=== PATIENT | female | born 1985 | race Caucasian/White ===

== ENCOUNTER 2023-09-18 10:26 | Emergency (ER) | payer OTHER, SELFPAY ==
[2023-09-18 10:41] VITALS: BP 141/86; PULSE 84; RESP 18; TEMP 36.8; O2SAT 99; BMI 31.3
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
[2023-09-18 11:22] LABS: HCG Qualitative NEGATIVE (NEGATIVE)
--- NOTE | 2023-09-18 11:36 | ED_ITS ---
HPI - Female Genitourinary General Chief complaint: Urogenital-Female Stated complaint: Medical Devices Time Seen by Provider: 09/18/23 10:52 Source: patient Mode of arrival: Wheelchair Limitations: no limitations History of Present Illness HPI Narrative: Patient have history of being paraplegic is coming to the ER after she has been having left lower abdominal pain as well as back pain and vaginal bleeding since she had her Alfonso catheter changed she is chronically dependent on a Alfonso catheter since she is paraplegic The patient denies any other complaints she did had her menstruation earlier in August No other complaints of burning with urination or any other concerns Related Data Previous Rx's Medication Instructions Recorded dicyclomine 20 mg tablet 20 mg PO QID PRN abdominal pain 09/18/23 #10 tabs Allergies Allergy/AdvReac Type Severity Reaction Status Date / Time cefazolin Allergy Intermediate Verified 09/18/23 10:46 ciprofloxacin [From Cipro] Allergy Intermediate Verified 09/18/23 10:46 Review of Systems ROS Status of ROS 10 or more systems reviewed and unremarkable except as noted in history and below PFSH PFS Social History Smoking status: Current every day smoker Exam Narrative Exam Narrative: Nurses notes and vital signs reviewed and patient is not hypoxic. General: Well-appearing and in no apparent distress. Skin: Warm, dry, no pallor noted. No rash. Head: Normocephalic, atraumatic. Neck: Supple, non-tender. Eye: Pupils are equal, round and EOMI. No scleral icterus. Ears, Nose, Mouth, and Throat: TM are clear, no nasal mucosal hypertrophy. Or al mucosa is moist, no posterior oropharynx erythema, uvula is mid-line Cardiovascular: Regular Rate and Rhythm without murmur, gallop or rub. Respiratory: No accessory muscle use or respiratory distress. Lungs are clear to auscultation, no wheezing, rales or rhonchi Chest Wall: no tenderness Back: Back examination shows that the patient have midline scars from previous surgery Abdominal exam the patient also had abdominal examination showed that she have left lower quadrant abdominal pain as well as vaginal exam showed that she had vaginal bleeding The patient have bilateral lower extremity weakness due to her history of paraplegia Constitutional Vital Signs, click to edit/add: Last Vital Signs Temp 98.3 F 09/18/23 10:41 Pulse 56 L 09/18/23 15:50 Resp 18 09/18/23 10:41 BP 120/71 09/18/23 15:50 Pulse Ox 98 09/18/23 15:50 O2 Del Method Room Air 09/18/23 10:41 Course Vital Signs Vital signs: Vital Signs Temperature 98.3 F 09/18/23 10:41 Pulse Rate 84 09/18/23 10:41 Respiratory Rate 18 09/18/23 10:41 Blood Pressure 141/86 09/18/23 10:41 Pulse Oximetry 99 09/18/23 10:41 Oxygen Delivery Method Room Air 09/18/23 10:41 Temperature 98.3 F 09/18/23 10:41 Pulse Rate 56 L 09/18/23 15:50 Respiratory Rate 18 09/18/23 10:41 Blood Pressure 120/71 09/18/23 15:50 Pulse Oximetry 98 09/18/23 15:50 Oxygen Delivery Method Room Air 09/18/23 10:41 MDM - Female Genitourinary MDM Narrative Medical decision making narrative: The patient CBC and chemistry showed no acute significant pathology her CAT scan of the abdomen shows the above-mentioned result of possible lesion soft tissue at the lumbar level that could be secondary to infection, the patient was offered to be transferred for an MRI but she mentioned that she want to go to a tomorrow and she does want that today She also had a left lower quadrant pain and she did had ovarian cyst but after an ultrasound shows no acute pathology and no ovarian torsion Urinalysis showed no acute pathology The patient right now presenting with vaginal bleeding at this lesion by the spine is still need an MRI for clarification although the patient have no signs of infection but she does have the risk factor for it the patient will sign herself AMA because she does not want MRI to be done now but she will come back according to her after the to do the MRI During the week Lab Data Labs: Lab Results 09/18/23 09/18/23 Range/Units 11:00 12:55 WBC 4.0 (4.0-11.0) 10^3/uL RBC 4.69 (4.20-5.40) 10^6/uL Hgb 14.5 (12.0-16.0) g/dL Hct 44.0 (36.0-48.0) % MCV 93.8 (81.0-99.0) fL MCH 30.9 (26.7-34.0) pg MCHC 33.0 (29.9-35.2) g/dL RDW 13.9 (11.0-15.0) % Plt Count 206 (150-450) 10^3/uL MPV 11.4 (9.5-13.5) fL Neut % (Auto) 57.8 (43.0-75.0) % Lymph % (Auto) 24.1 (20.5-60.0) % Moody % (Auto) 12.4 H (1.7-12.0) % Eos % (Auto) 4.5 (0.9-7.0) % Baso % (Auto) 1.0 (0.2-2.0) % Neut # (Auto) 2.3 (1.4-6.5) 10^3/uL Lymph # (Auto) 1.0 L (1.2-3.8) 10^3/uL Moody # (Auto) 0.5 (0.3-0.8) 10^3/uL Eos # (Auto) 0.2 (0.0-0.7) 10^3/uL Baso # (Auto) 0.0 (0.0-0.1) 10^3/uL Abs Immat Gran (auto) 0.01 (0.00-0.03) 10^3/uL Imm/Tot Granulo (auto) 0.2 (0.0-0.5) % Sodium 143 (136-145) mmol/L Potassium 3.4 L (3.5-5.1) mmol/L Chloride 104 (98-107) mmol/L Carbon Dioxide 31.6 (21.0-32.0) mmol/L Anion Gap 10.8 BUN 12.0 (7.0-18.0) mg/dL Creatinine 0.52 L (0.55-1.02) mg/dL Est GFR ( Amer) >60 (>=60) Est GFR (Non-Af Amer) >60 (>=60) BUN/Creatinine Ratio 23.1 Glucose 84 (74-106) mg/dL Calcium 8.3 L (8.5-10.1) mg/dL Total Bilirubin 0.3 (0.2-1.0) mg/dL AST 13 L (15-37) U/L ALT 16 (14-59) U/L Alkaline Phosphatase 76 (46-116) U/L Total Protein 7.5 (6.4-8.2) g/dL Albumin 3.1 L (3.4-5.0) g/dL Globulin 4.4 g/dL Albumin/Globulin Ratio 0.7 Serum HCG, Qual Negative (NEGATIVE) Urine Color Lt. yellow (YELLOW) Urine Clarity Sl cloudy (CLEAR) Urine pH 6.0 (5.0-9.0) Ur Specific [place] 1.020 (1.005-1.025) Urine Protein Negative (NEG/TRACE) mg/dL Urine Glucose (UA) Negative (NEGATIVE) mg/dL Urine Ketones Negative (NEGATIVE) mg/dL Urine Occult Blood Large A (NEGATIVE) Urine Nitrite Negative (NEGATIVE) Urine Bilirubin Negative (NEGATIVE) Urine Urobilinogen 0.2 (0.2-1.0) EU/dL Ur Leukocyte Esterase Small A (NEGATIVE) Urine RBC 5-10 A (0-2) #/HPF Urine WBC 5-10 A (NONE SEEN) #/HPF Ur Squamous Epith Cells Few A (NONE/RARE) #/LPF Urine Crystals None seen (None Seen) #/HPF Urine Bacteria Small A (NONE SEEN) #/HPF Urine Casts None seen (NONE SEEN) #/LPF Urine Mucus Small A (NONE SEEN) Ur Culture Indicated? Yes Discharge Plan Discharge Chief Complaint: Urogenital-Female Clinical Impression: Abnormal vaginal bleeding, Abdominal pain Patient Disposition: Home, Self-Care Time of Disposition Decision: 16:03 Condition: Good Mode of Transportation: Private Vehicle Prescriptions / Home Meds: New dicyclomine 20 mg tablet 20 mg PO QID PRN (Reason: abdominal pain) Qty: 10 0RF Instructions: Abnormal (Dysfunctional) Uterine Bleeding (ED) Stand Alone Forms: Portal Instructions Referrals: SHALA CHAN [Primary Care Provider] - 1 week Ingris Peter MD [Physician] - 1 week
--- NOTE | 2023-09-18 11:37 | CT_ITS ---
The [address] [address] Patient Name: CHRISTINA PERALTA MRN: [id number] date: 1985 Sex: F Assigned Patient Location: ER Current Patient Location: ER Accession/Order Number: [id number] Exam Date: 09/18/2023 12:18 Report Date: 09/18/2023 13:29 At the request of: NIKOLAY HENSLEY Procedure: CT abdomen pelvis wo con CT ABDOMEN AND PELVIS WITHOUT CONTRAST HISTORY: Abdominal pain. Vaginal bleeding. COMPARISON: None. METHOD: Dose reduction techniques were achieved by using automated exposure control and/or adjustment of mA and/or kV according to patient size and/or use of iterative reconstruction technique. FINDINGS: There are no prior studies available for comparison which limits the evaluation. The lung bases are clear. The evaluation of solid organs is limited with no IV contrast. The evaluation for lymphadenopathy is very limited with no IV contrast. There is no intrahepatic biliary ductal dilatation. The spleen is normal in size. The adrenal glands are normal appearing. There are no renal stones or hydronephrosis. There is a left adnexal cystic mass measuring 4.8 x 4.9 cm. There is a Alfonso catheter in decompressed bladder. There are prominent right groin lymph nodes the largest measuring 1.8 cm. There is no bowel wall thickening or obstruction. There is no free fluid or free air. There is a retrocrural soft tissue density extending to the level of L3 within the lumbar spine associated with significant old fracture within the lumbar spine with severe anterolisthesis of L3 on L4. There is a partially calcified soft tissue density adjacent to the right ischium measuring 5.3 x 2.6 cm. There is an old left iliac bone fracture with hardware. There is fusion of the left SI joint. CT/CT abdomen pelvis wo con IMPRESSION: Large retrocrural soft tissue density extending to L3 associated with an old severe lumbar spine fracture and spondylolisthesis. This may be a chronic finding however acute infection cannot be entirely excluded. This also may be related to a prior surgery. Recommend correlation with prior imaging. If no prior imaging available and acute back pain and/or signs and symptoms of infection, recommend emergent MRI lumbar spine with and without contrast. Left adnexal cystic mass measuring 4.8 x 4.9 cm. Recommend ultrasound pelvis. Probable old hematoma or soft tissue injury adjacent to the right ischium. Electronically authenticated by: ALEXA ROBLES Date: 09/18/2023 13:29
[2023-09-18] MEDS: KETOROLAC TROMETHAMINE 30 MG/ML VIAL 15 MG IVP (11:49)
[2023-09-18] MEDS: FAMOTIDINE/PF 20 MG/2 ML VIAL IV (11:49)
[2023-09-18 11:50] LABS: Eosinophils Absolute Auto 0.2 10^3/uL (0.0-0.7); Eosinophils Percent Auto 4.5 % (0.9-7.0); Hemoglobin 14.5 g/dL (12.0-16.0); Immature Granulocytes Abs Auto 0.01 10^3/uL (0.00-0.03); Immature Granulocytes Pct Auto 0.2 % (0.0-0.5); Lymphocytes Percent Auto 24.1 % (20.5-60.0); Mean Corpuscular Hemoglobin 30.9 pg (26.7-34.0); Mean Corpuscular Volume 93.8 fL (81.0-99.0); Mean Platelet Volume 11.4 fL (9.5-13.5); Monocytes Absolute Auto 0.5 10^3/uL (0.3-0.8); Monocytes Percent Auto 12.4 % (1.7-12.0); Neutrophils Absolute Auto 2.3 10^3/uL (1.4-6.5); Neutrophils Percent Auto 57.8 % (43.0-75.0); Platelet Count 206 10^3/uL (150-450); Red Blood Count 4.69 10^6/uL (4.20-5.40); Red Cell Distribution Width 13.9 % (11.0-15.0)
[2023-09-18 11:59] LABS: Alanine Aminotransferase 16 U/L (14-59); Albumin Globulin Ratio 0.7; Albumin Level 3.1 g/dL (3.4-5.0); Alkaline Phosphatase 76 U/L (46-116); Anion Gap 10.8; Aspartate Amino Transferase 13 U/L (15-37); BUN Creatinine Ratio 23.1; Bilirubin Total 0.3 mg/dL (0.2-1.0); Calcium 8.3 mg/dL (8.5-10.1); Carbon Dioxide 31.6 mmol/L (21.0-32.0); Chloride 104 mmol/L (98-107); Estimated GFR (African America >60 (>=60); Estimated GFR (Non-African Ame >60 (>=60); Globulin 4.4 g/dL; Glucose 84 mg/dL (74-106); Potassium 3.4 mmol/L (3.5-5.1); Sodium 143 mmol/L (136-145); Total Protein 7.5 g/dL (6.4-8.2)
[2023-09-18] MEDS: MORPHINE SULFATE 2 MG/ML SYRINGE IV ×2 (13:04→15:56)
[2023-09-18 13:06] LABS: Bilirubin Urine NEGATIVE (NEGATIVE); Blood Urine LARGE (NEGATIVE); Clarity Urine SL CLOUDY (CLEAR); Color Urine LT. YELLOW (YELLOW); Glucose Urine UA NEGATIVE (NEGATIVE); Ketones Urine NEGATIVE (NEGATIVE); Leukocyte Esterase Urine SMALL (NEGATIVE); Nitrite Urine NEGATIVE (NEGATIVE); Protein Urine NEGATIVE (NEG/TRACE); Urobilinogen Urine 0.2 EU/dL (0.2-1.0)
[2023-09-18 13:07] LABS: Urine Microscopic Indicated YES
[2023-09-18 13:14] LABS: Bacteria Urine SMALL #/HPF (NONE SEEN); Cast Seen? NONE SEEN #/LPF (NONE SEEN); Crystals Seen? None Seen #/HPF (None Seen); Mucus Urine SMALL (NONE SEEN); Squamous Epithelial Cell Urine FEW #/LPF (NONE/RARE)
[2023-09-18 13:15] LABS: Urine Culture Indicated YES
--- NOTE | 2023-09-18 14:01 | US_ITS ---
[address] [address] Patient Name: CHRISTINA PERALTA MRN: [id number] date: 1985 Sex: F Assigned Patient Location: ER Current Patient Location: ER Accession/Order Number: [id number] Exam Date: 09/18/2023 14:45 Report Date: 09/18/2023 15:41 At the request of: NIKOLAY HENSLEY Procedure: US pelvis transvaginal EXAM: US pelvis transvaginal HISTORY: left lower quadrant and possible torsion COMPARISON: None. TECHNIQUE: Ultrasound examination of the pelvis with transvaginal technique. FINDINGS: Anteverted uterus. Endometrium measures 11 mm, within normal limits for age. Right ovary is not well seen. Left ovary measures 6.9 x 4.7 x 4.6 cm. Normal vascular flow the left ovary. Left ovarian cyst measuring 4.8 x 4.1 x 3.2 cm. There is adjacent complex cyst with internal septations measuring 3.6 x 3.5 x 2.2 cm. US/US pelvis transvaginal IMPRESSION: 1. No acute abnormality of the uterus. 2. Normal vascular flow of the left ovary. There are left ovarian cysts as measured above. One of the cysts is complex with internal septations. Follow-up ultrasound examination could be obtained in 2-6 months. 3. Right ovary not seen. Electronically authenticated by: JENNIE BARRERA Date: 09/18/2023 15:41
[2023-09-18 15:50] VITALS: BP 120/71; PULSE 56; O2SAT 98
[2023-09-18 16:38] VITALS: BP 121/70; PULSE 77; O2SAT 94
[2023-09-18 16:40] VITALS: O2SAT 97
== END 2023-09-18 16:46 | disposition home or self-care (01) ==
PROVIDERS: Emergency Provider Emergency Medicine; PCP Internal Medicine
DX: N93.9 Abnormal uterine and vaginal bleeding, unspecified (principal); R10.9 Unspecified abdominal pain; G82.20 Paraplegia, unspecified; F17.210 Nicotine dependence, cigarettes, uncomplicated; Z96.0 Presence of urogenital implants
CPT/HCPCS: 36415; 51702; 74176; 76830; 80053; 81001; 84703; 85025; 87086; 87150; 87186; 96374; 96375; 96376; 99285

== ENCOUNTER 2023-09-21 12:53 | Emergency (ER) | payer OTHER, SELFPAY ==
[2023-09-21 13:00] VITALS: BP 160/101; PULSE 99; RESP 20; TEMP 36.6; O2SAT 99; BMI 33.9
--- NOTE | 2023-09-21 13:34 | ED_ITS ---
HPI - General Adult General Chief complaint: Abdominal Pain Stated complaint: vaginal bleeding/uti Time Seen by Provider: 09/21/23 13:04 Source: family Mode of arrival: Wheelchair Limitations: physical limitation History of Present Illness HPI narrative: Patient is a 37-year-old female who presents to the emergency department for concern that she may need an MRI. Patient was seen in this emergency department 3 days ago for lower abdominal pain and vaginal bleeding that was noticed after the patient had a catheter change. She has a history of paraplegia. She had lab work and a CT scan 3 days ago that showed a cystic lesion on the left ovary, an ultrasound was also performed to rule out ovarian torsion. On the CT patient was noted to have a lesion on the lumbar spine that could not be ruled out as an infectious process. She was encouraged to have a further workup in the hospital with an MRI, she signed out AGAINST MEDICAL ADVICE. She returns to the ER today because she is under the impression she will have the MRI done today in the emergency department and she is also concerned that the lesion on the spine may be causing her abnormal vaginal bleeding for the last month. She has no new focal medical complaints today. Related Data Previous Rx's Medication Instructions Recorded dicyclomine 20 mg tablet 20 mg PO QID PRN abdominal pain 09/18/23 #10 tabs Allergies Allergy/AdvReac Type Severity Reaction Status Date / Time cefazolin Allergy Intermediate Verified 09/18/23 10:46 ciprofloxacin [From Cipro] Allergy Intermediate Verified 09/18/23 10:46 Review of Systems ROS Constitutional Denies: fever or chills Ears, nose, mouth, and throat Denies: throat pain Cardiovascular Denies: chest pain Respiratory Denies: shortness of breath Gastrointestinal Denies: nausea or vomiting Genitourinary Reports: vaginal bleeding Musculoskeletal Reports: back pain; Denies: neck pain Integumentary/Breast Denies: rash Neurological Denies: headache PFSH PFSH Social History Smoking status: Heavy tobacco smoker Exam Narrative Exam Narrative: Gen.: Awake, alert, in no distress Head: Normocephalic, atraumatic ENT: Moist mucous membranes Respiratory: No respiratory distress Back: No bony point tenderness Extremities: Paraplegia Psych: Normal mood and affect Neuro: No focal neuro deficit Skin: Warm, dry, intact Constitutional Vital Signs, click to edit/add: Last Vital Signs Temp 98 F 09/21/23 13:00 Pulse 99 H 09/21/23 13:00 Resp 20 09/21/23 13:00 BP 160/101 H 09/21/23 13:00 Pulse Ox 99 09/21/23 13:00 O2 Del Method Room Air 09/21/23 13:00 Course Vital Signs Vital signs: Vital Signs Temperature 98 F 09/21/23 13:00 Pulse Rate 99 H 09/21/23 13:00 Respiratory Rate 20 09/21/23 13:00 Blood Pressure 160/101 H 09/21/23 13:00 Pulse Oximetry 99 09/21/23 13:00 Oxygen Delivery Method Room Air 09/21/23 13:00 Temperature 98 F 09/21/23 13:00 Pulse Rate 99 H 09/21/23 13:00 Respiratory Rate 20 09/21/23 13:00 Blood Pressure 160/101 H 09/21/23 13:00 Pulse Oximetry 99 09/21/23 13:00 Oxygen Delivery Method Room Air 09/21/23 13:00 Medical Decision Making MDM Narrative Medical decision making narrative: I had an extensive conversation with the patient and her at bedside. I explained to the patient and her that MRIs are not done through the emergency department. I reviewed her previous records showing a questionable lesion on the lumbar spine. Patient was under the impression that the lumbar spine lesion was causing her abnormal vaginal bleeding. She has not attempted to follow-up with her ultrasonic welding machine operator, she states she did not know that was the neck step. I explained to her that her CT scan and ultrasound did not show any acute process causing the abnormal vaginal bleeding although there was noted to be a possible cystic area on the left ovary which may be accounting for her pain and bleeding. I explained that she should have further evaluation and treatment with an ELECTRONICS TECHNOLOGY INSTRUCTOR. Patient does not have any new focal medical complaints related to her lumbar spine or low back pain. She has a neurosurgeon at [facility] in [place] and sees Dr. Morse for primary care. I discussed with the patient and her that to further evaluate the lesion on the lumbar spine, we would start an IV, draw lab work to rule out any new development of bacterial infection and do a CT scan of her lumbar spine, likely with IV contrast to further evaluate the area. If an MRI continues to be indicated based on findings, patient could be admitted to this facility versus transfer to tertiary care facility with neurosurgery available. Patient states she would like to follow-up with her neurosurgeon at [facility] and does not think that she needs further workup on her lumbar spine at this time now that she knows it is not causing her vaginal bleeding. I did make her aware that she can see Dr. Morse for possible MRI of the lumbar spine in the meantime until she can see her neurosurgeon as he can order this from the office. She was made aware that if she develops fevers, vomiting, worsening of back pain, redness or swelling to her spine she should be seen immediately for reevaluation. I contacted Dr. Lambert's office, TORSTEN Melton who recommended that the patient call the office to be seen tomorrow. Patient is very grateful for care. She was tearful at time of discharge, I explained to her that she should return if symptoms change or worsen and she and her verbalized understanding. Medical Records Medical records reviewed: Yes I reviewed the patient's medical records Discharge Plan Discharge Chief Complaint: Abdominal Pain Clinical Impression: Abnormal vaginal bleeding Patient Disposition: Home, Self-Care Time of Disposition Decision: 13:31 Condition: Good Prescriptions / Home Meds: No Action dicyclomine 20 mg tablet 20 mg PO QID PRN (Reason: abdominal pain) Qty: 10 0RF Instructions: Abnormal (Dysfunctional) Uterine Bleeding (ED) Additional Instructions: Please call Dr. Lambert's office tomorrow for scheduling and when you call, please let the office know we spoke to Dana Stand Alone Forms: Portal Instructions Referrals: Pato Lambert DO [Physician] - 1 week SHALA MORSE [Primary Care Provider] - 1 week
== END 2023-09-21 13:37 | disposition home or self-care (01) ==
PROVIDERS: Emergency Provider Emergency Medicine; PCP Internal Medicine
DX: N93.9 Abnormal uterine and vaginal bleeding, unspecified (principal); G82.20 Paraplegia, unspecified; F17.210 Nicotine dependence, cigarettes, uncomplicated
CPT/HCPCS: 99281

== ENCOUNTER 2023-09-26 20:33 | Outpatient (REF) | payer OTHER, SELFPAY ==
[2023-09-29 21:07] LABS: Age Gdln ACOG Testing Note (.); HPV Aptima Negative (Negative); IGP, Aptima HPV, rfx 16/18,45 Note (.)
== END 2023-09-26 20:34 | disposition home or self-care (01) ==
LOC: LAB 20:33
PROVIDERS: PCP Internal Medicine; Visit Provider Physician Assistant
DX: Z01.419 Encounter for gynecological examination (general) (routine) without abnormal findings (principal)
CPT/HCPCS: 87624; G0145

== ENCOUNTER 2023-10-15 09:20 | Emergency (ER) | payer OTHER, SELFPAY ==
[2023-10-15 09:24] VITALS: BP 153/78; PULSE 100; RESP 16; TEMP 36.9; O2SAT 96; BMI 24.2
--- OUTSIDE RECORDS SUMMARY | 2023-10-15 09:25 | XMS_ITS | CCD ---
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 and nonvital tissues treating hypergranulation tissue presenting along said track. Following completion of the above, wound site was liberally irrigated, dressed with dry sterile dressing. The patient was then ushered to recovery area in stable condition. MD EUGENIA SARAVIA/MICAELA/[id number] E/S: Nayeli Hendricks MD 12/11/20 1317 Signature on File [facility] PATIENT NAME: CHRISTINA PERALTA [address] [place] [address] UNIT #: [id number] : 87 DOS: 12/01/20 WOUND CLINIC NOTE ATTENDING PHY: Nayeli Hendricks MD [facility] Evaluation + Plan note Future Appointments Appointment Date:05/18/2023 08:15:00 AM Scheduled Provider:Anatoly FAUSTIN, Rach Morse Location:[facility] Appointment Type:URO New Patient [facility] Hospital course Narrative No data available for this section [facility] Hospital Discharge instructions No data available for this section [facility] Progress note No data available for this section [facility] Summary Purpose Family History No Family History Records FoundNo Family History Records FoundNo Family History Records FoundNo Family History Records FoundNo Family History Records FoundNo Family History Records FoundNo Family History Records Found Advance Directives No Advanced Directives Records FoundLatest Code Status on File Code Status Date Activated Date Inactivated Comments Full Code 01/25/2021 3:05 AM 01/31/2021 7:44 AM Question Answer Comments Documentation of decision process for this code status: Discussed with patient or surrogate. This is the code status chosen by the patient/surrogate. Code Status History Code Status Date Activated Date Inactivated Comments Full Code 03/21/2020 1:21 PM 04/03/2020 6:35 PM Question Answer Comments Documentation of decision process for this code status: Discussed with patient or surrogate. This is the code status chosen by the patient/surrogate. Full Code 03/21/2020 1:24 AM 03/21/2020 1:21 PM Question Answer Comments Documentation of decision process for this code status: Discussed with patient or surrogate. This is the code status chosen by the patient/surrogate. Full Code 07/11/2015 4:19 PM 08/08/2015 2:39 PM Full Code 06/18/2015 10:49 PM 06/20/2015 8:53 PM Additional Source Comments INFORMATION SOURCE (unrecogn ized section and content) DATE CREATED AUTHOR 11/27/2021 [facility] DATE CREATED AUTHOR AUTHOR'S ORGANIZ ATION 11/29/2021 [facility] DATE CREATED AUTHOR AUTHOR'S ORGANIZ ATION 06/12/2022 [facility] DATE CREATED AUTHOR AUTHOR'S ORGANIZ ATION 09/06/2022 [facility] DATE CREATED AUTHOR AUTHOR'S ORGANIZ ATION 05/19/2023 [facility] DATE CREATED AUTHOR AUTHOR'S ORGANIZ ATION 09/28/2023 [facility] EPIC DATE CREATED AUTHOR AUTHOR'S ORGANIZ ATION 10/07/2023 [facility] Care Teams (unrecognized sec tion and content) Pressurization Mechanic Relationship Specialty Start Date End Date Dalton Saez MD [address] [place] [id number] Physician Orthopaedic Surgery 07/22/20 Nathalia Justice MD [address] [place] [address] Physician Infectious Diseases 07/22/20 Tracy Jacobsen ASSOCIATE PROFESSOR OF [employer] TECHNICIAN [address] [place] [id number] FACILITIES FLIGHT CHECK PILOT Infectious Diseases 03/20/21 Evelina Durham ASSOCIATE PROF[employer] TECHNICIAN [address] [place] [address] [place] [address] FACILITIES FLIGHT CHECK PILOT Infectious Diseases 05/22/21 FOR RECORDS PERTAINING TO PATIENTS WHO ARE OR HAVE BEEN ENROLLED IN A CHEMICAL DEPENDENCY/SUBSTANCEABUSE PROGRAM, SOME INFORMATION MAY BE OMITTED. This clinical summary was aggregated from multiple sources. Caution should be exercised in using it in the provision of clinical care. This summary normalizes information from multiple sources, and as a consequence, information in this document may materially change the coding, format and clinical context of patient data. In addition, data may be omitted in some cases. CLINICAL DECISIONS SHOULD BE BASED ON THE PRIMARY CLINICAL RECORDS. [facility] [employer] [facility]. provides no warranty or guarantee of the accuracy or completeness of information in this document.
--- NOTE | 2023-10-15 12:03 | ED_ITS ---
HPI - General Adult General Chief complaint: Recheck/Abnormal Lab/Rx Stated complaint: UROGENITAL-FEMALE Time Seen by Provider: 10/15/23 09:34 Source: patient and family Mode of arrival: Wheelchair Limitations: no limitations History of Present Illness HPI narrative: The patient have history of paraplegia and chronic Alfonso catheter who had her catheter pulled yesterday by mistake and she is coming for the catheter to be replaced She denies any other complaints Related Data Previous Rx's Medication Instructions Recorded dicyclomine 20 mg tablet 20 mg PO QID PRN abdominal pain 09/18/23 #10 tabs Allergies Allergy/AdvReac Type Severity Reaction Status Date / Time cefazolin Allergy Intermediate Verified 09/18/23 10:46 ciprofloxacin [From Cipro] Allergy Intermediate Verified 09/18/23 10:46 Review of Systems ROS Status of ROS 10 or more systems reviewed and unremark able except as noted in history and below PFSH PFS Social History Smoking status: Current every day smoker Exam Narrative Exam Narrative: Nurses notes and vital signs reviewed and patient is not hypoxic. General: Well-appearing and in no apparent distress. Skin: Warm, dry, no pallor noted. No rash. Head: Normocephalic, atraumatic. Neck: Supple, non-tender. Eye: Pupils are equal, round and EOMI. No scleral icterus. Ears, Nose, Mouth, and Throat: TM are clear, no nasal mucosal hypertrophy. Oral mucosa is moist, no posterior oropharynx erythema, uvula is mid-line Cardiovascular: Regular Rate and Rhythm without murmur, gallop or rub. Respiratory: No accessory muscle use or respiratory distress. Lungs are clear to auscultation, no wheezing, rales or rhonchi Chest Wall: no tenderness Constitutional Vital Signs, click to edit/add: Last Vital Signs Temp 98.4 F 10/15/23 09:24 Pulse 100 H 10/15/23 09:24 Resp 16 10/15/23 09:24 BP 153/78 H 10/15/23 09:24 Pulse Ox 96 10/15/23 09:24 O2 Del Method Room Air 10/15/23 09:24 Course Vital Signs Vital signs: Vital Signs Temperature 98.4 F 10/15/23 09:24 Pulse Rate 100 H 10/15/23 09:24 Respiratory Rate 16 10/15/23 09:24 Blood Pressure 153/78 H 10/15/23 09:24 Pulse Oximetry 96 10/15/23 09:24 Oxygen Delivery Method Room Air 10/15/23 09:24 Temperature 98.4 F 10/15/23 09:24 Pulse Rate 100 H 10/15/23 09:24 Respiratory Rate 16 10/15/23 09:24 Blood Pressure 153/78 H 10/15/23 09:24 Pulse Oximetry 96 10/15/23 09:24 Oxygen Delivery Method Room Air 10/15/23 09:24 Medical Decision Making MDM Narrative Medical decision making narrative: The patient presenting to us for Alfonso catheter replacement and she had her catheter replaced in the ER The patient is to follow up with primary care physician in next 2-3 days or to return to the emergency department should any of the signs or symptoms worsen or new symptoms develop. The patient agrees with the following Diagnosis and Treatment plan and the patient will be discharged home. Discharge Plan Discharge Chief Complaint: Recheck/Abnormal Lab/Rx Clinical Impression: Encounter for Alfonso catheter replacement Patient Disposition: Home, Self-Care Time of Disposition Decision: 10:17 Condition: Good Prescriptions / Home Meds: No Action dicyclomine 20 mg tablet 20 mg PO QID PRN (Reason: abdominal pain) Qty: 10 0RF Instructions: Alfonso Catheter Placement and Care (ED) Stand Alone Forms: Portal Instructions Referrals: SHALA CHAN [Primary Care Provider] - 1 week Discharge Date/Time: 10/15/23 10:22
== END 2023-10-15 10:22 | disposition home or self-care (01) ==
PROVIDERS: Emergency Provider Emergency Medicine; PCP Internal Medicine
DX: Z46.6 Encounter for fitting and adjustment of urinary device (principal); G82.20 Paraplegia, unspecified; F17.200 Nicotine dependence, unspecified, uncomplicated
CPT/HCPCS: 51702; 99283

== ENCOUNTER 2023-12-30 12:56 | Outpatient (OUT) | payer OTHER, SELFPAY ==
--- NOTE | 2023-12-30 13:03 | XR_ITS ---
[address] [address] Patient Name: CHRISTINA PERALTA MRN: [id number] date: 1985 Sex: F Assigned Patient Location: [facility] Current Patient Location: Accession/Order Number: [id number] Exam Date: 12/30/2023 13:05 Report Date: 01/01/2024 12:34 At the request of: MONIQUE MESA Procedure: XR lumbar spine 6V w bending EXAMINATION: XR lumbar spine 6V w bending HISTORY: Acute midline low back pain without sciatica M54.50 COMPARISON: CT abdomen pelvis 09/18/2023 FINDINGS: BONES: Marked posterior dislocation of the upper lumbar spine in relation to the lower lumbar spine with fracture fragments and exuberant heterotopic bone formation bridging the junction. Prior mechanical fusion of the left sacroiliac joint. Posterior mechanical fusion of the visible thoracic spine. DISC SPACES: No appreciable significant disc space narrowing. PARASPINOUS: Filter within the IVC. OTHER: Negative. XR/XR lumbar spine 6V w bending IMPRESSION: 1. Grossly stable significant posttraumatic changes of the lumbar spine with transection of the spine, remote fractured vertebral bodies, and significant posterior displacement of the upper lumbar spine in relation to the lower lumbar spine. 2. Stable surgical changes. 3. No appreciable acute findings to account for patient's symptoms. Electronically authenticated by: CHARMAINE LEON Date: 01/01/2024 12:34
--- OUTSIDE RECORDS SUMMARY | 2023-12-30 13:05 | XMS_ITS | CCD ---
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 dlEkcWihGImkKXhgK600 JEKfwLpjVyPsSQp4K5Oe Ixm3TFFpqVskYH7n pWGtZLnmEg5owOxdzPec BS9lWVDqkxwgc701ZuYu q0rqFBIarTWgZGguEHX0 G43qv2J1NVNxQKHi WOW3nBX4tV7xlHrauncs bGVmdDsgdmVydGljYWwt KAzqC369QQHsrXsaBlGz yDq3P5YrDdw7PRNq tDeoRB5zzAHaBAxsSx9u tBmauQpxND1yEMLxpjpm u552VnRqp0ycZMRynONh BMylOES8F01vb6A8 GBDkALIvXKP8gDO6tX3k bGlnbjogbGVmdDsgdmVy xOlkCHwcQOcnV333WTIo cDsnPlBhdGllbnQg NSnqTNz1M9KuPtgzwLG+ LR03TWBhSC13zFUycGPf e9xedBr5FkLxEVEhAOB5 uCgyARzfi5EhJVSl A13urHQye4O7EHLowRjc pSFlVdJhdTR3dJ7mKHnh zfjgr0kptyxsIncso6od wm05pP91L37mLLnc ZHRoPSIzMCUiIHZhbGln tg9lcH3qMp7+PGNvbCB3 oPP6sY9rLKZxQcZ0SXtk N067CoBduIXxPhvt w2agb4iooTz8RbA4CUKw whTqqQfjQQC5b1LbRd07 X60nYZwlXVQnCPUjLQXc KGZdhXhpvk8onJ6e Ii8+PMGjsSO0eLT8xA2x FlUkLmN5UQpjQ965FfVz xLGwAymaY59lT4JrmMG+ HTJxShs1KKEcoEks EH6swXOvLRpuAj5iVQF2 AcPaMtTuHLemC2DtPZYt mhtijkromYT5XYWbUDSt cZ26Dy1xhVtjYGWa dFMGtN5jnzmzh5hfonuc IqFfOTKpBWj9ZNs5YYEj aZclVaHoXBO4DdY1NBY1 xGDzwM4neWvgjubx rY0vJ6AnOTRxevngVe93 rA5hNwHqSpY0HRsnEvo+ UkFUTElGRiwgREFXTiBN QVJJRTwvdGQ+PHRk RUY3cCgmFYehLNSywT2y MSWlO8q4GqLiGuB8SLgx W2JuSSDzaygzBi89kZ3l AaNcNaL2SUwhI5Se zhO3MCRzxCFpIVskBLX5 L79hq8B7UWYpSPXnIJW5 wBV9rA0epSsvlvkvhIYh dDsgdmVydGljYWwt KIakT833ZZIqgUpeNmGn PfFfIfE5VEa1L0MwRjj8 VENslXmoXR1njZOlQWgv Rz6kcUfqmFevZG9v OXKxocjaPVZmlZ3zQOMb wRIyeAkqTK4lOBOkwhlz r300JoViXIS0OUBhmIRa G2DfaX2sMnRtAUGp EZVsS8QlgQJhSOshX928 AEheQvE6PHIadoKrF4Ps GXWmuHcyRmG6a6X6Yl5w NiBZZWFyczwvdGQ+ ASScBQE3zSudCZwtXXYe hC7qLWAnM5g9YzSxYmA8 OWioW9AoMWYhwgbzUs48 jJ6aUiUlQnD2KUae T0AyioQ1LVNuxKPvWJrc LEB0O04rp7E1QAKzFIRg WFN6fEH5wA5joAtyjztg bGVmdDsgdmVydGlj WZhbNLxpD931ZMIeaUho PkZFTUFMRTwvdGQ+PHRk WTV4kSlxKOfjTIThyR6j GEJoQ3v9KkKhDeS7 ROubC2IdWCWtcivgEm37 cL6xKfUfVaW3JKilK8No otR6REUlqFJvKYxeBEI9 X87yq8F9MUBlKHMp IIJ1uHQ5fB5xuIizknuj bGVmdDsgdmVydGljYWwt NAysO849STPxkNqlEtAx oVTExYScGEJ5UZ08 KX99E0IkTriztXSsiKM+ PHRhYmxlIHdpZHRoPScx LXYcPuMpkEojSZ7pAh3g ZGVyLWNvbGxhcHNl GgDzm4sqNSBjMTuaYV9v gXpiK3FotUL4YSRdx1e5 Ub39I53iH9PxmCM+PGNv xWK4qNZ2mT5iHvSa EcG6YIqxO588VlMaxGSa Esgic3rkn0gdxEl8VbQo POAiqqUojFevOFO3e6Bk Ix33G52hZFdqYPQi ZKDeJGAeDMBzeCecsr8d jE3fLc2+FTAkuVB4eWN9 sR6mYmNnFhV7BSuoW907 PyTahTViOiyrL32s A4PjoZZ+BZJoTys5GGBb iWxcHY1xeZQuFJnfFu0v TWK7TzBoSrUeACpxJ3Rv ZGRpbmctcmlnaHQ6 DJBhUSTclA57Pf1hdYkd Yr7jEZVaLSK1KMTrtRDt S5FqgJ1oRjWxGQDjLWDv I3KcySKrLOqwU589 FGozIrS9WRCrxlJkB0Ud BDPmzUhhRrV4l2L9Tp2L kNcrzWAiZN2eMmEyDWa1 M0JcQdd0TUOulZky XI6pzXGnZZleFn9xoTcw aTvuZB1iOYMjzvype419 RrHan4baFSOfsZOoDQaq HXW2Q95yr9W0ADHd JAEcTJT0vVL0bS7jjSbj bjogbGVmdDsgdmVydGlj HHbxLUahK081SWQasSzg RqRRVeb3M9SfXmg7 CZYvyEcbQO7eiWBsGMvi Ie0qqBaxfPvxPX6iNIAg iiglx461CnAhy3gmVKAj zIDpVAkyGVO8S91p u3E4YFGuTLXwGMQ7dEV2 vU6ozBzvvmrbhIEqiMtx xjSxoBdeBUmrTTpoG225 DMUhkYngRx5SAgv1 L7TlMns4NAMplYqbBM0a qJDmCXqsAz4jwXhrkGyo ID0bGRBjfnupw505LuRb o8idZDUvfKBoIPtz AQC9G06ie9V0NQOgOVFb HFG0xUY6yD5grQigpdje bGVmdDsgdmVydGljYWwt LItsH688ATEjdWbd PlBheWVyOjwvdGQ+PC90 ux84N0TjMafoXdb9NPSm AEA9eZD6cG3zWAFgVDio x7Z5cTN5J9UsbrRt ci1 (more content not included)... [facility] Provider [facility]erson 11-03-2023 Provider Orders [id number]# 1.00OTGTIFF [facility] Progress Note - Nurseon 10-17 Progress Note - Nurse Pt arrives to [facility] via w/c with sig other and transfer independently to be via slide board. Pt assisted into supine position and existing boateng catheter d/c'd per protocol without complication. New boateng catheter inserted per protocol without complication. Pt transferred self back into w/c via slide board and off [facility]W with sig. other. [Electronically Signed on: 11/02/2023 12:31 EST] Leora Malone RN L [Verified on: 11/02/2023 12:31 EST] Leora Malone RN L [facility] Coding Summaryon 10-06-2023 Coding Summary HTMLBase 64 LcmqnuaqHOp4mRc+PGhl YWQ+AV0ZWCXvF18guEIb yT3iM5SZEPoAUxunSNEY RPqOVaMczgPmFE8ayXAx ZXJu IC8+IW3hORTpVkqxmVAu s9H9lOL8N94lla7fHBud sNG8URVeMzJcftvli2um sSt5ZPlbYluuRiZe FJSwmG41URM1aM87Wy98 cGRomNEld7wtoSw8VsOl SFAbJKO1xMjoYSkxj4Fs JUTiW92suVDpi5I8 IGNvbGxhcHNlOyBlbXB0 wS8bJIxceipzn2vtjtms Zfw6by66rWQex9Y7mTN3 X4UplwF7YDKffYWn TqrwnIOPmZ5fsbivy6ed jpmnWkDfNFXyQBj5WGb1 HPIedBroFmErKA09DXR7 FMMmqpEcC2PjKPOy uElwCiI4k9I1La1TG5LU NtxcB8FSFJWYADdbiQO+ PJ58fp63B9FqDahvMks0 TJQbOBD6sTL7tG8o SFUrTJtex4U3vRU5J7Rk swIlwp5cl1zkMOAzQKco M07ffIJjd7A1RXYajZE9 FKZwlVzfFzGekB79 Oyc+GDOsyWmvv5LqVjrr x2suc7dauIi5EfmdFYXt glSmlYprOMY9j2HvKt3b SOWufOX5pPI4iU2o QaSzLyW9LVugO757UhBz nPUjShciQ87dS5AvbHH+ RMOsFid8IAKnwMsxSH2w J4GhSYEojqfjvCNd oKuoOU3tBFAelherJZOv xF3cDBQfN5m1OiEvVbG3 SHoaD5BsHLClnuhtAn70 xC7lWvUrPtG7CXza P4MfuqR9QIKbdCRcRWds QUV7E29bx5L1XTRbSWTj WRI9mRG6rL2tySbjkyij bGVmdDsgdmVydGlj MCntCCsrF017MBEakPtj PkNvZGluZyBEYXRlOiAg MTIvMjEvMjAyMzwvdGQ+ OVQeSCQ8sOilPROi gHUbLGweHx2ryZsyoRxm RQ7qVIMdhkvwCDFytR7y EAChnXSlyByfBM3mLTWm kvajv687TmRhRUY9 YKBhiHXlA8DusA9oDkBx ACUwULZuU1MpqTZpHRii Z310RNthVwT6UZKfwfPs V6KuZZIbzKprGaF2 p1R4Ci2Fc3XnugtwD0Cc lOLoCwYiRmqwBVw2E8Nf PjwvdHI+DU73DYZiLH09 TGu6EVQ2aJnxWZiu GAJgR4ZrqM5cHnVhTTJc ZGRkOyc+PHRhYmxlIHdp ZHRoPScxMDAlJyBzdHls YE4pGo2nXSGpHTKe cGheeIKpUhNkh3zdOFNu RNoxCD5qkRwgC7ZsqGM4 AHWku8h0Xc82Z54bG5Cm dXA+EQEbeMO5pZR1 oD2bMrJdVxP4JQmxE892 PeEzmFVbYvrdc6cbn0qa hNl6AmK5PNJaqsRgiTjs XHJ5a4GcJu52C34r IHdpZHRoPSIxNSUiIHZh pYofam2ovZ2gBc6+PGNv bQS4xDU9lC9cKuOkMjL4 TLztS318UkJkwCJa Mcoan5xni9wafWa2XnVu SKUzziStgTwiRIT2n0Lo Jj91Y8OyyUrbp3AlJzy4 xh03dYIqx4I2eKX4 M8ZbYHKjfssjqEVmxWqw EH1oPDKghqrtFOFweO4v SOXkV8t8UoVdDzQ8QGjq H9ImypE8WMMviSGb EQEslEGFtF8ksydsu5wc daknEgNyITYzJWa1JIm0 GEPvxLtvNbWhCRE0HpP4 FQB5iWMiyC7cqVvl sprbcI5qAjh+CHV6cKLs dECNHP8iPxbhjNP+PHRk WMK2tOocILyfUEHxtC7s UQNwT6f7SzYoYtZ3 BMqkC8UqwoG6UZZchNRp WIZfgTYBrT1bexwod1hw zydqPrGzRVTnQZl7TVd3 LWFsaWduOiBsZWZ0 JwS3CVL7aRQgcF8hjAws ynqhfY2dZlc+QmlydGgg OOM8WMx3J6JgHbb1GFNt aZimMP6xvBPeWYng Sr1evRltyEazVT4jMDMu stayk444LeFur0kwLCXf jTYpJKrkJMF2H74gk5G2 HRTlJVCxNIG5nTS0 fB3llDwlplqetKNdqEwu deHrwQufWSvxYUsrY609 NJNxxTqiHyZiDZq7Y6Ie Qaq0GJNceEeoVQ4b uUGjIEhjDb0rmUqmuJub CJ5pRJAkngegt092RwWm z2cdREMykEOzMGiqPIA8 M51pi4D8ZJEeGIWs TKS2bCZ3uQ7sqCxpsvrz bGVmdDsgdmVydGljYWwt OBxeA354UCEaqBddGuHr hIv5R8IcCnt0WVFt nOsgBG4cjIEsQSacDz1t nEvprBukWA1dUQGdyqnl r705OyWsy3pjSKHrlQZd ZUwjPON3M25nd3B0 RJJjKCMtZCM0pUI5sV0d bGlnbjogbGVmdDsgdmVy dEczMCkzPMpjL886USKq cDsnPlBhdGllbnQg TOdhEVq9X5EdAupsrET+ MY15VVGeHX97xMWnpBNk b7avvXb4DoDrJRAuXYN0 gLzjJIwvr3KoRCRg W86fbSVpa6Y5QMKxoYid qJZsMvSluLK6kF0aWZxq eittg3cnszgeSygrb5sf jy76zZ56X26cEQwk ZHRoPSIzMCUiIHZhbGln bu3weA1cIv7+PGNvbCB3 eSE8uN8xLAHnQsT2DFsa A634VeVrzSXyGqpb j7yyq6qkvLr1KgK9WIAq kwFyyXcqZXI0t3YcAw48 M77oVXtkWAXkLPUtBJIg BLGneRbuck9mvK7o Ii8+DTWpwAZ3zXU1oW6x GhVhAqT9EIzgJ902AkLk tJQwHrzkK85uP0QcdGN+ HXVqIdx3NCQvdFky SG5elTGqJQarUm3nWKV2 SfAbRaObJMncR3QzUSMw atrbclklaUW6OPRuSVHt gO20Ak7swHzqUZCt wODZnG9lfaceq1gijmch WwLhSGOfTCj1WHi3HWNb xJapGdHuIKX1UhZ6ACR8 yGYjlA4icOhnympi nD8xY4XxVASnfoodVn03 mV4tWrMyOwT2OYgwRct+ UkFUTElGRiwgREFXTiBN QVJJRTwvdGQ+PHRk SCI5xZymTAtrFHFwkJ8b TFTtC7o4HuNbUeB4QCar F1NoFXYjklqtLe40qO5u LzRoMaN9PYfdC1Hz avC8CMQtwQXrJGamALG9 S10gu6V2GMIrJHJuJCR6 cEW7qA2xkMgtswxxiIKw dDsgdmVydGljYWwt RNtzM723LZDyuHqcJuGb YpZyZoB9BEg8R9AtFop2 TKUegZmnOD1ytFZzZYzu Hb2wxNooyIkwNC9u YBNcvflvYVEarI7oUZOu xXDuqJaiOQ7gDUOsaklp c905YtNuWFT2DSVuwUOy L6WaeW5rQfIuMSIs EROrA0QuyYYuXGjkT640 TKreTdB7REAnhrQvP2Fi SMOpfIbuDdY2t1R4Mz6d NiBZZWFyczwvdGQ+ AOPhOYY1mVjqYEroPIHa rF5eINZbJ7c0KwLfZtX3 WXedR0QeHXLdocrtLv08 qN7nOlXyBiQ7GMsf T3RoraQ4CBCgbVFpFKte JMM7L81do6T1ZLKeNEAj NHQ7aVZ9hY1riWqgykln bGVmdDsgdmVydGlj YSqqFThbH955FXMwiUod PkZFTUFMRTwvdGQ+PHRk FEJ1eJwdBTlgBLKzkI4a QITrB1s8LwIlRwU8 IQxzU0HvAFGcezpyBr11 mQ4hRzEyKjV8TVstH5Dq nbP9SGFzaNFmOSbgMCX3 L44ym6C4FRYdOWMg UOQ2oNQ0sB7wfBqbspvc bGVmdDsgdmVydGljYWwt GLpbO363EZUtpHhlTpTj cPGTpRUmKPY6WI72 NI84F7RoYrvryQUahSS+ PHRhYmxlIHdpZHRoPScx NAEdAgUfeQrwWO1vWv3o ZGVyLWNvbGxhcHNl FyOgf3bjSKVjSLqzFX1k gLxwC2WryYL4AWSpj0l5 Ir46Q32sF1SqfJW+PGNv oOC5pEZ6pC7eGrIv TaT8YKfjF780MhKslPIg Muzkk7tyw4bskVw5IbFr JRRswxCapPkkUKZ8j3Cc Ry74N51yRWofMBQt YYLuAQAyHPOnvPkhil7y bL4zOx7+WCTeyDR0hNA6 rC2tVfZdWlY3RDadK883 UjOikFSmPzrrA75h L7AovFA+UXJnJrt2NONv lPrgFG5gaEUdHAynDy8t BEU6DvOsIhUbEWdoR0Ni ZGRpbmctcmlnaHQ6 TCQtAHVxoB21Ua4wkOxr Ng6oGEEpYQP1OMXokJRp P5FsaP2sKcRzOMNbMEKb M5JfqHDgGNcrW207 OOhtJrG4JDFqapFgY6Oa FVTomVsfEaM6p5T5Pg4K jHeheODyML4uAlUhFSl9 J7HqIpj5WQQaoDiv WG8ebAPbBKchUa5wvZmt nRdtFJ0mQDOlbuohs942 JsUqd2hoRNYdgGIvUPyb ZWL3E25zz3D9NRYr QSXgLWD5kLJ0kE4voUky bjogbGVmdDsgdmVydGlj BZazQZpkS915NHOqjSfl AlXRHsh8C2EtZye2 QRUgjDtpOU5soZIwEBug Wx6meXvzpDtcVZ6kEMBs ikcqq737WaLhz3lyOZAu xSGgEBciXUV9K40t x4X3JAOgIZWxYXC4eGA2 oZ0bfYxmjwbtiMFttTic skFigQgkWApxYTjrI636 XQJndFbfVu6VPtn6 H6WqNjn6OXFzlNltNH0z bUKpLMdtIv4paRtfwPji HS7jWQEviulpr817NrXx n8mvJLSczBDgTNno MAV1V72wg6D4AFBrXZVs FZO5yFG7aI4ezDzlclca bGVmdDsgdmVydGljYWwt FHjgR735JGGbsRtd PlBheWVyOjwvdGQ+PC90 pd09S6WnOudlYlh8AOIb HJL8zHJ6jC8sRXDzHKmh g1E7fKK9B1KyeuBy ci1 (more content not included)... [facility] Provider Orderson 10-06-2023 Provider Orders [id number] #1.00OTGTIFF [facility] Coding Summaryon 09-27-2023 Coding Summary HTMLBase 64 CicxzdbcYZn4lVf+PGhl YWQ+QR8QWTSgE76ayOZv jL7jX2WNKHdSAxliAAJB ROeXAmYddsWiMX6orPTw ZXJu IC8+QF0oXWGtFizdnFAl v2S2bCY6R05svz0mLJyd iUZ3RFRyMuTlozhxr8ax gHl5QXuxUgsmWzKh CRNylB84XOW0fU63Yj81 fQYenRGub7dokQr6JjRs LFEjFDG6yLeuJXtkh3Ly GEOpA51lcRPdq9W1 IGNvbGxhcHNlOyBlbXB0 tS7aURccpkktp5dcngpi Gjf5rl95oZVgn7J9bLY5 P8CcucA7CRHqzEHa TpbvuQIGcG9usehfm0gg qhjfFlMbCICuTXk3JTf0 HKLviDtyUsPeUK84ESS2 UFBcbqUjD2PdWUWw mViaNmD0f8E3Xh8KA8TD XvwqB9JNDEJCMUqflAJ+ WO49po43L3AqGycdRfi1 WURhVCU4iPC0bJ5p NEEhVQqtj0V9mPN3Q8Yt ylIaht1vg5gwYDBaIXtw X28omQLuw3D2SSLtyHR0 HLAvoLpnGtBsbZ90 Oyc+CYMsvRmtf4XxYspz i2xyf6erpQu0OmgqSAVn qrYqrLyxGOU6u7XiAi4r KIZxjXN1gMF9oX2j GpSaRrM3HYgxN174VfOs tWZnUyfzF26wC8NtbKS+ FMNdNyx5CDVrmUgwII6p P7WmQVInrwbdpXWh mXvfDV7kNEAsbayqXNDb dI9pKFXyR4j7KqPhQoX5 JTwcW5FwHJBxynplPs52 lW3xQtXbIwL5PXai P9PmqmR0YPJpjOLyJCof CUP9K68cj3L2NRAdIHXn EFP6cFL1zA8osYknjlir bGVmdDsgdmVydGlj DIgiTAzvI845KYMtyLba PkNvZGluZyBEYXRlOiAg MTIvMTIvMjAyMzwvdGQ+ DMLuHSK7zFapWGMm qVYbGDrbGq5zsFcelFra ZJ5pMJTdqhvsSPCquF5y KLXktJUklXanDV1aMLCk rpfxz621PwDuASS1 FSLznDEvP5GhpS3jKhQh MNUeXSOqK9HgjVSrEFpt K634QCabUkG4ZTGrzcNd D2TnAKLljHctMoA1 k6W1Ee7Ae6PuntohC7Eh cEJuSpKvGvpsUQh0J0Rn PjwvdHI+KL23UDEySM30 LKw4MMG8nQjuHDnt DCNlP4TgxG9lHoSbEQMs ZGRkOyc+PHRhYmxlIHdp ZHRoPScxMDAlJyBzdHls QA9cCs8pPJTdSVUr eArixKKeQaVdu7ihHJMp CDolJN1ffLxoY7DroEH8 GETvm9q9Vq47V81tS1Tj dXA+SYOemQQ5jDH6 bU3lIgJiInB9HUujB326 YgCttFZdHrmmm5gvm8ms kKd4FmN3NKFduoCclLsx VBY5u6GzOu34K55f IHdpZHRoPSIxNSUiIHZh jKhdis6rzL4kQz1+PGNv dMV3oUU9jN2jPfEuLbT2 JQeaP718UwPggPLu Emral7men8tsaTu3PyUr FFIlsqUfwFegNHZ2d7Ko Uy95F2DczBtrk8HmXmo9 cc35iXOtv9N9hWD6 H4HmMNPyzhpzbKHkxFgl HO9pJRNeubwqEWHjwS9n TDZoE5i5IkPoEsT4XYyl H8IjdpQ3WPDqkUVv SNFuuIENvU8eqvouy5dg pwtwIqXsPHYrZDo1BFl9 XEIjqXxoGtVqMMG4YuF3 XMN3xUWmrT6bgDzj stuoiH2tEdb+KTQ8tUMh fIWBZY7uPjkkuTH+PHRk MTA4oZxbRUiiBLPjtU2v QUHnM3r2RcGvXkV4 JNluX3AcpmK8SJMrsMXz KGJwtBYSuP8cqctsa5xm esohYzXrWOOkUId9EAg3 LWFsaWduOiBsZWZ0 RwE2SUA4mUBklA6saDqh nctqpZ3cVbn+QmlydGgg LAH5VWm7P7GxXws3TYVg vSrdNB3heHSlRZzc On2qeAhoxOkoRO9yTCXd gwudd007YtEng8ftOTXc iXVdTRtcTMB5V05sl9X2 XEVjCRUcJQK5zZG4 hN7jjFcfhuvxrSSklFkb lgSdvSvzDNxzSLyqM378 KNSaaTczGdPtRIc9Z8Sp Qnw5XWXwlDlbFN8a hDOyYSefCm1voIbbqZkp TN0jFFTqgqwwe936YuGe o8oaDCSzdFEfOEmrUYV7 L54km8P5BZSgUMNb PLE4rTH4oF9dyWfrrhhn bGVmdDsgdmVydGljYWwt ZFnmZ979UEHskOawKcDj hHm0L1UuUzj2LLPj jWuyUJ8kcSIoSZpjZd6v kKjzeOyqHP8qACRlvant n278MwJru9lxQCAzrMHb AMlaYHO2B99wq8O8 MUVdGRPmVSY3nLE1pQ3s bGlnbjogbGVmdDsgdmVy aCgoJHpoXPtyQ315EJWg cDsnPlBhdGllbnQg IPddVKn5A7UbClfheJC+ BK78CEJsZV12qYFidTLb z8msgWm4HgDbWPMdXRS8 aGqhRBmty4KdFCWe T71brRHiz1I8PWZnoVcd zDBlEzNjuXC7xH5kMQzn wmxhs0rkgsygPkbci2nz gq05eL95X56eXKlv ZHRoPSIzMCUiIHZhbGln iz1ayZ1jMg0+PGNvbCB3 eNE2tF4lLWZtTxF1VRmo B825ViEzgFVmOzro r4wop7vdaHs9CpI7XQOf qwElhXafVEP4j0EuWk42 N48vYKpsPPNiWZEpHLYs OCYpePezaa7mpY2c Ii8+AKZozBB8qOR7bG0g VkLiBcW4GXrzX095NaPb vNSfDhajC22uQ5MvfXR+ BDXuMjx7DPNujEpn OK1eeYJjKYbfOv1uJKG6 RoWtBxXlTKegA2JdNLVo hiwhxlgkaSB2YHQdWUMd pG70Dh1zfUliXTHn bAURdV7mgorpn0tujqzt WgTzWTOgOIm1PMp1CXUy hUziEkLlQCN7XqF7QCR4 mGOtxY7eiUilqsug lN5dP3CnYLHsnzcdRd58 uM4eFoIwEfB4CSmzAtb+ UkFUTElGRiwgREFXTiBN QVJJRTwvdGQ+PHRk MAF2fDjsNZihQRUveY7a TJBxM3z9JiCaBsI2FShh K2MmPCJeqokiRn64iO3v NgMwLxB9NUfqI1Hv quO4CCGbyOHpKAnyVHW5 X44oz5L9XUVqZADgEYB1 jEW2nA5kpVkcqbvlbHYq dDsgdmVydGljYWwt MRnfS931ZKQptBnkEdHv LhLwUpP6RWy6C8CuNri6 LXIcxTwjCN6kyHByFFui Ri4bgXtcaLzaDH0a VJJmrmyxPKTpcQ2fDTFe vJKjuAsqXS2qUNHjyrzg e226KzMkDNT6RBNfkPBl P7EenZ6sRcKcSMVs PIHxQ0IxhECrNKgpO261 CIbkCzU2YVBuonGcY0Sg UVXvlDsxEoD3d8A2Iv5f NiBZZWFyczwvdGQ+ WNDiQUG0dKsoSVdsJGZn sQ4yLOBgV4g1XkDeThH3 SQvsZ3IlYAWkzyvbEd72 kC2sObQdHyL1UGmg C2FlegL9LSFkrBThWVtz LZO9O75xv7X0NXKeFFTz ILJ6zUC0kT2pyPwwneqy bGVmdDsgdmVydGlj IVpvFAexU754HHBlrTbg PkZFTUFMRTwvdGQ+PHRk YHX8tTpxNMlpUYFhcY0q DWLeH3w8LvBmXeF7 PEypP2JwJWNqkjveXk39 lN5jGcPrPaN0DGtpQ5Wv gxK1TPXrnHSgRKqpQLM8 W00mp0W8XYItWVWw DDP1fRU2gW8fgYvuxgbd bGVmdDsgdmVydGljYWwt CUtlW429AIDmnZanLqNs vWCYsHPyAFF5TL15 UN64G1JkUtpgbRTwhBX+ PHRhYmxlIHdpZHRoPScx BIJqTfTyrCwwWQ0sSl8a ZGVyLWNvbGxhcHNl VlCzg9wqEQDjXQyiQQ4k mZuyM6KmgHE1WTVqm5g9 Dz46D25uX1MaoYD+PGNv eGN4aJW3jE4sHtWx JcY4JGneS476WjPygBRb Dnizg4bkt8dhbTa4OeEq HMNkzqLglYvuMFS4g4Vk Cl61G65vOYsgRSHj PNJeQFLuZYZlkFuwcu4b tG6rKo5+GECbpPH6bAJ8 iY1sLjOmCyW2MUtuW390 GgLdyGQrRhyzA24y T5BseLQ+LKEvKjd0JQTp wXzxVB8ydUPsBBagVh6l QPO9OxCmKwZaMDeoG0Vd ZGRpbmctcmlnaHQ6 BYJdVPSykR79Df6mcBpx Yd0pEILsBJQ8AVIzjKYp N7EhyC4yKmHmDCNaHCYc F1VljBXxEPphZ702 GMtpTbS7CNBmgoAdC2Qs VAFtoVxkSkN6b0E7Iv5K uHejuAKcRO1sBxKkFDv4 U3YbKuz4JGRgkMjf SF4jpKYiGPriIe9cuZbp xExzRE1aGPPszxibm853 XgLtk1ymKMOxjXIeRBgx MMT3G06az8J2WXGv BXSuNJK5mNX3zY6ekBqy bjogbGVmdDsgdmVydGlj YJfsTGkdX835APZelYyo OzIEPnh8V4ZnBjr9 LQOqkRevRX3cwXGaUPjj Lw9xrTejlCtxLD4qLYEx znsin155JyUww6fyHMKq cDOpSKiiKDK0L78z l4K3TEDuQTNaNWV7fRR0 oN6dyYrsiemavTZxoNie pjMyxJviULnuJUnqP230 MXWgzPnkGc3CHcq2 S6UdQhf8JCJyaGstNT2g bIXwNXtnXa1taDpwuEqc SE6mFZQequvmc613JtJg g6oxHLWihKUsGGgd TCG8A93io4J6FIJbSTPr QVW2bLU0aT1ltIunhndb bGVmdDsgdmVydGljYWwt PBdrY302DOIvlWlf PlBheWVyOjwvdGQ+PC90 rm84P7RdAkdpFaj0GUHv QCK0tTX2uN4rAGOpMAui s0X8rRK4J4RikvCj ci1 (more content not included)... [facility] Provider [place] 09-12-2023 Provider Orders [id number] #[id number] [facility] Provider [place] 09-09-2023 Provider Orders [id number]#1. 00OTGTIFF [facility] Progress Note - Nurseon 08-18 Progress Note - Nurse Patient arrived via W/C for scheduled monthly catheter change. Pt arrived with significant other. Boateng exchanged without difficulty. Pt assisted to cart. Pt brought own supplies except for urinary drainage bag. See IV for further noting. [Electronically Signed on: 09/07/2023 08:56 EST] Savita Oro RN [Verified on: 09/07/2023 08:56 EST] Savita Oro RN Normal [facility] CBC AUTO DIFFon 09-02-2022 BASO # 0.1 103/ul Normal 0.0-0.1 [facility] Comment on above: Performed By: #### C BC #### [facility] [address] [place] [address] Dr. Karina Montero Basophils/100 WBC (Bld) 0.9 % Normal 0.2-2.0 [facility] Comment on above: Performed By: #### C BC #### [facility] [address] [place] [address] Dr. Karina Montero EO # 0.4 103/ul Normal 0.0-0.7 [facility] Comment on above: Performed By: #### C BC #### [facility] [address] [place] [address] Dr. Karina Montero Eosinophils/100 WBC (Bld) 6.2 % Normal 0.9-7.0 [facility] Comment on above: Performed By: #### C BC #### [facility] [address] [place] [address] Dr. Karina Montero Erythrocyte distribution width (RBC) [Ratio] 14.1 % Normal 11.0-15.0 [facility] Comment on above: Performed By: #### C BC #### [facility] [address] [place] [address] Dr. Karina Montero Hematocrit (Bld) [Volume fraction] 45.7 % Normal 36.0-48.0 [facility] Comment on above: Performed By: #### C BC #### [facility] [address] [place] [address] Dr. Karina Montero Hemoglobin (Bld) [Mass/Vol] 14.9 g/dL Normal 12.0-16.0 [facility] Comment on above: Performed By: #### C BC #### [facility] [address] [place] [address] Dr. Karina Montero IG # 0.01 10e3/ul Normal 0.00-0.03 [facility] Comment on above: Performed By: #### C BC #### [facility] [address] [place] [address] Dr. Karina Montero IG % 0.2 % Normal 0.0-0.5 [facility] Comment on above: Performed By: #### C BC #### [facility] [address] [place] [address] Dr. Karina Montero LYMPH # 2.9 103/ul Normal 1.2-3.8 [facility] Comment on above: Performed By: #### C BC #### [facility] [address] [place] [address] Dr. Karina Montero Lymphocytes/100 WBC (Bld) 44.7 % Normal 20.5-60.0 [facility] Comment on above: Performed By: #### C BC #### [facility] [address] [place] [address] Dr. Karina Montero MANUAL DIFF REQ NO Normal [facility] Comment on above: Performed By: #### C BC #### [facility] [address] [place] [address] Dr. Karina Montero MCH (RBC) [Entitic mass] 29.8 pg Normal 26.7-34.0 [facility] Comment on above: Performed By: #### C BC #### [facility] [address] [place] [address] Dr. Karina Montero MCHC (RBC) [Mass/Vol] 32.6 g/dL Normal 29.9-35.2 [facility] Comment on above: Performed By: #### C BC #### [facility] [address] [place] [address] Dr. Karina Montero MCV (RBC) [Entitic vol] 91.4 fL Normal 81.0-99.0 [facility] Comment on above: Performed By: #### C BC #### [facility] [address] [address] [address] Karina Montero MONO # 0.7 103/ul Normal 0.3-0.8 [facility] Comment on above: Performed By: #### C BC #### [facility] [address] [address] [address] Karina Montero Monocytes/100 WBC (Bld) 10.1 % Normal 1.7-12.0 [facility] Comment on above: Performed By: #### C BC #### [facility] [address] [place] [address] Dr. Karina Montero NEUT # 2.4 103/ul Normal 1.4-6.5 [facility] Comment on above: Performed By: #### C BC #### [facility] [address] [place] [address] Dr. Karina Montero Neutrophils/100 WBC (Bld) 37.9 % Critically low 43.0-75.0 [facility] Comment on above: Performed By: #### C BC #### [facility] [address] [place] [address] Dr. Kairna Montero Platelet mean volume (Bld) [Entitic vol] 10.7 fL Normal 9.5-13.5 [facility] Comment on above: Performed By: #### C BC #### [facility] [address] [place] [address] Dr. Karina Montero PLT 222 103/ul Normal 150-450 [facility] Comment on above: Performed By: #### C BC #### [facility] [address] [place] [address] Dr. Karina Montero RBC 5.00 106/ul Normal 4.20-5.40 [facility] Comment on above: Performed By: #### C BC #### [facility] [address] [place] [address] Dr. Karina Montero WBC 6.4 103/ul Normal 4.0-11.0 [facility] Comment on above: Performed By: #### C BC #### [facility] [address] [address] [address] Karina Montero LIPID PROFILEon 09-02-2022 CHOL-HDL RATIO NORM SEE BELOW Normal [facility] Comment on above: Result Comment: 3.3 - 4.4 LOW RISK 4.4 - 7.1 AVERAGE RISK 7.1 - 11.0 MODERATE RISK >11.0 HIGH RISK Performed By: #### T SH, LIPID, CMP #### [facility] [address] [address] [address] Karina Montero Cholesterol [Mass/Vol] 217 mg/dL Critically high <=200 [facility] Comment on above: Performed By: #### T SH, LIPID, CMP #### [facility] [address] [address] [address] Karina Montero Cholesterol in HDL [Mass/Vol] 45 mg/dL Normal 40-60 [facility] Comment on above: Performed By: #### T SH, LIPID, CMP #### [facility] [address] [address] [address] Karina Montero Cholesterol in LDL [Mass/Vol] 153.4 mg/dL Normal [facility] Comment on above: Performed By: #### T SH, LIPID, CMP #### [facility] [address] [address] [address] Karina Montero Cholesterol.total/C holesterol in HDL [Mass ratio] 4.8 {ratio} Normal [facility] Comment on above: Performed By: #### T SH, LIPID, CMP #### [facility] [address] [address] [address] Karina Montero HDL NORMAL > or = 60 mg/dl - LOW CARDIOVASCULAR RISK <40 mg/dl - HIGH CARDIOVASCULAR RISK Normal [facility] Comment on above: Performed By: #### T SH, LIPID, CMP #### [facility] [address] [address] [address] Karina Montero LDL CALC NORMAL SEE BELOW Normal [facility] Comment on above: Result Comment: <100 mg/dl OPTIMAL 100 - 129 mg/dl NEAR OR ABOVE OPTIMAL 130 - 159 mg/dl BORDERLINE HIGH 160 - 189 mg/dl HIGH >190 mg/dl VERY HIGH Performed By: #### T SH, LIPID, CMP #### [facility] [address] [address] [address] Karina Montero Triglyceride [Mass/Vol] 93 mg/dL Normal <=150 [facility] Comment on above: Performed By: #### T SH, LIPID, CMP #### [facility] [address] [address] [address] Karina Montero VLDL CALC 18.6 mg/dL Normal [facility] Comment on above: Performed By: #### T SH, LIPID, CMP #### [facility] [address] [address] [address] Karina Montero PROF 14(COMP METB)on 022 Albumin [Mass/Vol] 3.2 g/dL Critically low 3.4-5.0 [facility] Comment on above: Performed By: #### T EMILY, LIPID, CMP #### [facility] [address] [place] [address] Dr. Karina Montero Albumin/Globulin [Mass ratio] 0.8 {ratio} Normal [facility] Comment on above: Performed By: #### T EMILY, LIPID, CMP #### [facility] [address] [place] [address] Dr. Karina Montero ALP [Catalytic activity/Vol] 83 U/L Normal 46-116 [facility] Comment on above: Performed By: #### T EMILY, LIPID, CMP #### [facility] [address] [place] [address] Dr. Karina Montero ALT [Catalytic activity/Vol] 8 U/L Critically low 14-59 [facility] Comment on above: Performed By: #### T SH, LIPID, CMP #### [facility] [address] [place] [address] Dr. Karina Montero Anion gap [Moles/Vol] 5.2 mmol/L Normal [facility] Comment on above: Performed By: #### T SH, LIPID, CMP #### [facility] [address] [place] [address] Dr. Karina Montero AST [Catalytic activity/Vol] 10 U/L Critically low 15-37 [facility] Comment on above: Performed By: #### T SH, LIPID, CMP #### [facility] [address] [place] [address] Dr. Karina Montero Bilirubin [Mass/Vol] 0.3 mg/dL Normal 0.2-1.0 [facility] Comment on above: Performed By: #### T SH, LIPID, CMP #### [facility] [address] [place] [address] Dr. Karina Montero Calcium [Mass/Vol] 8.7 mg/dL Normal 8.5-10.1 [facility] Comment on above: Performed By: #### T SH, LIPID, CMP #### [facility] [address] [place] [address] Dr. Karina Montero Chloride [Moles/Vol] 103 mmol/L Normal 98-107 [facility] Comment on above: Performed By: #### T SH, LIPID, CMP #### [facility] [address] [place] [address] Dr. Karina Montero CO2 [Moles/Vol] 31.6 mmol/L Normal 21.0-32.0 [facility] Comment on above: Performed By: #### T SH, LIPID, CMP #### [facility] [address] [place] [address] Dr. Karina Montero Creatinine [Mass/Vol] 0.41 mg/dL Critically low 0.55-1.02 [facility] Comment on above: Performed By: #### T SH, LIPID, CMP #### [facility] [address] [place] [address] Dr. Karina Montero EGFR-AF SWISS >60 Normal >=60 [facility] Comment on above: Performed By: #### T SH, LIPID, CMP #### [facility] [address] [place] [address] Dr. Karina Montero EGFR-NON AF SWISS >60 Normal >=60 [facility] Comment on above: Performed By: #### T SH, LIPID, CMP #### [facility] [address] [place] [address] Dr. Karina Montero Globulin (S) [Mass/Vol] 4.0 g/dL Normal [facility] Comment on above: Performed By: #### T EMILY, LIPID, CMP #### [facility] [address] [place] [address] Dr. Karina Montero Glucose [Mass/Vol] 86 mg/dL Normal 74-106 [facility] Comment on above: Performed By: #### T EMILY LIPID, CMP #### [facility] [address] [place] [address] Dr. Karina Montero Potassium [Moles/Vol] 3.8 mmol/L Normal 3.5-5.1 [facility] Comment on above: Performed By: #### T EMILY LIPID, CMP #### [facility] [address] [place] [address] Dr. Karina Montero Protein [Mass/Vol] 7.2 g/dL Normal 6.4-8.2 [facility] Comment on above: Performed By: #### T EMILY LIPID, CMP #### [facility] [address] [place] [address] Dr. Karina Montero Sodium [Moles/Vol] 136 mmol/L Normal 136-145 [facility] Comment on above: Performed By: #### T EMILY LIPID, CMP #### [facility] [address] [place] [address] Dr. Karina Montero Urea nitrogen [Mass/Vol] 11.0 mg/dL Normal 7.0-18.0 [facility] Comment on above: Performed By: #### T EMILY, LIPID, CMP #### [facility] [address] [place] [address] Dr. Karina Montero Urea nitrogen/Creatinine [Mass ratio] 26.8 mg/mg Normal [facility] Comment on above: Performed By: #### T EMILY, LIPID, CMP #### [facility] [address] [place] [address] Dr. Karina Montero TSHon 09-02-2022 TSH 1.071 uIU/mL Normal 0.358-3.740 [facility] Comment on above: Performed By: #### T EMILY, LIPID, CMP #### [facility] [address] [place] [address] Dr. Karina Montero VITAMIN D 25 OHon 09-02-2022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
== END 2023-12-30 12:57 | disposition home or self-care (01) ==
LOC: RAD 12:58
PROVIDERS: PCP Internal Medicine; Visit Provider Nurse Practitioner Family
DX: M54.50 Low back pain, unspecified (principal)
CPT/HCPCS: 72114

== ENCOUNTER 2024-05-04 09:41 | Emergency (ER) | payer OTHER, SELFPAY ==
[2024-05-04 09:48] VITALS: BP 126/84; PULSE 115; TEMP 36.8; O2SAT 98; BMI 19.4
--- OUTSIDE RECORDS SUMMARY | 2024-05-04 10:09 | XMS_ITS | CCD ---
Author Organization [facility] Care Team Providers Care Vocational Rehabilitation Supervisor Name Role Phone PROVIDER, UNKNOWN Attending Unavailable PROVIDER, UNKNOWN Admitting Unavailable PROVIDER, UNKNOWN Attending Unavailable KLAUDIA CAMPBELL Referring Unavailable PROVIDER, UNKNOWN Admitting Unavailable PROVIDER, UNKNOWN Admitting Unavailable PROVIDER, UNKNOWN Attending Unavailable PATIENT, SELF Referring Unavailable AL MASDAMIÁN, KLAUDIA Admitting Unavailable AL IMANI KLAUDIA Attending Unavailable AL IMANI, KLAUDIA Admitting Unavailable KLAUDIA CAMPBELL Attending Unavailable CINDA, DR YVETTE Sorenson Admitting Unavailable HEMMER, DR YVETTE Sorenson Attending Unavailable HEMKAUSHIK, DR YVETTE Sorenson Consulting Unavailable SHARIFA ADAMS Admitting Unavailable SHARIFA ADAMS Attending Unavailable SHARIFA ADAMS Consulting Unavailable Se FAUSTIN, Dalton Degroot Unavailable Vinh FAUSTIN, Nathalia Cano Unavailable [phone] [place]o DIESEL POWER MECHANIC-TIPPING MACHINE OPERATOR AUTOMATIC, Tracy Unavailable [phone] Herminio DIESEL POWER MECHANIC-TIPPING MACHINE OPERATOR AUTOMATIC, Evelina Unavailable [phone] SHARIFA ADAMS OBSTETRICIAN/GYNECOLOGIST-C Primary Care Physician Yun Hermosillo Unavailable Unavailable Maria De Jesus Denton I Unavailable Unavailable Sandeep LOPEZ Attending Unavailable Rach Ledbetter Attending Unavailable MENDOZA GIPSON Attending Unavailab SHARIFA Davison OBSTETRICIAN/GYNECOLOGIST-C Referring Unavailable Singh Morse MD Unavailable [phone] Singh Morse MD Primary Care Provider SHARIFA ADAMS Attending Unavailable SHARIFA ADAMS Attending Unavailable JEWELS SHARPE Attending Unavailable SHARIFA ADAMS Attending Unavailable SHARIFA ADAMS Attending Unavailable SINGH MORSE Primary Care Unavailable Sreekanth Dey Attending Unavailable Sreekanth Dey Admitting Unavailable Dey, Sreekanth J Admitting Unavailable Dey, Sreekanth Alberto Attending Unavailable SINGH MORSE Primary Care Unavailable Dey, Sreekanth J Attending Unavailable Dey, Sreekanth J Admitting Unavailable SINGH MORSE Primary Care Unavailable Dey, Sreekanth J Attending Unavailable Dey, Sreekanth J Admitting Unavailable SINGH MORSE Primary Care Unavailable Dey, Sreekanth J Attending Unavailable Dey, Sreekanth J Admitting Unavailable SINGH MORSE Primary Care Unavailable Dey, Sreekanth J Attending Unavailable SINGH MORSE Primary Care Unavailable Dey, Sreekanth J Admitting Unavailable SINGH MORSE Primary Care Unavailable Dey, Sreekanth J Admitting Unavailable Dey, Sreekanth J Attending Unavailable Dey, Sreekanth J Attending Unavailable Dey, Sreekanth J Admitting Unavailable SINGH MORSE Primary Care Unavailable SINGH MORSE Primary Care Unavailable Dey, Sreekanth J Admitting Unavailable Dey, Sreekanth J Attending Unavailable Allergies Allergy Classification Reported Allergen(s) Allergy Type Date of Onset Reaction(s) Facility (4 sources) ceFAZolin; Translations: [CEFAZOLIN] Drug Allergy 07-02-20 15 Itching, Rash [facility] Repository (5 sources) Ciprofloxacin; Translations: [CIPROFLOXACIN] Drug Allergy 07-11-20 15 Hallucinations , Eruption of skin (disorder), Unknown, Rash [facility] Repository (5 sources) Ondansetron; Translations: [ONDANSETRON] Drug Allergy 04-06-20 16 Headache, Other, Unknown [facility] Repository (2 sources) Ciprofloxacin; Translations: [Cipro] Drug Allergy 12-27-19 17 [facility] Repository (2 sources) Ondansetron; Translations: [Zofran] Drug Allergy 12-27-19 17 [facility] Repository (4 sources) Cephalexin; Translations: [cephalexin] Drug Allergy 09-26-20 23 Rash, Unknown [facility] (1 source) Sulfamethoxazole / Trimethoprim Drug Allergy 03-24-20 23 Diarrhea [facility] Medications Current Medications Medication Drug Class(es) Dates Sig (Normalized) Sig (Original) acetaminophen 325 mg oral tablet (1 source) Start: 01-29-2021 take 2 tablets by mouth every six hours as needed acetaminophen (TYLENOL) 325 mg tablet Take 2 Tablets by mouth every 6 hours as needed. 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 infection and 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 (1 source) Spinal epidural [...] Mood disorders (1 source) Mood disorders Onset: 08-03-2023 08-03-2023 Other connective tissue disease (1 source) Neuropathic [...] Value Interpretation Reference Range Facility Coding Summaryon 04-03-2024 Coding Summary HTMLBase 64 PhcmqnxoFKn4jEy+PGhl YWQ+OW5ZYUQfL95pnJTt iJ1wM8MWNFvPJlvtZBRF MOaCYlKqykRaBW7uqMXd ZXJu IC8+NA9xECNcVqpufUUb a7M2wLB5N36dyk7yVDbc fZR8KZVaLdCxvldzq5qs jXo5VTwmZjgcFmEg ONCcmM73VSK5gO84Ap79 oQYguULtp9xilYr6UvXm NXUfPHC2hYxpYByjs7Ir KBLpJ17szGZhn9L3 IGNvbGxhcHNlOyBlbXB0 hW0pSViibeysb0dkmfbc Kuw8vi93tCYtu7V1nQP5 Y4KhjcT8JUQokJIn AzlvmJKFvG1yyozex8of hpgqNdBhISTaXRw3QTq7 JELlcWypHjSqVD01TNV5 GRVpzmNrK4FuQVPo lDdsGuX2v5W8Gl8VL8BW HslpD7IFSHXAKNqrmRP+ BP91gr43R9MdTcbeIks6 AOHpMQW6ePY9lU4g AHFlVMfke5I7yUB9R8Me xgEaau1np0xdOAUtUKuu O34caHAbh1Y6ZJHgzJT5 MTYhyGoaOjDmjB59 Oyc+QWGinZsyn3RfWhjr y5uye5gvaLh1VnclPVBt qkAztVkdXKR0x3WxVm7u KHRwoTJ3nOT4nQ2n CuJtUgU1QQywK897ZhOf tWUfAisgC24iZ9DjtBY+ HEIqUow3LBXwnWseIX9g Y3MpCCPvustouEKv jBqvEI6fPXPinmasVOUu fX8fEGQhW1t3TdMpPbR8 CKolB1LfBXBovngzDg63 gN9wIrXyNbR0BVuj M2YjmuP0HILckDNvGJln ICL1U77lr5P1DOTzVIDz GVF8nKJ2jS0dvGjypkmk bGVmdDsgdmVydGlj EOunFSfcP992JOHykHlu PkNvZGluZyBEYXRlOiAg MDYvMTgvMjAyNDwvdGQ+ HQWyJJZ1dOemPEIf jZYyPRprCg4ubXuuvCio NJ3mUHQvvdaiTBApnX5a NBQfbVWbcCvtLH5tERSn caclc940MdVmLTR4 THIxiTUxX8OglJ5kCyUy VFYhNBNrU3KgeFWoNAbj A166VTazKsX5KPOudwQs X5LoCHPwtHsvEnI8 z8I4Gk5Xx9MmqsrqD2Qg bPAdXeIgFkkxNVt3X1Fp PjwvdHI+YF51MGSzAR71 ASk8AJT7yUriDMns FNBcD4PspX4xOdEhWXUq ZGRkOyc+PHRhYmxlIHdp ZHRoPScxMDAlJyBzdHls NN3kKm3mVKItXPTk mQxagTVtOmVcq8jeWGMf YQurGO4atRpaZ1SntGA0 JMAcf3n1Gd21I89rR8Up dXA+HTIxnQE1dOK7 zS5yArAwJcY1UOyoP037 OpYajJQuKjcfi6gph1yx cMn4EeU6HAXbazDmwWyh EQO2v1RcWz45Y42c IHdpZHRoPSIxNSUiIHZh vYpurp1ccH9sVh9+PGNv dFS5bDJ0jV3jYbNoHfM3 RWeaY774UwGmqMEm Gwzzl4kud5szfQo2VmZc PZTitcSvdKtyPUU4h8Es Be42H5YueKcry0CiJlt2 nq34wNMkw6W7wGO0 H9MkUGBoemnmcPKixOhn DN6xDFFhdhdnCLBsmI3s QFBhU0c6OjMtCmG2YZuq D5OqgfG4FFQupSPj NEOcqFQMcU3vuhxxa1vs ujtmXvKfOJEmESu0BIm1 ZPIhbEjoFrGgGVG5RvX6 PVK5xVPljA2scJly bamlsC5uCga+MNT2vNXx lLCAZD0cHcdyfOV+PHRk PXY0iYbcYOpdZCCogU0s FLIpT0j9ReAkAgQ8 DKqgC9YfgxJ4IBLoaGRz CTLqvCKToV0mneqxk3vw opkwAuAjRREoIHh0KDk8 LWFsaWduOiBsZWZ0 QtT7MMU8dCIzlJ3duPzm itzptC7cFiu+QmlydGgg JCG3JTm6X6TkXbl6DEEg jCxqDU0iaJHcHRau Rm3fwPnzmWttUC3mSAYa rbwqd132WrPfi4zlYUIb zOUkIPphGOH4G57ms8G6 JHBiCPEjXRJ1yVM7 jX3afZdowfzubPQbeLuf dyJlqYtrHDasVDwfJ994 USOonRhwJvIeXFl9Z2Ko Rnr7TFLcoEluTA7z vWPtNBvlNe3eoOxbxJoe ED5aACTgpunxn447SjLy g6lgKHPmsSYmHUdyWHL0 V02nf5Q1EYQjKRZz BUT9jGR9zJ0jrPwxddno bGVmdDsgdmVydGljYWwt DZvjS340TDNimShhHxSz gCf0J0GkMor8BNYf nMjtXM5pvCRuBVxhPe0k oLxpjGnbRY2cAJJsscqh u455OwRbi4doQMTsfAWo JWahUAY4I18bb9I4 FZCnUQWpEWI1oPO0lK2b bGlnbjogbGVmdDsgdmVy tFpbWNdcSEomB787ERWc cDsnPlBhdGllbnQg WQnoYMr3E1RjIxtkvJJ+ KS66KBXfRE75wCTrvUId q0cesXz5XmIeCGLdJOS2 xLrmYOdrf5SdQZLo A37jbJFms8F9ULXquJov qSWgQzYhaSW4oK7rQZnw aolgn8nratezDickm3bq vt29aH43S58lPAon ZHRoPSIzMCUiIHZhbGln id0isA0cJr5+PGNvbCB3 gMM4eC1uQGYnLiY8TArf B866VzWmxIAfFxlt i9nvi8tzeYm4SwE0YSUd lzYmtNszFLY8b4CwEq14 R25gJPxrVIBpZCJbZBNf SAKgrCqqbz7ulQ7l Ii8+WGXvpGC4qPC5pW7r RsWaMkP4OJerF286NxTs bISbWgmqG29fK7CflXF+ OWPvBil4FPFjuYxy RS6aiGKsNIwePc5iLXK7 GlPvOjTjCQukI9MhELEf kcaefherdKL9KJQtJPCl wA67Nj9pwYjpVWGj nJORvB8kbhlma9nzogar UmZlJGJqBDd4OQr8EVDr sGwqKjJpPZB7WiG0GSZ9 zWTiwT1fiKzjkaon pK4nA9DxNWYlctxuZf02 rO1xOqTaGyL3SMohDmo+ UkFUTElGRiwgREFXTiBN QVJJRTwvdGQ+PHRk ERC1gBitLHlrWWBowB9a CBFjG6p9PjAmAkF7VIdx D6PaLLKckmulSs50lA5b KdZkHnH5SWmkY8Up hjQ5YUFucMUhVSgpWXH9 G33xb1D7FEXlOCStIME1 yMF2sF2ttYfmglkapKPx dDsgdmVydGljYWwt HZpkZ552BEThlKjmBxNh VvSnApO5LKi2O9KtEtl5 EQReiCpnZH3neWHwYSki Pg8kiOuvvUhwGA0u NTZqonqwUIKitU7cJFIo uGYjbMikVE6iVSZlfmdk a760TvUhMUQ0PKQzpCGc B2GhdV8lYkAuZSAa SDGmO8NngJFmLUofN346 JBolFbU9WZVszbVnJ4Cp LVPgbKagNpG6k0Z0Lb7h NyBZZWFyczwvdGQ+ VLIdGBW7sLgxKHdvVJTu cT7cHXDxF7g2ElCuPzV9 ZFjmX8RcMKHdbwfvZa20 bX9nLoToLeP3XSfx L6ItcmI9IMKwsVDpNLvw DTG3X13sq9Z9NCCvAIZy MKJ7tGI6zB4ygGrlwewj bGVmdDsgdmVydGlj XUgoKNxsZ006KQWhxLrc PkZFTUFMRTwvdGQ+PHRk NGH1hZqeFXezQQUhxT5w WXMzP8s2LkEtLlZ4 HYclZ7SnHHZmiadcUw95 aT3cAaPzCrG6IRqmI5Pa wiY4MXZzkCJsIDxpILY3 L23wu1U4QVEpLKNo CRU1bTN5pM5ueSwfumdo bGVmdDsgdmVydGljYWwt ZZeuZ874BUJbeAezVhKs yKTWqGAvRLE5GJ66 GY14I4MpXimxqSQaeHV+ PHRhYmxlIHdpZHRoPScx FMNiWvGnxIklZU3tCr4y ZGVyLWNvbGxhcHNl MoEhz8iwVJViOKctVJ5s oBtqX0YayJW7WDZhl3u0 Eo98Z91lQ1EavYX+PGNv xUJ5wHW6xX1wLzRl UnF6YCpxQ600ShXkwARv Jxyjs7mea3aorSo2QiHj BFKurhWpqMsqWDN2y2Qf Aa74D17oSOmlNUOb EASnCUDmSKZvtKeama5f wT0kLd5+IYFacGQ4lAL2 lD7cAwEjBeQ4BDtxE584 NlPxrYVwBjnxY01m K0PvhHH+UBXnEkr2HIQl hMohVZ3kvIZuZLyiTq0a IMQ9UfXvOjMqFLstX3Sj ZGRpbmctcmlnaHQ6 LDUsSODnvM85Hy4meGye Qr9aVXTuNIW6KUKrjYCu W2GawD9jIdKdSQRzTRYp F3ZzjIXsLCfiZ407 KFjfNjF3IUBnxkXeN5Pk URKpiCmiFkX0f9Y9Fx0O sVkncJLvLX9rHaYoHAn2 X5CrFix3RLGrmEwa CO7daUAuBIncIt3kvRxt qGedKU7mSORmapzxy095 PwKjg5jeKYSmrRYyDEvx JWN1R83av9W0TXVw YNVlKJE2wZF9uH5xsPqd bjogbGVmdDsgdmVydGlj XSosXZzqP951TOWjzEil QeVODzk1T8NnTej2 IPNchLsfUE2fdCVhZAqv Yw3cyKfkwDgzAA4vLHBz zkcko352WaQzb8chNHNw nWFiYJjaFLG0H33f a0M5CIXwMSFpJIZ1lFT2 qZ3kjGllvqmjiFXovDbq gjBtaPlvMBffEGwtX148 OJYdcOhgEi4GMkk0 D9OkVgt4GPXlqGnhPI0p kMBcFSfhZl6itJmrhRep SP8aXKOzfiwrr989SsJh j7akJBXbqUMuEVat ECO7J40ck3C3NHAgPEMa NAM5mWP2wB1vyAffmvpc bGVmdDsgdmVydGljYWwt LUufI235UQWioAtb PlBheWVyOjwvdGQ+PC90 mg81U6GqUfiwRyw1EZFx HHK1gDS7mE3bOSKrMWjy w6A1zCV9L1CsvoJg ci1 (more content not included)... [facility] Provider Orderson 04-02-2024 Provider Orders [id number]# [id number] [facility] Progress Note - Nurseon - Progress Note - Nurse 13:30 Patient arrives to have boateng catheter changed out. Patient is independent on using her slider to get on and off the bed. Her s/o was with her and states he is in the process of learning how to do a cath exchange at home. I used all of the patients supplies except for a 2000 cc bag that she requested. Sterile technique was used and an immediate urine was visualized in the bag. 30cc of sterile water was used to inflate the balloon. Patient tolerated the procedure well. Dressed her self and moved herself back into the wheelchair by way of a slider board. [Electronically Signed on: 03/29/2024 13:53 EDT] Freda Henriquez RN [Verified on: 03/29/2024 13:53 EDT] Freda Henriquez RN [facility] Progress Note - Nurseon Progress Note - Nurse Patient did not show up for boateng catheter exchange. Registration was unable to get a hold of patient. Left message with Olena. [Electronically Signed on: 03/23/2024 15:51 EDT] Sophy Araiza RN [Verified on: 03/23/2024 15:51 EDT] Sophy Araiza [facility] Coding Summaryon 02-28-2024 Coding Summary HTMLBase 64 KbxtmyenSMa2lMr+PGhl YWQ+BE7HMJYtN21cpSPn oL2yQ6WEWSbLLpvbZRHS IUeHMpGdcwTaUK9ybSPi ZXJu IC8+BL5lYQRfUepsvBKi i6N5aIL3U50fnq6hCWyg qPV8DDBePsRiignbr1vf xJa0RArgLarjPzOy JMJcdP80WHF2pX60Wx50 fQMpdIZsw4kbbVv2QjWu BLRxHNI8mUurVLtou2Jy VECmB51rpGWeu0Z3 IGNvbGxhcHNlOyBlbXB0 jS1zSDaasuvha5bcmygt Fkl8cy62zYDvx9K5wSO4 F2BzvnU3TCQpoGYn NzkojIJWkJ8sqfalb5hu hgvoHlFaQOAbFOz4PVu5 KKQclQerFiZgGL00PTW4 VUJblpUrL6QnGQHt gLvsLdU3b0W1Hx8SL8LK SlnaC6CCIOYFMKgbcYN+ IS24kh02K0YiWybqSou1 RXSpEBU5gXO3sN2p QUVaJQfjy8W1rYF8X6Ki peFela2ah4cuOHZfAOzq C28bhVSwl8D1OSOldCX8 DKRwsGbfEzExhI72 Oyc+MAFhiHsxp5BfMdav k6xhr2qoiUh1VkzgEZSb ynCunKzyDMD6t7MxWr4y WLBtqES1jQT4mG4d XsZaWvK0QEwaR458IoGi uAVgTsdjW98pR1UqyYC+ KFOlGha5XZRmmUvzVC1t Z7PnWYHiyivnbHHh gMwzHU0oWBImmwzgGUNg wD4fIGGfG0c3BtMjGnY3 NLhsU6OnMOTflgwfYp52 eR2eFyLnHgG6GQeh O7EhsrT4GSPhiEBvAHuz ITB3R76gs4Q2NXRiTCLc PKQ3gUY3mC2vlMreeuvy bGVmdDsgdmVydGlj LRlpAOlmX953SVDsqBuw PkNvZGluZyBEYXRlOiAg MDUvMTQvMjAyNDwvdGQ+ LSCiDWO2qVupPXDs iXNhDLtnWr3trLaerPre EL5bKPVcdbqaGYYcuT2k TQSneNVivChjXB4vEOOb bgizs079BmKvNQU0 ENCcjAGgQ9LvoN3rDvWy RVOuHITeW3QkvPOpMXez Q849NJmzTzS6YBQpytKz M1AbEHOzjNphYpG6 f9A5Bj0Cy1NyvchjD8Nq oNNuOtSeOfclNYf6J9Rh PjwvdHI+RY89JTIkJS28 FCq8HXQ7hRmgOLri XQCuA2NlaU4lCyPsEDHe ZGRkOyc+PHRhYmxlIHdp ZHRoPScxMDAlJyBzdHls UU7uSf6vAMFiQHBz yQjziCCuJwNlx1awDYPg ZLwiXV7lpFheI9RvdJU9 ACFuv1f9Xx29L45eM1Fl dXA+OAWwqYK5aWB0 dD2xIfApGhI3TKfqC204 CmZjfVGmNedba7bzv9he zCo7ZcO9RMYccfKsoUnc OEP8i0MjZj16N37m IHdpZHRoPSIxNSUiIHZh iXudjk8alW4eMl2+PGNv xZX5aDK1bU0kBeOdKmP9 QIngZ968FsSziRLf Joxzf0sde4lugYw3YeQg JYOcdyNwkLywTZH9e7Qc Wg69M4ZrzNjmz5GzImr1 ew54qBMnb8Z6mVN4 K4GgNHYdtldciDZixDne ZW8xBMBwueqhAXNsvB7l GBYhO2h2NbBeOqE9ENfz J9AwguN9RJKvfSJh DKXmlRAHpY2oxvwrg4mt panjWiYnVKZaHZe0CCn2 QJGyjAbzIvFtGIK2AdB8 JAJ0nKHrkC3tlRry xdrolD6aZhb+TZD2bVOa kQTKKA2lNhylqOW+PHRk NZR1rBwsCKctGUNmaQ2d CDIvC8o6GnCfDtE0 EUsgV2MuikQ2XTIgqRWm ULCsjFGYrE6trgyuz4bp gtesTjIfFBCuGJh3LTb5 LWFsaWduOiBsZWZ0 QjJ6YZO1zACiuS3eqNuv gklanJ9yYss+QmlydGgg NAJ8LIb9W0ZjTou1UPEn lUrpSR2mdZFeZUzv Qy5gqEpcxZgiXG5jKRCq psnyy027OiBrc4veSEBx eORsNFxfPHV3J00js3W2 AUUrNJXjPSL0zYN4 cJ7ffOozkjgzlLQhrXbf nzXgcLgkVHbxJVjrO724 ZFFncJekZsBnMXl3O8On Xmu8PJOuvTklNW6p vQOmDMdnRx9qxThgbTpj JT7lWXWorpphg344ZkGt p8cdTOUsuGQiOWbbSEL4 L31xj3C6KWEvBGAl TCX4pBB1wE6mcOskvyes bGVmdDsgdmVydGljYWwt GBeyP939VPImpIylXcKk xMc9S3XfHjr3FBRm hXlnFU9gtLVfZSxhQr0t zTquoLfvJW2lKPIpgyhi f357CgJlo0wlFEEgbBTs JYvbFIH8Q04pw5W0 FBGyVDYwBRW7qIY8xE3s bGlnbjogbGVmdDsgdmVy lChbBJijKAfgY266NOGc cDsnPlBhdGllbnQg WXqqENb9U2IoVhejdXV+ NI08DKXuOJ21qHVdrBKw t0xciLd1HgQeOVXdVUZ4 dTqaUIcps7WaFKCk R04npARdf8Q3LSLufPkt pFAlVoBaxDE1mI2qIMim dbiby2thkbrgZearp1xt tl05oD87E80sBGmv ZHRoPSIzMCUiIHZhbGln hs9ilW6aNf8+PGNvbCB3 hXT4sQ5lZFZzCaZ4ZWjl R373SvAguZZmAdkj j8ihv3uctNu3HwF8ZYTa rzWalXkjRIL2f6FtXc14 F51qJMjvLBSaOUPbWFTt OCAuaKroag1cnT5j Ii8+CQChdLS7cFF5jB6e KaFgKwC1NKgtU905AsOi rGAaZjpfF22aK6PrnCH+ VODwMbv2TKPtlXov RP5jwKLjJGrhBw3dZUO3 WuMjYaLeGRpvP3UpHKWm epspumowtTA0KLVrHNKs vP47St2roOmzSKRr uCGLgF8rnwjlt8jdlegf FeEeADOpTOr7LNw0CLSz lErfLmXsJUM6KyJ6TFA1 lNXrjP8arFjhrhen cM6dO8PmXAJkpempYo10 iF9pAkCnJoN8ZIlyHbm+ UkFUTElGRiwgREFXTiBN QVJJRTwvdGQ+PHRk BOU5hBuxOJtjRAFatQ5h NVQkG5c4OxMfCjX0FGgh O3EkOLJhjyerUo78qW6s XcFeLzQ0DNuaA8Ep geD6HBUnjRZwOYqzYHO8 I75px4V3OMGcQSGmIRB3 mQX0uM6klHrlzmefrLMr dDsgdmVydGljYWwt BXiwZ836GTDjbNacLdBx MrXdIkL6HLs4X1NbPwr4 QJRlxJctGI9dkCGtIKyy Zk8yvDjudXrvKJ4q IEPcotqkUXGbuZ5wVUQo lXIvbUaiBJ3iWTEicezf j847QvQqEPG4ZTKzzKSw N9IbaF1vDmIvSYZk XSAlH2PjvQVwGYsuU971 SLixTtT2KBGuuxFjI3Xh HSMqkRuvSvC7q8Z6Wu9w NyBZZWFyczwvdGQ+ LMZeDZC4jIfzSNvkFNOm pX9pEZQzD4r4RePtOkB4 WAglW8MhQQNdognwJf71 uJ5aNwWyRvS4NMag Q9WcrlV7GYXzgDNkICwu AZP7K64ew3Q0PSKtIUEv MCP2aJU9rV4xtJkiwdne bGVmdDsgdmVydGlj SBvuIDcrP927SJSpoMek PkZFTUFMRTwvdGQ+PHRk XAC1mUhtRMvfWQUeoA3d BAChC7u1LvNcTfU2 UPzbZ3SsGVDrppmqOm46 sQ4aPcKlGnG4DCfkO5Iz fzG3UCWtaIAjKUqjJCU7 B73ry7L1SQUfRFKe KBL6bWD0jO9zuMuogefs bGVmdDsgdmVydGljYWwt GYenT528XVBgyEfcBaNd qSJScSHmETV7ZY93 EE97G2CvTeizaBVblOE+ PHRhYmxlIHdpZHRoPScx DIOiJcLuqJibRP6xOo8e ZGVyLWNvbGxhcHNl EeWea4djAUVmHFgdTZ2x xNgjG3CocMS3VEDpn1e0 Uf21Y43pI6TyvWO+PGNv aDB5dSE6fN0pBcSc FwJ2JJqjE853ItCztEIy Vrauu2obi1uawLh9UzCg NKPzfmBlwMrhULM9u6Fq Zg70Y17hNWnyNYOz YCGlOLJlNONedAwgsl1a cU1nFf0+YEMstJS0vRH9 sH5yKxRsXdO1EJosU122 TqSjtZGkExdzN82y P1XnnOW+YODmSug3OHTi hCvcGI4qjLCiMLjxWv1d EEN4RlQuIiFrJCmlJ8Ft ZGRpbmctcmlnaHQ6 SHEnWVMzkV93Jp1mmNkq Uy0gWCWhOTI2WNWrbXHf D9BmnT9bNbVdGEOrVHBt K9DolLAiDRulM354 AEbeWmB4GSOcxrOdJ0Hr OQNexOwrMdL2m2M2Tf3S rHzsmHEuLN0oAuPgPVl4 E4XoBzq3VNGipCod IH5gnXWvPYzmHl1bkVcq cUibJY9dVNFpmmlkp116 HpWjy0haXCGavLYdTYyi YPR7V51lj8S8VLRh LIJnVRR3mHV8bQ9whBni bjogbGVmdDsgdmVydGlj GAnkJEqzG303VMLclTjc DcMGUez2J5TlIrr4 VCWjgZmdQC9gpHZnZWmw Fc0jqTodqRzdXO7bWLBk fohki457LaDwj1vpJYJp nJMnCInjQAI6U06l b9J1XSIjZSJmZAH6uQB5 rQ6ryZzcgqqodYFiqNll seBvwMycMOnqHSzzZ390 HHSxxQavYb8ONmm0 D0QbQcs4HONwaWsqOA3x jACdICeeCz0gjVhqiDje ST2cOFEtevacf851SgSq r6cpUEKqxRKmCQzi TWU8M10vr3T9VAMnBKSw AWG1kIC1hM8ukRsoavnv bGVmdDsgdmVydGljYWwt SAxwS375VSUgvBoj PlBheWVyOjwvdGQ+PC90 wl80G7UjImfbDrf0VXPe WTD3bMU5cE5uEIHqUXdw l3D8pMF1W2WgtbRa ci1 (more content not included)... [facility] Provider Orderson 02-23-2024 Provider Orders [id number]# 1.00OTGTIFF [facility] MAGR Preoperative Recordon 0 02-22-2024 MAGR Preoperative Record MAGR Pre-Op Record Summary Primary Physician: Sreekanth Dey MD Finalized Date/Time: 02/22/24 12:20:00 Pt. Name: TYESHA PERALTA/Sex: 1985 FEMALE Med Rec #: [id number] Physician: Sreekanth Dey MD Financial #: [id number] Pt. Type: D Room/Bed: / Admit/Disch: 02/22/24 10:59:48 - Institution: Pre-Op Case Times MAGR Pre-Care Text: Patient will be optimally prepared for surgery. Patient is free from s/s of injury. Provide information to patient/family related to plan of care. Verify patient allergies. Confirm identity and verify consent before the operative or invasive procedure. Entry 1 Patient Arrival Time 02/22/24 11:05:00 Preop Departure 02/22/24 11:35:00 Last Modified By: Savita Oro RN 02/22/24 12:19:35 Post-Care Text: Patient is prepared mentally and physically and is ready for surgery. The patient remains free from s/s of injury. Patient/family express understanding of plan of care and participate in decisions affecting his or her perioperrative plan of care. Allergies documented appropriately. Patient identifiers and consent correct. General Comments: [facility] see [facility] for further noting Finalized By: Savita Oro RN Document Signatures Signed By: Savita Oro RN 02/22/24 12:20 [facility] Progress Note - Nurseon 05-0 Progress Note - Nurse Pt arrived for scheduld monthly boateng change- see Interactive View for further noting. [Electronically Signed on: 02/22/2024 14:16 EDT] Savita Oro RN [Verified on: 02/22/2024 14:16 EDT] Savita Oro RN [facility] Provider [facility] 01-31-2024 Provider Orders [id number]# 1.00OTGTIFF [facility] Coding Summaryon 01-30-2024 Coding Summary HTMLBase 64 UanazjlrGTc9hVc+PGhl YWQ+TC6BJZNyR28lbFCh fJ2vS6HYZJmRKjatIQCU EJoAXyOwaqUtWN6xdKYu ZXJu IC8+EB5zKHNtHbotgTEb b6R7vRF8L80gzx2aYJbm pNX7VBQoWpQudgbgl0qr nAw1HOoaYveaUySa FJBlnT74CKH4xS17Cb33 eNOhyXYkm4mxhJl5TwSq ZXGwEIN7nEodOZmfi3Vt NCPhL51tgJUyv1R8 IGNvbGxhcHNlOyBlbXB0 tN8rWBtkmwjln7xfqijd Ffl2cn89yXFsu0L0xHC6 W3VkusL8PEUjuLAg ZmkkuWLWkJ4qbbwbm4ll lkobKmWvMSWkDOm1NHv5 PCLegFniXgJaEC44EKC3 AHLjdqIbD9ViPVHb mJxkBaE3v2K2Eh8ZH4UU JlbkR9DDNKDZSYbifBD+ XK59ud30S0QzEtyzEau0 HZFpESS5uNS6lQ2n RBQaDWeix6B2iUJ1I7Yb tgOhfc0pk5mzFNJgQRii E86jbLEwv1Z8CAAauYN2 PUBsxZksKeGioB47 Oyc+YEImwOcii2RcBcuy f6lxt1bpyMx2WvokDODd eiVgwMajGBC2u0DsJw6m UKZrzEI7eJR9cI1p YlUkPiW1EGedA157CqCq dVOeEwefV85sJ8QjtMS+ WUSoCxj0QWVqaNerPK9y D8UlPQDynfpsuTTo aZpaNV7wUAWtepjiGSVt jO7aAMTsJ2w4WlBnCaC3 AQoxP3ReCAUgcmniIv92 rD7eUxBnVxW5BUsb T6KozcQ2QGWljDGyLYgc MKE9D68lt4S5AFMfXROk XKF2oMY0gI8mxSxnhjcs bGVmdDsgdmVydGlj GHvbWDtjD530OPTxxJyz PkNvZGluZyBEYXRlOiAg MDQvMTUvMjAyNDwvdGQ+ LRHxQVU7sZyrROAw jEEaXIjuOl5qqJqhcTom BG1fIGRkwgvjFVFcfO3z ONFzsKLskPbnWI0tQQZo zyyta961VoIdIQU9 GYJncZQiQ0TqmV3tHeMn LDFdPHFmN6QamAInKHbw X151NTzhFiQ1DDJsiqMx N3EuINQphRksDhA9 i3H1Dz8Au2XaphlqO8Hn dWLqLkOoBkduSWa9E7Ju PjwvdHI+TT61AWIoOB47 CGp7LUM6rYfrESfq NTJmC4BdeW5tWiShLASj ZGRkOyc+PHRhYmxlIHdp ZHRoPScxMDAlJyBzdHls KY9oXa7cVIEtWIHg bKntzNWrMnNcf8hbPIWs NVkxNF1yiEmoR3AhbNA2 BMKqc5o0If53E67zP5Uw dXA+SZZytGQ3bHY2 zA5zPsVkElL4DFmhS453 RrBsaUYwFccqa0fnf2jh tQn0PbQ7XYNckhTbdJmc TIA5x4PsBs64G60m IHdpZHRoPSIxNSUiIHZh kUawte3xkG7cHo6+PGNv fFN1iZB0fT1tWkQfIoS6 NWjcB354JqCmaWFz Dlodc7yrk5vhaVn5VmLz ZZKyfwTruFfuTIA4v8Zv Tb99B5HueDzmk5OmFlf8 rq26yFMwd7J4kXX7 R1BrLUKhxdremBDxlEel RO4kLRYjdkreVKKdmL3l DRQrB5x0PaHeZrO2TFzb B3TldqX2KPZvoWKd FDDpyXKWhA8caoyoz8xf yrprPuJkWTKkLMt6DJy0 QCFnpQolKwTuCRF5PpI2 QPZ4fBRzjE9fwEwm taamgL5tFli+KLC0aHMi uKJGWL9vQgnruPP+PHRk YSI7eRumCSuiAFJegZ4f SWHsD5n3YtYlIhF7 SBpdV7BhvqH8WTYhxKPn JDXgxEGOpT9ncynfv7nz datbZsUzEPNeDEt9JVi4 LWFsaWduOiBsZWZ0 HuC5UII0cWWraH2wlXaw pvctiW1sOka+QmlydGgg JAH8UZs5W4DpAqz4HKZg oAaeVR4hgRLqMZfs Qt3exNbcbUhoWU7mGXCr hdfql742YkWiy5ofYSOd qZCnXZqcJSH5H89hy5X4 QKYdCSMdVKD5pSJ3 sS5mlHjwbkjctVTxyOjz peEzzLszWJcpUWagB348 FEUhoHhwReHoEAs2G5Co Umu7IAJswUsrXS9r eXLlDHkoGq9vjAulrGdm WF6uZZVovmrkg337GdJg d4rfZEDpwWVuMYlzTZP8 J50pk8N9OCSkQZYk DYS9iZA3qS1fvLsmmcfb bGVmdDsgdmVydGljYWwt HTynN730HSCroDmuCiOd mTu9N3IwOnv1XAJk tVxxUG5edFTuBPlaDl0d hDnzhPcsGP1oDEMjllej u757EyVta4ycYOPqgOSf URhuCFY7B66yq6Q4 JNGmLKMnZIZ8jAS8fM6t bGlnbjogbGVmdDsgdmVy jNkoTZnxENneW786GVZf cDsnPlBhdGllbnQg PBbtXHj6I2WxHimhwET+ LP05NYGwZM23nGLayTKq v8jcnTg4DdBzHIUwSRC5 sWwcFNtoi0WfZMDe M17qiSOag5N1YJXquWtl vIGbWuAbuMS9iG7pVSnt gthyi3bqpqqbSvhxu2to yc57dF31Q28mQIsu ZHRoPSIzMCUiIHZhbGln kz5cpX3fBj2+PGNvbCB3 lCR4rI4zNTUcIaV2IPvc K671BqGntCLkUdha d5ker8vtxQr7LiP7YYKv jgNrxMtoIZC1o3RlKm06 W75jDIqrFLXsIVKyKWBx QZEvnFxniv9iaL9g Ii8+PTXowCR3mRD9nN4w JwXpBdE3BZorK640OsBq zJOzCinmT42lV2QdwLH+ PUIeYsq2XLHjaLjd JV4inOVrDLxuLp6mQXV7 JuRmUhDhLHlpI3YuVLPs bftmjuoriJB9PTAbILZp aQ87Cx0lwKajFBTy jMYKrM3xvlmlr9dkxuxx JpWoDKEzURw8HMt9UCLt tDsvNpFtYDX6IiG9DZS1 nHNpxV3nxHbkntqr uA8kK4WwVQMlsushYq44 pP3lFqOyUbL3URdpCsm+ UkFUTElGRiwgREFXTiBN QVJJRTwvdGQ+PHRk QKM4sJafRFvzCBKazE9a HSGbL4p0HqHgMyE4BGhr P4HuFJMkbhiyTg11lC3z ZbErEtG9XTrdF0Ba dbT6WJMxqHLuMOcpGWU0 G04kj1S9LWOgGZVnGWQ0 xEC4zV9osVxgtepkoZVz dDsgdmVydGljYWwt QCoaF988INUpoDneVvVu TfNdDhD6NJr6W0OkBpc4 BPMlgZmbYF1spYInWUwv Rz5isUhivIriUA0k WOZixwdaJQSphH5iIZTe zGLysXloPR5dNIJhnndk i133NoFjHLQ2DMNthIDg N4MbdC3cKjRsKOPa IEMoH8MnxORrSCgaI623 LVwzVbD6SCAyypXdH1Zx QSIvaVafWhI0w7C3Of8z NyBZZWFyczwvdGQ+ JOAiWJQ9tOalCHuyXYPc mN7sFIYjM2e6ZkJyZlB2 RShwS9EvGZPpzxgvTl49 wC1yAfUnJsD2TSjz U2IphoR2FGMhnYQgXXnc OVU1P82lj9P6MLEoMEAr OZP8uGL4zL5laOiyiwmi bGVmdDsgdmVydGlj LNjqWPvoL358PDYypKvi PkZFTUFMRTwvdGQ+PHRk FRP1jAufUKttCMZclI9c RQXwV8p5VhMsAcW6 YGuxP6HuYCDjztenYm31 jJ2rErHeAeD3XLnhQ3Ff vqQ4XZPpzAUgSKfrJKR9 Q22hx2K4NIGsOZEa RBD6tCL2oU4obJyfczvb bGVmdDsgdmVydGljYWwt KQavF770GMDppPfjBaKq xJCUbYKlMTU6DK35 VI34K7QqEhaohQEzlJG+ PHRhYmxlIHdpZHRoPScx QNVtPwRccImoKM6iEo9c ZGVyLWNvbGxhcHNl EiSvm0ppPNUzXWdtMU3n bVovM6FjnRB1XYMjp6y9 Hs73G80vL1WgpOR+PGNv gDL8bOQ3bQ6zBpAw FlP1UMxnZ456PdVcxNYh Hiwav6yfw1nlbJu6JxDi OAIudmQqqZtbTJY7x8Pp Cq22N79cITjvXRLy OPQkSCYjPCLegNlekq7q fS3tRd3+EHXdrQM8yCH3 tG3cHkIbOjI7OHaeZ461 PuFizMPsYxgrB61n K6GxlGY+LEEvSwd8NZOh oLhoLA4laOKrCEnvNp2x MHZ1VsJfXaCfIRdjZ6Yb ZGRpbmctcmlnaHQ6 LQPoRCDnmU35Np2urAgl Cq5aZKMcGSH3YGRsxFCa H8MgeA8hShJhZGNqXOJy E1PcrFFjTHfrJ504 QJshTvF3PKVwnxYqC2Fh SWYlqTwpSnV5h3B6Va0O fIoptDVjHT3cQbSjYXz1 N0PqHqb5HSZmvXui XF3unNJjNIraRv5xjPvw mTnvJQ9fPRAkxcvcn941 LkAik5zvHPMuwLCmRTvc LRH6N28rh6M4TROj SEZdFQZ8pHD1zC4ipQon bjogbGVmdDsgdmVydGlj RCksVBukT379LZTtqXzn ZwPUIve5M2IxOsa2 EXMzsElnAF9ffNOgLZmk Er3feMsufPsdIP1yJIOb jimcs120BeGqs7oiGLPx nLRbJDljQSW1F72b o6G5GNIeLOAjVHU0kPN3 jA7wkRchoeznbIFvsWzq txKvxJvqAEwaRQnvK296 KCVviUbsXj8LPun3 B0PbQfp8BLDjwZkyQV7v bQDeYSuvUa2tjTjvcXhs XY2qJPGtdttjj301LfTo y5whWNJkiAAaRKys HSR5S53lh5Q5YCGzUKGs NLW6yJK1xS3xvIzmwdoz bGVmdDsgdmVydGljYWwt VAsuS665VLYmvUtr PlBheWVyOjwvdGQ+PC90 rd63Y0OzZlciUsi9JLDi DSV8vTF6xE6dOYMuNXyc r1P2uGI5Y0HvrvZn ci1 (more content not included)... [facility] Progress Note - Nurseon - Progress Note - Nurse Patient to PSW via wheelchair accompanied by significant other. Patient denies any concerns with current Boateng catheter. Current Boateng catheter removed and new catheter inserted per protocol without complications and balloon inflated with 30ml sterile water. Patient from wheelchair to bed and back with slide board per self and significant other. Patient denies any further needs and leaves floor via wheelchair in care of significant other. Next appt scheduled for 02/21 [Electronically Signed on: 01/25/2024 11:53 EDT] Sophy Araiza RN [Verified on: 01/25/2024 11:53 EDT] Jose G Sophy [facility] Coding Summaryon 01-02-2024 Coding Summary HTMLBase 64 SlhvftkkMEe8uPi+PGhl YWQ+AM9RJUUoD17bmEFy xX1hN1TWUUfAIdchDXBX LKzGWsCqfgEyCH4glFYh ZXJu IC8+MJ7gHXMoCkuxlZNz l6D3rDP6Z74oog3bFKbm sLA5PWPrIrSjoaiyt3um uMh2ROnqZyliDkPl VBPdjM91GGS6hL21Ai16 vUAqaNBfu9vqtWl7KwFg VJWyCCZ4mVtuDLgwz3Ya MFOcP63uyFIic9Q2 IGNvbGxhcHNlOyBlbXB0 mA4eLEtwhpbyw3psaepv Dww8xx34hPRnh1Z9kPJ7 K6IqyiL3CERxoXLg FbkueOMFwV6kjvbjr9fe sikgTtAkWLRtRCn2CHj7 OFLfqWzvGjNkYU96VCF1 BWAomuWdP6JtSGRy mNzwReH8c1Z6Yg0SX3HH PwizL8KSUJZACKmhtWZ+ SV12jy62I0DeDwbiNcs2 LLQnOUA9gPV5qU7c WIReUDiya3O4hLI2V6Bt hqYvao1xq8jkFGYwDGfh Y67iaXZxw8W7ODCksZM6 XVVuzAvxBuRspJ28 Oyc+COTotJkit7RwXvhf b0jpy2ivqXi9PeosUCYq chXvkAgpLXC1m5HpHt4f PZApiQS6fZA3vH8d FiZoGlK8FFxxK795ZcWi uRMqGpyiF69pO1TwjBA+ IACfPkb1ONLcfJlvFN6q L6YnAFRrnllgdJNy dFdkIA9kOIUxtrkxELSg xE3aVQWvD8y9IpJqMjD8 PTnbN7CiMSZqyzzrFg87 yA4oSxVxEyG6FXrv S5YhvhD9GTJtkSRcXBfx SOM5L38zv0T9JLHyPZTh FLO8hFD3hL2ttOfldhtc bGVmdDsgdmVydGlj LGtpLMwcU820MGNhpTdk PkNvZGluZyBEYXRlOiAg MDMvMTgvMjAyNDwvdGQ+ RELwGEU1aThwTHNi lHTaWHeqPu1iuTzhnLrv HJ3iSMNsdyqrMDOiaD0q HKGypOVvyLcrJA6rCLRw aiowu804WeCaPPP1 UJSgzYZgG2CjtI1xCmZz BXIqEBQaT1KvaEGiZIne A529SGejLgF0XNPpfmAd Q9LcNEHquTroHzG0 w4F5Iw7Su3NofvyhM4Ak tLWzWlUoXequBOa0I5Wc PjwvdHI+AO67JNUjAG81 IZf0STS1wQqmHIfp HBRyC2GtvK9gQeNfEIFk ZGRkOyc+PHRhYmxlIHdp ZHRoPScxMDAlJyBzdHls VC0qHm6oSCEcGEYs nHnrmUGyEmUeg5ouHVXj GYlwDS4zdPqaO7VxvCT4 ZPDid9q0Py09G69qW6Dj dXA+NBPhaXQ7zNK1 nS3tGbSgCfV5QOgnF051 YnMupHWpGntju2yiy9ep eVv9ZvK3PQMpakYysQfc SWI4c3NaBy41Q67r IHdpZHRoPSIxNSUiIHZh nNpwxc6fdI3dHr5+PGNv rQP7eBC4rZ1eBsEnGbH7 OBgqX268AgYywGYo Oostb0zjf1uzkEj5HmSk WHYpldEtjXklWOQ8k2Kj Bb53X1ApsTyey3IvHfu2 zj52uTFpp5S0vZP2 R8BwSVThphtaaZSzvOes NP0vNEKimakfFEBckA5m QRRtK4g3JnKpVsB8UQej V7MhefG4NFSdaNGl SKPwdYCFnZ3fvmeyo9wj jgvcCiBjKWQoJYx4SAn1 OXAcyMoyFpXmQST2FqP7 EZE9pGJrqR3zqPvi tcsvvN1bHrr+NOB5gRZr kALNKH9jPudjlZT+PHRk NGC4xScoZInzUPIevP0s LFQnD5v0OaLcNiN2 THucN0WjxuV2UAFklSPq DQBgtAAXwN5trvxzb2qx gdglOwEtVHUtVYs5TKv1 LWFsaWduOiBsZWZ0 VgB5REC2wHGdwZ4qdIqb nwhjgK3pBgk+QmlydGgg MUJ1JQb7S1GwNzk4YCMz pCarNR0esHZbVCag Pg6ccGvipRdjRN9hXOWx zfshc760ZzJyd2vcJRLt oMJcEUnmTPT9Y08qq7W8 NJVjPFHfLPT1tJU8 tQ7reDertywqtOSdvYph fcDvmCqyOYsbWNpdA354 YQUogDfaOoFeBHo8X0Ua Lrp7JAPsaJbjKF1w zEBsLItmGx8gtKxkwXnq BI8pRDKnrhjxq469MdDd l9hlBBMffKRoQIueVCM2 G09js3V9ZZMlPNKb SOY5rZV0cR0ugCmfnhiz bGVmdDsgdmVydGljYWwt IFopY323KMAdzVjjQmZa wEe6W3EdMfm0INWv xUogFM5hrUQjRRltJt5k eDwmrCetEB3tJJYzoyqv o570ReZcw7atKCPcyWDs FNgxIFK9C51ym1O7 KLPoWVKiAXD3uGL4pS2m bGlnbjogbGVmdDsgdmVy aDroDOruXLpqP972WINp cDsnPlBhdGllbnQg JDohJLp7G8EhXrahaCO+ HX09MMIkEQ42rRWmjLEd f8kqcUz6IdGsSAKmHRG6 hDnfJYchp6XjQXRn U41yqARwu6X1JROlcUub kRGiMsNwkAD7iA9sSZcl ngwud5oluoycKgqmo3tj or37mG80W55oGSkx ZHRoPSIzMCUiIHZhbGln tq3lvI0lOh8+PGNvbCB3 zDC5oY0oKFHdNjT5KMyv J824DnZywUHpDtcy e4rgf6dusIi2OlJ4TWQp ngVhuWriPFL5x6OjUh82 I96bZQcaXSUfAJYlCJUq TJBatDeudy3hvI6j Ii8+WZHjmDE7tQV5sZ2y XlMgLeF4CFhnP421TiPq vLGkBmayI46gP3TwkAW+ TUPkUeq4GIOmtAuv WV5xeAPxMXwbMa6jPBP1 XgCjSoPzSZndT1KlQVYs zemddecgbMY4JEViWPWa oX22Xh7luThgHHEy iEQBvV5moohdt3kvsoaz GcHvWULdLVu8EVw5RMVy qVbgFiUcVFF2SjC0XDW2 oVHezJ4xfMiykely nQ3dC6LtBRZjfejwEb99 wI0dQdVzYaA5HNvaYgg+ UkFUTElGRiwgREFXTiBN QVJJRTwvdGQ+PHRk EHA9yKbmUZewHVQvjA9g VQXtB1p1SiRnGrL2UFbj Z0CjBCRqyorkAk67iZ6d KeBlCoJ1DQykU9Th ppK8OOByuSNiSTzrBAS4 N55yu3K6WFTxHRRsYQE8 sUL6uH9pzPfiqstjuWQc dDsgdmVydGljYWwt NVjwQ591MRDbyLxjRqNr EiScAjB3UPh7D7QhGie7 GMQueRbfED0jvVJeVWag Bt8srTqkuWwkLE9l QXEpoxvbHKQgvB5oQHMe xPDraYeyQV0oXTBlilke i736SzKyBFP1ATCgmGRu P0ZlaX3pHuQdQTBn UNZjX8GuqZLrYWbvS215 BLliUvQ9XVUzunLhH9Wc XHLrvNynUzX4q0S3Jo9g NyBZZWFyczwvdGQ+ KYWvVQU8vCvhEYcyXHZc qI4wAWXnP9n1TqJvEgC8 LSatD3EkKMKwajxrOe80 lS0hPxZuGsX9DDcc D1YwmvM5MRPuzLDzSYtv MCQ5R88kh1O4PHMdEZSv KBE9fAM5uO7iwAxaqhjk bGVmdDsgdmVydGlj XIrbBPicF283PBVhrDhk PkZFTUFMRTwvdGQ+PHRk WSY4fYtlFMhvDYNgdQ9n LQVhZ0f5WnCpBkA6 ZCulC7JoGYJkwmrjKz34 yU5pDuAoBsV9HWjoA1Tm gaQ4LGYmmHKdBCzmLMS0 C55ij8D1AFPqEEYr VBT6tER6yC4xrMohosqg bGVmdDsgdmVydGljYWwt ZUpjA241KOCmbCexZbVe fFASdXDiSCF4PN18 MY30T2ZhVhjwjNNrqAI+ PHRhYmxlIHdpZHRoPScx XOOkRsLrlHnvAF7yBo7l ZGVyLWNvbGxhcHNl ZnRpn4wvBRSiZUdvYF5l oXsmB5XucQF0LNOkt7o0 Ey21B16wH0KsiIL+PGNv gRZ1jMU3cR4jOlUg WaD2QDceI389PbBliAQc Aupqn9ebp8emiDm6NiMk ZPZkofWtlIpjPNV6f9Li Am85K39lGAvjJHRb DILfORIrBRThzKrmza4f sN9nGr4+JXVyxVK3cBB1 fO6mVjExYcT0QStfF490 ZhVnaEUhJqtqQ61j O0RsvAV+KCRnQjd1BDOa xCtuZR2szGThNBvzDt7r WST3MdWaZcZaYUmrW3Zh ZGRpbmctcmlnaHQ6 FLEqWEXbuN68Ds9ihLke Ea0fYVPtPUN5EPFvuEJn N0LdsO2yCgYhYHDvXWGf K9QbtYCfTTcyS036 GRrcPbI3BMBmuvFsS3Rm MRLhsYlgNdX4c8Y9Bg2X yYdwdGOzYQ7vSkAuAQp9 O3SjUbg4YTRmnGor VY6ttWWjHSgmFh8tdRgg xRroPC0xKYDezzlcn291 BvYff8irUTHloYHqIKss WPA8M01zs5W6KSVp NSVxENP0mQK8iC1hkBkc bjogbGVmdDsgdmVydGlj BEvyBZawB472GRBdvTrd MxXLNfe5C6ZfThs3 QCYyzCmuPN7oeTBdYNgd Yx2frLwckOhmCY5wESMc gcptk496VhKoo2dpUMSf bPKkJYcfAZH8Z39a c2X4LIQsVLIdBOG6pQM0 gX3dsZhunjlwvILdjHhm nsHarPktGNofRCexS511 ALYwsHzcYq0OHjs1 J6FtPot2WLQmnEtmXK8r rHFiOAggYz9ikNxnlWfs NO5lJEOpwizfb126DhXz z8blNOYldVJlHWsk DMG2U39au6B0JBMpHYDi QKC6xRG4gN4okDdkwcbv bGVmdDsgdmVydGljYWwt SBrrZ541ZKJojFld PlBheWVyOjwvdGQ+PC90 jt54B6MxHpruKni7EBQs MWI6oHO0zI2qLKUnDHlh i2V7dRI9T0DcvjDp ci1 (more content not included)... [facility] Coding Summary HTMLBase 64 IqewxzrdFIe5bGt+PGhl YWQ+JR4KKUIdI06wdCFf eF0jT0SPVFwGFfehXTPO EVgUTpCtynOnLJ3wiHDs ZXJu IC8+GT4gODOgEnwarDWu q4Y7hLN3G29ntx2sAHba pSX5JRLzJzXdnfung7zf dRc5FBnmSkutCkYe UMTxyR00NCV4kI99Nl48 nKOquGYyz0mqqTo9MzYh SMWxUNC0vUcfMRcpt5Ld PQPzM65qnGYzy9L8 IGNvbGxhcHNlOyBlbXB0 qA2rBCwvingwo7catznx Yge5nr81sMAxi6K2sCV3 J5WconJ6HWGdzHIe XeclvVFSoI1pnoiee9kl jxviAwGjAKFsKKg8TOp7 VVVhsFwoYhGdPF50OWY0 VTQffbKgW6LkESZv cAjvCdW5i7F4An7YY1DG CozmA5VSJQDOSDxajQQ+ OR99gg40J8EuTfamZfu7 NXNxXHN0dCO9sD4x HSWePMikg8J8dOL6I9It mdBkai3ge7woEUOaRFhk L29axIBfh4S9JRZbkYT0 MRQrsSeiUgHijB18 Oyc+TWPfyPbde0WmWikk s6ynm1vyjNd0MdioNTRj gcHnnMcuQAO7z0PjFt0e YNNeaGM2zFR8yA8k CaQsHfI1OWnlN793BcEw pYMyLdbfH24cQ2HfmBH+ ALGeCuc2AYGnpObeGU3v Y4HjDTEhkvonuJVc sVsnPW0iAPOpdoyzMUNn bM7qEFYnP4m9QrWxGoH1 MKjiM4OuNEFothjgMq10 zU1vElAmNoK4LTrv J1MlunA7DCSerKEpTLbn MQS9Z56px3W4TPImVJBg TKB7gGS8xE2imWffafun bGVmdDsgdmVydGlj XEmbLXejF374IHNugKfk PkNvZGluZyBEYXRlOiAg MDMvMTgvMjAyNDwvdGQ+ PKIaRPG6aOsfDLEd fYHySYreYg5egMdtzGuz NO6ySUAefywuCJAfwY7x YQTwlPWojQhyVM0eIPGd gtezv263ZaUgFUB4 NPZolVCtJ8SelE8eDmMz UBGaILWoG1PquDXjYEss B452ZVvtNsU5LQPnooEp F1AlLEXaeSnwDwL8 b5W6Is0Zs4XddcurZ4Xz oSRdKmElJkweARb2H1Cv PjwvdHI+XS48TPMpBW26 OMx5TRZ8cPclCHvb PYMmW2KcpP8pIhEiBOZr ZGRkOyc+PHRhYmxlIHdp ZHRoPScxMDAlJyBzdHls NF6qPl2hFFZsDBUx lJcghRZyXlKiz0vvNXLr BRrcOQ4vmElvK1RtqRS2 EQOts6d9Az25L76nN8Wm dXA+BCZfnHJ9pRV8 hN3hIkQhErL5MQvbL955 KmUgaZXkXchov9qzx9zh cAi7FhL4YQFmxpHsjUlc RRI8t7PkHt58H81s IHdpZHRoPSIxNSUiIHZh fCtwnb9unC3mXm1+PGNv zZD2dHM8kW4jPaYaNkP8 FXitP893TyPldJEu Yrgcq8riw3uoiOc8RbZt BDIvnxCroFtgQQK5q2Ht Wy47K2EpgLbkf8UcTto4 pk03yQZbf6E2cVM3 R4JxEUZlxiahuJRboKfk FU3vPPXwlbpvPKRoyC8w RJNiI7n4PmHgGtU4YXub S3ArlvZ1IRMnvZRd HJQhmCHEgY5ihhcvq2fy gnwaYrDsTWJjPGz9OEu5 IBWftHdsFeLzNAA4WlG2 KEH7zEFnvB8gmRlb sbuvgF5xPzk+XDD8cBYk tHGVCB3rKwzqcWU+PHRk FEA6qUrpPHwbMEIxhJ6d NOUbT5n5JpAhDvZ3 UYjiV4CuveH5JSWciVKi ZJArhDBEwF6kdwzmb7ex adupOyVgSAVrMYp8VGs5 LWFsaWduOiBsZWZ0 DdK6GFP3yAGkoU0bcPle iszvpE2mGxr+QmlydGgg FDS3QBb2S9CwKea7OKJb iUjyNH8doKMdWCtv Kk7ddPunsJyaMY2bDBLu axfyo721HuGsl9cfNHGc xBNjILvwVFF4V10dk6M2 SZCnFDQfOXZ9pUU4 vP0ycUpgupfhiKRgxNvf lpZdnXhcGMsmAAzjQ596 OZRfxAtcCwQcYYg9R2Tm Fpb6WLStrPtnQZ0c wZYrKEjyPr1niCtpnSql JA1fGHAlyhoky211CrYs y3cmMHMaoNZeNVanBYV5 O53hp8C5ZTNoIAHl ARD0nOJ2bY0wtFsczbjx bGVmdDsgdmVydGljYWwt MObyB265EHGlrOepIxZy oKk3G1KnTfv2BAFb kDqzZQ0vbOBtMCgyRc4i zRgotUypCG1lNQBxvyke g200TqCvl4mrVQTzdKLo ZFzfMJP2H99br3C0 OKEeWHTgGLA5eJL6eO3j bGlnbjogbGVmdDsgdmVy bHyoSWwrRIjvD043AWJj cDsnPlBhdGllbnQg AYlsVRt5I4UzOmvjpPC+ LW18JIZxET75cJIjpUZv z6ohmAb7QeBiSTHbRLI4 iZqmLLoxa9QvPQJw Q01gkMLhl5O1YIWsdVzw bEZxUoOhiNI7bY9hKEip gicpp6eonelqBozbe7iq ek94gI03N79qPGqm ZHRoPSIzMCUiIHZhbGln xf9uiE6rCa0+PGNvbCB3 gZA2lA9fJNGpQzN2GDqs O280IvPulBNcNkid z8dca2zomFi7EzM3WLKp tbVrbUcfEPJ4w9KmKj03 E13uDPurNKHvIKHgITPv DUYuvIabba1ggH6n Ii8+HAJfxVH8aED7xZ2m LnZyBiG3LYajA088VvTw tGCvSyauD82aC8QiyUS+ RZSdCgu9IZVotWnk EV0auFCnJYqdMz3mQLM5 KtAbRrHbLTebI7CwKQEm cozksldqdTJ7TLOkLFAq jK98Ie2vqYfaCVCo uLFLqW1nrsomc4ruygoc HvFdETOqQEg9GQr5HFIl iFvrDhXqDJU4OtB8MFP7 qLYidK0quPdftbdc yK3wD7UgFWNhtaleIs91 zP2yJbKdYtT9BStaVhd+ UkFUTElGRiwgREFXTiBN QVJJRTwvdGQ+PHRk HYZ5fBlnMZgwJUCleG7r NRJzV3m2YgHwEkV7IRbq E1LwTUWzocwhSn92rA4b HdXaXtE7PSbgD9Qa bpH7OLKrzRAsROsaWQE9 S25vj1F4ZWMcWTYzGYL7 qJM5mO6ewUrqzirarHXk dDsgdmVydGljYWwt LBxzC916CFRtmEwvJaFc RyJaVjN7WAe9I7VpAnq5 GKJlcLwuWC0moUSeTIky Ne9jvYyyrRosYP0a VSKjzlehDQMpnO0pIAHo bMKivBhxMT6hQEInqeei u802DpQnKBW2VGOqeAPw S1LzgW9oLqYbDQQh IYEsB6AvtSBdPMnoQ652 WDjtNdI5QUQtodUkO0Dk DNVkoTtjVaN7e2O4Um5t NyBZZWFyczwvdGQ+ ZFSaDRH8dQxrDEdpNTVr xZ2bVJHxF0a7ZoQoCbZ7 NVicP1ZsMJLmcnqbOm18 zG1eRiQjKaL1FLqu U8XfyoP4WVMvaXGhRQfq DVR3B44xs1U6DHDjOKQw QXE7sLS0pL2pbSmqdyko bGVmdDsgdmVydGlj ABhsFCuoQ831FABzdNan PkZFTUFMRTwvdGQ+PHRk ILU4bSiyIHskRPIxkN2e RQUaL3t8MqLcJjO2 TAlpY8QfKACzettfEn98 iQ6yNrIaFrT8WIskK0Os hiD2JXQqbXCiIUxmPKJ8 X73hr9K5ATRuJYZq XYX0vOH5xK3arYvhvbzn bGVmdDsgdmVydGljYWwt DFiqX967VUIhyJcuSsWk bWGQiQCyEFG4IM08 WD45S5AsXolhpOEwrLG+ PHRhYmxlIHdpZHRoPScx JXTuXhEouBzuRC5fVh8g ZGVyLWNvbGxhcHNl RdKpy7dqRXZcTIjgLO1j kHjqJ7HbiLW3OTVxn6s0 Yn53S61zM2YbcOH+PGNv zVQ8wZB1nS6eEkEg BvW4GXqdK334ZgTkaKTq Tacqw8cyp0omhYc3OzKu YRFwrjUepKszNOP1d3Ck El06D46fRUwaRQAl GQVeFFTsXYObxUpupy7j xV4fGr2+LPVplJN2cMV3 iL3aMaEpVlZ1MKmqF868 LuYieJCtWtxiE74a L7QuuWD+SUGdPrh6SMVj eJncXH9ooPCrTSpjGo4b OSG4UmXaBtAkOKzyZ1Ya ZGRpbmctcmlnaHQ6 SPMpVOXilW83Rv8scYts Hx4eNXFhPFH7MNDkzJEu G9VnoH5jKcXaRQAtSBWd N8IubPMqSGntM175 SCnyZqZ4IMIfudUvI9Ch ZSGdjAdzOqB2f2C5Jh6E vOimtBRbXM9kNlAkRBt8 M9QiXtn7YVYhsUoa XQ0ysJIuAKuoSh8qhGft vQnmSO5hTPRbucgmn543 StNqx6qfMIMusLKlDVam NFD3A68xe8Y9AFAa EPJmHMN6oBL4pC0edTmo bjogbGVmdDsgdmVydGlj WBpnDFkzU499BIVqxEph YmNLEod0O1HxYko3 LWMotFncBY4bbCAwTVsr Md0hhOfarDnzYL7jYPFy wbcqg087SySzj0mmHTIw pNFyMIvdYXT9Y33o x4M8QQYhBNBqFYL6yVW2 hZ2xiPcyswjjkEMvbMui baDwsHnbXVulYHoiC948 PCVabOzmUw3BRxm8 R6JcXkr9NDXefRnnQY5h lCStIRrxEm7haOiccTnp BX1uNABpjcsyq430EhXq s8qxFJJhaPDsXYcq CBA9W19xg4D8ARFgJDLq BWP9sDT8eT8unYnmzxzc bGVmdDsgdmVydGljYWwt DFerK985TYUhaZsf PlBheWVyOjwvdGQ+PC90 ac65C1SqRtjxZbt9CBCu VJT1iEV5fU0rETOmYCkv x3G6zQI8Q1GpkzNn ci1 (more content not included)... [facility] Provider Orderson 12-29-2023 Provider Orders [id number] [facility] Progress Note - Nurseon 12-15 Progress Note - Nurse Pt arrives to [facility] accompanied by her boyfriend. Pt has had no problems with catheter since we last saw her. Pt tolerates cath exchange today well (see BRIT), and was discharged to home with boyfriend. [Electronically Signed on: 12/28/2023 11:37 EDT] eGorge Atwood RN [Verified on: 12/28/2023 11:37 EDT] George Atwood RN [facility] Coding Summaryon 12-01-2023 Coding Summary HTMLBase 64 WiynsemnHVe9eMk+PGhl YWQ+YY7IBQGmW37zmAVq uG0lY5QWSOcQWmjiTQLI TPyKCiEjvjBmIN5nwQRo ZXJu IC8+DM3eUOHxKfhhvCUx x2I3pLD3F92zcy6zREcy aGO2XHDpRsLjsnozp5yc yPc6BLaxSjvpQuXe ASUiwV22QHL9bF66Bb82 kARetQQzn7agjZm5JeQf VRQqUVH7mKwbOSfud7Qw VKAyP10svCNhn1D7 IGNvbGxhcHNlOyBlbXB0 aC4tWFtkhepqc0zkgmje Kfx3hs59gRAqd9X2cOV8 O2DphwX7JTEtaYSi QcgzbLUBlX2hfkzqu0al erdfJwGcDAOlROk4GHy1 WMYzzHpyBkEkYH74NVQ6 VCCwnzIaK5BkQHCo oSuoVfK9x8J1Px7QY8EP BsxqW4YJPMXBCQowrAL+ ZJ66lu69J0OeWplgPyc5 COQxVHQ4hFO1hR7o IUEjDMilb7M7nDC2Z8Sg flVoro6gh2atQEQhCBot Q69eqORcn5N4UCFllXA5 WXEyvUjhUrSslA69 Oyc+BMAeeUyxq1CmYvoc j5vgs9sokCy8EicmBDSe ivFuuKhaQGV6x1XaQf5y VLJguXQ1hSP7fE8v HbIzItW2JTmkT896VjJg mXJkBvnrD66mX0ItuUX+ ULEtRut3DTDnfZrbXC4f X7WrMQHcjxnrvASc cAdxWU8hIJZvcqveJRZy yE4vHUDyQ9j2SkAuWuQ3 MFbwO3RhELXgbmtfBp37 bC9aRnXaGuC1BRhs Z2VdafQ9MNYemIZmQQmb TXS0G31yd0W8QPLrFYLw JWM7zUN5pF0yoMjoimtu bGVmdDsgdmVydGlj AMktXIdiU163CNGfhUak PkNvZGluZyBEYXRlOiAg MDIvMTUvMjAyNDwvdGQ+ WQObMOG7zMrbEJQc jUWvPNkxWb4qzLmciSin VX0fEPZorzpwMRTouD5o DFRwpUDkwDvkEP0mUGMs ubvci851SjAjBPM3 MQXnoBLlN9FwkI9fZkFh PLHkCHMuR4FnmZJiUHxf A609ZEnkYtF8HIVjuqCt X6NiDHThoBiiApD2 r5W2Jz1Am8IoinkdS8Qp jLFgXePcVtzhXOh7C7Va PjwvdHI+LV32NLFsTO56 QMt0FDY4cDwfDCtt HWSpP6QusG5kImEpLGUh ZGRkOyc+PHRhYmxlIHdp ZHRoPScxMDAlJyBzdHls NY2jXv8dZLFgHZVn oYrqvPUtRjBox0mfIQMw DXoePU1yzMhnC7OtrSD5 TYMdp9t0Rt86F32sV5Lv dXA+ZKWjiWK6kQM4 eE5hWcZhZbK4ERbiF772 YbIkiMDxVliud4oil4bd cFa1ClO5BCJwhjXurBoq OGS8n3LzPx52H54z IHdpZHRoPSIxNSUiIHZh nRvdwd5ciR3mEl3+PGNv sMH8lBH3eJ2tZbXvBuU2 JQkjQ277XmVubPEe Usulq5iwj0ymgDm3JePm QNAffoIaqFtjHEA7b5Dj Vw54P6KfbMoqa4YtLqe7 yc98pYWmt4C5aHJ3 V6UpHLWvwefcdCUauDvh AQ2iLKHsdbecLYGehB7o TTVxH0r3EoOvEvD3QFtt D2CrwbG2ZQAlfNNh FRWdiTAOnV0hrpril0xr awqqPnLnQFQnDHr9VQk8 VARumWydCrNkVQO1HjZ4 UTJ1nBTzwC2huZzk ueoufP9yOpp+LWP4qXPe gQTTYZ8lDgeanRY+PHRk IYK6oUtzRQebCDEzdQ1a QJAxO0v3UtDnXfL5 UBvbF8VyazU6KMAroYBv XJWyiDRYwM2coerox9hp xhesOsSrLTWuAVw7HOm7 LWFsaWduOiBsZWZ0 NkM9UVP4wKAglY9hqVnt duweuD8yBqy+QmlydGgg BUZ0WBq8L9HuZof1YAUm fTdqFE2muHRzDQsf St9ksYlbsRxqXQ5kOJUd hitfv313XmEgg3ywGUEl mUIrFPohSSJ5I20sx9U2 JAOqRMTgBMH1lKR4 dL6bbRpourdplVJuyMyd ywVfgKzzKMhePTuuO389 KSQjqVhhNxZfSBh9T3Wv Adi6SBEjmZhvQR1z xWWeMLwtDp9skUtinMbo CU2qSEAhlytbg205NvJw l1qdXGRdlXAvALfhSWS0 W13rz8O2UCScEHNa ONC8nSV8lH1fyVzvqjej bGVmdDsgdmVydGljYWwt UEgxA218MZOhcEefGmXc dMx2T2ZdHif9BLEq nAsvCM3sbOVzQJqjVx3b xHccdWrkZY9fPETgzfld o565SqJpv2adFMFwqSZi WNkuBNX4N72wl2F3 HZHeVIYqKDA0mMB3hW9y bGlnbjogbGVmdDsgdmVy lUobGOmtDHjtE060LRMr cDsnPlBhdGllbnQg VWuvHNc7H5GuRxeqvFP+ JH29KRAhAC93jFGmjWLl c1xwvEb0XoPuWHAzDVG4 lMcvVFafl5LfCGTm I57xmBJmv5F5YZKuxDsf bDOfVzDpuPO6tI5aGOzr mxxbp0kpxeilQztte1ef lz03dD11X35mZMds ZHRoPSIzMCUiIHZhbGln ss0pbX2dVw8+PGNvbCB3 eSW5hR5yLNRgVfN1WYad I935EmFezTTeOars n8mie2wdnIy6TuD5VQHo oePlwAepWTS1g8QbOq85 M67xWFpxKIXiWLJcIMGh CSKlpVlmvw8jfX5x Ii8+HNGdcPO4dIT0oX8i UoCeOeD7IZcdU158IxTv vVBfOebvO60wD5WkcNS+ XOIsIon9AGIiyVts QM2hcLImBOtgHd7oNIC8 RgHnHnMjRUvtX5ThXXGt zidrynffgXZ5KAJqLUMq xZ41Ag1gbBpvCGSq lOCXqH6uvgyap7gzrxap AlBjUYFwAAd7IQa7FSEi sNvhWnElFTI0BiN8IFG2 lTLhdT4srAdcjqjc qV4dF0GxOFJezwxdWe95 rL7kHyYoYhE7RCvnCnn+ UkFUTElGRiwgREFXTiBN QVJJRTwvdGQ+PHRk CCN8gWshJNenZPZvqX2q YZZrD4s8TtWjTcB1VVxe B8RdXAXqcmoqXt70xP7h EbOgTsV9GRmhG6Xa ylK9OLGnpRApDPwsKCF6 M20rz2L1YMKfAKWaLKY4 gXQ5yY5mnQikbovnbEXa dDsgdmVydGljYWwt AGtvU689LTVgeGsgWiCv WaKbWpL6TEd7D9ErVnv6 LXVozWqbXK6sxFLpSRfp Ly4yxEnxlYepOJ2m YPTqklhyAZKkyZ1sOCDs vPSouDqkIF0jUURrbhtk k629AeHiCLZ6MXOceRGd Q5EojD9zQiZuWOAm PNCbF1PyzBLnRHgnL650 ASlqLjF4ELPsmxZxX8Vk POVksBfdLfP3v0P1Vc2p NiBZZWFyczwvdGQ+ BFUtHKU9nSygWBpxNKKt tV2wEUHhW1z1FwPnSdL0 OYhuL8SmAPCfptuzHh87 mU1kPvKgNyT8LZib J0YzamY0KLDfzYBwFRni DOR1M28wa8E6MHOhGJJm LIR6qLC0tN6ahFjiruod bGVmdDsgdmVydGlj INnoYFptN842WGYzpDhw PkZFTUFMRTwvdGQ+PHRk SMX1rKtmFUlxQWXjjG2l ZBNlU3o1WxTlDlC1 TOfhA4ByYOVsiyvaZi24 wT6xDpQdCnG4FWbjK4Xu vzW8ZXFmbRElXKeaKVO1 H90fs6E8LZOzCFWg HLM8dWM5iR0hcNtvdxzc bGVmdDsgdmVydGljYWwt VBgeV534CKXqvZwuNeLr zAVTzYKzYQL1NQ94 NX56U9LlZmvzfUUewJI+ PHRhYmxlIHdpZHRoPScx SEHxHnJunWzeNN5hJh3t ZGVyLWNvbGxhcHNl FdTqv0nxFDQyDLwjHI4c qZssD5VzxYC6PCVhj5l5 Vv64U02lK8MonYW+PGNv sYE3qYQ8mG1nRmHz XqM2GDgyN642RmGueNMz Jefvw6zdl2ivyEp3BfCn YYMykpXlsHdbVRT8o7Fy Dn80T78iITjpJURn SJDpLYOoURXprYsvat8n kL1iKy5+PEGqxOU9fDI8 fS8lCkCqFsI6HNqyX149 JvTwkVIoVdglD40n L9UdnWV+BOAoYih4LFVc eJtvAI5xhLJvCYytLm0r CSG5AwCqReXpANpxT7Pp ZGRpbmctcmlnaHQ6 DRQbFUOslB47Bd0eyRsj Pr5sGZVqEOT5ICRxaIHy U7QbeX5cUyCxGZMuVLWb Y0TnvZLjNYdsU322 TDaeFmP6FIGhybLmW9Ai MFEeyXldUzY3c2Z2Jp4F pAljiCXoOG5fFrFqLBo3 G1TaWbn3LAOjgSqv MS2xjICiUOdmCf9dcYcu xTwcCE2lXZDdshenm210 AeJfm2hgXPTfpHZiKHpi XPB3H24qg9P7XRMb TRNcLLS4dZV4lR3fiSgd bjogbGVmdDsgdmVydGlj RYigKEdjG446HLAxxZaf QeUPGed1P7VeSbs1 GHXqsDzzLB1dzQOpIVad Hs9hqZkxwQltMP8gQCZi vdnvh203OlJbz4rxBBGe nVKgIMspHJO5T46t c9N3MUQsGSZyZMM6sSZ0 gH8eyKxvphacpFOnjIci lrEwzNeyRPnoKAosU021 SVOysNqnRs0JYxo8 B5KwJrv3XHHfhDwgKX9y qNUbVZniNj0lrPvkkWun AO2wGJSzszbwh097PeBe g2bgTRKpmBDbTYet GAV0U44rd1X1SLImYPJu ZWE5lCM1eR9gsMlaktay bGVmdDsgdmVydGljYWwt DKlaL027VYGehJrz PlBheWVyOjwvdGQ+PC90 ik41T2ZaDggqZip2DVUs RIJ0bMX9tH4vCZWmNDbu i8O8jUJ7C7BsugBs ci1 (more content not included)... [facility] Provider Orderson 12-01-2023 Provider Orders [id number]# 1.00OTGTIFF [facility] Coding Summaryon 11-03-2023 Coding Summary HTMLBase 64 WtrzdezePMf7iNu+PGhl YWQ+CP7PSQOeY97oyNXb iS9eN8MAPJiRMkjwOAIE ZLbQCyUavgIvMO6rvBEw ZXJu IC8+XL4mWRLdYaukbDGo t4I4sPN2K17jdp5dSVxg dEC9RDDoVhVankwlk3ii iJw5FFrxLeeqSkFd UTFkjT27LPU9eX01Al04 oCAufJRvl9gmwTw7UjYp LOXxZRX2pNyrDKehn4Hn WVDcM07exLSpi5B1 IGNvbGxhcHNlOyBlbXB0 jP0kWHxroyffn7prlans Pyw9fs47cWVgm6F8aWW0 O6VojqW4WXCxxYWe OsnzqRAIhC6jlygwp4ly vgewWwOkSUTaWGu4HFa9 NTWeuUbyQtJsDY97KQR1 ZMGyxaSoU7XbMZBh oLqqIzL7g6V8Jm5YX9BA XqpiY4FUBFZXEQmctTI+ DH72oa28A8JtEpxoGjb5 NEHlOKU6uET5lS6b DBRfNEluk1M2vOF0A6Xw qeVabl3pd0llJDQpTAjm M86lnJPso1Z7VLKiiZT6 BJKqlMmmBnAqkT61 Oyc+KTZmcOygh5UiJjcg g0ghl5mjtNa7RjmfCWCt ecDndTrlNEC9c4CeFj4v NNYuwWA2dUG8pB0m GmSmZbN3FGfmI989NiOk jPEdQkzeB11fX8FtbJB+ OORkKfm2GNCadXwxIO0v D7FeFWTendblmUUe mZrlFY8pQGLyypmcDQYc kR1nDRAjR6c7TwUfPkF3 MWanU3GoPUVpzoqvNw32 dO2jYnXaFoO8IFma H9DwelK5RIHdxWMzUGcj TGV0V83md3R0RZUyPMDo NZC9uHF7iB4wkOxgcppk bGVmdDsgdmVydGlj IOkfADtlC845EVVijJgu PkNvZGluZyBEYXRlOiAg MDEvMTgvMjAyNDwvdGQ+ IHAuNJR1xOqiRBCq xWYrZXjmZi5pcRpbzMbr KR6jOQYazwokGUPkkB0c OTLffVElqVeaIW8zCFXe jbzfp477WhMnTMO0 RAPqaJRfB7PwhZ1fVjSh HCYrZSZpK2ByuHPqWUuj T501GTetAqC6UDXegjHy I4SoSEXxvHjfXgK7 z2X9Bq8Tn3PtqkfkW9Fv xTQcPzYoJapxJJi6K1Kk PjwvdHI+TY59LVWoHF70 HOh2LON2mHwoNYkp EBEjB2MqiW6nHtFlCJOp ZGRkOyc+PHRhYmxlIHdp ZHRoPScxMDAlJyBzdHls UB9bZl5qFOGaUYFw oZynmSJuViIrc3ujGIYa GLquDY9vrNehL7IigFQ4 ORMqf7o2Kw49F52zV1Ob dXA+LQDauMT4hVW4 xA7nCfCjBoN3HXnkK624 RgJiqGBnDtwic0uxc0pr rMk8PfA0BDRuqzTdiNao BVC7o7WpLy47B60y IHdpZHRoPSIxNSUiIHZh iZmepo1efZ0uGl2+PGNv nVU0kSN7sX8vGkNkNnB1 YJzqK749KfNuoMKm Cnmbd9lsh1utjSb2JtNc CVGfijBgyUccSIZ6h7Ij Yz61P3CyeRtxk6TeNeh2 mt81fCBci7E8uOJ2 G3VoRDOrbvemvFZftQqw BU7hDDGlnvehIKTlpQ2f VZXrX6w5EmFiKkN8RHtq D6EqcbG9RSRxuHAs VLCeqBUFwJ9donemk1eb ubyvMpNbTQHpNTe0VMv7 RODscQymMxYbJDS5QoP8 QHQ9iQWidY9izBwa cntddQ6qKbo+RXI8zDKg eDMIHO7oKttesMG+PHRk RDA1aCodFLybQVUhpJ6p OXJsG9v2TvHvNxL6 OKiiQ2KmpcY5PRTveMZu YBIouCDLmE3wwrlnl5oz zmukWzHeVCMyLWi1MEf3 LWFsaWduOiBsZWZ0 SzU7MQR3xQJoeF1twYmm mfnpyM5yIlr+QmlydGgg STH8WJo7U3AyYcy2POMb iDtySE9etVLbWDpl Ox7psKqekZkmVN8dNRIw dyusm342SoGgy6jjXMNo iAJvQApyYOG4A74vp1L6 WFAkAKDlSCV3qWF6 tK7meDbvsrimnZJvdKhg zwNvhYavKOtaPPgoA500 DIGatUovOnHlANk2T6Kj Mkv2SDHufSqyRJ0i lFYjEXopNp0ssOgrhAim EM9hZJEdnprma087UkQi u4baYPUvzJBjREdvKAG8 W04pl7P0DNMfQNYq ORF2nUO4iL9thPayzrre bGVmdDsgdmVydGljYWwt LBetH709HSXgyAcrSuWy yNb6A9JfFkk1IGMo vShgAA7upYTwWKpyWk8j dRcatIcvZY8fJHHofllg u142YmUtn1hrQAJcwIHt UWxdQAQ1F99yi4E0 GJTjSBVsMBW3bUV2cS7z bGlnbjogbGVmdDsgdmVy kNakFQacSEvgW822MOHl cDsnPlBhdGllbnQg BCwmBBq6R5DtFxbpbIK+ DM71SEDdHR86mWWklNNc u3bgrBq3NbQzDNSxOYK0 tRniLRtrj2WoNPPh V47znJQqs2U7RSZbdUsc wLUmVxKhgDF4bA8dSIvg bltfl0bgwspdGxwcz6qv um87mI94E62mTIjj ZHRoPSIzMCUiIHZhbGln uq8ulB5wAx2+PGNvbCB3 vRS9tX6hOALeUwQ3GBor X646HfSiaQUaNnpt m0fgb1hezTc5HfK0FTDz ivZvhVfqNJQ5o6YsWu99 C92tBLflJLMxDPLtZZIl TBCfpJrtkm4soG7l Ii8+MDIszLZ1iAS0pK3w AqRgRxN3SMmpD750RcSl eDZtDbjvL02pQ3EdeFU+ ULCoHgm8MADkkVze IK9okFZaSMbhCz5bLHX1 UnHyWoGcRJmaC2VbTEXe dkcivgkvmHK0EOZmCRLv yM51Di4ezGvoZRHj mSMHgJ9unufze7aekato CbFnJDNqDYn5GEu8RXYr xUubHzHwFTJ0NyE6VPV7 uCNpaK8zfRrbwjhp eI7vF3RsPEQsygdrEx88 mJ7uMuVmQaA6UCtxZtm+ UkFUTElGRiwgREFXTiBN QVJJRTwvdGQ+PHRk XHC4aMorAIenKLRxtT4j NGRuN3i8LbDhFqA8NBgj O5MgYTPwmywmDb15tO2t ClYjTuU8DQmeJ1Tc abS8OBPkxPFuQPsoBTX4 C95ym1S8AKTbCOIyGQH8 fRF3yK7apIwxcovafNVl dDsgdmVydGljYWwt QFdoR614IJSrsWjrVwSy BoEqTyY7VHr3H2OrDtd2 VFVdxPcdST7fiFOeOLyl Tn1prKqyxPwmQD4u PJPrulgsTPOvyY4yBMJp tWTsbMdyAM7jUWVhocdh h574UgIwBUO5OSMbuWWf C2AvoF2hXqMwBIPd SPWiH9UovLPeLJmfB150 CUtlMdI9MNHmzvYkI9Jh CMJufPenFsP8s1N6Wa2j NiBZZWFyczwvdGQ+ XREhKGF6kGawOQbyBSQl uU7mWKEmI0e0FmGrMdM4 DKnfS6AoPSCfsrezFy66 hW2cAdZcRhZ3KEbk E0HhflQ0GTAqsMKxVZtv HOK5J23rp1R8ZFSvHBTy TXJ0eJM2oF9utRtzomut bGVmdDsgdmVydGlj BCrxFKbnZ347RIWqlPqh PkZFTUFMRTwvdGQ+PHRk EMS6oJqpXRomIFDobF2w GBJkD7j4YfJmZrR7 VYawC6VxFTLjnwylPq21 iZ6uCnYeNfQ3ZCgeK0Nt swX5MYVxnJJrZKkfSEE1 E05dg1I1GUKrCQGx PGL6rMI8rK8feXiwhabp bGVmdDsgdmVydGljYWwt YPucU377UWUawZofEbNu kGJUhHFsLGK7QG01 YL22O1CoJcznhJShuIR+ PHRhYmxlIHdpZHRoPScx CCJqJyReeJeuDV6zRs9i ZGVyLWNvbGxhcHNl VhYvq9saYMVhXDqeTV0u vKckI1DwlUO5QQKix5e0 Xw15A97sL2FrjPX+PGNv kLJ0hNJ6aX9zJlKv JaM6XLvkT297TkQvsOMk Mkbzu6rxe1vzkCm9HdWg YJOqvzZvzDtxSKG0b7Ic Mn70W07nQGbkLYRv DMAaAQDaRUPruAckkg4v uF3oAf8+CCMazBP8bOB6 hO4jWdKoOuY3SPwlQ125 UxKycXGwMqgbF01o T7IsnYG+VAKdHab5VTBu sDewMV0mmUVlGYaoDc1n KUK1UaRcAgPuPZyuT3Ca ZGRpbmctcmlnaHQ6 SSUwFEGpkF61Bt5kiOeg On6fEAMvDDN3WKMlvDXu Z8FcqU9gWbQfRQYvELXe U3QroIWjFLllM745 EIafPaS1XISfqmMxN6Ca WZEmqLhgReX0w1V0Bu6G hFxkxOYpPO0xWsKoEGv7 S2DkXbm1LFOmuGug MU2wrKPoCBtdZs4tfVtb dReiNA0mWNGkydrpo818 AcKqu7mvHHMknMUdAYhc ZZL9N23vd7Z7MASs CGRrBNF6dDY6wO3jpNsk bjogbGVmdDsgdmVydGlj ZUorHUhgF067ZLAncUwj QoIGYdm4N3KkGjn2 CKLonIzsAZ8znVJbHZds Ah8leRjddXmuEK9vVOYf nivrw581JeSqk4ehJIQt cZQsQKcrYRB5W07b a0R8XJQmUCNzTEU9aYS5 kZ9bdUeabuhrxXJraGol khQnuObnZGyqOTzrW275 SKPdzWaaMu7EXkh5 C3ZmPdg2XLKqpPfyGI7p xDUjUDbiHs6urCicmKoc ID0cUUCrnkfzc900LhRz p0ydBZUepJEzTYjp OGP1D83yj6W2ECZtQGIi LOO6qBG8nL0nbLiqvidp bGVmdDsgdmVydGljYWwt CYmhS704JPPpbRfe PlBheWVyOjwvdGQ+PC90 pl42C1ZiOgbdFyt6LJCn GBW4zHZ8vJ7fRRBqCUma i2C3tVL7F4HsevGo ci1 (more content not included)... [facility] Provider Orderson 11-03-2023 Provider Orders [id number]# 1.00OTGTIFF [facility] Progress Note - Nurseon 10-17 Progress Note [...] on: 11/02/2023 12:31 EST] Leora Malone RN [Verified on: 11/02/2023 12:31 EST] Leora Malone RN [facility] Coding Summaryon 10-06-2023 Coding Summary HTMLBase 64 PbyupweiZLu8iUz+PGhl YWQ+GP7DECRmN35edZCi iP7vV0HBHYyJHmxzKOWS RWyWRoHrnkZbOP4bvICf ZXJu IC8+MA6wCDVzJrdceDBe h6C8jIY6N80vop0cZWfq jVD6EUWuKyUujhfdz8vj uPz7FCuuBhrdIfFu ARKcaV11WZD7zS63Hn11 vAZkxJPfz2sgaSf2BkQr QSOqINB5pHhmCXqev3Qe CEAqW88flHMro0A9 IGNvbGxhcHNlOyBlbXB0 tE7iFQosepnyd7ugvzes Sts1hm62xVXck7T0zJM2 T3VsaoC5UDOazTYb NrrkqGMNvT5pmpxwi5km ohvjBsFrRRAtIXf5EVn0 YQFsuLjjNrMmTO45FNW0 UNMjplWjG9EyJEEh kFviWdE0f6K5Xp5TF9KH YosyU2OVDXCMTZymiIM+ LV39ci11Y3QeEjosIgd8 GAGiLWY9qEY2vT5w EFTcULabe8X4eCV7O1Qe juNhel1gs1prIUCvSHes A02gnJNqu7O0CYAvlLL5 UQLcoInyRlTshN86 Oyc+SNXrlMkdx1IzKreb v7bnh5yrjRd6RjdyHEYf mvDooSndMQE3r6VmMu5l DSNyvMJ7vJD8pR3s AeVeCkH7CYxrA761UwHf xBCkJydhD23mB4ZtzGV+ VUFdAuu2CJQbzYdcPI2q Z4BrXLGzcbvwtDSv bTjwLH3fNGUulyjcEOJy qM9vMRNsY2b5QbMqFkV7 EQybM3LcZDVmnesyBc11 xF0kOmJjUjU2BYxo P7PzxiO7VPEcgREdYDdx LRA7E30zm5D6KLKdEIJc YHM7vGW4xF2nnSrbpfdc bGVmdDsgdmVydGlj TRifIUafM378XXUgiIyj PkNvZGluZyBEYXRlOiAg MTIvMjEvMjAyMzwvdGQ+ BLSnSGU8hUmsGYHg jFSwIJvaUr6czDnyoDpz RZ8cVUVmvefiMIEeaW5l NXPnvAVwdMsmVJ7xTRDc vwnki526HyLcNUG7 NDMxcKReS9SkjZ5nHwWe YZNuYFUjL0JyvFGoDVky H784TYzsAoB0OROyoxQo X4DhMUOvrJbmTuV4 p7A5Ro3To2QvznesE4Ut wJHmFfEbUpnyEDk1O2Ii PjwvdHI+EX92UGOpVS89 IJo8DRV5dNywPEea SQLeK7GzjW5nVkEjVYBc ZGRkOyc+PHRhYmxlIHdp ZHRoPScxMDAlJyBzdHls DU2tZk5lDJCmBZIb bJpmsNSnZvRta0szRRLo HOdcBQ9ymHorJ6QwaGB7 TAUff9k3Hu18H49uU8Ep dXA+CJHaoUD5uUA5 pC7nPpRgLqQ6RKsuT074 BpGwfXArTpwnw7xtn2rm hCk2FlN5JTMrbwLdhFeo AHJ0y1ToHg80Z33a IHdpZHRoPSIxNSUiIHZh rImult1hdC4oLv5+PGNv sUV2pYP1wH2uGmHtLeT0 JGcoT405NdHcgHXw Tdcwz3qii5wmsXj0WrYv CMIykvCymPbvGDP7e0Xu Km51X6AgaOubi5GmItd2 bt62sGTru6N8fBM5 L1FqTUAmqnvjiVUcdQap TF0dQDIfuivjUMMufA3k BDEwH0j6DwRhJsX8SDtv Z0CqhtM6RVKbqROg TCPvvOGNmW0uoaojp7zn adgxNsIiPVAnENy3VIa7 WNAbbWzvXrNvQVU5KxL4 GKQ9rOAdrM8ghLik pzrdsJ4qQlh+XPD3nBBq xTLMNO9cZrzoqDM+PHRk NYG4jJpzQGinYNLehN4h MROsX4r9MkLzMsI0 TJbpI4PvadA1BVKukRJp JGEciIVApK8zqemzf2ja gckiTtErASFgIPr0KPa4 LWFsaWduOiBsZWZ0 UdG5SFC9tHPrqZ5ojDfn facqbC3eAhl+QmlydGgg YFU1ITp7O3LoEnb4FOWc aTekED2yoTSxUAvq As5msAakvQxiQV4wELBf mcndh011QsQpu4vhPWQb oJBvDSzkDUY8K25to3Z1 FPZtLWXgECE0lAD1 lT1fkOborggpcSLpwHti rxYjfQcgSRksEOgsJ995 APMlgBaoCpQjZZu5K7Ih Skv7WEWokJcwTZ5h nSRhNJicMy3fzScweQmo FF6eMADkxdima971ZlSw m3zcVQAmcWJvVYzcOVF7 N20ez9I7LZUtHAHo BAW5sCW6vW4yyQuomcbz bGVmdDsgdmVydGljYWwt YHzsL887LGNlsLceLpOw gKv2G8YpZur9MILw aQgpNU8zgBNyGLqiVm2u qGaroRziUQ4nXDDinual g456FoHco4ntNNAfzYHj VIivPWH8L38wm8Q7 DQOfCHPgMMM7xDK4qN4g bGlnbjogbGVmdDsgdmVy cSaeMJxvSSikT932FRRa cDsnPlBhdGllbnQg FLtjMMr4J5PdHokxrJA+ WD13WYOwGQ79qVQsnEDa k0hrrPn2IzLuDDRjRZW0 uZewZDxut9ZiRFVr O84dxUYgp7D9KJGqaWhl bRSsXnTctOW1wY5bSAiq zldmz6cozwdiCrgrp2vl tb04tY58C98nXYra ZHRoPSIzMCUiIHZhbGln pq4wkW9qRg2+PGNvbCB3 aKL7jU8wFGMmYeJ7NMzc R695CbItfJOgPpgm x9mgp3egyEv9OjI1URRt dyZxfRajEXC8v7AnNo32 L22mXWubNRMzJRKcWRCr ZSHhwJbrgy5nxI7w Ii8+JGYzyWB4wPX7xY6l PpCtGoP9SRmxZ825KmPc mIJtZxswX26uQ8MuaJA+ OAIyXqt2GGDtgEhn SI9dyBQqKGmyWt6gRVR8 UxHtTfZmUYjpJ1IhDISe ikwrmcbdmDJ8XQWeFGPr vG96Ja8ooWnaGWPr hSPDbH0fcukfk7ndqwyo AkDoVXYjARg6RZz9ZXKp zPthQfApVVM1YyI9AIK4 eVXleS6euUwqavgi oJ6nR3VlJTBskaxjCw17 oH9pQfLkBiO5WDfnNef+ UkFUTElGRiwgREFXTiBN QVJJRTwvdGQ+PHRk JAO2pOcwRPnaGLOdtE6n RQBqQ1k6LiDvFwC9OTyp X1DwPPLajrpcHj49lR0t JbCjUvV2ZLjiE7Ou uvF2RXWzvQDjJNnuZTO9 F57na6U3RRRsRIFdWLD8 sYS7qR8dxTqcjvfkeNVb dDsgdmVydGljYWwt JWuzM025NTUicTlcIaVc PsTgBlY5NDh2T1LqYuw2 FDErdNlgBZ5yjKNpNThr Ro1vlIwotYflEH9x MPVuvmkgRZDupD1dMTYe nDLggGmdXG4xUSHavpnc j037BxJyQTH8XBFpePWm E1YwgJ8rGwWmLAXr CBBpV1XcqCOsOKqcE981 GBrrTsN6ZSQbyhLcA5Yl PBMazSygTfZ2h4G2Rg7n NiBZZWFyczwvdGQ+ ANRdSPJ3jOuzLXceMYMn jT4wUEGrF6p9JuJoZeS7 XCuiY8TdCTKaabkcIw91 bH3fDvZoXhX0NXie R2LzusA9WANabCQrMKqi XHX1E82yf8E6NGDaDXRz WNX4xCD5rH0slVtuhcqb bGVmdDsgdmVydGlj JNjgNSmdV572CEMfgOqh PkZFTUFMRTwvdGQ+PHRk BWF7aOhbPTzfLFFrdY4m WCQvF4p3TnPyMyX5 KUbjX8DbWIVoqmpeUi20 vS8aVrNoCpT3VRorD6Wq lsK2XFVlfCYbWKrwHML4 S78zc0K3YSRsBJVe IAP6iEZ5uB0bsWtxukly bGVmdDsgdmVydGljYWwt WXraO200MJZazZupVmHe jATTmAYtNEK7MC13 JN51X9CnZatbsGQykHO+ PHRhYmxlIHdpZHRoPScx PJKqWtYthGamUH7mWr0h ZGVyLWNvbGxhcHNl NmSee9cuIAAcKLyyAA4l jEufW1VyaRS4XJEeq3z6 Mu39N06iT3UdzJL+PGNv aTL2pPD7pO5iRlDf BpM8AXgkH673BsSwzOBi Olwpz5czf8rnzZu5GmEj RUTmcgHgnOdcCIM7s2Ql Dh99O40yXYgpRCSe WUNeITAfOWIgiQmkrg1p yK1yGb8+MHRwhIU3pXM7 dN9jRoXpYkX9TAmcR289 SoUicHEuRymdS56j V3GiwWN+IDAfDww3CCIx vOsnNZ5voGYvVAyqEu0v URT4LjSyAyRoWRsnP0Sq ZGRpbmctcmlnaHQ6 AQLsBYHzkX49Rd2ziLni Sh3aLIZkQLV8IULzpZEn D0SgnN6wRlLlOFCtSGMf N4MvuRQoDRgsB859 FUjpJeK8DATktxMaL9Sy TBLlmEdtBhG4f9P8Py3S kGcrlALtMQ8qFlXvAKu8 L5YrGfy4ORLngSea KT6eaOCdUSweAu2gdOzb dNlcFO9dSMYbcwpuj060 HiOfy4hjEZNvsXMpOOoz LHQ6S28bx3R7FOBx OQFgBXH8fKQ9dO4lcDym bjogbGVmdDsgdmVydGlj EHigNIrwN656DLAwkMey NxUCAkr2I8OePcv6 QIQijHacWX4pzJQmVYmm Lc2kcEcrwJvzWP5wEKRh gnmto418BkMbu9hwZOZu nTPxOSnjOZF3E86c l6C5CYLeXPPoCVH6wSK3 mN0hmLrklmbcyDZnaXzo etIscDxcUQguBNfgW621 ZEDcwAtuZm0JFfz1 Z4ImNkf9RWGquBpoJV2r pIBtJRgeIc4gfQyuqOjr YT2nNGVxqppvs517NfSs u7htXALgcSXgOXsh ONK9B11xm3F6IUAyAMBx EVP5rKY5jI4eqWdvqzdu bGVmdDsgdmVydGljYWwt QAunZ840BMSzxGfa PlBheWVyOjwvdGQ+PC90 os90H6HuJdahHvv8JWAt VGN2tBZ6oS2rQSVxHApv q1T2oKF2I6AibjXj ci1 (more content not included)... [facility] 10-06-2023 Provider Orders [id number] #1.00OTGTIFF [facility] Coding Summaryon 09-27-2023 Coding Summary HTMLBase 64 NdzkfwgaFYy3gGu+PGhl YWQ+AX6WFYUoQ85phGDy lR5bQ2OBVJqPFohlZJQN LEnILrIqnrIvPC4lwVUv ZXJu IC8+YS5pXIYpKkqutBFr h9K6yYI1N42pdd7oUVaj aCP8NJNpOkNphhphd4js dWu0GCfhSyfwKhDs UNJonE65SVV9yG52Yk91 sWFzlJUde4npfAp7NfLp TGQqNGC3jClqVCdin9Fa ZGUaZ07agFFpk1Q7 IGNvbGxhcHNlOyBlbXB0 kJ3oVFragunqg7ffyzfr Cwr9om28zHYtk0V4eND7 Z0OdnbB8QPDytREf TigseIRUnG8vyfjvl5xj dnuaRmVoDSNnZOx4PVw8 SNAojCxiUnSrJK78PIR3 FFGvxpDzR9CuWRXh tWglVdL0d7B3Pq4KQ5UR UwxpL8DGIOXIUQgmyOU+ TN11py96U5FzSgnxBma9 UVBsBMY5pZZ1dZ0m FDOmQSuym9X3eCS1Z4Cr maXbhs7xw2hbYWZkERxa A40ilOYay9Z7HUWskEH8 GGXsuOrmDxPtzG92 Oyc+NCYtaChbr1GdLufq z6wet6bljSa4XsnvTIOv ozCniEdjWCX2o8ObXw6f IBMvjJK8mJN2tJ4x LnZiDiR6PQhfK908ZgSv vDLyOrqoO36nR2DocYW+ GOHuXyg9EGUafQpsRW8k J6IrURYaoqqplCNm sBeeES0nLYCoqkfsOTQq wJ1xQQLpJ2i5WdBeYeB5 CIesG8KzIJKrorwwXx45 hF8pWeHiGqO2EYru I3JxfqW5MRLnvILmHQik CVS4O95bp3H6CMYqZGHy ZWC6cKC1dI3xqCypbagh bGVmdDsgdmVydGlj UMbvLHasD019HNEbeFnv PkNvZGluZyBEYXRlOiAg MTIvMTIvMjAyMzwvdGQ+ TBJqFYJ7lZmzNWTu tBRkOTioMq6ycUwluNmx IK2zSCDtxrfeCKHrmZ2v JKBwdNOnuFuqPM7mEJIn rnfpf303DeWlDHS7 WECnuOHaX3LktJ5pIwLo KSXvCQQbV5DvpZZfUFcn K575TGosFrV0NFCzmnRm W8KoDRHkvKjpIrB4 g6Q4Cj5Wi2YxfawbY9Ph kMBqPiIgJpqvCMb3T3Rb PjwvdHI+FY66HFNsDA02 KLg8WYL2iYmiSSac QXFbJ2WdzM8gJjEiOEDx ZGRkOyc+PHRhYmxlIHdp ZHRoPScxMDAlJyBzdHls AS9pZe3lPKYqBZGv dOpfrJBaCkPtc9kyLMCz KCgrPC1xtBepL5JnuDJ2 MCCli9y3Mz83D31lO8Wg dXA+FBVksMD6nEA8 eX8yOiZnTbA2ASrwX818 KdLixALbEixpu2fyv6ic gGs0FmB8KHAqeoMymHec UYP4a5VjIq94Y59i IHdpZHRoPSIxNSUiIHZh zYhglp7kuI4lAs0+PGNv mVF4jRW0rM1zWkByUmC7 LHesY948ZdXmvWMm Zvehb2asp4ywoOj3CiDc TOKgijVhaTdmUZX3e1Dp Di87F7QojXxfm4LyQwk4 up15rXWml9T6xNJ2 T6KyKNFxiehqgOGceYkp SR9xWWGxrofoRHQykC2o WQYlQ5z1VzQdQoF3JFuj O0BxrqD2LROxnMAb NLUjcGNYsA9qdqeko0lh anrvXeOkJPViJPj6PDs7 XZAecEeoCzQaXIF4IfV5 MXU8sPBjfA2rtBun aefjcA3bQja+PFY6xTVj nNXYVX7hKqvvhZU+PHRk UHB0yMzgNClpXPUxzJ5k JGEzX2h5FyFsClE9 VYtfT6RcguC7IXPfxTHz JPKvlSLDcY1djgnpd0vd ptdgFgMkKYDePHo5GXn8 LWFsaWduOiBsZWZ0 CdE8HBB3eCDbxQ2lmDil dzronZ1dIpg+QmlydGgg ELR1WEd3B2WwLuv9TEEe bXymKI6qzVKfCDze Qf2kpTqlrCzjVA4sGUFm didyn450YlWip2fbJVOc dFMvQRcdLZV1Y21sd0H6 DZVeASKdPUD6wIY3 eK5gkRzekkealFKzcYlz gpSghEspBKknQMsjI736 XOEgmUcmNkPhARc4O2Pg Uxf9ODFycStrII2o wVMbTMhcZt0cpMhtuBlc IY3xZUYtonjal868IzLm q4ohJNPiiOXzTKgwOIY7 T37ck5X6LZIwEGYx IUA7oNE5mN7usRokoubc bGVmdDsgdmVydGljYWwt GTleX854AFYuxQguVuDg rYk7K4NyZdk6MVGf vEwfLM1joMTbHSnxFc7a vEhnoSqmDT4aYFZtmenv m828DgQgt5cgLPPiyLCm AHuqZMI7B51bx9Q3 FMPyTARfXTD6bNI8jL1a bGlnbjogbGVmdDsgdmVy tSfbNQsqLEqfB432FKXu cDsnPlBhdGllbnQg ZEnzPGg7B9ZoVuukzPP+ DP63UKLbND21qYRlcQWu q3dkkJf0XqUfPGUxZTM1 sMdeLBlft5UsCFDc O94qxBWgx9N2KSFhvNrp jMKkNnWvwOP8kH1oVLmf axlny6kbotbdNnban0uw zi88oO84V42bCHrp ZHRoPSIzMCUiIHZhbGln mc4uxT4vQg4+PGNvbCB3 iRT4jN6pDOJkPlY4DFoi E718RuZuiDGcMqsq r6ngb2dqrGv9SfS9SIMi ieCplWcvZNQ3j1MtXt21 M33cBNhyFWZrSAQkOLKe SGCnrBconc3tiO2j Ii8+TZFwwXA9aQA9mW0b YnAsNpC7EAvvA317RfOx vLPvVzjcK90wR0HkkYU+ MALnSmc8WWSkcKpl YQ5ypDMpAMiyPr5fTNX3 ViMrBcWrCSgcC7KrNISg frqnodjbpBG8TPUlPWJn eA39Nl4nuNorVIBh qEEQfL3swdsqh2paosdj WcKfBFKrKBu8FAd2AEXy eRcyUwIxBQJ7XgH3VVL5 kFFvtM8bvPfogzsr wG9qN3PnCUUqrckfBp96 iH1eDcIcUiE3UZshRvd+ UkFUTElGRiwgREFXTiBN QVJJRTwvdGQ+PHRk YJD6xAbtPLsqUYPxyI0k TZVmN7w2DuGgGsA1XCzs V1ObXZBqosyfYi60gG7p WgPwOoX2YQyiH2Pe xaK0YALicYKkBTbmAFZ4 R19hh4O2LFKmVIZrJHU7 uRE9wJ9znMumrpwgpUFx dDsgdmVydGljYWwt IDooX848ZVCjsUwuPhTm GrOlLaQ8UIs4V8PdEfb1 CFUlzJgtOD9pmEFpGJhg Vo5toLdvxWwrSS5x BKGrnshpAKDpgL2yOXEc lKZdfHpoIG5iUYJyvhjd t577IjHuULQ6BPXjnPTn B2OkhB7sQeBgCLFt UQBtU4DitGUkOBwiK061 XPiwJtW0FMWclgUfC6Eo CQLjxRdlMsS4x4Q7Hp0s NiBZZWFyczwvdGQ+ YUSbELE3cNqkTPgwXYPj mF5oLONqV6i2ZrGrKvX2 AKxsK4BgSNYlngqbYu89 tW4rBbXeAcQ7EMpz U1McltC0ANNrgEVwFWjw FAS2B07pf4V6HZGjQURr WFW3fFG3lB5hcDvkcyno bGVmdDsgdmVydGlj MFdgDSgmB103GKZauWhl PkZFTUFMRTwvdGQ+PHRk KAZ9wAeaFWorIRJmlY9s QEFlI2b3CcDzYyN4 WTwwP7EoAFEfzksjNm12 iK9iXeQxMzN5AHdmD2Fu tyN1SAYajKEaKWqmPJG6 X89tb5T5BXTzAMKt NON9xRX7cI9znNbvvkdi bGVmdDsgdmVydGljYWwt YGprI313VCSirZztYvDh wUOEhQBjEAY9SV17 LI59E0AoVghjhLSgcWX+ PHRhYmxlIHdpZHRoPScx SOKlRvEcfYonAB5wUn8u ZGVyLWNvbGxhcHNl JlYde9olNKHcXRonYD8t sIhsM8YvuFN0ZYIgk1r5 Bi69X55xE5UdaIH+PGNv kAO4cTT9cV5mToSk YaT0VEogV775DaLbcBRx Wdlkw6cfv2vhyBc9LrCv OZSbqbDbxRnzQFG4k4Gk Ey87E78hAElqFPFn PFIiSAHyHTVkaFtkvn1k nI4wRn5+CIEhqFB7tMH1 cN1hVjHpSyS7LEdkN400 OkYpnCIpRkxwZ74s X1TdbNA+BCCoTld4MYOx hZxpMY5gyERrJGxjBt5l VGN9UnCnImXsZGziN2Jt ZGRpbmctcmlnaHQ6 JHEaOKTmtP23Yr7mcBbg Rc1iKOPwIUP7HWXtlVLh T4IctY1qCbWlRFKzWONs V0VzmKKaIQegX389 DMohZcV7JRItrwTsP4Ha MTQxpRudAdB0a2P7Vt0M hXtdnYHlCG3pAqRyHPt2 F5LhXfe5JCTynSxi ZT8dzDQhEVlcPt7wbVlp fWksCE2aJLOsvruvg614 MdEpg8niXFLiaGJmENlg AWT9A29xu6X4WTVz BZNnFKK1vUK0mS5jpTwv bjogbGVmdDsgdmVydGlj WRefEYueI727DTPzoVev IeIRHrq3A1NvZhz5 PYVjaJojUO6djKZcKQta Ei6diMydpCrrCE5jSXTg mrztl375TkZju9kzFPJn iPTbAYzoNAR8C90b z8B5WBMwQPCkILH4uIF9 rE5lrHokhidpoDPxyZey xkElxUwuPYgjGOdpB698 DHWrqIueWu4VJzm4 X6CuXlr5WOIglHgnAU9q fFJzPKnwAc3dsXifiAcl CA6cOVAwkoapl533YdMn j2wzQDYkhNFqHHkv ESV6U15ob7Y6DYSrKEYr YIC3hQX7dY7reFbkanmc bGVmdDsgdmVydGljYWwt HYszI920LNRjdOvn PlBheWVyOjwvdGQ+PC90 ta29R5IxGxhrAsj1ZSTa ITE0iYP6hD8kBXAmYYsp b7F4jND4B8PftpBs ci1 (more content not included)... [facility] 09-12-2023 Provider Orders [id number] [facility] Provider Orders [id number]#[facility]. [facility] - [facility] 08-18 Progress Note - Nurse Patient arrived via W/C for scheduled monthly catheter change. Pt arrived with significant other. Boateng exchanged without difficulty. Pt assisted to cart. Pt brought own supplies except for urinary drainage bag. See IV for further noting. [Electronically Signed on: 09/07/2023 08:56 EST] Savita Oro RN [Verified on: 09/07/2023 08:56 EST] Savita Oro RN Normal [facility] CBC AUTO DIFFon 09-02-2022 BASO # 0.1 103/ul Normal 0.0-0.1 [facility] Comment on above: Performed By: #### C BC #### [facility] [address] [place] [address] Dr. Karina Montero Basophils/100 WBC (Bld) 0.9 % Normal 0.2-2.0 [facility] Comment on above: Performed By: #### C BC #### [facility] [address] [place] [address] Dr. Karina Montero EO # 0.4 103/ul Normal 0.0-0.7 [facility] Comment on above: Performed By: #### C BC #### [facility] [address] [place] [address] Dr. Karina Montero Eosinophils/100 WBC (Bld) 6.2 % Normal 0.9-7.0 [facility] Comment on above: Performed By: #### C BC #### [facility] [address] [place] [address] Dr. Karina Montero Erythrocyte distribution width (RBC) [Ratio] 14.1 % Normal 11.0-15.0 [facility] Comment on above: Performed By: #### C BC #### [facility] [address] [place] [address] Dr. Karina Montero Hematocrit (Bld) [Volume fraction] 45.7 % Normal 36.0-48.0 [facility] Comment on above: Performed By: #### C BC #### [facility] [address] [place] [address] Dr. Karina Montero Hemoglobin (Bld) [Mass/Vol] 14.9 g/dL Normal 12.0-16.0 [facility] Comment on above: Performed By: #### C BC #### [facility] [address] [place] [address] Dr. Karina Montero IG # 0.01 10e3/ul Normal 0.00-0.03 [facility] Comment on above: Performed By: #### C BC #### [facility] [address] [place] [address] Dr. Karina Montero IG % 0.2 % Normal 0.0-0.5 [facility] Comment on above: Performed By: #### C BC #### [facility] [address] [place] [address] Dr. Karina Montero LYMPH # 2.9 103/ul Normal 1.2-3.8 [facility] Comment on above: Performed By: #### C BC #### [facility] [address] [place] [address] Dr. Karina Montero Lymphocytes/100 WBC (Bld) 44.7 % Normal 20.5-60.0 [facility] Comment on above: Performed By: #### C BC #### [facility] [address] [place] [address] Dr. Karina Montero MANUAL DIFF REQ NO Normal [facility] Comment on above: Performed By: #### C BC #### [facility] [address] [place] [address] Dr. Karina Montero MCH (RBC) [Entitic mass] 29.8 pg Normal 26.7-34.0 [facility] Comment on above: Performed By: #### C BC #### [facility] [address] [place] [address] Dr. Karina Montero MCHC (RBC) [Mass/Vol] 32.6 g/dL Normal 29.9-35.2 [facility] Comment on above: Performed By: #### C BC #### [facility] [address] [place] [address] Dr. Karina Montero MCV (RBC) [Entitic vol] 91.4 fL Normal 81.0-99.0 [facility] Comment on above: Performed By: #### C BC #### [facility] [address] [place] [address] Dr. Karina Montero MONO # 0.7 103/ul Normal 0.3-0.8 [facility] Comment on above: Performed By: #### C BC #### [facility] [address] [address] [address] Karina Montero Monocytes/100 WBC (Bld) 10.1 % Normal 1.7-12.0 [facility] Comment on above: Performed By: #### C BC #### [facility] [address] [address] [address] Karina Montero NEUT # 2.4 103/ul Normal 1.4-6.5 [facility] Comment on above: Performed By: #### C BC #### [facility] [address] [address] [address] Karina Montero Neutrophils/100 WBC (Bld) 37.9 % Critically low 43.0-75.0 [facility] Comment on above: Performed By: #### C BC #### [facility] [address] [address] [address] Karina Montero Platelet mean volume (Bld) [Entitic vol] 10.7 fL Normal 9.5-13.5 [facility] Comment on above: Performed By: #### C BC #### [facility] [address] [address] [address] Karina Montero PLT 222 103/ul Normal 150-450 [facility] Comment on above: Performed By: #### C BC #### [facility] [address] [address] [address] Karina Montero RBC 5.00 106/ul Normal 4.20-5.40 [facility] Comment on above: Performed By: #### C BC #### [facility] [address] [address] [address] Karina Montero WBC 6.4 103/ul Normal 4.0-11.0 [facility] Comment on above: Performed By: #### C BC #### [facility] [address] [address] [address] Karina Montero LIPID PROFILEon 09-02-2022 CHOL-HDL RATIO NORM SEE BELOW Normal [facility] Comment on above: Result Comment: 3.3 - 4.4 LOW RISK 4.4 - 7.1 AVERAGE RISK 7.1 - 11.0 MODERATE RISK >11.0 HIGH RISK Performed By: #### T SH, LIPID, CMP #### [facility] [address] [address] [address] Karina Montero Cholesterol [Mass/Vol] 217 mg/dL Critically high <=200 [facility] Comment on above: Performed By: #### T SH, LIPID, CMP #### [facility] [address] [address] [address] Karina Montero Cholesterol in HDL [Mass/Vol] 45 mg/dL Normal 40-60 [facility] Comment on above: Performed By: #### T EMILY, LIPID, CMP #### [facility] [address] [place] [address] Dr. Karina Montero Cholesterol in LDL [Mass/Vol] 153.4 mg/dL Normal [facility] Comment on above: Performed By: #### T EMILY, LIPID, CMP #### [facility] [address] [place] [address] Dr. Karina Montero Cholesterol.total/C holesterol in HDL [Mass ratio] 4.8 {ratio} Normal [facility] Comment on above: Performed By: #### T SH, LIPID, CMP #### [facility] [address] [place] [address] Dr. Karina Montero HDL NORMAL > or = 60 mg/dl - LOW CARDIOVASCULAR RISK <40 mg/dl - HIGH CARDIOVASCULAR RISK Normal [facility] Comment on above: Performed By: #### T SH, LIPID, CMP #### [facility] [address] [place] [address] Dr. Karina Montero LDL CALC NORMAL SEE BELOW Normal [facility] Comment on above: Result Comment: <100 mg/dl OPTIMAL 100 - 129 mg/dl NEAR OR ABOVE OPTIMAL 130 - 159 mg/dl BORDERLINE HIGH 160 - 189 mg/dl HIGH >190 mg/dl VERY HIGH Performed By: #### T SH, LIPID, CMP #### [facility] [address] [place] [address] Dr. Karina Montero Triglyceride [Mass/Vol] 93 mg/dL Normal <=150 [facility] Comment on above: Performed By: #### T SH, LIPID, CMP #### [facility] [address] [address] [address] Karina Montero VLDL CALC 18.6 mg/dL Normal [facility] Comment on above: Performed By: #### T SH, LIPID, CMP #### [facility] [address] [address] [address] Karina Montero PROF 14(COMP METB)on 022 Albumin [Mass/Vol] 3.2 g/dL Critically low 3.4-5.0 [facility] Comment on above: Performed By: #### T SH, LIPID, CMP #### [facility] [address] [place] [address] Dr. Karina Montero Albumin/Globulin [Mass ratio] 0.8 {ratio} Normal [facility] Comment on above: Performed By: #### T SH, LIPID, CMP #### [facility] [address] [place] [address] Dr. Karina Montero ALP [Catalytic activity/Vol] 83 U/L Normal 46-116 [facility] Comment on above: Performed By: #### T SH, LIPID, CMP #### [facility] [address] [place] [address] Dr. Karina Montero ALT [Catalytic activity/Vol] 8 U/L Critically low 14-59 [facility] Comment on above: Performed By: #### T SH, LIPID, CMP #### [facility] [address] [address] [address] Karina Montero Anion gap [Moles/Vol] 5.2 mmol/L Normal [facility] Comment on above: Performed By: #### T SH, LIPID, CMP #### [facility] [address] [place] [address] Dr. Karina Montero AST [Catalytic activity/Vol] 10 U/L Critically low 15-37 [facility] Comment on above: Performed By: #### T SH, LIPID, CMP #### [facility] [address] [place] [address] Dr. Karina Montero Bilirubin [Mass/Vol] 0.3 mg/dL Normal 0.2-1.0 [facility] Comment on above: Performed By: #### T SH, LIPID, CMP #### [facility] [address] [place] [address] Dr. Karina Montero Calcium [Mass/Vol] 8.7 mg/dL Normal 8.5-10.1 [facility] Comment on above: Performed By: #### T SH, LIPID, CMP #### [facility] [address] [address] [address] Karina Montero Chloride [Moles/Vol] 103 mmol/L Normal 98-107 [facility] Comment on above: Performed By: #### T SH, LIPID, CMP #### [facility] [address] [place] [address] Dr. Karina Montero CO2 [Moles/Vol] 31.6 mmol/L Normal 21.0-32.0 [facility] Comment on above: Performed By: #### T SH, LIPID, CMP #### [facility] [address] [place] [address] Dr. Karina Montero Creatinine [Mass/Vol] 0.41 mg/dL Critically low 0.55-1.02 [facility] Comment on above: Performed By: #### T EMILY, LIPID, CMP #### [facility] [address] [place] [address] Dr. Karina Montero EGFR-AF TAJIK >60 Normal >=60 [facility] Comment on above: Performed By: #### T SH, LIPID, CMP #### [facility] [address] [place] [address] Dr. Karina Montero EGFR-NON AF TAJIK >60 Normal >=60 [facility] Comment on above: Performed By: #### T SH, LIPID, CMP #### [facility] [address] [place] [address] Dr. Karina Montero Globulin (S) [Mass/Vol] 4.0 g/dL Normal [facility] Comment on above: Performed By: #### T SH, LIPID, CMP #### [facility] [address] [place] [address] Dr. Karina Montero Glucose [Mass/Vol] 86 mg/dL Normal 74-106 [facility] Comment on above: Performed By: #### T EMILY LIPID, CMP #### [facility] [address] [place] [address] Dr. Karina Montero Potassium [Moles/Vol] 3.8 mmol/L Normal 3.5-5.1 [facility] Comment on above: Performed By: #### T EMILY LIPID, CMP #### [facility] [address] [place] [address] Dr. Karina Montero Protein [Mass/Vol] 7.2 g/dL Normal 6.4-8.2 [facility] Comment on above: Performed By: #### T EMILY LIPID, CMP #### [facility] [address] [place] [address] Dr. Karina Montero Sodium [Moles/Vol] 136 mmol/L Normal 136-145 [facility] Comment on above: Performed By: #### T EMILY LIPID, CMP #### [facility] [address] [place] [address] Dr. Karina Montero Urea nitrogen [Mass/Vol] 11.0 mg/dL Normal 7.0-18.0 [facility] Comment on above: Performed By: #### T EMILY LIPID, CMP #### [facility] [address] [place] [address] Dr. Karina Montero Urea nitrogen/Creatinine [Mass ratio] 26.8 mg/mg Normal [facility] Comment on above: Performed By: #### T EMILY LIPID, CMP #### [facility] [address] [place] [address] Dr. Karina Montero TSHon 09-02-2022 TSH 1.071 uIU/mL Normal 0.358-3.740 [facility] Comment on above: Performed By: #### T EMILY LIPID, CMP #### [facility] [address] [place] [address] Dr. Karina Montero VITAMIN D 25 OHon 09-02-2022 VIT D 25-OH 28.4 ng/mL Normal [facility] Comment on above: Performed By: #### V ITAD #### [facility] [address] [place] [address] Dr. Karina Montero VIT D RANGES SEE BELOW Normal [facility] Comment on above: Result Comment: <20 ng/mL Vit D deficient 20 - <30 ng/mL Vit D insufficient 30 - 100 ng/mL Vit D sufficient >100 ng/mL Potential Toxicity Performed By: #### V ITAD #### [facility] [address] [place] [address] Dr. Karina Montero Telephone Encounteron 2021 [employer] Authentication Interface Message Text LM for her to call me for appt. Pt only considered New if 3 years have passed since last visit. Normal [facility] CULTURE URINEon 01-03-2022 CULTURE URINE Isolate [...] Trimethoprim/Sulfame thoxazole >=320 R F Normal [facility] Comment on above: Performed By: #### U RCX #### [facility] [address] [place] [address] Dr. Karina Montero UA (CLEAN/CATCH) [employer]CH[employer]IC APPRENTICE/MICRO I F IND.on 01-01-2022 Bilirubin Ql (U) Negative Normal NEGATIVE [facility] Comment on above: Performed By: #### U RENATO ADKINS #### [facility] [address] [place] [address] Dr. Karina Montero Clarity (U) CLEAR Normal CLEAR [facility] Comment on above: Performed By: #### U ACSCARLIN UMICRO #### [facility] [address] [place] [address] Dr. Karina Montero Color (U) LT. YELLOW Normal YELLOW [facility] Comment on above: Performed By: #### U ACSIND, UMICRO #### [facility] [address] [address] [address] Karina Montero Glucose Ql (U) Negative Normal NEGATIVE [facility] Comment on above: Performed By: #### U ACSIND, UMICRO #### [facility] [address] [address] [address] Karina Montero Hemoglobin Ql (U) TRACE-LYSED Abnormal NEGATIVE [facility] Comment on above: Performed By: #### U ACSIND, UMICRO #### [facility] [address] [address] [address] Karina Montero Ketones Ql (U) Negative Normal NEGATIVE [facility] Comment on above: Performed By: #### U ACSIND, UMICRO #### [facility] [address] [address] [address] Karina Montero LEUKOCYTES LARGE Abnormal NEGATIVE [facility] Comment on above: Performed By: #### U ACSIND, UMICRO #### [facility] [address] [address] [address] Karina Montero Nitrite Ql (U) Positive Abnormal NEGATIVE [facility] Comment on above: Performed By: #### U ACSIND, UMICRO #### [facility] [address] [address] [address] Karina Montero pH (U) 8.5 [pH] Normal 5-9 [facility] Comment on above: Performed By: #### U ACSIND, UMICRO #### [facility] [address] [address] [address] Karina Montero SPEC GRAVITY 1.015 Normal 1.005-<=1.[address] [facility] Comment on above: Performed By: #### U ACSIND, UMICRO #### [facility] [address] [address] [address] Karina Montero UA PROTEIN 100 mg/dl Abnormal NEGATIVE/ TRACE [facility] Comment on above: Performed By: #### U ACSIND, UMICRO #### [facility] [address] [place] [address] Dr. Karina Montero UR MICRO IND INDICATED Normal [facility] Comment on above: Performed By: #### U ACSCARLIN, UMICRO #### [facility] [address] [place] [address] Dr. Karina Montero Urobilinogen Qn (U) 1.0 {Peterson'U}/dL Normal 0.2 - 1. 0 [facility] Comment on above: Performed By: #### U ACSCARLIN, UMICRO #### [facility] [address] [place] [address] Dr. Karina Montero URINE MICROSCOPIC ONLYon BACTERIA LARGE Abnormal NONE SEEN [facility] Comment on above: Performed By: #### U ACSCARLIN, UMICRO #### [facility] [address] [place] [address] Dr. Karina Montero Bacteria identified Cx Nom (U) INDICATED Normal [facility] Comment on above: Performed By: #### U ACSCARLIN, UMICRO #### [facility] [address] [place] [address] Dr. Karina Montero CAST NONE SEEN Normal NONE SEEN [facility] Comment on above: Performed By: #### U ACSCARLIN, UMICRO #### [facility] [address] [place] [address] Dr. Karina Montero Crystals LM Nom (Urine sed) SEEN Abnormal NONE SEEN [facility] Comment on above: Performed By: #### U ACSCARLIN, UMICRO #### [facility] [address] [place] [address] Dr. Karina Montero Epithelial cells LM Ql (Urine sed) NONE SEEN Normal NONE SEEN /RARE [facility] Comment on above: Performed By: #### U ACSCARLIN, UMICRO #### [facility] [address] [place] [address] Dr. Karina Montero MUCOUS LARGE Abnormal NONE SEEN [facility] Comment on above: Performed By: #### U ACSCARLIN, UMICRO #### [facility] [address] [place] [address] Dr. Karina Montero RBC 5-10 Abnormal 0-2 [facility] Comment on above: Performed By: #### U ACSIND, UMICRO #### [facility] [address] [place], [place] [address] Dr. Karina Montero TRIPLE PHOS CRYSTALS MODERATE Normal [facility] Comment on above: Performed By: #### U ACSIND, UMICRO #### [facility] [address] [place], [place] [address] Dr. Karina Montero WBC 50-75 Abnormal NONE SEEN [facility] Comment on above: Performed By: #### U ACSIND, UMICRO #### [facility] [address] [place], [place] [address] Dr. Karina Montero Progress Noteson 12-28-2021 [employer]iconductor Wafers Tester Authentication Interface Message Text Ms Peralta's appointment was rescheduled to 12/28/21 -- However, [facility] received call late on Tuesday12/25/21 - that they were cancelling the surgery for Tuesday, as patient was discharged from facility, and will be home - unable to acquire transportation. - ----- Tuesday, December 28, 2021 at 8:07:43 AM ----- ----- Provider: Yisel Guevara Specialist -- Clinic: [place] ----- Normal [facility] PSE Call H AND Stephen [employer]ductor Wafers Tester Authentication Interface Message Text Patient was identified by name and date of by nursing staff at [facility]. Sophy Dong RN Preop and medication instructions given to staff. Pt is vaccinated x2 for covid and will not need covid testing prior to dental surgery . Normal [facility] Telephone Encounteron 2021 Semiconductor Wafers Tester Authentication Interface Message Text Pt does not need covid testing for surgery . Covid vaccine completed. 01/16/2021 and 03/03/2021 Normal [facility] Progress Noteson 11-03-2021 Semiconductor Wafers Tester Authentication Interface Message Text ----- Wednesday, November 03, 2021 at 10:51:21 AM ----- ----- Provider: Destiny Winn, -- Clinic: [place] ----- Due to the weather conditions the patient was unable to make the appointment at [place]. OR was cancelled. Normal [facility] Anesthesia Preprocedure Robbie zabala 10-31-2021 Semiconductor Wafers Tester Authentication Interface Message Text ASA: 3 PSE [...] abdominal abscess, and thus was sent to [facility] for [facility] evaluation. Patient presented with [...] EKG, imaging, and consults reviewed Normal [facility] Appt H AND Stephen [employer] Wafers Tester Authentication Interface Message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
[2024-05-04 12:43] VITALS: BP 126/88; PULSE 86; O2SAT 98
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
== END 2024-05-04 12:44 | disposition home or self-care (01) ==
PROVIDERS: Emergency Provider Emergency Medicine; PCP Internal Medicine
DX: Z46.6 Encounter for fitting and adjustment of urinary device (principal); F17.210 Nicotine dependence, cigarettes, uncomplicated
CPT/HCPCS: 99284

== ENCOUNTER 2024-07-04 15:28 | Outpatient (OUT) | payer OTHER, SELFPAY ==
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
--- OUTSIDE RECORDS SUMMARY | 2024-07-04 15:45 | XMS_ITS | CCD ---
Author Organization [facility] Care Team Providers Care Policyholder Information Clerk Name Role Phone PROVIDER, UNKNOWN Attending Unavailable [...] [place] Unavailable Vinh FAUSTIN, Nathalia Cano Unavailable Tirbaso SCREEN WRITER-FAMILY NURSE PRACTITIONER, Tracy Unavailable [phone] Herminio SCREEN WRITER-FAMILY NURSE PRACTITIONER, Evelian Unavailable [phone] SHARIFA ADAMS FINISHER OPERATOR-C Primary Care Physician Yun Hermosillo Unavailable Unavailable Maria De Jesus Denton I Unavailable Unavailable Sandeep LOPEZ Attending Unavailable Rach Ledbetter Attending Unavailable MENDOZA GIPSON Attending Unavailab SHARIFA Davison FINISHER OPERATOR-C Referring Unavailable Singh Morse MD Unavailable Singh Morse MD Primary Care Provider SHARIFA [...] Drug Allergy 07-02-20 15 Itching, Rash [facility] Repository (5 sources) Ciprofloxacin; Translations: [CIPROFLOXACIN] Drug Allergy 07-11-20 15 Hallucinations , Eruption of skin (disorder), Unknown, Rash [facility] Repository (5 sources) Ondansetron; Translations: [ONDANSETRON] Drug Allergy 04-06-20 16 Headache, Other, Unknown [facility] Repository (2 sources) Ciprofloxacin; Translations: [Cipro] Drug Allergy 12-27-19 17 [facility] Repository (2 sources) Ondansetron; Translations: [Zofran] Drug Allergy 12-27-19 17 [facility] Repository (4 sources) Cephalexin; Translations: [cephalexin] Drug Allergy 09-26-20 23 Rash, Unknown [facility] (1 source) Sulfamethoxazole / Trimethoprim Drug Allergy 03-24-20 23 Diarrhea [facility] Medications Current Medications Medication Drug Class(es) Dates Sig (Normalized) Sig (Original) acetaminophen 325 mg oral tablet (1 source) Start: 01-29-2021 take 2 tablets by mouth every six hours as needed acetaminophen (TYLENOL) 325 mg tablet Take 2 Tablets by mouth every 6 hours as needed. 30 Tablet 0 01/29/2021 Active [id number] 200 actuat albuterol 0.09 mg/actuat metered dose [...] nasal liquid Indications: Opioid Overdose Instill 1 [place] into one nostril (alternate sides) as needed [...] 04-27-2016 Chronic Other aftercare (4 sources) Other superintendent terminal (current) drug therapy; Translations: [OTH VIDEO PRODUCER CURRENT DRUG THERAPY] Onset: 2 Episodic Other COMPUTER FORENSICS ANALYST infection and 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 (1 source) Spinal epidural [...] Coding Summaryon 04-03-2024 Coding Summary HTMLBase 64 SynthocwNXm3eZz+PGhl YWQ+GJ0LLFAlX05hvUUi kM6zE0NHMOpWFxjsWVDZ KUbTEeJhqxVzMC0aaZYi ZXJu IC8+RB0qUKQqFrelpHAs i4D0fGT5R03tms2qGCbc mOR4NAJfZcXkzmmki3up lPs7HGimZlggBjAn VDQknQ94SQI2zB81Vc08 xLEeuLAuu3kzaAf7ItCc DJSvAYV7xGxjWVdgs4Ou RXVzE64kuNFir5A4 IGNvbGxhcHNlOyBlbXB0 lT5cROzcvseez8gzynvj Zih0fl55aFDmc2V7iCX2 Q4JczmB8XYZpuEEz PqiuzXQJkF3bvuita9gi uhbgOjFmPFZlDSn5MTu7 ASEdcKkzWvRpRE61WYE7 SMSahwPjR6VeTCLr yTzkWwW5a3U3Ro4WO6OZ MmdrD8ZDAMUVAFlwqMN+ WD44dd29L3XyGzkcXkt1 JUXqANT7aXR1mK2i ESCrHBekx7M1iPS3P1Wn tmAeou3gl8glUNZwXUkn F47cvWZkh4Y3AOPhdIT2 BIMjuBdyFyMgkO24 Oyc+JQGufJtjq8IdEzfx w6tmt2aecFr8FftvCXGm yuEepVifHDG0b5YqWg0m DHJvtEZ4aIK9tN2a JtOxGbD9MXdzS986SoMq pUXxEwcuQ22zX3DxjRY+ QWQzWdn9GDYtqYbfFA8f E0RuNGMmltyroHAi iPwsEU0iDPAmodsgYYNn eU2kZVWaF4p9TkJbAwP3 ATtsX4SmTJTbdhpvEv50 sI0cHbQlRxZ8ITkd V8GqihK2BJPmnOIfCHyk GUF8W77zw4F3FGZvZXKl KUY5fGG1hI3bdVaotkec bGVmdDsgdmVydGlj VVahQRtwP950NJJbpLnq PkNvZGluZyBEYXRlOiAg MDYvMTgvMjAyNDwvdGQ+ BIOfGNB7pNobXFXx oTNmOUapAj0dpTjkrLom NI1kWPHfcmubYBLzzD1r LPJtiWRcqDpmGO6zYHHs xfrei637XbErXFN9 XOXfhTKqG9LeiW9mDuNc TZZkHJBoK3BzcDEzLGcz K081EZyjVjN8YLJhgkOw O8FxPCQnoKwePfS6 p4W7Nj8Un1SykkyvE6Ep eKCoSqZkLameKQs9Z3Ix PjwvdHI+HO94JSMqXQ85 PFe5BDJ3wLrdKIfu XVDdY1MloM0kGkMdYTQf ZGRkOyc+PHRhYmxlIHdp ZHRoPScxMDAlJyBzdHls EL5hYq3kPMBhNMLp fJgpwNTzGwKwf3foMYXx CLpvSZ7hxRmbV4HleBJ6 CSMju6p8Em39U58cI5Kg dXA+GWAofRB7aYA1 pD1bBcYsHrJ0IEqnF096 JjMxaXNjLgltp5lli3nr eIl1UaA7LMKqqiQfmWke JPQ0u2WmXz70A09y IHdpZHRoPSIxNSUiIHZh gHubei0ezB8gOf7+PGNv hSM2jTY5jY6qBuTjTlE3 XRhgJ209WuAtlDQc Lnros4oeg3fndIy7QsWy FCSjteOmeKzgLQF0a1Vy Jv74I5SntUjfh6HtGdw1 ib33rTOro2U5pUW3 F8QbCHSarvuzrQMlpWfs HX7wVHDtplqxORYpqP5x BHQjK2d9YdEjAdF0BNbs T9SgojC0AHBgqNQp LADtgUDGtO1ketxmr1uh sphtGtQbOQLcQRc2FEl8 QDUluZvpCnNwIXJ2GsF9 LDJ8aGPgpC0wcNmm bbzyoZ2eCzw+WPS7dTKu lBRZKO0yQhhlaSV+PHRk YRY9oDerNZheTLEadN3y RHRgO8f8KaKuBfC4 DCvdX4PqcyU5HIDdhQSx ZDVliSVHjE1wamwyd5lv zjsnVgBsOVLzGVi3XUf1 LWFsaWduOiBsZWZ0 GsN7NTS5mTRbnL2wkQle zrjmsA2vMwq+QmlydGgg SCU8SLi0Q6AwBiq3JWYh gSikPD2ekLLsTSkj Zp5okYvjkEagAF9cEVZb eqeyp579RfKdo2nyHTSc kIVzKZfqFMK6C07ub8T0 AKWmUFSjGTZ3cCG1 mZ1uwQzxomuqpFPasXrh vvZxuNsjZQigQZpcZ635 YPAzlWczLdIrRJx6P1Ke Udq9JNGdzZvcUB4p sGNyMSnbCj2pfKdiyCos JE1jWMSotlcoi104RhNx d7nwGRJwmRQrJEluTMY3 N92yg5Q9JGJmZVMf QQF2hTI0zG4epDdxocen bGVmdDsgdmVydGljYWwt MYinO870CSFulBisZuGr lWb0N7UoQiw6LLSs mLxkZU6qbPWiFVmwFh6y hCxoqCehVX7nOSGbkqcy p084OfOmo7hrSZFagSBr MUwwHUY8J25xx9Y3 QAIzEBZvYMV3xOJ3pA4e bGlnbjogbGVmdDsgdmVy yZlyYHecEOtyG241DECn cDsnPlBhdGllbnQg GWoaVVm9P0IcIqgrxXF+ RZ53EMErBJ30gWGolSUn k5njjJi9BgNhRGXiLFV3 kIedTDclv3WuIVPa H30uyLIts5C0NMOlhZtp mXDtBxDsrCL0hK4aZPoy vqktx8tjxsqxBgkpi3ng sf99jJ05I98fSBgs ZHRoPSIzMCUiIHZhbGln go7rzD6vOd0+PGNvbCB3 oQD8xF5nJRUeJoY5HFcl M301HzWhxDRbSxoo j5wlz5aesTi9OlV7VFAj gaKvxPzqUPC6f9XbGg67 I89aXQoxWFJqHXPkMFKr UKCslNikft3ilH9o Ii8+CDIfqKU7mPC7bX1g ZuLaKtV8SZwqW414OzMo tYKrIjfaY40nQ5UcsDX+ WFRbTqy5YRTugFco GV8ozRTfVBoaGz6rJEI8 DyCqAkXeHWzdT9YeJLFs tyqowssdsYF4LTXzVFUn cC85Cz9jaBjlURJm nDVMrJ8pwgxbh3wtsqsq EuXhBFSuRXs8NZy4OZHk hMneNlBfEND6JuD9LLJ4 hEGkrG9fiGiwghxe hU5bA6YeQZGpbuheZf53 nH3sQjVgHlZ2TBomZne+ UkFUTElGRiwgREFXTiBN QVJJRTwvdGQ+PHRk IEL0jXdfUMdtGGKthP5u XUYrS5v1DgRqCmY6WQag I5JaQHNiroceDm08iR1g EjZeFhF0XMbzI3Bs crL8VRTaeIRoUUnkUHR7 P86rp9J6LJGzOEUyWUX6 zIK4hD9aiLhodqxojPWb dDsgdmVydGljYWwt DWbhW519THOdiUhtTmBd WtVuWrP6LJb9A9VgTkt0 RNZzuCjqVY8btOKyKZdi Pl3qmHoosOeeIP9l NIBnhryePFUyhH9eALTv kZUzrNiwQK9cKFSsnwqb a514UbTyMAE9ZVXmjSEm P6JgmW9cMbMrVJAh KUVtQ5MfwCNyAIsnC625 KGasTkE9NJKnymBrP5Fg YVRyqUkbNbJ1f3Z3Vc2x NyBZZWFyczwvdGQ+ VXLtJOJ2jNnaELhxPWHy oW7cQNQmL8s6UbLqBnH4 NFckG9JfRTXrcwklLm23 dI7hTgRiXoS3ZKua G2JayiO2GRZnrOJhWNuf WWX9H64fw3C0VBYbIQVa IOP6gDJ9gC9gpLccxawt bGVmdDsgdmVydGlj QRnoWQevF242UTNncCru PkZFTUFMRTwvdGQ+PHRk RZQ5jDreISbcBHDatJ5h ZHMtN9x4SvEfMnX7 HUkzY9QkLPExqxdlPq43 zF7uJpWyTwU6KGekV0Es ylM9OIAgoGFyMExmDHM3 D03ji9T0SOEhBMQy EBY7zSU4dK6xqXawdqmi bGVmdDsgdmVydGljYWwt MHbaU606EVCwlXsfKmKd oQQZmGPkNOH7BP07 LK72E2PfKcbnuHDckYG+ PHRhYmxlIHdpZHRoPScx TXJhWfEoqKroMA1kZk9i ZGVyLWNvbGxhcHNl LzAgd1xaCSYoKSbpBE1l mLusX7NkoJC5IKWzl1a2 Ab95R49oJ7TpoEZ+PGNv iQY1aEY2qT3pHxHn TfM3SIsuZ431KqKmtFJa Lrmwf8zsu9qqrIn4PjEe KHTixzYhaKdoHSQ6x1Uj Xy90T74tMXxcIOGf DPWlWBXwQLZdbBvecc8q wR4oUl4+RVEuvWE5hPM8 rF1uTbPfOrM0ZMolH421 UwBofENqJbhmX86o W1CgdWK+AFDhFrp1VOUb dYjwZS4dkAOoMFopLs8j HWI7AeCqMcIfIRnsC0Uv ZGRpbmctcmlnaHQ6 XSXtJTKgmW31Ec6rjUmi Ok7dBKElEER8TBFwdLRw A2JecI4xZvSuSTQlEYLo Y3FmlRKjMTloU460 HAubLoQ9BHDlfePcC2Bx PZSsiYhnVcP3d2F1Ln8E wGrziQUnGZ6fDvFoDKu2 S5RbVls8PFNbdYcc WS9afRNkQPmrBy7fnHor hIqxDK0lXNWrlzneb009 FeJqs6coKBKgbIGcRYbu ULB8N16uk0N1VHRj ZSApZAK1xJE3rP4aaUdh bjogbGVmdDsgdmVydGlj SYjjCLccH177QGRsaEpk WtTOFnh7M3WoHzu8 ORGczVruCV1onIAaVTnp Cw8haLktgCztNE9sEDGf mmris662AmZlj2rpXOYz qDFpUYduXBB3H19s i6S2RHNzXLHwZYS0kBV5 zW3akXnvypporXBarLmx pcQvkWriEAmjWYumN108 EYPjzWzbYr1DHci8 C1HlYkr6ZQCshHeoCZ8x dPAeLImeCf4oyEqjrKfu KS1oFUBqqmjov981GlYi h8nkYCSozOJpCYyq IGS2J74wu2K6SSGeHMUf EVG7vKB4oJ0iaHgzlojz bGVmdDsgdmVydGljYWwt NEdkI034FLRxmRle PlBheWVyOjwvdGQ+PC90 ox53V9ItKlqtShh0VVDe KIT0eFM1kD8yZRQzQRuv k4D1zDR2D7EwjvLm ci1 (more content not included)... [facility] Provider Orderson 04-02-2024 Provider Orders [id number]# [id number] [facility] Progress Note - Nurseon - Progress [...] on: 03/29/2024 13:53 EDT] Freda Henriquez RN [facility] Progress Note - Nurseon Progress Note - Nurse Patient did not show up for boateng catheter exchange. Registration was unable to get a hold of patient. Left message with Olena. [Electronically Signed on: 03/23/2024 15:51 EDT] Sophy Araiza RN [Verified on: 03/23/2024 15:51 EDT] Sophy Araiza [facility] Coding Summaryon 02-28-2024 Coding Summary HTMLBase 64 PbknhntmDYk4lUt+PGhl YWQ+KO1CADNeY24cxJIg mI3lV4ESEHsYNzwlQUUJ PXwZYvYsevGuFB5eoCTd ZXJu IC8+ZS7tFJNeObtspLBi r6U9hAH2I36txu9qGSsa qLW8VZZgArPvtcyaz0fg dBa6JJprHrlvLuLa BBVjjO82XJX5aJ80Ym52 eFDalYFbc9yhuEi0CsFq EGCwNRF0qQpuGGzyj8Az KOVvV90itMGqt2Y0 IGNvbGxhcHNlOyBlbXB0 zZ1vUStwinyqw8zjfluf Fzu8wx92yAJea1F7rZN7 Y2PxhvV0MYGhmZJm ZnbdsODUkM0kpxxrq2hh tyefXaQiGOClWCx0IOg1 OMSkjZtzXtIyFI24AIQ4 IBRxbtUbD6OiAXLa iWxgXzB4p0N0Sc8AT6NZ IywkI5CJMAYXJPpqqHK+ HS95vp42C3KjOgflMnc5 NAPxHWY8dOE7fP1i BYUfEMzcd0M6eCW3Q7Qi evBczc6hv2giXXOpDVhj S98cgVScl2Y9YCGbtZH5 DNSajZhoYbAhaO11 Oyc+UUOkbItpi7TlPblp b2orx3yhfYp0YxieJZKf gkHsbSawMPW0u9TcZq2t OAVvwRS3rWS4jQ2q CwYlWoE2CIhrU632AtRw gTWcWrhqT88uB9ZdbUY+ ORHeUpa8RPOsmXfyWZ9v I8OhWYSvciunvACe eDmeRP3nTAYnaimpIKGx pN6mCIFrH3v8FgYzOyN6 GPnfQ6QlWBCyzhllBn04 yI1wBjSbBdN8QCav D8YilvI0DAOffCCtUNbz IBP4P96uk4P7PMOfUTVp VFI9vHZ7eR6plEgsoand bGVmdDsgdmVydGlj KGwtFFgjF649PCPkmFvr PkNvZGluZyBEYXRlOiAg MDUvMTQvMjAyNDwvdGQ+ JJHqDYY9gEevZYGv cHXqCHcpNb3pwJhmiQza RG7yFSDenoxqFQCxsT1a FJNyrSQdaQzgWC5eFRDc iyfkf350HiFkRCT0 APBqtKRrL3ZffF0mQlWp AGBjVEKcO9WshSOiTFxh Y496GCslSvY8UURwpaVv M0GnICAcoDzyGhO7 q9N1Me1Rg3KchutdL3Ra kPXbQoNeZuehKTf8R8Px PjwvdHI+ZJ36EKUpND61 XQk8UOG0uPpxIVpn PCEfS5VpzP7mYuYjBEHn ZGRkOyc+PHRhYmxlIHdp ZHRoPScxMDAlJyBzdHls AT2uHc5oUQPiYIXs yUbcjTSsLkBuz5tqEYBl CKojJT6prVygV4YhiWG3 LELbv3i2Hn88T24dV9Bm dXA+FMFblBY3tVP2 vR9hWhKpXbN6HBalF596 KyYnjKCkPlgzn2jdj1gr wQi1EvF1EOJkpgJylIji IJJ6e1JoNy83Z78q IHdpZHRoPSIxNSUiIHZh vUutal4izK5iNh3+PGNv zGM5sQH5wW8iYvXbHlO7 ARvnE013SjVexAWo Hytfu3qhk8yzsJt3JrOa JUFllcOobOwuOTA6y3Li Qc62S5YnxLswl0KbThv2 fr80iRIsw8G5jEN3 G6RmXLMpzntplPPkrDeg PM6cACYnfpjtUACfvN9i TCBaV3m1OrLqGhD0ACif D8BifiO3TPMnfUGb LWGovJKLkL3cabhov8fu tyuaScXaWZCuFHw0BQr6 KGEcbKqzPsGqHIQ0AvG8 XFU7sTXhvY3yjLso bxfgpV2dIou+BLR2fZYh aETGIH1cYbhhxLQ+PHRk HIN5hOvoMShgWXYynH1v YNXtZ6j6NmMfSdK9 WXstB6PyuxP2OZNyzKIl UWLkmZKWcQ4dcghkj7xr arelHsOoNTQnOHe9VZw1 LWFsaWduOiBsZWZ0 MuP0KIO9xXWgpI3kdZmm unmhoX6eRqr+QmlydGgg ADK2NBu2Q4OjHha5GDYh tYmmLT7fqYYwBQen Zt9tpFnezYfhMZ1wXDUv hwkhy771LcSfy3vkUJRw pRQrTFviCGC7D01hj5G8 DNHiHRBeBLS3kQQ3 xZ3tdVnnhonvfOBqsKmh yqBokQauWTqyMVegU038 SHFveVbfNrWhCSd0X6Lk Wxk6XDCxlHmpCN1d tHBhGCmoVx3wvRkccKut MR2gTPZyoxkoo621RyRf q0udOXHxcDNbZKwbGOX9 M56uh4Y6DHKcLHVi MLO3kMP0hH2gdVjayobr bGVmdDsgdmVydGljYWwt QRxsN589XPSosBfwVzLw kLz9X3PzFqr7CYQk oQwiPW5exSRvKXqvAv1k cZrflWhmXJ9rCPAjoutm f094GmAke6xlUJUdxMPo CPykFKC8A17dh6Z1 FGRtGEMpNIT8qDI4fC1c bGlnbjogbGVmdDsgdmVy kSujYXwkZBwnX338HWPa cDsnPlBhdGllbnQg GHxzYZq9E4VvZmhxwBH+ DB59KCNaGQ29vATeoGFv c9yjrVb2QvXdFFRjVPJ0 kUsiYVnib8SgQWXv V68ygITph3I8OBEoaTtl uHTtRpJfcSL7qG6pSLng cthhr1lmttnjWepvo8fl mv75aJ65X62sNNvw ZHRoPSIzMCUiIHZhbGln wo9xiN4pSa6+PGNvbCB3 kQL3eT4nICWvGkA9XJaq L690HaGcbUZqJyuk u0ogr1ohfCh7KlZ7AIVo tsIojGklQWV9a6WiDv73 J07yUUezSGAyJHMmFPZe NDOlgTjhka2crT3g Ii8+WLWcnTO6nLI5nA8l PiSjUbC1CKugZ380MrKh oRFmXcpwK70kO9ZuhPU+ WILqFrg3ZZWjkWeo QN8dxKMhFOiyLj2hPYC1 XdKyLrLkWZjpV8VoIAOp gnqefrzfmGC2PAIbHEWc uN75Ez2xxAxkAPYw pDZIgD5olngjy6vrhoxi LfLbUINuNRz6GOy3ZPOl oVhzReCzLXP7ByU7WDC2 nKSmzL5tmQsbsxja eK5jF5EvTPDkvnndEs88 tV2dHvDlNpC8XLvcHem+ UkFUTElGRiwgREFXTiBN QVJJRTwvdGQ+PHRk BOH0jUulCFfvOAZqmL5q DCJxE6y2FdZcFqX9SSqo R4FlZJMiepatUl25mV3p EsEcPlW6JEnqK3Kp chM9ZWOvrIVgCPqmBEQ8 L45es0F6SVAnHGYgPOD3 vLV4oW2ioDidimacqHId dDsgdmVydGljYWwt ZHznL086LZLctAeaLfOo NkZePvT5OOg7R9SwEtv5 HRRfjKzqPM1boJIjHIcw Ei3lsGtkvGqmIY5n FBHyalrrOIDgtG2wDGLs fZBcgGtcQU3aUVZajxdk z433OkHqDPQ2DALnbEQw U5QyqL6dNmGiJZQx BUKbY1HguAQpBBgiM347 DHkiWwI9RQZstjSzN9Hx IMHmjVopWgR5f6K5Fu9w NyBZZWFyczwvdGQ+ QBCvHFD5eYiwLZseOHZn pR7mWCMyN7e5UtQhFaY3 OEtbS3ZwHZWdrrvsBg37 wD0gQtBbPyE4NVrs O5QbgbS6IEAoaUClJSsb GWP6X61sy3X1PSXeVCTz MLW7eHJ0tT0baLidzdmn bGVmdDsgdmVydGlj HMajYKsmT343QIYrsJcu PkZFTUFMRTwvdGQ+PHRk TIN6nUlyJJinJOKgmJ8g YFCbC7o4LyZlDiG2 DFxaW2OzUMYmyfemLm76 oZ8zPlZtGgU0PKgoD8Op mtU7GERqwVAmFCtzZBU8 Z55kq7S9NLOmYQLh DYB4hRV2mB8anMdgyxgr bGVmdDsgdmVydGljYWwt YPkgR299WKTgyWjxGoEr rJEKgGFhZZR3IU78 DG94J8ZjWqvuaKXquST+ PHRhYmxlIHdpZHRoPScx SPCyOoCveHxuMN5iRy5y ZGVyLWNvbGxhcHNl ZmPue8lwXCJeZKmoEW2i bMviV1SolRB5ZALkc0o4 Wr94N49vR2KpiJZ+PGNv nPF3yPU3yF2lLvVe OmH4OCiyT170FcPmfAOs Wlhil4gna1greWs7WzZs OSEqleRcsKwhQVT9n7Sm Av69A27pYAzeTSGs SZOwLSXcHABvqYllhp4i mS6uMg9+TFSpxQN0eSX0 jR2tRxLeGlB5KQrzY687 ImGaaFZbLkhyF22b S3CepCC+KZPrDie0WFFz xZovIM5pmRIzCSzqPd5r XHA5KqBfZrAfQVfiN6Kh ZGRpbmctcmlnaHQ6 APTnFSArqS80Qx6cxQls Og6vTLBoCXF2WUGtxXVz W1RulJ5aDuKiHULgTKPf W9RdyGUrWFqxM183 PPvsLiM9AOOxcrUgP9Vs SJIteTrjVlU3x4V2Td8T xTpwiSIlPR4cPzNsPWz3 W8MyMqq7GVWjtIgg KF4awZHvXNfuDm0lpUpv qVzjBJ2jCDQigumir370 XgXhj7ojLWCrnTSvFVkq LYA1L63hh5G3FIOk HRHiOTG3fGH0iJ0ssWti bjogbGVmdDsgdmVydGlj TYxoJMzrS384GQXupItt WcTVYvk6D8PnTjw3 HZQkhBiuVE4cbVObJZbv Am2tiQuinWclXB0xMRAp evzfy027MaYbt7twCNFq cYXbGEmpGFZ4J09c h9Z1HUKkPDDpRSW8rLX4 pL7xtEkxwefthEIjuBkq mwAvkBiwCKqkQRxdJ522 EUYijCfkDw1MSjj0 W3YfHbg5HNFppRyqHV8u xFHqHMonMy0nyHstyKrh MJ8xSBXtxdfjd423EeCt t0bcHSHklADlPVqi YMQ6G81gp2H4KEWoVHSf OJR7mOK3wO1riFidcxix bGVmdDsgdmVydGljYWwt TYjrI256LGCqwGwl PlBheWVyOjwvdGQ+PC90 rh17P7AuMuvbCcv4LLAu TZE3xBB0hO1iNXBqWFbr e2S3tAQ0G1PvolCs ci1 (more content not included)... [facility] Provider Orderson 02-23-2024 Provider Orders [id number]# [id number] [facility] MAGR Preoperative Recordon 0 02-22-2024 MAGR Preoperative Record MAGR Pre-Op Record Summary Primary Physician: Sreekanth Dey MD Finalized Date/Time: 02/22/24 12:20:00 Pt. Name: TYESHA PERALTA/Sex: 1985 FEMALE Med Rec #: [id number] Physician: Sreekanth Dey MD Financial #: [id number] Pt. Type: D Room/Bed: / Admit/Disch: 02/22/24 [...] correct. General Comments: [facility] for further noting Finalized By: Savita Oro RN Document Signatures Signed By: Savita Oro RN 02/22/24 12:20 [facility] Progress Note - Nurseon 05-0 Progress Note - Nurse Pt arrived for scheduld monthly boateng change- see Interactive View for further noting. [Electronically Signed on: 02/22/2024 14:16 EDT] Savita Oro RN [Verified on: 02/22/2024 14:16 EDT] Savita Oro RN [facility] Provider Orderson 01-31-2024 Provider Orders [id number]# 1.00OTGTIFF [facility] Coding Summaryon 01-30-2024 Coding Summary HTMLBase 64 XjfvsuxaZKu3xDp+PGhl YWQ+FC7ACWNtZ18urOGm dQ8eF9ULJShQSvuzGAJF TMkQWoUvxhNjOI3ixXOp ZXJu IC8+YT3zEBQwIoawxPDv t3C7wWK6L75vaf2qKWna tME8AEXoTvUbgkcrh2rs fAf4BMbvMvitVzNr ZYMyxF98OBF0xH95Xg11 pDUgcGMgd6ypkNj8JqVd GYVnOVV9bXoySRgtf8Vb MVFiQ16kfCZsc9P9 IGNvbGxhcHNlOyBlbXB0 aK6sNAqknjnej1iagxil Uoh4hy80pNRbr6D7aEQ2 T5LsyxH5WSWuvMSh DwflpQFKyK8lnhier7if kvjeXeReTRNsAOj8QJv6 FIGgcYveClAjLL89RPW4 ZDGqggReK4XmALUm kDfdHnX1b5L7Yj3DT8VE KblwO3POCBDCRQdbuEQ+ SJ63pe60S5ErKqxnXip2 FOEqGTJ0sVC5zG0o KPEuCOzcl7R1sAG6W3Uy tbIjnt3xw3fwVECxFYjr F06klXWaa8I1NCJfvHG4 GQIudXqyMmItjJ05 Oyc+BXFrtOasp4PcQpnw t0qja2ekjYk4AbowNONb ouOdkZuwYFS2z0RuEc9r REFdsPP3sUB1tP4v SjAzKgI0LRwcP153OpBk gUEuGdmhF70vG4HfkPA+ IRAaAap4HASlqQsaJA9r H6VxKBTfemgztOSs mMtrEX5eKIHtmjbjIHJr uD7nHYKkJ4w3CgRiJyA6 EDtyI9OvVNVhlecbVc24 hK5yDtHcUxB9AGno W9LdjzC6SWFmeYYuLPtf HWU1D40hj6Q7BTTrLEDp YSR4rZG5bF2jnVjepajw bGVmdDsgdmVydGlj VKcyDPnyI080TGLhiOhd PkNvZGluZyBEYXRlOiAg MDQvMTUvMjAyNDwvdGQ+ VIPqSQW6hFsmUKLt lSVuHXmpSv4vgGroqNye LY7jXHHxeezjBVGxyG5p UTJqoCBfhKaoWZ8lXPAy jcewv190VzNcSIB9 VEXecYZnD7EdwH4bObMw PCGhJMSlK8CclMYoJIiv G801BTzfRoO1RBIallQp E3WiKPNxdJxzMzU8 h2L6Ft4Gb7YzkfdnW7Hl iMNjCmBqIiipNKm9B9Pn PjwvdHI+JA07JMVaNW89 SPg1QVS5lFohIWjg QJYnX7JifB2iTrDnDDYa ZGRkOyc+PHRhYmxlIHdp ZHRoPScxMDAlJyBzdHls FN3qJi8mUVWoSXZi iHkbsPSpDdWyi5zrTYDq AIxmYN0kbVrdF4FrrTQ1 VCOyh4q6Nn77V06zW3Au dXA+GKKfdNN8zYE2 aX9qDgSqMjK6IJncE846 RqCfmAKaCzfar3ltt7fj dSh0JyI3FTCmidLwuZgy FUM6h2KqTc24S55l IHdpZHRoPSIxNSUiIHZh lYfwcx9avM7sKm6+PGNv cHX3dRW0qF6kQrGjKiT1 ZNzsS780EdVvvLXb Diors3kmz6ukfOk1LmUk WPWowvIxpTvvZRO4s3Cm Td95N2OvwCtmf0RzZty8 kw71gNTpn3U7tHS7 A1GtUPHnryrgvBRmxPgu GT1kBIGditysBDXfxQ9h UGQbW0i8QyQbGsN9JNrf O3XhbbP1SLPtsZDw DQKktRTSdD8tpxczl0il rcdwAsIvLXHvQPn6LEo8 EPDwmHjtXyYxGTG4GqS4 WBD1fCRyzK3xlGrc jipriQ3jZuh+OUE3vYCe sKZQLL6nOcybxMU+PHRk FMG9sIziWQyoFHWzkJ9f ZHFwO0t9MrZbVkV1 PDfwU1GqadB8SXGugIAq DKJzuPHNbQ2nvexxf5ht jjdhMvKnKZYzTNq6TBu5 LWFsaWduOiBsZWZ0 KzA2XHP2wRLwpH3zrJsc jsxbjI3cSuy+QmlydGgg QYG6HAd9N7XgTry1SLKl vXzlYN6clONfOJhd Bo8fzPnusZtqUS6bYWMs fwstq876HhSts1pmXRTg sUNsWByfKGI6A35fa6I2 HWZmTFWbMOE5bDI3 mK5ieHqviopnpRUgrEkc qmWpsXkqSCtxEHwbN064 BOIebNirAzOgPWl8K0Rj Ecp7HFKveCqhWL1a pNJeXVisYo2ckApceMfw JK7gRAKidgrui738WhJm l8bwRDCokZOjWLrzHXN0 D27lv1J9YOOcAOKz TEX4pRY7fL2mwWvhbpcr bGVmdDsgdmVydGljYWwt MUbzW021JIQzfOkxCzNl xMq9Y9TjDkw6VRAo dWdsVK9feLDrBQoiZw1u vUruuMllBZ3gZTRgjxkz o843BpTed8ttEVQjkWNm TEmqDJT8X90ql9R6 SQIdOPCwHON5xWB6mI2m bGlnbjogbGVmdDsgdmVy qGcdGQzmOJxoD410GUTk cDsnPlBhdGllbnQg KQmzMHo8E9IlTzlyjPE+ PK88YQChDY31rCHvwUAr s4nvaOi4RlCmCFGgEPD5 bRwrGRfla2IlMXSs D68ygEXtz1C9ZURwdPiv bPZmGvGprID9nN7bWHxi xbbpy9udkqazVbfws1ph cq18qK23I27hLSku ZHRoPSIzMCUiIHZhbGln xn3pgH1gAr2+PGNvbCB3 zSP1tJ6fLZBxJhW5RCvw Q248DfOgjWTeAeyf u3rkd7arvDg4RhC6ENLi acBahVlkELO5t8UaWx54 Q89iLEdnVHLiDFXiQYMe BEJgrXtpxm0lpR8g Ii8+LUTksYS8lTP3tN2a ZlJiKqA3BGavK496BwEs eVQeUuznQ63nT6TrfQR+ NRMoXtt1NCIvsBkr QL1ahUMuOTxePx3cNSD9 EfShSaEtVYeiM2DaELLr sdgajptrnHP2LEIoLGZp wT99Qy7ydZavLSFl wVADmO2subafp9eefvth WkShKNJlBQx7MJk3GXZi rXhpHwHvWTC7BrA3XQD8 bSHxdQ6ueEwbdbcb zK8gM3KfHGMatzsgQw89 tV7bWrGhSnH2AEqkBcu+ UkFUTElGRiwgREFXTiBN QVJJRTwvdGQ+PHRk TPN4bGamGLuvGSSrqK1a LSXbP9c7OyBzWeC8FVrf O5UkGXOtstqbHz95rM6m RvGnGoD0MEjwA5Kz pxK6GGUusNLiJKyhFJP3 C67wp4A8IJHlXAFpERQ8 tMB0cG8oxEligiscnMBd dDsgdmVydGljYWwt XFwjV099SXXroJhzNjAn IqXlBlF7DJd1Z4ZnPff2 EVZjrNyvKR3amFTkLPtr Oo9kjGbfdPbdQC1j QDWnwrlpXYVfgK3rEPSj jERpeZenFF3jGJDammmo r384NuJnQVI8HKXymQTr H7ItpD3sEpWcOYOt NYStS0QywIHoGDtlN926 TXqdVhX8YOEtahFdB8Jr MNKfhUnjLjH1q6J6Pe3b NyBZZWFyczwvdGQ+ MOAlWND5fUbuXFqoRMYy fV5eFRLxW5c7CdKuXbI8 FDpoE3IiMPTyizvqZv08 iM7hIpKmUlR4GLvo F3HwscB1SLBlnZAaDKwk RMM4H71dm9O3ULStRUZc JUI5lOF7bI3gjNgaqqrd bGVmdDsgdmVydGlj MRvvRAnrH012JUMzoEwh PkZFTUFMRTwvdGQ+PHRk LAH9yPbdDHhrDHJibW0r CCPoX5g5YoDkBgK3 CWmvQ0GhNBRrthxrKe46 bL1zTlHiVmK5YSvaQ4Mm gqB0OZQxrFYzJDjhBRV8 L08xn0E4TYOxTXXg TUK8sGE0vO7dvMjfmaqf bGVmdDsgdmVydGljYWwt TOxbO472KICnuYfyMnHq gLEEmWBtOTX0UJ87 RM04W8GoVnoxmCVeiSQ+ PHRhYmxlIHdpZHRoPScx VLElVqMrjXykHK6nIc0f ZGVyLWNvbGxhcHNl MmNbq7rpWVAkOQkxAK8f nSiqI2BfkRC7XGKya5i4 Ub58F97zW4DzcKZ+PGNv xFE4wFQ3fP9pKwBr FhP9JOdqP055UtDerEYz Hlxnj9nbq7xkbVx8ZbVf HXHzmkHclMojOAN1w5Po Si56Z13vMIerFQJi LMJsZDNpBEBpaTnkwc4w nJ2uXl4+OOXwsYR5cLI7 yK6bAaMcYuX3GLbdG782 FiPoxOMsQnsmH14r C7EfsAX+WVFwDxs4LHSe dSclTY5hoWHzAPkkVl6x XGH1ZhFwJoKrNSnrA7Gu ZGRpbmctcmlnaHQ6 YQNgQCLtwB10Ll6znQqb Ri2mTHVqNRS8MPTzoZBs O2YwlT4eGsOgXJSsHYFp Y8ZfsYGtONduH288 LVkbYlT0IZJdjyAoA7Dd RNYgaSlyDnI9p2G5Yn2T aXnbrVXyWP8uEwGqTLl5 G3ZhFnd5GSNxqZpy DS6fbJYqTTebMx6dkEzj aAysJB1cTXZzylcun482 TwFrr6kaTPSmsYBdCIgw TYW0K37cs2K3JSVt PQKlPKG3cQR9uE2bnKvs bjogbGVmdDsgdmVydGlj TJzaPBklQ719WEXbpKfa ZxDJIsy5Q0KcEya9 ZCCskStdVB6obIEmQPnj Yi7nbNlpiXpcQK3qBYRr osmmd330TmUvf7ehNBXb oCReKEukPRT5Z96b d7I2QSQjHTUnOJV3kYA9 wR8hiGintefozVQjaXqa lbHqhYucHKmrTRijS849 SWXeiMfxOk6BBgb7 J4FtYeg6IQCixYcbRS2o hFJrWReqAf6qpHrmtNwf AB3qEUUkwmfdd804GqKl i1gxVVFshMPxNIqa PYN3G25ni7Y5YPJzMKAh VMA4qBC0eE5vrHmrfqnk bGVmdDsgdmVydGljYWwt OYrvG738CWBxkCma PlBheWVyOjwvdGQ+PC90 tc39Q9YbZfiuObd3KFSj LMH5fTL9vF7aQSOvQWqi w5I3uKB4Q1KrlfQg ci1 (more content not included)... [facility] Progress Note - Nurseon - Progress [...] on: 01/25/2024 11:53 EDT] Jose G Sophy [facility] Coding Summaryon 01-02-2024 Coding Summary HTMLBase 64 FucimwcmVXw1jOm+PGhl YWQ+ET0SESAeV70hjTEu rY3aV7ICPJrMVcjbLFDN ZXkEXeGbhyYfVF1xpVMc ZXJu IC8+YJ5cXDHjHbfyzZXw h9Q1aQI6F74ldr3tSAps nOY2XERoHvIergoec2mq yKx2QJxyPtesAtJz POFjlY31PZL5zC06Hl09 cUUnjOHnx1eptDk0OyHr QWNeEAQ7qYefLSnwk8Rq FBFjI73qhIMwy6L4 IGNvbGxhcHNlOyBlbXB0 iG4zGNrchwexu8tcrmph Hqn1dl69uBSpq4Y0oUH7 R5HpgyH3FNFmfWNx CumwnLHUvG9lqeqla1vl skmuOqQqCRYoKPo5CXs6 SXGdkLsrGgPdBS87FPL7 TZEwdrTgI2DoWAMe cTwtJvM9n3J5Ok0BP0TH NubmA6KJFCLPMOymwPR+ KP20sp78D4JgWcenVan0 QULkUGL0aGR6gR2k SVPaFLtly9Y9bIJ4A7Ay ptTcfq9nc8tbXUIxNCmr Q03nbJKal0J9RERmlMI2 MHFxxKbuDkElcJ65 Oyc+ZZVfdLnfp0WzWehr t9ods5abdDb8PwfgKYLs gsQkyRmqZRC3f6ZgXf7o EQIqjNU8vSH2yV3o HsYeZyF2MJpfM327PwSf jJFxXiqaY30rE6TesVB+ EKYuZca3HAOsaVybOG0e W7PkYOMymxckmFYt vImrOT1cTRJasifoJJQt gB7kPPOsS2v6TxJjLvT0 LCjfM6UyATAdewvfCs80 xG3xFuIdQsZ1LQgf P0SlnyS1WBOfbUVeHBos IOJ3A98vu6E9OCVbCEXn LHU2fUZ8jX7gtWeomgeq bGVmdDsgdmVydGlj EFypWAwhO691KOSteKeh PkNvZGluZyBEYXRlOiAg MDMvMTgvMjAyNDwvdGQ+ FAXcBUG1sAbgISYy zEHnLEmhHh0shXxoqUdn XH3rBZOquockYZAzxF9p ZTQcaOGsnEnaSZ4pRTXi grszp869TlPxZIA7 TSPanADlM9IsvT9fVtHm CYHgMBJvJ3ZfqKJyWKei P821CBboJyR3DDIzmiKu J5FcXPTznJoqSeQ6 m7B9Xe7Wo6GudxftP1Ym wQGrMfDkKgeyLXu9U7Qi PjwvdHI+EJ11VORqAM82 ITw2ABU9sQutKBdb JKJbS8RekO4aXePvWSIi ZGRkOyc+PHRhYmxlIHdp ZHRoPScxMDAlJyBzdHls JL4lKh1pWMIvGISk vZkxcCXjNvWdc8yqEONn LFmsCU7bqOmfB4NdzVE9 EHSsz4h7Ui71C21fL4Ke dXA+OCSvsEV3xLU3 jW4bRlGtIhC1VSjeE491 PzRnbNKmDhvqz6pxe7ug eXq4HdK1TKJladLxsMoo DIA8r3NdCy64B70c IHdpZHRoPSIxNSUiIHZh xQpzsi5xdB6mGs4+PGNv qSM7qMS1eF8gFtKbMjL4 FRwuT335NmXzbZAc Cyikt2jom2nhqVt4KzSl FKCfskDawRvnYFM4l0Ny Iw52S1ZxsYnin9BbOfi3 of23fRPxs6G1yAM1 B7NsXGPiyqgprIKzaXai VQ8sXAQpqinfIIVpwL2f EWZiW4q8YrRlHpC4IHnk C6NedaT2IZZbgBMs SFSsjDJUqD1tqhdwi7uk qsidYoHeEVHdZYh2LEk6 SNSxgBgyOxXnVEX4MpI6 OVY9lHOhdO3leNhg kbdzwN5oTqi+DRF1mRBn sBMTLX8mIzsqwVC+PHRk QOV4bDmkVYagXKEvfK1h MCRqZ4l2TjEcVaO3 ZDtlY4TyzvV4KVNmeLTz IAGydKNJcY1wtkgzw2zi ztvfEiRzUEXwXXn0PZm4 LWFsaWduOiBsZWZ0 UeZ9TTB9fTTgsT5kpVgz evivrN6mNcv+QmlydGgg OWZ4TPv6W7ZeHor8RZVc uDfxDU0jiZVoWEkv Om7brRnrqKmmLX6kPYQb rjzpm858RuGtq6mhFKCa zRSzYNdlFRL3W62jb6M1 YELrSXCcBBB0pOK0 eN8imRmzxgmfyZVucJab dkVoyBvbWMuqJLyqW226 JMPmjGjkVnAsLXc8H4Il Acn7IFQvmVktZQ6i rNYdAXudPy7wmWdgmNlu RV3wTWQlnicvi500TeBc k0lnXPXtwOLwJVaaNPN6 R68ga4Q7QHZbHJVu TYA1yIK2rH6msLwvqmic bGVmdDsgdmVydGljYWwt YDqnU959PVJchLmgKeWk zRn8L6ZiXbk2AXMi bJnwOJ4wzIXyMYyiTb3d lFjshPbcJD8xBYUznwrk g784ZnXlb1zhQSCnjRBx HKnkXFK6U42no0E0 DWFpWFUkAFA9cDZ1mX1h bGlnbjogbGVmdDsgdmVy pOlwINcsMTyhH633ZZJw cDsnPlBhdGllbnQg JAloPJg7L5JiDswkyHH+ MF26TDJiXT04oHNpvPLp d1dgbNf1UvXyKYBdTKD7 hUunBEish6JjKKZq G66alRXum8J0EFVgiSqk vBWhKqLukBV7sR2yOGwl bfjga0rysvekZhkzo8lx tn69pG98H54hTNdi ZHRoPSIzMCUiIHZhbGln yk3frT2fSa3+PGNvbCB3 gJR5gI4xSRDcKeK8GYud S207MyUxnNJfTgmy z4wvv5aslYz7FmQ6ZGNg piBmwPfuFMP7f9FbJm01 D98gXAncMQCkDZScXBAb YLNfnTrpgy2bzL9d Ii8+NWDkhEQ8qHM9yY5g CwDqZeY8KNxjZ963HmYs aEDwStwiY74vE4SgxQR+ UUZmRzg8ISMnoNtq WD6zfDAuRXahFw8nEZP3 NpQoNdCfEQfpI0JkBROq wibwgftrfUC5NEQwQKNv xZ67Op3gfYskXCPg wHPEfD9kvhbqs0dfynsd YoNoXOYxBTh1HKs6KKOc cItpLrYsXNO9DvF5DQP1 mFUqcO2vzZenqfyh gK4qC1NrNFMhrimfLd87 nN4uIjHgFlJ7LRdhOfg+ UkFUTElGRiwgREFXTiBN QVJJRTwvdGQ+PHRk GOU6uFqnKSaaVGPleA0y BSCcT6i3UmHeUrK0BVby C9QiRERkdfbsJf74jG7f GhTpDxN1YGmxM4Lu ylU5ZFNegZWoUJpdROK3 U53bd8N7VENkFOImCSX4 vGU9yM7ztKyxfadrmFRq dDsgdmVydGljYWwt TOnsF881UGNrvRfgEqGz McHbDbW0NJf7S7UzQnu9 ELOyjCelJT0tvPCfMFdw Ku3hpJqyrFioEE5j ADFhirouLSOtuW2wCLEr tAOisUidOT8rHYMtlfqa s032TrZxMUM4HVIrcSIt K2WyyV8tKoHcICJj YUTvJ3HkfFWhZDizX969 FEkpTjM8LRViumHfL2Ez TGGfwBhqAtB6k5B0Rb0k NyBZZWFyczwvdGQ+ OIDmMQH0yGvqVTusZYPu nT6iIDFxG6q6QdDdRwP1 AGcuK6FkPBXzpnvbSg58 kB6oXnAcJvR3JRrq W3XaxwV8LOPqpCMcOZhx ZOJ9C41rn9P3BVKrVNRb XQA3vFO6zH5vtAktshel bGVmdDsgdmVydGlj QPgkBJsuZ659CMLjpTpf PkZFTUFMRTwvdGQ+PHRk YYO5hTriVJcpNHKkaI2j XSIxF7r9DfOtDtP9 CUsxH3QrAMFtipooYx82 fB2oQoSmFrW8RHopW3Nc wrQ0VPQsnELeZBcfFXB7 S14eb8S3JGZcAADt FAV3kLE9bT4kdWzqarkv bGVmdDsgdmVydGljYWwt BEsaK045TTIybWpxTbZo jLWQwIVpAKA5BG04 WO88N7MdGwuuvKTdoCV+ PHRhYmxlIHdpZHRoPScx ZTRwKqEenIufMB7ySn2e ZGVyLWNvbGxhcHNl DmLzm3icGDRaJLyjMU7o aAprK8MjwCG8TONvf9x5 Cq17K77fW8TgnNO+PGNv cIF6sRE7qU1sSiZt LkQ0FOzcO912LtJqgPUy Oagzd0jkm2kwjAe7PuZf SMMcqgOnlXwjGFW0l8Sf Xe56W87mSVgyHNFa JXTsCVQnEKCfrXpltu5f qV5wSf5+IPTiwVW8xHX2 tX8lIgYvIzC5FDeiE950 BlLvsSInWyyjP09d A4LwqUI+KNOjLbj4ETCm kWchKA5viEFlFRokZs4b CRN6JqNtCmFnJSxwR8Sn ZGRpbmctcmlnaHQ6 ZPCbBMLoiO70Kg4ltUgv Nb5vBLHbWLV4FWVvxIYm V8UcxM5tGsXhGHUlBODb V3ZqvYInPHzxE468 WJsmXyB3ZUJhwbLaD4Pt BTBdaMavThP3r5H7Dk4M bXpbtTMhZU2sWeWpNLx6 C2CsWlk1WLZvzIhh RC1hkKYyGNsmTc1emYqd fFmtUL3gTTSmrigtb547 XeAik4jxIKAkvBKyUElx WOF8B83mu6I4ZVWo WBUeZKE0lCJ7bM9twQan bjogbGVmdDsgdmVydGlj LSazDFlqI619IHJbwMec GaTJKsn9Q0FrDqs1 NZPnsTcnIG2nvFHpFRyf Gj6heMwpyRaeNS8uJZCt sonqa182CjZpo6deWYPx uKHsJUunVLJ8D35t p9G3MCPrPCFxOFI1rYF9 pK0seXidaumlvPWlxBbp olJiwJqfHVvkVNctL913 FTAqfEqzEj1NPlx4 M6MpJnt5EPKonOmqGA6m rHDcNNngMa9fnNxohIim KU1gWURvczgck705EmAa x3rjGVShkVVqFGam JFD4L90oi3B2JHGjEBWw DWJ0nSH4iX1feQmrvyfm bGVmdDsgdmVydGljYWwt IXnzU745PWLxoVnn PlBheWVyOjwvdGQ+PC90 uc82E5MqTkihArs7FZZz HDI5oUD4tI9dDNIpCZew k4A9tYG0V6BmlkFx ci1 (more content not included)... [facility] Coding Summary HTMLBase 64 EhllsjkwZIo9dVe+PGhl YWQ+XS1ANANuB99cbFOm dL2gP5CLFKwTGtlvHPKP DQqDKmPvxsZwPY8bfWTt ZXJu IC8+LC8mWXAzVawmxMEm j9W1cSK5V70leg1rCSjb rQD3AXJxKiPvplflx9ab iBe5RMwkChlfTcXu CBXriQ52TMA7eE05Am90 kMDzgPJwo8hinMb5SqAc XGNgRUQ1eEjyIKdix3Ya CKSoU36ncJMaz8V5 IGNvbGxhcHNlOyBlbXB0 iC1jENcpfbzua4mumwpv Jvu1zk65tTRim5I7wLN5 M8YnruL2WBTgaJLd ZbjtpWBUbE9utvcet9ot tnxfQwPbEODaGZb3XNw6 IISnoFldHwQmQD40VOB9 XORwywJuV0MqCRQn cHupJcE4m7K1Kx4WE4ZD LegwF0SAMBTZCZdwoWM+ FI72tg56T7BbIwwdAnb8 DJKcRAY1dTQ2qP6j IQMnXZzft1C9nLY0G2Fa oaXqnd2xi1fyHVSwXAvd F50ieORdp9H4CZRotQV7 KBPndCrqFaKvsN10 Oyc+CFRhtQhjs5VuEnsx v8iyj6nctTh9JinjGTFp jtVhfSqqPJN4g1SdPz7z TXKevXL6rPC1mL1c KmNuCnN4FFjjX208QjUh wZYmEjqtI54aK0VxrPW+ UQAvPsl0ZQMwkImjTX0e R0NqGADizinmxYTg aMxmQB6uNLUppjyoNYDj tS4fXYYbR6q3QkXcBeI8 ROttO4OzCBBpwvrrMi17 fE5kNoBfZlA7TLmx S5QlvpA2HRJfdKCmBIsn YXH5J73gw8V9YFMvZIMi MBI3cBC0kR6dkEnfudiq bGVmdDsgdmVydGlj FWxgXOlhQ919UJYijFlx PkNvZGluZyBEYXRlOiAg MDMvMTgvMjAyNDwvdGQ+ LBYzKNT4tDpmBCYr kGReRBlxXu6fjYoobYui GO6uFIFaentmFJPzlW5h XLTovSQwpDkyXS8eJDZh akiks800LsBhUDC1 AOWasMUwN7MwrA3dJvIt EKXdDCMsG5KwyYBjCGcp A998UEcrRxJ2FJDfyrQn W0FbZMKiqNznQuU6 z5S1Dq5Yk6HymcuwC4Er iRRcIrRiTshbYWg4O5Gn PjwvdHI+LW85ZRUlPN47 OVm2WNT4hDwhJAyg OOHoY8JllJ5eBiQtLGUy ZGRkOyc+PHRhYmxlIHdp ZHRoPScxMDAlJyBzdHls HX5mSb6xCJThBTHd dMltwWGqOdFil2zdCZQq QMvmIU7rhEloT0KefMI1 GMKbj9q3Xv67C62vN0Ob dXA+CYFppHM0yGS2 iG0wOoKqItO9TSugF366 FjWcnQNcBshyi1wzb8au sDh3LeB2IHCrfeAdjXqd AQE2d0DuCr68T54p IHdpZHRoPSIxNSUiIHZh iZrska1jbM2nIh0+PGNv uPY1cPZ1nG0vXpVuNsB3 FPbyW250XaBckIXt Dfflx0rhf2gmvHh7KwPl TVVawmEgoKagAQN0n7Ol Rr54S6KnsHpjq5DbCqf9 kl30lWKld0N2aTI5 Q9JwOKVqzrwukKMjsJiy LR4vGBUronohGHTvhQ4a WUKpI4z7MoDuQgO3ADxy Y1XbceI8UXTbdHZo SWSuzULFyZ2wczjlx5yz wmtgYsVcSXUbJVl4TUx3 IQUonPvbTlYlJGF7MrV1 HZG6sLXlzZ5ocIch wjrogC6jLdo+UBM5tBSb yUPPHA2mSdaltZO+PHRk HXY2rRodADclVPDulZ7t LLOuP2p4TwMlNzS0 AZadS8KlaxD2WOEqwZTf GZEaiALDtC7zcalzg1mn jotaPeVaDOSyURo9VQa2 LWFsaWduOiBsZWZ0 DcY3UYU3sHHzaW2rkZit pogmfD2rVjj+QmlydGgg ELP0SQr6J4NvJvq1EUEw dXkjUX9hhSZgDDqk It0pbWfmkVeuHH7aDLYu oajmp843FjKpv0ivVGZt hMQbKIaiPJB1P77sz2M9 AEElSIJdRTA0qLJ7 kH6wrYomgxtnvKFgiBnx gpGnpArrEYilIJnxV507 VDUixTpgOeIrVKz6B6Bn Ajr5XXGifTrfUD1i lWBtGDubMf7rxQffgWwc LP3sLYNikmflp392ErIg v9cuQQVpbLUoPYioTUF8 V77yx9U3FFYuJDPl TSY8gMZ8qI7aiGmnvmcb bGVmdDsgdmVydGljYWwt FEphO912YMAuhFsnBvJs yXo1J4FwMqg3BIEd aZjjIP7gpYChDMrdSn9u vVdmcSgoUG6mDRDzmvmt g438CzTpg5irERTfsYVf EFvpBOU0R39ig0N4 RRJzFEQtDLR7gTR0yF1x bGlnbjogbGVmdDsgdmVy iJfnKStiSJvlV388NNCs cDsnPlBhdGllbnQg EFngTTr0D6VqFxwzrMQ+ EI19FCEfPP65xMSenIQm r1cwiNy2OcXnDUOsCIO3 dImzMNdkp5SsFRGg L56tkCHoj5W8ILHcnXsx rDKaWzImsCC5bY3dAYcj cffki0osbojoOfivo9im ht47oS08C69vYJxa ZHRoPSIzMCUiIHZhbGln gi0trV2mGg8+PGNvbCB3 sVT3mH8oWLXcAlT7LGfg R874WnAvmUDiGnek f3bte4kbiYf8HtA7DTOb vnEykUlsGEG1n1UiLs69 X05rEKblVJNwQKRaLEXr JRCcoChkhe0jwB6t Ii8+APWmlMQ8zTB2iM6r DtVmGfX9FBnhC991DoGr bSCcNtuyZ67eK6XstIN+ GXDgNll4OUZtwObo RN6liQYyASnsSn9hFEQ9 FvXkGxFeIEvnT4OjDXBe cktswhsbmOK0BOWuHZFd iW83Fr1vwNjvGKNe mZLEfY6ljgtlu7qclngo ZaOiGPTgRXj6AWt4KZXf rSvgPtUcTLE5DuQ9CVH3 tIZbrP3jwOlmdkue lB8gA9PvLKLzmvmkWe70 cQ2uAzKsNhH1TAqaTdc+ UkFUTElGRiwgREFXTiBN QVJJRTwvdGQ+PHRk KRI8bYvsDJdoUBWnrR0o ZLQyO6e7JjIwFnC9NByk N6NcBAZuoqqyWp53lY8q VkEsEyD2WUocU7Fi qwV3AEXfhSJjJYouSSY4 O05mm3U7WVPzYOBqLBY3 oDX3gF9mkVwqyudikZRs dDsgdmVydGljYWwt EKarX835KPVtlLprBgJj OrHhHkH8GOm2P0LyMjv8 UAEztJmyNT7uuLFgJEwq Pv8cgHtqjHafZT8z QPDgmwmcVCNvhP2cXKYz aEKdyHlfHU6wEZMudirs x692KkBoQLN0TWVnnDDp U5XmeU3cBtNoQRCr EUUxJ2VsfMYrWDvoS061 UHtwHrD1OGPehmEzP0Te VLQrfRuoPzN1f8H2Li6x NyBZZWFyczwvdGQ+ BYZsDWB6oBodOTfeXZNv lD3oBAAnB8j1JiOmZgZ3 WUaqB3PdETTdhsmnFz59 xT3fPrXkKuF6INla A2KypmM8WEGhgRGwULtu RYD5X16ee4L8ARGdXFRf FJZ0lVI4gO8ewFtjtegr bGVmdDsgdmVydGlj GJsfJZxsX684LMXiqMjo PkZFTUFMRTwvdGQ+PHRk AYQ3zAqyVJdeOSZcrS7q RGGfX4f8UbZmQtP7 RLcqS9QaPMWygpsyZf86 dV1lOcTmTbN7HCumW5Fq crI3DAZpyQLkQZfkSNI4 V08yi6Q0GTXvIOMm MLO1qUR7yQ0ooNpumnrr bGVmdDsgdmVydGljYWwt MZtkW435TVIfqYnfMnYw nCMZkMKgAIT3BL42 OB83I9GnKvqjqXFzuAT+ PHRhYmxlIHdpZHRoPScx JGGpGmBwrCoxSN3lCu1h ZGVyLWNvbGxhcHNl WdMfg9ivWGOvUPhcOF0t nQfyJ0GrhDO7OBGhc2u9 Hb32M64bB9RqkCQ+PGNv yCP7wWZ8dZ4gWbEn JmG3COtxV622QhDxoGSj Wvhha0lrq7mhzBn0AqJk ORGghyAmjJeaFTE4v5Xn Ph63X60yWDduZUYh ATUrYMXfKAUvmSqovp3q eR4kSl1+WTYxhLA2gRM7 fR1fCnPhUbM2BMgoQ474 AmIneQSoNclkC00l R2ZspNX+HRHpSwm4HPQe eRcwHT5qqYOqCDhiYh3x WCC8HtDsGoXdWDimK9Se ZGRpbmctcmlnaHQ6 ODRtBTVxnJ10Fh5twTsx Dx7zPWArWZP5YKPbiXUc B3UwqY2eFcZsJYYnEDHg J3QddBLaPLebF707 XIatQxX4CHJdjjSfJ7Eb RGCcaHqnCpO3u5P7Fm6C iBbwfMZnHN2wMhWkPRf5 J0RfTkz2TJEttGql SC6fbVRgTHydMh9jnAen tErbDV8vIEWjpvoys757 BxCzh7feOCJecHQoNMbc MZT2N72qm2I0HPSc FWMnXPU4iMG2vG9gwVil bjogbGVmdDsgdmVydGlj MAxxDWfkL794DASduAtw XlOPTjd8X5KuKaq7 GZAopUsbZT9jfGHbNAdk Ok3xvJpstXlvJQ2rYKSm nrnqf055IvVyx3gxMUSa fRTiURnxZVZ2Q35l a2Z4UOGxDHMgBJO8rIN6 rK4dzOuxzseijWXnzLfx buZrtDdkGGsjGTddD566 NVHlsWouRv0BFwv9 F8YxMzq5ZUBlbOpeOK6v yTOkJTjkNq3gpKixvMql EU8xQDHzwixzb762PoRy p3kiUGXzdFJkHEkh FQY9D13lb4Z6CUXoWOGr ULB1bAE2aM3ggWzgbaxo bGVmdDsgdmVydGljYWwt XAdlQ230SGEuxTar PlBheWVyOjwvdGQ+PC90 xx13X3NsKnynAny7RACz CDI7lRE4vT3nVUTmVOwb j6P7kTZ3O7GidqSe ci1 (more content not included)... [facility] Provider [facility] 12-29-2023 Provider Orders [id number] [email or web address] [facility] Progress Note - Nurseon 12-15 Progress Note - [facility] boyfriend. Pt has had no problems with catheter since we last saw her. Pt tolerates cath exchange today well (see BRIT), and was discharged to home with boyfriend. [Electronically Signed on: 12/28/2023 11:37 EDT] George Atwood RN [Verified on: 12/28/2023 11:37 EDT] George Atwood RN [facility] Coding Summaryon 12-01-2023 Coding Summary HTMLBase 64 FhaerxegCWp8zNr+PGhl YWQ+UQ9DHWUyA75xmMTz lK7nG2URVZvQQgxnXDVB BAdLIsCpbiFeWY5vbLTv ZXJu IC8+RV5xAIJgQxfblUYb u8Y6oXC9B71ycm5zOMew vSS7NOBgVxYeixhab9wv gIz7OLzlNqbtOfZb SVGzvO77LKZ7iJ16Up96 bDJpyYSxf0alfGf6FoCo IMLfEKL3xPomADcua7Ts RSZwY72jkRHcg0P5 IGNvbGxhcHNlOyBlbXB0 nB3uAXzzyqmhx9jxrgaw Dkt3ak51tDXxj0X0bTI7 W1VeycO1UBUlnIZo IipriIQYhF0pmwwrp2yy wxwbAkBnLMGoSBm4VCn9 NEPrdKiuZyOnWU28XXM3 DEJobcVtI5SvDPRy tPmlYeV7y0A0Ed1LQ0VE QtqcL9STOWZUPXocaYD+ JF64qc75Y2TmJynyXop0 HOYnDXS7aWB8dX4d GKFwMNpmg5R3kWN7V3Fr rdUzmu5tz3pmJPXsDRek N00jfSJep4G0UDSsgAR6 IFHkfXjzMyVsuI01 Oyc+GGLwiZaok3XxRdch n3dtx2cegYw1ZyrmMKOg mxWqbEemMDK4t5LyJb1z WQZwfJL5xPG2tQ4f OwUtCrL9QBfgE402QmIv mBCzEnauL79zK2OvvAE+ PWRdCvv7EYZxdNwxRR8y W9KlBFPahmssfXMl mFqhAD8wYPHwklpkHQKk zF7iZNFoK5o6ZlQcTtM2 VUcqU4GiHKSwteamHy91 xP4lQzPsYkP8SQif O2ToadK0KUVtbGZfSNgq MYE3T70lh4C7FCMjCGJc BXH0xVT5aS8ugRogwibh bGVmdDsgdmVydGlj ZTwqHLabB329KGCuoJdq PkNvZGluZyBEYXRlOiAg MDIvMTUvMjAyNDwvdGQ+ QFUeDIS1mTgcSXEy cGVqKFwwKq1jfXlebRhm RU4aAUQrzzkhPOGtaY9n UWOxaPMrtDazUF9xJRNe sqaxa672BaHzVPQ1 PIOcdLStH3MptY4wSmTe SJKxNCJmR4BgtFPcABmu I984CJarWrR5MTMbcyTe P3IqTZEumJuoXwC5 f8H7Kg0Tg3NktogqN5Fz xKSiOwRqVcxrKFs8W1Qx PjwvdHI+QC18FDUoBZ78 VHl0MNN3hHkoSRmt ROVvK6LsvV0bNyKaOHFx ZGRkOyc+PHRhYmxlIHdp ZHRoPScxMDAlJyBzdHls YM4lId3zRCFhARUa bAhgcSYoLlLyu1dnGMCh SXalEZ1rrVaaB9LqdHF0 JIVnv2h2Sh82Q24lP1Hf dXA+QWDdaVN6xAM1 gO3fPjEjVsK4JXyeU119 CzNasMXsRgaks7pgp3tx jTo7MaD8NYXlczDeiRav DTY4p6LePl77T32c IHdpZHRoPSIxNSUiIHZh nHvohl2spW4oEo0+PGNv uCC7mIB8dS7zYvUdLtF3 PHuaA173ZgVlyTMd Hvtua0due7wzbTp7EiWm SMCwnhCafYqhPWM1q2Dv Af20A6AyzUtjo5BwOuu4 ke79wAVop5I7iTM7 D4TtZNOpltkryLQzzJdb HX2eLQFbikmoVZUybX0l KQNaA0z7SxBsMyY7VVtw E1FffsU3ZWNiyGYc DCUwhIXXtS3cprncz3ml wzkhEqGbKIJtDGn2RHi4 TRGplVwkVkOcNUL2UzJ5 WRE9tQXtqY6tyNxx gxlsiV6aAqo+ZLQ8hPRg cWHCVD4uYenclMU+PHRk LGH5uMmkRYxwRZHztR1c AXJrF6o1TbBfLyG4 ZEijQ1TquzD0XMJlzTIq CTWwvCZTsY6hikhur5eb wfdjLmWcRVAnMZl4YPf3 LWFsaWduOiBsZWZ0 NmN5PJE9nPZukO6quRqm tfbtvP0gIeh+QmlydGgg PNT6WNl6Z2LsQnn1STAr iLwtXL0jqMJfLCih Sk4cuTbhuBebRG9mCOGr mwlco341CzEsf1lyMSNb bAYoCGceSHI5U71ra3R0 HOHtYVSdCXC5lHA9 kX7mjPdsjsamzIUviOee ccDpaGilEXasTSvuZ764 JLTgnFbvXmXaNId8M2Vb Ema0IXDkcBdfXI2q vKKrLSfxSv3atOxhfIfd VY8uABYflolqs644VmOn c3hpSQYauSUbVLntXUI1 T36xf4C2GSPsHNMc LUC7yZO4yB7taIyqboab bGVmdDsgdmVydGljYWwt ETzwF607ZOAvxBjgZlQm pEs1Z6NzGeh8PEUr bTjjWZ7fuZYoPJhtZc2n yMaqnMvrNU7sQTLkmcpc r724OcVwr7bsBFTmhNQt VWfcZOS4F66re6W0 QOTdFJFsGSJ3fAX4wH1r bGlnbjogbGVmdDsgdmVy xCepSTbmWBbaA382EKDy cDsnPlBhdGllbnQg NQleALl6K7AbLjyeeFE+ EK21AGZdCD14mTVqoUDp q8jnmJd4ToZhFLXvJQO0 oXjtORuuu6KeLCDy H46qkMUlj8N0NMLspOus mHYeHhYuyLP0lE3hIWeh nychz8rpdoleTeyjs2en nz86hO38J22xMPrh ZHRoPSIzMCUiIHZhbGln vp8zpA1wMi3+PGNvbCB3 fQF2rU6sQEQnTlS6ZIog Z850DsPfwSEyJbts r0wvu0ozrLt0JsV0SYIv fcXscOuaHRF4r9MvAz22 S42wMXvoAIZtXYKzSTPx BJOwkUldcu4maK1n Ii8+JIFzzDS1sBJ9mK4o KiKbVnW2MRjkW146VfRu cEMuIlhfD83vK4JbcZL+ BYObCyf2MCWanMej JB2nhBGwUGdfMa7zJCW5 WpDzWtAaSKsgH6KfUZDe pfayspqjgIA8GMPfJVMv fI44Wm0uoPxyXFBp uGJUiG4brhgtn6vxjpsz SbLuIPSyQAf5TCj7LEAw jQqzLaIkYUM4PjY0IPQ2 mXAgtM7mePgjdcnl dH6mH2UrMCThxjepWf29 bQ3tCxVfCkN5QXvoNkh+ UkFUTElGRiwgREFXTiBN QVJJRTwvdGQ+PHRk GHW2wLbnSRfaLMWcyN5b GNPpN9v0ZgCgUrC7MExi B9TqXVOdryjeEi65rY4c IyAfNxW4TSraC5Ir bxV8NGXboGCxWEvlHRK1 K06nb4Y3DRVhZUIjENX4 gBE8pM4hcDdnqdimdJGu dDsgdmVydGljYWwt WVabW483JZTymXabZlDr PmSkVeT5SSf1F5NwKpm7 NWNhgIefBY2dhHGnIOxa Ye1atSiypAgrTC3e EHUadtgvRUUzcV1lNBKh bOLrvZklYO1jGDYekyhh z613JmDqNDZ1RJMqgPHx J1FtvD2dGsPlVVVg OWVyP6SurEWfORogO407 MZsgJlK9CMEokbLyL9Ti LPNjjErfUnV9u3K6Jv8o NiBZZWFyczwvdGQ+ WKEaMOO2rDfySCszAXUp hZ2zYXKfL8b9HtDsCpH4 QXgyP7YxLNUxkpqeFk98 uW4vAxYxThQ4NPfo G9FczpP3OKKyxBZwXFer OPJ2W19kr3J9AJVnWMGp HXN7mEI2tD5xiFmiuonq bGVmdDsgdmVydGlj POwtNPwmR042NKCcuIqe PkZFTUFMRTwvdGQ+PHRk PMU5kGocEOkiNWTvxD1p YOSzY9r0SvLdEgU0 KVjrI6OzQRNzlogzFc30 gB6wEyTvXjL8JIpwM5Bj rcJ4ZDJssXFrFQguQJR2 K87oc9X8DIFlDTTr QWN4uKV8xT7wwMgfpcia bGVmdDsgdmVydGljYWwt GQwpJ429NSRouPmmZxDn eJTQfCGrRJF6VL71 VK24R0MdQhckwUMzeOL+ PHRhYmxlIHdpZHRoPScx XMYhCjZcePpdRM8bWk8g ZGVyLWNvbGxhcHNl YtZge0kgDOAgNBwnQI5i fWnhK7YgtLB2JAIve8n4 Os33D84iU0CpgBW+PGNv vHY8bRY3cZ2yPdMo LwY9PTybK794JzTxbMKt Xzjtd8ftf5eppQn4MdYe CXFloxRtaVskDNS6l8Zp Jn28F08nXPsgURSc ECSuZSInZETwhVzyea5n hU8eLr8+XTIrsKH3hIU9 pY0qRqVgMtF6PVakC468 HqKzlIQbLuvoG78r T2GphKW+YGXiZeb6VAXd iNjsDB8orDSqKRicOc3d UNR3BrKlJpAbCDkkX7Zp ZGRpbmctcmlnaHQ6 XQUiNPPqaU90Ok7psDzg Ps3mMOVdNBA3QBLhxTCk R6CtxG9iVtQhEAYfWXHi Q4WmyIWkHUivL284 ZTziEaH4EHVgjdNhR1Xc FCOveUqmFdL4v6S9Nb9I zXzrnJElXY9wInQcJBs5 Y1LfJlo9JUBqlDhd RH9raOXqEYgoLd1egDke gVswDQ2qWFOxrhtbh013 VoWir6pbFURktXSqDSbp CHS1R68ud7A9NSPk GAQyNQW3bXT3lD1yoTfk bjogbGVmdDsgdmVydGlj YRctFVdhJ690AFTxpGdw LuPYYhy0C5GqPky7 LFQhcTriUV1wlVXbXMua Ii6tgAjvuDwuQF7nYKDu mkwmt851AyOvt8upYWFg yWWhKNaeCYR1N35t r2H2NZJrZAFfJRL3lMH1 yH2rdFfbyoluuUCulPbk buRxnPxuDOcpHZodT321 HPVzyAnkDu7GBaj6 P8KxBwn8AWRreVrkWU1n hNGpCKahUm0goEaluOxc CI4sQENzqhcol444CmHc z8maHSBhdFRhDYld AQC4X97ul8J3ICHrARRi JFY7oSW9nW0mzQxguocd bGVmdDsgdmVydGljYWwt TEjnX191TNNhoNuo PlBheWVyOjwvdGQ+PC90 kl05R5UhMunrKgm7FFLp EHF7bML5aK4oJIUmSEbq t2Q1pLT9U0RlfjDt ci1 (more content not included)... [facility] Provider [facility] 12-01-2023 Provider Orders [id number]# 1.00OTGTIFF [facility] Coding Summaryon 11-03-2023 Coding Summary HTMLBase 64 RvasdinwXWv2pQt+PGhl YWQ+NM1BLKSoZ09brGOu cV3nT0SEKGvKGfzpUFAB CHdXMiKsxiLmWO6lrVLp ZXJu IC8+YC9kKUEtVsqthNAg k7C9iIV6K67myb6mWNdj fNP3XFVjRpArwnetd5mw hDn7HNnvSojzEsWq QDCixR42RPT2aL60Rw85 bNMsnNPsb0pgfUq2UoCv WNMqRFT1aGivQJciq4Ch QWJuQ24viHCin8Y6 IGNvbGxhcHNlOyBlbXB0 oM6jZXclihedt1cfiyrg Muc9sj38cLHut7Q5lDG0 F2MfuzV7HBIroTBp AlkucEAMzN2vhpgvk3qy afetStFfXJHnSAt0MFy1 YYRsaSodTgIlCP63EPV5 YUBepnXtD3LnPJQy hKwrUvB0m3V9Dl4NS3JH HugrO7INFNDEIUticTG+ FE38yr95C3YoZvigTot6 JEFbMWL3fSS8mL1m MQGlVJsbw5Z9cES1J5So ulOzlu1us2inWMRnCIkp P91ttVAyq1H6LUSefJL1 CHGhwZmkLuEwmV51 Oyc+PLYavFinq1ZbAzuv t9svg8sttRl1HjknOKWc isEmyBjcXIE6s3QuDa0j VBJjvGG7yHK5cY1g VvBeAgZ4CKwyT330TeNo lRPpDjpdZ28uQ5XbaWE+ ZGKsRdc7OBMflDygCI1k I4GcREPpkqahfHFb bHqoWJ0wCNHasocbEORv qD9aJCDvR2o7UyWfKcG9 OIhqN9IvSGLteutwEm12 bR2lTcEcNnF9XYmw V2FwivP6WJSbnYZqSEcf XQN0J26ey5I8VNXaWMAp HQM7hYX3sC1qmDsewkms bGVmdDsgdmVydGlj QCbbSMhtY312ANCksAuf PkNvZGluZyBEYXRlOiAg MDEvMTgvMjAyNDwvdGQ+ BAKcFKA5zGweFHVt rIIcSDcwQe4feLbbiAui SV9hLBCsbecnFKOzsL7o TASpnMGqbSllNF8kCETw idamx015XlHiDXU6 VVZvbDVjR5EhxX9gVqMb XQBqDIMxO1BxgPVgAEgw V791RYpfHkB6PFRalmNh S9KaXDUheQemKpW9 r4D4Mi5Xs7PxzxavV5Lh tLCeSlYgPmnbRLw0Z5Mu PjwvdHI+ZD10GWBuJD16 BTl9MVB7fMcvNUyp GKPlO7HdmT5pGuLxKAFa ZGRkOyc+PHRhYmxlIHdp ZHRoPScxMDAlJyBzdHls ZY7oHq9nKMDxZZJa sIjnuWIzRuDjo3joOANb BJpjZX1jzRjyA9QmuIF9 NJMnz3i2Dw77Z97hI9Rn dXA+VOYdqSS7rFF0 qD4fVoWtWkC4XGugL574 VcXprWAvAtcfh1jfi2ym aDf7LeK2UNFqamXjhOrg BFP7w9RgVg06T84i IHdpZHRoPSIxNSUiIHZh dYskyo8fbS7cZc7+PGNv zAL2lXK3eC3sIxIzUfR4 EGxbC685OjQeeZOv Mttps7jqr2kitZk2AuRw PXCvmqQbfTcsMKB5v1Jt Ux12J4XmcQdeq1IkXfg8 av15zAJlz7O1tOF9 E3LsWMSszlfonCQrzOli GM4eVPJexpoyHCNhmB0m JUIzI8l9WyIkIzV7NPpm E9MoqtN0MJZnjIPx JFQbnKXXpA5hagwbb6zt xaolWjLqMXKpGLo3DXc0 DDBifDadZnXkCUU2ViK7 TXS6oJHtdC9liBbh lrhneZ1nKbv+SIS3dEIj nANTLE4lUmmyqTS+PHRk GSA9tElxYXmzBAArzF6h TYXrX5f4DtJhQuA1 ZJazY5RntxD8FAVykQZy QIUwmRSJrY0gtwxrg7tx yeohBsSjGBPyGGl5JTb7 LWFsaWduOiBsZWZ0 NjZ5RAG4vGMzkS6poLep tkbwmP9qSud+QmlydGgg YBA9SRy2C5LeOnt3JMJz iYqwDE6diVKeWKsf Dn3kkMjxcWdiDI7dDAQk qsplg149GyOze9weJIQh kCWyQQzgZYO5R51yr9J6 EMUtWYOtHXC8nKO0 jL3jwYkhfcheaGVddZgp fcLraDaeYShmOPkxS857 QSQwdIytFvGvIJd8F1Yj Aya1GCXnfXgaPK4m jNKgXCjiOy3suWyqmVoq EV3mALHfmokdr606YmOt p9dzBPBghQKbIBsiCKT5 I37tm3K3QBQnOTPf GCU6mPG6zN6tvBetmlck bGVmdDsgdmVydGljYWwt RIubH986GNRbdZmoLaNp kIq3B0MaZpb0PVZr iFfbMY3spGCdAYsxQj3z oHgtuZaoVZ7dAMAkidfm x728RmIla6toEQSivZQt GPeaUXV3M79lo7Y4 QWHkNJOoVNQ2hKP4xR4t bGlnbjogbGVmdDsgdmVy uLfsWXgiJQplQ568BMVh cDsnPlBhdGllbnQg PVoeBCs1W9FtGjbddBV+ LV36GGNhOQ81wWJeqSVf u9ukiDp3YmJjOCZkXEU3 nEhoCQzil4SyRROr D74yfCFsz8B3SPKfqBnr bENxCcHzpJE6eB8sWEsn hqhgi1bslyalMnjvc4uw jj79uP28T95iQYqz ZHRoPSIzMCUiIHZhbGln vt4enB8lSs9+PGNvbCB3 tRP8wV0lVJBdElN1HBkj T656MoToxIUdGkbl a4gjx7xlpDq3YdV8QDLl pjFlmNjbZMS0g5RbEj59 C65rBBjgVWXqKQGgMHTb FKBxwAstfh0vsL1j Ii8+GDKgbME3oGJ7xN0d AwBbUjY5XKwwP005ZmSn pZKrPenfL12rY3VrbNL+ ECYnIin2AFXlmUxx SF7vePQxOEbuAi7bXLR2 ViDrTnReMThyT8DlRVOw edolgoejeZW6USDxLOBo rP71Lt8vuQpqFKKj aZMZbZ2fmxiwg9gdixil YuKnYUIiYZb0FPb6SCRt tBuuJqGzJYE5TcT3TVG0 oJVisU8ylPnzpwze oK5eM2ZjVAKyyvfmWk38 gB3mMrMcYxI4YBtvMts+ UkFUTElGRiwgREFXTiBN QVJJRTwvdGQ+PHRk WRR4aLogSUuiPVYiaH2z TMKvQ1l9EsJjAxR6MEoo H8PcMYAfdeihCa77tU1k AuDpOnS1DKlfB1Gw njK6EBYlvJZsACxyISF2 N01jm7P3SVIpGPZeLRS0 tAO5aG4whAloenccyUSe dDsgdmVydGljYWwt FYwwW356VJKcdRhzRdEo IjVvWtW5LDh1Y6MwAbr7 ONNnhPlhQR7miDMdNUfa Bf0yeRjejOozKI6k CZCydlxlZGUftV9yIJNb gGFclPviZN8uGKQkqhrk k329ApSyVIR1ASEqsBVn M4RhfV0sLmLkDYJf OFGwJ3JjmUVhMMpdU890 NFpqRlF9BYGezcVhY8Uz PJBkzVqsBtQ8q2P7Se0k NiBZZWFyczwvdGQ+ FIFjYWN3yQiyBNsuPEYi pE4aPHKyA4n0GyRsHkW7 PTucF1IcSVJunwjmJx57 tK4sNbIlUsS4NKlp J1NoypI4PZDmgBEpIBkb KQR2F64zu0R0CESxWUTs EZN0yRC4cE7opPsmlftp bGVmdDsgdmVydGlj HOuqNKfpU145XZWpbVjc PkZFTUFMRTwvdGQ+PHRk ILI1hQczUImcVOQbwP9c HBAnI1f1PkEoHqP6 DOddF3CpDDDyfnfzKy85 aI7oYuUwPqD3ZWqbZ4Rf zqZ1UHQgvSGyXUnjLZU9 Q74wa9O8VZRwVMJr UJA8nSB7dC5dhSamniqd bGVmdDsgdmVydGljYWwt BAbzT633URBroNbfVqTm pRHAvYKqLIU7NA41 LV66P0YnSidcqASwtLB+ PHRhYmxlIHdpZHRoPScx IGFzEeCnxYdqWD1jTq5o ZGVyLWNvbGxhcHNl RgVle5ajOEXjENprLF0n hBmgV2MjgAC4RMZoz6w0 Xw05K42eU7RvnYC+PGNv kSV5zDR9lE5fNnBj GqM3EAnqJ820HnPiaWVg Gzyyt3gvc8tudPo9JqGn WNQrgiBmqFatKGE4u0Fa Tq36C82uDQtrGXSd EGMfMGLvDBOroPfnij5c dN2yBn6+TBMzaKR6lHI2 bQ3yHuXnRqT6QDckP680 AqRmuBYeGbgdF00t Z2KfoLQ+BNYwIsr7DLIm qOtpGE8xsPXaNSfuHj7q BRG5GtLlTcQqNDblP1Ob ZGRpbmctcmlnaHQ6 QMKsYPOyeE30Jr3vlNkv Qd3aCXBvZTI5EAPdrLCu J6KibA6tUsTnRGMyDQRz O4BpfRUeJFbtD209 URobTtR6PVUnhcEoK9Ze BQRjvJlcXuT1s8P3Lv6G rAxtmVPvDH4oBzGdAGk3 O8BzVvi3BDZtzFyy FD9njURpABtcYm1dtFbf jStsFX2xGUOyslawn468 HoWmb6xqERHxyYTxRYsh UFE7N25gt3T7NNWf NHFtJMF1pMY4oR7nbGnq bjogbGVmdDsgdmVydGlj ZNfaXAclG164TDRbfUiz RsKNDyy0B1NyBff5 QSRgpQdbTF9hbCGfIMev Ur5pwZdjzGcdAM8sURSp qrekd016PxSht6ztJWDf oREhFNaaYMD7D19v f6L9ZBGlSAEcUSC7qXN2 dT1odNlewckamVMknOmq ffAmyFbvUAboWPjeA514 ZEJvmSbsHi7EFuw6 M5KqBlz8RFGbpSfjNJ8e sRFeNHjqEq9nqYizpCpf HI5xZZPykdrhh359WdFh e5xcAXWnwJLjOQvo ZYV9J56gc3R2JACtFOAt HEH0wMN8sO9wgBbwkpaa bGVmdDsgdmVydGljYWwt IBwkJ173QZTygFuk PlBheWVyOjwvdGQ+PC90 hb79A8SvSmjaFrm4FSDg UED5kHJ1bN5xOPXmAEmb q2L6tEO3R6XoueVa ci1 (more content not included)... [facility] 11-03-2023 Provider Orders [id number]# 1.00OTGTIFF [facility] Progress Note - Nurseon 10-17 Progress [...] on: 11/02/2023 12:31 EST] Leora Malone RN [facility] Coding Summaryon 10-06-2023 Coding Summary HTMLBase 64 GtgsbruxUPu0zXq+PGhl YWQ+OL9WFYAoC91qzPKe zW7kW6QXTJtVJhpsFCIC MMzAThMcagIeCX9gcDAt ZXJu IC8+QB2gGZVfTrewjYNj b7F4yZA4J23gzo5gEWpl qCH8MDNdJrMlrbyxt1tq hBl7XAnpJnkkXuKq MCLdnS45BSR3nG17Kf85 rHFnmHOol1wvtDh9UhUv URGtXRQ7xYsxASahj9Cq GQWrP59kaHCuq6B1 IGNvbGxhcHNlOyBlbXB0 oY0hCOyjtcvsy3rlbzpy Gvi4qk44rARvu4R9cRW1 A0YpozA2PRZynDTu YzceyOQCtG0tvmcvd8zq pcnbOdTpYRAaQSw4XQg4 UHDbxOpqPuTfQZ15BTO3 JOEkpkWoP4PwIOPr wOfmCkQ8o9N1Xc8EM7FY RlucZ6TIRDUVSUcivGJ+ UH48ft38J2CzNicxAfj3 UIRdELE7uEV2mO3e NWLqUZifh9B3oVW9B0Uf poFsbh4bn2fiMJDmVUjb C99xvSVdi5X1UXTeiZF1 KKQuzHhbVwWwqX71 Oyc+HKBryQjwj3HbPgnr l1blr6wwtZc9QcvaTBVx zlHldQhpIGH8e6XpYv0i SFAcsFB0uJR7rT5s PwAeVdD7TCgjH467OtDh gTMeQjraL03oO3MwrLT+ NROuQiu8VSYblPdxOT9o E5XzGJIglrhibNUh pPgbFJ5rZSYsrvldQZHe hH6kBUQwT1y3KtSpMeS1 YNljN4KsJBIktdbpYz67 cC8zUxLxGyS9PYlh B2LmveT5IZIzpDEvMCsq SJT1X08dp5T1RZQbPPEy DBG1dDR6cC7ywMatohsz bGVmdDsgdmVydGlj DGkeGWoaF776NWFanGhs PkNvZGluZyBEYXRlOiAg MTIvMjEvMjAyMzwvdGQ+ QMWoWLO6nUkgPIEy bBAyRXclCt5jeZjnvSvp IH0hXEBscsesMOHkyL7v TVPddQWniHoyLN1oDCOu qejop758NmJnTHD8 WBUatJFiE0XocV9yZmTy CRLpFYPrU2AjxBMpFYea L800PDarYmL9HUFlqaFf C1AoGNDcbAapZgY0 r4L3Ji4Ol9EnksyrY0Mm rDHcHsNwAkbgIQv1K7Tz PjwvdHI+SZ34MQDjKR34 FBq1VSB4xPwkZXmt EEXfY9ScfN7aAyLdNSFv ZGRkOyc+PHRhYmxlIHdp ZHRoPScxMDAlJyBzdHls DT3uPs1uFEEcVVXb oMzudCDdPnWqg4bsBZKv PLsjQA4crWoiL4DdrYK2 BWNnj7t4Qf08F10qL2El dXA+QRAqcON4gQY6 dA3iXoUlMxB5GAtnK093 YcAwiOBrRrhsc9qhf0js vMc8ZgT8YTRfcfJnfKfj JSM6t9HbQg08D67b IHdpZHRoPSIxNSUiIHZh jWkbpk1wzR9pFd5+PGNv lJK0zKZ3rN4xFqLjNtK3 MRqcR762FkSqxTHi Luhid3qpy1zuyHa1SsIp OARkrsFwcMybBWJ3a3Jl Eg08V9QxgMnhp6HtCow4 ku36iCXqv9X8tUQ5 G3HuEOBaqtodjWXuaUmm HY5rFBRjkevxLRYmxA6r LNIfK4j9KvSiHfO0FCxq E3CtodG7GUBkhBCe AHLzfZLLeL5ltwdwa6nx xigyLnGbPVFwAZu1CVw0 HWShjTkxPhXnUSC8ZpB5 JXV6qPEnqW0ceMaj dicjrK9jQlw+RPW4yGVb qDOAGJ8dJnzcxOY+PHRk GQY7zJzxSEtzAZHpbU9k TOGoW4z8NcYkTmT4 ZKfsS8EcjkK6BIQvvDNu VQSydWCUhU5cdpgck9se rtmqXvRgZJIrYCl3VNo5 LWFsaWduOiBsZWZ0 DtC5AKC8pYNpdN5vlIwf smtkwO7fObo+QmlydGgg KOH6ZGc8L2OgGam2OJUu jLpvZS5kcIStQLga Uf3xdBdhyEcdMZ6sCBDo lmvef921MwRxu1ojXHFy aCLnWTxjHWF4E26rv2J5 FVVnUTQcRON8dYU2 zI4ejBslxfzcwJSeaVio pvDyrDwpLRikHEhuM913 KVArbIzdSdQmRLn6H7Hq Jgo0EBEfmPpuCP7z sNAnFJsiHw6pjLfbgOed HB7qVMCwxxdce601JbGp d2bdWEObaQIoDRzwNRX9 K88wc3I5IJChAXPp MOE0iDG9cZ5liGmfmvwl bGVmdDsgdmVydGljYWwt UKwwI113XSCqcVjjFlVs xTh2N9OzTyp3XVXg jMoqDQ2xgWDdLLlvRa8d vBglvKbnHH2jBCYqlmog c287JyGku0keEIZixXSc CKigJBE3H48hv4B8 WUCcNHFoXJM0mAV4dJ0n bGlnbjogbGVmdDsgdmVy wMgfONrwHZydH733CCUl cDsnPlBhdGllbnQg WHfeBSd9O3DbQmjceCY+ ZZ66FXEuGC49aUJhsXFx w3kdxEi0SmJvSKNkXPR9 vUhfQOzhg7HbEIHg Y71asMMzf1Z8CVVcoCws bHKpVzYigGQ3vD1uLMzx txhds5ygzmzyPvtvr9gg eq17aV60P05dWUmo ZHRoPSIzMCUiIHZhbGln ol3zfZ6wLz1+PGNvbCB3 lPJ9aA1mVWNeMeK1WIri E623DwKfwFKeEzbp e5euw7inrMj8TmR8ECDt huKttBlyYRY3s1MjOb99 D38pYLokURGrTGJkZXNu QOLheHfrlq5txQ6t Ii8+NHZgnXO0xVB5bV0b VlYhLsT3ALwbD359QzHn oXZnPqhsM37mP4XzrSZ+ WKPrHjh7LEEuaNgj CS4jeRSlHXdhRq1pNBU0 BlQlVcHhTOraP8PjWOQi gkgxsfvhpBR0XHPjHJAr tI14Mz9fyMvlEMGj oCCBnE0bfdhwi3lqsdbd DpKnUVGcEYd6IZx9SMDx wXofGpCfSUL8PiD6QNB3 pFEupD1vkDjcgrjp qW8lE5NbZRPbgpxyMo36 fK7fPsHpPiP6QIjwBed+ UkFUTElGRiwgREFXTiBN QVJJRTwvdGQ+PHRk AUL7bWljFPlrRPDxwK8z JVUhQ1o6EqSqUbF4VTny D5LzEFEgplghAg97sP0s HeXnJpC7UYrtC0Uf qpY1FDSkpTGbVYsuOMT1 N63at1L7QJCeMRVmXFO2 gMW2wT4qlSylgwswuWUo dDsgdmVydGljYWwt DZzmF424NLCqpEjoNgNa WwOxNrC5GGd3I3AiEnw5 CFDllMsfTV7fjNAhNBwf Dy8teHwarEvnVY9u LMHkhefaUOQkfG8mPTZs vVFqzMaiEB0eWQAnzbjt n730TgLmRIO2WCFkxJAf F2BrjF4mFrAgQTSl TBSkJ6KqtVBjUYrzV975 KIxaVaD9OBVtypQvN0Yt RTDbxPgvXsZ8f7X8Gl9h NiBZZWFyczwvdGQ+ ZKArWCB0oYrpLQlyRQPr gD6tYINvP8m8MhNdIvN9 OZjyC4YvBHRytipsEw09 jT3bAwDzPpP0LBqn B7KqxqZ9WHXfaXFeIHqn ZIK5Z32xd1I0LVAlXLAd GWO1bEI7jA5xoGywxikq bGVmdDsgdmVydGlj AQmuPSyaA126GIHpiFbw PkZFTUFMRTwvdGQ+PHRk GEC0eZkuEClhTQNhmA1w MSCuU7k5VxWoViY6 MZrsN4QqXGKqjdzhFo02 cW5yYcIsZtU2QQvmV3My xuB2KXDifSNwIVdjHLI7 N37gv5E8NUZgCBKl EMO1tSD0fX2fvTffqumv bGVmdDsgdmVydGljYWwt XRpjI603ZODahZzoYtMg lVBEzMVdKUK1WS41 TG86L1KxWssytVMhiJJ+ PHRhYmxlIHdpZHRoPScx TTJkXdOlzVpcHQ2tNv2f ZGVyLWNvbGxhcHNl NjUyd4nuOHCnUMpsQU7y uIqvC7DwpWY0BGJzv9b5 Gw32U05iX4LizIH+PGNv tNQ1iZF7aE3oIpRr WeA0UVqoX184DqCjoVIq Vuxer5ebn9kthDr7PhDn RQRyzzJhzZotLXP4e0Eq Sj13Y27xDEerIIHa JSYcEASlLUWdzXtqeo3f hN7cWg3+BKZxiDD7vFG5 oR5yHsRkEyL2PKfeS748 XlOsfSBuMqmaO70d T9CxsVU+TLXmQdg8UIBo mZofNG9kiINoCImnQy6o ETK9LaAfEfEdCYvnC9De ZGRpbmctcmlnaHQ6 WSFjMUDucK20Xz0ykXtv Lh9xKVOcVXT9TOToeWAa T4LkqY3tZrEuFKTcESYq B4SubKCfCGixM014 BXfsGsC5WUKfsiPzS7Th CCBguExjEjD2a0W9Yc4D xAhlqLGzYC6pXxJoPLy5 P6DaHyw3ZCFviXeg YX1xgMSqXFabKu0feHwb bKsjFA9vLWVybcfyi601 FgQgn4ewOXBadIVtJVvu DUQ8N77pj0O2SFLs GNDkDAO3tCT1yJ3uvCmb bjogbGVmdDsgdmVydGlj IDemQRadV764JKMepOpo LiWWPzo9A4NeGbv2 VJMssGtwPH8zdSYiHWnp At6nkZnnxAcpOC7aTDOl jaeie567MpEsd0laESGo iRAyAUoaNOH5L26q f6W1SIJcFAUtUOJ5lMW1 kE5deYmxaqsoyKMtfLdg ziDzgYbuLJkqPJmaT278 PSOpzTcbHk5GIie2 X8JfFul9ZWRzuOrqDC0n hTKoMTeeWj8phDsvqOdh LX3kDZFtrnqsc467LqWl t3xdVHMelQItBRiz MTW1T59yq4R6HELbYMHb NCR5sPO3kE7btCbrqxyd bGVmdDsgdmVydGljYWwt ALnpK928UGHegLcm PlBheWVyOjwvdGQ+PC90 zb53S2UkFpviDpi4CJAj YET8jNE0rG5wVZNeTJrh q8Y6wGA3Z8QknzIe ci1 (more content not included)... [facility] Provider [facility] 10-06-2023 Provider Orders [id number] #1.00OTGTIFF [facility] Coding Summaryon 09-27-2023 Coding Summary HTMLBase 64 HpqqkeyvDBk1dWn+PGhl YWQ+XD7MXSDtU46zuWWq bN3hQ5ELSQdKRiuoWMRG WMgKVvShrcDjBP7rqHCr ZXJu IC8+ZG7hNIFvOtgnmNNi h9Y3lBA9G82bjy4zFMwe pEU6DGVjPgZbzfqbd0ne xRy3MMyjOueoFmUv MSSxdO14HPQ9pY66Pc84 tWVkkLKxf7imhAf5ZsBy WTQsICP2oPfbXWjqc1Yj JNNdG19jzOHyt8U6 IGNvbGxhcHNlOyBlbXB0 qB7aDFeqayjbr6mefcvy Xsc9fj91uCZnu8F0xGV0 S9DhelY7UNXycOLl XdkgeLTPrM7aupykp6sz oqazFoXyZMWkBBg4YMw5 GZZfySubZrOgKF42UJX0 OLPrhnYbL5NjFWGj mRavYhE9l4A4Wx6CM1KE EnybF2FLHCHFHKvnwGK+ NR63fe59C8VeQsrvBpp8 PWPmTCA8qQN0bZ2r WQHeQQjdf0Q1uHA5X5Ez eiIxpb5iw8fsFENyBOdh N06kdWLqy9W0RRWugVH0 KPFbiLhuJoJxcY83 Oyc+MZMrzVdvb5UcAhde n7zjv1pieAq1YjyfIGIo zrYffMmeHLW6p1KzRw7o LZLizPN1yAA7aX1n HcDfCzL1DHloG828CgNo iAXjJauqK00uH0LvmDL+ FUAkQbe9YGZepYtxFO8r O7KzRLFiwwazzFVf tNtrEX6iWRMqmmdoCRNj iF0uXQKjW8u2VaYrSeP6 EOlcC1EbGLHnvovjJh02 fP0rMbVnAfA8UIdu N1DovcZ1OLYqmILaZPqj VHI7E72ob4K3AGTnLSDw URR2iSJ1oS0ueQqcjrrp bGVmdDsgdmVydGlj WIlsDRytA853XURmwNll PkNvZGluZyBEYXRlOiAg MTIvMTIvMjAyMzwvdGQ+ ZCPlMXR7eAmhQNZx fMApOAokFf3xoSdcjRsl ZE2jMULccgpaEAZozJ2x NENwkYIwrNliXL4rNCVr ujvfy025JhEvHPB0 HGAwqWOdO8VhsB6tYzMx DDUcOABbL2EvpFOqBDee V313VAgdRvL6FCJejcCj V1UeSQMrzOpwEtF2 q3L3Ux1Nh6ShxvauR1Ut eJGcZdKoUcpiZUk5U6Sb PjwvdHI+CG84CNKyHG71 KOk3ADE0jCztSXbb HAWyD9YzwR8jIxOpUCJk ZGRkOyc+PHRhYmxlIHdp ZHRoPScxMDAlJyBzdHls HS6eGa4vXEGrQNSu jLunyMPlCiGoh8jvEYJc HSldEJ1nuKghG2EtfSR9 DPWrg5e8Am82E92mX3Ui dXA+ITSljQV5yMV1 dZ8uEcIgPqM8QHmjW885 EiSquSInBckjo3ves6nh fLa8VbM6DBStkcJsyBra HFO4a8LxFy48L97t IHdpZHRoPSIxNSUiIHZh aQdeds3nbR4tKy6+PGNv lUK6kZW1fO2yLyGoPhC9 DCrtK739YpNnkGEx Hrpft8rqj7kcvTz9RuIm ZWBvbrBsaNrhBHF8q0Sa Ky73H2PzmJagm0AnSdc5 eh03jUQhf4U5xEF4 P3FkUMXifsplgNWkxTqo UE1iBECpjqskGRQrmP2b DFVnM6z1DdRqFzW9SZpt L9KumyS2MOXpvTLc OTBnnEQEzH1kqdtjo4fv sctdPhWbAQKsWIs1JUl6 VNPjhPwlExXwHMG6LkV7 WHF2xGAqlP8mfWcv dchlaV0fUcu+WXI1vYGg oVCCWH5eBdnjhTH+PHRk BLB4kSwrWJigVMFsrT8y TFOiL8q5MvObLwM7 JCauJ4FasxF2GPLtbMKu LBThkGVHkU9xcyzts6bd oqepRnDqRLBnZDy1JQm6 LWFsaWduOiBsZWZ0 FdP9SEO3xXEzsC2chGla lxkpiP9vBuv+QmlydGgg ADY7LVt7E2PpXma6OVPg fNkpJX4ibCQvOWcv Cz4xoZfrwPgyQI3mYHTm jgoll069UePda7teKKTu tLWxHDwkSFL0A10bb7M0 LMFnCFQxEVK4gQG1 cW7xkGafpopmlFRgbMix pkAxzMynLDqhEFerL991 MHEmrMfnXtYsMIw6B3Mk Uun2MEEmaCtfUQ6q zYPoVWtwLd6ahVyutHrd LN1xMBYdvjhlb477SePl p3rfQGBdeXMcYQggRTO6 M75ng1Q1PAIqELQr BIE5oJA1bM7hqCbhbmzp bGVmdDsgdmVydGljYWwt KVyeC027MXBmvOubRsAu iKq7Z4WjKqe2KBCv nBciXA4fqVUhBNlfRl6h gNhjzVrxOI0lRHSxfjxu g254ZzLmb8ydQPKclTVu UNvpJCF0C26jd9J9 FZNpUFSjZFR6nYS5qF8j bGlnbjogbGVmdDsgdmVy fXbuSMmcZIdrH809WMJq cDsnPlBhdGllbnQg WHanMHx1F0UeFwjxiPG+ HI00SYEcZI33vWBbzLTv x3hlmFx5VlFxHHExXFQ0 xGbqBSztr6NoWINq F11dwPCfs8G2QUGfyIcw cUMjFkEktID8pT8yLFao ozbod9tuvadnFnumy8rq bk37oX96X44pGNxw ZHRoPSIzMCUiIHZhbGln gv6jdZ7iTe4+PGNvbCB3 yCI8xC6wLRCmSmK5ESqz L507WgDjrMBpModg w5fcs6ukxCq7FoG0JZIu brVvfXtaISG1a9XoJf81 F60yFVweEHPyZTZvWSPx PMStpAuagd1rrB9k Ii8+YABvuPC6rSF8dU1q HsDgUvZ2DVenG969HeLi vSUvIiumW34cN7TatXN+ NCQjQxs6TEHqeUls DC7ggOAwSIsxNo7bBED6 LqCqNdGnTOcaG8KrDPCs mlbhljkmfFE8XFCyIEUj mC27Hw3slYlpBQTy uBGLzW1iaeasd1dhyfjw EmUnTFMuYZt8IAj6YMLj bTxbVcAbMZB3NqI8TGT1 bTMnpB6wtRdyfkss vH4fC8UwFAQyzbcqCe18 tC5sMnOaBvH7CWumPfr+ UkFUTElGRiwgREFXTiBN QVJJRTwvdGQ+PHRk BXS4zMbkQJqmOHXwpS0f PLJbL0a2DoDdQsV4LXfi Y8OqFLWqjccsVb66mR1k XbWhWkL2HHuyL7Zb meF9EAXwpIVvJCnsGXY4 K81ee1W9MDDpSLPgDFI5 zKR6qG4caPrkwqdmeEHi dDsgdmVydGljYWwt KNpdF471SMVqoZdwBoQf PpGwBbA9EJk7S0ScFkd6 FETdrFipTL6gyMErCYof Ei8daJcfaTmiQD9c LVCjcxouICQbhX2wCYGe oLVupGqfLB0hKROwzldi y600WcTuDBI0FEZrhIPj Z9CxxD6gTzQtLEAp KPCuW1LeyIXzWRudA948 VSyzNtB1HAIrnwMaP6Rp WWJdhZsjQfP2r4J3Zn9i NiBZZWFyczwvdGQ+ PSVsAYY5hIxeHHghVUIz sP3zXETcS6f3FcMmEiT4 NOocJ9OaVUZrqlnlLp80 yW1jLjNwNzO2GUzl V3XuymF8JXDskYRsJWqj DFJ8H12iy2H3INXqMFUy ONA7fKQ3gP0uyNgfjqiu bGVmdDsgdmVydGlj SFsaYGwpY527JKSnbWed PkZFTUFMRTwvdGQ+PHRk NWG3jKvyAVrrIGLckF2q KQGyD8d2PwFyEpJ5 FHgpS6TlJQWlgfbaPs85 xX5uNjEyKrT6UVjeG7To lqC4CVOxiATxYWeeXVJ2 H85di9V6FTNcTTLn QOX0mPH2xR7dhWvcmerj bGVmdDsgdmVydGljYWwt JRgeW413ZOZyuVtkUaEz fZRCnJFyEFQ5QR94 NX42L9EjHrvumSGudQC+ PHRhYmxlIHdpZHRoPScx XGOvOgAoxEuyAR0jWv8c ZGVyLWNvbGxhcHNl JnDlu4ahCYBhNPrwGV6s iNtqH7HrhCP4ELOpp2n5 Et21H95fM0FkxTA+PGNv mVR0pLW5cE6hCjFq IaN4GSblL012VnUsfICx Mnail3mwd0dnvIj4FsGh YANuvjUjzMpvZQN1k6Py Du29A82bHLigHHIu XBTwKJZlAUGwnIcetf8h uY2lCe2+RUYxcBQ1tZG8 zT8aMsMmVrJ0XEwfJ440 MpYvtALhVkglS47x L0LryYI+DNKvDqf1IGNf dSalHT9asXDfVQeiOp0p KXK1CwZdTjZpKQspS4Qr ZGRpbmctcmlnaHQ6 LEIvDCBqyW33Uh0irKdt Wf6nSYYuSAK7XLLklEBj F0OltR3fMlBuRPCfWUMj C0JlvYNdBCmrW502 BMcnFcH8EMXcflOrY7Qh ILDynRfdKbQ4w7M2Dh1P yTvweMHvDQ3iDrFyYMk4 M1AiUca5NOWwrRgf EK7obZEeJYojRa1qgIxn nHqlCR7yIWPdfbxtm323 RzEff9cnLSEbeIOeUAzt RHQ1K48xr1G5JKYt JYBhCOY7vYC2aR0siDsp bjogbGVmdDsgdmVydGlj ZUajBYurD655QHGqvUmv WbGJGyz2A7UjIzt3 MDMpnClfZC9qoOMaJHfd Zc3zqRagiYgpHU5oACLl ftvug608DeDvf5cdOMQe fWCuIGdnYZK6H53o g5Y8JGAmNUQgCPX3zPJ7 lI5ygXcwpakhsXIapAvv ssXwdBhcRFrsXFejF051 KVPbtTzgMe1MExh9 T3BfVjk4BJSjiPwxEF7n gCEpSVilHu6glEmtpGkv ZX0oKCEwayunx880VlHr u8ewURNwwKWnENpv BRE5V71nv8T0FXJnYUMy PYS2tYE8nZ4szBjaiolb bGVmdDsgdmVydGljYWwt PMvoH272UGDvpRxg PlBheWVyOjwvdGQ+PC90 vn97T1UmVkjvIql1XCQa BFN5aWY5pD5gDHKfHIfn x4P8xRR8X8SlowYh ci1 (more content not included)... [facility] Provider [place] 09-12-2023 Provider Orders [id number] [facility] Provider Orders [id number]#[facility]. [facility] - Nurseon 08-18 Progress [...] 09/07/2023 08:56 EST] Savita Oro RN Normal [facility] CBC AUTO DIFFon 09-02-2022 BASO # 0.1 103/ul Normal 0.0-0.[address] [facility] Comment on above: Performed By: #### C BC #### [facility] [address] [place] [address] Dr. Karina Montero Basophils/100 WBC (Bld) 0.9 % Normal 0.2-2.[address] [facility] Comment on above: Performed By: #### C BC #### [facility] [address] [place] [address] Dr. Karina Montero EO # 0.4 103/ul Normal 0.0-0.[address] [facility] Comment on above: Performed By: #### C BC #### [facility] [address] [place] [address] Dr. Karina Montero Eosinophils/100 WBC (Bld) 6.2 % Normal 0.9-7.[address] [facility] Comment on above: Performed By: #### C BC #### [facility] [address] [place] [address] Dr. Karina Montero Erythrocyte distribution width (RBC) [Ratio] 14.1 % Normal 11.0-15.[address] [facility] Comment on above: Performed By: #### C BC #### [facility] [address] [place] [address] Dr. Karina Montero Hematocrit (Bld) [Volume fraction] 45.7 % Normal 36.0-48.[address] [facility] Comment on above: Performed By: #### C BC #### [facility] [address] [place] [address] Dr. Karina Montero Hemoglobin (Bld) [Mass/Vol] 14.9 g/dL Normal 12.0-16.[address] [facility] Comment on above: Performed By: #### C BC #### [facility] [address] [place] [address] Dr. Karina Montero IG # 0.01 10e3/ul Normal 0.00-0.[address] [facility] Comment on above: Performed By: #### C BC #### [facility] [address] [place] [address] Dr. Karina Montero IG % 0.2 % Normal 0.0-0.[address] [facility] Comment on above: Performed By: #### C BC #### [facility] [address] [place] [address] Dr. Karina Montero LYMPH # 2.9 103/ul Normal 1.2-3.[address] [facility] Comment on above: Performed By: #### C BC #### [facility] [address] [place] [address] Dr. Karina Montero Lymphocytes/100 WBC (Bld) 44.7 % Normal 20.5-60.[address] [facility] Comment on above: Performed By: #### C BC #### [facility] [address] [place] [address] Dr. Karina Montero MANUAL DIFF REQ NO Normal [facility] Comment on above: Performed By: #### C BC #### [facility] [address] [place] [address] Dr. Karina Montero MCH (RBC) [Entitic mass] 29.8 pg Normal 26.7-34.[address] [facility] Comment on above: Performed By: #### C BC #### [facility] [address] [place] [address] Dr. Karina Montero MCHC (RBC) [Mass/Vol] 32.6 g/dL Normal 29.9-35.[address] [facility] Comment on above: Performed By: #### C BC #### [facility] [address] [place] [address] Dr. Karina Montero MCV (RBC) [Entitic vol] 91.4 fL Normal 81.0-99.[address] [facility] Comment on above: Performed By: #### C BC #### [facility] [address] [place] [address] Dr. Karina Montero MONO # 0.7 103/ul Normal 0.3-0.[address] [facility] Comment on above: Performed By: #### C BC #### [facility] [address] [address] [address] Karina Montero Monocytes/100 WBC (Bld) 10.1 % Normal 1.7-12.[address] [facility] Comment on above: Performed By: #### C BC #### [facility] [address] [address] [address] Karina Montero NEUT # 2.4 103/ul Normal 1.4-6.[address] [facility] Comment on above: Performed By: #### C BC #### [facility] [address] [address] [address] Karina Montero Neutrophils/100 WBC (Bld) 37.9 % Critically low 43.0-75.[address] [facility] Comment on above: Performed By: #### C BC #### [facility] [address] [address] [address] Karina Montero Platelet mean volume (Bld) [Entitic vol] 10.7 fL Normal 9.5-13.[address] [facility] Comment on above: Performed By: #### C BC #### [facility] [address] [address] [address] Karina Montero PLT 222 103/ul Normal 150-[address] [facility] Comment on above: Performed By: #### C BC #### [facility] [address] [address] [address] Karina Montero RBC 5.00 106/ul Normal 4.20-5.40 [facility] Comment on above: Performed By: #### C BC #### [facility] [address] [address] [address] Karina Montero WBC 6.4 103/ul Normal 4.0-11.[address] [facility] Comment on above: Performed By: #### C BC #### [facility] [address] [address] [address] Karina Montero LIPID PROFILEon 09-02-2022 CHOL-HDL RATIO NORM SEE BELOW Normal [facility] Comment on above: Result Comment: 3.3 - 4.4 LOW RISK 4.4 - 7.1 AVERAGE RISK 7.1 - 11.0 MODERATE RISK >11.0 HIGH RISK Performed By: #### T SH, LIPID, CMP #### [facility] [address] [address] [address] Karina Montero Cholesterol [Mass/Vol] 217 mg/dL Critically high <=[address] [facility] Comment on above: Performed By: #### T SH, LIPID, CMP #### [facility] [address] [address] [address] Karina Montero Cholesterol in HDL [Mass/Vol] 45 mg/dL Normal 40-[address] [facility] Comment on above: Performed By: #### T EMILY, LIPID, CMP #### [facility] [address] [place] [address] Dr. Karina Montero Cholesterol in LDL [Mass/Vol] 153.4 mg/dL Normal [facility] Comment on above: Performed By: #### T EMILY, LIPID, CMP #### [facility] [address] [place] [address] Dr. Karina Montero Cholesterol.total/C holesterol in HDL [Mass ratio] 4.8 {ratio} Normal [facility] Comment on above: Performed By: #### T SH, LIPID, CMP #### [facility] [address] [place] [address] Dr. Karina Montero HDL NORMAL > or = 60 mg/dl - LOW CARDIOVASCULAR RISK <40 mg/dl - HIGH CARDIOVASCULAR RISK Normal [facility] Comment on above: Performed By: #### T SH, LIPID, CMP #### [facility] [address] [place] [address] Dr. Karina Montero LDL CALC NORMAL SEE BELOW Normal [facility] Comment on above: Result Comment: <100 mg/dl OPTIMAL 100 - 129 mg/dl NEAR OR ABOVE OPTIMAL 130 - 159 mg/dl BORDERLINE HIGH 160 - 189 mg/dl HIGH >190 mg/dl VERY HIGH Performed By: #### T SH, LIPID, CMP #### [facility] [address] [place] [address] Dr. Karina Montero Triglyceride [Mass/Vol] 93 mg/dL Normal <=150 [facility] Comment on above: Performed By: #### T SH, LIPID, CMP #### [facility] [address] [address] [address] Karina Montero VLDL CALC 18.6 mg/dL Normal [facility] Comment on above: Performed By: #### T SH, LIPID, CMP #### [facility] [address] [address] [address] Karina Montero PROF 14(COMP METB)on 022 Albumin [Mass/Vol] 3.2 g/dL Critically low 3.4-5.0 [facility] Comment on above: Performed By: #### T SH, LIPID, CMP #### [facility] [address] [place] [address] Dr. Karina Montero Albumin/Globulin [Mass ratio] 0.8 {ratio} Normal [facility] Comment on above: Performed By: #### T SH, LIPID, CMP #### [facility] [address] [place] [address] Dr. Karina Montero ALP [Catalytic activity/Vol] 83 U/L Normal 46-[address] [facility] Comment on above: Performed By: #### T SH, LIPID, CMP #### [facility] [address] [place] [address] Dr. Karina Montero ALT [Catalytic activity/Vol] 8 U/L Critically low 14-[address] [facility] Comment on above: Performed By: #### T SH, LIPID, CMP #### [facility] [address] [address] [address] Karina Montero Anion gap [Moles/Vol] 5.2 mmol/L Normal [facility] Comment on above: Performed By: #### T SH, LIPID, CMP #### [facility] [address] [place] [address] Dr. Karina Montero AST [Catalytic activity/Vol] 10 U/L Critically low 15-[address] [facility] Comment on above: Performed By: #### T SH, LIPID, CMP #### [facility] [address] [place] [address] Dr. Karina Montero Bilirubin [Mass/Vol] 0.3 mg/dL Normal 0.2-1.[address] [facility] Comment on above: Performed By: #### T SH, LIPID, CMP #### [facility] [address] [place] [address] Dr. Karina Montero Calcium [Mass/Vol] 8.7 mg/dL Normal 8.5-10.1 [facility] Comment on above: Performed By: #### T SH, LIPID, CMP #### [facility] [address] [address] [address] Karina Montero Chloride [Moles/Vol] 103 mmol/L Normal 98-107 [facility] Comment on above: Performed By: #### T SH, LIPID, CMP #### [facility] [address] [place] [address] Dr. Karina Montero CO2 [Moles/Vol] 31.6 mmol/L Normal 21.0-32.0 [facility] Comment on above: Performed By: #### T SH, LIPID, CMP #### [facility] [address] [place] [address] Dr. Karina Montero Creatinine [Mass/Vol] 0.41 mg/dL Critically low 0.55-1.[address] [facility] Comment on above: Performed By: #### T EMILY, LIPID, CMP #### [facility] [address] [place] [address] Dr. Karina Montero EGFR-AF LIBYAN >60 Normal >=60 [facility] Comment on above: Performed By: #### T SH, LIPID, CMP #### [facility] [address] [place] [address] Dr. Karina Montero EGFR-NON AF LIBYAN >60 Normal >=[address] [facility] Comment on above: Performed By: #### T SH, LIPID, CMP #### [facility] [address] [place] [address] Dr. Karina Montero Globulin (S) [Mass/Vol] 4.0 g/dL Normal [facility] Comment on above: Performed By: #### T SH, LIPID, CMP #### [facility] [address] [place] [address] Dr. Karina Montero Glucose [Mass/Vol] 86 mg/dL Normal 74-106 [facility] Comment on above: Performed By: #### T EMILY LIPID, CMP #### [facility] [address] [place] [address] Dr. Karina Montero Potassium [Moles/Vol] 3.8 mmol/L Normal 3.5-5.[address] [facility] Comment on above: Performed By: #### T EMILY LIPID, CMP #### [facility] [address] [place] [address] Dr. Karina Montero Protein [Mass/Vol] 7.2 g/dL Normal 6.4-8.2 [facility] Comment on above: Performed By: #### T EMILY LIPID, CMP #### [facility] [address] [place] [address] Dr. Karina Montero Sodium [Moles/Vol] 136 mmol/L Normal 136-145 [facility] Comment on above: Performed By: #### T EMILY LIPID, CMP #### [facility] [address] [place] [address] Dr. Karina Montero Urea nitrogen [Mass/Vol] 11.0 mg/dL Normal 7.0-18.[address] [facility] Comment on above: Performed By: #### T EMILY LIPID, CMP #### [facility] [address] [place] [address] Dr. Karina Montero Urea nitrogen/Creatinine [Mass ratio] 26.8 mg/mg Normal [facility] Comment on above: Performed By: #### T EMILY LIPID, CMP #### [facility] [address] [place] [address] Dr. Karina Montero TSHon 09-02-2022 TSH 1.071 uIU/mL Normal 0.358-3.740 [facility] Comment on above: Performed By: #### T EMILY LIPID, CMP #### [facility] [address] [place] [address] Dr. Karina Montero VITAMIN D 25 [place]on 09-02-2022 VIT D 25-OH 28.4 ng/mL Normal [facility] Comment on above: Performed By: #### V ITAD #### [facility] [address] [place] [address] Dr. Karina Montero VIT D RANGES SEE BELOW Normal [facility] Comment on above: Result Comment: <20 ng/mL Vit D deficient 20 - <30 ng/mL Vit D insufficient 30 - 100 ng/mL Vit D sufficient >100 ng/mL Potential Toxicity Performed By: #### V ITAD #### [facility] [address] [place] [address] Dr. Karina Montero Telephone Encounteron 2021 Clinical Data Programmer Authentication Interface Message Text LM for her to call me for appt. Pt only considered New if 3 years have passed since last visit. Normal [facility] CULTURE URINEon 01-03-2022 CULTURE URINE Isolate [...] Trimethoprim/Sulfame thoxazole >=320 R F Normal [facility] Comment on above: Performed By: #### U RCX #### [facility] [address] [place] [address] Dr. Karina Montero UA (CLEAN/CATCH) COMPUTER FORENSICS ANALYST/MICRO I F IND.on 01-01-2022 Bilirubin Ql (U) Negative Normal NEGATIVE [facility] Comment on above: Performed By: #### U RENATO ADKINS #### [facility] [address] [place] [address] Dr. Karina Montero Clarity (U) CLEAR Normal CLEAR [facility] Comment on above: Performed By: #### U ACSCARLIN UMICRO #### [facility] [address] [place] [address] Dr. Karina Montero Color (U) LT. YELLOW Normal YELLOW [facility] Comment on above: Performed By: #### U ACSIND, UMICRO #### [facility] [address] [address] [address] Karina Montero Glucose Ql (U) Negative Normal NEGATIVE [facility] Comment on above: Performed By: #### U ACSIND, UMICRO #### [facility] [address] [address] [address] Karina Montero Hemoglobin Ql (U) TRACE-LYSED Abnormal NEGATIVE [facility] Comment on above: Performed By: #### U ACSIND, UMICRO #### [facility] [address] [address] [address] Karina Montero Ketones Ql (U) Negative Normal NEGATIVE [facility] Comment on above: Performed By: #### U ACSIND, UMICRO #### [facility] [address] [address] [address] Karina Montero LEUKOCYTES LARGE Abnormal NEGATIVE [facility] Comment on above: Performed By: #### U ACSIND, UMICRO #### [facility] [address] [address] [address] Karina Montero Nitrite Ql (U) Positive Abnormal NEGATIVE [facility] Comment on above: Performed By: #### U ACSIND, UMICRO #### [facility] [address] [address] [address] Karina Montero pH (U) 8.5 [pH] Normal 5-9 [facility] Comment on above: Performed By: #### U ACSIND, UMICRO #### [facility] [address] [address] [address] Karina Montero SPEC GRAVITY 1.015 Normal 1.005-<=1.[address] [facility] Comment on above: Performed By: #### U ACSIND, UMICRO #### [facility] [address] [address] [address] Karina Montero UA PROTEIN 100 mg/dl Abnormal NEGATIVE/ TRACE [facility] Comment on above: Performed By: #### U ACSIND, UMICRO #### [facility] [address] [place] [address] Dr. Karina Montero UR MICRO IND INDICATED Normal [facility] Comment on above: Performed By: #### U ACSCARLIN, UMICRO #### [facility] [address] [place] [address] Dr. Karina Montero Urobilinogen Qn (U) 1.0 {Peterson'U}/dL Normal 0.2 - 1. 0 [facility] Comment on above: Performed By: #### U ACSCARLIN, UMICRO #### [facility] [address] [place] [address] Dr. Karina Montero URINE MICROSCOPIC ONLYon BACTERIA LARGE Abnormal NONE SEEN [facility] Comment on above: Performed By: #### U ACSCARLIN, UMICRO #### [facility] [address] [place] [address] Dr. Karina Montero Bacteria identified Cx Nom (U) INDICATED Normal [facility] Comment on above: Performed By: #### U ACSCARLIN, UMICRO #### [facility] [address] [place] [address] Dr. Karina Montero CAST NONE SEEN Normal NONE SEEN [facility] Comment on above: Performed By: #### U ACSCARLIN, UMICRO #### [facility] [address] [place] [address] Dr. Karina Montero Crystals LM Nom (Urine sed) SEEN Abnormal NONE SEEN [facility] Comment on above: Performed By: #### U ACSCARLIN, UMICRO #### [facility] [address] [place] [address] Dr. Karina Montero Epithelial cells LM Ql (Urine sed) NONE SEEN Normal NONE SEEN /RARE [facility] Comment on above: Performed By: #### U ACSCARLIN, UMICRO #### [facility] [address] [place] [address] Dr. Karina Montero MUCOUS LARGE Abnormal NONE SEEN [facility] Comment on above: Performed By: #### U ACSCARLIN, UMICRO #### [facility] [address] [place] [address] Dr. Karina Montero RBC 5-10 Abnormal 0-2 [facility] Comment on above: Performed By: #### U ACSIND, UMICRO #### [facility] [address] [place], [place] [address] Dr. Karina Montero TRIPLE PHOS CRYSTALS MODERATE Normal [facility] Comment on above: Performed By: #### U ACSIND, UMICRO #### [facility] [address] [place], [place] [address] Dr. Karina Montero WBC 50-75 Abnormal NONE SEEN [facility] Comment on above: Performed By: #### U ACSIND, UMICRO #### [facility] [address] [place], [place] [address] Dr. Karina Montero Progress Noteson 12-28-2021 Clinical Data Programmer Authentication Interface Message Text Ms Peralta's appointment was rescheduled to 12/28/21 -- However, [facility] received call late on Tuesday12/25/21 - that they were cancelling the surgery for Tuesday, as patient was discharged from facility, and will be home - unable to acquire transportation. - ----- Tuesday, December 28, 2021 at 8:07:43 AM ----- ----- Provider: Yisel Guevara Specialist -- Clinic: [place] ----- Normal [facility] PSE Call H AND Stephen Clinical Data Programmer Authentication Interface Message Text Patient was identified by name and date of by nursing staff at [facility]. Sophy Dong RN Preop and medication instructions given to staff. Pt is vaccinated x2 for covid and will not need covid testing prior to dental surgery . Normal [facility] Telephone Encounteron 2021 Clinical Data Programmer Authentication Interface Message Text Pt does not need covid testing for surgery . Covid vaccine completed. 01/16/2021 and 03/03/2021 Normal [facility] Progress Noteson 11-03-2021 Clinical Data Programmer Authentication Interface Message Text ----- Wednesday, November 03, 2021 at 10:51:21 AM ----- ----- Provider: Destiny Winn, -- Clinic: [place] ----- Due to the weather conditions the patient was unable to make the appointment at [place]. OR was cancelled. Normal [facility] Anesthesia Preprocedure Robbie zabala 10-31-2021 Clinical Data Programmer Authentication Interface Message Text ASA: 3 PSE [...] abdominal abscess, and thus was sent to [facility] for further evaluation. Patient presented with [...] EKG, imaging, and consults reviewed Normal [facility] PSE Appt H AND Stephen Clinical Data Programmer Authentication Interface Message Text Patient was identified by name and date of . Nati Carroll Bill of rights provided to patient Normal [facility] Patient Instructionson 10-27 Clinical Data Programmer Authentication Interface Message Text MEDICATIONS: Follow your [...] procedure. Contact the Pre-Surgical Evaluation department at [phone] or your surgeon's office with any additional [...] surgery. Contact the Pre-Surgical Evaluation department at [phone] or your surgeon's office with any questions. Normal [facility] Progress Noteson 09-14-2021 Clinical Data Programmer Authentication Interface Message Text Spoke to Ms. [...] ----- Provider: Yisel Guevara Specialist -- Clinic: [place] ----- Normal [facility] Telephone Encounteron 2020 Clinical Data Programmer Authentication Interface Message Text Nathalia Justice MD ??? 12:08 PM Note Sukhjinder - can one of you please call [place] and discontinue Bactrim and Rifampin? She does not need labs for monitoring anymore either. [facility] contacted at [phone] Orders relayed to [place] BAILEY Patient has f/u with Tracy Jacobsen APRN on 09/15/21 Evelina Durham APRN-FAMILY NURSE PRACTITIONER Normal [facility] Clinical Data Programmer Authentication Interface Message Text Sukhjinder - can one of you please call [place] and discontinue Bactrim and Rifampin? She does not need labs for monitoring anymore either. Normal [facility] Telephone Encounteron 2020 Clinical Data Programmer Authentication Interface Message Text Forwarded to Dr Justice Normal [facility] Telephone Encounteron 2020 Clinical Data Programmer Authentication Interface Message Text Please advise Last seen by Tracy Jacobsen 04/28 Normal [facility] [email or web address] Clinical Data Programmer Authentication Interface Message Text From: Tyesha Peralta To: Nathalia Justice MD Sent: 08/19/2021 4:42 PM EDT Subject: Visit Follow-Up Question Is it required for you to see me in person every month? Or can we do over the phone visits? It's just been a hassle for this facility to find a ride for me to get up there to [place]. Just mainly curious if you had anything to discuss with me in an email form. Thanks for taking the time to read this. -Tyesha Peralta Normal [facility] Progress Note - WOUND CENTER on 01-05-2021 Progress Note - WOUND CENTER NAME: TEYSHA PERALTA MR#: [id number] DATE OF SERVICE: 01/05/2021 WOUND CARE PROGRESS [...] for followup is recommended. NAYELI HENDRICKS MD [facility]/[id number] E/S: Nayeli Hendricks MD 01/08/[address] [facility] PATIENT NAME: TYESHA PERALTA [address] [address] UNIT #: [id number] : 87 DOS: 01/05/21 WOUND CLINIC PROGRESS NOTE ATTENDING PHY: Nayeli Hendricks MD Normal [facility] CNOVon 12-22-2020 CNOV Office Visit (UROSMN) TYESHA PERALTA ([id number]) 1985 F Date Time Provider Department 12/22/20 [...] Patient ID with two(2)identifiers verified by: Cyndi Blankesnhip RN Pre-Procedure Antibiotics: None taken at home [...] Education Session: None Instruction Provided To: Patient Electronics Instructor Present: not applicable Discipline: Nursing Learning Topic: [...] Primary Vis (more content not included)... Normal [facility] Progress Note - WOUND CENTER on 12-15-2020 Progress Note - WOUND CENTER NAME: TYESHA PERALTA MR#: [id number] DATE OF SERVICE: 12/15/2020 WOUND CARE PROGRESS [...] debridement at this time. NAYELI HENDRICKS MD [facility]/[id number] E/S: Nayeli Hendricks MD 12/18/[address] [facility] PATIENT NAME: TYESHA PERALTA [address] [address] UNIT #: [id number] : 86 DOS: 12/15/20 WOUND CLINIC PROGRESS NOTE ATTENDING PHY: Nayeli Hendricks MD [facility] Encounters Encounter Date Encounter Type Care Provider Facility Start: 05-02-2024 ambulatory SINGH MORSE Facility:[facility] Start: 03-29-2024 End: 03-29-2024 ambulatory Sreekanth Dey Facility:[facility] Start: 03-22-2024 End: 03-22-2024 ambulatory SHARIFA ADAMS Not Available Start: 02-22-2024 End: 02-22-2024 ambulatory Sreekanth Dey Facility:[facility] Start: 02-09-2024 End: 02-09-2024 ambulatory SHARIFA ADAMS Not Available Start: 01-25-2024 End: 01-25-2024 ambulatory [facility] Facility:[facility] Start: 01-12-2024 End: 01-12-2024 ambulatory SHARIFA ADAMS Not Available Start: 12-28-2023 End: 12-28-2023 ambulatory [facility] Facility:[facility] Start: 11-30-2023 End: 11-30-2023 ambulatory [facility] Facility:[facility] Start: 11-24-2023 Chart abstracting Sharifa Sorenson Lucy miller NP Work Phone: [facility] Start: 11-24-2023 End: 11-24-2023 ambulatory SHARIFA ADAMS Not Available Start: 11-02-2023 End: 11-02-2023 ambulatory [facility] Facility:[facility] Start: 10-05-2023 End: 10-05-2023 ambulatory [facility] Facility:[facility] Start: 09-26-2023 End: 09-26-2023 ambulatory JEWELS SHARPE Not Available Start: 09-07-2023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
== END 2024-07-04 15:29 | disposition home or self-care (01) ==
LOC: RAD 15:30
PROVIDERS: PCP Internal Medicine; Visit Provider Nurse Practitioner Family
DX: K63.9 Disease of intestine, unspecified (principal); R10.84 Generalized abdominal pain
CPT/HCPCS: 74019

== ENCOUNTER 2024-07-04 15:54 | Emergency (ER) | payer OTHER, SELFPAY ==
[2024-07-04] VITALS (19 sets, daily range): BP systolic 107–126; BP diastolic 67–83; PULSE 107–134; TEMP 37.2; O2SAT 95–97
--- OUTSIDE RECORDS SUMMARY | 2024-07-04 16:01 | XMS_ITS | CCD ---
Author Organization [facility] Care Team Providers Care Project Buyer Name Role Phone PROVIDER, UNKNOWN Attending Unavailable [...] Unavailable Vinh FAUSTIN, Nathalia Cano Unavailable Tirbaso ROADABILITY MACHINE OPERATOR-PBX OPERATOR, Tracy Unavailable [phone] Herminio ROADABILITY MACHINE OPERATOR-PBX OPERATOR, Evelina Unavailable [phone] SHARIFA ADAMS NUCLEAR MEDICINE TECHNOLOGIST-C Primary Care Physician Yun Hermosillo Unavailable Unavailable Maria De Jesus Denton I Unavailable Unavailable Sandeep LOPEZ Attending Unavailable Rach Ledbetter Attending Unavailable MENDOZA GIPSON Attending Unavailab SHARIFA Davison NUCLEAR MEDICINE TECHNOLOGIST-C Referring Unavailable Singh Morse MD Unavailable [phone] Singh Morse MD Primary Care Provider [...] Drug Allergy 07-02-20 15 Itching, Rash [facility] Repository (5 sources) Ciprofloxacin; Translations: [CIPROFLOXACIN] Drug Allergy 07-11-20 15 Hallucinations , Eruption of skin (disorder), Unknown, Rash [facility] Rep[facility] (5 sources) Ondansetron; Translations: [ONDANSETRON] Drug Allergy 04-06-20 16 Headache, Other, Unknown [facility] Repository (2 sources) Ciprofloxacin; Translations: [Cipro] Drug Allergy 12-27-19 17 [facility] (2 sources) Ondansetron; Translations: [Zofran] Drug Allergy 12-27-19 17 [facility] (4 sources) Cephalexin; Translations: [cephalexin] Drug Allergy 09-26-20 23 Rash, Unknown [facility] (1 source) Sulfamethoxazole / Trimethoprim Drug Allergy 03-24-20 23 Diarrhea [facility] Medications Current Medications Medication Drug Class(es) Dates Sig (Normalized) Sig (Original) acetaminophen 325 mg oral tablet (1 source) Start: 01-29-2021 take 2 tablets by mouth every six hours as needed acetaminophen (TYLENOL) 325 mg tablet Take 2 Tablets by mouth every 6 hours as needed. 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) drug therapy; Translations: [OTH DOPE POURER CURRENT DRUG THERAPY] Onset: 2 Episodic Other CLASSIFICATION ANALYST infection and 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 (1 source) Spinal [...] Coding Summaryon 04-03-2024 Coding Summary HTMLBase 64 XdwxkggvMZe7wSx+PGhl YWQ+KB9EUCMpZ15gdZUd sZ8nU3DKNGrLBlstVSQF RKeAEqHjceGiCZ5aiYOm ZXJu IC8+AS7kAALlKjvnuMSv y9G1qNK7C07vdp9eZRjr uLC1UAUeAbGqcvzpv0jb rCr1JNinHuzxHaNc XGCjqM03OZS4wL29Lr84 pTJgbWDsf7ewyYz3LbCe MHQjHNA8bJkrJCrue8Ka NQXwR43rdVUsk6B2 IGNvbGxhcHNlOyBlbXB0 gW2iBHhvwaooy7micgxa Vkm7lp65cCKgt4S5dCR0 Z7UcakA6SSJuaPPw DyqvvLGHuD7wcfmjd2bx laenRxFnSZWrLGc1IRq3 WEVsqMdaPxYwPZ38BPA9 CYYwkyAsE2PvELNu xDlmLjU8k2V3Hy9ZA3NB XmjxP2FHHQVHCRqmjCI+ KC02eb38C0FiHzxpIip8 CYLjYEY9pJB3jT4t LHNiATvqk3H8xYQ2Z7Np msVczr4kg4noMOQqUKdc O96zjOErt7U1TPEkpEX7 GLOtxPrsMoPpnM87 Oyc+CDWztIawl9GhPejn h1wlg6ymgKm7CdmvQLCy bqYcrPlfFEL9u8XqYp3f GTOzaXK6bDX6tY2l MwIkRlH1HTdkY257WoAj lXWwMwtdL93fJ8JkqOX+ ERBbXfx9JCLneXyaVP3r K2ZbLMDddgmqdFZn uSegCS6nWDAgpnqgTOLo kJ6hWGIgU2t5KcCyMsB8 WUctH3CyNXJfsaneIr53 jK9kXfYnQsN0CTcg U9FkeeB9FUCqxTJmOUdu QIO2U07xy0Q5YXBmGZXa ZBL2xVO5mV2jmGlhsqgy bGVmdDsgdmVydGlj LQqdSSmzC116SYKnjVyc PkNvZGluZyBEYXRlOiAg MDYvMTgvMjAyNDwvdGQ+ DSTrBZM3wNwrLVUc xPFeNAgqOy0pxJpczTfu GT1dTKSggvhzFPUcyN8t AANxaEArkSrbGF2nGVFv abaqb046ReJoOTX7 SHCuwHZuA9YeoR0hKpVk YYYsDKQdS8StoAAxQIek H263SNlgNfD9LKMjebNs B6SvOFXdsOovQaV5 x4K8Wg8Bf2RghbjaQ9Af fINiVbPyJwbrJVm0T6Fv PjwvdHI+HQ19TZCxCZ77 ZQq3WFE3oVgfHMoq KCTmY8HxeF0qCsGmOCLc ZGRkOyc+PHRhYmxlIHdp ZHRoPScxMDAlJyBzdHls TK6fWi2cCMZfRUBz oItjsPBbHwGck7xoWWNd FUhjLA7dvJbmP2PkaEB4 IBTea4u6Hc30R11kD4Oy dXA+PCDkmHT8eWU9 bW9sJnKhDqN0VSzsJ521 NrTawWPlIxdsm5qnq2ct gTs9SdC9MEGxxwZpsXxp BAE0g5CoJq65X58f IHdpZHRoPSIxNSUiIHZh hWogak0waC4sNz9+PGNv pBS9ePZ5tB0oSmBeTwY8 LNhrQ410UuKzpJTh Ztelg4zjc6yfwBe2GzPr HWUtmdDiuGwbLSO7h1De Zf33K7IhsGfev6XgPju4 lv37fKCow5U3uJE1 C8NpITYlbueqvKLfmApp IL0lSDJgafquZDJunV3v LQYnH3h5CzIiOrT4RQaf D6MgznU9JJJupCGb BXRcsBIInK6bonnzr1vz lmldPiQvWGIvOVy0VSw9 DVQbwSgwHhIvYAD3VeW3 KVR1wPMhyE7ygVbh nbmdeD0eYid+RXB2mHGb hAJJEQ8mOcfhkLK+PHRk URP6gFpuRExaGLWtwV8w YSPdI8q9PsXwZhQ9 TIueQ2XbkyJ3YECtfISm INOvlJIFdA7hxtmpt4yf lsrqXhKfQCFfVHc1TEh8 LWFsaWduOiBsZWZ0 DjF5KTN1xPEirD6bmQom vbxuvN9uKmv+QmlydGgg XBK3TVx5W5VmQmk0HQIb iKgyRC8knUAjWFhs Lb2dfVflmErdSS6uZFCl vebje260BgFno0ceJTBp qWBrMJmcLEY7X28jc2P3 GZRcHTKmDAR1mON1 lO0gpBcjfqngpAFfdHsh rhFweFmfUFmbLLeaL120 KOKytHhpKgXuEFq4D0Tw Gtl0CNMtsRldPV3j sKJhZQuzUd8lhYnovUao ZV8hGFDpuyhsa930DtFh a5doCLJlaYBtZIcgTMI9 N73qs7B5MYIpSAKy FBJ5yAL4wI2pcMnyvwon bGVmdDsgdmVydGljYWwt NIpyR929RSPjiIzsIzRx eUv8D0HxFxv2CVGx mIhvXT0ztXSnVTzmLh7m eWhzoCbyJS2sAXKyclxq m558KwMwh0szNSAwqYGx YXoiGTJ1X71of3N2 SXZtCNJrJBN7lVP3vF6h bGlnbjogbGVmdDsgdmVy xOwuPEfzDLveS473PWLb cDsnPlBhdGllbnQg ZCqfRPi7M5VdQvbhxKC+ ZZ02GRBnUC50kQEbmHUs a0dcoYa0UaRgSBHlAKN9 iQlkCQarc8MlVASf Q77rbORpa1L8DEOhqNsw xZNySqQgdQC8qF7iJLzr fshng0jbmwlgSjawc5tv ei25uO00P64sWEal ZHRoPSIzMCUiIHZhbGln sv9jjO4sNf7+PGNvbCB3 dZK0bB1cEBUdObA3IEch G371MnTufFMhPtxb w5ldw9ozzYx9CkK4FSWv oaBcxFlwBEG5v7ZgUo56 K80bBRcbIZIwGOFwOTQl DWEztShrov6vrV6k Ii8+RQEkoYV7cRK3sM1l EbOrOlM8TXifY235QxRj mFAuPreiL40wQ6KchFL+ AQIcYrv7RDFmzVym VZ1evIKrLIylKg5mVNJ0 KoZsClLdPExtK6XxANUw wqbesdtkuXK4ZLWlKAJu rJ44Qx0jvPnpPQHu hFPCjX7mnjeqz8ygitsr DiOaKOWwBPk7LVr3SWJb uFwrFzMxICM9YvJ5BWH5 lGPogR4kwRaagmsg qB8yO4NxBSXyikqxQa51 qG8uHtLoEvN2YQrfFbs+ UkFUTElGRiwgREFXTiBN QVJJRTwvdGQ+PHRk UFF7vAktXHedFHUgpT9n FZZaV1z8FsHtLdK3BZqj Z3BlRHRunhpeKg34oY2d UgJzIiY2UGfwK9Ia edF2HDPgcWGaCVtrJOU4 H14vf9L5HCMqCTHjOAF9 zYW5uG4nkQygysipoYFt dDsgdmVydGljYWwt XJiaF618YCUbgWwtMpZl LnQhVjF8FIo4B6NnTbg4 MOLedWwyIU2abINtTDte Ha9wfQgckFbkQR1x XZHzwlnbEVZouS8yOZUg fLKcqBaaFE3qNANpttsw h540WxJpJRA3FSEddGIi Q8WwbX0qVqFfDWCf AMDkM6UjcFQcFJtuS273 LEdgXvC7TYNjdwGwP8Bu LDDnzAzdHbN6d6L6Gu8s NyBZZWFyczwvdGQ+ DGLsQGT5bQhhJXkkTEOp nV4yLWSiH5c6RvCfUhW5 HBfvZ7MtYOPruqtcCz44 jA3mXtArPkZ7VTms F2BukvE9QLWenYVyLCue PTD1F97lh1H1GSZqDWOs CFB0kLA2yK4mvIzjixia bGVmdDsgdmVydGlj XKtuEMkjO814UTApeWia PkZFTUFMRTwvdGQ+PHRk EOL1wHwaGMcpMIIgeW3s LJIeR9b1SiSlTlY4 IWgiD4VnPLTwkgsjYq23 fS3zHlPmAlT4MHfsB7Ng zlL7GVIjgDArIYzjVWJ5 F79qm8T8FWJnCKBp VNV5pLB6yH1wzNqysrvc bGVmdDsgdmVydGljYWwt PVxfJ026CFCrcTyjNsHp dQRNfDViKWD3BF98 QN03B7KbHhjiwISrrDW+ PHRhYmxlIHdpZHRoPScx CVToZfEacWmlWG4tQx1n ZGVyLWNvbGxhcHNl BzIgu9ejYECqXLlyTV3o qHfxR9IhrMM5EAWhq5j7 Yk18F26mY2LpgVI+PGNv fRU6mTG2mS8mZsDh FkU4RQjrD772DjUlbLHx Ddeye1tgj1kqrEb0OwNh GXZcdvCcfValWTQ1s9Ag Uc11H64tTTtcYDJt YCGeDVLeTITydBxgbr8k cH8oBx8+QTJhsRO9pAW8 aW7mDfNzJxL1UTlyG332 NsZxbHYaMkzcK99s E2JhnXE+OVKfVof1ELHv gIvgKE3dxDVbBNfiUd3r CBY7LhKkJaThMDyqR6Ys ZGRpbmctcmlnaHQ6 GCIqCZTddD91Hi1uzCvg Zk3zXUBmALA6OZRuzUDq T9GvoU8pSjUeBXYlAVRe R5ZgnVErOXdnO068 FPsuIkS9JOZypiWsE9Gw HUFktSydOwC8e3E6Fe2C zNljbSPtBU1lPvXnJLy7 W8WpCbd3HWXbfGnw DW1veTFxFCpfNv0jrAag rSjhCX8bVATqpytpn918 YtZxs9qmEDJpbSAgOVde SRW7B78be5C2OHTb ZNMpRJF1wZG5pP2gpRtq bjogbGVmdDsgdmVydGlj DWudQWeaA189OFAhqMqi EjTPZjr3G9NcXjm9 YFNrxEtjMV4xrHBaRYdl Vu2fqBlspJwrXH1mBJOk ddkvs744SyZuo9pnBRUz cNTxIYbePCB9H92z u5M2HRHcEFGsZDQ6nYC7 hE7vgHrvjxeskWTuxHmd shBrqAveWMztFRedA947 AAGpcAuqRq5TAnb9 B5PrJbb1YTKqqEtbKG1n wYUjXHouUc1cjJkvrLii TW8tPXEnztlbx964DhNu x8viYTYxxWDsDWwh THS7Z15sv3G8PCWzQLZz YNT7sNM1jB9pbHfcocba bGVmdDsgdmVydGljYWwt WQmxO732HFGseAui PlBheWVyOjwvdGQ+PC90 tb86K1EsQhsuFul6UJKe BEU0gKH6aX0iSQEdQMzw l1G3mLC6Q0JfwdHv ci1 (more content not included)... [facility] Provider Orderson 04-02-2024 Provider Orders [id number]# [id number] [facility] Progress Note - Nurseon - Progress Note [...] on: 03/29/2024 13:53 EDT] Freda Henriquez RN [facility] Progress Note - Nurseon Progress Note - Nurse Patient did not show up for boateng catheter exchange. Registration was unable to get a hold of patient. Left message with Olena. [Electronically Signed on: 03/23/2024 15:51 EDT] Sophy Araiza RN [Verified on: 03/23/2024 15:51 EDT] Sophy Araiza [facility] Coding Summaryon 02-28-2024 Coding Summary HTMLBase 64 RpucirgjRNo0uGl+PGhl YWQ+LM4QCBJtY29hgLDk lJ1kS9ZSIWoCJglqICQT BNjKAoAhnzXuAO5tsLSm ZXJu IC8+WP6cTNBsXiwtdBNi t3D1nDG3R71hsu5fFTjm xPA1SSHfUoYbkzptw4pa fOj2FMdaPdwcVjZb GRUgmG75UHN5vK46Wh33 bXLtwQDbx0eteZr8VcLz VGSqKAZ6tIwiJAnbx9Mj PXTmQ86smQDbs5N4 IGNvbGxhcHNlOyBlbXB0 jI3pGXuewvwme2ycjpgl Tpp2al56nWNbr0C8nYM0 F2BwvcQ6IXXymYLh OpsajZVYqX5srurqv1yx krrgFxLbETOaAMa8MNb4 JPYuaAhkZiXgLD90UFG8 JJUqrbEuZ9WbMYPa eOuaCxI9c1L7Es5RM8MQ ZidqB9BWZNPTRTqcmGB+ HY56ol55M5QdEqzaVgq8 PASqLRZ6yCR6bP9r GXVfOMiuz9Y1cFE7H9Ko vqRdid8sq1frWVPxDBkg Z83bxLGox9Q9QYXmnZI4 ZSXrrAooNaXbqJ04 Oyc+IACksLhte7NxHexu i4jnk2mzqCg7NvulNWTf utUxqXryMZK3z9OfIt4w EWQdvWV4jOL7aC0k LzMxWzS1UQouD435NfZi wXCgNwcxL05jC4ErrHO+ CPHzIqq2OHQccTxvRQ4h J0SgFONwxgfhrBFs rDhwOY7kGPLjxkocAEGa pD3gSWEkL4m0WkFoYuS6 SKbvS3ClNMOtymmaFx37 qJ3qNtBwYqO6RItp Z9SojeR3MAJaeDBeLKkf UTU5S79jb7S5TUXtTSRd PFY4pYD5zB2rcVgdupyq bGVmdDsgdmVydGlj IXppOTsuV414MJXlqYtv PkNvZGluZyBEYXRlOiAg MDUvMTQvMjAyNDwvdGQ+ MVWyJKG2qGqmAVWu bABqXWuxEk9ctAvwoOkw PH6gOQGkerawREDxjS4f EDKhbVQpaZtqCC6lBBEd yihwn216LzOxAVQ3 PELfzHKtN3UqeG2iPvBk BZNfFWRrX6IjfGYvJWbv I075NBieXpC7JJVcnpIq V0AzLYYxgBcpNnD7 j5G6Fg6Kt6WaopltI7Vt gGAdWmGwLmunTZt8W4Oi PjwvdHI+XI68CCEwSP88 YXa1ECC0aHiwDEbx YVVtX9MkbV9sYbVsWTEt ZGRkOyc+PHRhYmxlIHdp ZHRoPScxMDAlJyBzdHls AQ3nPs5eDXXqONYb dAyjlAUlFdDyc1ldKNHz SUshYV9jeBoeJ1BqdCV0 QQNxo1k3My45J53bJ5Ws dXA+XXWwwVN7xUC5 qU6jPyVzIdY0DRxaI249 YmWlvQIlPmuoh7akt0tn gFd8FnI3NXAtuvLdeRqr WRJ3p4KmIe46B36v IHdpZHRoPSIxNSUiIHZh vWpnay4thF5bGv7+PGNv rPJ6zQJ6yO0lEpRmDaG2 PRciN795ZiCfiCBf Fpkkq6hkd5pcmJh7JpXr UXPzptGgkXpmWIH8o5Dt Uv65G2JpaXpfx0ClPcf8 au22pIWof3V7sXR0 J3HsRUXstwwsjGKclIzh DX1mHAMlnzvhXHInjS5l UXAqB1t4ErDsIuL5VRan R2KzwtW3JTJizHNs THUpfSYLjG0udstzd8vd bcfjEwZvGWJfXOd6XGa8 ZSYrgHcjVrLwIQU7GlB4 KZK6zFMfkT7fkMjq zcwjaG9rRwa+ORQ1aQGf iTXWOX9lFfannWE+PHRk OSE9cMweUEpuQIJrcQ6d CGDuF9s8PtKtCvX5 EQwqI2PgbjZ0DVCykSMl EDHwcUMDgT0otdipo0ih yzjiTlXoQWHjAQz4ZUt2 LWFsaWduOiBsZWZ0 ZbQ2DMM0xYMblE9ghDuo hqxluB2xLqw+QmlydGgg JAL7PKu4E7NgFmg2BOXw hEbeJA1gkNRsPLrl Wu1efXnruRgzKB1nLWDi vgija281MsDka3daRVFm qZIpQZyhAXR2I42zm9J1 TKDqPAXfAVB4qDC4 eW3heEnsmjahoHSdlXqu xrThnOftXJnbJYbhT751 ROCrkUaiOsSoWCl3Z5Zg Ctq1NKYmtIvgBB9c tKLePLjxGx2goVtnjGov QG3iOXZjwnfvk937DgKw u5dgEGXkuFGdLLkjUDC1 Q38ko7U9XXRcQXAb PNV1iCA2bR9rqHmnhxfi bGVmdDsgdmVydGljYWwt HVjfB056FJMtuYszNkVh oBc3N4XcHjn9SADf yQnrFM1lmBRxMCccJy8q nPqfzKvyMA9mVINxeeft q999PaJcg8vqMFEbaBRp QVqcNFG1Z10ii8V7 ZJWnUJNeAGC0fYF4bL6d bGlnbjogbGVmdDsgdmVy fZtbIGkoBEcxM022MGMw cDsnPlBhdGllbnQg RRovXEr7T1EkXhrsxBN+ DT24GGSnWJ48cZHftLDo f1tycDd7KdYgGYScRQI1 jQiiCZwwl9WlWVTd N92mwBVhq1Z9ZWPvhAky qFAnImFowWC7xN1dRQvl qnyjc9ldcyvpGbacw4pl pg85dM07S86sNXsv ZHRoPSIzMCUiIHZhbGln lk7akO7bIh8+PGNvbCB3 uRC5pV4iOIIwYpO1RRcw B532UtWacOPmJinc h3syg5zbfSo7AcL9VGJk xpBgzOzkOMV8u9CkEi46 Y06pIZesFDLsTSZfOUHg VXMsdZlxzm8fpJ4u Ii8+QTRmgJI9kHK9gW2n SuZmAuF3VJvdY575KkMs sLYbNlreP65cQ8QduSL+ TIBeZgk7QDCdwHxn HO0iaICeGVvzVz2cOVQ3 AdKnDfUjTTazI2JaQRFf mlftaqnyyET0GVUrHZMy gT77My7ypMfjHNMi dJNIsF1pkgaof7awmqpd IcGaNJJsJEn8TSx0KWUo wHwlYhReIRH9FrF3POC9 pGMwtB4uqJnxibuo yN5yR5FnJACmikljJf97 lV1dWnQzPxU7UWrvMpa+ UkFUTElGRiwgREFXTiBN QVJJRTwvdGQ+PHRk LFB2oErvCEruNIXjmV2u YKHaD9c0UcKzFeZ6ZFze F7ZzFUJymlxcJx85uY9u CmCjGxN1SWfgG1Pe xiT8ZSGhcAGzWIruGDV4 P46oh4C9BQDcJKNzFPH1 nXD7uX6slZarxqrzbGCv dDsgdmVydGljYWwt TUbtS173SEIhgIpyKiJc VvSoUcM9TLk7W0OsDzl4 UEPxlDvhXM3iqUXvJZnx Br8xkJwjuIeqVO5q TRXzoudkIHBtbD9qFBFv eQJgqRcpFC9fVBVcitcp t455QgQrEDH4QVRfbWOx F5XbmK7iKrNiIIDz QYKfX4FagDWuNYtvJ735 JGiwLtE7TVRfttChG5Kc SVDlsYusMzQ7e4Y1Yd2d NyBZZWFyczwvdGQ+ HPXbERK2wUxrREhbUXCk fW7wICPyH7l4LtZpSvE5 IQxgQ2PpZHPaldhhBo77 uD3uDdIjEcF5ODpl V3UshzO9YHBgkAZtCGwb SKE1O71tc9L4AUPrPVCe QTM2kQI5vQ7stSyqluwd bGVmdDsgdmVydGlj GXjoUCvdJ458CWZixHnd PkZFTUFMRTwvdGQ+PHRk LLO9qTbeGCkhLHItcI0v ODJfH5w1QqJxExU4 GCemS4NoUDXzhgrjXz37 bG7qYhSwDuZ7GIckV3Lo beY1BXLxlSKgJYhbFPS9 I41bq2V5JTZmTHZa TRE8gBA5uV3jbAopocpf bGVmdDsgdmVydGljYWwt BWjgC690WOSsjPinOlWj rKAEcZIyPHU9XY35 HA31M1KgRuzmiJGdfMT+ PHRhYmxlIHdpZHRoPScx QTZzSvSnoYegMI6pLf1e ZGVyLWNvbGxhcHNl JrPoy5zpHOScVZvcOU4h rNrxB4LclSH4WBEyr5s7 Qh96K13bD0QpyTI+PGNv vJT4uKJ5yQ7uYwJr JhG2JSrvI543DbLkxYHl Dazoj5dfz8misTw9ZvYz MXGgeyLbyEgmIIY9i6Me Cm93O61fGRhvRWJo IVRdBDSqDLNdlElrcp3c tS3eIu0+KSYehCK7rFG5 sO0wCcJmQtA3MPfvJ791 EvEakJWxOidnS94c Q9KgnDV+AHHzFeu7CFMn aXxzHQ6zzVAdFOsrRm9v EUU5RgWaQxQvNSjcM0Dc ZGRpbmctcmlnaHQ6 FCYiQMCdqD92Lu0scDzb Hs6nREQtUCM2OMRepBSw G6GuuV9rSzJtNMBjQWDo Q6XtvIWnWLywK829 ADudAjR1VZEpdxJnB8Oz YGYboHjwGcI5t1L1Ep5P bCrjyYHpHQ1iZmKfIGc4 I9DdIfd9AUQegSpn VR8otVKzTLsiWh8dbZro hCtjPU2vFTJetkqur507 ZcRqn2ggAWYvrGSmGEbv COK2O99md8E7HRSe AXZvOEA2vRB5lG1bhEhz bjogbGVmdDsgdmVydGlj WEotUUmoJ324LCByzBeb UzVARcb9V4TzTtn8 BXTznQjaJS0maPWbTEcf Ji2erVgucHuzRK9dJMAm octyp896FxOah1luYCDa aSIwNFlzJIO3D11z s1G0KGCsDHDlHZB8hQI4 hN4pzBqxraofiNAvlIbu loIdaEgaHOvaDTxxX986 TJNzkXffBk5QIli0 H1UiTeb3CEHmxOhcHU4e qYGsENtyEx3mlKwhxEww VQ5bJNUungfft523SjQd o2adAOOkzEHyQWnj PZY8X84gv0W4BOXkGLJn IWX1yLY0vN8doRqrapnw bGVmdDsgdmVydGljYWwt REktV810JFXjbDuy PlBheWVyOjwvdGQ+PC90 jc27W6VwWlguTvl1SAQq WRU9hZZ6vW6jRIHbYJhs r4D4vEW1E2KbjvDe ci1 (more content not included)... [facility] Provider Orderson 02-23-2024 Provider Orders [id number]# 1.00OTGTIFF [facility] MAGR Preoperative Recordon 0 02-22-2024 MAGR Preoperative Record MAGR Pre-Op Record Summary Primary Physician: Sreekanth Dey MD Finalized Date/Time: 02/22/24 12:20:00 Pt. Name: TYESHA PERALTA/Sex: 1985 FEMALE Med Rec #: [id number] Physician: Sreekanth Dey MD Financial #: [id number] Pt. Type: D Room/Bed: / Admit/Disch: 02/22/24 [...] correct. General Comments[facility] IV for further noting Finalized By: Savita Oro RN Document Signatures Signed By: Savita Oro RN 02/22/24 12:20 [facility] Progress Note - Nurseon 05-0 Progress Note - Nurse Pt arrived for scheduld monthly boateng change- see Interactive View for further noting. [Electronically Signed on: 02/22/2024 14:16 EDT] Savita Oro RN [Verified on: 02/22/2024 14:16 EDT] Savita Oro RN [facility] Provider [place] 01-31-2024 Provider Orders [id number]# 1.00OTGTIFF [facility] Coding Summaryon 01-30-2024 Coding Summary HTMLBase 64 KrhvnosoSUw0hCr+PGhl YWQ+ZS5ENJMiI29jrOJl uL6uD9BLPPvNAjokUORI VKnXDyExlsBtKK4xgWPy ZXJu IC8+HW1xVTBnXrwzvJYs g7V1xTO1N98uyh3iVVns vRP9RXUmNlMvpkfnb9pq hLp5ASuwYrwxJcAf ZKVsvU51NEL6kA07Eb85 oHFqwCNbl7nixOy6SnPk HCZcAWW0fEukECtfa7Lj POMlA66dsIQsy4Q5 IGNvbGxhcHNlOyBlbXB0 hC1yAVxdontsw2ojwjxo Srs2mh69hDBkq8F5tUO1 Y5YmowG2JBDlgQTk XzfwwVSTwB2kceyuf1zu jmpuSkGsDPPjKHc7UUm5 VEJeiWjrPzRkHL74JNI0 VRZrlnQyZ8GuPJBb jSclDbF1z1H3Ra0FS3LS FowyF7OZGXIRBWgapPD+ WX41jj57H2TvRnzgZbv7 KLLzEKI4bFG7eO9q PIRsZDarc0C0pKO8X5Vm yjPulu4wg5lfPOLaIFet L84lzODcx0C4LZDihAV7 LTUtuSzcMkHpsN11 Oyc+KTTbnVvae1WgPjei e3zkk0jilQo4IytmQSZj rlUplAjoKZT5x4YlVs8j RCDqrQB8lUD4tJ0f PxIpWtZ7LAhjS235AfAo lBToUtguJ05rA1OplCV+ RKKbBtx7KIHthEtgVK8j P7PtSLAwwlwokMGp bZwiJR0aMCAxvyyhUXSd vC9uEOGkI1y3BjDaTqL6 TQhcL5XzVZMlaqteNa99 rV0jGfGfQeY5ZYgd R6LowuE3TVTdwNKeEOnl PAI0Y70gk1B2NQCtTHKw ABA0wIU2qK4cfYmgjztq bGVmdDsgdmVydGlj KGjrUFbfE409LBXqnZne PkNvZGluZyBEYXRlOiAg MDQvMTUvMjAyNDwvdGQ+ ZKIkAEE8cDcwGEJn pGCfXFtfTu1jkYbxeDix HT3rQYTptnqfNANdbI1s ZNDagDPvhXjcKG8bYTLl nuiwf479IvIzAZE0 DGRxuOPxL3LszQ1xCiMv FFBoADUcD8RnkCSsBSqi P488JEraOqN2DKVbapAh N9LpWVCpbRqsIiO8 t7Q8Sd1Cn0AwifgdM9Ie mEKiUeVdYhgrWYm2R1Lm PjwvdHI+YE95KLDfHE59 MFg8QNK4uTeeOUlv NPZuM5ZmlN3cVfLfXVUa ZGRkOyc+PHRhYmxlIHdp ZHRoPScxMDAlJyBzdHls DC0uWd4gNANiFZYy zVxupLAqItMpz5siWWRe QWfiFX2aaIomI3VztKU7 OOBkh8h1Zp40P83aT2Uy dXA+GQNlvWM9bYP8 hN5vIrXrOpP1QXhlN352 YtCofEOgOcxku4zie9fk vUu9AbP1TQJxauYlyRzi BTH2j5YgJv94F67k IHdpZHRoPSIxNSUiIHZh nSfpwi1dhL0xMt9+PGNv wXG9rUU9pU8fKtDkPuZ0 QCaaW823RfTpmSSb Pkrtu2llg8dtfNk9FcZz TYDpljFzzByzKNY0g1Rq Nj21D5HmpRgrr4AuNho0 wi40yWKvn6N6cBY0 W6BpDWVckhwpnOVixVvr HD6xEPQnpfzqYJCmuI1a KMDzO1y6LsXjRqI8HZhn L0XnnqJ3HDCrzTYi PIGtzRNNjW9zdbmeb2qn ocyvBoVzMLTyQLr3QBt0 RLWvtEpySaNbMGX4OqL9 CST0cHVvbQ4rgTmx kwzsuQ7bRmd+USW3kRUz sNZGQA2zMuiqdBP+PHRk MVF9aZepCTpcFDCgkM9u TCPhH4y3RgOfJfC0 MEfmA5OcuzS1NANclOGh BQUipEXDpV4ygopca0mj fgdzVlLmFDUlHBa8TGd2 LWFsaWduOiBsZWZ0 SzR0ECB4iMBmgM0geMcu vtsciW4dBho+QmlydGgg RFV3SLs5H3KjNpj2LQFr qBazBE3duINuDCye Ek7wiSvlbBlkUD8nGOEk rkhin027UeAqy4zwUIBh mHGnTYiePNQ0A41dm1P0 OXEfNFJiCKA8yZE3 gW1ofDvmmynliKWuzYow wdAfgWkhWHdzEDmfX791 HDGohOjhPiMmYMt3Y9Rn Bsn3LLSbsNxsUE7n xLHaOKmeYh3jzOipaKhn DR3aPLLkclhiw483OmUf o4onNGNyiGIwQIfeGFT7 I76tt7Y3HSBfICGb NIN8yMX3sY9ysIurrcwr bGVmdDsgdmVydGljYWwt VCmlP092RQWzcAmaFuHt bEc2F8ZyBsx5FKYj jMywAF1rvEQkGXqwLq8h vGytpGiuOB2rPXNmfqxq q378QcKjr9yoWHKchHYi JIvbZMH2R51ke8Y9 VCXlFGZqKBB6zZW2rG6e bGlnbjogbGVmdDsgdmVy lTfrTJgmBQoqU871YKDk cDsnPlBhdGllbnQg TFkpRQd9Q1FvDhxcnOM+ OV25PPWzQE39xMRpvQKv c1zimZt3HdOoZDEaZWI9 oJbsZCsyo8MlAHDa V20dxNZal5T4KYGtaNck qBHkDvAqbYC5rR6uHJjq rfalm2wmpohwJfash8kq og16bU68L15nYThs ZHRoPSIzMCUiIHZhbGln tk9fsQ6dQu1+PGNvbCB3 kVW0sU0kRLBuYuU5JIjx L092TsNefITlIhhb h8adt6czkLm0ItM6ZLZk hzSglOckQGM3z4PtTx55 E82wCRrcDZLmKNTrDDSs IHTgwYhvfh4zwU7x Ii8+ZXGvuSR5jLI3rJ1z JbLqGmM2KQcsZ564OqBe jHVbCghlP24oF4KuyHY+ OFYwFye5ACJrzPia LN0zwZUwBZvrIb4dGMU9 CqHeAnLmHVjnD7EwTMFn yapiiiykdTE9ANLrCNDy xQ81Zb4tyGpoRMTr mWHThF1muaqvq1kgprtn HrEyAVCvYTe8ARf5YMIo sAklUfDqQMG7FsL2BRD3 wEFggJ5ihRizshft uQ2dZ7FbHNXwreilTg45 mS6yHrAtZgO6HByiPvw+ UkFUTElGRiwgREFXTiBN QVJJRTwvdGQ+PHRk KLR7pOfsWBigOBDbjY3d YSHxO1l8LkBpYmD3KErz V4CvDNNlekmdAi55lM5c GnAxOpS8PZqzL7Ne oeZ1NUUscYMpANivRMW3 J98cj0H9XKVaYJIrWHZ8 yJH5sN8mmKvgdrdkmZEf dDsgdmVydGljYWwt TZpeD240LNYllXkqAfSk JeZjFhV5VPp7M6KvPdc0 BLIhvAtiCM5vsHQsASgf Ix4mkVvmcTfjWB1f OWMordmqEBSqkE4fAYUe aVArgIryTE8rSSUcskau h571KzHoFQY2EMNxkZMr Y2XpaD1tWnWsXKEg OOCjA8WpjPGhGXwqA782 HAamJrO9QXMhecUjZ3Iz LBDwoXaeWbQ6e7Z7Nc4j NyBZZWFyczwvdGQ+ EFSmNKE6yTckLCvlQANa gL8wYFGaM8l8LtPxBfM1 FBbrR8LfHKYpxuavTh56 jP2oSdXmHrK6YSqz L5QnrkA5GUDscBZnFQht MGT6H65ok8B3JHUjPSSe CGK9vVT7aB8fcAovjxky bGVmdDsgdmVydGlj YCafNYjkY565HPKqgTgm PkZFTUFMRTwvdGQ+PHRk UIY8bKgqBJgjOVQcxD0k MHSlA3i8IrRxUkL1 LYpbA9NfUSNfmxtrCs39 mL3jXsNoMrA2FRsmW9Nu azQ9SZUkvVUxAPjhRFN9 N88xp0S1CWBlMRLo UKS6yUG2tY6ozFnqrazo bGVmdDsgdmVydGljYWwt FZexM280FXHnqDncZnGk qUGNgDNdHRO7IT70 TS81C5TrRsvlwOWxbLZ+ PHRhYmxlIHdpZHRoPScx JZTkVhZviVxoJL7hHs3e ZGVyLWNvbGxhcHNl WxDnk4bxOSGjLBklZV2s xMfiE1QwoSO9TITzo1d5 Uv46E93oB1UygJK+PGNv kTO5vAR8yD6uEuQh CrK7TMpyV015PiAbgNXn Zkzzi0hui3ufoFm9GpYy TPBrrySooEjwKHY5g8La Ly67V36kWAgkIOJt GTSxYBVsADJqwRrlmb9m rZ7pPq7+AGTryRW6cDK7 aJ7cNmBgAzF5XJtoT106 CiUtkSFmUkmiP78b J4UwgVR+TYLnAxr8TLGz hJuoDR2jtTCkRGbmGu4f GED9LlVkQmKgICfiC1Xl ZGRpbmctcmlnaHQ6 ECOuEGFtfP60St4oqBlf Op4qNOGiMJN3MOIlnLRj E0GjhV0dPzRnTSVjLQRp S7TxoPKqKYzlC960 ZBfjPqQ7QSCnipObO9Os SAOohGmhNxD1b3H3Az7G aBkaoFPvHO1fYaIiWBp7 V5QrEuk1ZLWpnUep MU4kpEUvKHctYs4wxRpp lCnjZU2vJAEpctoep354 YnQqr8lfUHPisSBbSKpe EBK5C34xn1M3IYOk UQDgZBV7aHR3lY2maVcc bjogbGVmdDsgdmVydGlj BAgkDXqaR318BUJplGzh GbLNTpd8H8EiIho2 NBOnrOfcTO7nuZAqDIpb Pl1slXptcGdxQW0iKGMb bgtml561MySsi5toZIYs xQWfLYpdQVJ4O61v c4H1MFEvPYYjSMN2rQG2 bW1wlIbdlajhxCDzsWwn wbWsqLkpXNkdNIprJ264 NYQiiNrrQl9DRpo2 I3LfRku5WORjmUccTB4a tHLwZCiuSi6kcYbbvZsh GL2zEXZbzdphm320GiLj t1opYVIbhDQyODii TIH3D79wm9N6QWEkOMRn MYZ5sQU6iK8nyIhviutq bGVmdDsgdmVydGljYWwt ZUkyC652SAVyfDjd PlBheWVyOjwvdGQ+PC90 ow91Y5CrHpevHir2KSIg FGK5qRC9vV1cLDZcJAzm m2U5bXD2G6CgcvZj ci1 (more content not included)... [facility] Progress Note - Nurseon - Progress Note [...] on: 01/25/2024 11:53 EDT] Jose G Sophy [facility] Coding Summaryon 01-02-2024 Coding Summary HTMLBase 64 ShislbzvULz0jMu+PGhl YWQ+IB3JHPDsL78hbBHs oW2mL5WELFiVWdcoIJJQ QTrPYcMrksTzFP5ykNTq ZXJu IC8+IW4tMMRvCcvirMXy t5Q2vON2O90evz0hQYzb nAP6LIQwKtOonzgew7rn uQo2DXquKwimSrEy XBLtfH17QWH9zJ18Oa65 dXFkhEEzp7ooaEa3TvTz VXRhLDQ5mDfgXQfct6Xe XCFgJ27yxFMdc5O6 IGNvbGxhcHNlOyBlbXB0 xF8xCTyirtjav6dcdkmw Wgb6oo96uRJul5K5gFC7 A4TsjeH7AXWrkBIv YgccgCGMhE8sqxbmx5mm jfidKoUuQPCnNDl9FYq6 GKQdfJstKfAxJZ58BUM0 ATVciuQlU6WwDFKp rNmrEjV5g1W6Du7ZZ1HL ZbnfD7TGSOEONBmhnMB+ HY16no51R1DyEnwlAcc1 EWBpYUT6aIM8sX1r OAYaLMqrz9Q6zOG7O6Mz wqUndc9ao6daWAQhCNoy S42vuNQro8U6ZAZbkNA8 YDGcrSoeBpErhO94 Oyc+LRQqcZnco9CdOkqt r4blw4exeRe7JztoVQMw hoBjsXwyXQB4l6EiYw4u FALacBZ3rYD1aZ0u ChIgKuL3QWupI021UlKy kOIcBufcB12tQ3QrmCH+ IUOxAtv5JGQhxXacJM2r L8IrTLUgsdyjuILj rHrxXJ9uURMixwndWEAe iU5bJEMmX0g7FkXaNaX8 MTxsI2QlZIRrdgzgKz32 iQ2tPtGsJgS8ICle Q4YbflZ2CHVbqBTkJLfx TZK8B60bi8Q3GROfIXWz AID8qAY8wL3npWsxdnty bGVmdDsgdmVydGlj PCfqSUcqN641DMOldMdq PkNvZGluZyBEYXRlOiAg MDMvMTgvMjAyNDwvdGQ+ MGSiZDV4sRtpEHOz vKRpEZobRi8maRyrfOoc XH8rUNFmzhapAVLrdZ3h SVTgzECudMaqVV2nZNBk haymd854RfKkSYK5 TSWifDLkF4KuqU8pBiRo WTBcQMUeA3JfaBKrGRld J934JHkyRvU0IWLgpiFu T0PjXHKujLygIcU4 v8I6Oe8Ej2QsqgnbK9Sk tSSwKrAbGzqaPPr5E2Oh PjwvdHI+NS25WGJsPP12 OFa8AEB6kDsfACvd QGQcH4PdpP4nCmOxLPIi ZGRkOyc+PHRhYmxlIHdp ZHRoPScxMDAlJyBzdHls XJ7iRa6dLPRgQOYb vZhqmBSxQnWil2ihSTJo CKxrNL3ucInsM5NtcQG4 XYSfj1u0Do27M10wX6Tk dXA+DYYqkSD7bCN4 mO9rDuHxEiN6AXmeX643 RtAirXJrFcdzy2jzf7le mWi5QgC0NBSttzMhfZtk IUL9a6EfDy38Z63t IHdpZHRoPSIxNSUiIHZh yTemkr3xqP7iAs8+PGNv kIZ8zVV8hD0fHmWiYbP2 BKdaA633GgNowAYw Srmok1atp5wpjYg7FfPe WIYvgoEftRodTPT4i2Sv Vt21R2NziRvrq1VaDkf8 xe17gDGag6K5jRB7 N7OiRWRbcmawlXOjrUib TR3aRGOwtufdNGCmeZ6g XVUqU1g7KoAyKvJ5FOzg S7FyhoB1FILkkNXu ZQHxnRKKgH7yzvsox5mt lypvXuBbMYFyYEp8BMr5 IPTxcIuxXnZsUPS2PhT1 JGO9yVUynY1vyQco nocbfN0cYzt+URD2bAJc wWWUAM2uJpjaqMW+PHRk CXB8zQoeMNrrBLTqvG6j QTWuF0e3GaRfPgW1 LBipE3CjjfZ7USOxoXRa YGHhgOEMkH2patavv3wy klauYiLgNPGdHXp4PVk3 LWFsaWduOiBsZWZ0 EzY0QAA9lOQmsX1ifVdp uvskpZ5zEee+QmlydGgg WHD4CRl3T3GuRzh5AWGz xPqgKN9zuJUmJQwv Es1wvAsbuZasKU3vLVDm zatyi299NnDnm7vkWYNd zWYkGGxuJCR2R66hr1X4 MUEyKEYfTJY3vVB2 iB0cmMkaqaxckEHtiIkw cvMujRtgNGerXDmyV797 VKCdrGilYfFfUGn0O0Wg Juv9YZJqxVvfNE1k uOGnFFptPf5noRmulQou LR4fBOWbshlwk236NfEn p5dfUULzkOXpQKiwVGG4 H76eb8M7PJVwTROj FAV9dMQ0jM9heHepimgs bGVmdDsgdmVydGljYWwt FIpgA559TZEtpXkmXzIm tNo2S7QuLhd4LCKe vEraJV2rdBZdVKkdVj4t sWanwMvdWK2mVOJgdzsu w705CuFkq0skBGHmhHJe MMlaHJI9C69ib5P2 BVAcXYRhCOT9aUY5fX1p bGlnbjogbGVmdDsgdmVy tEmeLPwoRXtkL889AWGd cDsnPlBhdGllbnQg AEggPCa4W9DkNunewOF+ HX74IPFxWF59nLDsjPCr r6gfhIi0NeDwOFNhMBD7 lHmmKHzij3XkPKPe N91fxTQzt2S6WSUqxVdh aTIiNiHjdDN3oW7qDXuu zilzs3gaiopgAydmr2wi wf81fU08I66tZFpd ZHRoPSIzMCUiIHZhbGln xx1suG5fVj7+PGNvbCB3 sXZ9xX4oJCWdLmB9PWmb O809PuLxaQEaXlef t4kqa8alxSm0NhP9WQOg wmPtsWpoOJV5u5VrZh30 F40pBAxrDHHiCACmJWSa MSPncFesih4jdO6a Ii8+CXZujFW5gYU8xK1v PzRtUlO0UEnyX639XnXe fFFaRbpiP53qT4WzjDK+ GNPdDze1MQEqbSik OG4wdKUnKAmsVy8sZOI8 CgEyDhHkILmaT6IfVQRs mqalzmfkcIF3UPFgSOAn vS53Ni8xeKvjNTCs cFLBeY7vddtvg9qfqknq OfAwZOUaOWy1IUg6HFPd nPxpWsKqXAT0WmV2NBV4 oSIpkR2xrMxtrqnl aC9oZ6QmXNOxwjbeFp87 vT8yBjNjXtR7XTofPox+ UkFUTElGRiwgREFXTiBN QVJJRTwvdGQ+PHRk ECD6eSotINvuLAQboT4v ERPsE8c3ExIbNgR2JMua Y4EtLJRgkykiQm92cO5n BzAsNfY5ZKtzB5St zyJ3RLVctUItHJhfBML2 K26cv2H3TXVdPSAiBGH8 hRM1aH7wrQvrzijzxYJy dDsgdmVydGljYWwt WHdsH083MCKzsDzrSaBl CcJbOkJ8PUm5E9OyDkx4 ODAqcAeoZD6usASsDOva Zs0eoEjesIbeRC3w XKTaxvkmKEJiaH0cAPMq vIKgxUagUS5kBCOoehct x182RdBrXAD6JRBmmWSk I6DxrQ2xScSbLZFj DCIaH8IiiVYaGDmlA437 NUhiZkT3ERWltnSlW2Ic SSNudJlbBsS7l3Q1Nz4m NyBZZWFyczwvdGQ+ LPUpYSH9yWldUZbaOAMc uK8wODIhR5d2DyAgJaY7 XHfvU9FnAJLxztoyZz45 mC6iUxHeBzG7BGwz Q7XvrqH5IQQklQZsSDkf FBU9U55xx5H7MILnLONe AHJ9jJG5vO2ceLzezeko bGVmdDsgdmVydGlj VFsnIZjlZ201QXJgbBit PkZFTUFMRTwvdGQ+PHRk CTI3cDdeRWlsEBOtmF8h HJOaP3c0KpYzObV1 DMpkI2PvIJFqbpziEs69 rI7rClYwUqT5JNiuU7Sn zzU1TOBflMPvXBvyTQW5 A62ur8Q6PWOiIMVc RLT2sSF2kB3dkHgqohnq bGVmdDsgdmVydGljYWwt QUgvE953CQBpjUgtOuGm lYOKrTUgRTT8FN55 WQ94C5LxIgtqyTXixRH+ PHRhYmxlIHdpZHRoPScx ANNtVkOxmNuaAP5vYo9m ZGVyLWNvbGxhcHNl XfLkt8naSFAvSCzsFI0g bShlI5WtkYT4DMHvx3t0 Ra44F23wA4PenVM+PGNv kYZ2pAK1qH0gNoHu XzB1SXogB960RoTdiFPe Qkgjs4nnj3sqtYt7JaZr FPKcmyJhoYpsLKU7u9Xy Ct43V15rPDseKBQw XNKhNKFuWCMjoNlshz8o iT3vHo6+PCKbuWH5aPB3 xL3aUfGqHuO7NFkfH539 AuYdnQZmFyioS13w W1IpwRD+OZFcGzr5CBFl hGxlNU4xkARlGQnqLx6p ENO8CgZdYaEwFHviK5Ks ZGRpbmctcmlnaHQ6 PEFvTMOlkR59Bp9ddMhl Mb9mPJIhKJN3BGJzmGVx M8OztL4fZpOzAQJdQJDk E6KopYWrMUqiP776 GPbdWuW1PKIpvxEzE6Ru HCXsiWyqBmC1f0W1Nw0A dEbfhWAyFZ6hCdBhLBx4 Z3LlMei7QCGzdOwj UM2wdBAkKTwcAr2lcEyj kNfvUG1iWGTtquclm685 ZtDje2sfTRXmlLQmNOzc UII6H69tg3E4MKYk UJTfHWC7kUT1yJ4juPyk bjogbGVmdDsgdmVydGlj HAacQYgfX984BXYthZdb WyIENsv9C5XnDeu7 ENLzpQwfEC3inOVeURsu Vv6zcUkxgMenJE6uIQZi hbqga534LbIza2mcGJGu hUAsUBnoFYZ6L09n i3E7SDXxONEsQQY5wUJ2 cQ2fzRdtfssouHQxhJun pwXkvDyiZIjcOBroV726 VXHmaKarEa2STfp6 L6NdJvk2ZWPvyYaeCO2t dEGqNAbzPx2ciNjklJgb JW5wFNDkrscds361RvKl a1neTTKotQVlSCgb KBS4L81tb6O8GBFhCRAo NOF8iHB5vT1rtEvulhqd bGVmdDsgdmVydGljYWwt CKfjF211YCJosHki PlBheWVyOjwvdGQ+PC90 kf62P1DpCalnLyi1KMHk PBQ4sPC8eF5tRUBqNSzf z4E1iGT0Q4ZizbKk ci1 (more content not included)... [facility] Coding Summary HTMLBase 64 AxcbikvoZSb6hFg+PGhl YWQ+CK4SGMUlR17siKJb fM8aZ0IIZEzOQytqCKMZ SXkAXiVqufGxDW7epJEc ZXJu IC8+PF6bAZYmItgttKAe t4S7vPX4W04jbq4kPFhs bZA2IUFgQqBjdocnx1mn yMh2SQviHpunJoGt TJFwzJ10LZG1uA18Cs39 hGHblEKxk5rghRi9TqNs NLViPOI6vMjeUDfnu7Ve BOMcE49vyGZvp9M9 IGNvbGxhcHNlOyBlbXB0 xC8xLUuvmorpy6tpziwl Jxp9bx22lTTkx7P6bXL2 B4ZhrvY0AOIihSVi DpdrqFBZeX1fpcnpm0sx rzkwNfKnKLGoAPa6OGk4 UUEuoEouLlWiCZ48GJP0 FZLjmuBwN9EiVYZe vIiuLkR7g8E1Vd4DQ3PA KelnR9RKULWNMRakrHU+ HX98ca61K8BfErirQhy5 SQLeKLK7aHZ3jS7a KEJcPEllr2N4eLF6O1Jw ksFzuo8en9otONTpYZrk E60phJRkj3E6WUSswZY9 TQQznYetZsWvdN78 Oyc+AHMraQalx1WtRwwe e4fvw0zekGw2OgxiXPEs bwMehCcdSCA2f4CmTi5m VSCfnDB1bGZ3eO8a NfGtGlS3KDamS324UsSa dDQqKzxlO26yA3AxaIL+ ODSnCaj6JFOguCunKQ6n M2UnNBEonithtQCj hQkqSM8vNSJgznxcBYLs sC3gHWDlE3z2IkJkPjY3 LBhlR6RwKPIepbdhYc74 eM9zLpJmYyV0QTbr C5RrhoC1EZRcmOPvFTtq QUC4S22na2Q8LHHeNCHn DCV7hQQ1oD8xgTlcbjsi bGVmdDsgdmVydGlj ERfxBEjeI797LKLfmOlz PkNvZGluZyBEYXRlOiAg MDMvMTgvMjAyNDwvdGQ+ SCSfDJR6fColRVHi vRCuZNqoFc2pdXvnnVic NH0oNQTdzconAKOrjO6r LPTtlTFufXufRP9wSYHw dmddl727IbVpUWX4 WIXzcXLiL0UkeZ9tUaGv OFKwZRUxP4GhsMNfUUgr R351SBpsXaO9FOXhykTi G2IqFLGeiUzcXqF3 n4R3Zc2Lr6OynbqgB4An jMGkJfJsHffhXIl5O3Td PjwvdHI+JM24ZLGiFN52 FNc0GGY6uKshVNnr FBIxR7IfqG6fCtPdOBZz ZGRkOyc+PHRhYmxlIHdp ZHRoPScxMDAlJyBzdHls PU5zDj0uDAEzYEEe kUnleVAeLtKij7xvUJZt YVinSQ7btFqfE6YajXB0 XKUbo9q6Th45I77kO6Oh dXA+BJEllZV5zAB0 aE8yDqHlRwF5QJwaR357 YjYueMRkJwkpt3hoq1gc kTm9XpQ4NULquaWimSwh XOJ3e9LkFc33I79j IHdpZHRoPSIxNSUiIHZh xGtvkt3giU2nMh8+PGNv gPV9bPJ1nL3vJzQhEdJ5 RMaqY686SzUriVQe Arrzi8cpa9huyKj8ZaVc ROGnejRhbTnsNOQ0v6Hm Hr72Z0VpcKuip7EqVpd2 xz02bGLky0E3mEB3 W7ZiMCIovkiexCUvkAtq BK6uOVJyirqqZZSprP9s ZGJpV5z5OoYgDvQ9BSon R0YalpC4IHVpcIPh VZZbiJGDhP6izmfeo3jy kwfmYgBgWVOaKPy3HGi3 FQRxoFwaNuEdHCM5BgC1 VCR2vHTpyT4poCzk ixyjzI9jKlt+LIP6fHFu bONFVU8tJplsnTA+PHRk SXL2eOrsVXszMJKwdP9r GZUxG8b3GvBjVeX9 RQqkQ0KrxuC6OXHnjAWr KVBfsLNUlY5goruqp0hu gjkiXuZuLXEbIGn1IJn1 LWFsaWduOiBsZWZ0 NuH6OQI9dZDsqE3wiRwz nxlwkJ6nAqi+QmlydGgg MFQ3QSi7U7VlCqn4RBDa tJgqEG6dcLVmVJpc Lf8cfZgveAymJJ3tMSOn swnaj302JsIgy5zdHQVc qGAvJPueJQN9U88mb3N6 LARfSWEzASY9sTR4 oI9lkNugwhqenFBezJqm yqOzhSqhZLfjWGmwS519 SYXopFfoWhNvJBn7I0Tt Fyb0PCMljQasWS9i gONuWRpiRa6pbUmboKld AS8hGFHbdmqau580HtIn n6bhUNLypOErJBbgVFJ5 Z02ya3A5CQKcDTOw VZB0rRC5sX8daMvzkamt bGVmdDsgdmVydGljYWwt ZKvvS100HHDflChkAdVn wOc0U6YbTeg3MQDw qBvzAQ0blHZqZPbiGr9e aLbxsWqlXH1aJZIxdisy m141VoDkd1peEKZxeUGa RFsePLS3B68zs3J2 NWKiSXRgHNK3tJW4yW0g bGlnbjogbGVmdDsgdmVy pTljPWoeFQkqL499LLYx cDsnPlBhdGllbnQg HKclAHh9Y5JwMagjcQT+ SL15CXAsBF68vKPuyQHq v9praSx0CsAtXEEtERE0 oVkxNDohu5GrFKYq Y93qwURjb5N3SELfiMqm aREkCyMedKB7lT8aYNao qnadd7dtsmouNeatc8ni gl63rF91X83vDLid ZHRoPSIzMCUiIHZhbGln mh5ceP0rZe3+PGNvbCB3 wJO0rE0uWEOsPeP5KUhq L499WhRfdSRzCihs e1djl5zhlRe9SoL8JXSx upRxtPuuAQI2c8TdTw10 V70zHGeoOQJwRDFjXFYi JVMqgDaymn0unI6t Ii8+GCCreSO6kJT7pQ6f YoYqUtC4PBhaE574GtTu iYUdEulaT44iH9QbrFI+ XIFdStq6ANMcvFxk XS3ugBWcIMfuNz5kHNY2 VuCeEaJlUMmsP5EaWTHo fvffrtipfAC0TAMkGFXy tI95Bm8gvFymOGLd gZNUrV4ifuxzl0qjmwzn YsRzJQSzMJs4NLn1DUUi jByqSeQbVQM3QjT0CBS1 xJFlbT5gbLcpfehe bT9iZ8DgPXZexdssOj15 dK3xTcVlZeU9NYrmDfl+ UkFUTElGRiwgREFXTiBN QVJJRTwvdGQ+PHRk IXE0nTlsCOheUVTrfI9g HMWsM3x0TfUlCdA8RYbb N8PrZGGxuzcaOl70eK5d QqQlCjR3SOktY6Ph cqS6ZRMsdLSiDUhdDRK9 W34ez6H4WWZeSZNiZTS7 gUZ3jS1thSclyeiepFXw dDsgdmVydGljYWwt ZAgdM362AZAxgFrqRhMs InFzYcG0DXf0D1PnNbp5 PSIevGbbSZ7xzAMqOSfs Qm5ewDwzwNviKM7v WTQvecqqXKNgzG2hXFWr bTNosDcbYC1aYRDrejlq q850VnNyCUA4FYOumZBi A2LepL7wHyRgQBWn PIMiL1CadGWjMDmrV361 RZetMyP5EYUwgwPjS7Fb UUHveTboJzT0n9R0Kp6l NyBZZWFyczwvdGQ+ RCZvWFJ6vFoaMIafAZAk dW4gNFNkI7p0JnGcRiW7 BYzrR8IaBCBdndbwKh01 mO4uAhEjSzS4GCyf C7QsodO8UNCxpPMzICgh MKH1K64ms3F7NDJvCVDa HEP3dGK3lN6fdSieszua bGVmdDsgdmVydGlj OVeuAWxpY283XLOnlQra PkZFTUFMRTwvdGQ+PHRk UET0rJqbHYatMFHwyI0h DAJzW2m1XnCvPdX1 ACmaQ0OxAJEnppaqJa23 kJ9rLaQhArX2IFpkY3Ux ieE3PRRvwYJyJLbvIRC7 O39cg6B1RMByREWh ZVE3sZP0qH6hfNrlijjg bGVmdDsgdmVydGljYWwt ECdqS559URJwyIvcJkHf fIYFuLRoEMA2JF01 NA43B6ZiRdzmzDZjnIL+ PHRhYmxlIHdpZHRoPScx OCRxBeRbhPemLO0mAf3w ZGVyLWNvbGxhcHNl AjIor8phNQBxVNgzRP5c eQbvT8XvqXB9EZLec9q1 Pf10U09cS8BbmZI+PGNv oHK0eLA8lW1iZtBn MzN9ZRhxV525ZmTsuPWy Yldqz9ius0ktaAr4RdDc LUQuqeScrAjjKVP2u2Jy Pb88O92kXXzkVSDa PEEfNWDxCDOzlGawyt3g wQ8hLf0+UXYwvUS7zPW8 yP0lCjEbLrM2QNjoK317 PxVvvGKmVojzW35d R1RavMA+XHTnPih7AKPc zBfrEB0anLGvUFceDm5r VXG9YjIiLaCzGQtoP2Xz ZGRpbmctcmlnaHQ6 CCRhWJYqkO66Cf1thPxt Fo0xOGEmCWX5RFJevOXu Y0XkrX1lHeUkRXHjTSVl T4TjgDXlAScoY031 VAtfVoZ0DZYkghCgE3Su CZMylUpmMjP3i2T0Go3M wOvtpOWcNZ1kQgIpEXt7 G1TkHxq1UZMyoZyy OC0kzCLcTIcnZa0vhUfu zYocEZ6oGXYtocwdj972 XuBwu6vcNQUygEFzYRvp BUA6D75gw3J2CBFx MICbARE5hHM9aN8ujZfw bjogbGVmdDsgdmVydGlj UPxxIQawY565UESavWmw AgSDRyq9K1XiNyn9 SUTbuPfuUN1vkLWwCMhx Ym2cdTqzcUluHP7mDNMr ofzqq065CxZrn5faGUZp wHJqHQttUXB7L26z q1Z3KXLpPZIbLMM1sHB8 qA5zlPztvkhttJUgkRnw vjPhqLtgBJcdUOmeM780 IVXoeEcaEl8PMqm4 H9WxZiy8OOLusGzwYE9d pHKrIHqrGb7bhKrcpRrh VI8bSHFdefofv016RiPr v2mnMTNcqLCdSCht IXY0V40ai2M6EDCpOFFh UUX0uHW9jL4pkNccbdrj bGVmdDsgdmVydGljYWwt YXkhB816YSVqhQue PlBheWVyOjwvdGQ+PC90 er14F3BwHartDlv4WMEi UVR1lUG5xS7cRCZkIJvl f1P6aAP9P5EattUj ci1 (more content not included)... [facility] Provider Orderson 12-29-2023 Provider Orders [id number] .00OTGTIFF [facility] Progress Note - Nurseon 12-15 Progress Note - Nurse Pt arrives to [facility] in accompanied by her boyfriend. Pt has had no problems with catheter since we last saw her. Pt tolerates cath exchange today well (see BRIT), and was discharged to home with boyfriend. [Electronically Signed on: 12/28/2023 11:37 EDT] George Atwood RN [Verified on: 12/28/2023 11:37 EDT] George Atwood RN [facility] Coding Summaryon 12-01-2023 Coding Summary HTMLBase 64 HboeycqqZXm8vSv+PGhl YWQ+UK0OOMRbS42ejPGz pL8wG7IUQDlMLesfUPDY KFcMDzGapbJqYV9liMHm ZXJu IC8+DT0iUUVcAwbieXQe d2F2eNK5U66jhb2qRHke yIQ3OWYdTmXkfslxr8ew bSx9MLjrAfaxJyLo UCCswO63QTI3rH14Te26 fZMvhEJvs0mtpYg4AlAu QNTaAQQ6dUwaNVbzt3Ba XYFhV23lxSLzv6L0 IGNvbGxhcHNlOyBlbXB0 dA1gTNiziwrfk1vqjlvo Zko7xa42kKLeh3Y2fJE8 N2PyzeG3VBVtwKVk HuyjcVEIeR6zadstr5lj xkkeDzWqGYUmEOq8ZTq8 FACviMkcJrXzYF31ZWY9 XNTeetKwY3SiKRCq nZqvDvF3q2E0Dw1MK0ES OqraU8TRIAKMEXnwkFP+ YR16wq97P8XdPmgyWrx7 SMFoOKN3wSH6aV3j QFYvRJqlp5P0uBR6M8Rg pkPtdf4jk5gaPNTrTTef J01iiHGsm2N1JHKpnRQ8 DPFrtVdsWtLesY73 Oyc+KSQuiWrxo3EcEens z0leb3areNo0LonfGXIo asZfePusZYT4q9YjHe8e MXWwuGC9aIP4sU5b WkFfQcL8SVqhT818SdSq qDEvQviiY60pV2HjxZU+ JRVaKer0NLLuxXoxGU2m D0AnLYUthxfatWWw zQnePI6kPVDipacrWXFj pE0fEPPkG2r6CvGjUeD5 RKfnP3QcGKQjkngqZy87 yA6iQxHxPiF9SHes R8PhszH8XCYwoBYqSTlb DVS4N16xg9G1YOFoFGNs NAI9oFH8bE3owAgsjhwf bGVmdDsgdmVydGlj GEjoWIraX856OOEbhYuy PkNvZGluZyBEYXRlOiAg MDIvMTUvMjAyNDwvdGQ+ CAYjZIE5wZrwOGDb aGFkIIkfBc9ocZnhtEwb AH2vRDVaabjdMABeoN6n UODchRXbcYuwHU5nVUHp dvsbg689LgYeJUB6 OGTpgISxL7DifQ0aZnOc IWHuCRIwQ1UvkWEeCTzf T821YVvnUkG0FNNkrgTu W6RaLSKisLkbMrF6 v8F4Fi2Ou8FlfxeuD9Ho gCBoQnIuEyixLEd4Y5Gw PjwvdHI+LC90XOXsKV05 CId6FCK0sLbvXGqm JNKmC6KsbJ6sAfXeJHDb ZGRkOyc+PHRhYmxlIHdp ZHRoPScxMDAlJyBzdHls LK4aIi7xOUOoRMDf yRuwvLHeFlOrk8wyEKTa MHmuXU0bdGukN5ZdeIS7 ADTgo4k7Pq71B57lL4Kq dXA+SRUuhXX8hLC5 mQ9tHhJbZqK2DJrzP223 FxJcfREnHmnqf9nwl6ta oEn9SfR4NOHqawIfzAvl AJM4k6TuIc96Y61v IHdpZHRoPSIxNSUiIHZh lNgvfw2esH3bJq4+PGNv aUO7rZW2xP9jGwToSgG4 OWrxT726HmAjqXLu Ytetg2pli8rlxQh6IoMy TWYmxyYwnFzoMMQ8g8Ht Jl41A0UflDzip7EdIdf5 mx66yEVba1J0eNA3 U5PfYFGfzrwzdZXcfOjc DO3wTDGqhcufVMRcfW6b XDJvE3w2KvJmArD5ULjj L1TakwZ6TNNhdKHi EGPppIOHaP2irovow1db csjoOsJaJYXzFAr2FXk9 AYMucGwhVrBeGQR0GnG7 EIJ2rAYruU1wiDmk gharxX3sZav+SUV3aICj iTRPAC7gBjpygEP+PHRk YJA3mZmaOAqaXKUcgV4j FJBtD1m2LmCmXvU8 GKgrZ4ZkskN8MCOqdGHw DFMxsONIzK5oviuzq8zt vegrEpGqDPUqWUf6JZk3 LWFsaWduOiBsZWZ0 NsN4VUT8wMWcvU6bmOpj ingaxN7nSoy+QmlydGgg DGY0TFy0W4JjFqb4UOIv xJdqIT6czZUuOPrx Sd4rsGgilRscNL3jOJQh eupad924ZmToe2hgBQOb rBYxJWthICX6V28fv2S3 MAVvDWYxKNW6bQF3 vI4keOashemjjYZnnYws tgSbkIjsXBoiUZjuW818 IHKsvWniGrTwRQg8H8Ex Pax9GFJcsCcyWK2f fMNxBQmaTk6saJagbMad TX6vLUVlqwczl535CqUu e5glRRHgkFFdDYpzWJT0 V28rd1H6BZXqQOSk TJE4rDV1pN6ctKadcves bGVmdDsgdmVydGljYWwt PPixQ991RNQxlSkqOkCf iKo1W6NpBec8QYTo gIwdCE0gvCRzMKuwJu4a wWqdhJdnZL3lDUVlbnsr c325FeLua1zvRNNugGMo TFurHBZ7K87sw4T0 BZJuHGIvWYY3gYW5yG0o bGlnbjogbGVmdDsgdmVy kXvqAYwpJRfsE382JDCm cDsnPlBhdGllbnQg HIdcLEh7Y3NrVjtifTY+ BN07WRBuZO59rFYgmFCf i2oifZi9ZoWpKUSfOPA9 fSqbLPffq8QkCTHd A56ntIIqn4W7HLNamYxv dIVlKwJsbNR5lK7rEFnt ddpla5qtwdmoTntqe2ms ku81cH58F28bKXum ZHRoPSIzMCUiIHZhbGln kh6asD7uZl5+PGNvbCB3 vFJ0uJ9cZOLmAtN5KBve Z315KnFegJDnVvfu f7ktw0geeFm8EzR4BJVe kjUzsNepAAV5g1TnGa33 T09mYNirRZGuFMEeAIKj MJIgkUidnq0jdY7a Ii8+CXSsdFJ4rRF3nZ5h KjWdChL4MPaoF545TqWu eOHjZahcS33mM5UopZR+ IRJhJay3QXMgrBix HS9gbPDwHQzyEm8dDRH3 UhBsUhKxXFqeC5KeNWRq rgmaontfyPM9EKMqYZXu pJ61Pw9cdTwzZJJr iWGOsQ5zcohls6fqjegu TiJePWNnTVj1CXk0SUHi mMhtZoVlRLA4WnA1QYH9 jLVpxB5qaCwsoquv jD8nX9WyVCLljobfEt61 mU3fHcDnXcG3GTojMzk+ UkFUTElGRiwgREFXTiBN QVJJRTwvdGQ+PHRk CBU9tAmqWDibIEUmcR3q EGFfY8i1QvIfEaR8HGhi S9XbZPTybvetBf03tD9i ZxGrBhJ5AViiJ4Ch vwP4AIWhtVJzVGiqAJB8 P64wi4C8YZOkEVYtTGK5 mNL3gB1zgUdqmzajeMVv dDsgdmVydGljYWwt DTfbG823NZAppEhjRsLn HkTqMkK4ITt1Y9RiGgq9 YFIdaYjuEU5tqQLkSSyq Uf3mmFhzxJqwTL9i STQzsfhvQTKztG0bHDOa bPAybKsfBH4oZDJprzfm q149JwNgVHD2SZFggAXf E2QzcS2tLsXhLMYz CGGuB9YccKNbPWtsL904 IRioLiC9DVYexcYsZ4Mf YQKztTrjPgR5e8Y9Qp4d NiBZZWFyczwvdGQ+ BFPtFRD8gXufVLfbNEHa uW5yHPSzA1q0WvIaOtP1 GRthX2MfVXWkbbvaAn88 uU4fGnOyTbH6KNjm X8MorxF6EKWvwNZhVSri NII6W26cd7P2YJYxZUAd MCX1qLJ8iB8zqNmxyrph bGVmdDsgdmVydGlj GHjjZBewB228YSNldLlp PkZFTUFMRTwvdGQ+PHRk YXT3xVukGJdrINEicK3l MLVsP4e8LmBgTqX8 JHkjA4UfSHQptnjaYd32 nM1wDkVvCoC0ZFizT8Ep wrL0TAVirRQqQRkmZNR6 U47bz9O1AHGtZKWq IZX5bNR0vD7jtCbqsagd bGVmdDsgdmVydGljYWwt GDtkT966RZRivFanBiSp jCJGdAGrDVE3LQ43 OD13F4VjXpfgmVLiqEF+ PHRhYmxlIHdpZHRoPScx SABoHeRgaQrwCL8dCi2c ZGVyLWNvbGxhcHNl LtHho9prQBVuIJqrPA6g mOjyY2ImvRL9DMJsd8s0 Kv37L91eD5FtcGJ+PGNv rDO3jRQ2kD3qDyPy WsF2MOobA599JbSyxLSj Dutci1sez0pquFt5MtIx EWYuogQisMzrLLR0k6Fp Dm13G66iQBhrQFEc YDVcZQUlNMXuvQabps5q fA3pVc7+IWVvkYO6mYC0 tU2tRxNvExG8RAliN446 LdDkdGUtUkljR46r X4XaaDK+EMOfKxs0KYAj jWjsHX6ehDHgNVudRj2t OLD9SmOjTyGgLAjyL5Uh ZGRpbmctcmlnaHQ6 OFJdVDCzjS33Az2uxKlp Mg3pNLZwRFJ1WOJrnPCp M6MglR0dLhAfOVMlDDCf Y2RtfZQxOEpjF036 PNumFnN2DFUzxxOdO7Ic MZTpuLcoSeU6u9R7Qa2M zYamfEEvKX7gSuSgCRg5 D2QhLnc3UIQxkIsd YW5muWOvGUexWg1xgUki jCnuNU9bIKLlgityy141 IaOog4rkVMGdiJIvOEix VYS5H94cm4Q0BEZh KWVsSTC4dZK9oW4hjAbv bjogbGVmdDsgdmVydGlj EBgjWJhjB865DAKhbCnj KjRKMew1A7TqAnd2 ZSSwoTldZM5jlOFeYVcj Wj2imCtbeQstRE9nVTPv hsvzo296KoVab3whEGVw iUAfSOmiBXH1V75l u2E2EDBxTQXnNJW4eTI4 bB7uuJhawsmmiMFslVdq yvJjgZroEAemFGxsN535 GTYdcThxNj9RRux5 G5UtJjo1BASuyNyiRJ2h sIYaJHudPv9naVvxmQkk TX2oODPredtlk394OdMi g5hgCSQdiGZuRGjv UJK4E41nf3J7CNKmDLKk OWW9kZY5vW9khWgwpukc bGVmdDsgdmVydGljYWwt EGoeK414BTWxsJff PlBheWVyOjwvdGQ+PC90 so76N9FeLxsuUht7TWNa IHH8mPI9zV0mJDDcZJse a4Z6fLP4N6ZqosOm ci1 (more content not included)... [facility] Provider Orderson 12-01-2023 Provider Orders [id number]# 1.00OTGTIFF [facility] Coding Summaryon 11-03-2023 Coding Summary HTMLBase 64 GvxqkrbbHGd2vIx+PGhl YWQ+QQ0TNLXnV91hdNAa kX2dZ8LAXSbMMolwTTMX RXzYMdWxziPzBK6pkXFt ZXJu IC8+UG8kBWPrUqjmiWUb u5Q8wRQ8D96efe9iNPhd uMQ5ATVvIqWfrguss1dh mDb9KUfsWbvmMtVe WTXjqT05XID3nI05Xj55 mRPrlEGmy4cblTb3FuSh SGIvJYB2bXfnYArdf4Ki FUKvZ76afZQxe4U6 IGNvbGxhcHNlOyBlbXB0 sP4hHZegxtsow9jpxerc Wtx1ua23kTBcc8R8wQQ6 R0EwvqS3LTZojLKc XeuzkEGMxK9qfzfei6vy qpktJpByHJBjLVi6MMb5 AAEwjRuhChYaHR09IWP0 EVIqdvZvV7ZpDXPd qHttMsG9y6A4Kp1ZY7HB CzakM3LJZIGBCTcsdOT+ PJ12ed51P2TdCfcyMxu7 HNNeLOH5vUD9eD0w LZHjYYcln8N5bTX3X1Rc nfGvot4jn0wbVLNpSWuk G65smUNil4M8RBNmuAS5 ETDjbHktReWviQ08 Oyc+BDYnxTqzx5GcTnyk j5sfg3upyCl3JhvkWNTn moVtbXyjBAN3b1XwQl3j FWSxbXL4zNG5bW0o UuHkUsO9BGwdA543MxLs qOFaZzylO74hW9FlkTS+ LDOnQbe4YKDnsSinTE0i W8WkXGPtdatscQMx xIefQI3sINZxmirrXJZa lJ6bKMAlV5k5QlAlEmC9 AHhnA4BtBWJhdjyyDd87 kB8lCfUkNzC9LHcs G1JqvkT1XLCqfCYxTTsl TFT4J66vv6Z8DVCjGAIu DYJ5rWW5iC1naRisvbsz bGVmdDsgdmVydGlj PPnwODacU493CHDhiCid PkNvZGluZyBEYXRlOiAg MDEvMTgvMjAyNDwvdGQ+ LTBsUFA7mDejFSLi kJYbDCeyZz2hzIntwVye KG6mDYQsfdncGYRefH9o YOHfsQIsbRrzLY6eEVPi sqxys324NlAiXJF0 IAAlmUUkS1IccZ3uBbQb PLGnUYTuG8ZunHJvSBft V711LKqwZdM4HDTgskKu Y8DjVEJqfWrlOfE2 w1D8Ub4Cm4DjmnrjC9Jr rDTcEpFsJllbVWi5Q8Uh PjwvdHI+NX85NUQbMO66 NEm1PVE1iMjhQXlk HXNuE3KifZ7yAaJxHJXv ZGRkOyc+PHRhYmxlIHdp ZHRoPScxMDAlJyBzdHls WI3tIi5hOSAcKXZu dCyjmFPoRiOdh1gjTMJi ZLnoTX6hlLpvA5SkjMB1 EOBul8i3Xu71U59nQ9Zq dXA+ISFcwZP1xJJ5 wV0qTwTxXzM0HKhlG737 EdAvpVKhKbxgq9abc2gw bCm4MrQ4EUEqcjPvgTcn XZC3m3EcPd77Z64g IHdpZHRoPSIxNSUiIHZh dSrkun7dhM4tUb9+PGNv uLE1lUL7bM0vSiXoKgV6 ZRnqC241DcRmkRTc Erpuu8enb1icgCl6XvTj HGJlcvOjuXvrPZJ6q2Qa Ou19H7KluCiby7ExXqu1 ii65tIJax4Z0jTS0 X5SnICMbldgukAAsqLon WA8zJPMehnqkEAQvxT7c OSCsE2e0HyQyEtC7IFjp F8FyvbB8CCBadCNb IAIjvRERaA7yrwldk5nn fosoGmTkAZAwTLu3VYf3 YLXkqNnhKkOsXAB0NpO1 GNU1gFUdiL5gbMlc rwmkeL8cVfs+EGJ6qWQc rLKHCM2cCxeeaFT+PHRk TGJ4iVfvUMnfJSKbhZ1x OSFfH2q6NxFaQgG9 FIdkF3NljyK8JEBnpIIs WOTwfQLErG8uqcrdd0fn vvzeDhYbNLNdYTh4WEk4 LWFsaWduOiBsZWZ0 QyX3ESP0dCUutM4wlGsa gdkjuB6rGdn+QmlydGgg JGH2JAu9P7VjJfv7JXKk uOrbLI9gqWJuONmj Wb1ckAiaqLfvMW3bBTHt vmyrg778CjEcp9hhWYGt cKEzJFvqZBA9K59fs3F0 CBCnFKXjPMY3bEF6 fB5puEdrhrtmsEAwiIyn msTgyTxwIKqdDRztK329 HTDgrThuRjHyJUe6D8Tu Tzg9BCTfmSicNL0a gKScVQhzIf2juRiwwDzc DZ2iECOzqbfue763KrSq b7yxWBWwmHHlIZeyOVX0 W01wu0Q7XBCmICOk FVQ9qAV5yT9poLupghgw bGVmdDsgdmVydGljYWwt RQxeR482JETrvFvnClRy sGc6K8FjCuo9KLLr fVjfRO2tvUVoEXawZi8q jJclhQvySS5dKPQgtlav e553HuKki1zhKYOqzWVc MIydORP6W74ab7O2 SSFeDKIfSOY0hYI4xD5g bGlnbjogbGVmdDsgdmVy aOytLHrmJChmR998LNHl cDsnPlBhdGllbnQg GHokZSn9I1IdYydtfNA+ CV70YCTuQZ27tAMbyXGo d6bmiIp7YqArZIOgCRJ8 qRriNSofp3BwGDWf S53rrROnt1B9PBBpaLqp mYMdKnVriVK0uR1pHYvd lixtw4cuvkenWmjcc6qj vm06iI01B24sXDfu ZHRoPSIzMCUiIHZhbGln zf6wnR6fNx0+PGNvbCB3 nUF2zF9qXNQfTqJ9IObj F731LkZisYHnCnkt x9dgk1wdbPd7UfV8OCNi sdQupYwjSWF8e6XdOf94 M38qEXjcLTOpENMtNLXn TAMgtKitue5jvS2c Ii8+JNQrfTA6mXU9aI6w ExGkKrZ9OKkyJ527AwCn fWTdMiirY95fH7HgvYH+ MMBuSyt6ZJQkyStl RE7ymRAtZOcmLe7lEKI4 LjXmMvUpOCmbA9FbUKLm pegdapqryOX0IKFpBRQl pO64Ro9gjNycTXXd rTBAtT7pwvdkn4rclzva IzSdCBOgTXz5CNg8XFEv yWxpBmEtHXD0YyK1CCP9 xELymC5ehUfbvnnx bG8bY7DzYREkpnhkNc94 uC2tIlRwXqD9KKmzMxk+ UkFUTElGRiwgREFXTiBN QVJJRTwvdGQ+PHRk DRF4yUalSHjyYBDzrE9i UXVnM2v6MsFyQiT0GWuc A2TjIMPizsqxOc04eD0b XnTkEhY5JZsaU3Lw bcV4ZHRpyGSzGGiiMBF5 V79vq1R6QYNlRZEnGIH1 qVX1mR4ujRlyxxndjLXb dDsgdmVydGljYWwt ZJrrA268KKTuyNwxSeJk DuMhEqL6CWa3J0JiJgt8 JMKiaNkrWQ7gyESvYMtr Ea1amOhcmFqjPM2s FSGolmkwXNGqvH4bAXOr fYFfkRypPE3mQOOfmscd i350ZdIhAFD8BUEqrQDf T7TajE8uSgHaVJAm GPFmF7LnoMWlFCijE769 WRxbMtD4WCDezqLvD1Ha NUWipSwgIvI9d5U6Ak6s NiBZZWFyczwvdGQ+ VXTdKUI8cTnrIBjnRVDo aZ9gOVTsO6m3QdHuLbC5 GJrvZ4FrJPUfpcfkRv21 rK5kErHzFpI2WQcq O7KqeuD6BASsrBXqFCnr MAM8J24ub1G3TQHrCDFy GTF4sWX9qV4lqQmpuybn bGVmdDsgdmVydGlj LLdkLXfuP173WXMkeTsx PkZFTUFMRTwvdGQ+PHRk BVE8wPjfMXqqTSUhkH1b FERyS8i3QnLsGzH2 JLhvC6RoMIOhkoyeSd71 uL8xNnUbHdY5LFylF1Gt jgF5ODOocLHyTVbsGTB1 Y56sa8X4SGTtSIEb IGW1oLH1oC8fwXbjkdum bGVmdDsgdmVydGljYWwt DFeuS998BBArhUxyXrNc aJTHkQJqQRH2HX76 SA53X1QqMbigiYGagRF+ PHRhYmxlIHdpZHRoPScx HCKvJdFwrCnrKB1cOa2k ZGVyLWNvbGxhcHNl YpXpn6wfMNLrCHryNW9m zWgaJ1MhzZF5HURbo8h1 Hc45M49uH2JzfBV+PGNv zLN4nKA3kV5dJfLp GiP6ABusQ031MoQedQPh Kynag9mgj3zznUl7NmXu BPGzfvFphCfbRFJ9o9Ge Si74J93eHDrtJBHp OPIwJCDeZTVdxBfdkl5c uZ4uYm7+DVBesJO3iEM6 lX1iEnEsVzM3SIshJ362 WfZvlCGoHqicC07b E0LclLX+UDWdAsh0CNFy cKzhMK7evIExZXqgMe3t XOZ2FmOtJcEjVHqnO3Ii ZGRpbmctcmlnaHQ6 EUTiGVYjeP18Tn6qxCsi Oi7oHMGyFUP2PJSshMDl O6DbkR4xJqNsKHQxRLAk P9RkiFLsWVbgL581 PYnmQqD3VOJdeyPeC0Ug XMUpoVpiFhT2v8E3Sl0M yJugbOJcBF9oAbZoEYn5 U7JlScw0GBTwrWvq PF3maYXoWHiqYb7hnIkv iYibMU7wEVDviudgp690 LsUnw1qbHKEanYKqHAiy GXN6T09sq5Y5ACSa RHZfEZR3pCP3mI0ixHlb bjogbGVmdDsgdmVydGlj LPdfKVbwS297QRGoiLmf QdBGLds0X1JxJcj4 IVFejQxxZH6zqKHpQLuc Dk1orDuanPjfPD4fHSKw ygwee843GlPyi4ngYOFj lYGwWOprAMV2E95n t1H0TAUiSKIoNRA6hXZ6 rZ5utApubatuhUChjOiu ieMqhNlgEYpnCXjrP155 OUCvuYdjKb9ABov9 Y0LtWzm6GWThoLzvLN2c jILuGRfdEn3mtAbcvLij OK0oHDVvrmeqo861CuNl p1ncEJHzrGLyLXky CDW9K94kx7Z4TFFtMIZz IOP1aVP9lR2kwEkfblai bGVmdDsgdmVydGljYWwt NZinH035EBXtnVvs PlBheWVyOjwvdGQ+PC90 hg28N2IsPvygSys0OWPx KJO8sYL5jO0hJETnWSvi k1F5xVR6E3VitkCn ci1 (more content not included)... [facility] Provider Orderson 11-03-2023 Provider Orders [id number]# 1.00OTGTIFF [facility] Progress Note - Nurseon 10-17 [...] on: 11/02/2023 12:31 EST] Leora Malone RN [facility] Coding Summaryon 10-06-2023 Coding Summary HTMLBase 64 LrmhouiuZNl3qWw+PGhl YWQ+AS0QEWCtW15vfSCg tD3wE3JZGYxPXqdbFDQL PDzJCsLmuuUwZQ9ieKWg ZXJu IC8+XY8nZSNjTdbuqXUr l0E8iBE3Z95ckx4gANvn oMH9XZMpOjFvhlqtj6lo aAc9BHynDmlwFkIo HRPovQ41COF5wM03Cm77 rTFavZBzz0mxoYa9DmQa USMxOKC5eAwzTSnbc3Dh EBIpT46csXPck1K4 IGNvbGxhcHNlOyBlbXB0 kN0zRBcskpysm1bqpbwh Cgl2ni64qVWir6E3wAJ5 A9RwcpK4OOLwmEDf FxsebVYGuW9fudeog8tn qjvbYnVpTTBaHAc3PMo1 FSYeeByzYmClVO97NJK7 RZEaxzLmS6BcVQGq lVoeVfY3c1F7Wp9FW3QV CispF2TLGGTUPTlvtBM+ BR18mr03H6UuVmpeUnh3 XSAxKOR4dBC3yT9s WSSgJQhtu2D1rBU4D0Fj paFemn5jb5ceNSPzBDgi W38kaNMzc4B0VJSqcLI0 TMFvdWeqIpMacN79 Oyc+ARVxbUuas5EbXuym a4ypu4ronCm4LcyvSJBd jySweSnbJJE9o3BrWz9g MWCdsPR2dBQ6uB9e FeSoNpE1CRqrH797ExLf qAOoAqrjU49hU0LfaAZ+ ICEoIvd9ZGGzsEpqAR6d X7ZgXUMukjjuuHHy jXmcPR9cFKCiepnuMWDn wQ5iMMYzF1a8CkVfWzH2 OVeuB1KuUEJocjkgSs81 sJ2vLcNyGzB1XLsy Q1JawfU7SCOsoFUmDPww YAT4P68sq6Z0JJSeYFSl YQK2lYG4sM6ysObxuflp bGVmdDsgdmVydGlj FOoeVSawN318PIHftVdx PkNvZGluZyBEYXRlOiAg MTIvMjEvMjAyMzwvdGQ+ FFSiUHF0xZfpFRGd xATeTCrdIt5ucIysdUbb WP7uCXAcbndhJNIyyU0o YKBjyNKpuEovXK9xIBYq imrqm203HkCoKDJ9 AVFwvUFdW2MeeL9tSiWe FXDkHQJiK8BjjKIqILvt U600ZZrkZpG9IYRgkgAj K4XvRFDqbXwbVsR6 f3G2Tv8Yb8QrpgueA1Oi nFCfLtMqNlxzHUb5U8Ay PjwvdHI+UY65ZZRvKA58 WPi9KCB1dSofIPaz JZFxQ8NsnX6dNfZzNCVj ZGRkOyc+PHRhYmxlIHdp ZHRoPScxMDAlJyBzdHls YL4jEj1mRZOpTFVy iNalrHKkOdKjf0zpWDIe DKpeYX0ovJknF9DwvAU3 QLXhg4c6Vf00J16hR1Ya dXA+ZPBglPM3jSR8 uL0yFtRlVqT8OFsxZ799 AwBjoRQrJnawl5mil1va rMy7UdE1YPWflnEykFzm RTI5p2XfVc35P42o IHdpZHRoPSIxNSUiIHZh yYmggq8bqY8aNu2+PGNv oWA8vPH9hM9qJbFeYmG9 NYfoR885QyQizGVt Ctgcb7reo6kfsCw6RpBj GELmlqQueZlrKYG1a3Cu Jt78W1TwvZplm3TaUhn7 qe88rXYna2A4zXU1 Q9YuALGgnuxshWAraIch HV5fBBNjtlyhKHJmvD3s COQrO8z9FdTcCwP6HYtw F5LmbzA1RGIppCKa XNLbeVVRpD9wwjgbu8pj intpJtCaMUEhPPb7YZv9 XVIpwOyvHnZyBLS5VnM2 NFA4rOYssI1czXoc jihewS3tSqc+IDB9rRJy hTGKUC5oLzilyVN+PHRk VNX2jFksCEywTNFprW8s ZRNdB1k1GoZuQqL2 YMqkQ0ImygN1ERHwoPSm EOPjkRGSoP4kwjoua3op fbplOtPxUGBuPHi2CPq0 LWFsaWduOiBsZWZ0 GiC2EHP8eMOudM3hzJze bwivgN0bYgi+QmlydGgg NVW1EJm7X4QnNxx8JMZc oRkpVP6zlCZgMKpe Ep9ksSqajMmlVF2sTWQh zmzjn500EkPgy7jgKDKv vIBqUHssMBY7O70hs5O6 FPTuFXRpGYZ4hNY6 dT6nnUfzlgcljUGpfHhi viSwgYerDXvvUGztW171 NDAclXvoTfMdXUy3U4Am Woc8SDMdiZfxVH2g cZQkBNudDd5aeUnpxHkv KV2eNJMmctpps353MkUb d3lvRUXtgDMsKZnvMNR4 I64oc9O1UVRwGCWo CJJ9lPU6iG0llRgqugdm bGVmdDsgdmVydGljYWwt AHzmK880MMRqoMgaEbWx wVh6F6MrZkh9QNQp kNugJY1gyKDaJFbsEy5p gDxvnEhkYS7sMQOkbiel r127YpHvo0qrACVoxUIe KXvcWBW9U96md0R2 CYHhYVYpMVI0nDQ7hS2e bGlnbjogbGVmdDsgdmVy lVskNEigVIqzI447HRIj cDsnPlBhdGllbnQg YBpgNFs1I2LnGisceUK+ ZJ56TLQyQO66mFZfhNXw s8anzUp5AvOjHJRzGER7 iWkqBBtvk0GbIXLn P47riXJzc8U2FMWghMam zWGiIrRnsUT3cL6uWLkl fgahl0sfasglBgvwj3dd aa32nB33Q12bXUst ZHRoPSIzMCUiIHZhbGln ac8mcS4uVt8+PGNvbCB3 rJY4qM5eCXRgKzW9VMro R782MwKleXAnKxrf w4psc1brxFk4UrF2AXCo jrBpkKzbFTU1m3FeNu48 F40zYRrcFSJzQGTvDKJh WIHxjNwkfo0txH6s Ii8+XYFccJB2iJN2vB0y OuVuLpI1YTtbV299SrRq rUStRhtzL99gV2VfeBD+ CBRxLjf0WIXjeHis CT6dpBWzNFxlCy4zUXD4 CiCpXiJoDLvgH7OuPIGg qtqifwazaBV0XHFvHMLh iW97Tv9xpIsdNKMs sSJIrP0anvled6hvdckl XvIsCBWcCGt6ATp6OWSi pIjgEnLsRRL5BrK8NLC5 xVJgvM9ftMbftlwm lA0tO9OdQMMyquxkEp14 fO7xNiLrJkV8SNhcGns+ UkFUTElGRiwgREFXTiBN QVJJRTwvdGQ+PHRk KCM5fGdmPFjuXQKdgH2j BPIhP6v2JaThAgH4OJqf E7JuERJnhqvdOq37aU1o IgYuRxO5XRznJ3Jv ntL2YBHvmYHnKLpvCFS0 B25ne1M4HZGvRBQtNEC3 tHY8qC9piYjqwzidoMDd dDsgdmVydGljYWwt LNjiK387SCYdjJjiYdRv KuPfGcO7LUe5X1CjPaw4 QBRpfUztMS6ygGKwWSnu Kf5wyYxqpUfnSH2j NDYhvphoVGMjqI4pRYWx tNCpzFlcSD6yNLCtvkdd y607MgIgKAW0COTblNAm G7WxtW8zQlHfIUTc HRPpB6JhyGCoLChqF232 GBdyGuQ0TGHnlvRtS8Yb FZXovEwfVjV2v6O7Nc6d NiBZZWFyczwvdGQ+ ANJhHZJ5iWiaHXffUHEq pA7yBEWbK2e0WjMlUnO1 OArfN1LsHYNukqpsXn23 zU0xEyNoZaW1UKmi Y5VtdhG4AFWenHNwNRks EKM8T55ps9W3QFTxYWHu EVE0sSG1pN4kpGwmvqcu bGVmdDsgdmVydGlj HEerXXjcE632AYCuwVdg PkZFTUFMRTwvdGQ+PHRk FDN7dFyyXVbkKXYsxT2q FPHnG3c9ZgFwQzJ1 RCllP9OtTLKbdyiaRp58 aU4dTpGqCmP9KVhqN4Bm gdM1MBFgxQZxJNzqFHA7 M14hg6T2RTQuHGUt WPK7lIX9kM4ztYmadrhj bGVmdDsgdmVydGljYWwt MFkgV818MGNdcKykDaQs aOWOhBAqDQH0RX47 TV75I4FkQhzxoBYgjEL+ PHRhYmxlIHdpZHRoPScx SAYhZyMjpFzaED5gMj2j ZGVyLWNvbGxhcHNl EuHeh8dcPVUwPAsaYY7j hVzjE0NwuZJ1TOAxv5s1 Ll38M30tI0NgqNB+PGNv nRU6aXB3yU6pYuJv ExV6UOxvK762HvJmwYRz Mlwwv0pco4dfsJc0DhPl LDFrdwDqdJdfDKQ0n4Tn Ba63W61cIIflPDMf MKEvYPKlJVWmrUormo3x eB9zZh0+HBXpbYZ8uIY1 dF5dFpJvVqL7ELbcD980 IfOybNZwYrjuN33w I1YctHZ+NVBgPoh5NPSo hNspNT1zkLYbFEkrUe2z IEB0IvXoHkBxIOqbV8Mq ZGRpbmctcmlnaHQ6 KIDwHWGglQ14Wx7icJum On9jMRShXXW7ZJUmlOFb R9XtsL2bMwNiYGIcDPGh V0ZuiISjISspI699 VVhfXzE5APWsgbPiD5Nc EUYkmKhdQoS1s7Z3Gk2Y mCsiwHSkYZ4lKdPqFOd0 E3AbFfn3CRPigMnd XX7ciEOtGBamZu0dpNth oTomUQ1gVCNjmbpra624 TzCax8qzWOJftUTuJGtu DTJ7A67zm3U2XBNx MWYlUYA8dEU7gH7zmIsb bjogbGVmdDsgdmVydGlj MAihWBgiF035YIDvrAlf SoRAWol5A2QpSnc6 VBCclDzpBI0ahSNeNUss Zk1fbGokhUprIP2hTPZd ooaos563IhJlb1nmRXJv vVViSAzbVFH9E06l r2Q5CRGjJZCaFVR9pXM0 lE8foWaqdbmzsJDzkNer edFmzQboGLmeDRvnS816 JHXcaDvkDv7HIkd9 M1HwKyu9TGEmqJvtHP2o fYUlDQdxXb5pwXamuSxy GL1wWJQzafobe388GkBj p5imRSCsdTMrBAdr QHD0K71hi7G0MUUjPNKy JBP3cPX7jR1xkCicwmhm bGVmdDsgdmVydGljYWwt BYclP797MYWjbTua PlBheWVyOjwvdGQ+PC90 mg39V0KxDxbiJjo9ZFGj FIL3sTU0hB9yUMQrITmw z0M2xQO2M9YudwJf ci1 (more content not included)... [facility] Provider Orderson 10-06-2023 Provider Orders [id number] #1.00OTGTIFF [facility] Coding Summaryon 09-27-2023 Coding Summary HTMLBase 64 MknhwrccXQv3bCh+PGhl YWQ+GT2OYFCpL85fwOTa yF0sD5KTSLsELcwoYKBY JJsJSfYcjbTyVU8nbUNu ZXJu IC8+NG4vTPEjKamdvSXd d9V5sAN5D19sus0nJAhh vHE1IFKsXrWcrmlsy2rm jWz8HTwsBpipVdYx BWYoaG23CVG9pA02Bs79 lKUfiVVfl8aooMp3EsZq ZUAvPNN0iLudUEdbm7Br NVIrR55ukPEoi1C5 IGNvbGxhcHNlOyBlbXB0 nP5lQByzwrzyg4lrqsml Fiq3xs33yGMxl4T1dBS7 I7PrjaL8EMJntHWn XhivxQQZaQ7rgepqa7bz wthjZeIcKYPuTEo8ZIc5 MHOahTfpKuEwZS97MDZ1 XSAzpbDvP2CuMYKr wNxrByC9j3S0Fx6TD1NI AbspY8EMRDYFPEvhyGZ+ XS31ci34R1PxKqhwQhs2 JCGoUPL1wJY3mV7o UXMxDEwre6C3vGM2V7Hr pbZstx5gb4yqFVIwUJde U50avYVjr2A8NWVouDK2 MYUtqKmgTsUmtM08 Oyc+OTWxtPqfq9EsBxxn a0twy6urtWh9JopcZOCl ouUeeLucRXH0j4EkIv0t CRHzlXH2dAF4uW2p FwEhVqW3FPafJ506MbEr zMWoKfeyL31vW7IlaFW+ SXYhBsf2BTAgzUvpDJ2p M7BuFYJhgqphvIYr zCioSG5rSYTzethxOCRy iB3sWAVdI2i4UaQhPmR6 CBedA6QaWMVibrndRu23 bG7lAeAgXbA2ELcv R9QayzR9TPJqwXPbEFhq XCI0I08cy2K9VCHyEPKa TCZ5eGA4gY3liUhcdlcw bGVmdDsgdmVydGlj TXiiKGhlR163REZruOyt PkNvZGluZyBEYXRlOiAg MTIvMTIvMjAyMzwvdGQ+ NJLeWFH1mVirFWNi fLAuUEinFo5pmOsucHto RG1mTSEprdppBFWohL3l FRNxkIUsdRguKL3cZWSp iidbm911FhSuTLT5 NKHblRNdV6ZesV6ySsTl FYGjGJXhB1ErpFYpHEqe R053YPafCgR7VWGfteAj O4IhXPRxgObzIwF3 n1A3Nx6Vu3GnpwyiF2Si gEOoEcGiAuklHUx4D9Yy PjwvdHI+DN05VCRaGL33 NSv4BMK7sBdcNZbp SYKsG5TabC0rIqDnXNZb ZGRkOyc+PHRhYmxlIHdp ZHRoPScxMDAlJyBzdHls VK0bRt6tXEQgWRUa tDosnIVzEvCqb6roDHHw VYeaIM4pyVfpG3WprLW4 NYHjy8a8Dj70J81nF5Oy dXA+NWXizYQ1uOG1 tA9oElNuNeO3GAolW397 IjKfoNSiSbzgw5aod4ga yOt7XzO1ZTSbyxWdsLro TYY5n2PbLo81A50y IHdpZHRoPSIxNSUiIHZh dYfxtm4uvW9bXx5+PGNv dKG1jEI8iI7rHxEbLpG7 RZdiE630KbEboBEa Vthzi7xth3cwsTw2YxNa BBQjbsSbuRzwXVC6e3Ma Ej08C4VftEdxc2SpSxi4 sf28nBKhm8G0dKJ1 R0QkGGLifvowqIMwsFci VG2tTVJtfmhcNPQymJ0u QCRoJ8g0BuXpRlN3IQss S9QzmaG9AGVoyCCx BCWywRKKyJ8ixklmr4ti haymUyZsQVRqPNt6GFf5 FGFziNqbCaRuFYQ7FxJ2 LKT7lYMmjR9mfIod rezlhQ3qDhq+VFM9dZBg yDZDGW3lJanbfGB+PHRk GXY4yDogHOnzBYRgyL0p QOHnN6k2QoPyMzN7 SFsaB3LibnH8RKIxgIWw JQGcoSJScM8xgrilf8rt dsktLcEyZSLoABw7ZMs2 LWFsaWduOiBsZWZ0 QaV3PCZ9sLMmkD1rhOtl iztilS8mKgy+QmlydGgg HAG2CJd3K6OgNme4KDOe bTxsPE1dgZJeITiz Gb5guDuveYqlZO2jISMa ovcna903ZoCqw9tjKRHa dIYwOZbcJCJ6I87cj6Q4 NEDeSHXwHVB3cSD0 xW3haAxbmemncNAgtWba seYouEicIMenZUyxA368 YQMvzHvaElHvWSm9P4Ze Gjp4BCNbwIixCZ8j qLUoOImhSd6taRcvyRcx UB9yYZHszjfzi353AqVr k2rgQCGovFNpLJdvYEV8 W66vg3K6EHUkWSCr PGU2mYL2gO1vqNhjxund bGVmdDsgdmVydGljYWwt OFwpL947EQAryVkgWwWo kZz9O2XxMtt2HCOy xAvlNA1toYQlAIiwPq7e qRmuiBbhDF1hTVLjbfyh z631TbJzr1osVBHzeNSg OHulJGJ8V51nr8R8 OCJyHVQlRIN9pQF7eE0s bGlnbjogbGVmdDsgdmVy vOhgTKllJYtbX819YWTg cDsnPlBhdGllbnQg CYtcJAo8J6WuVctsoCZ+ GP89VIUsQX27mPZpgSPl s5veaLl5DzUsCTZxNGT8 iSifBTzia3BfPOYb Q66bzZZsj0P2YLUttRku lMVdTeXixDI2xB6gYMcj kemus3tyicupFidhx9ds ro25fX07O47iSOks ZHRoPSIzMCUiIHZhbGln zh8vjW5gKi5+PGNvbCB3 fDU3eY1pGHPwRcB1ICiz Z479NsPlzVHxVujs d9cnh9zftVq5KiK1TSQi bnPxqEcvMFF3d5WjUm67 G93oEHwhOYIgTLQzESPn DFWcvMxnjj8tzU7v Ii8+NKJcwQM2bYN5hM2k WjFxDuN6QQwvO327PbVv sAPwXpzpJ75iO3NtbRY+ OVKbFlz5MQWbrPtt NA5zvKVwKAzlYu2jCOZ8 RuLmDbUmXRzzG9OyIQRa kkcgnmmkrUB6ODScMHIs bE66Bx8cnTtzPMBn uRZSdS5xwuxsf1wakmas MbNfXCFdFUk4UUc1FPPu xLnyIrHxOKU9LeQ8QLM5 wVIkjX6zbNetutrm kU3fX0JcUENdhwznFf81 xV1wIrGdHhJ6AHdpYhf+ UkFUTElGRiwgREFXTiBN QVJJRTwvdGQ+PHRk CNG6xCteQVdvQFUtiO9q FHQhD4i9ZuXmMhH9DNpw Z1OdLQGhsnwdIx81tY9b FdOkQvS6JZmhN8Qt qsM1YPIyeZItITlqRBY8 E04ro1Z9DIUpLCFrHTH8 vVS6aO4qxKvytxrybERl dDsgdmVydGljYWwt RUrkR378SSJptUsqIsHr QbXgSgX2TMh8H3LwUsy6 QQQquOtlQK1alOHhDCnq Gr7xyEmhpKlxDC1l BYSgnrrbEMUtaQ1iNAIz hLUcaCxcUM1jIAJwwrcu s139TtWdRZV8JFLbwHBr E2AeaD2qFhQdKUYm XQHiX4VrvZFsNOqtX776 AYhaIeG1JNZvmaKdK2Vq LQWxpQvgYaQ0q2O1Xz5h NiBZZWFyczwvdGQ+ SFWoJTF0vCaqUGydKPAb fG6eJCIwN5u1MqKbNnF7 HJypE0FaMPGsgciyAa41 xF1gCfPdMvP9HLfw J0EcljA3SBMfjOSqSApq VND1P22lg8Y4UMUuYWCj GQI8zFW9sO1fwYrpxqqq bGVmdDsgdmVydGlj XQlkDAhvY071SPJguDwy PkZFTUFMRTwvdGQ+PHRk ZBY1mOzmNYgtDEJcsI7i DKCmK7t9TlIaFzE6 JOjnZ1TsSFIyvwdnHz82 sA9lZbUrVyT3FKkaF8Ty eiC4ZZSlwGTcFZrjFOB7 Q80th7C0QWCfMTAi KTM7gTO1bT8ziHpyqxal bGVmdDsgdmVydGljYWwt SNdzO456QANsxImiTtHa mRFFeOMwTGJ9WA03 HH55C2NzHniotTObjEA+ PHRhYmxlIHdpZHRoPScx HLYeNmOnlYquKW7hLi5l ZGVyLWNvbGxhcHNl IeEvu8rgQAIcGXyoZL7a dUoqE4AyqQB7HUIma0n7 No90Y75nL3WeuMA+PGNv mBW1jMH5tH3sGxSl CrH9URxtG740BpOupRCu Hgequ1kav5jncOp9PlJu JJVxirDqtQivEWO3v5Zo Aa26X88yELcbEGDw GPOjHXBzUDIprAyhya8m jB5fGw8+LUYexJP9uET8 jK8rTbOnUhM6AJsqY503 QyJvyFJeGvxyN79y Y9GodIP+KQBpEsy1AUFd eWnjPY6hiEPsLApnXi6x ZXY0StMdDjAhLSprS8Bf ZGRpbmctcmlnaHQ6 RBGxSNLmnW46Rq1flBfo Po5cBNUtUET8SINtbYBd T3EaxE0bCpYlEOFcDJSd U5HboZYpNDweX799 XHqqQkM8NFCapcMwZ4Bm IUKynEmiNwA0i9Y4Nl8M oGnmdZGbKH2bCmWxQEd7 X9SyEvj3PLVkvObv DK5omJMzIBdrSw2whRzt vWuuCT6hIOJubxtin416 ZvVrc5ugZTAbwAYdMBgo BBS3M26tk7U9CMWf MJTmGIW2dFX1pQ5pmGbn bjogbGVmdDsgdmVydGlj VOneLUqyX932WESdsCkp KbQHKcz7Y1LkRxa7 ONTxfRkvLF2joOGlOFgu Xb7kkCqfwWmbJE4yGQDy flupu747HtUqe6mfDYPp aFZqOTbcFES6K28n h5Y6DNZjXWYbGKQ6cAO2 lS9slOicdxwbiYUxrAac yeNmlLndIWcfZQpxX087 YOUqaWayUt8GJen9 W1FhRyl7XZBzdGqsSF7k aJFdNKqxKv2biOyldYsx XV6mMVEtossyo471LqWp o1mvPBYeqTUcFOtn VAC6M14fv5S7BXQhKRHr IZD6pAG2aM3kzRhyvnyo bGVmdDsgdmVydGljYWwt ONqzW812HLLcaDxx PlBheWVyOjwvdGQ+PC90 gi78W5WnVjawTzm8OQWi MJT8fEF3uH7eNSJcUXmj x8H6bYJ2Y4AhkjWx ci1 (more content not included)... [facility] Provider [place] 09-12-2023 Provider Orders [id number] [facility] Provider Orders [id number]#1. [facility] - Nurseon 08-18 Progress [...] 09/07/2023 08:56 EST] Savita Oro RN Normal [facility] CBC AUTO DIFFon 09-02-2022 BASO # 0.1 103/ul Normal 0.0-0.1 [facility] Comment on above: Performed By: #### C BC #### [facility] [address] [place] [address] Dr. Karina Montero Basophils/100 WBC (Bld) 0.9 % Normal 0.2-2.0 [facility] Comment on above: Performed By: #### C BC #### [facility] [address] [place] [address] Dr. Karina Montero EO # 0.4 103/ul Normal 0.0-0.7 [facility] Comment on above: Performed By: #### C BC #### [facility] [address] [place] [address] Dr. Karina Montero Eosinophils/100 WBC (Bld) 6.2 % Normal 0.9-7.0 [facility] Comment on above: Performed By: #### C BC #### [facility] [address] [place] [address] Dr. Karina Montero Erythrocyte distribution width (RBC) [Ratio] 14.1 % Normal 11.0-15.0 [facility] Comment on above: Performed By: #### C BC #### [facility] [address] [place] [address] Dr. Karina Montero Hematocrit (Bld) [Volume fraction] 45.7 % Normal 36.0-48.0 [facility] Comment on above: Performed By: #### C BC #### [facility] [address] [place] [address] Dr. Karina Montero Hemoglobin (Bld) [Mass/Vol] 14.9 g/dL Normal 12.0-16.0 [facility] Comment on above: Performed By: #### C BC #### [facility] [address] [place] [address] Dr. Karina Montero IG # 0.01 10e3/ul Normal 0.00-0.03 [facility] Comment on above: Performed By: #### C BC #### [facility] [address] [place] [address] Dr. Karina Montero IG % 0.2 % Normal 0.0-0.5 [facility] Comment on above: Performed By: #### C BC #### [facility] [address] [place] [address] Dr. Karina Montero LYMPH # 2.9 103/ul Normal 1.2-3.8 [facility] Comment on above: Performed By: #### C BC #### [facility] [address] [place] [address] Dr. Karina Montero Lymphocytes/100 WBC (Bld) 44.7 % Normal 20.5-60.0 [facility] Comment on above: Performed By: #### C BC #### [facility] [address] [place] [address] Dr. Karina Montero MANUAL DIFF REQ NO Normal [facility] Comment on above: Performed By: #### C BC #### [facility] [address] [place] [address] Dr. Karina Montero MCH (RBC) [Entitic mass] 29.8 pg Normal 26.7-34.0 [facility] Comment on above: Performed By: #### C BC #### [facility] [address] [place] [address] Dr. Kraina Montero MCHC (RBC) [Mass/Vol] 32.6 g/dL Normal 29.9-35.2 [facility] Comment on above: Performed By: #### C BC #### [facility] [address] [place] [address] Dr. Karina Montero MCV (RBC) [Entitic vol] 91.4 fL Normal 81.0-99.0 [facility] Comment on above: Performed By: #### C BC #### [facility] [address] [place] [address] Dr. Karina Montero MONO # 0.7 103/ul Normal 0.3-0.8 [facility] Comment on above: Performed By: #### C BC #### [facility] [address] [address] [address] Karina Montero Monocytes/100 WBC (Bld) 10.1 % Normal 1.7-12.0 [facility] Comment on above: Performed By: #### C BC #### [facility] [address] [address] [address] Karina Montero NEUT # 2.4 103/ul Normal 1.4-6.5 [facility] Comment on above: Performed By: #### C BC #### [facility] [address] [address] [address] Karina Montero Neutrophils/100 WBC (Bld) 37.9 % Critically low 43.0-75.0 [facility] Comment on above: Performed By: #### C BC #### [facility] [address] [address] [address] Karina Montero Platelet mean volume (Bld) [Entitic vol] 10.7 fL Normal 9.5-13.5 [facility] Comment on above: Performed By: #### C BC #### [facility] [address] [address] [address] Karina Mnotero PLT 222 103/ul Normal 150-450 [facility] Comment on above: Performed By: #### C BC #### [facility] [address] [address] [address] Karina Montero RBC 5.00 106/ul Normal 4.20-5.40 [facility] Comment on above: Performed By: #### C BC #### [facility] [address] [address] [address] Karina Montero WBC 6.4 103/ul Normal 4.0-11.0 [facility] Comment on above: Performed By: #### C BC #### [facility] [address] [address] [address] Karina Montero LIPID PROFILEon 09-02-2022 CHOL-HDL RATIO NORM SEE BELOW Normal [facility] Comment on above: Result Comment: 3.3 - 4.4 LOW RISK 4.4 - 7.1 AVERAGE RISK 7.1 - 11.0 MODERATE RISK >11.0 HIGH RISK Performed By: #### T SH, LIPID, CMP #### [facility] [address] [address] [address] Karina Montero Cholesterol [Mass/Vol] 217 mg/dL Critically high <=200 [facility] Comment on above: Performed By: #### T SH, LIPID, CMP #### [facility] [address] [address] [address] Karina Montero Cholesterol in HDL [Mass/Vol] 45 mg/dL Normal 40-60 [facility] Comment on above: Performed By: #### T EMILY, LIPID, CMP #### [facility] [address] [place] [address] Dr. Karina Montero Cholesterol in LDL [Mass/Vol] 153.4 mg/dL Normal [facility] Comment on above: Performed By: #### T EMILY, LIPID, CMP #### [facility] [address] [place] [address] Dr. Karina Montero Cholesterol.total/C holesterol in HDL [Mass ratio] 4.8 {ratio} Normal [facility] Comment on above: Performed By: #### T SH, LIPID, CMP #### [facility] [address] [place] [address] Dr. Karina Montero HDL NORMAL > or = 60 mg/dl - LOW CARDIOVASCULAR RISK <40 mg/dl - HIGH CARDIOVASCULAR RISK Normal [facility] Comment on above: Performed By: #### T SH, LIPID, CMP #### [facility] [address] [place] [address] Dr. Karina Montero LDL CALC NORMAL SEE BELOW Normal [facility] Comment on above: Result Comment: <100 mg/dl OPTIMAL 100 - 129 mg/dl NEAR OR ABOVE OPTIMAL 130 - 159 mg/dl BORDERLINE HIGH 160 - 189 mg/dl HIGH >190 mg/dl VERY HIGH Performed By: #### T SH, LIPID, CMP #### [facility] [address] [place] [address] Dr. Karina Montero Triglyceride [Mass/Vol] 93 mg/dL Normal <=150 [facility] Comment on above: Performed By: #### T SH, LIPID, CMP #### [facility] [address] [address] [address] Karina Montero VLDL CALC 18.6 mg/dL Normal [facility] Comment on above: Performed By: #### T SH, LIPID, CMP #### [facility] [address] [address] [address] Karina Montero PROF 14(COMP METB)on 022 Albumin [Mass/Vol] 3.2 g/dL Critically low 3.4-5.0 [facility] Comment on above: Performed By: #### T SH, LIPID, CMP #### [facility] [address] [place] [address] Dr. Karina Montero Albumin/Globulin [Mass ratio] 0.8 {ratio} Normal [facility] Comment on above: Performed By: #### T SH, LIPID, CMP #### [facility] [address] [place] [address] Dr. Karina Montero ALP [Catalytic activity/Vol] 83 U/L Normal 46-116 [facility] Comment on above: Performed By: #### T SH, LIPID, CMP #### [facility] [address] [place] [address] Dr. Karina Montero ALT [Catalytic activity/Vol] 8 U/L Critically low 14-59 [facility] Comment on above: Performed By: #### T SH, LIPID, CMP #### [facility] [address] [address] [address] Karina Montero Anion gap [Moles/Vol] 5.2 mmol/L Normal [facility] Comment on above: Performed By: #### T SH, LIPID, CMP #### [facility] [address] [place] [address] Dr. Karina Montero AST [Catalytic activity/Vol] 10 U/L Critically low 15-37 [facility] Comment on above: Performed By: #### T SH, LIPID, CMP #### [facility] [address] [place] [address] Dr. Karina Montero Bilirubin [Mass/Vol] 0.3 mg/dL Normal 0.2-1.0 [facility] Comment on above: Performed By: #### T SH, LIPID, CMP #### [facility] [address] [place] [address] Dr. Karina Montero Calcium [Mass/Vol] 8.7 mg/dL Normal 8.5-10.1 [facility] Comment on above: Performed By: #### T SH, LIPID, CMP #### [facility] [address] [address] [address] Karina Montero Chloride [Moles/Vol] 103 mmol/L Normal 98-107 [facility] Comment on above: Performed By: #### T SH, LIPID, CMP #### [facility] [address] [place] [address] Dr. Karina Montero CO2 [Moles/Vol] 31.6 mmol/L Normal 21.0-32.0 [facility] Comment on above: Performed By: #### T SH, LIPID, CMP #### [facility] [address] [place] [address] Dr. Karina Montero Creatinine [Mass/Vol] 0.41 mg/dL Critically low 0.55-1.02 [facility] Comment on above: Performed By: #### T EMILY, LIPID, CMP #### [facility] [address] [place] [address] Dr. Karina Montero EGFR-AF [place] >60 Normal >=60 [facility] Comment on above: Performed By: #### T SH, LIPID, CMP #### [facility] [address] [place] [address] Dr. Karina Montero EGFR-NON AF [place] >60 Normal >=60 [facility] Comment on above: Performed By: #### T SH, LIPID, CMP #### [facility] [address] [place] [address] Dr. Karina Montero Globulin (S) [Mass/Vol] 4.0 g/dL Normal [facility] Comment on above: Performed By: #### T SH, LIPID, CMP #### [facility] [address] [place] [address] Dr. Karina Montero Glucose [Mass/Vol] 86 mg/dL Normal 74-106 [facility] Comment on above: Performed By: #### T EMILY LIPID, CMP #### [facility] [address] [place] [address] Dr. Karina Montero Potassium [Moles/Vol] 3.8 mmol/L Normal 3.5-5.1 [facility] Comment on above: Performed By: #### T EMILY LIPID, CMP #### [facility] [address] [place] [address] Dr. Karina Montero Protein [Mass/Vol] 7.2 g/dL Normal 6.4-8.2 [facility] Comment on above: Performed By: #### T EMILY LIPID, CMP #### [facility] [address] [place] [address] Dr. Karina Montero Sodium [Moles/Vol] 136 mmol/L Normal 136-145 [facility] Comment on above: Performed By: #### T EMILY LIPID, CMP #### [facility] [address] [place] [address] Dr. Karina Montero Urea nitrogen [Mass/Vol] 11.0 mg/dL Normal 7.0-18.0 [facility] Comment on above: Performed By: #### T EMILY LIPID, CMP #### [facility] [address] [place] [address] Dr. Karina Montero Urea nitrogen/Creatinine [Mass ratio] 26.8 mg/mg Normal [facility] Comment on above: Performed By: #### T EMILY LIPID, CMP #### [facility] [address] [place] [address] Dr. Karina Montero TSHon 09-02-2022 TSH 1.071 uIU/mL Normal 0.358-3.740 [facility] Comment on above: Performed By: #### T EMILY LIPID, CMP #### [facility] [address] [place] [address] Dr. Karina Montero VITAMIN D 25 OHon 09-02-2022 VIT D 25-OH 28.4 ng/mL Normal [facility] Comment on above: Performed By: #### V ITAD #### [facility] [address] [place] [address] Dr. Karina Montero VIT D RANGES SEE BELOW Normal [facility] Comment on above: Result Comment: <20 ng/mL Vit D deficient 20 - <30 ng/mL Vit D insufficient 30 - 100 ng/mL Vit D sufficient >100 ng/mL Potential Toxicity Performed By: #### V ITAD #### [facility] [address] [place] [address] Dr. Karina Montero Telephone Encounteron 2021 [employer] Authentication Interface Message Text LM for her to call me for appt. Pt only considered New if 3 years have passed since last visit. Normal [facility] CULTURE URINEon 01-03-2022 CULTURE URINE Isolate [...] Trimethoprim/Sulfame thoxazole >=320 R F Normal [facility] Comment on above: Performed By: #### U RCX #### [facility] [address] [place] [address] Dr. Karina Montero UA (CLEAN/CATCH) CLASSIFICATION ANALYST/MICRO I F IND.on 01-01-2022 Bilirubin Ql (U) Negative Normal NEGATIVE [facility] Comment on above: Performed By: #### U RENATO ADKINS #### [facility] [address] [place] [address] Dr. Karina Montero Clarity (U) CLEAR Normal CLEAR [facility] Comment on above: Performed By: #### U ACSCARLIN UMICRO #### [facility] [address] [place] [address] Dr. Karina Montero Color (U) LT. YELLOW Normal YELLOW [facility] Comment on above: Performed By: #### U ACSIND, UMICRO #### [facility] [address] [address] [address] Karina Montero Glucose Ql (U) Negative Normal NEGATIVE [facility] Comment on above: Performed By: #### U ACSIND, UMICRO #### [facility] [address] [address] [address] Karina Montero Hemoglobin Ql (U) TRACE-LYSED Abnormal NEGATIVE [facility] Comment on above: Performed By: #### U ACSIND, UMICRO #### [facility] [address] [address] [address] Karina Montero Ketones Ql (U) Negative Normal NEGATIVE The [facility] Comment on above: Performed By: #### U ACSIND, UMICRO #### [facility] [address] [address] [address] Karina Montero LEUKOCYTES LARGE Abnormal NEGATIVE [facility] Comment on above: Performed By: #### U ACSIND, UMICRO #### [facility] [address] [address] [address] Karina Montero Nitrite Ql (U) Positive Abnormal NEGATIVE [facility] Comment on above: Performed By: #### U ACSIND, UMICRO #### [facility] [address] [address] [address] Karina Montero pH (U) 8.5 [pH] Normal 5-9 [facility] Comment on above: Performed By: #### U ACSIND, UMICRO #### [facility] [address] [address] [address] Karina Montero SPEC GRAVITY 1.015 Normal 1.005-<=1.025 [facility] Comment on above: Performed By: #### U ACSIND, UMICRO #### [facility] [address] [address] [address] Karina Montero UA PROTEIN 100 mg/dl Abnormal NEGATIVE/ TRACE [facility] Comment on above: Performed By: #### U ACSIND, UMICRO #### [facility] [address] [place] [address] Dr. Karina Montero UR MICRO IND INDICATED Normal [facility] Comment on above: Performed By: #### U ACSCARLIN, UMICRO #### [facility] [address] [place] [address] Dr. Karina Montero Urobilinogen Qn (U) 1.0 {Peterson'U}/dL Normal 0.2 - 1. 0 [facility] Comment on above: Performed By: #### U ACSCARLIN, UMICRO #### [facility] [address] [place] [address] Dr. Karina Montero URINE MICROSCOPIC ONLYon BACTERIA LARGE Abnormal NONE SEEN [facility] Comment on above: Performed By: #### U ACSCARLIN, UMICRO #### [facility] [address] [place] [address] Dr. Karina Montero Bacteria identified Cx Nom (U) INDICATED Normal [facility] Comment on above: Performed By: #### U ACSCARLIN, UMICRO #### [facility] [address] [place] [address] Dr. Karina Montero CAST NONE SEEN Normal NONE SEEN [facility] Comment on above: Performed By: #### U ACSCARLIN, UMICRO #### [facility] [address] [place] [address] Dr. Karina Montero Crystals LM Nom (Urine sed) SEEN Abnormal NONE SEEN [facility] Comment on above: Performed By: #### U ACSCARLIN, UMICRO #### [facility] [address] [place] [address] Dr. Karina Montero Epithelial cells LM Ql (Urine sed) NONE SEEN Normal NONE SEEN /RARE [facility] Comment on above: Performed By: #### U ACSCARLIN, UMICRO #### [facility] [address] [place] [address] Dr. Karina Montero MUCOUS LARGE Abnormal NONE SEEN [facility] Comment on above: Performed By: #### U ACSCARLIN, UMICRO #### [facility] [address] [place] [address] Dr. Karina Montero RBC 5-10 Abnormal 0-2 [facility] Comment on above: Performed By: #### U ACSIND, UMICRO #### [facility] [address] [place], [place] [address] Dr. Karina Montero TRIPLE PHOS CRYSTALS MODERATE Normal [facility] Comment on above: Performed By: #### U ACSIND, UMICRO #### [facility] [address] [place], [place] [address] Dr. Karina Montero WBC 50-75 Abnormal NONE SEEN [facility] Comment on above: Performed By: #### U ACSIND, UMICRO #### [facility] [address] [place], [place] [address] Dr. Karina Montero Progress Noteson 12-28-2021 [employer] Authentication Interface Message Text Ms Peralta's appointment was rescheduled to 12/28/21 -- However, [facility] received call late on Tuesday12/25/21 - that they were cancelling the surgery for Tuesday, as patient was discharged from facility, and will be home - unable to acquire transportation. - ----- Tuesday, December 28, 2021 at 8:07:43 AM ----- ----- Provider: Yisel Guevara Specialist -- Clinic: [place] ----- Normal [facility] PSE Call H AND Stephen [employer] Authentication Interface Message Text Patient was identified by name and date of by nursing staff at [facility]. Sophy Dong RN Preop and medication instructions given to staff. Pt is vaccinated x2 for covid and will not need covid testing prior to dental surgery . Normal [facility] Telephone Encounteron 2021 [employer] Authentication Interface Message Text Pt does not need covid testing for surgery . Covid vaccine completed. 01/16/2021 and 03/03/2021 Normal [facility] Progress Noteson 11-03-2021 Formula Checker Authentication Interface Message Text ----- Wednesday, November 03, 2021 at 10:51:21 AM ----- ----- Provider: Destiny Winn, -- Clinic: [place] ----- Due to the weather conditions the patient was unable to make the appointment at [place]. OR was cancelled. Normal [facility] Anesthesia Preprocedure Robbie zabala 10-31-2021 Formula Checker Authentication Interface Message Text ASA: 3 PSE [...] abdominal abscess, and thus was sent to [facility] for further evaluation. Patient presented with [...] EKG, imaging, and consults reviewed Normal [facility] PSE Appt H AND Stephen Formula Checker Authentication Interface Message Text Patient was identified by name and date of . Nati Carroll Bill of rights provided to patient Normal [facility] Patient Instructionson 10-27 Formula Checker Authentication Interface Message Text MEDICATIONS: Follow your [...] procedure. Contact the Pre-Surgical Evaluation department at [phone] or your surgeon's office with any additional [...] surgery. Contact the Pre-Surgical Evaluation department at [phone] or your surgeon's office with any questions. Normal [facility] Progress Noteson 09-14-2021 Formula Checker Authentication Interface Message Text Spoke to Ms. [...] ----- Provider: Yisel Guevara Specialist -- Clinic: [place] ----- Normal [facility] Telephone Encounteron 2020 Formula Checker Authentication Interface Message Text Nathalia Justice MD ??? 12:08 PM Note Sukhjinder - can one of you please call [facility] and discontinue Bactrim and Rifampin? She does not need labs for monitoring anymore either. [facility] contacted at [phone] Orders relayed to Paola BAILEY Patient has f/u with Tracy Jacobsen APRN on 09/15/21 Evelina Durham APRN-PBX OPERATOR Normal [facility] Formula Checker Authentication Interface Message Text Sukhjinder - can one of you please call [facility] and discontinue Bactrim and Rifampin? She does not need labs for monitoring anymore either. Normal [facility] Telephone Encounteron 2020 Formula Checker Authentication Interface Message Text Forwarded to Dr Justice Normal [facility] Telephone Encounteron 2020 Formula Checker Authentication Interface Message Text Please advise Last seen by Tracy Jacobsen 04/28 Normal [employer] Authentication Interface Message Text From: Tyesha Peralta To: Nathalia Justice MD Sent: 08/19/2021 4:42 PM EDT Subject: Visit Follow-Up Question Is it required for you to see me in person every month? Or can we do over the phone visits? It's just been a hassle for this facility to find a ride for me to get up there to [place]. Just mainly curious if you had anything to discuss with me in an email form. Thanks for taking the time to read this. -Tyesha Peralta Normal [employer] Progress Note - WOUND CENTER on 01-05-2021 Progress Note - WOUND CENTER NAME: TYESHA PERALTA MR#: [id number] DATE OF SERVICE: 01/05/2021 WOUND CARE PROGRESS [...] for followup is recommended. NAYELI HENDRICKS MD [facility]/[id number] E/S: Nayeli Hendricks MD 01/08/[address] [facility] PATIENT NAME: TYESHA PERALTA [address] [address] UNIT #: [id number] : [birth year] DOS: 01/05/21 WOUND CLINIC PROGRESS NOTE ATTENDING PHY: Nayeli Hendricks MD Normal [facility] CNOVon 12-22-2020 CNOV Office Visit (UROSMN) TYESHA PERALTA ([id number]) 1985 F Date Time Provider Department 12/22/20 [...] Education Session: None Instruction Provided To: Patient Paratransit Operator Present: not applicable Discipline: Nursing Learning Topic: [...] Primary Vis (more content not included)... Normal [facility] Progress Note - WOUND CENTER on 12-15-2020 Progress Note - WOUND CENTER NAME: TYESHA PERALTA MR#: [id number] DATE OF SERVICE: 12/15/2020 WOUND CARE PROGRESS [...] debridement at this time. NAYELI HENDRICKS MD [facility]/[id number] E/S: Nayeli Hendricks MD 12/18/[address] [facility] PATIENT NAME: TYESHA PERALTA [address] [address] UNIT #: [id number] : [birth year] DOS: 12/15/20 WOUND CLINIC PROGRESS NOTE ATTENDING PHY: Nayeli Hendricks MD [facility] Encounters Encounter Date Encounter Type Care Provider Facility Start: 05-02-2024 ambulatory SINGH MORSE Facility:[facility] Start: 03-29-2024 End: 03-29-2024 ambulatory Sreekanth Dey Facility:[facility] Start: 03-22-2024 End: 03-22-2024 ambulatory SHARIFA ADAMS Not Available Start: 02-22-2024 End: 02-22-2024 ambulatory Sreekanth Dey Facility:[facility] Start: 02-09-2024 End: 02-09-2024 ambulatory SHARIFA ADAMS Not Available Start: 01-25-2024 End: 01-25-2024 ambulatory [facility] Facility:[facility] Start: 01-12-2024 End: 01-12-2024 ambulatory SHARIFA ADAMS Not Available Start: 12-28-2023 End: 12-28-2023 ambulatory [facility] Facility:[facility] Start: 11-30-2023 End: 11-30-2023 ambulatory [facility] Facility:[facility] Start: 11-24-2023 Chart abstracting Sharifa Sorenson Lucy miller NP Work Phone: [facility] Start: 11-24-2023 End: 11-24-2023 ambulatory SHARIFA ADAMS Not Available Start: 11-02-2023 End: 11-02-2023 ambulatory [facility] Facility:[facility] Start: 10-05-2023 End: 10-05-2023 ambulatory [facility]CLUD[facility] Facility:[facility] Start: 09-26-2023 End: 09-26-2023 ambulatory JEWELS SHARPE Not Available Start: 09-07-2023 End: 09-07-2023 ambulatory [facility]CLUDES [facility] Facility:[facility] Start: 05-18-2023 End: 05-19-2023 ambulatory Rach Ledbetter Facility:[facility] Start: 05-18-2023 End: 05-18-2023 Patient encounter procedure Rach Ledbetter [facility] Start: 04-12-2023 End: 04-13-2023 ambulatory TORSTEN-C STEVE GIPSON Facility:[facility] Start: 04-12-2023 End: 04-12-2023 Patient encounter procedure STEVE GIPSON [facility] Start: 02-16-2023 ambulatory Sandeep LOPEZ Facility :[facility]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
--- NOTE | 2024-07-04 16:09 | CT_ITS ---
[address] [id number] Patient Name: CHRISTINA PERALTA MRN: [id number] date: 1985 Sex: F Assigned Patient Location: ER Current Patient Location: [facility] Accession/Order Number: [id number] Exam Date: 07/04/2024 17:03 Report Date: 07/04/2024 18:50 At the request of: TY MARTÍNEZ Procedure: CT abdomen pelvis wo con CT ABDOMEN AND PELVIS WITHOUT CONTRAST, 07/04/2024. HISTORY: Paraplegia. Abdominal pain. COMPARISON: CT abdomen and pelvis, 09/18/2023. TECHNIQUE: Noncontrast axial CT images obtained through the abdomen and pelvis. Reconstructions obtained in the sagittal and coronal planes. Dose reduction techniques were achieved by using automated exposure control and/or adjustment of mA and/or kV according to patient size and/or use of iterative reconstruction technique. FINDINGS: Lung bases clear. No pleural effusion. Heart size normal. Liver unremarkable. Cholecystectomy. No abnormal bile duct dilatation. Pancreas normal. Spleen normal. Adrenal glands are normal. The kidneys show mild pelvocaliectasis, right greater than left. No obstructing kidney stones. Stomach normal. No bowel obstruction. No bowel wall thickening. There has been a previous bowel resection and anastomosis in the lower abdomen on the right in the right lower quadrant. This is stable. Colon is unremarkable. There is an inferior vena cava filter that is stable. Abdominal aorta normal in size. There is an intrauterine . A single fetus is identified. The fetus has a cephalic presentation. Placenta is located towards the left side of the uterus. There is a Alfonso catheter in the bladder. The bladder is decompressed. No free fluid in the pelvis. Surgical hardware on the left side of the pelvis stable. Chronic deformity of the lumbar spine unchanged. Osseous structures stable. CT/CT abdomen pelvis wo con IMPRESSION: 1. There is an intrauterine . The gestational age is uncertain, but visually, this is likely third trimester. A single fetus is identified. The fetus has a cephalic presentation. Placenta is located towards the left side of the uterus. Amniotic fluid volume appears normal. 2. Alfonso catheter is seen in the bladder. The bladder is decompressed. 3. Minimal pelvocaliectasis in both kidneys, right greater than left not unexpected for the stage of . 4. No bowel obstruction or inflammation. 5. Cholecystectomy. 6. Deformity of the lumbar spine stable. Osseous structures unchanged. Electronically authenticated by: RADHA CHOUDHURY Date: 07/04/2024 18:50
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
[2024-07-04] MEDS: 0.9 % SODIUM CHLORIDE 500 ML IV (16:27)
--- NOTE | 2024-07-04 16:27 | ECG_ITS ---
[facility] Test Date: 2024-07-04 Pat Name: CHRISTINA PERALTA Department: Room: - Gender: Female Bog Cutter: : 1985 Requested By: SHALA CHAN Order Number: [id number] Reading MD: POPEYE MORRISSEY Measurements Intervals [place] Rate: 119 P: 47 ME: 146 QRS: 59 QRSD: 68 T: 32 QT: 332 QTc: 403 Interpretive Statements 1120 Sinus tachycardia 4068 Nonspecific Twave abnormality 8102 Low QRS voltage in chest leads 9140 abnormal rhythm ECG No previous ECG available for comparison Electronically Signed On 07-05-2024 6:51:08 EDT by POPEYE MORRISSEY
[2024-07-04] MEDS: KETOROLAC TROMETHAMINE 30 MG/ML VIAL 15 MG IVP (16:28)
[2024-07-04 16:43] LABS: Hematocrit 35.1 % (36.0-48.0); Mean Corpuscular HGB Conc 34.2 g/dL (29.9-35.2); Mean Corpuscular Hemoglobin 30.9 pg (26.7-34.0); Mean Corpuscular Volume 90.5 fL (81.0-99.0); Mean Platelet Volume 11.3 fL (9.5-13.5); Platelet Count 213 10^3/uL (150-450); Red Blood Count 3.88 10^6/uL (4.20-5.40); Red Cell Distribution Width 12.9 % (11.0-15.0); White Blood Count 12.3 10^3/uL (4.0-11.0)
[2024-07-04 16:44] LABS: Bilirubin Urine NEGATIVE (NEGATIVE); Blood Urine LARGE (NEGATIVE); Clarity Urine CLEAR (CLEAR); Color Urine YELLOW (YELLOW); Glucose Urine UA NEGATIVE (NEGATIVE); Ketones Urine NEGATIVE (NEGATIVE); Leukocyte Esterase Urine LARGE (NEGATIVE); Nitrite Urine POSITIVE (NEGATIVE); Protein Urine 100 mg/dL (NEG/TRACE); Specific Gravity Urine 1.015 (1.005-1.025); pH Urine 7.5 (5.0-9.0)
[2024-07-04 16:48] LABS: Urine Microscopic Indicated YES
[2024-07-04 17:01] LABS: Bacteria Urine MODERATE #/HPF (NONE SEEN); Mucus Urine NONE SEEN (NONE SEEN); Squamous Epithelial Cell Urine FEW #/LPF (NONE/RARE)
[2024-07-04 17:02] LABS: Cast Seen? NONE SEEN #/LPF (NONE SEEN); Crystals Seen? None Seen #/HPF (None Seen); RBC Urine 20-50 #/HPF (0-2); Urine Culture Indicated YES; WBC Urine 20-50 #/HPF (NONE SEEN)
[2024-07-04 17:12] LABS: Band Neutrophils Absolute 0.7 10^3/uL (0.0-0.3); Eosinophils Absolute Manual 0.24 10^3/uL (0.00-0.70); Lymphocytes Absolute Manual 0.24 10^3/uL (1.20-3.80); Monocytes Absolute Manual 1.23 10^3/uL (0.30-0.80); Segmented Neut Absolute Manual 9.84 10^3/uL (1.4-6.5)
[2024-07-04 17:13] LABS: Lactate/Lactic Acid 0.6 mmol/L (0.4-2.0); Sodium 134 mmol/L (136-145)
[2024-07-04 17:14] LABS: Anion Gap 12.5; Aspartate Amino Transferase 12 U/L (15-37); Bilirubin Total 0.3 mg/dL (0.2-1.0); Calcium 8.9 mg/dL (8.5-10.1); Carbon Dioxide 23.2 mmol/L (21.0-32.0); Chloride 101 mmol/L (98-107); Estimated GFR (African America >60 (>=60); Estimated GFR (Non-African Ame >60 (>=60); Glucose 78 mg/dL (74-106)
[2024-07-04 17:15] LABS: Alanine Aminotransferase 9 U/L (14-59); Albumin Globulin Ratio 0.4; Albumin Level 1.9 g/dL (3.4-5.0); Alkaline Phosphatase 160 U/L (46-116); Globulin 4.7 g/dL; Total Protein 6.6 g/dL (6.4-8.2)
[2024-07-04 17:16] LABS: Potassium 2.7 mmol/L (3.5-5.1)
--- NOTE | 2024-07-04 17:33 | PC.NURSE ---
incidental finding of pt being at this time. Dr Dyer in room discussing with pt and boyfriend. Pt emotional -- this RN providing support. heart tones taken, 154.
[2024-07-04] MEDS: CEFTRIAXONE 1,000 MG in 0.9 % SODIUM CHLORIDE 50 ML 100 MG IV (18:06)
[2024-07-04] MEDS: POTASSIUM CHLORIDE 10 MEQ ER TABLET 40 MEQ PO (18:06)
--- NOTE | 2024-07-04 18:52 | PC.NURSE ---
assisted Dr Dyer with pelvic exam at this time. ATB completed.
--- NOTE | 2024-07-04 18:59 | US_ITS ---
[address] [address] Patient Name: CHRISTINA PERALTA MRN: [id number] date: 1985 Sex: F Assigned Patient Location: ER Current Patient Location: Accession/Order Number: [id number] Exam Date: 07/04/2024 19:50 Report Date: 07/04/2024 21:11 At the request of: TY MARTÍNEZ Procedure: US OB BPP wo non-stress EXAM: US OB BPP wo non-stress HISTORY: - [place] WEEKS COMPARISON: None. TECHNIQUE: Transabdominal sonographic images of the pelvis were obtained in standard projections. FINDINGS: There is a single living intrauterine in the cephalic position. The heart rate is documented at 156 beats per minute. The amniotic fluid index is calculated at 12.8 cm. Biophysical profile measurements are as follows: tone: 2 movement: 2 Amniotic Fluid: 2 breathin Total biophysical profile score: 8/8.] US/US OB BPP wo non-stress IMPRESSION: 1. Single living intrauterine with cardiac and somatic motion documented. 2. Biophysical profile score: 8/8. Electronically authenticated by: JOSE G BOB Date: 07/04/2024 21:11
[2024-07-04] MEDS: ACETAMINOPHEN 325 MG TABLET 650 MG PO (20:05)
== END 2024-07-04 21:00 | disposition short-term general hospital (02) ==
PROVIDERS: Emergency Provider Emergency Medicine; PCP Internal Medicine
DX: O23.40 Unspecified infection of urinary tract in pregnancy, unspecified trimester (principal); N39.0 Urinary tract infection, site not specified; O99.280 Endocrine, nutritional and metabolic diseases complicating pregnancy, unspecified trimester; E87.6 Hypokalemia; Z96.0 Presence of urogenital implants; O99.334 Smoking (tobacco) complicating childbirth; F17.200 Nicotine dependence, unspecified, uncomplicated; Z3A.00 Weeks of gestation of pregnancy not specified; O26.899 Other specified pregnancy related conditions, unspecified trimester; G82.20 Paraplegia, unspecified; K63.9 Disease of intestine, unspecified; R10.84 Generalized abdominal pain
CPT/HCPCS: 36415; 74019; 74176; 76819; 80053; 81001; 83605; 85007; 85027; 87040; 87086; 93005; 96365; 96375; 99285; J0696; J1885

== ENCOUNTER 2024-08-12 13:09 | Emergency (ER) | payer OTHER, SELFPAY ==
[2024-08-12] VITALS (42 sets, daily range): BP systolic 104–134; BP diastolic 47–105; PULSE 70–137; TEMP 36.6; O2SAT 98–100
[2024-08-12] MEDS: OXYTOCIN 10 UNIT/ML VIAL IM (13:15)
--- NOTE | 2024-08-12 13:15 | PC.NURSE ---
1257 pt arrives in ER, given prior to arrival, large amount of blood and umbilical cord still attached. 1300 umbilical cord clamped and cut, handed over to [facility] staff in ER 1300 NC at 5L, 2nd IV started and LR up running 1309 104/70 1315 IM Pit given Placenta delivered 1316 O neg blood up at 125mls, increased at 1320 to 150 mls/hr 1318 122/80, heart rate 98, 98% 5Lnc, PIT bolus starts O neg up to 200 mls/hr and BP 106/75 1325 EKG complete HR 112, resp 18, Pulse ox 100%, warm blankets provided
[2024-08-12] MEDS: 0.9 % SODIUM CHLORIDE 250 ML 10 ML IV (13:16)
[2024-08-12] MEDS: OXYTOCIN/0.9 % SODIUM CHLORIDE 20 UNITS/1,000 ML PLAST..BAG 300 UNIT IV (13:20)
--- NOTE | 2024-08-12 13:30 | PC.NURSE ---
1330 O neg blood increased to 250 ml/ hr and 2nd bag of O neg up and running per DR order 1331 BP 110/76, HR 96, 100% on 5L nc. 1335, DR Lambert checks pt's uterus.
--- NOTE | 2024-08-12 13:38 | ECG_ITS ---
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
--- NOTE | 2024-08-12 13:39 | PC.NURSE ---
1345 pt cleansed and 2nd bag of is not running as previously charted, but is spiked and hanging and ER DR verbalized not suing the secend unit of blood. This unit taken down and will be waisted. 1345 BP 125/47, HR 97, 99% L nc. by pt's side. 1351 HR 74, resp 16.
[2024-08-12 13:41] LABS: Basophils Absolute Auto 0.1 10^3/uL (0.0-0.1); Basophils Percent Auto 0.3 % (0.2-2.0); Eosinophils Absolute Auto 0.1 10^3/uL (0.0-0.7); Eosinophils Percent Auto 0.6 % (0.9-7.0); Hematocrit 37.1 % (36.0-48.0); Hemoglobin 12.4 g/dL (12.0-16.0); Immature Granulocytes Abs Auto 0.17 10^3/uL (0.00-0.03); Immature Granulocytes Pct Auto 0.8 % (0.0-0.5); Lymphocytes Absolute Auto 2.2 10^3/uL (1.2-3.8); Lymphocytes Percent Auto 10.5 % (20.5-60.0); Mean Corpuscular HGB Conc 33.4 g/dL (29.9-35.2); Mean Corpuscular Hemoglobin 30.9 pg (26.7-34.0); Mean Corpuscular Volume 92.5 fL (81.0-99.0); Mean Platelet Volume 10.8 fL (9.5-13.5); Monocytes Absolute Auto 1.4 10^3/uL (0.3-0.8); Neutrophils Absolute Auto 16.5 10^3/uL (1.4-6.5); Neutrophils Percent Auto 80.8 % (43.0-75.0); Platelet Count 540 10^3/uL (150-450); Red Blood Count 4.01 10^6/uL (4.20-5.40); Red Cell Distribution Width 14.2 % (11.0-15.0); White Blood Count 20.5 10^3/uL (4.0-11.0)
[2024-08-12 13:48] LABS: Anion Gap 14.5; BUN Creatinine Ratio 26.3; Calcium 9.3 mg/dL (8.5-10.1); Carbon Dioxide 21.5 mmol/L (21.0-32.0); Chloride 103 mmol/L (98-107); Estimated GFR (African America >60 (>=60 mL/min/1.73m^2); Estimated GFR (Non-African Ame >60 (>=60 mL/min/1.73m^2); Glucose 94 mg/dL (74-106); Sodium 135 mmol/L (136-145)
--- OUTSIDE RECORDS SUMMARY | 2024-08-12 14:05 | XMS_ITS | CCD ---
Author Organization [facility] Care Team Providers Care Counter Roller Name Role Phone PROVIDER, UNKNOWN Attending Unavailable PROVIDER, UNKNOWN Admitting Unavailable PROVIDER, UNKNOWN Attending Unavailable AL MASHNI, KLAUDIA Referring Unavailable PROVIDER, UNKNOWN Admitting Unavailable PROVIDER, UNKNOWN Admitting Unavailable PROVIDER, UNKNOWN Attending Unavailable PATIENT, SELF Referring Unavailable AL MASHNI, KLAUDIA Admitting Unavailable AL MASHNI, KLAUDIA Attending Unavailable AL MASHNI, KLAUDIA Admitting Unavailable AL MASHNI, KLAUDIA Attending Unavailable HEMMER, DR MELY Sorenson Admitting Unavailable HEMMER, DR MELY Sorenson Attending Unavailable HEMMER, DR MELY Sorenson Consulting Unavailable SHARIFA MESA Admitting Unavailable SHARIFA MESA Attending Unavailable SHARIFA MESA Consulting Unavailable Dalton Saez MD Unavailable [phone] Nathalia Justice MD Unavailable Tirjustice SALES AND MARKETING AGENT-ADULT CROSSING GUARD, Tracy Unavailable Herminio SALES AND MARKETING AGENT-ADULT CROSSING GUARD, Evelina Unavailable SHARIFA MESA PROGRAMMING INTERN-C Primary Care Physician [phone] Yun Hermosillo Unavailable Unavailable Maria De Jesus Denton I Unavailable Unavailable Sandeep LOPEZ Attending Unavailable Rach Ledbetter Attending Unavailable MENDOZA GIPSON Attending Unavailab SHARIFA Davison NP-C Referring Unavailable Singh Morse MD Unavailable Singh Morse MD Primary Care Provider SHARIFA MESA Attending Unavailable SHARIFA MESA Attending Unavailable SHARIFA MESA Attending Unavailable SHARIFA MESA Attending Unavailable JEWELS SHARPE Attending Unavailable SHARIFA MESA Attending Unavailable Dalton Saez MD Unavailable Tirbaso SALES AND MARKETING AGENT-ADULT CROSSING GUARD, Tracy Unavailable Gut SALES AND MARKETING AGENT-ADULT CROSSING GUARD, Evelina Unavailable Allsop DO, Alice Sweetie Primary Care Provider Chava ARMSTRONG, Salima Unavailable Unavailable Pato Lambert DO Unavailable Tuesday STOCK PREPARATION SUPERVISORElisa Unavailable Sreekanth Dey Attending Unavailable Dey, Sreekanth J Admitting Unavailable MORSE, SINGH Primary Care Unavailable Dey, Sreekanth Alberto Attending Unavailable Dey, Sreekanth J Admitting Unavailable MORSE, SINGH Primary Care Unavailable MORSE, SINGH Primary Care Unavailable Dey, Sreekanth J Attending Unavailable Dey, Sreekanth J Admitting Unavailable Dey, Sreekanth J Attending Unavailable Dey, Sreekanth J Admitting Unavailable MORSE, SINGH Primary Care Unavailable Dey, Sreekanth J Attending Unavailable MORSE, SINGH Primary Care Unavailable Dey, Sreekanth J Admitting Unavailable MORSE, SINGH Primary Care Unavailable Dey, Sreekanth J Admitting Unavailable Dey, Sreekanth J Attending Unavailable Dey, Sreekanth J Attending Unavailable Dey, Sreekanth J Admitting Unavailable MORSE, SINGH Primary Care Unavailable MORSE, SINGH Primary Care Unavailable Dey, Sreekanth J Admitting Unavailable Dey, Sreekanth J Attending Unavailable Dey, Sreekanth J Admitting Unavailable Dey, Sreekanth J Attending Unavailable MORSE, SINGH Primary Care Unavailable ALLSOP, ALICE SWEETIE Primary Care Unavailab RON Cabrera Attending Unavailable TRISTAN CRISOSTOMO Attending Unavailable THA AGUILAR Referring Unavailable ALLSOP, ALICE SWEETIE Primary Care Unavailab THA Chandra Referring Unavailable ALLSOP, ALICE SWEETIE Primary Care Unavailab le ALLSOP, ALICE SWEETIE Primary Care Unavailab le AHMED, AHMED Admitting Unavailable AHMED, AHMED Attending Unavailable ALLSOP, ALICE SWEETIE Primary Care Unavailab le AHMED, AHMED Admitting Unavailable AHMED, AHMED Attending Unavailable Allergies Allergy Classification Reported Allergen(s) Allergy Type Date of Onset Reaction(s) Facility (20 sources) ceFAZolin; Translations: [CEFAZOLIN] Drug Allergy 07-02-20 15 Itching, Rash [facility] Repository (20 sources) Ciprofloxacin; Translations: [CIPROFLOXACIN] Drug Allergy 07-11-20 15 Hallucinations , Eruption of skin (disorder), Unknown, Rash, Mental Status Change [facility] Repository (6 sources) Ondansetron; Translations: [ONDANSETRON] Drug Allergy 04-06-20 16 Headache, Other, Unknown [facility] Repository (2 sources) Ciprofloxacin; Translations: [Cipro] Drug Allergy 12-27-19 17 [facility] (2 sources) Ondansetron; Translations: [Zofran] Drug Allergy 12-27-19 17 [facility] Repository (7 sources) Cephalexin; Translations: [cephalexin] Drug Allergy 09-26-20 23 Rash, Unknown [facility] (4 sources) Sulfamethoxazole / Trimethoprim Drug Allergy 03-24-20 23 Diarrhea [facility] (12 sources) Ondansetron; Translations: [ONDANSETRON HCL (PF)] Drug Allergy 09-21-20 16 Other: See Comments [facility] Medications Current Medications Medication Drug Class(es) Dates Sig (Normalized) Sig (Original) acetaminophen 325 mg oral tablet (2 sources) Start: 01-29-2021 take 2 tablets by mouth every six hours as needed acetaminophen (TYLENOL) 325 mg tablet Take 2 Tablets by mouth every 6 hours as needed. 30 Tablet 01/29/2021 Active acetaminophen 325 mg / oxyCODONE hydrochloride 5 mg oral tablet (3 sources) Opioid Agonist Start: 07-20-2024 End: 08-19-2024 take 2 tablets by mouth every six hours for pain oxyCODONE-acetamino phen (Percocet) 5-325 MG tablet Indications: Other chronic pain Take 2 tablets by mouth every 6 (six) hours if needed for severe pain 120 tablet 07/20/2024 08/19/2024 Active [id number] 200 actuat albuterol 0.09 mg/actuat metered dose inhaler (17 sources) beta2-Adrenergic Agonist Start: 08-03-2023 End: 08-02-2024 take 2 puff(s) by inhalation every four hours for wheezing albuterol HFA (ProAir HFA) 90 mcg/act inhaler Indications: Mild intermittent asthma, unspecified whether complicated (CMS/HCC) Inhale 2 puffs every 4 (four) hours if needed for wheezing or shortness of breath. 8.5 g 1 08/03/2023 Active Start: 11-22-2016 albuterol (PRO VENTIL) 2.5 mg /3 mL (0.083 %) nebulizer solution 3 ml as needed 11/22/2016 Active amoxicillin 500 mg oral capsule (1 source) Penicillin-class Antibacterial Start: 08-06-2024 take 2 capsules by mouth three times daily amoxicillin (AMOXIL) 500 mg capsule Take 2 capsules by mouth three times a day. 42 capsule 08/06/2024 Active ascorbic acid 500 mg oral tablet (11 sources) Vitamin C take 1 tablet by mouth once daily ascorbic acid, vitamin C, (VITAMIN C) 500 mg tablet Take 500 mg by mouth once daily. Active baclofen 20 mg oral tablet (19 sources) gamma-Aminobutyric Acid-ergic Agonist Start: 03-04-2016 take 1 tablet by mouth four times daily at mealtime baclofen (Lioresal) 20 MG tablet Indications: Spinal cord injury at T8 level, subsequent encounter ([facility]) TAKE 1 TABLET BY MOUTH 4 TIMES DAILY, ADMINISTER WITHOUT REGARDS TO MEALS 120 tablet 11 01/12/2024 Active take 1 tablet by mouth every six hours baclofen (Lioresal) 20 MG tablet Take 20 mg by mouth every 6 (six) hours. 0 Active benzocaine 0.2 mg/mg oral gel (13 sources) Standardized Chemical Allergen Start: 08-07-2015 benzocaine 20 % gel 1 Drop. 08/07/2015 Active Start: 08-07-2015 benzocaine (HU RRICAINE) oral gel 1 Drop in the mouth as needed for Pain (for tooth pain). 1 Tube 2 08/07/2015 Active brexpiprazole 1 mg oral tablet (3 sources) Atypical Antipsychotic Start: 07-10-2024 take 1 tablet by mouth once daily Brexpiprazole (Rexulti) 1 MG tablet Indications: Mild anxiety TAKE 1 TABLET BY MOUTH EVERY DAY 14 tablet 07/10/2024 Active cholecalciferol 0.05 mg oral capsule (4 sources) Vitamin D Start: 09-14-2023 take 1 capsule by mouth once daily cholecalciferol (Vitamin D-3) 50 MCG (2000 UT) capsule Indications: Vitamin D deficiency TAKE 1 CAPSULE BY MOUTH EVERY DAY FOR 90 DAYS 30 capsule 11 09/14/2023 Active cholecalciferol, vitamin D3, (CHOLECALCIFEROL, VITD3,, BULK,) 100,000 unit/gram powd (11 sources) cholecalciferol, vitamin D3, (CHOLECALCIFEROL, VITD3,, BULK,) 100,000 unit/gram powd Take by mouth. Suspended cholecalciferol, vitamin D3, (CHOLECALCIFEROL, VITD3,, BULK,) 100,000 unit/gram powd Take by mouth. Active Cranberry-Vit C-Lactobacillus (RA Cranberry Supplements) 450-30 MG tablet (3 sources) Start: 03-01-2024 take 1 tablet by mouth once daily Cranberry-Vit C-Lactobacillus (RA Cranberry Supplements) 450-30 MG tablet Indications: Recurrent UTI Take 1 tablet by mouth Daily 100 tablet 3 03/01/2024 Active Cymbalta 60 mg Cap-DR (2 sources) Start: 08-26-2017 take 2 capsules by mouth once daily in the morning Cymbalta 60 mg Cap-DR 120 mg, Oral, Daily, in the am, Refills(s) 0, Pain Start Date: 08/26/17 Status: Ordered dicyclomine hydrochloride 10 mg oral capsule (2 sources) Anticholinergic Start: 01-29-2021 take 1 capsule by mouth four times daily dicyclomine (BENTYL) 10 MG capsule Take 1 Capsule by mouth 4 times daily. 120 Capsule 3 01/29/2021 Active docusate sodium 100 mg oral capsule (15 sources) Start: 11-16-2023 take 1-2 capsules by mouth once daily as needed docusate sodium (Colace) 100 MG capsule Indications: Constipation, unspecified constipation type TAKE 1 TO 2 CAPSULES BY MOUTH NEEDED ONCE DAILY FOR 30 DAYS 60 capsule 11 11/16/2023 Active Start: 12-20-2016 take 1 capsule by mo ut twice daily docusate sodium (COLACE) 100 mg capsule Take 1 capsule by mouth twice daily. 30 capsule 12/20/2016 Active DULoxetine 60 mg delayed release oral capsule (20 sources) Serotonin and Norepinephrine Reuptake Inhibitor Start: 07-10-2024 End: 07-27-2024 take 2 capsules by mouth once daily DULoxetine (Cymbalta) [address] capsule Indications: Mild anxiety Take 2 capsules (120 mg) by mouth Daily 60 capsule 52 07/27/2024 Active Start: 09-05-2023 take 2 capsules by m outh once daily DULoxetine (Cymbalta) [address] capsule Indications: Mild anxiety TAKE 2 CAPSULES BY MOUTH EVERY DAY 60 capsule 5 06/21/2023 Active Start: 01-30-2021 take 1 capsule by mo uth once daily duloxetine (CYMBALTA) 60 MG capsule Take 1 Capsule by mouth daily. 30 Capsule 3 01/30/2021 Active take 1 capsule by mo uth once daily DULoxetine (CYMBALTA) 30 mg capsule Take 30 mg by mouth once daily. Active esomeprazole 40 mg delayed release oral capsule (2 sources) Proton Pump Inhibitor Start: 01-30-2021 take 1 capsule by mouth once daily 30 minutes before breakfast esomeprazole (NEXIUM) 40 MG capsule Take 1 Capsule by mouth daily (30 minutes before breakfast). 30 Capsule 3 01/30/2021 Active fluticasone propionate 0.05 mg/actuat metered dose nasal spray (4 sources) Corticosteroid Start: 08-03-2023 End: 08-02-2024 take 2 spray(s) nasal route in the morning fluticasone (Flonase) 50 MCG/ACT nasal spray Indications: URI, acute Administer 2 sprays into each nostril in the morning. Shake gently. Before first use, prime pump. After use, clean tip and replace cap.. 16 g 1 08/03/2023 Active gabapentin 600 mg oral tablet (20 sources) Anti-epileptic Agent Start: 08-06-2024 End: 08-17-2024 gabapentin (NEURONTIN) 600 mg tablet Take one and a half tablets by mouth four times daily for 42 doses. 63 tablet 08/06/2024 08/17/2024 Active Start: 02-13-2024 take 3 capsules by m outh four times daily gabapentin (Neurontin) 300 MG capsule Indications: Acute radial nerve palsy of right upper extremity TAKE 3 CAPSULES BY MOUTH 4 TIMES DAILY 360 capsule 11 02/13/2024 Active Start: 12-14-2019 take 1 capsule by mo uth four times daily gabapentin (NEURONTIN) 300 mg capsule TK 1 C PO QID 12/14/2019 Active gabapentin (NEUR ONTIN) 600 mg tablet Take 900 mg by mouth three times daily. Active take 3 capsules by m outh four times daily in the morning gabapentin (Neurontin) 300 MG capsule Take 900 mg by mouth in the morning and 900 mg at noon and 900 mg in the evening and 900 mg before bedtime. Take 3 capsules by mouth 4 times a day.. 0 Active honey (MEDIHONEY) GEL gel (2 sources) Start: 01-29-2021 honey (MEDIHON EY) GEL gel Apply topically daily. 01/29/2021 Active Start: 01-29-2021 honey (MEDIHON EY) GEL gel Apply topically daily. 0 01/29/2021 Active ibuprofen 400 mg oral tablet (2 sources) Nonsteroidal Anti-inflammatory Drug Start: 01-29-2021 take 1 tablet by mouth every six hours as needed ibuprofen (MOTRIN) 400 MG tablet Take 1 Tablet by mouth every 6 hours as needed. 30 Tablet 3 01/29/2021 Active melatonin 3 mg oral tablet (13 sources) Start: 08-06-2024 take 1 tablet by mouth once daily at bedtime melatonin 3 mg tablet Take 1 tablet by mouth daily at bedtime. 42 tablet 08/06/2024 Active melatonin 1 mg t ablet Take 3 mg by mouth. Active 24 hr mirabegron 25 mg extended release oral tablet (4 sources) beta3-Adrenergic Agonist Start: 12-12-2023 Myrbe triq 25 MG 24 hr tablet Indications: Neuromuscular dysfunction of bladder TAKE 1 TABLET DAILY 30 tablet 4 12/12/2023 Active Start: 07-20-2023 mirabegron ER (Myrbetriq) 25 MG 24 hr tablet Indications: Neuromuscular dysfunction of bladder TAKE 1 TABLET EVERY DAY 30 tablet 4 07/20/2023 Active Multivitamin capsule (11 sources) take 1 capsule by mo uth once daily Multivitamin capsule Take 1 capsule by mouth once daily. Suspended take 1 capsule by mouth once scar ly Multivitamin capsule Take 1 capsule by mouth once daily. Active naloxone hydrochloride 40 mg/ml nasal spray (5 sources) Opioid Antagonist Start: 04-03-2020 take 4 mg nasal route every twenty-four hours as needed naloxone (Narcan) 4 mg/0.1 mL nasal spray Administer 4 mg into affected nostril(s) Daily as needed 07/09/2024 Active 24 hr nicotine 0.583 mg/hr transdermal system (3 sources) Cholinergic Nicotinic Agonist Start: 07-10-2024 nicotine (Nicoderm, Step 2) 14 MG/24HR patch Place 1 patch on the skin in the morning. 07/10/2024 Active nystatin 002018 unt/ml topical cream (3 sources) Polyene Antifungal Start: 12-11-2023 nystatin (Mycostatin) cream APPLY TO AFFECTED AREA TWICE A DAY FOR 14 DAYS AND NEEDED 12/11/2023 Active omeprazole 20 mg oral tablet (15 sources) Proton Pump Inhibitor Start: 06-29-2016 take 20 mg by mouth once daily as needed Prilosec 20 mg, Oral, Daily, PRN Control of stomach acid, Refills(s) 0, Control of stomach acid Start Date: 06/29/16 Status: Ordered take 2 capsules by out once daily as needed omeprazole (PRILOSEC) 20 mg capsule Take 40 mg by mouth once daily as needed. Active ondansetron 8 mg oral tablet (4 sources) Serotonin-3 Receptor Antagonist take 1 tablet by mouth in the morning ondansetron (Zofran) 8 MG tablet Take 8 mg by mouth in the morning. Active 24 hr oxybutynin chloride 10 mg extended release oral tablet (15 sources) Cholinergic Muscarinic Antagonist Start: 9 take 1 tablet by mouth once daily oxybutynin ER (DITROPAN XL) 10 mg 24 hr tablet Take 1 tablet by mouth once daily. 30 tablet 11 05/07/2019 Active Start: 08-26-2017 take 1 tablet by lynn th three times daily oxybutynin (DITROPAN) 5 MG tablet Take 1 Tablet by mouth 3 times daily. 90 Tablet 3 01/29/2021 Active oxyCODONE hydrochloride 5 mg oral tablet (20 sources) Opioid Agonist Start: 12-20-2016 take 1 tablet by mouth every four hours as needed oxyCODONE IR (ROXICODONE) 5 mg immediate release tablet Take 1 tablet by mouth every 4 hours as needed for Pain (1-2 Q4 h as needed for pain). 28 tablet 01/03/2017 Active take 1 tablet by lynn th every six hours as needed for pain oxyCODONE 5 MG immediate release tablet Take 5 mg by mouth every 6 hours as needed for Pain. Active Prenat w/o M-LH-Jqxkzpm-FA-DHA (PNV-DHA) 27-0.6-0.4-300 MG capsule (2 sources) Start: 07-10-2024 Prenat w/o A-BK-Cughtwn-FA-DHA (PNV-DHA) 27-0.6-0.4-300 MG capsule Use 1 capsule in the mouth or throat 07/10/2024 Active [id number] acid ( 19) 29 mg iron- 1 mg (1 source) Start: 08-06-2024 take 1 tablet by mouth once daily [id number] acid ( 19) 29 mg iron- 1 mg Take 1 tablet by mouth once daily. 30 tablet 2 08/06/2024 Active promethazine hydrochloride 25 mg rectal suppository (14 sources) Phenothiazine Start: 06-18-2016 promethazine (PHENERGAN) 25 MG suppository 1 tablet as needed 06/18/2016 Active Start: 03-04-2016 take 1 tablet by lynn th every six hours as needed for nausea Phenergan 25 mg Tab 25 mg = 1 tab(s), Oral, q6hr, PRN as needed for nausea/vomiting, Refills(s) 0 Start Date: 03/04/16 Status: Ordered rOPINIRole 1 mg oral tablet (20 sources) Nonergot Dopamine Agonist Start: 08-06-2024 take 3 tablets by mouth once daily rOPINIRole (REQUIP) 1 mg tablet Take 3 tablets by mouth once daily. 63 tablet 08/06/2024 Active Start: 01-16-2024 take 1 tablet by lynn th 3 hour(s) before bedtime rOPINIRole (Requip) 0.25 MG tablet Indications: Muscle spasticity TAKE 1 TABLET BY MOUTH 3 HOURS BEFORE BEDTIME 30 tablet 11 01/16/2024 Active Start: 01-29-2021 take 1 tablet by lynn th at bedtime rOPINIRole (REQUIP) 0.5 MG tablet [...] Status: Ordered take 1 tablet by lynn th at bedtime rOPINIRole (Requip) 0.25 MG tablet Take 0.25 mg by mouth at bedtime. 0 Active sertraline 25 mg oral tablet (11 sources) Serotonin Reuptake Inhibitor take 3 tablets by mouth once daily sertraline (ZOLOFT) 25 mg tablet Take 75 mg by mouth once daily. Active solifenacin succinate 10 mg oral tablet (6 sources) Cholinergic Muscarinic Antagonist Start: 07-20-20 23 solifenacin (VESIcare) 10 MG tablet Indications: Acne vulgaris TAKE 1 TABLET DAILY 30 tablet 4 06/07/2024 Active sulfamethoxazole 800 mg / trimethoprim 160 mg oral tablet (11 sources) Dihydrofolate Reductase Inhibitor Antibacterial, Sulfonamide Antimicrobial Start: 01-25-20 17 take 1 tablet by mouth twice daily sulfamethoxazole-t rimethoprim (BACTRIM DS) 800-160 mg per tablet Take 1 tablet by mouth twice daily. 14 tablet 01/24/2017 Active tiZANidine 2 mg oral tablet (1 [...] Active traZODone hydrochloride 50 mg oral tablet (17 sources) Serotonin Reuptake Inhibitor Start: 10-27-19 16 End: 03-06-20 25 take 1 tablet by mouth at bedtime traZODone (Desyrel) 50 MG tablet Indications: Depressive disorder due to another medical condition with depressive features Take 1 tablet (50 mg) by mouth at bedtime 90 tablet 3 03/06/2024 03/06/2025 Active tretinoin 0.25 mg/ml topical cream (6 sources) Retinoid Start: 02-13-20 24 tretinoin (Retin-A) 0.025 % cream Indications: Acne vulgaris APPLY TO AFFECTED AREA EVERY DAY AT BEDTIME 45 g 2 02/13/2024 Active Start: 07-20-2023 tretinoin (Ret in-A) 0.025 % cream Indications: Acne vulgaris APPLY TO AFFECTED AREA EVERY DAY AT BEDTIME 45 g 2 07/20/2023 Active Start: 08-07-2015 tretinoin (RET IN-A) 0.1 % cream Apply topically at bedtime. Apply thin layer to affected area. 45 g 3 08/07/2015 Active 24 hr venlafaxine 150 mg extended release oral capsule (2 sources) Serotonin and Norepinephrine Reuptake Inhibitor take 1 capsule by mouth once daily venlafaxine (Effexor XR) 150 MG ER capsule Take 150 mg by mouth daily. Active Zinc Sulfate (11 sources) zinc sulfate (ZINC-220 ORAL) Take by mouth. Suspended zinc sulfate (ZI NC-220 ORAL) Take by mouth. Active Completed/Discontinued Medications Medication Drug Class(es) Dates Sig (Normalized) Sig (Original) pantoprazole (10 sources) Proton Pump Inhibitor pantoprazo le sodium (PANTOPRAZOLE ORAL) Take by mouth. Suspended pantoprazole sod ium (PANTOPRAZOLE ORAL) Take by mouth. Active pregabalin 200 mg oral capsule (10 sources) Start: 09-28-2019 Pregabalin (LYRICA) 200 mg capsule 09/28/2019 Suspended rifAMPin 300 mg oral capsule (10 sources) Rifamycin Antibacterial take 1 capsule by mouth once daily rifAMPin (RIFADIN) 300 mg capsule Take 300 mg by mouth once daily. Suspended Problems Active Problems Problem Classification Problem Date Documented Da te Episodic/Chronic Allergic reactions (2 sources) Exogenous dermatitis; Translations: [Unspecified contact dermatitis, unspecified cause] Onset: 4 08-01-2024 Episodic Anxiety disorders (7 sources) Anxiety; Translations: [Mild anxiety] Onset: 3 01-19-2016 Chronic Aortic; peripheral; and visceral artery aneurysms (3 sources) Dissection of carotid artery; Translations: [Dissection of carotid artery] Onset: 4 11-24-2023 Chronic Asthma (6 sources) Mild intermittent asthma; Translations: [Mild intermittent asthma, uncomplicated] Onset: 0 05-01-2020 Chronic Bacterial infection; unspecified site (11 sources) Bacteremia due to Methicillin resistant Staphylococcus aureus; Translations: [Bacteremia] Onset: 3 04-03-2020 Episodic Chronic ulcer of skin (20 sources) Pressure ulcer of buttock; Translations: [Pressure ulcer of unspecified buttock, unspecified stage] Onset: 5 06-18-2015 Chronic Diseases of white blood cells (3 sources) Leukocytosis; Translations: [Elevated white blood cell count, unspecified] Onset: 4 11-24-2023 Chronic Disorders of lipid metabolism (4 sources) Raised low density lipoprotein cholesterol; Translations: [Pure hypercholesterolemia, unspecified] Onset: 3 03-24-2023 Chronic Esophageal disorders (6 sources) Gastroesophageal reflux disease without esophagitis; Translations: [Gastro-esophageal reflux disease without esophagitis] Onset: 0 05-01-2020 Chronic Genitourinary symptoms and ill-defined conditions (20 sources) Unspecified urinary incontinence; Translations: [Incontinence] Onset: 6 Chronic Infective arthritis and osteomyelitis (except that caused by tuberculosis or sexually transmitted disease) (6 sources) Osteomyelitis; Translations: [Osteomyelitis, unspecified] Onset: 0 03-21-2020 Chronic Mood disorders (4 sources) Reactive depression (situational); Translations: [Major depressive disorder, single episode, unspecified] Onset: 3 03-24-2023 Chronic Osteoporosis (5 sources) Disuse osteoporosis; Translations: [Other osteoporosis without current pathological fracture] Onset: 6 04-27-2016 Chronic Other aftercare (4 sources) Other jumpbasting canvas baster (current) drug therapy; Translations: [OTH SHELTER CURRENT DRUG THERAPY] Onset: 2 Episodic Other complications of (2 sources) Maternal obesity complicating , childbirth and the puerperium, antepartum; Translations: [Obesity complicating , third trimester] Onset: 4 08-02-2024 Chronic Other complications of (3 sources) Urinary tract infection in ; Translations: [Unspecified infection of urinary tract in , third trimester] Onset: 4 08-02-2024 Episodic Other complications of (2 sources) High risk ; Translations: [Supervision of high risk , unspecified, unspecified trimester] Onset: 4 08-02-2024 Episodic Other complications of (2 sources) Elderly primigravida; Translations: [Supervision of elderly primigravida, third trimester] Onset: 4 08-02-2024 Episodic Other complications of (2 sources) heart deceleration; Translations: [Maternal care for abnormalities of the heart rate or rhythm, unspecified trimester, not applicable or unspecified] Onset: 4 08-02-2024 Episodic Other complications of (2 sources) Flank pain; Translations: [Other specified related conditions, unspecified trimester] Onset: 4 08-02-2024 Episodic Other complications of (2 sources) Unspecified infection of urinary tract in , third trimester; Translations: [Infection of urinary tract in in third trimester] Onset: 4 Episodic Other complications of (1 source) Maternal tobacco use; Translations: [Smoking (tobacco) complicating , third trimester] Onset: 4 08-04-2024 Episodic Other diseases of bladder and urethra (18 sources) Neurogenic bladder; Translations: [Neuromuscular dysfunction of bladder, unspecified] Onset: 5 08-07-2015 Chronic Other diseases of bladder and urethra (4 sources) Bladder dysfunction; Translations: [Neuromuscular dysfunction of bladder, unspecified] Onset: 3 03-24-2023 Chronic Other diseases of bladder and urethra (14 sources) Low compliance bladder; Translations: [Other neuromuscular dysfunction of bladder] Onset: 6 09-21-2016 Chronic Other diseases of bladder and urethra (1 source) Neuromuscular dysfunction of bladder, unspecified; Translations: [Neurogenic bladder] Onset: 7 Chronic Other female genital disorders (16 sources) Urethrovaginal fistula; Translations: [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] Onset: 1 07-09-2024 Chronic Other female genital disorders (11 sources) Vesicovaginal fistula; Translations: [Vesicovaginal fistula] Onset: 1 12-22-2020 Chronic Other female genital disorders (1 source) 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; Translations: [Urethrovaginal fistula] Onset: 1 Chronic Other gastrointestinal disorders (5 sources) Neurogenic bowel; Translations: [Neurogenic bowel, not elsewhere classified] Onset: 5 08-07-2015 Chronic Other hereditary and degenerative nervous system conditions (4 sources) Restless legs; Translations: [Restless legs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 wIi8+OBJbgMD2eUH0yH1nWc PdFbU3EFyxQ216JqLkiLUiX mvwX75i E7GznWC+ZVSlZzy7KWXnfWj dAM9zsKFbIFwhHj2aOMM1Ta QyRfHrMVwrL5NtDLUuvpauk mlnaHQ6 FGHmLKCpqR77Ur5xwXywCj7 bKOIvWHV0IBEesOIxH1DvpB 8cKrHqNJBlALCdC8UknDOeM UlqZ307 UFtwVgS4GGWiloKyV0JyBSJ qwAukXhR2i1C1Az8WhEqziA NtKA0wIpFvVKv1G5YqJaf2Q CBzdHls LX9gyCYsUNbyTw8liKeosGv xKQ9wGMPwvxmvb862PsYfd4 dsRBXpbVFhHXveFGZ8W83fz 3R8DAIo SAOpZAJ1iYQ7uE2tlYwchoz gbGVmdDsgdmVydGljYWwtYW orP098AQGvxVltMtVPZzw0S 3XuFpt7 YMVkoQmuFW7mvPLsBJsyMf5 ltRbbxDuwKV5jEYVzvabvv1 69HfYsv9osQMDkzMDpCPdwJ VG6O41e f8U4NLCoLXIyLLK6dMC4dM3 hbGlnbjogbGVmdDsgdmVydG iqWNowHSflE611KAXqjKesR c4TOen1 M3NaHso1JOCstZimHS4dfEL cQYbyMd2ocYbmbGemNE2cCK Dbsipbw512TgWwl2ufIMKxz HQgVGlt LDH5X04cw4U2AIYnHYTnFKW 2eFY3lO3viYvmuhmxjQPbqP ionqZrgSswIZseQZtbM838H HRvcDsn PlBheWVyOjwvdGQ+KT22cw3 7O9HjVibrHtd9FLBhXIS6eP W7fV8eLJSaXIoso2L8cYO5I 2JvcmRl ci1 (more content not included)... [facility] Coding Summary HTMLBase 64 OhdbnemxSCe4wJj+PGhlYWQ +VE1PTBLsE86qfPBrdV4nU4 NMTElOSywgQVBQTElOSyIgb zPqGY1cjLIuQTKt IC8+FS2fMYQjOjtjuLCmt7P 4dXA7A81kti0dQZqstRA6SZ JnOhQwjtrdi1rwqFa2BZdqV mluOyBt YCNnoH39GBX2bN94Hj60wIV itJZbz6mznLl0NxFgGGWzFC B9gCrzFSkzl0JdZBGcG09ow WJps6K6 BSLjbWjgrBPqTxEvdYB9bA2 iDRfndguqa7sxtlprGmq5sf 15rHWvg9T0uOY9T7CrnfE0O GJvbGQg LxkzhSVBiB1qfpxcs1pmmdq gEjLsVAVrNMr2YWd9CJHerX vtPrLzXO44QYA1KCSxosCzN 2FsLWFs mOcrThU3l3O3Cg6MY3IGWih vG2TXDPOHHInjbTN+PC90cj 70O9CiGlxhSmy4UHWnSSW5s SC2oE0l ANLaBRbkw4L9pNA6V3RtvkE jvp9yt0sjKHOjYRhyX73asH Pcd8Q8FZVvyCZ8JKXbhCwjK iBzaG93 Oyc+FOCheCapu3TcQhpdn8p gb9bjdBg7UndsHFBuhlYomP chKJA8t7TfIs8jWFQzrIS0h CN8wJ7p IcUeAmD3KMxjB897IrGclEC gVvxiH15oI4VrbWU+PHRyPj m7ZFAnlXcbHP2uH1UqWKJxq mctbGVm gCqmBL9bHCNytsbcZJPltX1 xTUPxX1z5NgIiCiU2JQxnG3 PrLGJxrugaYm50kL3tCdUkY uF9ZXkf I1YaheU1BVGrjZAhEKqiVUN 1E69uo2V1OKBuPCOfROI4xJ T0lG9kqEjzntjczKSiyEszq mVydGlj DQdvRAvmI147IQVrpQmyArS vZGluZyBEYXRlOiAgMDMvMT gvMjAyNDwvdGQ+RWThIXZ6q WxlPSAn yQQgHMhaUq3rdLaenCnqDE2 pDBTcpvykSJRzyT1rSTMmxT CxeDkkMK6wTXOfaezdl638I iAxMHB0 TULtvHMuP7MvmG1yVaDhMXH gFBYrF4CajCKdTGwyW418IE msRbL3BRVnekIkA6JlDFUdr WduOiB0 v0N2La9Bb2DfaxqoC7JcqPA mRtOpHuurVZe1W2OlOpkapA I+GT21MZQyDQ55KNn8GEB2n WxlPSdi KJGpH3TfnH8lEkMoXLDeLZG kOyc+PHRhYmxlIHdpZHRoPS mjLIWpMwDyzAydLW7mZm2nP GVyLWNv sQtuxZZnDgQmy4mrXCHhWWo ySC6kzIsqL7GikDL4UDKqr9 s6Vr24Y10aL5HedIW+PGNvb JF7sUI3 dG5lQiHcPwU7RIrdD126WcB kaIDwMjnee1xww9bneWe2Es S8OLCzmyBmyTrwKUY9s0JaZ q08J49y IHdpZHRoPSIxNSUiIHZhbGl knd1qlS6iGl4+FIMvaDU8yY D6iP7uEoUhIjL1PGrbS944N nRvcCIv Gbooz5llc1cdyQn6EyPuZKB wfuLsqLxtHYI7n2EpYg03B1 IufMtnc7PaCrx4ja28pOPje 3R8xTH0 N3XuLRBgqmzokCErxMceJC7 yZRLzjnsxKRNiwS7wGORhM4 e4ZrZaQeT5GWtiT8DtucB7X GJvbGQg SDYzfAGLqT4zlpnff8tddmb fPkCePQVkDBj9EIu5QMLcxQ bvYsXzWTJ4OyD8EAZ0xFTei W1hnKex yaamnC9wCpk+EUW1zPBxhXK ZFC4eXzfnxNX+TQUhDHK0vH qaVSjcUHAunN7pUSJkZ5k6V iAwLjA1 QDogX7VvrpB1ASJfaYGuWPT lzPSDuF0lfverv9wgyzwpHr CrQMZoKUz2TIv8NRWhfTxpA iBsZWZ0 OhO2CSI1cKVbdZ6qrMjwtnm lzU5sIvt+ExcxdCztSVH1VO n7S0JsZpf1KSTkgGnuFA8co GFkZGlu Rr1seHhqnLkiWG6fBXEsjfp yf554BnVsk5hnQYDfoYYbJP yaEZS5R74jx0B9COKbRRXkR OM8sMK6 oV4vzQcfogivoKCamVvmsiE inIlzIHljODcoX782IXSldS eaQtRuDJr9X2VlFmv3SYWou SkuOF2c vCLsNCgfBa8lmDkldAqgJI9 xWZRtiabkb724BgZcn8sjZK OjsGTrNWzyQIE5D15nu2O4I CMwMDAw JLB8jOP3fH3nzTbbznamvTS mdDsgdmVydGljYWwtYWxpZ2 87XMAntZgzYkVfdKk6I9GyR uo4DLGs vSbsNQ3hjPGaNXxtKv8keSs rxPdtUU1uBXLomwibr554Jw Ech3drGLFznIDuSMfoUVC7M 51bs3X7 ZIIcPGTtRZQ8xLT4uR9jhBz nbjogbGVmdDsgdmVydGljYW srQOuiS839ULSjeDsdBzEyj GllbnQg UTpfAIa3J6PhHuzsnWX+PC9 3EEGlMY84fNUjyEAgu8pmoW r5QrVwUMJnLVS7nUndHWbzc 3JkZXIt N69nsRJif4W5BPMjqItajZA oYrIbuLM8vK3wCGgykhhny7 htxtqjIehuq7lvpw08fN85L 29sIHdp ZHRoPSIzMCUiIHZhbGlnbj0 juU1uMn5+WZYbpFH6xKF8vP 7lRWLjDnW7GXtxR401IlFyn CIvPjxj h1qzg0hyyZu9ErV1ZUCcbkB waDsrCVX9e4XzBm88J32kXK dpZHRoPSIyMCUiIHZhbGlnb w0vxM8n Ii8+IHKedZC4eHO8qV0cDaS aWaT1HWuwO745IlWlzDKgXl lbC54lI0FanMH+FOImTzt1X CBzdHls OW9maPUtKCnkNr1iIXW0LoJ nJoHwRUfwG3YcXBEhdvejrh tbiBT3KSSzXYXhtQ29Ng2nf DogMTBw hXSYgH0nkynxn5tffpmiCnX tJWVqKYn8OPp1GFFytCnvIc HtJVW5EdN6JMC2eZSpxK0sb Glnbjog jX9qK2JpEWKvuktfLm31uY4 jGtMsOoI1TSyvOnt+UkFUTE lGRiwgREFXTiBNQVJJRTwvd GQ+PHRk RQV1mDpwQCjeZVRkzD4rMQC gL6t7CvYtUpI6EXpaM7PqUX DtetvcYt06vA8wNbNoMjT4P TadH8Oj gzL0URVgwKTjJRavZOM7W84 to8H8OMHzQOHnLON5dAM4lS 1hbGlnbjogbGVmdDsgdmVyd GljYWwt GDiuV212BCKfrTqtVwMdArN tKfM6XCf7J1YyQas4XBUzuP thJE7udBZoUThfVy5yyGyxw LniWC5m PHNiueuzIPSgaR3gZTOznDD qlJzsWR5vOEZnimiaj900No BnPSQ0XSSuaEYqE8JlkZ0iD iAjMDAw QYApS2NthXOjIDbaP357MSp fWnU7MTCxolHcS8IeLBCqoJ vhByZ2z7P0Zs0pAtTJNWLnm zwvdGQ+ BXZsAPR7xCihDApzKNQahS3 qRIFkU6s1XrTdRtS1UCecQ7 AdABBxjvghZa92dI0hBsQoI bY5VMyt J3SvpiD4QENccJHnYKmmZVD 8L80lq6G9NZBpGFPzNJK3bE A9zJ8bjOtrysxnrFWcaPurt mVydGlj DPpbIEdbG418WDBitXgpLtW FTUFMRTwvdGQ+AXHtZZD8kL olUVmqYXPakZ6eFCRaM0r5Z iAwLjA1 PSqgB7PgSXVacbqqHq49tX0 wYmSbRfF9BUdvJ8TmzuC1XX PrdVRmHMukPGT7A05au8B9K CMwMDAw QBP1rMR3dF4moWrweswvrKQ mdDsgdmVydGljYWwtYWxpZ2 46IHRvcDsnPkRheSBTdXJnZ BW6WR52 YN27G5YzQunmiRWriDF+PHR hYmxlIHdpZHRoPScxMDAlJy YprNuyVL4uMl2hQGJdOFDon GxhcHNl SpJqt2gmPPNpRJtpJM2waDv fG9MgkGZ8USUon3y0Ei96R4 8oC6EmeHP+NEZmeAG3yDU8k O5fYjWo SvR4UAumL959YbAskUVnZmc zl3cni1gulJm8TgZaNJMzaq AgjHntAOD2r6NyDb66J41cS HdpZHRo TIPjGYEhWCWciEeimn5noP6 wIi8+YUVacMS4uFU6cZ8oUt SaMaI2DDytM496LfCxhGSaH pxyT51n Q3AgkRB+ADOpEog5YJHgiUj cHI4gqDMfGLduJv6mNVP7Lw UxKeMnVGzwT6YnSTHkxsarj mlnaHQ6 RNSrUMYpkR79Yv5wfQljUc2 cBOGkILK2IIFubWSzE3KatW 1bWjVjCWDhODKsI0AzpOAeJ XxbM170 RLvdZvU9HCItisCrW6RyZPJ oaXizVwL6b7W8Ld1NtGcgbT ViDK4bXpJqLWo8E9CcKzg5I CBzdHls HN1qhTToBDteDd0nrZkpjEt eWD3nXMLjnvaji322FmMzi8 yoLIEagIFpDNqbYIK8Q99hp 1A4QJWk YVAzFNM0kMG2lX0jxZbieqb gbGVmdDsgdmVydGljYWwtYW rfD421LAMmzWyjNqLVNqv4B 0RxVgv5 POKkrNcwIT1vrANeTDroAr7 vlSwpkVmfSB2jCCOhitxie1 53BgFpg6ewFBGldNMsEXnrD IF8D88c b1S6MOJcYHIiGZF3hGS2kW8 hbGlnbjogbGVmdDsgdmVydG soZOqyLSczS032PVIkqFefV i0IOpu0 N8ObLeo1VIEwyTqtBN3xnDM qKFkmAc5ysWqjdMnvVD5hYR Zeuiljk232HjMoa7ocVZAaz HQgVGlt BHD3M61rx9V4RNIlQJBcDWZ 4aPT6iD2bvAcrbesehARjmW jbcoTxcCnlKWteYNvqE957O HRvcDsn PlBheWVyOjwvdGQ+KS01al7 1J2MvXtduGxo8ZIIaFKF3yC R8gJ8zNBLrKUfdc4W4pUW2R 2JvcmRl ci1 (more content not included)... [facility] Provider Orderson 12-29-2023 Provider Orders [id number] TIFF [facility] Progress Note - Nurseon 12-15 Progress Note - Nurse Pt [facility] accompanied by her boyfriend. Pt has had no problems with catheter since we last saw her. Pt tolerates cath exchange today well (see BRIT), and was discharged to home with boyfriend. [Electronically Signed on: 12/28/2023 11:37 EDT] George Atwood RN [Verified on: 12/28/2023 11:37 EDT] George Atwood RN [facility] Coding Summaryon 12-01-2023 Coding Summary HTMLBase 64 FltzeyerJQd1aTt+PGhlYWQ +XW4NOCBrB40kpMUtaE4pT1 NMTElOSywgQVBQTElOSyIgb hMcHZ9ttHLxJBCp IC8+PB3oXPBxBoohgZLuz0S 9qWK9E77bxw1kBYeayNZ7TC TpOlClfttfo3zqoEy5UOpsA mluOyBt SGPkhM44PNC0tI71Wq91lNH nySVrw0mxwVm2JiPsJLHoAC G2xYclDXanj6TuHZZyV00cs OFug5V3 FJUvvCftoFLhVzPyaKT6iP0 vPScjizspy8vnndhnEht0up 94zOHjr9V5xPZ4D4FicjS1S GJvbGQg TtvtsCNHqQ9dndgqs8cujla bPzHfEQFvAHh8AOk0SLBoiQ boHpWaKI65AZZ6AIWobbPgP 2FsLWFs fTvpEqS8v5N8Ps1FP0LEKqj uO8JTUBPHPHhpeAA+PC90cj 29G5VmNusdMeb6HFMhSLA9j QQ4tY8o KGAvVDkkk4R9jFB1H7YdjlZ euy7zg6seLXLwBSevT08ouN Ljj4F4RBIjmOX7QANslGduD iBzaG93 Oyc+EBXifEvao0ZxKdjex1g ex9pusLw3ZnqaWFPbapJirF kiLWE9v3UoXr3xFWEezVO4x GM9eT3p BfBgXgL7XLldG620GrArfLC rNgxfM84aU8TzuKK+PHRyPj d9NLUbrYisEJ0hG7SmRGNao mctbGVm bQdyUJ9wOVTevxirSCYwaL0 sMDRkT3f3RhXaHhY4CYqcD5 JaMKBefjbkMd59cD8pPhKrH fE3KMjp Y9VqhbN1VSHnzFDjZRniQCD 2E15ie0Y2KATyUZNcSEA7xM O9mU1wjXtqxvzrwSPpvKyiv mVydGlj PAawTQfeE168HPUcrHigFyA vZGluZyBEYXRlOiAgMDIvMT UvMjAyNDwvdGQ+RFWcXLI9a WxlPSAn kORaEGgfMf1msDemqAwnWM9 yCGApetaxBNNjfN6uISUnyG NkpBjcIP3oWGAzazdzg551T iAxMHB0 LAPbeFLgE9IqsV2fQzTfRRN zCRKwN0WsuTQfRSpdV539ES icUgX6ANSgocQgY0IkQWKzk WduOiB0 z2U2Iz5Pf6YfnvucZ4LcmAK eJkInYddtYGl2K6CuUsshaQ I+XF39TQIrTD28WWn9QCC5n WxlPSdi TWFwZ0VwuG3tBkSqAPBcHHW kOyc+PHRhYmxlIHdpZHRoPS weQBNmLjBtgJjoJO8eDv3vB GVyLWNv pLoqhVQnArMsw6lsIFCoIEz ySL1vwEleP4NzbAO0ZQVfx9 l2Nl35T72tG6CwkNB+PGNvb ZA7yKS8 kZ0tFmWwEoZ0YFjzX745JxX ipDHvHulnn5vwg6ftsHb1Qz D9QBUhkvNqnIblMQF3p6JiW q92S66m IHdpZHRoPSIxNSUiIHZhbGl wqy1iuL5qUi1+MISzgHA2aY F3iL4tKyYgCyS8RTeeB136O nRvcCIv Cncje2uvq2tvdGz3LlPmZZO ellLmmJiuETA4e7IgVl30F1 BluLsiw0FtPlp0jx55zOJdo 9Y5pKO9 U8OlKYCxwdfifGJprJolGG2 uJIHwbmcbVIFdsZ6fYWAtY0 m4TpJvFjH2HSidV0SwtmX9N GJvbGQg DJPasZSJrZ9rhfsrv0ydorf mTnPnTWKwINy7OBt6QWBogJ udIoYzLHC9UxI9KJC2hKNyy B8seLev pihxoG1jMjc+KLF8rTViwVE UST9tSxsimVK+OMPsZKF2kX avSYbwPKGqnJ3qNQHeZ4v4W iAwLjA1 NXdmQ4GnywN8JLHcgRXyVRK keFZAxX0gzgjpj1azcydyMj BwUZCsMQl3TTj9DNTbpRlfZ iBsZWZ0 NoH4HZW1gJAsjA1oqOshmdy txC3mCky+EvqrsFkvCVR5OC m0C6GwRzv0KTLwjOggNP9qw GFkZGlu Kj2ahTjctRvdHN6qYINnhqc yl365DdGsh0pyFTZpaXDiDE txJMK9N63lu7U1RJWhFKUfM BF4rJE3 gN1htTltftjvkCLslKgipjI bfFllIPnqSKzcZ526DVEomA nhRbZmSNl4V0SxNyj0CQSvv NxxII9v iVEqCHdsVt7cpEtbsGrhEQ7 yZUWpripar626MuNcp7rlKA KzkSFvEUmpORK9X98lp7Z2L CMwMDAw TIA5yGS9dL6jkCxfrhklzGI mdDsgdmVydGljYWwtYWxpZ2 09UWCstAusUvBvqZm8I2GmH ha3MVMu uMigMT1fqGSlGZcaKt0xvDk frElrWO6zKYQckihxu690Hl Dxn6ldRIJswKWrPIoxRLT0E 11nk1X0 RGJsXJXgOKY3hPM0tQ7ruSg nbjogbGVmdDsgdmVydGljYW wtYIsuK856VMRqrTzaLiZny GllbnQg EObgLOj1V4DoKsnjoFR+PC9 8TTPdXE86qETgyDJjg7qxmE u1QgDeDAEgKCD6vPezMJkvr 3JkZXIt G76arNHlz6H5VKKjtIsgnPH rCpIbwOR5oZ7vWPvegbfhb7 gimphjPjjyq3yxog56gO97M 29sIHdp ZHRoPSIzMCUiIHZhbGlnbj0 hwG3qHa1+FMFrlMM0uEM5zO 9mXXNsBaZ0FJktK434WqZln CIvPjxj q7tgs9elzWm7PrS6NPWftzQ ksOvwLLJ9x2DmQe63O68qNK dpZHRoPSIyMCUiIHZhbGlnb u1vwB0q Ii8+PPSkqDV3eWH8iY6bDaR vJyA6OUlaJ756XfWzzGCrEm ncN10yC9PfgEN+EREuMoe2X CBzdHls MO3cvPYnEQrhIe8dOVB9CcD rExEiAFtqS0NnXMWvppvddc akzMX0IMBtFOTpqA50Md9is DogMTBw cNEEcX2qkjnzi5okqpfmTtV oITGzHVw6PSc7BZPhwIjcVw CqSOO2VwK0SKM6qGPkjP4mq Glnbjog bL2mW3ArAILsxsviSy91tS7 nCdFmRlO6YIxjBrd+UkFUTE lGRiwgREFXTiBNQVJJRTwvd GQ+PHRk ZWW7oYosXCkhTOMpjC2sCQZ pY4w3RtDtLfD3RMqeT9FpWO SsavblPl07lT3yGaGuTzJ6R HduS3Fl buV0ZCNzbEHfRPbpDTK6H88 fa3T2XCWcGANvPNQ4nMP7rF 1hbGlnbjogbGVmdDsgdmVyd GljYWwt DVvzI434MUBkkMciFiMhPzD nJdU4MOc1T3AhHrd9IWIiaI xtOR1kiJIjIUyfPr1mjYdgw CeyEY5p IGPwpzhbWLVecE9zDQJxtAZ uzDbdIQ4aCNPprqkbj040Ay MzXOU5LCCjfCLyH4XunU2iV iAjMDAw FDCaR2GatFGrXPlbZ012FRt oZoY6WJIsqvMmH6IeIKAwvV qbTcF5s7G7Op7lDhZGTJXsw zwvdGQ+ RBSyMQP3qJhqNXcqQLHziT2 vABDnH0o5WeJwInK7ZYkxG5 FxLMSapdvxSk93yC6wMaMsI yH6HYfx F2HmxsN4GBZouUOwZWqqRMV 4U02qz3K0OBZqXOGmOHY2sZ E0aN3rgIxilrttoHLskVoyk mVydGlj DHklZSngH997RVXrkYwxJxJ FTUFMRTwvdGQ+WBNaTXT5uN xtAEueZQTeeX8mOTJqK7v8J iAwLjA1 GLsjG5LiVFYqtdmlEg61xP9 hZqUvUvL9WQmmR5DnriD9UJ JbkBRlTVgeEUD6B83js6F5H CMwMDAw KMI5rNW6fR8gkVobagnkbPH mdDsgdmVydGljYWwtYWxpZ2 46IHRvcDsnPkRheSBTdXJnZ KZ8YF98 AV86L1LvFygshLBvpFH+PHR hYmxlIHdpZHRoPScxMDAlJy KgnDakSZ7zYn0lROBrYXUmd GxhcHNl KhLdh2guKZEkEWhwTX5uhOq rO4GtcPG8UXWus0v7Gg41O3 2oT8UmpQX+WJPixFY1oFA9e C5eTrUm XqC5ABwoT569ArEggTUcNbw lj5qdz3iyxUc7WfBvCSOymn HrrPnjYXI4v1FaLf41J11oD HdpZHRo MJDvSHVkBBFnoTvkzj9prD1 wIi8+OPZabAC1wCJ5jG6gPf RjXwM9QRpkY748YhXplWLmW qrnT65b S2XziTC+ANAoCzx1RRLxiYf oNW4btCHyMKrkGq3fSZH3Cd WeNhBxJWnoY9CoTSVdapdpu mlnaHQ6 AUQpKJUdtL29Wz8cnMaeHm5 pAZKvKAB5BDItpAGmH5NhhO 1qUvSwISPtCHKrL0JdfPYyD VavU658 HYwxRbB0BXYuwySmU2TrXUN kfYumJcM5e4R8Zm7PpCcscN DeJO9jQkRwLUc5I3JtWbx8T CBzdHls XT9kzXJtYKfiXg3wcOwymPh oEO7jSLIcrdilx627JnNcy6 uxNEQruTCgQPekMTA3G14ny 7Z1MISs EYZdJGY3vQB2uO1dzLjhnke gbGVmdDsgdmVydGljYWwtYW poR426JCWdkHnnSoRLIzz1L 6NmYnp1 DQRfjPpeYN0umNPzHKtuJa5 vqJcgdJujQZ5qUDWdjogky1 00NoHlk3xqOWHysCNuOUbwD PQ2A43i e0N6ZMTlYHPsDVE4uJL8aM2 hbGlnbjogbGVmdDsgdmVydG cfIDkaWPjlJ579CZEboCeqN n9IZwr2 Z8LtMxt9BEIbqWzbKD9yxON hOWadAy2slZoezFvoDY9zQB Usjwntq139UvQfd6qlDQAdu HQgVGlt BEH8E52ys7I3CPPyDVKsJSL 0bPL3xT3qdRylcvegjXRguD dwmgXbrErsPWoeFGikE592P HRvcDsn PlBheWVyOjwvdGQ+OP41zj7 7A6LzWaqpAjk3ISJfTQC3lX Y4vK6ySBRvGSgsz0L2vZJ1C 2JvcmRl ci1 (more content not included)... [facility] Provider Orderson 02-15-2024 Provider Orders [id number] GTIFF [facility] Coding Summaryon 11-03-2023 Coding Summary HTMLBase 64 RwsomdblKQc6hVp+PGhlYWQ +JF6KNJRbZ03nbPCyuQ3wR4 NMTElOSywgQVBQTElOSyIgb sHfAC9lqLFiPNSu IC8+YB6uYKZwHcmaeXNvz1X 7gEV1Q89tng8dWFmztHZ8PB XrCqKgklyno1qpvFr3VEpgN mluOyBt PSOnhX97RJN3hX14Be22tIM xjEUch0nstIe0CsFqLSGtHB W8tJucOIidt5FtLQZwM65vv QRyv6B9 RXMglJkhyCCfBnQrfTG9rY1 jUZybphnot9yxepgpKxg2ax 83sUFqs1J0ePT0S2LqnpR4T GJvbGQg HcyfcBRIfK6jilrkh3clfrp uHrJtTXLwXRe6UTl4KZDboJ yeFaAmPB08MRR8XYKhbtRjK 2FsLWFs cAqzMeE7o7K6Np2YZ8SYMts fZ2QTYSMCMGccrXC+PC90cj 57Y3GdXqdbMrb4BYKgNJJ6o DR4eG7k KSFvRVbam9E6kLR4B2NcsfT uhz3oo9lsZEWzTZxcJ51haC Okz7Z0ZZTsaZL6HVWvhDaoQ iBzaG93 Oyc+LQAnqKoem8HpImfkt1k pd8lejXn9TibyIPLgymDfdH odNWJ6s9EsXd2sPZOptBQ4s DD2sC2g OiCpSpZ9KTgeV105NoAbrVE aDhzuC16tU4NmrYL+PHRyPj h3YTZewGtlDG0oE4EmYSTdd mctbGVm gMvgKH3uIYVyqfdsLDXgyH7 vBEOkE0h9WcLiGvP5BSbvH3 GeMCJxeaneNk18lL5oGsBvT pW9BVhs N2NsgmR4PZZrmLCdTKoeRVO 7O08rk4L5IGFiNTBhPQF0aZ Y0wB0jvBnhbgrkeQMzfDadb mVydGlj RYvjFKjxW330OLQpzNzwKwJ vZGluZyBEYXRlOiAgMDEvMT gvMjAyNDwvdGQ+VSLfQWY4n WxlPSAn tOWfKDjdSd2toVnpfGfaSV4 aKLDkbfpmABCqkI4hGLDeoZ XhvOghUJ8fGCJqszwzp555U iAxMHB0 QUMxqVQgB7NqzO8jGoWoIHF dKGUnL3XfyDRnSIoeI390IX fiNqO6PGQnalLyM1WeXEHox WduOiB0 h9M9Nf2So6MlhsvwE5IsvBO dYkKePtbmZVj4U9KeHmqtqK I+LD73QIEsFE58TVe5JUU9z WxlPSdi TPAqX2QqeR9aEpMgUISmNVN kOyc+PHRhYmxlIHdpZHRoPS wqWBYeXrOeiOwkRT7jCl0nF GVyLWNv qPqnbRHmReJkj4plEQRwGKc cIV3liJotN9NgcDB5ABBjo4 q4Se76M57iY2WzvMQ+PGNvb PK1eAF2 kA4cQbGfJaX3NRbvO345HkC vtFWyPvjoz7fyw8bwgKh8Xa H3VODagrKomSjbCUA2n6LpF o91E07s IHdpZHRoPSIxNSUiIHZhbGl tvh7rcN9lYz6+YMJmyNM2wI Z9tQ3nJgTnIaW9SYvfA949M nRvcCIv Oupdb3vpc1dtdYo2FpXtNMS wohUhcQkuJIT6c6MsEh09L8 FgcCjbl6ZnCzm0oj11dRZtv 2H7rSY6 B3IaUZGxivflhLZmcVjaQZ4 oSPOquxmxKRWseK0bRJRzV3 s0VcDtRyD6AZynW3GrfmQ2F GJvbGQg YKIatRFRpG2sdtwqt2jngwo lNsAnLXPpNEl5WAv6YOMxzM vpWrKpAXF0EtA5IFO3aTVpa K6gkMaf gcqylP2xFcu+SLN6lLZwnGQ THX2zKdzfrBO+KOEkAZI1rU vhXCsaEIEhjH6uRRLoR2o2U iAwLjA1 FOrmO2EhpkP5UHOhwVPdRRZ hlNROgW9dofzjq8pqkquwUq ObUXMmLIf4CCy9UNDfiCskJ iBsZWZ0 OmV7KWU9qUEksW7gnIrwcmx faH3sYdj+YksxvLgmPUW8PD u8U0AtQsv1RXVluRbvNN5vk GFkZGlu Sg1seHzasEfeXG1dSGXwezl dj218EbXta3vtUQOlaZIzLX ipZCS4B89pt6K3MSQzPQKvY XR2mCU6 sQ5qhTluqfplqUJphZrxrvP urQwhGWgiHKceJ767DDFtzN ndVbOyDYp5O5VqErz8KKBdo ZfsFL0e mGWvYRibZw5zmSjioZgzDS8 mQEHrbvcvm759YfLpp6qtXW QwxNTbPSdcJMS0A58mu1O2I CMwMDAw EHC6aFD8pK4dwHfzxqamqFG mdDsgdmVydGljYWwtYWxpZ2 96GVGhzJtkXeDnvGl6A8OeI kn4OHUm cGlgRY5dvXWwCLblZn1fcKb hkXepFK1bIYNzfiibz084Wm Pnr9buVRIegDKgYXyvAPA2V 24dn5K3 FJOfLBCvBOQ6vBA8dL1fpPn nbjogbGVmdDsgdmVydGljYW kwUPkoI277TNZmfFnkQjRfw GllbnQg QBhjNHx2M5IjNpvgyGX+PC9 7EEPpDQ44qWHzuQQwz2mhgL e5EiVfRQMlVQQ3uVeyQSmey 3JkZXIt J71ukHKpk6C3EVSwrHzltEJ aScXkeRP8dS0jUBdonwjkh8 bmblakVwkxm8mocx32aL32J 29sIHdp ZHRoPSIzMCUiIHZhbGlnbj0 ziL1cEt4+RPQgeCI8aRZ9qP 3sHIBdPxB6KNgrC511OeBcj CIvPjxj b0jas8vjnXo2KbT4PXGyuuH whZavTOC4h9GkDm39G63aZK dpZHRoPSIyMCUiIHZhbGlnb p8fyK5d Ii8+JIGutSG5iHT0oF4yGmG vRcI3ZZyyC920PoHggZDpMd kfL41eH6VbfWH+ITZhVxm1D CBzdHls MW3vxEAlQYhaPz2wJXB1NdG rPwUtFWmeZ4NcFTKobfzqri jsfNI7OKJgNUYzfB62Bl6hm DogMTBw oCEAsD4fspqzw2fsdfqmHjM zYLFyCJo7PJz8KIXuaGgoXw LrLCJ9CnE6QQV4tJFtqV9jx Glnbjog qB2iX7UsRORgtmylVl43sX4 kTnTwIiO9CJviHcb+UkFUTE lGRiwgREFXTiBNQVJJRTwvd GQ+PHRk ETF6xIkrXBhhFLAkoR8vOTO eN4q9JhWzTzX5YEhhI6KlTM HegowbPq46dQ2xEhWzWoN1B FhyK4Ts bqR7VKLpoSBuBNvmAGT4B42 mg0L8NCZuSGEsIUU2zAO1eQ 1hbGlnbjogbGVmdDsgdmVyd GljYWwt LCdjK087KDSblHfzFwGlNxO lCjH8IMl6N2AyThr0BRMgoW xoEA6xkOKzCInnRs8pxHfns RurAK4d POIbzxzcEDXalO9nZJOnkZG ykBzcZQ8zCDGajbyft386Fg EjJVX7NSEjbVWeP8YkdC1hX iAjMDAw QRDkQ6AwkGRkIDblF457IWj mXxU9MTCjhhCwL6PjCVTkrP vvXxF1q1J1Sr7xVcQZNJXvw zwvdGQ+ TYJmHBD4nEyyVEbvQPNnlP3 gTRAsK9s3JzRiYzB7ZFwxR7 ZpYQXgkewnMm23eA1fHlJyW eX0XOsn B3PjqmC7FRBarZTvPIquMQH 3A37jo7U9BOJhIWQyYUO2uY V3sP5udMpabzqsuAPzlHnjy mVydGlj EGehYWggP818RSAqnGycSeF FTUFMRTwvdGQ+OKTtAYZ1zK tzXTrzKTChkN1yTPRpE5m6V iAwLjA1 VLmrT6UsIUYvlhuoZi95dY6 xDbVhUyP6KWrgV1RebyX3SX UmvDYqFLodMWQ0L14cq1E3V CMwMDAw GUW2lYX8gN6rrJmbqjicpOU mdDsgdmVydGljYWwtYWxpZ2 46IHRvcDsnPkRheSBTdXJnZ WF9US33 PD49O2IgZzzikYQbbYQ+PHR hYmxlIHdpZHRoPScxMDAlJy FbfKvlIJ3wSe2cLETcVMSbs GxhcHNl PdJwl0usKYNnDGjtWC8otQw wI3FunUO3AWKrz8f1Cg80J9 6iV6EbeFD+YFXxnXC2aPJ3h K3jMaUk NcL2VWtxX395PbQqoAIzQjx ey2qyl8bvgWx5LmPcYPQspl VsgYnqHUN9x8RpQd61P01oE HdpZHRo OZLmQDNcRAEkbMcill9uuC3 wIi8+KTAaxVY8iGF2yZ6vZl TtUlR4XJruX284PtMosOKjC pdwG63h K6DjjKF+GNIfSfr8QWGlrOg cFX5ofIEmZYgnTc4hFKJ1Km GhVuTiNVolH5ZxJRFhdgnmf mlnaHQ6 CDMiPIBxdH56Gb2ziNauUd3 oUADsVQW3UFUcpVIoC0CgjY 8dBbFhAENlECJtQ3QlaQNlA TlrZ973 LXesGnX0PZXvzuMyT5JiVGK kzPvrFiR5p3F0El2OtXnhpH UvWU2hBgPbSEg1A1FbGkc9W CBzdHls KO0fwVIdWZuxTb6znAjsvYj jFG7eKBIrkswor329WwWta4 ztQQObcLYcQIazXCR5Q19ig 1Q0MRKg HBIoGDU9pNG9qR9kdLfpmwf gbGVmdDsgdmVydGljYWwtYW tnN818LEMfmGgfKkMWNqe6K 7YfYeo3 EDRskQxbOB5wpDKiIJiqIp8 itUsjxRinFT1jNXNvxlirq1 34SpRof7ktGITgdYTmOFzlH IB7G75k v3J7GEVyKTTePZL5xDH6sT5 hbGlnbjogbGVmdDsgdmVydG mzOEjlQVdnS281UQDitJolY k1LKme5 R9WvDva1XERtbJpzIO1ccLU iTRxlSr2vlTzccYtgJR6nTV Zhstaag569SgOxk8teTUGke HQgVGlt KQP7B35ir2N5FTXhYSMeLZG 5kGE1wZ9fjMmktitpkOQbqU txciIbdItnCRohUZezD427Y HRvcDsn PlBheWVyOjwvdGQ+WS19kf8 5I4DmWumuCpz9RLOsFXS4gA R4mI6vLVBbBBghj6P8iDJ8G 2JvcmRl ci1 (more content not included)... [facility] Provider Orderson 11-03-2023 Provider Orders [id number]#1.00OT GTIFF [facility] Progress Note - Nurseon 10-17 Progress Note - Nurse Pt arrives to [facility] via w/c with sig other and transfer independently to be via slide board. Pt assisted into supine position and existing alfonso catheter d/c'd per protocol without complication. New alfonso catheter inserted per protocol without complication. Pt transferred self back into w/c via slide board and off [facility] with sig. other. [Electronically Signed on: 11/02/2023 12:31 EST] Leora Malone RN [Verified on: 11/02/2023 12:31 EST] Leora Malone RN [facility] Coding Summaryon 10-06-2023 Coding Summary HTMLBase 64 AvtfmesbUPk4jZo+PGhlYWQ +RJ4GJGHyI26dcSLdlU5xH6 NMTElOSywgQVBQTElOSyIgb rMnSA3afBBcJYPl IC8+QW0jXJQmUygwvDXgw9A 3gXM7Z06ped3rRRqokOF9EQ XdPiPzaggsb0bztCi4OIkhF mluOyBt MWGvnO85WET5hW71Zs38dDS sfPWqa8wreXo1UqHeLQIgWC U8wJxwXRpiz0HiSDPpI10tm FAej8I9 SPPudFvcwHDmCzDmwJH2eK2 dALvwlxnow8dfwcekJep6sa 11vRCdw5I4rQN3K6BnlzV7V GJvbGQg PcqliPYLqE2xbvqty5ylysx fYbQgFFAqWIl1ZRc8AXQevM blMmPeXM64DNZ7FDThfhNwQ 2FsLWFs iLhcQhE7e8X5Pv9GF0FCEjx oJ8VGTRYGPJmukYZ+PC90cj 12H0SnQcsiRbf5QMKfLZY5q QW6zZ8c HANmJKpfw1P9qSZ9V0RscdZ iii1lw3abWRGjHKaaS62qjO Xri9B9LRMekTV6HADtgVmdU iBzaG93 Oyc+BLRngRohz5LfHcrgh7f il2luqJz7PnvvSBIbymYlvX gfXDG2w9HlQh8hAUAifOQ2d GS1oT5g PjLuEmZ6NOulR118UrGetZZ rLvapN43gL2VqjMD+PHRyPj c9PXHnpOpcEM4rG1KhYXUjd mctbGVm gIthSJ9qEXOzkdtfZOItgK7 bBEEiL4i9TeYiElE7OYjyL2 BzYMSchlqmWu62rG5uGhAuN bW7CEbt P4EjmeF0VRJeaHXtPVvvDOH 2U70bk8K9ZRSjAWBcTBB2tO T3fL8gsLbshvgifKXspInkj mVydGlj TYhfQYzeB627VMKpdPnfKpD vZGluZyBEYXRlOiAgMTIvMj EvMjAyMzwvdGQ+DSUjBNX3i WxlPSAn fVLcFLwnIa2vjCoufQtgDN0 dPJBwsyonEFTxqB1mORSpwD GndRftIW2lPGQtfberd309O iAxMHB0 DXKopVXrJ3WvyN9kMmXiTID bIAHzT9YamQUkKNmjJ436CA xzWxH1MWQytlAeL8EmQXFfm WduOiB0 t5C7Tl5Pv4TqrofeY9EyjNM qGmHdResoPHu2O4OnMeqzoX I+TI20DOTbRE13ACn9SDQ6e WxlPSdi AXDoC5HmfS4rJiSbCREkVUF kOyc+PHRhYmxlIHdpZHRoPS hqFWMiNjLxgAreBF6jNu8nM GVyLWNv dGzctXRcAgKub8idBHIuRXz zPL1vhUdkY8MokRT2DTLrr0 z4Eg75Q33nB0EilGW+PGNvb JE7dAH0 vF1zAkWoZwP2HPgoR051DqC xeJHdUxddy4jsl8tytLm9Cg W2PGEhamArrQhiZEJ7v3EfO e96G84x IHdpZHRoPSIxNSUiIHZhbGl erl4ztJ6hEi5+XVEyzAR4yF M1oV1wArBgWaC6ZRulI081A nRvcCIv Ineic4lzx8xkgGi4QpBqOVT rwhSzcWxdCVD2i9DrTd73N8 NfxNwlr4HaBzr5vn71oXRff 3L8dDW3 X4SbKZFnmrbfeRJunIijXH7 qYRCfdriaKULelK0dUJDtF2 f5UgYrVuT4KDqdD6PqbmT9X GJvbGQg CYQzwWKWzA6miymjc2njslk zGiIdSFNjWCx0EJh2ILThoU tyTsPiLPX8MdU2QQQ6cTZsb M6yrBna dikmnW2aQgy+YTM2pLHiaDP EJP4sDxgunCQ+VCBoWDY6nN aeGRuyDRGzhM0fEXSwI4z9A iAwLjA1 SDdkX8JnrcW9GROcaWHoGWI zqOWHkQ3weervc6sjcvpmAb NpHNVhUSs4XFe2NDQnaKmrK iBsZWZ0 VrI9ESN1uGSydA3gpJiwyfl wdB0oIjh+UqjrkEizXJG0LY v4D3VsVpi3CSQxzZipUW8kz GFkZGlu Jd1tzJirlHqtFC6zLFKtcbg kq135EvRht4xzKMUwnUIrRE ioTZS6W99xm4F1RUShVUSoL DO5dYW7 aI9wiXosfcjktNKuiDidllN reStzSJzsRClzJ285UJZzrQ jsXqDxWVh9C0FnQqd1TQZoy NgbVX4k gIEtUNrpBb2ikKccgNovEO0 mKNAuwxvfc382LyIbw8emZL UcxCJjMAwlUFG3G87yy8P9E CMwMDAw DPG1lNW7uR4nkSxqsgzmwKP mdDsgdmVydGljYWwtYWxpZ2 62KMFnbPnhFwSxdTz7N9OuT ty6HBYb xFdkZN1wkIQsRGpcYo0lnPq jcVydOW5wIBRbzafhp436Fo Eep7jyZYMdhRFyMNuuXID3L 79kp7Q6 BBGgLKYpYUZ1iUN3gU0kqSu nbjogbGVmdDsgdmVydGljYW rkSGsdB734RXPhzUqfTlSgw GllbnQg QGrbIOz2R2WiTonhwGD+PC9 1GJNyBH53cXNowOFtc6ibtN u1KvJoKSZsBJK3rMrzWIwxb 3JkZXIt L31gvGGip0E3CIQafOejhOC gJaKnrOQ7jA2qSXqmjcpag6 gzckwgDwchb2lrta92kZ19O 29sIHdp ZHRoPSIzMCUiIHZhbGlnbj0 lmU8gXj1+EHUkcZN7kBO2sE 6tKYXkAqS2GZipM878LxWzy CIvPjxj j2asb0qewNe5RlS7AOCxecT qhWqlWYF4w8UiCa25N21tNE dpZHRoPSIyMCUiIHZhbGlnb h7tjU5h Ii8+ZRDusYW9eXK4wG7kGiW gGeB1KHjsJ497LiXmqPUjEl nrT54dV3UpiYU+ICWdIny5Q CBzdHls MG2emPHbHOymSe1hOLF7AcH dQmVcYSjkK5OtGYLhivoqym khfMQ1PZCzERUvrZ80Rg4ud DogMTBw rGAYlI5homqkv8ibuompDiD oTOEqDDn6IPw7XCFqhKcxSw DsVLO4AsB4KNK1zTMxkB1ml Glnbjog zH2rR2DuIWAtlqknXv38dN3 dVtNnCuZ7DYazCxx+UkFUTE lGRiwgREFXTiBNQVJJRTwvd GQ+PHRk QWN5eVoaNZnhJWPlfR4xXQK yP9e9FaCyHnK9PNqbS1YfCA EcsqkoGx17cZ6vZwYqVwF6F DmdZ7Vc moX5RGBheBZpPDtgFWB5I65 qp5L3QFAvCIYcJBX8aOQ1sJ 1hbGlnbjogbGVmdDsgdmVyd GljYWwt HOwcY113WLYypIeeFoWiQgI fRxP4XHf2K2GfXee6BHFpvL ikUM9jtDYnLAyuQc3bwMlyn MxsDG3k CVIodjcmGPXrrK5rIQMytCQ hmTeoPE2yAQRtonyts247Uf QdVZO6CQExrMNaM8BieM5eE iAjMDAw KVPqG1WaxUBcIVtiS357MEo vKtF9OEWtaiAnW8NbDXEcwS ujDeL3y3V0Et0fCqWMCXImv zwvdGQ+ RBLbWBT3zNnyWIurYRVnzI1 wLRNuB9b8ZzEcJyL4PRgiQ8 MhYWLbxkxrQs60tO6yRkZnD jH8XWlc Q7RunoM2TVNxjZZxEYlkWSF 9J36og6K6VHNgLBPuLFT0mS H4tC9pjBuoujuevJYatSpoy mVydGlj VUqaHXfbJ869MLCyuBfbAhC FTUFMRTwvdGQ+PROkRUQ4lU pwUYanSACldO3lKYJhM9v1R iAwLjA1 OPkfP0KqUGSvfmkiJb37wG5 gXzOjWbA7MXqlK3HeedO4KK KrxNUgZGjqXGZ0H92ju7W7H CMwMDAw IKL7pVJ7lM7mzSfttpottCQ mdDsgdmVydGljYWwtYWxpZ2 46IHRvcDsnPkRheSBTdXJnZ UD9HY09 MQ03H3ObGmjdqHGuiWX+PHR hYmxlIHdpZHRoPScxMDAlJy IfcAbbFF1rMn9bRCYeCAVia GxhcHNl HsUdn5gcBMMdHGouUT1zvOn oC5EgfZR7ATQza8s5Zy74A8 4qW4ItzHL+MFQhxLR6dXD8k Z6aNmDo DvI2ALopD855UcQzhBRtGrn we5pgm9xlwXl9OxJxOKUqaj NroMgkZYL6p6RbQy77W62vT HdpZHRo DKLoUZZgZJFntVcrec8dlD6 wIi8+RGDoiNW3dWI3rR5dCz NjJuP4OBwmF183TtSitJNiC deiN31u D2ZxtMA+LKSqIuv6LQCxsTp lPT5ytFOvPVcgEn3nDDG4Fx HtGqKcXQcyF7OpDDPnamzct mlnaHQ6 TMAkBZBbtO77Um8vhMniUt2 tOPFiICA5ZDYinZExM9YcgF 2bGfMyTSOxPZYoM2ClbCVbH YyxR101 JOvkOjT2ENLuvzOuP8UqWOZ wmRxlOoD3l0G4Rz9HwCrqpB IlZD6oSaJeQYw1T9BcKao6I CBzdHls XT0bvJGyQPdtYu6ykIyqjIo wMS6kWVZgdnlxu947FrAfv3 xeUPKnvAXrIPyjYEK7B39ff 0U9BFAc EDXdVKN5rZK8sW7lbPgmsbe gbGVmdDsgdmVydGljYWwtYW jaG459FRNntUgpXhWFGhb9P 4ShYaa6 NNTwmFddNJ1pvUMmTKnmPz0 jlWwgkLcgSI3eLZTulouky0 26YiApm1ewZTDvyUTwAHwpY GY4E54o f5L4GAYvQWVkLZB7pHL9xB1 hbGlnbjogbGVmdDsgdmVydG ftMJqhMRhmX443GZQzhKyeY y8YPir0 O6YgSde0MAPuhElbAT5evOY bXVghOl3vfCyqoZbqSA6bNM Zydjxws415XbFvc3gbHDBqz HQgVGlt QUX9W22kc4J7ZMMxPUXnQWZ 2oWP0uP2nqXnksatdgJGevP ngilRriBeiUUksGVxwQ270S HRvcDsn PlBheWVyOjwvdGQ+JC21xy5 7Y2XzLlzzDor3XECjZAU5aG D5tC6sXCJuQIfab3X3yQO4Y 2JvcmRl ci1 (more content not included)... [facility] Provider Orderson 10-06-2023 Provider Orders [id number]#1.00O TGTIFF [facility] Coding Summaryon 09-27-2023 Coding Summary HTMLBase 64 HymqsoskBLv9xFz+PGhlYWQ +GQ1CNBAoX48ltBJdyT2iC1 NMTElOSywgQVBQTElOSyIgb lDgDL3bzBIhSECe IC8+HL7cRXFkXfzdrODxz5N 5vTP2M28lne6jLElcwWU2MG FeBnMysuitd0vgzWc4RHoxC mluOyBt ZYHipK47CLV3lI07Ol14oMK phNNba9bxwGf7YtJqKYWwOW L3tYjfZRcoa7HfDLTiO35uj XWdn8H1 QASufAuhnTNeMwYkpTE4vN4 gUPxjwobcn0thbjcrBbq1zi 33oXEbh6D7jQU4Y0HrouL4A GJvbGQg JfbyaLQZnO5lutenk9smrla kZxXiNPKoIGv0GYn4PJTfjB vsSyHrAN14JDY1QRSkoyDvB 2FsLWFs gYtwRrB3g1I8Yp2IG6CMNrl zE1LXXHZOVUyndPA+PC90cj 76Q3HeGoxnXys6XCOsEJP2l EH0lG1b LNZqAAwlf3W1vXC4P6YfayX icb7gg0baQNKsPNprA99dkM Xbr2I6JEMbuIJ0YDPboUwmS iBzaG93 Oyc+ZYXrdFcfg8WtJzpze7h hr6vucPu1DfkhPNOvxvMujG gtMFL3c0TgVo1fIZEwfEM7w TC3eH2z McBeQgX5TBdjC345AxWszLA iYgvuD59fS7YydEM+PHRyPj y9IBLoiAvqXI9hK3PbNRUja mctbGVm dRwlKW1mNTQgihmxEXKdsB5 bCEFrZ2j8XdLqYwW5KRemT0 UtRZXzlpygHq04nE2vDdNbX mL3JWba J3QbnvE2OKTqeDLaXZvmFSM 5R11hs0B7GJRnXYLzMIH5lN R6hI1fjKkdlxyudAEuoWuar mVydGlj ANcsBMujO778MCCzaYfqCsX vZGluZyBEYXRlOiAgMTIvMT IvMjAyMzwvdGQ+ITYdQCY6f WxlPSAn xYUgOUduAr6imTjvvExkMB0 hZDZjipdoDGTyaA4qVFBxtV WiqLhfFZ1oRMNtnpvbk155E iAxMHB0 PIWrlGKsH9LxgC3gPeEnKXA eSWKsI8CgaZNmIIkzL375AD lsAuB2GPTekeXkK3QwYNPsk WduOiB0 w5S8Dm4Io6HnryscH7DpgCW bRsGwShhdFNk8X0UmKgnowG I+US26NCJbGB01YZh3MPO0n WxlPSdi OEPiW5GadV3tNvFjJQWfPEF kOyc+PHRhYmxlIHdpZHRoPS enHNXlKuPulZzoLS3gCi2sQ GVyLWNv dEgwnDFiVfWbs8nbOASyAFf kDJ0wxWmuN4EliIR5LRSqz6 j2Ac74A91kN8XavZK+PGNvb GK1rKP1 hL0uNnXiGhO6ZToaH329EsI ioMKbXyxfg1qdr8pdfLs5Ve E9SAQabyMaaGufJZM8w4IdC p34W10d IHdpZHRoPSIxNSUiIHZhbGl uha1pcX3uOl9+NLZgsSX7sI D9xF6aXpPbZyW2ASpyA431B nRvcCIv Buxvk6nnw1eymDc5SbRgTJC gjyBrfKwhMHM1h8PyPv72K9 WbkXwzi2AoTjx7gu06uUGcp 4R9hFV6 P2LvGFJtgmsnfNKqySpoJP3 kSIPsbuijJTRlgP4kJJGxG3 m8HhWrYzG3DDzqJ2QqehW5I GJvbGQg ULZbxKVJdR9auppru2ibcjj aIeJlPWReBQd8JAf2THDhpD naPmFbRZO0UrH9YIT2oKBta A3kwNvp eewmjH3cVaw+GTW9qPRybPS UTB1aCmxywOE+EQMkERS4bM njSCopZNDieJ8pHIAzP9r5Y iAwLjA1 CKiuD0WvhuD6WZYjuXLtFSC gbCPObZ4arwvyl8chrlhlDl MlHDIgOOd1ETq5IUQotCvmE iBsZWZ0 CcT9SNW2lPSwhI1qfSwhsfg zoD9hBpv+FsupeSglYJJ9HN l4B3IbUpk6WMOirZrkEI6wd GFkZGlu Xs4ftFvpmKbySD1xBERqewu my999PrQzw2nbXOJikDPlEV fgHCQ6T87rc6V8PYMcXIArC XG5kWC0 tZ5mvKlbfrhulNSayYryaeU yjTjcLLpmBNzdJ293KWMuxR kgUeRfLJv2E6YuJip7RRGsx MfnQL7v jIAgCSwpAa6ilDdtaNzsZV1 xUJCzsvyzx249VdQpe0wbNB AdfMMpYXsdNAF7U22la2N2X CMwMDAw TTK8kWO2bC1baAgxojecpWD mdDsgdmVydGljYWwtYWxpZ2 68UINglIerSnIixUp1T7GuL vh8KDTi xEqbKK6uwZFuJCfvAy0wvDn rwOenWZ1kNQKmyjnyi094Va Vvn9xsZTKhcBTvKCtiZED8N 56px0J1 QATxKFQqAED3kEM5dZ7aeMo nbjogbGVmdDsgdmVydGljYW vwCLqjS162ZJPrhUayQhMrd GllbnQg TEekEAb8G6NkIqvpxEO+PC9 7KIZyLO11jZGbhLKpn0clgV g6GvYrRYNnMYI0sWogUHpfg 3JkZXIt F14lkMNbv0H6AYHfvUkltPS pMwAtcCT2bU8kNFsykfbcn9 nkhervSlhea7qmgo07hS27A 29sIHdp ZHRoPSIzMCUiIHZhbGlnbj0 pdF7gQu2+ZJWlwQD3uVV5rV 0cZDGkLoB4PTjvC387KwWqf CIvPjxj o1ems1dfeDp5BzE8WGJmjvK ilUjuDHY5l9LdUm58H76sNN dpZHRoPSIyMCUiIHZhbGlnb w2soP0i Ii8+KBXreYC0aBU0jY0mWaO oOrK8ESejZ780AwFbaJFbMl sgU46nZ0GomLD+HBNoUtc7O CBzdHls EL0ndAWwKPrbGr4fJTL6EcQ lJsKtRSvqF5UuVMQxbqnvrb wluRV3VIDaSEFqzH41Yp0ze DogMTBw yCABdE2ynpyzx8hjeyriRmQ fXFSuEJa0WQr6AZLhyBepQx LzAVU2YzJ8BJR0iHCnkF4hc Glnbjog pR2lH4TvDTXbbiwtNn13wG2 wGxXlSxN9UOxeIdb+UkFUTE lGRiwgREFXTiBNQVJJRTwvd GQ+PHRk ODZ9dGwzBWbcVLSdlY5lKJP oQ3u9JzMqIcU7OUuqP5TdPP YzsznjXg16kA3nYyAqYiZ4K GqsK2Mo ppP4EFYneEQiUYmkCZJ7X38 qq0H4XTOoWBUqUVB2qVV7yL 1hbGlnbjogbGVmdDsgdmVyd GljYWwt TFkvD879OHByfBwdNlTsZrF kRpX8LUk1P4NmXgc5RVJsyW stUY5hiUIkYAonUw2ifLyfx UvfNY6t RJEseqexWKTtiT4hDQSfzVO mtEpyWQ7dZIMbjsdpf852Dh MtDPS0GVTmrVOtA4ZrwG4qC iAjMDAw EOFlE7JrjTQzUSbyF845GDq aJrS8KWZradKuU8DwYORjxL xsOiF5w1W7Fp2dUqHERCSdh zwvdGQ+ AKChJQR5tJroYTnaPCWaiU9 yWJLqS7d2PpKiKaS9LYhqL7 OqFRGgjkqiGw20tY1eEyDoN yH4GHfu N2YlgiO8JAAlhBThSBjtCKQ 0L04oe1L7IMIzWYAkXUA7vG M5mY1ebXfnjhlilAUpwSqwo mVydGlj QVttSDwxO015QUIklKmlCnJ FTUFMRTwvdGQ+LUFdNPF2sL vzCLkoAMShoM9vEWOeT1p1P iAwLjA1 ZHsxE3WrJXErpcybDd29nQ7 pCpWdChV1GYifN3HotpQ7YK VznQMgSTnwKAB7G42ln8H7V CMwMDAw CUH3gAG8yY4hvDxsvebwbLD mdDsgdmVydGljYWwtYWxpZ2 46IHRvcDsnPkRheSBTdXJnZ DA5CQ14 PF06Z1IzDteweIKdyCD+PHR hYmxlIHdpZHRoPScxMDAlJy PbaNkqDS9jEl1vBMSgZMCua GxhcHNl NnSei4blCDMrPEyvFN8glBv cZ6QbiGI4LDBap6q5Dx16A7 4lX3UgmVQ+OSOahEH0nDW1i K4kRkGi OpI3QIslO614DvVjmUWlCxd xc7jyv6lsxXe5OmPoTRBvic FdvHrwTGM6l8HlNx74X48fX HdpZHRo SKKkDBJlVYLahJyqjf6imF1 wIi8+GWKlhLX0rYP1zI0mKc JeWcA4KJbkO910ZfXqvWTiX udoC99s T5RctYL+ASWjCyt5AHHwiAj qWF4zeUOaNIpnIt8iMMZ6Hs HeFfZaWIxjC9PxKHZfvtujk mlnaHQ6 NSVaCRUvxH09Qm9rtXucRf6 pPOBnBPE3MDYnqFNvS8LajD 4hZaWpGPUmYUPsU2BjwYUwE UfbX383 WKtwEgC4OPAsydVmC0JxJMG mkEqyFgB6c3K4Hc4NrJcdjK JdAT1dWjScBKh0O6UyXlr1W CBzdHls OS6deMJnDPxsTe6wcZvxbQh yHM1eCEEzpijoe439ScTda5 zbMGCkbHHbACwgYHL5L09nb 7M7DJTs CBYkYTE9vAU1hT9khQlxtfm gbGVmdDsgdmVydGljYWwtYW tmM246NHYhbQlzDqCHTaq9W 9TtMkb0 GVDikIcsIK3cyOJnAYjaEk2 izIqkgCqhPF3qQRSxmiitl5 75DyNkn4wnVMXwoNJwQWdsQ TF7B36u k0G2JJJvEMMdNPL7nHC0pL6 hbGlnbjogbGVmdDsgdmVydG cuZBysNJhgY968FANglVsaR f8NIau1 A2AvTvn5ODYsnFexZJ8peCK oUVfrQu9riUsfgSofVC7jRC Uhsrddm748OvQsp4rmNUBsr HQgVGlt YGJ7R26gs9N5YLJmPEYxMMO 9qBG5nB4jbEshfmmsoXDiiM mlgkHjyPevHUuxNOoiE862V HRvcDsn PlBheWVyOjwvdGQ+OY27sw3 2J9ZyQllqWsa6ZVUhBZW1sZ K1bZ8oXTUnRWwte8C1gQL2F 2JvcmRl ci1 (more content not included)... [facility] Provider [place] 09-12-2023 Provider Orders [id number] TGTIFF [facility] Provider [place] 09-09-2023 Provider Orders [id number] IFF [facility] Progress Note - Nurseon 08-18 Progress Note - Nurse Patient arrived via W/C for scheduled monthly catheter change. Pt arrived with significant other. Alfonso exchanged without difficulty. Pt assisted to cart. Pt brought own supplies except for urinary drainage bag. See IV for further noting. [Electronically Signed on: 09/07/2023 08:56 EST] Savita Oro RN [Verified on: 09/07/2023 08:56 EST] Savita Oro RN [facility] CBC AUTO DIFFon 09-02-2022 BASO # 0.1 103/ul Normal 0.0-0.1 [facility] Comment on above: Performed By: #### C BC #### [facility] [address] [place] [address] Dr. Karina Montero Basophils/100 WBC (Bld) 0.9 % Normal 0.2-2.0 [facility] Comment on above: Performed By: #### C BC #### [facility] [address] [place] [address] Dr. Karina Montero EO # 0.4 103/ul Normal 0.0-0.7 [facility] Comment on above: Performed By: #### C BC #### [facility] [address] [place] [address] Dr. Karina Montero Eosinophils/100 WBC (Bld) 6.2 % Normal 0.9-7.0 [facility] Comment on above: Performed By: #### C BC #### [facility] [address] [place] [address] Dr. Karina Montero Erythrocyte distribution width (RBC) [Ratio] 14.1 % Normal 11.0-15.0 [facility] Comment on above: Performed By: #### C BC #### [facility] [address] [place] [address] Dr. Karina Montero Hematocrit (Bld) [Volume fraction] 45.7 % Normal 36.0-48.0 [facility] Comment on above: Performed By: #### C BC #### [facility] [address] [place] [address] Dr. Karina Montero Hemoglobin (Bld) [Mass/Vol] 14.9 g/dL Normal 12.0-16.0 [facility] Comment on above: Performed By: #### C BC #### [facility] [address] [place] [address] Dr. Karina Montero IG # 0.01 10e3/ul Normal 0.00-0.03 [facility] Comment on above: Performed By: #### C BC #### [facility] [address] [place] [address] Dr. Karina Montero IG % 0.2 % Normal 0.0-0.5 [facility] Comment on above: Performed By: #### C BC #### [facility] [address] [place] [address] Dr. Karina Montero LYMPH # 2.9 103/ul Normal 1.2-3.8 [facility] Comment on above: Performed By: #### C BC #### [facility] [address] [place] [address] Dr. Karina Montero Lymphocytes/100 WBC (Bld) 44.7 % Normal 20.5-60.0 [facility] Comment on above: Performed By: #### C BC #### [facility] [address] [place] [address] Dr. Karina Montero MANUAL DIFF REQ NO Normal [facility] Comment on above: Performed By: #### C BC #### [facility] [address] [place] [address] Dr. Karina Montero MCH (RBC) [Entitic mass] 29.8 pg Normal 26.7-34.0 [facility] Comment on above: Performed By: #### C BC #### [facility] [address] [place] [address] Dr. Karina Montero MCHC (RBC) [Mass/Vol] 32.6 g/dL Normal 29.9-35.2 [facility] Comment on above: Performed By: #### C BC #### [facility] [address] [place] [address] Dr. Karina Montero MCV (RBC) [Entitic vol] 91.4 fL Normal 81.0-99.0 [facility] Comment on above: Performed By: #### C BC #### [facility] [address] [place] [address] Dr. Karina Montero MONO # 0.7 103/ul Normal 0.3-0.8 [facility] Comment on above: Performed By: #### C BC #### [facility] [address] [place] [address] Dr. Karina Montero Monocytes/100 WBC (Bld) 10.1 % Normal 1.7-12.0 [facility] Comment on above: Performed By: #### C BC #### [facility] [address] [place] [address] Dr. Karina Montero NEUT # 2.4 103/ul Normal 1.4-6.5 [facility] Comment on above: Performed By: #### C BC #### [facility] [address] [place] [address] Dr. Karina Montero Neutrophils/100 WBC (Bld) 37.9 % Critically low 43.0-75.0 [facility] Comment on above: Performed By: #### C BC #### [facility] [address] [place] [address] Dr. Karina Montero Platelet mean volume (Bld) [Entitic vol] 10.7 fL Normal 9.5-13.5 [facility] Comment on above: Performed By: #### C BC #### [facility] [address] [place] [address] Dr. Karina Montero PLT 222 103/ul Normal 150-450 [facility] Comment on above: Performed By: #### C BC #### [facility] [address] [place] [address] Dr. Karina Montero RBC 5.00 106/ul Normal 4.20-5.40 [facility] Comment on above: Performed By: #### C BC #### [facility] [address] [place] [address] Dr. Karina Montero WBC 6.4 103/ul Normal 4.0-11.0 [facility] Comment on above: Performed By: #### C BC #### [facility] [address] [place] [address] Dr. Karina Montero LIPID PROFILEon 09-02-2022 CHOL-HDL RATIO NORM SEE BELOW Normal [facility] Comment on above: Result Comment: 3.3 - 4.4 LOW RISK 4.4 - 7.1 AVERAGE RISK 7.1 - 11.0 MODERATE RISK >11.0 HIGH RISK Performed By: #### T SH, LIPID, CMP #### [facility] [address] [place] [address] Dr. Karina Montero Cholesterol [Mass/Vol] 217 mg/dL Critically high <=200 [facility] Comment on above: Performed By: #### T SH, LIPID, CMP #### [facility] [address] [address] [address] Karina Montero Cholesterol in HDL [Mass/Vol] 45 mg/dL Normal 40-60 [facility] Comment on above: Performed By: #### T SH, LIPID, CMP #### [facility] [address] [address] [address] Karina Montero Cholesterol in LDL [Mass/Vol] 153.4 mg/dL Normal [facility] Comment on above: Performed By: #### T SH, LIPID, CMP #### [facility] [address] [place] [address] Dr. Karina Montero Cholesterol.total/ Cholesterol in HDL [Mass ratio] 4.8 {ratio} Normal [facility] Comment on above: Performed By: #### T SH, LIPID, CMP #### [facility] [address] [place] [address] Dr. Karina Montero HDL NORMAL > or = 60 mg/dl - LO W CARDIOVASCULAR RISK <40 mg/dl - HIGH CARDIOVASCULAR RISK Normal [facility] Comment on above: Performed By: #### T SH, LIPID, CMP #### [facility] [address] [place] [address] Dr. Karina Montero LDL CALC NORMAL SEE BELOW Normal [facility] Comment on above: Result Comment: <100 mg/dl OPTIMAL 100 - 129 mg/dl NEAR OR ABOVE OPTIMAL 130 - 159 mg/dl BORDERLINE HIGH 160 - 189 mg/dl HIGH >190 mg/dl VERY HIGH Performed By: #### T EMILY, LIPID, CMP #### [facility] [address] [address] [address] Karina Montero Triglyceride [Mass/Vol] 93 mg/dL Normal <=150 [facility] Comment on above: Performed By: #### T SH, LIPID, CMP #### [facility] [address] [place] [address] Dr. Karina Montero VLDL CALC 18.6 mg/dL Normal [facility] Comment on above: Performed By: #### T SH, LIPID, CMP #### [facility] [address] [address] [address] Karina Montero PROF 14(COMP METB)on 022 Albumin [Mass/Vol] 3.2 g/dL Critically low 3.4-5.0 [facility] Comment on above: Performed By: #### T EMILY, LIPID, CMP #### [facility] [address] [address] [address] Karina Montero Albumin/Globulin [Mass ratio] 0.8 {ratio} Normal [facility] Comment on above: Performed By: #### T EMILY, LIPID, CMP #### [facility] [address] [address] [address] Karina Montero ALP [Catalytic activity/Vol] 83 U/L Normal 46-116 [facility] Comment on above: Performed By: #### T EMILY, LIPID, CMP #### [facility] [address] [address] [address] Karina Montero ALT [Catalytic activity/Vol] 8 U/L Critically low 14-59 [facility] Comment on above: Performed By: #### T EMILY, LIPID, CMP #### [facility] [address] [address] [address] Karina Montero Anion gap [Moles/Vol] 5.2 mmol/L Normal [facility] Comment on above: Performed By: #### T EMILY, LIPID, CMP #### [facility] [address] [place] [address] Dr. Karina Montero AST [Catalytic activity/Vol] 10 U/L Critically low 15-37 [facility] Comment on above: Performed By: #### T EMILY, LIPID, CMP #### [facility] [address] [address] [address] Karina Montero Bilirubin [Mass/Vol] 0.3 mg/dL Normal 0.2-1.0 [facility] Comment on above: Performed By: #### T EMILY, LIPID, CMP #### [facility] [address] [address] [address] Karina Montero Calcium [Mass/Vol] 8.7 mg/dL Normal 8.5-10.1 [facility] Comment on above: Performed By: #### T EMILY, LIPID, CMP #### [facility] [address] [address] [address] Karina Montero Chloride [Moles/Vol] 103 mmol/L Normal 98-107 [facility] Comment on above: Performed By: #### T SH, LIPID, CMP #### [facility] [address] [address] [address] Karina Montero CO2 [Moles/Vol] 31.6 mmol/L Normal 21.0-32.0 [facility] Comment on above: Performed By: #### T SH, LIPID, CMP #### [facility] [address] [address] [address] Karina Montero Creatinine [Mass/Vol] 0.41 mg/dL Critically low 0.55-1.02 [facility] Comment on above: Performed By: #### T SH, LIPID, CMP #### [facility] [address] [place] [address] Dr. Karina Montero EGFR-AF CZECH >60 Normal >=60 [facility] Comment on above: Performed By: #### T SH, LIPID, CMP #### [facility] [address] [place] [address] Dr. Karina Montero EGFR-NON AF CZECH >60 Normal >=60 [facility] Comment on above: Performed By: #### T SH, LIPID, CMP #### [facility] [address] [address] [address] Karina Montero Globulin (S) [Mass/Vol] 4.0 g/dL Normal [facility] Comment on above: Performed By: #### T SH, LIPID, CMP #### [facility] [address] [place] [address] Dr. Karina Montero Glucose [Mass/Vol] 86 mg/dL Normal 74-106 [facility] Comment on above: Performed By: #### T SH, LIPID, CMP #### [facility] [address] [place] [address] Dr. Karina Montero Potassium [Moles/Vol] 3.8 mmol/L Normal 3.5-5.1 [facility] Comment on above: Performed By: #### T SH, LIPID, CMP #### [facility] [address] [place] [address] Dr. Karina Montero Protein [Mass/Vol] 7.2 g/dL Normal 6.4-8.2 [facility] Comment on above: Performed By: #### T SH, LIPID, CMP #### [facility] [address] [place] [address] Dr. Karina Montero Sodium [Moles/Vol] 136 mmol/L Normal 136-145 [facility] Comment on above: Performed By: #### T EMILY, LIPID, CMP #### [facility] [address] [place] [address] Dr. Karina Montero Urea nitrogen [Mass/Vol] 11.0 mg/dL Normal 7.0-18.0 [facility] Comment on above: Performed By: #### T EMILY, LIPID, CMP #### [facility] [address] [place] [address] Dr. Karina Montero Urea nitrogen/Creatinin e [Mass ratio] 26.8 mg/mg Normal [facility] Comment on above: Performed By: #### T EMILY, LIPID, CMP #### [facility] [address] [place] [address] Dr. Karina Montero TSHon 09-02-2022 TSH 1.071 uIU/mL Normal 0.358-3.740 [facility] Comment on above: Performed By: #### T EMILY, LIPID, CMP #### [facility] [address] [place] [address] Dr. Karina Montero VITAMIN D 25 OHon 09-02-2022 VIT D 25-OH 28.4 ng/mL Normal [facility] Comment on above: Performed By: #### V ITAD #### [facility] [address] [place] [address] Dr. Karina Montero VIT D RANGES SEE BELOW Normal [facility] Comment on above: Result Comment: <20 ng/mL Vit D deficient 20 - <30 ng/mL Vit D insufficient 30 - 100 ng/mL Vit D sufficient >100 ng/mL Potential Toxicity Performed By: #### V ITAD #### [facility] [address] [place] [address] Dr. Karina Montero Telephone Encounteron 2021 Safety Council Director Authentication Interface Message Text LM for her to call me for appt. Pt only considered New if 3 years have passed since last visit. Normal [facility] CULTURE URINEon 01-03-2022 CULTURE URINE Isolate 1 Proteus mirabilis >100,000 cfu/ml of ORGANISM 1 Proteus mirabilis ANTIBIOTIC M.I.C RX STATUS Ampicillin <=2 S F Ampicillin/Sulbactam <=2 S F Piperacillin/Tazobactam <=4 S F Cefazolin <=4 S F Ceftazidime <=1 S F Ceftriaxone <=1 S F Ertapenem <=0.5 S F Imipenem 2 S F Amikacin 8 S F Gentamicin 4 S F Tobramycin 2 S F Ciprofloxacin >=4 R F Levofloxacin >=8 R F Nitrofurantoin 128 R F Trimethoprim/Sulfametho xazole >=320 R F Normal [facility] Comment on above: Performed By: #### U RCX #### [facility] [address] [place] [address] Dr. Karina Montero UA (CLEAN/CATCH) WAFER CUTTER/MICRO I F IND.on 01-01-2022 Bilirubin Ql (U) Negative Normal NEGATIVE [facility] Comment on above: Performed By: #### U ACSIND UMICRO #### [facility] [address] [place] [address] Dr. Karina Montero Clarity (U) CLEAR Normal CLEAR [facility] Comment on above: Performed By: #### U ACSCARLIN ICRO #### [facility] [address] [place] [address] Dr. Karina Montero Color (U) LT. YELLOW Normal YELLOW [facility] Comment on above: Performed By: #### U ACSIND UMICRO #### [facility] [address] [place] [address] Dr. Karnia Montero Glucose Ql (U) Negative Normal NEGATIVE [facility] Comment on above: Performed By: #### U ACSIND UMICRO #### [facility] [address] [place] [address] Dr. Karina Montero Hemoglobin Ql (U) TRACE-LYSED Abnormal NEGATIVE [facility] Comment on above: Performed By: #### U ACSIND, UMICRO #### [facility] [address] [address] [address] Karina Montero Ketones Ql (U) Negative Normal NEGATIVE [facility] Comment on above: Performed By: #### U ACSIND, UMICRO #### [facility] [address] [address] [address] Karina Montero LEUKOCYTES LARGE Abnormal NEGATIVE [facility] Comment on above: Performed By: #### U ACSIND, UMICRO #### [facility] [address] [address] [address] Karina Montero Nitrite Ql (U) Positive Abnormal NEGATIVE [facility] Comment on above: Performed By: #### U ACSIND, UMICRO #### [facility] [address] [place] [address] Dr. Karina Montero pH (U) 8.5 [pH] Normal 5-9 [facility] Comment on above: Performed By: #### U ACSIND, UMICRO #### [facility] [address] [address] [address] Karina Montero SPEC GRAVITY 1.015 Normal 1.005-<=1.[address] [facility] Comment on above: Performed By: #### U ACSIND, UMICRO #### [facility] [address] [address] [address] Karina Montero UA PROTEIN 100 mg/dl Abnormal NEGATIVE/ TRACE [facility] Comment on above: Performed By: #### U ACSIND, UMICRO #### [facility] [address] [address] [address] Karina Montero UR MICRO IND INDICATED Normal [facility] Comment on above: Performed By: #### U ACSIND, UMICRO #### [facility] [address] [place] [address] Dr. Karina Montero Urobilinogen Qn (U) 1.0 {Peterson'U}/dL Normal 0.2 - 1.0 [facility] Comment on above: Performed By: #### U ACSIND, UMICRO #### [facility] [address] [address] [address] Karina Montero URINE MICROSCOPIC ONLYon BACTERIA LARGE Abnormal NONE SEEN [facility] Comment on above: Performed By: #### U ACSIND, UMICRO #### [facility] [address] [address] [address] Karina Montero Bacteria identified Cx Nom (U) INDICATED Normal [facility] Comment on above: Performed By: #### U ACSIND, UMICRO #### [facility] [address] [address] [address] Karina Montero CAST NONE SEEN Normal NONE SEEN [facility] Comment on above: Performed By: #### U ACSIND, UMICRO #### [facility] [address] [place] [address] Dr. Karina Montero Crystals LM Nom (Urine sed) SEEN Abnormal NONE SEEN [facility] Comment on above: Performed By: #### U ACSIND, UMICRO #### [facility] [address] [place] [address] Dr. Karina Montero Epithelial cells LM Ql (Urine sed) NONE SEEN Normal NONE SEEN /RARE [facility] Comment on above: Performed By: #### U ACSIND, UMICRO #### [facility] [address] [address] [address] Karina Montero MUCOUS LARGE Abnormal NONE SEEN [facility] Comment on above: Performed By: #### U ACSIND, UMICRO #### [facility] [address] [place] [address] Dr. Karina Montero RBC 5-10 Abnormal 0-2 [facility] Comment on above: Performed By: #### U ACSIND, UMICRO #### [facility] [address] [address] [address] Karina Montero TRIPLE PHOS CRYSTALS MODERATE Normal [facility] Comment on above: Performed By: #### U ACSIND, UMICRO #### [facility] [address] [place] [address] Dr. Karina Montero WBC 50-75 Abnormal NONE SEEN [facility] Comment on above: Performed By: #### U ACSRENATO GILLIS #### [facility] [address] [place], [place] [address] Dr. Karina Montero Progress Noteson 12-28-2021 Safety Council Director Authentication Interface Message Text Ms [place]'s appointment was rescheduled to 12/28/21 -- However, PSE received call late on Tuesday12/25/21 - that they were cancelling the surgery for Tuesday, as patient was discharged from facility, and will be home - unable to acquire transportation. - ----- Tuesday, December 28, 2021 at 8:07:43 AM ----- ----- Provider: Yisel Guevara Specialist -- Clinic: [place] ----- Normal [facility] PSE Call H AND Stephen Safety Council Director Authentication Interface Message Text Patient was identified by name and date of by nursing staff at [facility]. Sophy Dong RN Preop and medication instructions given to staff. Pt is vaccinated x2 for covid and will not need covid testing prior to dental surgery . Normal [facility] Telephone Encounteron 2021 Safety Council Director Authentication Interface Message Text Pt does not need covid testing for surgery . Covid vaccine completed. 01/16/2021 and 03/03/2021 Normal [facility] Progress Noteson 11-03-2021 Safety Council Director Authentication Interface Message Text ----- Wednesday, November 03, 2021 at 10:51:21 AM ----- ----- Provider: Destiny Winn, -- Clinic: [place] ----- Due to the weather conditions the patient was unable to make the appointment at [place]. OR was cancelled. Normal [facility] Anesthesia Preprocedure Eval uationon 10-31-2021 Safety Council Director Authentication Interface Message Text ASA: 3 PSE [...] chills, and chest pain. No SOB, cough, palpitation,???and???di arrhea. Patient was seen at an outside ER and had an abdominal CT concerning for an abdominal abscess, and thus was sent to [facility] for further evaluation. Patient presented with low grade fever and was tachycardic with further admission to SDU. ??? She was seen by general surgery and ortho in the ER, who recommended IR drainage of her abscess, though IR felt this was not indicated (they thought was chronic). ID recommended continue with cefepime, metronidazole, and vancomycin (also, ID will review imaging with Radiology).?Plan made for patient to receive long-term abx [...] EKG, imaging, and consults reviewed Normal [facility] PSE Appt H AND Stephen Safety Council Director Authentication Interface Message Text Patient was identified by name and date of . Nati Carroll Bill of rights provided to patient Normal [facility] Patient Instructionson 10-27 Safety Council Director Authentication Interface Message Text MEDICATIONS: Follow your [...] procedure. Contact the Pre-Surgical Evaluation department at [phone] or your surgeon's office with any additional [...] surgery. Contact the Pre-Surgical Evaluation department at [phone] or your surgeon's office with any questions. Normal [facility] Progress Noteson 09-14-2021 Safety Council Director Authentication Interface Message Text Spoke to Ms. [place] and her nurse (Radha Andres) regarding scheduling OR visit for Ms. [place]. -- They were confused because Ms. [place] has an appointment schedule with Oral Surgery for 11/17/21 @ 3:00 - I explained the Oral Surgery will not take her teeth out on that visit, as she would be seen as a New Patient. However, if she schedules the appointment for the Operating Room, 11/02/21 -- we will extract her teeth, along any restorations needed will be completed. Ms. Tohmson agreed to the OR visit on 11/02/21 (PSE 10/27/21 @ 1:00 pm) ----- Tuesday, September 14, 2021 at 11:18:34 AM ----- ----- Provider: iYsel Guevara Specialist -- Clinic: [place] ----- Normal [facility] Telephone Encounteron 2020 Safety Council Director Authentication Interface Message Text Nathalia Justice MD ??? 12:08 PM Note Sukhjinder - can one of you please call [facility] and discontinue Bactrim and Rifampin? She does not need labs for monitoring anymore either. [facility] [place] contacted at [phone] Orders relayed to Paola BAILEY Patient has f/u with Tracy Jacobsen APRN on 09/15/21 Evelina Durham APRN-ADULT CROSSING GUARD Normal [facility] Safety Council Director Authentication Interface Message Text Sukhjinder - can one of you please call [facility] and discontinue Bactrim and Rifampin? She does not need labs for monitoring anymore either. Normal [facility] Telephone Encounteron 2020 Safety Council Director Authentication Interface Message Text Forwarded to Dr Justice Normal [facility] Telephone Encounteron 2020 Safety Council Director Authentication Interface Message Text Please advise Last seen by Tracy Jacobsen 04/28 Normal [facility] [employer] Authentication Interface Message Text From: Tyesha [place] To: Nathalia Justice MD Sent: 08/19/2021 4:42 PM EDT Subject: Visit Follow-Up Question Is it required for you to see me in person every month? Or can we do over the phone visits? It's just been a hassle for this facility to find a ride for me to get up there to [place]. Just mainly curious if you had anything to discuss with me in an email form. Thanks for taking the time to read this. -Tyesha [place] Normal [facility] Progress Note - WOUND CENTER on 01-05-2021 Progress Note - WOUND CENTER NAME: TYESHA [place] MR#: [id number] DATE OF SERVICE: 01/05/2021 WOUND CARE PROGRESS NOTE Ms. [place] presents to the office now with continued [...] for followup is recommended. NAYELI HENDRICKS MD [id number] E/S: Nayeli Hendricks MD 01/08/21 1244 Signature on File [facility] PATIENT NAME: TYESHA [place] [address] [address] UNIT #: [id number] : 86 DOS: 01/05/21 WOUND CLINIC PROGRESS NOTE ATTENDING PHY: Nayeli Hendricks MD Normal [facility] Progress Note - WOUND CENTER on 12-15-2020 Progress Note - WOUND CENTER NAME: TYESHA TH[place] MR#: [id number] DATE OF SERVICE: 12/15/2020 WOUND CARE PROGRESS NOTE Ms. [place] presents the office now with persistent left [...] debridement at this time. NAYELI HENDRICKS MD P/[id number] E/S: Nayeli Hendricks MD 12/18/20 1257 Signature on File [facility] PATIENT NAME: TYESHA THOMSON[address] [place] [address] UNIT #: [id number] : 86 DOS: 12/15/20 WOUND CLINIC PROGRESS NOTE ATTENDING PHY: Nayeli Hendricks MD Normal [facility] Encounters Encounter Date Encounter Type Care Provider Facility Start: 08-07-2024 End: 08-07-2024 Telephone encounter Salima Abrams RN Maternal Medicine Start: 08-02-2024 End: 08-02-2024 Clinisync Result Encounter Generic External Data Provider [facility] External Department Unsolicited Start: 08-02-2024 End: 08-02-2024 Clinisync Result Encounter Generic External Data Provider [facility] External Department Unsolicited Start: 08-02-2024 End: 08-02-2024 ambulatory [facility] Facility:[facility] Start: 08-02-2024 End: 08-02-2024 Patient encounter procedure Whi Tech 2 Elastic Att[employer] Over[employer] [facility] Main R Maternal Medicine Comment on above: Urethrovaginal fistu la (Primary Dx); Neurogenic bladder; Spinal cord injury at T8 level, sequela (HCC); Infection of urinary tract in in third trimester; 35 weeks gestation of Start: 08-01-2024 End: 08-06-2024 Evaluation and management of inpatient ALICE BEACHENRIQUE Facility:[facility] Start: 08-01-2024 End: 08-01-2024 Clinisync Result Encounter Generic External Data Provider [facility] External Department Unsolicited Start: 08-01-2024 End: 08-01-2024 Clinisync Result Encounter Generic External Data Provider [facility] External Department Unsolicited Start: 08-01-2024 End: 08-01-2024 Telephone encounter Salima Abrams RN [facility]aternal [facility] Start: 08-01-2024 End: 08-01-2024 Evaluation and management of inpatient ALICE TATE Facility:[facility] Start: 07-31-2024 End: 07-31-2024 ambulatory SINGH MORSE Facility:[facility] Start: 07-27-2024 End: 07-27-2024 Refill Mely SARMIENTO Work Phone: [facility] Comment on above: Mild anxiety Start: 07-27-2024 End: 07-27-2024 ambulatory ALICE BEACHCindi Facility:[facility] Start: 07-27-2024 End: 07-27-2024 Patient encounter procedure Ron Ruiz MD Work Phone: Urology Comment on above: No-show for appointm ent (Primary Dx) Start: 07-27-2024 End: 07-27-2024 Telemedicine consultation with patient Ron Ruiz MD Work Phone: Urology Start: 07-24-2024 End: 07-26-2024 Telephone encounter Salima Abrams RN Maternal Medicine Start: 07-23-2024 End: 07-26-2024 ambulatory Ron Ruiz MD Work Phone: Urology Start: 07-19-2024 End: 07-19-2024 Telephone encounter Ron Ruiz MD Work Phone: [facility] & Start: 07-11-2024 End: 07-11-2024 ambulatory [facility] Work Phone: Maternal Medicine Start: 07-11-2024 End: 07-11-2024 E-mail encounter from caregiver [facility] Work Phone: Maternal Medicine Start: 07-11-2024 End: 07-11-2024 Telephone encounter [facility] Work Phone: Maternal Medicine Comment on above: Appointment Start: 07-09-2024 End: 07-10-2024 Transcribe Orders Sharifa Mesa Work Phone: [facility] Physician Referral Service Start: 07-04-2024 End: 07-04-2024 ambulatory SHARIFA M MOSHE Not Available Start: 03-29-2024 End: 03-29-2024 ambulatory Sreekanth Dey Facility:[facility] Start: 03-22-2024 End: 03-22-2024 ambulatory SHARIFA Sorenson MOSHE Not Available Start: 02-22-2024 End: 02-22-2024 ambulatory Sreekanth Dey Facility:[facility] Start: 02-09-2024 End: 02-09-2024 ambulatory SHARIFA Sorenson MOSHE Not Available Start: 01-25-2024 End: 01-25-2024 ambulatory Sreekanth J Dey Facility:[facility] Start: 01-12-2024 End: 01-12-2024 ambulatory SHARIFA Sorenson MOSHE Not Available Start: 12-28-2023 End: 12-28-2023 ambulatory [facility] Facility:[facility] Start: 11-30-2023 End: 11-30-2023 ambulatory [facility] Facility:[facility] Start: 11-24-2023 Chart abstracting Sharifa miller NP Work Phone: [facility] Start: 11-24-2023 End: 11-24-2023 ambulatory SHARIFA Sorenson MOSHE Not Available Start: 11-02-2023 End: 11-02-2023 ambulatory [facility] Facility:[facility] Start: 10-05-2023 End: 10-05-2023 ambulatory [facility] Facility:[facility] Start: 09-26-2023 End: 09-26-2023 ambulatory JEWELS SHARPE Not Available Start: 09-07-2023 End: 09-07-2023 ambulatory [facility] Facility:[facility] Start: 05-18-2023 End: 05-19-2023 ambulatory Rach Ledbetter Facility:[facility] Start: 05-18-2023 End: 05-18-2023 Patient encounter procedure Rach Ledbetter [facility] Start: 04-12-2023 End: 04-13-2023 ambulatory TORSTEN-C ALICE GIPSON Facility:[facility] Start: 04-12-2023 End: 04-12-2023 Patient encounter procedure ALICE GIPSON [facility] Josh Start: 02-16-2023 ambulatory [facility]rek LOPEZ [facility] Start: 12-28-2022 Letter encounter Dalton alvarez MD Work Phone: [facility] Start: 12-06-2022 ambulatory Sandeep LOPEZ Facili ty:[facility] Start: 09-02-2022 End: 09-03-[address] MELY LOO Facility:[facility] Start: 01-01-2022 End: 01-01-2022 ambulatory SHARIFA MESA Facility:[facility] Start: 12-17-2021 ambulatory UNKNOWN PROVIDER Facili ty:[facility] Start: 11-27-2021 ambulatory KLAUDIA AL MASHNI Facilit y:[facility] Start: 11-02-2021 ambulatory UNKNOWN PROVIDER Facili ty:[facility] Start: 10-27-2021 ambulatory UNKNOWN PROVIDER Facili ty:[facility] Start: 09-23-2021 ambulatory KLAUDIA AL MASHNI Facilit y:[facility] Procedures Date Procedure Procedure Detail Performing Clinician Start: 08-02-2024 Us preg uterus after 1st trimest 10/17 gestation Salima Abrams RN Start: 08-02-2024 [facility] URINALYSIS COMPL ETE PNL UR Generic External Data Provider Start: 08-01-2024 Antibody screen LEVON TATE Comment on above: Order Comment: Speci men Type: BLOOD SPECIMENOrdering Facility: [facility] Address: [address] [place] [address] Performed By: #### T SPN ####CC MAIN BLOOD BANKCLIA [id number] [address] [place] Start: 08-01-2024 [facility] CBC W AUTO DIFF BLD Generic External Data Provider Start: 10-17-2016 Decompression of med salvador nerve ALICE GIPSON Start: 08-07-2015 H/O: surgery Status post fl ap graft Dalton Saez MD Work Phone: Start: 01-27-2012 Epidural injection o f thoracic spine using fluoroscopic guidance ALICE GIPSON Comment on above: T8-9 no relief, lowe r back hurts now Start: 10-22-2011 Celiac plexus block SUZI GIPSON Comment on above: no relief back surgery ALICE GIPSON bilat ankle surgery ALICE GIPSON bilat knee surgery ALICE GIPSON Cholecystectomy ALICE WILSON creation of bladder stoma 3 ALICE GIPSON Comment on above: right lower abdomen (self caths with 14 belarusian catheter) Alfonso catheter penitentiary use Alfonso catheter jumpbasting canvas baster use ALICE GIPSON History of cholecystectomy gallbladder varela rgery ALICE GIPSON L arm surgery ALICE GIPSON L hip surgery ALICE GIPSON Plan of Treatment Date Care Activity Detail Author Start: 2036 Shingles (RZV) Vacci ne (1 of 2) Shingles (RZV) Vaccine (1 of 2) [facility] Start: 08-09-2024 End: 08-09-2024 Patient encounter procedure [facility] Comment on above: est mfm BPP Start: 08-02-2024 End: 08-02-2024 Patient encounter procedure [facility] Comment on above: anatomy New MFM consult Start: 07-27-2024 End: 07-27-2024 ambulatory 07/27/2024 9:00 AM EDT [facility] [address] [address] Ron Ruiz MD [address] [place] [address] Paraplegia Urology Comment on above: Paraplegia Start: 07-23-2024 End: 07-23-2024 Patient encounter procedure 07/23/2024 11:30 AM EDT Office Visit Urology [address] [address] Ron Ruiz MD [address] [place] [address] Paraplegia Urology Comment on above: Paraplegia Start: 07-23-2024 End: 07-23-2024 Patient encounter procedure [facility] Comment on above: late transfer anatom y/ LM for patient to confirm appoinment change. sd new transfer of care per SN Start: 07-18-2024 End: 07-18-2024 Patient encounter procedure [facility] Comment on above: late transfer anatom y new transfer of care per SN Start: 07-10-2024 End: 07-10-2025 OBSTETRIC ULTRASOUND WHI OBSTETRIC ULTRASOUND WHI Anc Imaging Routine Neurogenic bladder Spinal cord injury at T8 level, sequela (HCC) Expected: 07/10/2024, Expires: 07/10/2025 [facility] Work Phone: Comment on above: Expected: 07/10/2024 , Expires: 07/10/2025 Start: 07-09-2024 RSV Vaccine (1 - Ris k 1-dose series) RSV Vaccine (1 - Risk 1-dose series) [facility] Start: 06-17-2024 COVID-19 Vaccine ( season) [facility] Start: 06-17-2024 Covid-19 Vaccine ( season) Covid-19 Vaccine ( season) [facility] Start: 06-17-2024 Influenza vaccination Influenza Vacc ine (#1) [facility] Start: 11-24-2023 End: 11-24-2023 Patient encounter procedure 11/24/2023 2:00 PM EST Office Visit [facility] [address] [facility] [address] [place] [id number] Sharifa Mesa, PROGRAMMING INTERN [address] [place] [address] [facility] Start: 06-17-2023 Influenza vaccination Influenza Vacc ine (#1) [facility] Start: 07-17-2022 Influenza vaccination Influenza Vacc ine (#[facility]) [facility] Start: 04-28-2021 COVID-19 Vaccine (3 - Booster for Moderna series) COVID-19 Vaccine (3 - Booster for Moderna series) [facility] Start: 2016 Screening for malign ant neoplasm of cervix [facility] Start: 2013 HPV Vaccine (optiona l start 27-45 years) HPV Vaccine (optional start 27-45 years) [facility] Start: 12-27-2007 Screening for malign ant neoplasm of cervix [facility] Start: 2005 Hepatitis A (HAV) Vaccine (optional start 19+ years) Hepatitis A (HAV) Vaccine (optional start 19+ years) [facility] Start: 2005 Hepatitis B vaccination Hepati tis B (HBV) Vaccine (1 of 3 - 19+ 3-dose series) [facility] Start: 2005 Hepatitis B Vaccine (1 of 3 - 19+ 3-dose series) Hepatitis B Vaccine (1 of 3 - 19+ 3-dose series) [facility] Start: 2005 Urine microalbumin profile DTaP,Tdap,Td Vaccine (1 - Tdap) [facility] Start: 2004 Anxiety Screening Anxiety Screening [facility] Start: 2004 Depression Screening Depression Scre ing [facility] Start: 2004 Hepatitis C screening Hepatitis C An tibody [facility] Start: 2004 HIV screening HIV Screening [facility] Start: 2004 Tetanus + diphtheria + acellular pertussis vaccine (product) Tdap [facility] Start: 1992 Pneumococcal vaccination [facility] Start: 1986 Screening for malign ant neoplasm of breast [facility] End: 02-03-2025 BIOPHYSICAL PROFILE US [facility] BIOPHYSICAL PROFILE US [facility] Anc Imaging Routine Spinal cord injury at T8 level, sequela (HCC) Once per week for 10 Occurrences starting 08/07/2024 until 02/03/2025 [facility] Work Phone: Comment on above: Once per week for 10 Occurrences starting 08/07/2024 until 02/03/2025 URINALYSIS, REFLEX MICROSCOPIC URINALYSIS, REFLEX MICROSCOPIC Lab Routine Screening for genitourinary condition Ordered: 07/23/2024 [facility] Work Phone: Comment on above: Ordered: 07/23/2024 Immunizations Immunization Date Immunization Notes Care Provider Dru sexton 03-03-2021 Moderna (primary 12+ yrs) COVID-19 vaccine, mRNA, spike protein, LNP, PF, 100 mcg/0.5 mL (DQL=961) Dalton Saez MD Work Phone: [facility] 02-03-2021 Moderna (primary 12+ yrs) COVID-19 vaccine, mRNA, spike protein, LNP, PF, 100 mcg/0.5 mL (JYG=[id number]) Dalton Saez MD Work Phone: [facility] 03-23-2020 Albumin Dalton foster MD Work Phone: [facility] 03-22-2020 Albumin Dalton foster MD Work Phone: [facility] Payers Date Payer Category Payer Private Health Insurance [facility] MEDICAID [id number] 2020 Medicaid [id number] 1986 Unknown [id number] 2.16.840.1.692651.3.579.2. 732 1986 Unknown [id number] 2.16.840.1.869725.3.579.2. 732 1986 Unknown [id number] 2.16.840.1.898521.3.579.2. 732 1986 Unknown [id number] 2.16.840.1.293358.3.579.2. 732 1986 Unknown [id number] 2.16.840.1.095739.3.579.2. 732 1986 Unknown [id number] 2.16.840.1.182377.3.579.2. 593 1986 Unknown [id number] 2.16.840.1.903617.3.579.2. 593 1986 Unknown [id number] 2.16.840.1.961164.3.579.2. 727 1986 Unknown [id number] 2.16.840.1.922033.3.579.2. 727 1986 Unknown [id number] 2.16.840.1.049485.3.579.2. 727 1986 Unknown [id number] 2.16.840.1.155505.3.579.2. 727 1986 Unknown [id number] 2.16.840.1.326697.3.579.2. 9 1986 Unknown [id number] 2.16.840.1.077123.3.579.2. 9 1986 Unknown [id number] 2.16.840.1.647415.3.579.2. 1259 1986 Unknown [id number] 2.16.840.1.209823.3.579.2. 1259 1986 Unknown [id number] 2.16.840.1.583976.3.579.2. 9 1986 Unknown [id number] 2.16.840.1.768411.3.579.2. 1259 1986 Unknown [id number] 2.16.840.1.831678.3.579.2. 718 1986 Unknown [id number] 2.16.840.1.211239.3.579.2. 718 1986 Unknown [id number] 2.16.840.1.263747.3.579.2. 718 1986 Unknown [id number] 2.16.840.1.017155.3.579.2. 8 1986 Unknown [id number] 2.16.840.1.996050.3.579.2. 8 1986 Unknown [id number] 2.16.840.1.379984.3.579.2. 8 1986 Unknown [id number] 2.16.840.1.409040.3.579.2. 718 1986 Unknown [id number] 2.16.840.1.130639.3.579.2. 8 1986 Unknown [id number] 2.16.840.1.931732.3.579.2. 718 1959 Medicaid [id number] Social History Date Type Detail Facility Start: 10-17-2002 End: 08-03-2023 Tobacco smoking status [facility] Smokes tobacco daily [facility] Work Phone: Start: 10-17-2002 End: 03-21-2020 History of tobacco use Cigarette Smoker [facility] Start: 07-02-2020 End: 08-02-2024 Cigarettes smoked current (pack per day) - Reported 0.5 [facility] Start: 12-13-2016 End: 07-02-2020 Tobacco use and exposure Smokeless tobacco non-user [facility] Start: 04-28-2021 End: 08-01-2024 Alcohol intake Current drinker of alcohol (finding) [facility] Start: 03-21-2020 History SDOH Alcohol Frequency 2 [facility] Start: 03-21-2020 Tobacco Comment 09/2014 quit s moking; started again [facility] Start: 06-17-2015 Alcohol Comment rare [facility] Start: 1985 [facility] Tobacco Cigarettes [facility] Comment on above: 1/2 ppd Tobacco smoking status No Smokin g Status Entered [facility] Start: 08-03-2023 End: 08-02-2024 Sex Assigned At Female [facility] Within the last year , [...] cigar ettes a day do you smoke: 11-20 [facility] Start: 08-02-2023 Alcohol Comment 1 or 2 drinks on a typical day; Monthly or less consumption of alcoholic drinks [facility] Start: 1986 Sex Assigned At Not on file [facility] Start: 09-21-2021 Gender identity Identifies as female gender (finding) [facility] Start: 12-13-2016 [facility] History of tobacco use Current smoker [facility] Start: 12-13-2016 Alcohol [facility] Start: 12-12-2023 [facility] How often do you hav e 6 or more drinks on 1 occasion? Less than monthly [facility] How hard is it for y ou to pay for the very basics like food, housing, medical care, and heating Hard [facility] Do you feel stress - tense, restless, nervous, or anxious, or unable to sleep at night because your mind is troubled all the time - these days [OSQ] Rather much [facility] Start: 02-13-2024 Sexual orientation Choose not to dis close [facility] Clinical Notes 12-01-2020 to 08-07-2024 Telephone Encounter - Salima Abrams RN - 08/07/2024 10:02 AM EDTTelephone Encounter - Salima Abrams RN - 08/07/2024 10:02 AM Ron Henry MD - 07/27/2024 9:00 AM EDT Note Date & Type Note Facility 08-07-2024 Telephone encounter Note Call to patient. Discussed recent admission, patient states that she and her partner had many issues with their stay, patient had already been connected to the [facility] office. They confirmed that they were happy with their care from the medical team's perspective. Discussed plan moving forward. Plan for visit and ultrasound on 08/[address] Padilla to review delivery plan and ensure family is comfortable moving forward. Extensively discussed my role as special needs caregiver, reviewed that being seen as an outpatient for planning can prevent miscommunications as an inpatient. Patient accepts NICU consult. Reviewed the need for NICU admission for baby, d/t lack of locked pp unit. Reiterated banding and alarm system to ensure infant safety while inpatient. Discussed that Admission to SDU will be on 08/15 and post delivery patient will be admitted to [facility] for recovery. Reviewed with patient that urology team will be involved in her case along with MFM. All questions answered at this time. Reassured patient and her partner. They verbalized that they are comfortable with the plan so far and look forward to their visit . They did verbalize their issue with gas money, pt reports she plans to call [employer] to inquire about mileage reimbursement. [facility] 08-07-2024 Miscellaneous Notes Call to patient. Discussed recent admission, patient states that she and her partner had many issues with their stay, patient had already been connected to the [facility] office. They confirmed that they were happy with their care from the medical team's perspective. Discussed plan moving forward. Plan for visit and ultrasound on 08/[address] Padilla to review delivery plan and ensure family is comfortable moving forward. Extensively discussed my role as special needs caregiver, reviewed that being seen as an outpatient for planning can prevent miscommunications as an inpatient. Patient accepts NICU consult. Reviewed the need for NICU admission for baby, d/t lack of locked pp unit. Reiterated banding and alarm system to ensure safety while inpatient. Discussed that Admission to SDU will be on 08/15 and post delivery patient will be admitted to [facility] for recovery. Reviewed with patient that urology team will be involved in her case along with MFM. All questions answered at this time. Reassured patient and her partner. They verbalized that they are comfortable with the plan so far and look forward to their visit . They did verbalize their issue with gas money, pt reports she plans to call [facility] to inquire about mileage reimbursement. documented in this encounter [facility] 08-06-2024 Note HNO ID: [id number] Author: GOGO OATES, ? Service: ? Author Type: Licensed Surveyor Type: Plan of Care Filed: 08/06/2024 13:08 Note Text: PHARMACY BEDSIDE DELIVERY SERVICE Patient Name: Tyesha Thomson The marked outpatient medications were Filled at[facility] and delivered to the patient's bedside to dilip Medication List START taking these medications amoxicillin 500 mg capsule Commonly known as: AMOXIL Take 2 capsules by mouth three times a day. Delivered 19 29 mg iron- 1 mg Generic drug: [id number] acid Take 1 tablet by mouth once daily. Delivered CHANGE how you take these medications * gabapentin 300 mg capsule Commonly known as: NEURONTIN What changed: Another medication with the same name was added. Make sure you understand how and when to take each. Historical med * gabapentin 600 mg tablet Commonly known as: NEURONTIN Take one and a half tablets by mouth four times daily for 42 doses. What changed: You were already taking a medication with the same name, and this prescription was added. Make sure you understand how and when to take each. Delivered * gabapentin 600 mg tablet Commonly known as: NEURONTIN What changed: Another medication with the same name was added. Make sure you understand how and when to take each. Duplicate entry * melatonin 1 mg tablet What changed: Another medication with the same name was added. Make sure you understand how and when to take each. Historical med * melatonin 3 mg tablet Take 1 tablet by mouth daily at bedtime. What changed: You were already taking a medication with the same name, and this prescription was added. Make sure you understand how and when to take each. Profiled for future use * melatonin 3 mg tablet Take 1 tablet by mouth daily at bedtime. What changed: You were already taking a medication with the same name, and this prescription was added. Make sure you understand how and when to take each. Delivered * rOPINIRole 1 mg tablet Commonly known as: REQUIP Take 3 tablets by mouth once daily. What changed: You were already taking a medication with the same name, and this prescription was added. Make sure you understand how and when to take each. Delivered * rOPINIRole 1 mg tablet Commonly known as: REQUIP What changed: Another medication with the same name was added. Make sure you understand how and when to take each. Duplicate entry * rOPINIRole 0.5 mg tablet Commonly known as: REQUIP What changed: Another medication with the same name was added. Make sure you understand how and when to take each. Historical med * This list has 9 medication(s) that are the same as other medications prescribed for you. Read the directions carefully, and ask your doctor or other care provider to review them with you. CONTINUE taking these medications albuterol 2.5 mg /3 mL (0.083 %) nebulizer solution Commonly known as: PROVENTIL baclofen 20 mg tablet benzocaine 20 % Gel Cholecalciferol (VitD3) (Bulk) 100,000 unit/gram Powd docusate sodium 100 mg capsule Commonly known as: COLACE Take 1 capsule by mouth twice daily. * DULoxetine 60 mg capsule Commonly known as: CYMBALTA * DULoxetine 30 mg capsule Commonly known as: CYMBALTA Multivitamin capsule oxybutynin ER 10 mg 24 hr tablet Commonly known as: DITROPAN XL Take 1 tablet by mouth once daily. PriLOSEC 20 mg capsule Generic drug: omeprazole sertraline 25 mg tablet Commonly known as: ZOLOFT sulfamethoxazole-trimethoprim 800-160 mg per tablet Commonly known as: BACTRIM DS Take 1 tablet by mouth twice daily. traZODone 50 mg tablet Commonly known as: DESYREL VITAMIN C 500 mg tablet Generic drug: ascorbic acid (vitamin C) ZINC-220 ORAL * This list has 2 medication(s) that are the same as other medications prescribed for you. Read the directions carefully, and ask your doctor or other care provider to review them with you. You might also be taking other medications not listed above. If you have questions about any of your other medications, talk to the person who prescribed them or your Primary Care Provider. STOP taking these medications PANTOPRAZOLE ORAL Pregabalin 200 mg capsule Commonly known as: LYRICA promethazine 25 mg tablet Go-Pack Commonly known as: PHENERGAN rifAMPin 300 mg capsule Commonly known as: RIFADIN ASK your doctor about these medications * oxyCODONE IR 5 mg immediate release tablet Commonly known as: ROXICODONE Take 1-2 tablets by mouth every 4 hours as needed. * oxyCODONE IR 5 mg immediate release tablet Commonly known as: ROXICODONE Take 1 tablet by mouth every 4 hours as needed for Pain (1-2 Q4 h as needed for pain). * This list has 2 medication(s) that are the same as other medications prescribed for you. Read the directions carefully, and ask your doctor or other care provider to review them wit (more content not included)... [facility] 08-06-2024 Note HNO ID: [id number] Author: ADRYAN RASHEED MD Service: Obstetrics Author Type: Physician Type: Procedures Filed: 08/06/2024 10:55 Note Text: OBSTETRICS NST SUMMARY SERVICE DATE: August 06, 2024 The patient is a 38 year old female, , who is at 36w0d with an CHRISTINA of 09/03/2024, Date entered prior to episode creation dating method. NST OBJECTIVE FINDINGS PER NURSE: Start Time: 919 (08/06/24919 : Norma Mojica RN) Complete Time: 1026 (08/06/24 102 : Norma Mojica RN) Indications: Other: Comment (maternal condition) (08/06/24919 : Norma Mojica RN) Patient Reason For: listen to baby (08/06/24919 : Norma Mojica RN) NST Explanation: Procedure Explained;Verbalizes Understanding;Monitor Explained (08/06/24919 : Norma Mojica RN) Acoustic Stimulator: Interventions: MONITORING/ASSESSMENT: Baseline: 115 bpm (08/06/241026 : Norma Mojica RN) Variability: Moderate (6-25 bpm) (08/06/241026 : Norma Mojica RN) Accelerations: Present (08/06/241026 : Norma Mojica RN) Decelerations: Decelerations: None (08/06/241026 : Norma Mojica RN) Contractions: Not present (08/06/241026 : Norma Mojica RN) Frequency: Above information forwarded to Dr Rasheed (08/06/241026 : Norma Mojica RN) for final review and interpretation. SIGNATURE: Norma Mojica RN PATIENT NAME: Tyesha Thomson DATE: August 06, 2024 TIME: 10:33 AM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
--- NOTE | 2024-08-12 14:16 | PC.NURSE ---
[address] Woo verbal order to stop Pit. 1st unit of blood continues.
[2024-08-12] MEDS: LACTATED RINGER'S SOLUTION 1,000 ML 1000 ML IV (14:26)
[2024-08-12] MEDS: MORPHINE SULFATE 4 MG/ML VIAL IV ×2 (14:26→18:33)
[2024-08-12] MEDS: TRANEXAMIC ACID 1,000 MG in 0.9 % SODIUM CHLORIDE 100 ML 440 MG IV (14:27)
[2024-08-12] MEDS: ADACEL DIPH,PERTUSS(ACELL),TET VAC/PF 0.5 ML ADULT SYRINGE IM (14:30)
--- NOTE | 2024-08-12 14:45 | PC.NURSE ---
1 Unit of blood complete
--- NOTE | 2024-08-12 15:08 | PC.NURSE ---
NC O2 turned down to 3L, will continue to monitor.
--- NOTE | 2024-08-12 17:25 | ED.FEMALEGU1 ---
HPI - Female Genitourinary General Chief complaint: OB/Uterine Contractions Time Seen by Provider: 08/12/24 13:40 Source: patient Mode of arrival: ambulance History of Present Illness HPI Narrative: Patient is 38-year-old female with history of being paraplegic with chronic Alfonso catheter placement, she is coming to the ER after she delivered her baby and her arrival to the ER. The patient is a 37 weeks although when asked about her care she mentioned that she is supposed to have care with the [facility] , but was was also noted that the patient has been trying to get a OB doctor around the area here too, The patient had no care until the last few weeks when she was looking for OB doctor The patient upon arrival she was bleeding vaginally and she had undetectable blood pressure initially she was feeling dizzy Related Data Previous Rx's ?Medication ?Instructions ?Recorded dicyclomine 20 mg tablet 20 mg PO QID PRN abdominal pain 09/18/23 #10 tabs Allergies Allergy/AdvReac Type Severity Reaction Status Date / Time cefazolin Allergy Intermediate Verified 09/18/23 10:46 ciprofloxacin (From Cipro) Allergy Intermediate Verified 09/18/23 10:46 Review of Systems ROS Status of ROS 10 or more systems reviewed and unremarkable except as noted in history and below PFSH PFSH Social History Smoking status: Current every day smoker Little interest or pleasure in doing things: not at all Feeling down, depressed, or hopeless: not at all Exam Narrative Exam Narrative: Nurses notes and vital signs reviewed and tearful and crying The patient presented to us with the active vaginal bleeding almost around 400 cc of blood with unresponsive and her vaginal area, the patient had the cord still connected. CPR continued on the General: Well-appearing and in no apparent distress. Skin: Warm, dry, no pallor noted. No rash. Head: Normocephalic, atraumatic. Neck: Supple, non-tender. Eye: Pupils are equal, round and EOMI. No scleral icterus. Ears, Nose, Mouth, and Throat: TM are clear, no nasal mucosal hypertrophy. Oral mucosa is moist, no posterior oropharynx erythema, uvula is mid-line Cardiovascular: Regular Rate and Rhythm without murmur, gallop or rub. Respiratory: No accessory muscle use or respiratory distress. Lungs are clear to auscultation, no wheezing, rales or rhonchi Chest Wall: no tenderness Abdomen examination showed suprapubic tenderness and vaginal examination showed that the patient have active bleeding with a cord of the placenta showing up GI: Abdomen is soft, non-distended. Normal bowel sounds. No masses appreciated. No tenderness to palpation. No rebound, guarding, or rigidity noted. Constitutional Vital Signs, click to edit/add: Last Vital Signs Pulse 94 H 08/12/24 16:50 Resp 20 08/12/24 16:50 BP 113/97 H 08/12/24 16:46 Pulse Ox 99 08/12/24 15:20 Course Vital Signs Vital signs: Vital Signs Pulse Rate 137 H 08/12/24 13:11 Respiratory Rate 26 H 08/12/24 13:11 Blood Pressure 104/70 08/12/24 13:11 Pulse Oximetry 99 08/12/24 13:11 Pulse Rate 94 H 08/12/24 16:50 Respiratory Rate 20 08/12/24 16:50 Blood Pressure 113/97 H 08/12/24 16:46 Pulse Oximetry 99 08/12/24 15:20 MDM - Female Genitourinary MDM Narrative Medical decision making narrative: Initially upon arrival the cord was cut between the patient and the infant and CPR continued on the infant The patient then had massage of the suprapubic area IV access established in both arms IV fluids started after soon as the patient arrived and the blood pressure initially was undetectable with the automatic blood pressure cuff with a manual blood pressure the patient was at 102 systolic and she was very dizzy and tachycardic in the 120s The patient had all typed negative blood units started as well as oxytocin according to the recommendation of the pharmacy Patient provided with a dose of 1 g of tranexamic acid Almost half an hour into the presentation the patient had delivered almost intact placenta and the bleeding was stopped The patient then had an evaluation by the OB doctor Dr. Lambert and he recommended the patient to be transferred The patient after being stable here care was discussed with and he accepted the transfer---[facility] The patient CBC was showing some leukocytosis with discussed the case with Dr. Drew as the patient has no active symptoms mostly secondary to stress reaction to the delivery Lab Data Labs: Lab Results 08/12/24 Range/Units 13:07 WBC 20.5 H (4.0-11.0) 10^3/uL RBC 4.01 L (4.20-5.40) 10^6/uL Hgb 12.4 (12.0-16.0) g/dL Hct 37.1 (36.0-48.0) % MCV 92.5 (81.0-99.0) fL MCH 30.9 (26.7-34.0) pg MCHC 33.4 (29.9-35.2) g/dL RDW 14.2 (11.0-15.0) % Plt Count 540 H (150-450) 10^3/uL MPV 10.8 (9.5-13.5) fL Neut % (Auto) 80.8 H (43.0-75.0) % Lymph % (Auto) 10.5 L (20.5-60.0) % [place] % (Auto) 7.0 (1.7-12.0) % Eos % (Auto) 0.6 L (0.9-7.0) % Baso % (Auto) 0.3 (0.2-2.0) % Neut # (Auto) 16.5 H (1.4-6.5) 10^3/uL Lymph # (Auto) 2.2 (1.2-3.8) 10^3/uL [place] # (Auto) 1.4 H (0.3-0.8) 10^3/uL Eos # (Auto) 0.1 (0.0-0.7) 10^3/uL Baso # (Auto) 0.1 (0.0-0.1) 10^3/uL Abs Immat Gran (auto) 0.17 H (0.00-0.03) 10^3/uL Imm/Tot Granulo (auto) 0.8 H (0.0-0.5) % Sodium 135 L (136-145) mmol/L Potassium 4.0 (3.5-5.1) mmol/L Chloride 103 (98-107) mmol/L Carbon Dioxide 21.5 (21.0-32.0) mmol/L Anion Gap 14.5 BUN 15.0 (7.0-18.0) mg/dL Creatinine 0.57 (0.55-1.02) mg/dL Est GFR ( Amer) >60 (>=60 mL/min/1.73m^2) Est GFR (Non-Af Amer) >60 (>=60 mL/min/1.73m^2) BUN/Creatinine Ratio 26.3 Glucose 94 (74-106) mg/dL Calcium 9.3 (8.5-10.1) mg/dL Blood Type O Positive Antibody Screen Negative Discharge Plan Discharge Chief Complaint: OB/Uterine Contractions Clinical Impression: Encounter for care after unplanned out of hospital delivery, Vaginal bleeding Patient Disposition: [facility] Time of Disposition Decision: 17:33 Discharge location: [facility]
[2024-08-14 06:09] LABS: HBsAg Screen Negative (Negative); HCV Antibody Non Reactive (Non Reactive); HIV Ab/p24 Ag Screen Non Reactive (Non Reactive)
[2024-08-14 12:11] LABS: Rapid Plasma Reagin, Quant Non Reactive titer (NonRea<1:1)
== END 2024-08-12 18:32 | disposition short-term general hospital (02) ==
PROVIDERS: Emergency Provider Emergency Medicine; PCP Internal Medicine
DX: Z39.0 Encounter for care and examination of mother immediately after delivery (principal); O72.1 Other immediate postpartum hemorrhage; Z96.0 Presence of urogenital implants; G82.20 Paraplegia, unspecified; O90.89 Other complications of the puerperium, not elsewhere classified; Z79.899 Other long term (current) drug therapy; O99.335 Smoking (tobacco) complicating the puerperium; F17.200 Nicotine dependence, unspecified, uncomplicated; Z23 Encounter for immunization
CPT/HCPCS: 36415; 36430; 80048; 85025; 86592; 86803; 86850; 86900; 86901; 86923; 87340; 87389; 90471; 90715; 93005; 96361; 96365; 96367; 96372; 96375; 96376; 99285; J2270; J2590; P9016

== ENCOUNTER 2024-09-25 11:42 | Emergency (ER) | payer OTHER, SELFPAY ==
[2024-09-25 11:59] VITALS: BP 134/91; PULSE 96; TEMP 36.6; O2SAT 95; BMI 33.9
--- NOTE | 2024-09-25 12:07 | ED.GENADUL1 ---
HPI HPI - General Adult General Chief complaint: Recheck/Abnormal Lab/Rx Stated complaint: needs catheter put back in Time Seen by Provider: 09/25/24 11:54 Source: patient and family Mode of arrival: Wheelchair Limitations: no limitations History of Present Illness HPI narrative: Patient presented to the ED because her Alfonso came out. Patient states that she has a chronic indwelling Alfonso because she is paraplegic from the waist down. States that last night it came out, so she came to the ER because she needed to be replaced. Has no specific complaints Related Data Home Medications ?Medication ?Instructions ?Recorded ?Confirmed baclofen 20 mg tablet 20 mg PO QID 08/12/24 08/12/24 cholecalciferol (vitamin D3) 50 50 mcg PO DAILY 08/12/24 08/12/24 mcg (2,000 unit) capsule docusate sodium 100 mg capsule 100 mg PO DAILY PRN constipation 08/12/24 08/12/24 (Stool Softener) duloxetine 60 mg capsule,delayed 120 mg PO DAILY 08/12/24 08/12/24 release gabapentin 600 mg tablet 600 mg PO 08/12/24 melatonin 3 mg tablet 3 mg PO QPM PRN sleep 08/12/24 08/12/24 multivitamin no.47-iron fum 27 1 cap PO QAM 08/12/24 08/12/24 mg-folate no.1 1 mg-dha 300 mg capsule (PNV-DHA) nicotine 14 mg/24 hr daily 1 patch topical DAILY 08/12/24 08/12/24 transdermal patch vitamin no.115-iron 29 1 tab PO DAILY 08/12/24 08/12/24 mg-folic acid 1 mg chewable tablet ( 19) Allergies Allergy/AdvReac Type Severity Reaction Status Date / Time cefazolin Allergy Intermediate Verified 09/18/23 10:46 ciprofloxacin (From Cipro) Allergy Intermediate Verified 09/18/23 10:46 Opioid HPI Opioid Management Most Recent Opioid Data: No Data to Display Review of Systems ROS Narrative Negative unless otherwise stated in the HPI PFSH PFSH Social History Smoking status: Current every day smoker Little interest or pleasure in doing things: not at all Feeling down, depressed, or hopeless: not at all Exam Narrative Exam Narrative: General: NAD, AAOx3, no distress Abdomen: Soft, ND/NT. No Alfonso catheter in place Neuro: Baseline paraplegia Constitutional Vital Signs, click to edit/add: Last Vital Signs Temp 97.8 F 09/25/24 11:59 Pulse 96 H 09/25/24 11:59 Resp 18 09/25/24 11:59 BP 134/91 09/25/24 11:59 Pulse Ox 95 09/25/24 11:59 O2 Del Method Room Air 09/25/24 11:59 Course Vital Signs Vital signs: Vital Signs Temperature 97.8 F 09/25/24 11:59 Pulse Rate 96 H 09/25/24 11:59 Respiratory Rate 18 09/25/24 11:59 Blood Pressure 134/91 09/25/24 11:59 Pulse Oximetry 95 09/25/24 11:59 Oxygen Delivery Method Room Air 09/25/24 11:59 Temperature 97.8 F 09/25/24 11:59 Pulse Rate 96 H 09/25/24 11:59 Respiratory Rate 18 09/25/24 11:59 Blood Pressure 134/91 09/25/24 11:59 Pulse Oximetry 95 09/25/24 11:59 Oxygen Delivery Method Room Air 09/25/24 11:59 Medical Decision Making MDM Narrative Medical decision making narrative: Alfonso was replaced in the emergency department. Advanced guidance has been given. Vss, pex is benign at this time. Pt to fu with pcp 1-2 days for reeval, rter should sx worsen, persist or become worrysome in any way. All incidental laboratory studies, EKG, radiologic findings have been noted and discussed with patient. Patient was reevaluated with a benign exam at this time. Pt expressed understanding and agreement with plan of care at this time. Will fu as planned. Pt stable for discharge. Discharge Plan Discharge Chief Complaint: Recheck/Abnormal Lab/Rx Clinical Impression: Chronic indwelling Alfonso catheter Patient Disposition: Home, Self-Care Time of Disposition Decision: 12:43 Condition: Good Prescriptions / Home Meds: No Action baclofen 20 mg tablet 20 mg PO QID cholecalciferol (vitamin D3) 50 mcg (2,000 unit) capsule 50 mcg PO DAILY docusate sodium [Stool Softener] 100 mg capsule 100 mg PO DAILY PRN (Reason: constipation) duloxetine 60 mg capsule,delayed release(DR/EC) 120 mg PO DAILY gabapentin 600 mg tablet 600 mg PO melatonin 3 mg tablet 3 mg PO QPM PRN (Reason: sleep) PNV-DHA 27 mg iron-1 mg -300 mg capsule 1 cap PO QAM nicotine 14 mg/24 hr patch 24 hour 1 patch topical DAILY 19 29 mg iron- 1 mg tablet,chewable 1 tab PO DAILY Print Language: Icelandic Instructions: Alfonso Catheter Placement and Care (ED) Additional Instructions: Follow-up with your PCP in the next 1 to 2 days. Return to the emergency department should symptoms worsen or become worrisome in any way. Referrals: SHALA CHAN [Primary Care Provider] - 1 week
== END 2024-09-25 12:57 | disposition home or self-care (01) ==
PROVIDERS: Emergency Provider Emergency Medicine; PCP Internal Medicine
DX: Z46.6 Encounter for fitting and adjustment of urinary device (principal); G82.20 Paraplegia, unspecified
CPT/HCPCS: 51702; 99284

== ENCOUNTER 2025-06-27 14:38 | Outpatient (OUT) | payer OTHER, SELFPAY ==
--- OUTSIDE RECORDS SUMMARY | 2016-03-27 09:00 | XMS_ITS | Encounter Summary ---
Author Organization [facility] Address [address], [address] [place] [address] Care Team Providers Care Marriage And Family Social Worker Name Role Phone Dana Swan DO Primary Care Provider [phone] Encounter Details Date Type Department Care Team (Late st Contact Info) Description 03/27/2016 9:00 AM EDT Hospital Encounter [facility] [address] [place], [place] [id number] Germain Su MD [address] [place] [address], [address] [place] [address] Social History Tobacco Use Types Packs/Day Years Used Date Smoking Tobacco: Former Cigarettes Q uit: 09/23/2014 Alcohol Use Standard Drinks/Week Comments Yes 0 (1 standard drink = 0.6 oz pur e alcohol) MIXED DRINK 1 A MONTH [place] Depression Scale Answer Date Recorded [place] Depression Scale Total 16 08/15/2024 The thought of harming myself has occurred to me . Never 08/15/2024 Interpersonal Safety Domain Source: IP Abuse Scr eening Answer Date Recorded Physical abuse Denies 08/12/2024 Verbal abuse Denies 08/12/2024 Emotional abuse Denies 08/12/2024 Financial abuse Denies 08/12/2024 Sexual abuse Denies 08/12/2024 Comments No Sex and Gender Information Value Date Recorded Sex Assigned at Not on file Legal Sex Female 6:48 AM EST Gender Identity Not on file Sexual Orientation Not on file documented as of this encounter Plan of Treatment Not on file documented as of this encounter Visit Diagnoses Not on filedocumented in this encounter Additional Health Concerns Infection Onset Date Last Indicated Resolved Time ESBL (Extended Spectrum Beta Lactamase) Comment:E.coli- urine 07/202408/13/2024 08/15/2024 documented as of this encounter Care Teams Marriage And Family Social Worker Relationship Specialty Start Date End Date Dana Swan DO PCP - General Family Medicine 12/03/14 06/08/16 documented as of this encounter
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
--- OUTSIDE RECORDS SUMMARY | 2025-06-27 14:41 | XMS_ITS | Encounter Summary ---
Author Organization [facility] Address [address] [facility] [place] [address] Care Team Providers Care Syrup Filterer Name Role Phone Singh Morse MD Unavailable [phone] Singh Morse MD Primary Care Provider Pato Lambert DO Unavailable Tuesday, Elisa LITHOPRESS OPERATOR Unavailable [phone] Diamond Alvarenga GIS SOFTWARE DEVELOPER Unavailable Sharifa Adams AVIONICS SHOP SUPERVISOR Unavailable [phone] Encounter Details Date Type Department Care Team (Late st Contact Info) Description 08/09/[address] [facility] [address] [facility] 110 [place] [address] Singh Morse MD 112 [facility] 110 [place], [place] [id number] Social History Tobacco Use Types Packs/Day Years [...] week 08/03/2023 How often do you attend methodist or buddhist serv ices? Never 08/03/2023 Do you belong to any clubs o r organizations such as methodist groups, unions, fraternal or athletic groups, or [...] Recorded Patient Health Questionnaire-2 Score 5 08/03/2023 [facility] of Occupat ional Health - Occupational Stress [...] place to sleep or slept in a long term (including now)? No 08/03/2023 Education Answer Date [...] documented as of this encounter Care Teams Syrup Filterer Relationship Specialty Start Date End Date Singh Morse MD [address] [place] [address] [place] [address] PCP - [facility] 01/15/23 01/15/24 Singh Morse MD [address] [place] [address] [place] [address] PCP - General Internal Medicine 04/06/23 Pato Lambert DO [address] [place] [address] [place] [address] PCP - [facility] 04/16/24 10/16/24 Sharifa Adams, AVIONICS SHOP SUPERVISOR [address] [place] [address] [place] [address] PCP - [facility] 10/17/24TuesdayElisa LPN [address] [place] [address] Licensed Practical Nurse Family Medicine 07/04/24 11/06/24 Diamond Alvarenga, GIS SOFTWARE DEVELOPER [address] [place] [address] Live Games Dealer Family Medicine 10/30/24 documented as of this encounter
--- OUTSIDE RECORDS SUMMARY | 2025-06-27 14:41 | XMS_ITS | Encounter Summary ---
Author Organization [facility] Address [address] [facility] [place] [address] Care Team Providers Care Learning Disabilities Teacher Name Role Phone Singh Morse MD Unavailable [phone] Singh Morse MD Primary Care Provider [phone] Pato Lambert DO Unavailable Tuesday, Elisa DIRECTOR OF INSTRUCTIONAL TECHNOLOGY Unavailable [phone] Diamond Alvarenga PAYROLL AND BENEFITS ANALYST Unavailable Sharifa Adams LOG HAUL CHAIN FEEDER Unavailable [phone] Encounter Details Date Type Department Care Team (Late st Contact Info) Description 09/19/2023 [facility] 112 [facility] 110 [place] [address] Singh Morse MD [address] [facility] 110 [place], [place] [id number] Social History Tobacco Use Types Packs/Day Years [...] week 08/03/2023 How often do you attend temple or baptist serv ices? Never 08/03/2023 Do you belong to any clubs o r organizations such as temple groups, unions, fraternal or athletic groups, or [...] Recorded Patient Health Questionnaire-2 Score 5 08/03/2023 [facility] of Occupat ional Health - Occupational Stress [...] place to sleep or slept in a retirement (including now)? No 08/03/2023 Education Answer Date [...] documented as of this encounter Care Teams Learning Disabilities Teacher Relationship Specialty Start Date End Date Singh Morse MD [address] [place] [address] [place] [address] PCP - [facility] 01/15/23 01/15/24 Singh Morse MD [address] [place] [address] [place] [address] PCP - General Internal Medicine 04/06/23 Pato Lambert DO [address] [place] [address] [place] [address] PCP - [facility] 04/16/24 10/16/24 Sharifa Adams, LOG HAUL CHAIN FEEDER [address] [place] [address] [place] [address] PCP - [facility] 10/17/24TuesdayElisa LPN [address] [place] [address] Licensed Practical Nurse Family Medicine 07/04/24 11/06/24 Diamond Alvarenga, PAYROLL AND BENEFITS ANALYST [address] [place] [address] Power Marketer Family Medicine 10/30/24 documented as of this encounter
--- OUTSIDE RECORDS SUMMARY | 2025-06-27 14:41 | XMS_ITS ---
Author Organization [facility] Address [address] [facility] [place] [address] Care Team Providers Care Viscosity Tester Name Role Phone Singh Morse MD Primary Care Provider [phone] Diamond Alvarenga NUTRITIONAL CHEMIST Unavailable [phone] Sharifa Adams SUPERVISOR CLAM BED Unavailable [phone] Chronic Care Management (CCM) Status:Enrolled (Active) Start date:07/04/2024 Enrollment date:07/04/2024 Enrollment reason:Referred by provider Overview 07/04/24, 2:05 PM - Elisatuesday, [employer]- Patient gives verbal consent to be enrolled in CCM Program and understands there could be a bill for this service unless her insurance should change. Case Team Name Relationship Phone Diamond Alvarenga NUTRITIONAL CHEMIST(Responsible Staff) Social Wor ker [phone] Continued Care and Services Coordination
--- OUTSIDE RECORDS SUMMARY | 2025-06-27 14:41 | XMS_ITS | Encounter Summary ---
Author Organization [facility] Address [address] [facility] [place] [address] Care Team Providers Care Point Of Sale Associate Name Role Phone Singh Morse MD Unavailable [phone] Singh Morse MD Primary Care Provider Pato Lambert DO Unavailable Tuesday, Elisa SENIOR NET C DEVELOPER Unavailable [phone] Diamond Alvarenga CLINICAL NEUROPSYCHOLOGIST Unavailable Sharifa Adams PRODUCE TEAM LEAD Unavailable Encounter Details Date Type Department Care Team (Late st Contact Info) Description 08/15/2023 [facility] 112 [facility] 110 [place] [address] Singh Morse MD 112 [facility] 110 [place], [place] [id number] Social History Tobacco Use Types Packs/Day Years [...] week 08/03/2023 How often do you attend jewish or hinduism serv ices? Never 08/03/2023 Do you belong to any clubs o r organizations such as jewish groups, unions, fraternal or athletic groups, or [...] Recorded Patient Health Questionnaire-2 Score 5 08/03/2023 [facility] of Occupat ional Health - Occupational Stress [...] place to sleep or slept in a usp (including now)? No 08/03/2023 Education Answer Date [...] documented as of this encounter Care Teams Point Of Sale Associate Relationship Specialty Start Date End Date Singh Morse MD [address] [place] [address] [place] [address] PCP - [facility] 01/15/23 01/15/24 Singh Morse MD [address] [place] [address] [place] [address] PCP - General Internal Medicine 04/06/23 Pato Lambert DO [address] [place] [address] [place] [address] PCP - [facility] 04/16/24 10/16/24 Sharifa Adams, PRODUCE TEAM LEAD [address] [place] [address] [place] [address] PCP - [facility] 10/17/24TuesdayElisa LPN [address] [place] [address] Licensed Practical Nurse Family Medicine 07/04/24 11/06/24 Diamond Alvarenga, CLINICAL NEUROPSYCHOLOGIST [address] [place] [address] First Aid Officer Family Medicine 10/30/24 documented as of this encounter
--- OUTSIDE RECORDS SUMMARY | 2025-06-27 14:41 | XMS_ITS | Encounter Summary ---
Author Organization [facility] Address [address] [facility] [place] [address] Care Team Providers Care Superintendent Maintenance Name Role Phone Singh Morse MD Unavailable [phone] Singh Morse MD Primary Care Provider [phone] Pato Lambert DO Unavailable Tuesday, Elisa DESILVERIZER Unavailable [phone] Diamond Alvarenga AUTO SERVICE MECHANIC Unavailable Sharifa Adams BOBBIN CLEANER HAND Unavailable [phone] Encounter Details Date Type Department Care Team (Late st Contact Info) Description 07/20/2023 Abstract [facility] 112 [facility] 110 [place] [address] Singh Morse MD 112 [facility] 110 [place], [place] [address] Social History Tobacco Use Types Packs/Day Years Used Date Smoking Tobacco: Never Assessed Comments Unknown Sex and Gender Information Value [...] Diagnoses Not on filedocumented in this encounter Care Teams Superintendent Maintenance Relationship Specialty Start Date End Date Singh Morse MD [address] [place] [address] [place] [address] PCP - [facility] 01/15/23 01/15/24 Singh Morse MD [address] [place] [address] [place] [address] PCP - General Internal Medicine 04/06/23 Pato Lambert DO [address] [place] [address] Dr [place]lye [place], [place] [address] PCP - [facility] 04/16/24 10/16/24 Sharifa Adams, BOBBIN CLEANER HAND [address] [place] [address] [place] [address] PCP - [facility] 10/17/24TuesdayElisa LPN [address] [place] [address] Licensed Practical Nurse Family Medicine 07/04/24 11/06/24 Diamond Alvarenga, [place] [address] [place] [address] Salesperson Sheet Music Family Medicine 10/30/24 documented as of this encounter
--- OUTSIDE RECORDS SUMMARY | 2025-06-27 14:41 | XMS_ITS | Encounter Summary ---
Author Organization [facility] Address [address] [facility] [place] [address] Care Team Providers Care Skein Yarn Dyer Helper Name Role Phone Singh Morse MD Unavailable [phone] Singh Morse MD Primary Care Provider [phone] Pato Lambert DO Unavailable Tuesday, Elisa NECK BAND OPERATOR Unavailable [phone] Diamond Alvarenga MOSAIC WORKER Unavailable [phone] Sharifa Adams NP Unavailable [phone] Encounter Details Date Type Department Care Team (Late st Contact Info) Description 08/02/2023 Orders Only [facility] [address] [facility] [address] [place] [address] Jessica Hernandez, MINT MACHINE OPERATOR [address] [place], [place] [id number] Social History Tobacco Use Types Packs/Day Years Used Date Smoking Tobacco: Every Day Cigarettes Comments:How many cigarettes a day do you [...] week 08/03/2023 How often do you attend protestant or mu-ism serv ices? Never 08/03/2023 Do you belong to any clubs o r organizations such as protestant groups, unions, fraternal or athletic groups, or [...] Recorded Patient Health Questionnaire-2 Score 5 08/03/2023 [facility] - Occupational Stress Questionnaire Answer [...] a senior living (including now)? No 08/03/2023 Comments Unknown Sex and Gender Information Value Date Recorded Sex Assigned at Female 02/13/2024 4:25 PM EDT Legal Sex Female 7:30 PM EDT Gender Identity Female 12/29/2022 7:30 PM EDT Sexual Orientation Choose not to disclose 2023 4:25 PM EDT documented as of this encounter Functional Status * Audit-C Score Answer Date of Assessment Author 1 08/03/2023 2:54 PM EDT [place] NP * Question Answer Date of Assessment Author Q1: How often do you have a drink containing alcohol? Monthly or less 08/03/2023 2:54 PM EDT Jessica Hernandez NP Q2: How many drinks containing alcohol do you have on a typical day when you are drinking? 1 or 2 08/03/2023 2:54 PM Jessica David NP Q3: How often do you have six or more drinks on one occasion? Never 08/03/2023 2:54 PM Jessica David NP * Over the past 2 weeks, how often have you been bothered by any of the following problems? Question Answer Date of Assessment Author Little interest or pleasure in doing things More than half the days 08/03/2023 2:58 PM Jessica David NP Feeling down, depressed, or hopeless Nearly every day 08/03/2023 2:58 PM Jessica David NP Patient Health Questionnaire-2 Score 5 08/03/2023 2:58 PM Jessica David NP * Question Answer Date of Assessment Author Trouble falling or staying asleep, or sleeping too much More than half the days 08/03/2023 2:58 PM Jessica David NP Feeling tired or having little energy Nearly every day 08/03/2023 2:58 PM Jessica David NP Poor appetite or overeating Several days 08/03/2023 2:58 PM Jessica David NP Feeling bad about yourself - or that you are a failure or have let yourself or your family down Nearly every day 08/03/2023 2:58 PM Jessica David NP Trouble concentrating on things, such as reading the newspaper or watching television Not at all 08/03/2023 2:58 PM Jessica David NP Moving or speaking so slowly that other people could have noticed? Or the opposite - being so fidgety or restless that you have been moving around a lot more than usual. Not at all 08/03/2023 2:58 PM Jessica David NP Thoughts that you would be better off or hurting yourself in some way Not at all 08/03/2023 2:58 PM Jessica David NP Patient Health Questionnaire-9 Score 14 08/03/2023 2:58 PM EDT Hernandez, Jessica L, MINT MACHINE OPERATOR * If you checked off any problems on this questionnaire so far, Question Answer Date of Assessment Author How difficult have these problems made it for you to do your work, take care of things at home, or get along with other people? Somewhat difficult 08/03/2023 2:58 PM EDT Jessica Hernandez MINT MACHINE OPERATOR documented as of this encounter Plan of Treatment Not on file documented as of this encounter Visit Diagnoses Not on filedocumented in this encounter Care Teams Skein Yarn Dyer Helper Relationship Specialty Start Date End Date Singh Morse MD [address] [place] [address] PCP - [facility] 01/15/23 01/15/24 Singh Morse MD [address] [place] [address] PCP - General Internal Medicine 04/06/23 Pato Lambert DO [address] [place] [address] Leslye Catalan [place], [place] [address] PCP - [facility] 04/16/24 10/16/24 Sharifa Adams NP [address] [place] [address] [place] [address] PCP - [facility] 10/17/24TuesdayElisa LPN [address] [place] [address] Licensed Practical Nurse Family Medicine 07/04/24 11/06/24 Diamond Alvarenga, [place] [address] [place] [address] Scaffolding Helper Family Medicine 10/30/24 documented as of this encounter
--- OUTSIDE RECORDS SUMMARY | 2025-06-27 14:41 | XMS_ITS | Encounter Summary ---
Author Organization [facility] Address [address] [facility] [place] [address] Care Team Providers Care Cycle Liaison Name Role Phone Singh Morse MD Unavailable [phone] Singh Morse MD Primary Care Provider Pato Lambert DO Unavailable Tuesday, Elisa WET PAN MIXER Unavailable [phone] Diamond Alvarenga ANKLE PATCH MOLDER Unavailable [phone] Sharifa Adams MOTORCYCLE FABRICATOR Unavailable Encounter Details Date Type Department Care Team (Late st Contact Info) Description 08/09/2023 [facility] 112 [facility] 110 [place] [address] Signh Morse MD 112 [facility] 110 [place], [place] [address] Social History Tobacco Use Types Packs/Day Years [...] week 08/03/2023 How often do you attend sabianism or holiness serv ices? Never 08/03/2023 Do you belong to any clubs o r organizations such as sabianism groups, unions, fraternal or athletic groups, or [...] Recorded Patient Health Questionnaire-2 Score 5 08/03/2023 [facility] of Occupat ional Health - Occupational [...] place to sleep or slept in a fpc (including now)? No 08/03/2023 Education Answer Date [...] documented as of this encounter Care Teams Cycle Liaison Relationship Specialty Start Date End Date Singh Morse MD [address] [place] [address] PCP - [facility] 01/15/23 01/15/24 Singh Morse MD [address] [place] [address] PCP - General Internal Medicine 04/06/23 Pato Lambert DO [address] [place] [address] [place] [address] PCP - [facility] 04/16/24 10/16/24 Sharifa Adams, MOTORCYCLE FABRICATOR [address] [place] [address] PCP - [facility] 10/17/24TuesdayElisa LPN [address] [place] [address] Licensed Practical Nurse Family Medicine 07/04/24 11/06/24 Diamond Alvarenga, ANKLE PATCH MOLDER [address] [place] [address] Hospice Music Therapist Family Medicine 10/30/24 documented as of this encounter
--- OUTSIDE RECORDS SUMMARY | 2025-06-27 14:41 | XMS_ITS | Encounter Summary ---
Author Organization [facility] Address [address] [facility] [place] [place] [address] Care Team Providers Care Bad Credit Collector Name Role Phone Singh Morse MD Unavailable [phone] Singh Morse MD Primary Care Provider Pato Lambert DO Unavailable Tuesday, Elisa CHIEF EXECUTIVE OFFICER Unavailable [phone] Diamond Alvarenga MACHINE WASHER Unavailable [phone] Sharifa Adams ROLL HAULER Unavailable Encounter Details Date Type Department Care Team (Late st Contact Info) Description 08/09/2023 [facility] 112 [facility] 110 [place] [address] Singh Morse MD 112 [facility] 110 [place], [place] [id number] Social History Tobacco Use Types Packs/Day Years [...] week 08/03/2023 How often do you attend tenriism or confucianist serv ices? Never 08/03/2023 Do you belong to any clubs o r organizations such as tenriism groups, unions, fraternal or athletic groups, or [...] Recorded Patient Health Questionnaire-2 Score 5 08/03/2023 [facility] of Occupat ional Health - Occupational Stress [...] documented as of this encounter Care Teams Bad Credit Collector Relationship Specialty Start Date End Date Singh Morse MD [address] [place] [address] PCP - [facility] 01/15/23 01/15/24 Singh Morse MD [address] [place] [address] PCP - General Internal Medicine 04/06/23 Pato Lambert DO [address] [place] [address] [place] [address] PCP - [facility] 04/16/24 10/16/24 Sharifa Adams, ROLL HAULER [address] [place] [address] PCP - [facility] 10/17/24TuesdayElisa LPN [address] [place] [address] Licensed Practical Nurse Family Medicine 07/04/24 11/06/24 Diamond Alvarenga, MACHINE WASHER [address] [place] [address] Shape Brick Molder Family Medicine 10/30/24 documented as of this encounter
--- OUTSIDE RECORDS SUMMARY | 2025-06-27 14:41 | XMS_ITS | Encounter Summary ---
Author Organization [facility] Address [address] [facility] [place] [address] Care Team Providers Care Search Engine Optimization Strategist Name Role Phone Singh Morse MD Unavailable [phone] Singh Morse MD Primary Care Provider Pato Lambert DO Unavailable Tuesday, Elisa HOUSEKEEPING SUPERVISOR HOTEL Unavailable [phone] Diamond Alvarenga PUBLIC HEALTH DIRECTOR Unavailable Sharifa Adams METAL BONDER Unavailable Encounter Details Date Type Department Care Team (Late st Contact Info) Description 09/01/2023 [facility] [address] [facility] 110 [place] [id number] Singh Morse MD 112 [facility] 110 [place], [place] [address] Social History Tobacco Use Types Packs/Day Years [...] week 08/03/2023 How often do you attend moravian or confucianism serv ices? Never 08/03/2023 Do you belong to any clubs o r organizations such as moravian groups, unions, fraternal or athletic groups, or [...] Recorded Patient Health Questionnaire-2 Score 5 08/03/2023 [facility] of Occupat ional Health - Occupational [...] place to sleep or slept in a long-term (including now)? No 08/03/2023 Education Answer Date [...] documented as of this encounter Care Teams Search Engine Optimization Strategist Relationship Specialty Start Date End Date Singh Morse MD [address] [place] [address] [place] [address] PCP - [facility] 01/15/23 01/15/24 Singh Morse MD [address] [place] [address] PCP - General Internal Medicine 04/06/23 Pato Lambert DO [address] [place] [address] [place] [address] PCP - [facility] 04/16/24 10/16/24 Sharifa Adams, METAL BONDER [address] [place] [address] [place] [address] PCP - [facility] 10/17/24TuesdayElisa LPN [address] [place] [address] Licensed Practical Nurse Family Medicine 07/04/24 11/06/24 Diamond Alvarenga, PUBLIC HEALTH DIRECTOR [address] [place] [address] Lens Assorter Family Medicine 10/30/24 documented as of this encounter
--- OUTSIDE RECORDS SUMMARY | 2025-06-27 14:41 | XMS_ITS | Encounter Summary ---
Author Organization [facility] Address [address] [facility] [place] [address] Care Team Providers Care Processing Technician Name Role Phone Singh Morse MD Unavailable [phone] Singh Morse MD Primary Care Provider [phone] Pato Lambert DO Unavailable Tuesday, Elisa TILE MOLDER Unavailable [phone] Diamond Alvarenga REMITTANCE CLERK Unavailable Sharifa Adams PLATE PAINTER Unavailable Encounter Details Date Type Department Care Team (Late st Contact Info) Description 08/09/2023 [facility] 112 [facility] 110 [place] [address] Singh Morse MD 112 [facility] 110 [place], [place] [address] Social History Tobacco Use Types Packs/Day Years [...] week 08/03/2023 How often do you attend islam or christian serv ices? Never 08/03/2023 Do you belong to any clubs o r organizations such as islam groups, unions, fraternal or athletic groups, or [...] Recorded Patient Health Questionnaire-2 Score 5 08/03/2023 [facility] of Occupat ional Health - [...] place to sleep or slept in a assisted (including now)? No 08/03/2023 Education Answer Date [...] documented as of this encounter Care Teams Processing Technician Relationship Specialty Start Date End Date Singh Morse MD [address] [place] [address] PCP - [facility] 01/15/23 01/15/24 Singh Morse MD [address] [place] [address] PCP - General Internal Medicine 04/06/23 Pato Lambert DO [address] [place] [address] [place] [address] PCP - [facility] 04/16/24 10/16/24 Sharifa Adams, PLATE PAINTER [address] [place] [address] PCP - [facility] 10/17/24TuesdayElisa LPN [address] [place] [address] Licensed Practical Nurse Family Medicine 07/04/24 11/06/24 Diamond Alvarenga, REMITTANCE CLERK [address] [place] [address] Can Cleaner Family Medicine 10/30/24 documented as of this encounter
--- OUTSIDE RECORDS SUMMARY | 2025-06-27 14:41 | XMS_ITS | Encounter Summary ---
Author Organization [facility] Address [address] [facility] [place] [address] Care Team Providers Care Automotive Quality Manager Name Role Phone Singh Morse MD Unavailable [phone] Singh Morse MD Primary Care Provider Pato Lambert DO Unavailable Tuesday, Elisa PATCH WORKER Unavailable [phone] Diamond Alvarenga DUST BOX WORKER Unavailable Sharifa Adams GRINDING OPERATOR Unavailable Encounter Details Date Type Department Care Team (Late st Contact Info) Description 06/29/2023 Abstract [facility] [place] [facility] 112 [facility] 110 [place] [address] Singh Morse MD 112 [facility] 110 [place], [place] [address] Social History Tobacco Use Types Packs/Day Years [...] on filedocumented in this encounter Care Teams Automotive Quality Manager Relationship Specialty Start Date End Date Singh Morse MD [address] [place] [address] PCP - [facility] 01/15/23 01/15/24 Singh Morse MD [address] [place] [address] PCP - General Internal Medicine 04/06/23 Pato Lambert DO [address] [place] [address] Dr Leslye [place], [place] [address] PCP - [facility] 04/16/24 10/16/24 Sharifa Adams, GRINDING OPERATOR [address] [place] [address] PCP - [facility] 10/17/24TuesdayElisa LPN [address] [place] [address] Licensed Practical Nurse Family Medicine 07/04/24 11/06/24 Diamond Alvarenga, [place] [address] [place] [address] Coding Quality Analyst Family Medicine 10/30/24 documented as of this encounter
--- OUTSIDE RECORDS SUMMARY | 2025-06-27 14:42 | XMS_ITS | Encounter Summary ---
Author Organization [facility] Address [address] [place] [address] Care Team Providers Care Store Hand Name Role Phone Singh Morse MD Primary Care Provider Diamond Alvarenga PRODUCTION ARTIST Unavailable [phone] Sharifa Adams COMPUTER PERIPHERAL EQUIPMENT OPERATOR Unavailable Encounter Details Date Type Department Care Team (Late st Contact Info) Description 06/19/2025 Telephone [facility] [address] [facility] 110 [place] [address] Singh Morse MD 112 [facility] 110 [place] [address] Social History Tobacco Use Types Packs/Day Years [...] family, friends, or neighbors? Once a week 03/22/2024 How often do you get together with friends or re latives? Never 03/22/2024 How often do you attend mandaeism or restorationist serv ices? Never 03/22/2024 Do you belong to any clubs o r organizations such as mandaeism groups, unions, fraternal or athletic groups, or school groups? No 03/22/2024 How often do you attend meet ings of the clubs or organizations you belong to? Never 03/22/2024 Are you , , di vorced, , never , or living with a partner? 03/22/2024 AUDIT-C Answer Date Recorded Q1: How often do you have a drink containing alc ohol? Monthly or less 03/22/2024 Q2: How many drinks containi ng alcohol do you have on a typical day when you are drinking? 1 or 2 03/22/2024 Q3: How often do you have si x or more drinks on one occasion? Less than monthly 03/22/2024 Overall Financial Resource Strain (CARDIA) Answe r Date Recorded How hard is it for you to pa y for the very basics like food, housing, medical care, and heating? Hard 03/22/2024 PHQ-2 Answer Date Recorded Patient Health Questionnaire-2 Score 0 04/04/2025 [facility] of Occupat ional Health - Occupational Stress Questionnaire Answer Date Recorded Do you feel stress - tense, restless, nervous, or anxious, or unable to sleep at night because your mind is troubled all the time - these days? Rather much 03/22/2024 Exercise Vital Sign Answer Date Recorde d On average, how many days pe r week do you engage in moderate to strenuous exercise (like a brisk walk)? 0 days 03/22/2024 On average, how many minutes do you engage in exercise at this level? 0 min 03/22/2024 Hunger Vital Sign Answer Date Recorded Within the past 12 months, y ou worried that your food would run out before you got the money to buy more. Often true 03/22/20 24 Within the past 12 months, t he food you bought just didn't last and you didn't have money to get more. Often true 03/22/2024 PRAPARE - Transportation Answer Date Re corded In the past 12 months, has l ack of transportation kept you from medical appointments or from getting medications? Yes 03/2024 In the past 12 months, has l ack of transportation kept you from meetings, work, or from getting things needed for daily living? Yes 03/22/2024 Housing Stability Vital Sign Answer Jose e Recorded In the last 12 months, was t here a time when you were not able to pay the mortgage or rent on time? No 03/22/2024 In the last 12 months, how many places have you lived? 1 03/22/2024 In the last 12 months, was t here a time when you did not have a steady place to sleep or slept in a usp (including now)? No 03/22/2024 Education Answer Date Recorded What is the [...] PM EDT documented as of this encounter Miscellaneous Notes * Telephone Encounter - TORSTEN Lopez - 06/19/2025 4:23 PM EDT Resent Oxycodone to [facility]. * Telephone Encounter - Cyndi Bills - 06/19/2025 9:37 AM EDT Please resent rx to [facility] due to ana being out of stock documented in this encounter Plan of Treatment Not on file documented as of this encounter Visit Diagnoses Diagnosis Panic attacks Panic disorder without agoraphobia Other chronic pain documented in this encounter Additional Health Concerns Assessment Noted Time PHQ-9 Depression Total Score: 19 02/08/2 024 3:25 PM EDT documented as of this encounter Care Teams Store Hand Relationship Specialty Start Date End Date Singh Morse MD [address] [facility] 110 [place] [address] PCP - General Internal Medicine 04/06/23 Sharifa Adams NP [address] [facility] 110 [place] [address] PCP - [facility] 10/17/24 Diamond Alvarenga, [place] [address] [place] [address] Utilities Service Investigator Family Medicine 10/30/24 documented as of this encounter
--- OUTSIDE RECORDS SUMMARY | 2025-06-27 14:42 | XMS_ITS | Encounter Summary ---
Author Organization [facility] Address [address] [facility] [address] Care Team Providers Care Chief Safety Officer Name Role Phone Singh Morse MD Unavailable [phone] Singh Morse MD Primary Care Provider [phone] Pato Lambert DO Unavailable Tuesday, Elisa TELEPHONE INSTALLER Unavailable [phone] Diamond Alvarenga COUNSELOR CAMP Unavailable Sharifa Adams ELECTRODYNAMICIST Unavailable Encounter Details Date Type Department Care Team (Late st Contact Info) Description 03/16/2023 Abstract [facility] [place] [facility] 112 [facility] 110 [place] [address] Singh Morse MD 112 [facility] 110 [place], [place] [address] Social History Tobacco Use Types Packs/Day Years [...] on filedocumented in this encounter Care Teams Chief Safety Officer Relationship Specialty Start Date End Date Singh Morse MD [address] [place] [address] PCP - [facility] 01/15/23 01/15/24 Singh Morse MD [address] [place] [address] PCP - General Internal Medicine 04/06/23 Pato Lambert DO [address] [place] [address] Dr Leslye [place], [place] [address] PCP - [facility] 04/16/24 10/16/24 Sharifa Adams, ELECTRODYNAMICIST [address] [place] [address] PCP - [facility] 10/17/24TuesdayElisa LPN [address] [place] [address] Licensed Practical Nurse Family Medicine 07/04/24 11/06/24 Diamond Alvarenga, [place] [address] [place] [address] Police Chief Deputy Family Medicine 10/30/24 documented as of this encounter
--- OUTSIDE RECORDS SUMMARY | 2025-06-27 14:42 | XMS_ITS | Encounter Summary ---
Author Organization [facility] Address [address] [facility] [place] [place] [address] Care Team Providers Care Materials Associate Name Role Phone Singh Morse MD Unavailable [phone] Singh Morse MD Primary Care Provider Pato Lambert DO Unavailable Tuesday, Elisa FURNACE FITTER Unavailable [phone] Diamond Alvarenga ASSEMBLY LINE MACHINE OPERATOR Unavailable Sharifa Adams DIRECTOR CARDIOLOGY Unavailable Encounter Details Date Type Department Care Team (Late st Contact Info) Description 03/24/2023 Abstract [facility] [place] [facility] 112 [facility] 110 [place] [address] Singh Morse MD 112 [facility] 110 [place], [place] [address] Social History Tobacco Use Types Packs/Day Years [...] on filedocumented in this encounter Care Teams Materials Associate Relationship Specialty Start Date End Date Singh Morse MD [address] [place] [address] PCP - [facility] 01/15/23 01/15/24 Singh Morse MD [address] [place] [address] [place] [address] PCP - General Internal Medicine 04/06/23 Pato Lambert DO [address] [place] [address] Dr Leslye [place]an [place], [place] [address] PCP - [facility] 04/16/24 10/16/24 Sharifa Adams, DIRECTOR CARDIOLOGY [address] [place] [address] [place] [address] PCP - [facility] 10/17/24TuesdayElisa LPN [address] [place] [address] Licensed Practical Nurse Family Medicine 07/04/24 11/06/24 Diamond Alvarenga, [place] [address] [place] [address] Mercerizer Machine Operator Family Medicine 10/30/24 documented as of this encounter
--- OUTSIDE RECORDS SUMMARY | 2025-06-27 14:42 | XMS_ITS | Encounter Summary ---
Author Organization [facility] Address [address] [place] [address] Care Team Providers Care Claims Adjuster Name Role Phone Singh Morse MD Primary Care Provider Diamond Alvarenga OFFICE CLERK Unavailable [phone] Sharifa Adams WHEY DEPARTMENT OPERATOR Unavailable Encounter Details Date Type Department Care Team (Late st Contact Info) Description 02/05/2025 Abstract [facility] 112 [facility] 110 [place] [address] Singh Morse MD 112 [facility] 110 [place] [address] Social History Tobacco Use Types [...] Never 03/22/2024 How often do you attend buddhist or latter day serv ices? Never 03/22/2024 Do you belong to any clubs o r organizations such as buddhist groups, unions, fraternal or athletic groups, or [...] Answer Date Recorded Patient Health Questionnaire-2 Score 6 02/09/2024 [facility] [place] of Occupat ional Health - Occupational Stress [...] place to sleep or slept in a mcc (including now)? No 03/22/2024 Education Answer Date [...] Noted Time PHQ-9 Depression Total Score: 19 02/08/ 024 3:25 PM EDT documented as of this encounter Care Teams Claims Adjuster Relationship Specialty Start Date End Date Singh Morse MD 112 [place] [address] PCP - General Internal Medicine 04/06/23 Sharifa Adams, WHEY DEPARTMENT OPERATOR 112 [facility] 110 [place] [address] PCP - [facility] 10/17/24 Diamond Alvarenga, [place] [address] [place] [address] Physicians Assistant Family Medicine 10/30/24 documented as of this encounter
--- OUTSIDE RECORDS SUMMARY | 2025-06-27 14:42 | XMS_ITS | Encounter Summary ---
Author Organization [facility] Address [address] [place] [address] Care Team Providers Care Creative Technologist Name Role Phone Singh Morse MD Primary Care Provider [phone] Diamond Alvarenga TRANSFUSION AIDE Unavailable [phone] Sharifa Adams OIL DEVELOPER Unavailable Encounter Details Date Type Department Care Team (Late st Contact Info) Description 03/04/2025 Abstract [facility] 112 [facility] 110 [place] [address] Singh Morse MD 112 [facility] 110 [place] [address] Social History Tobacco Use Types [...] Never 03/22/2024 How often do you attend spiritism or jain serv ices? Never 03/22/2024 Do you belong to any clubs o r organizations such as spiritism groups, unions, fraternal or athletic groups, or [...] Recorded Patient Health Questionnaire-2 Score 6 02/09/2024 [facility] [place] of Occupat ional Health - Occupational Stress [...] in a senior living (including now)? No 03/22/2024 Education Answer Date [...] documented as of this encounter Care Teams Creative Technologist Relationship Specialty Start Date End Date Singh Morse MD 112 [place] [address] PCP - General Internal Medicine 04/06/23 Sharifa Adams, OIL DEVELOPER 112 [facility] 110 [place] [address] PCP - [facility] 10/17/24 Diamond Alvarenga, [place] [address] [place] [address] Supervisor Drying Family Medicine 10/30/24 documented as of this encounter
--- OUTSIDE RECORDS SUMMARY | 2025-06-27 14:42 | XMS_ITS | Encounter Summary ---
Author Organization [facility] Address [address] [place] [address] Care Team Providers Care Chefs Name Role Phone Singh Morse MD Primary Care Provider [phone] Diamond Alvarenga FOLDED TOWEL MACHINE OPERATOR Unavailable [phone] Sharifa Adams SKY DIVER Unavailable [phone] Reason for Visit * Reason Onset Date Comments Med Refill 06/18/2025 Encounter Details Date Type Department Care Team (Late st Contact Info) Description 06/18/2025 Refill [facility] 112 [facility] 110 [place] [address] Mely Wayne, TORSTEN 112 [facility] 110 [place], [place] [id number] Panic attacks ; Other chronic pain Social History Tobacco Use Types Packs/Day Years [...] Never 03/22/2024 How often do you attend mandaen or mandaeism serv ices? Never 03/22/2024 Do you belong to any clubs o r organizations such as mandaen groups, unions, fraternal or athletic groups, or [...] Recorded Patient Health Questionnaire-2 Score 0 04/04/2025 [facility] of Occupat ional Health - Occupational Stress [...] to sleep or slept in a senior care (including now)? No 03/22/2024 Education Answer Date [...] encounter Miscellaneous Notes * Telephone Encounter - Lukas Finn MD - 06/18/2025 4:25 PM EDT Covering for Dr. Morse PDMP reviewed * Telephone Encounter - POP TRAN - 06/18/2025 1:12 PM EDT OV 04/04/25 RF 05/20/25 documented in this encounter Plan of Treatment Not on file documented as of this encounter Visit Diagnoses Diagnosis Panic attacks Panic disorder without agoraphobia Other chronic pain documented in this encounter Additional Health Concerns Assessment Noted Time PHQ-9 Depression Total Score: 02/08/2 024 3:25 PM EDT documented as of this encounter Care Teams Chefs Relationship Specialty Start Date End Date Singh Morse MD [address] [facility] 110 [place], [place] [id number] PCP - General Internal Medicine 04/06/23 Sharifa Adams NP [address] [facility] 110 [place] [address] PCP - [facility] 10/17/24 Diamond Alvarenga, [place] [address] [place] [address] Third Hand Family Medicine 10/30/24 documented as of this encounter
--- OUTSIDE RECORDS SUMMARY | 2025-06-27 14:42 | XMS_ITS | Encounter Summary ---
Author Organization [facility] Address [address] [facility] [place] [address] Care Team Providers Care Single Needle Tufting Machine Operator Name Role Phone Singh Morse MD Unavailable [phone] Singh Morse MD Primary Care Provider Pato Lambert DO Unavailable Tuesday, Elisa CURATOR OF MANUSCRIPTS Unavailable [phone] Diamond Alvarenga LOGGING ASSISTANT Unavailable Sharifa Adams IT INFRASTRUCTURE ARCHITECT Unavailable Encounter Details Date Type Department Care Team (Late st Contact Info) Description 04/13/2023 Abstract [facility] [place] [facility] 112 [facility] 110 [place] [address] Singh Morse MD 112 [facility] 110 [place], [place] [address] Social History Tobacco Use Types Packs/Day Years [...] on filedocumented in this encounter Care Teams Single Needle Tufting Machine Operator Relationship Specialty Start Date End Date Singh Morse MD [address] [place] [address] [place] [address] PCP - [facility] 01/15/23 01/15/24 Singh Morse MD [address] [place] [address] PCP - General Internal Medicine 04/06/23 Pato Lambert DO [address] [place] [address] Dr Leslye [place]an [place], [place] [address] PCP - [facility] 04/16/24 10/16/24 Sharifa Adams, IT INFRASTRUCTURE ARCHITECT [address] [place] [address] PCP - [facility] 10/17/24TuesdayElisa LPN [address] [place] [address] Licensed Practical Nurse Family Medicine 07/04/24 11/06/24 Diamond Alvarenga, [place] [address] [place] [address] Geography Teacher Family Medicine 10/30/24 documented as of this encounter
--- OUTSIDE RECORDS SUMMARY | 2025-06-27 14:42 | XMS_ITS | Encounter Summary ---
Author Organization [facility] Address [address] [place] [address] Care Team Providers Care Auto Research Engineer Name Role Phone Dalton Saez MD Unavailable [phone] Nathalia Justice MD Unavailable [phone] Tracy Jacobsen FINGERNAIL FORMER-GOLF BALL MARKER Unavailable [phone] Evelina Durham FINGERNAIL FORMER-GOLF BALL MARKER Unavailable [phone] Encounter Details Date Type Department Care Team (Late st Contact Info) Description 04/15/2022 Abstract PATIENT ACUITY SCORE Social History Tobacco Use Types Packs/Day Years Used Date Smoking Tobacco: Every Day Cigarettes Last attempted to quit: 03/21/2020 Smokeless Tobacco: Never Comments:09/2014 quit smokin g; started again Alcohol Use Standard Drinks/Week Comments Yes 0 (1 standard drink = 0.6 oz pur e alcohol) rare AUDIT-C Answer Date Recorded Q1: How often do you have a drink containing alc ohol? Monthly or less 03/21/2020 Average Number of Drinks Not on file 020 Frequency of Binge Drinking Not on file 02/2020 Substance Use Types Use/Week Comments No Comments Unknown Sex and Gender Information Value Date Recorded Sex Assigned at Female 09/21/2021 3:31 PM EST Legal Sex Female 1:40 PM EDT Gender Identity Female 09/21/2021 3:31 PM EST Sexual Orientation Not on file documented as of this encounter Functional Status * Hearing impairment? Answer Date of Assessment Author No 07/11/2015 6:18 PM EDT Roxana Krueger RN * Visual impairment? Answer Date of Assessment Author No 07/11/2015 6:18 PM EDT Roxana Krueger RN * Gait/Transfer impairment? Answer Date of Assessment Author Yes 07/11/2015 6:18 PM EDT Roxana Krueger RN * ADL impairment? Answer Date of Assessment Author Yes 07/11/2015 6:18 PM MARCIALT Roxana Krueger RN * Difficulty with errands? Answer Date of Assessment Author No 07/11/2015 6:18 PM Roxana Arreaga RN documented as of this encounter Mental Status * Cognitive difficulty? Answer Entry Date Author No 07/11/2015 6:18 PM MARCIALT Roxana Krueger RN documented in this encounter Plan of Treatment Not on file documented as of this encounter Visit Diagnoses Not on filedocumented in this encounter Care Teams Auto Research Engineer Relationship Specialty Start Date End Date Dalton Saez MD [address] [place] [address] Physician Orthopaedic Surgery 07/22/20 Nathalia Justice MD [address] [place] [address] Physician Infectious Diseases 07/22/20 Tracy Jacobsen APRN-ELIZABETH [address] [place], [place] [id number] MECHANICAL SYSTEMS DESIGN ENGINEER Infectious Diseases 03/20/21 Evelina Durham APRN-ELIZABETH [address] [place], [place] [id number] MECHANICAL SYSTEMS DESIGN ENGINEER Infectious Diseases 05/22/21 documented as of this encounter
--- OUTSIDE RECORDS SUMMARY | 2025-06-27 14:42 | XMS_ITS | Encounter Summary ---
Author Organization [facility] Address [address] [place] [address] Care Team Providers Care Acid Cleaner Name Role Phone Singh Morse MD Primary Care Provider Diamond Alvarenga MANAGER SAS Unavailable [phone] Sharifa Adams WINCH OPERATOR Unavailable Encounter Details Date Type Department Care Team (Late st Contact Info) Description 05/29/[address] [facility] [address] [facility] 110 [place] [id number] Singh Morse MD 112 [facility] 110 [place] [address] Social History Tobacco Use Types [...] Never 03/22/2024 How often do you attend mosque or holiness serv ices? Never 03/22/2024 Do you belong to any clubs o r organizations such as mosque groups, unions, fraternal or athletic groups, or [...] Recorded Patient Health Questionnaire-2 Score 0 04/04/2025 [facility] [place] of Occupat ional Health - Occupational Stress [...] place to sleep or slept in a nursing home (including now)? No 03/22/2024 Education Answer Date [...] documented as of this encounter Care Teams Acid Cleaner Relationship Specialty Start Date End Date Singh Morse MD [address] [place] [address] PCP - General Internal Medicine 04/06/23 Sharifa Adams, WINCH OPERATOR 112 [facility] 110 [place] [address] PCP - [facility] 10/17/24 Diamond Alvarenga, [place] [address] [place] [address] Visual Stylist Family Medicine 10/30/24 documented as of this encounter
--- OUTSIDE RECORDS SUMMARY | 2025-06-27 14:42 | XMS_ITS | Encounter Summary ---
Author Organization [facility] Address [address] [place] [address] Care Team Providers Care Automotive Upholsterer Name Role Phone Singh Morse MD Primary Care Provider Diamond Alvarenga MOLECULAR SPECTROSCOPIST Unavailable [phone] Sharifa Adams RECREATION THERAPY AIDES TEACHER Unavailable [phone] Encounter Details Date Type Department Care Team (Late st Contact Info) Description 05/29/2025 Abstract [facility] [address] [facility] 110 [place] [id number] Singh Morse MD 112 [facility] 110 [place] [address] Social History Tobacco Use Types [...] Never 03/22/2024 How often do you attend shinto or christianity serv ices? Never 03/22/2024 Do you belong to any clubs o r organizations such as shinto groups, unions, fraternal or athletic groups, or [...] Recorded Patient Health Questionnaire-2 Score 0 04/04/2025 [facility] [place] of Occupat ional Health - Occupational Stress [...] documented as of this encounter Care Teams Automotive Upholsterer Relationship Specialty Start Date End Date Singh Morse MD [address] [place] [address] PCP - General Internal Medicine 04/06/23 Sharifa Adams, RECREATION THERAPY AIDES TEACHER 112 [facility] 110 [place] [address] PCP - [facility] 10/17/24 Diamond Alvarenga, [place] [address] [place] [address] Garment Folder Family Medicine 10/30/24 documented as of this encounter
--- OUTSIDE RECORDS SUMMARY | 2025-06-27 14:42 | XMS_ITS | Encounter Summary ---
Author Organization [facility] Address [address] [place] [address] Care Team Providers Care Business Agent Name Role Phone Singh Morse MD Primary Care Provider Diamond Alvarenga SCHOOL OCCUPATIONAL THERAPIST Unavailable [phone] Sharifa Adams PHARMACY SALESPERSON Unavailable Reason for Visit * Reason Onset Date Comments Med Refill 05/20/2025 Encounter Details Date Type Department Care Team (Late st Contact Info) Description 05/20/2025 Refill [facility] [address] [facility] 110 [place] [phone] Singh Morse MD 112 [facility] 110 [place] [address] Restless leg (Primary Dx); Other chronic pain Social History Tobacco Use [...] Never 03/22/2024 How often do you attend rastafari or caodaism serv ices? Never 03/22/2024 Do you belong to any clubs o r organizations such as rastafari groups, unions, fraternal or athletic groups, or [...] Recorded Patient Health Questionnaire-2 Score 0 04/04/2025 [facility] [place] of Occupat ional Health - Occupational Stress [...] place to sleep or slept in a alf (including now)? No 03/22/2024 Education Answer Date [...] * Telephone Encounter - TORSTEN Lopez - 05/20/2025 8:41 AM EDT OARRS reviewed, Rx sent into patient's pharmacy. Please help pt get scheduled for her 3 month medication follow up visit in June. Thank you. * Telephone Encounter - POP TRAN - 05/20/2025 8:02 AM EDT OV 04/04/25 RF 04/19/25 documented in this encounter Plan of Treatment Not on file documented as of this encounter Visit Diagnoses Diagnosis Restless leg- Primary Restless legs syndrome (RLS) Other chronic pain documented in this encounter Additional Health Concerns Assessment Noted Time PHQ-9 Depression Total Score: 02/08/2 024 3:25 PM EDT documented as of this encounter Care Teams Business Agent Relationship Specialty Start Date End Date Singh Morse MD 112 [facility] 110 [place] [address] PCP - General Internal Medicine 04/06/23 Sharifa Adams, DEANDRE 112 [facility] 110 [place] [address] PCP - [facility] 10/17/24 Diamond Alvarenga, [place] [address] [place] [address] Surfacer Family Medicine 10/30/24 documented as of this encounter
--- OUTSIDE RECORDS SUMMARY | 2025-06-27 14:42 | XMS_ITS | Encounter Summary ---
Author Organization [facility] Address [address] [place] [address] Care Team Providers Care Wine And Spirits Clerk Name Role Phone Dalton Saez MD Unavailable [phone] Nathalia Justice MD Unavailable [phone] Tracy Jacobsen STUNT MAN-GRAZING AIDE Unavailable [phone] Evelina Durham STUNT MAN-GRAZING AIDE Unavailable [phone] Encounter Details Date Type Department Care Team (Late st Contact Info) Description 11/26/2021 Prep for Surgery [facility] Main OR [address] [place], [place] [id number] Jayshree Winn DDS [address] [place], [place] [id number] Social History Tobacco Use Types Packs/Day Years [...] No 07/11/2015 6:18 PM Roxana Arreaga RN * Visual impairment? Answer Date of Assessment Author No 07/11/2015 6:18 PM Roxana Arreaga RN * Gait/Transfer impairment? Answer Date of Assessment Author Yes 07/11/2015 6:18 PM Roxana Arreaga RN * ADL impairment? Answer Date of Assessment Author Yes 07/11/2015 6:18 PM Roxana Arreaga RN * Difficulty with errands? Answer Date of Assessment Author No 07/11/2015 6:18 PM Roxana Arreaga RN documented as of this encounter Mental Status * Cognitive difficulty? Answer Entry Date Author No 07/11/2015 6:18 PM Roxana Arreaga RN documented in this encounter Plan of Treatment Not on file documented as of this encounter Visit Diagnoses Diagnosis Dental caries- Primary Unspecified dental caries documented in this encounter Care Teams Wine And Spirits Clerk Relationship Specialty Start Date End Date Dalton Saez MD [address] [place] [address] Physician Orthopaedic Surgery 07/22/20 Nathalia Justice MD [address] [place] [address] Physician Infectious Diseases 07/22/20 Tracy Jacobsen APRN-GRAZING AIDE [address] [place] [address] SPIDER ASSEMBLER Infectious Diseases 03/20/21 Evelina Durham APRN-ELIZABETH [address] [place], [place] [id number] SPIDER ASSEMBLER Infectious Diseases 05/22/21 documented as of this encounter
--- OUTSIDE RECORDS SUMMARY | 2025-06-27 14:42 | XMS_ITS | Clinical Summary ---
Author Organization [facility] Address [address] [place] [address] Care Team Providers Care Systems Software Manager Name Role Phone Unavailable Primary Care Provider Unavailabl e Allergies Active Allergy Reactions Criticality Noted Date Comments Cefazolin Rash Low 04/03/2020 Ciprofloxacin Other (See Comments) Medium 04/03/2020 Nausea Ondansetron Other (See Comments) Medium 04/03/2020 Hallucinations Medications albuterol (ACCUNEB) (2.5 MG/3ML) 0.083% nebulizer solution Take 3 mL (2.5 mg total) by nebulization Every 4 hours as needed. for wheezing or shortness of breath. 0 0 Active ascorbic acid (VITAMIN C) 500 MG tablet Take 1 tablet (500 mg total) by mouth 2 (two) times a day. 0 0 Active baclofen (LIORESAL) 10 MG tablet Take 2 tablets (20 mg total) by mouth 3 (three) times a day. 0 0 Active melatonin tablet Take 2 tablets (6 mg total) by mouth nightly. 0 0 Active oxybutynin (DITROPAN) 5 MG tablet Take 1 tablet (5 mg total) by mouth 4 (four) times a day. 0 0 Active pantoprazole (PROTONIX) 40 MG EC/DR tablet Take 1 tablet (40 mg total) by mouth Daily at 6am. 0 0 Active multivitamin with minerals tablet tablet Take 1 tablet by mouth daily. 0 0 Active DULoxetine (CYMBALTA) 60 MG capsule Take 1 capsule (60 mg total) by mouth nightly. 0 0 Active gabapentin (NEURONTIN) 300 MG capsule Take 2 capsules (600 mg total) by mouth 3 (three) times a day. 0 0 Active docusate sodium (COLACE) 100 MG capsule Take 1 capsule (100 mg total) by mouth 2 (two) times a day as needed for constipation. 0 0 Active Heparin Sodium, Porcine, (heparin, porcine,) 5000 UNIT/ML injection Inject 1 mL (5,000 Units total) under the skin every 8 (eight) hours. 0 0 Active ibuprofen (MOTRIN) 600 MG tablet Take 1 tablet (600 mg total) by mouth every 6 (six) hours as needed for mild pain (1 - 3). 0 0 Active sertraline (ZOLOFT) 25 MG tablet Take 3 tablets (75 mg total) by mouth nightly. 0 0 Active mineral oil liquid Take 15 mL by mouth daily as needed for constipation (if not relieved by docusate). 0 0 Active Active Problems Problem Noted Date Diagnosed Date Sepsis 09/28/2020 Wound 04/03/2020 Social History Tobacco Use Types Packs/Day Years Used Date Smoking Tobacco: Former Cigarettes 1 5.2 2 015 - 01/16/2020 Smokeless Tobacco: Never Alcohol Use Standard Drinks/Week Comments Not Currently 0 (1 standard drink = 0.6 oz pur e alcohol) Comments Unknown Sex and Gender Information Value Date Recorded Sex Assigned at Not on file Legal Sex Female 1:33 PM EDT Gender Identity Not on file Sexual Orientation Not on file Last Filed Vital Signs Vital Sign Reading Time Taken Comments Blood Pressure 114/66 10/08/2020 10:23 AM EST Pulse 99 10/08/2020 10:23 AM EST Temperature 36.4 C (97.6 F) 10/08/2020 10:23 AM EST Respiratory Rate 18 10/08/2020 10:23 AM EST Oxygen Saturation 98% 10/08/2020 10:23 AM EST Inhaled Oxygen Concentration - - Weight 86.8 kg (191 lb 6.4 oz) 10/05/2020 4:13 P M EST Height 170.2 cm (5' 7 ) 09/27/2020 12:30 PM EST Body Mass Index 29.98 09/27/2020 12:30 PM EST Plan of Treatment Health Maintenance Due Date Last Done Comments HPV/PAP 1986 Annual Visit Topic 12/27/1987 MMR Vaccines (1 of 1 - Stand erinn series) 12/27/1987 Varicella Vaccines (1 of 2 - 13+ 2-dose series) 12/27/1999 Hepatitis C Screening 2004 DTaP/Tdap/Td Vaccines (1 - Tdap) 2005 Hepatitis B Vaccines (1 of 3 - 19+ 3-dose series) 2005 Pap Smear 12/27/2007 HPV Vaccines (1 - 3-dose SCD M series) 2013 Cervical Cancer Screening 2016 HPV/Cotest 2016 HPV 2016 HIB Vaccines Aged Out No longer eligi ble based on patient's age to complete this topic Hepatitis A Vaccines Aged Out No long er eligible based on patient's age to complete this topic IPV Vaccines Aged Out No longer eligi ble based on patient's age to complete this topic Meningococcal Vaccine Aged Out No [place] fernanda eligible based on patient's age to complete this topic Pneumococcal Vaccine: Pediat rics (0 to 5 years) and At-Risk Patients (6 to 64 Years) Aged Out No longer eligible b ased on patient's age to complete this topic Advance Directives * Full Resuscitation (Latest Code Status on File) Date Activated Date Inactivated Comments 09/28/2020 1:20 AM 10/08/2020 6:57 PM * Full Resuscitation Date Activated Date Inactivated Comments 04/03/2020 7:32 PM 05/16/2020 3:49 PM
--- OUTSIDE RECORDS SUMMARY | 2025-06-27 14:42 | XMS_ITS | Encounter Summary ---
Author Organization [facility] Address [address] [place] [address] Care Team Providers Care Records Coordinator Name Role Phone Singh Morse MD Primary Care Provider [phone] Diamond Alvarenga SUPERINTENDENT MECHANICAL Unavailable [phone] Sharifa Adams DEVELOPMENT AND PLANNING ENGINEER Unavailable Encounter Details Date Type Department Care Team (Late st Contact Info) Description 01/30/2025 Abstract [facility] [address] [facility] 110 [place] [phone] Singh Morse MD 112 [facility] 110 [place] [address] Social History Tobacco Use Types [...] Never 03/22/2024 How often do you attend christianity or rastafarian serv ices? Never 03/22/2024 Do you belong to any clubs o r organizations such as christianity groups, unions, fraternal or athletic groups, or [...] Recorded Patient Health Questionnaire-2 Score 6 02/09/2024 [facility] [place] of Occupat ional Health - Occupational Stress [...] documented as of this encounter Care Teams Records Coordinator Relationship Specialty Start Date End Date Singh Morse MD [address] [place] [address] PCP - General Internal Medicine 04/06/23 Sharifa Adams, DEVELOPMENT AND PLANNING ENGINEER 112 [facility] 110 [place] [address] PCP - [facility] 10/17/24 Diamond Alvarenga, [place] [address] [place] [address] Case Operator Family Medicine 10/30/24 documented as of this encounter
--- OUTSIDE RECORDS SUMMARY | 2025-06-27 14:42 | XMS_ITS | Encounter Summary ---
Author Organization [facility] Address [address] [place] [address] Care Team Providers Care Link Assembler Name Role Phone Singh Morse MD Primary Care Provider Diamond Alvarenga SWEET PICKLED FRUIT MAKER Unavailable [phone] Sharifa Adams CORE SHAPER SIDES Unavailable Encounter Details Date Type Department Care Team (Late st Contact Info) Description 05/01/2025 Abstract [facility] [address] [facility] 110 [place] [address] Singh Morse MD 112 [facility] 110 [place] [address] Social History Tobacco Use Types [...] Never 03/22/2024 How often do you attend restorationist or amish serv ices? Never 03/22/2024 Do you belong to any clubs o r organizations such as restorationist groups, unions, fraternal or athletic groups, or [...] Recorded Patient Health Questionnaire-2 Score 0 04/04/2025 [facility] [place] of Occupat ional Health - Occupational Stress [...] slept in a long-term (including now)? No 03/22/2024 Education Answer Date [...] documented as of this encounter Care Teams Link Assembler Relationship Specialty Start Date End Date Singh Morse MD [address] [place] [address] PCP - General Internal Medicine 04/06/23 Sharifa Adams, CORE SHAPER SIDES 112 [facility] 110 [place] [address] PCP - [facility] 10/17/24 Diamond Alvarenga, [place] [address] [place] [address] Business Technology Professor Family Medicine 10/30/24 documented as of this encounter
--- OUTSIDE RECORDS SUMMARY | 2025-06-27 14:42 | XMS_ITS | Encounter Summary ---
Author Organization [facility] Address [address] [facility] [place] [address] Care Team Providers Care Bag Builder Name Role Phone Singh Morse MD Unavailable [phone] Singh Morse MD Primary Care Provider [phone] Pato Lambert DO Unavailable Tuesday, Elisa PAPERBOARD BOX MAKER Unavailable [phone] Diamond Alvarenga CREW FOREMAN Unavailable Sharifa Adams STEM CLEANING MACHINE FEEDER Unavailable Encounter Details Date Type Department Care Team (Late st Contact Info) Description 05/18/2023 Abstract [facility] [place] [facility] 112 [facility] 110 [place] [address] Singh Morse MD [address] [facility] 110 [place], [place] [address] Social History Tobacco Use Types Packs/Day Years [...] on filedocumented in this encounter Care Teams Bag Builder Relationship Specialty Start Date End Date Singh Morse MD [address] [place] [address] [place] [address] PCP - [facility] 01/15/23 01/15/24 Singh Morse MD [address] [place] [address] [place] [address] PCP - General Internal Medicine 04/06/23 Pato Lambert DO [address] [place] [address] Dr Leslye [place]an [place], [place] [address] PCP - [facility] 04/16/24 10/16/24 Sharifa Adams, STEM CLEANING MACHINE FEEDER [address] [place] [address] [place] [address] PCP - [facility] 10/17/24TuesdayElisa LPN [address] [place] [address] Licensed Practical Nurse Family Medicine 07/04/24 11/06/24 Diamond Alvarenga, [place] [address] [place] [address] Pin Cleaner Family Medicine 10/30/24 documented as of this encounter
--- OUTSIDE RECORDS SUMMARY | 2025-06-27 14:42 | XMS_ITS | Encounter Summary ---
Author Organization [facility] Address [address] [place] [address] Care Team Providers Care Book Sewing Machine Operator Name Role Phone Singh Morse MD Primary Care Provider Diamnod Alvarenga LASTING MACHINE OPERATOR HAND METHOD Unavailable [phone] Sharifa Adams HEEL TRIMMER Unavailable [phone] Encounter Details Date Type Department Care Team (Late st Contact Info) Description 02/18/2025 Abstract [facility] [address] [facility] 110 [place] [address] Singh Morse MD 112 [facility] 110 [place] [address] Social History Tobacco Use Types [...] Never 03/22/2024 How often do you attend uatsdin or anabaptist serv ices? Never 03/22/2024 Do you belong to any clubs o r organizations such as uatsdin groups, unions, fraternal or athletic groups, or [...] Recorded Patient Health Questionnaire-2 Score 6 02/09/2024 [facility] [place] of Occupat ional Health - Occupational Stress [...] in a long term (including now)? No 03/22/2024 Education Answer Date [...] documented as of this encounter Care Teams Book Sewing Machine Operator Relationship Specialty Start Date End Date Singh Morse MD [address] [place] [address] PCP - General Internal Medicine 04/06/23 Sharifa Adams, HEEL TRIMMER 112 [facility] 110 [place] [address] PCP - [facility] 10/17/24 Diamond Alvarenga, [place] [address] [place] [address] Conche Loader And Unloader Family Medicine 10/30/24 documented as of this encounter
--- OUTSIDE RECORDS SUMMARY | 2025-06-27 14:42 | XMS_ITS | Encounter Summary ---
Author Organization [facility] Address [address] [place] [address] Care Team Providers Care Psych Specialist Name Role Phone Singh Morse MD Primary Care Provider [phone] Diamond Alvarenga INSTRUMENT INSPECTOR Unavailable [phone] Sharifa Adams SURGEON/PRESIDENT Unavailable [phone] Encounter Details Date Type Department Care Team (Late st Contact Info) Description 05/14/2025 Abstract [facility] [address] [place] [address] Diamond Alvarenga, INSTRUMENT INSPECTOR [address] [place] [address] Social History Tobacco Use Types Packs/Day Years [...] Never 03/22/2024 How often do you attend buddhism or orthodoxy serv ices? Never 03/22/2024 Do you belong to any clubs o r organizations such as buddhism groups, unions, fraternal or athletic groups, or [...] Recorded Patient Health Questionnaire-2 Score 0 04/04/2025 [facility] [place] of Occupat ional Health - Occupational Stress [...] documented as of this encounter Care Teams Psych Specialist Relationship Specialty Start Date End Date Singh Morse MD [address] [place] [address] PCP - General Internal Medicine 04/06/23 Sharifa Adams, SURGEON/PRESIDENT 112 [facility] 110 [place] [address] PCP - [facility] 10/17/24 Diamond Alvarenga, [place] [address] [place] [address] Software Sales Representative Family Medicine 10/30/24 documented as of this encounter
--- OUTSIDE RECORDS SUMMARY | 2025-06-27 14:42 | XMS_ITS | Encounter Summary ---
Author Organization [facility] Address [address] [place] [address] Care Team Providers Care Bird Tender Name Role Phone Singh Morse MD Primary Care Provider [phone] Diamond Alvarenga PIG STICKER Unavailable [phone] Sharifa Adams RAILWAY EQUIPMENT OPERATOR Unavailable Encounter Details Date Type Department Care Team (Late st Contact Info) Description 04/05/2025 [facility] [address] [facility] 110 [place] [id number] Singh Morse MD 112 [facility] 110 [place] [address] Social History Tobacco Use Types [...] Never 03/22/2024 How often do you attend catholic or methodist serv ices? Never 03/22/2024 Do you belong to any clubs o r organizations such as catholic groups, unions, fraternal or athletic groups, or [...] Patient Health Questionnaire-2 Score 0 04/04/2025 [facility] of Occupat ional Health - Occupational Stress [...] place to sleep or slept in a intermediate (including now)? No 03/22/2024 Education Answer Date [...] documented as of this encounter Care Teams Bird Tender Relationship Specialty Start Date End Date Singh Morse MD 112 [place] [address] PCP - General Internal Medicine 04/06/23 Sharifa Adams, RAILWAY EQUIPMENT OPERATOR 112 [facility] 110 [place] [address] PCP - [facility] 10/17/24 Diamond Alvarenga, [place] [address] [place] [address] Agricultural Service Technician Family Medicine 10/30/24 documented as of this encounter
--- OUTSIDE RECORDS SUMMARY | 2025-06-27 14:42 | XMS_ITS | Clinical Summary ---
Author Organization [facility], [facility] Address [address] [place] [address] Care Team Providers Care Manager Icu Name Role Phone Unavailable Primary Care Provider Unavailabl e Social History Tobacco Use Types Packs/Day Years Used Date Smoking Tobacco: Never Assessed Comments Unknown Sex and Gender Information Value Date Recorded Sex Assigned at Not on file Legal Sex Female 7:51 AM EST Gender Identity Not on file Sexual Orientation Not on file Plan of Treatment Health Maintenance Due Date Last Done Comments Hepatitis C Screening 1986 DTaP,Tdap,and Td Vaccines (1 - Tdap) 2005 Hepatitis B Vaccine ages 19 years and older (1 of 3 - 19+ 3-dose series) 2005 Cervical Cancer Screening: Cytology 12/27/2007 COVID-19 Vaccine ( - 2023-2 5 season) 2025 Influenza Vaccine (#1) 2025 Respiratory Syncytial Virus (RSV) or ages 60 years and older (1 - 1-dose 75+ series) 2061 Pneumococcal Combined Aged Out No [place] fernanda eligible based on patient's age to complete this topic Respiratory Syncytial Virus (RSV) ages 0 thru 19 months Aged Out No longer eligible based on patient's age to complete this topic
--- OUTSIDE RECORDS SUMMARY | 2025-06-27 14:42 | XMS_ITS | Encounter Summary ---
Author Organization [facility] Address [address] [facility] [place] [address] Care Team Providers Care Volunteer Assistant Name Role Phone Singh Morse MD Unavailable [phone] Singh Morse MD Primary Care Provider Pato Lambert DO Unavailable Tuesday, Elisa BEEF BONER Unavailable [phone] Diamond Alvarenga VASCULAR ULTRASOUND TECHNICIAN Unavailable Sharifa Adams BAR PORTER Unavailable Encounter Details Date Type Department Care Team (Late st Contact Info) Description 05/26/2023 Abstract [facility] [place] [facility] 112 [facility] 110 [place] [address] Singh Morse MD [address] [facility] 110 [place], [place] [id number] Social History Tobacco Use Types Packs/Day Years [...] on filedocumented in this encounter Care Teams Volunteer Assistant Relationship Specialty Start Date End Date Singh Morse MD [address] [place] [address] [place] [address] PCP - [facility] 01/15/23 01/15/24 Singh Morse MD [address] [place] [address] [place] [address] PCP - General Internal Medicine 04/06/23 Pato Lambert DO [address] [place] [address] Dr Leslye [place]an [place], [place] [id number] PCP - [facility] 04/16/24 10/16/24 Sharifa Adams, BAR PORTER [address] [place] [address] [place] [address] PCP - [facility] 10/17/24TuesdayElisa LPN [address] [place] [address] Licensed Practical Nurse Family Medicine 07/04/24 11/06/24 Diamond Alvarenga, [place] [address] [place] [address] Aircraft Navigator Family Medicine 10/30/24 documented as of this encounter
--- OUTSIDE RECORDS SUMMARY | 2025-06-27 14:42 | XMS_ITS | Encounter Summary ---
Author Organization [facility] Address [address] [place] [address] Care Team Providers Care Medicare Sales Representative Name Role Phone Singh Morse MD Primary Care Provider Diamond Alvarenga INSTRUCTIONAL TECHNOLOGY SPECIALIST Unavailable [phone] Sharifa Adams GLYCERIN SUPERVISOR Unavailable Encounter Details Date Type Department Care Team (Late st Contact Info) Description 05/20/2025 Abstract [facility] 112 [facility] 110 [place] [id number] Singh Morse MD 112 [facility] 110 [place] [address] Social History Tobacco Use Types [...] Never 03/22/2024 How often do you attend baptism or latter-day serv ices? Never 03/22/2024 Do you belong to any clubs o r organizations such as baptism groups, unions, fraternal or athletic groups, or [...] Recorded Patient Health Questionnaire-2 Score 0 04/04/2025 [facility] of Occupat ional Health - Occupational Stress [...] slept in a retirement (including now)? No 03/22/2024 Education Answer Date [...] documented as of this encounter Care Teams Medicare Sales Representative Relationship Specialty Start Date End Date Singh Morse MD [address] [place] [address] PCP - General Internal Medicine 04/06/23 Sharifa Adams, GLYCERIN SUPERVISOR 112 [facility] 110 [place] [address] PCP - [facility] 10/17/24 Diamond Alvarenga, [place] [address] [place] [address] Photo Booth Operator Family Medicine 10/30/24 documented as of this encounter
--- OUTSIDE RECORDS SUMMARY | 2025-06-27 14:42 | XMS_ITS | Encounter Summary ---
Author Organization [facility] Address [address] [facility] [place] [address] Care Team Providers Care Databases Computer Consultant Name Role Phone Singh Morse MD Unavailable [phone] Singh Morse MD Primary Care Provider [phone] Pato Lambert DO Unavailable Tuesday, Elisa MINING ENGINEER Unavailable [phone] Diamond Alvarenga INSPECTOR STRUCTURAL BONDING Unavailable Sharifa Adams REDUCTION FURNACE OPERATOR Unavailable Encounter Details Date Type Department Care Team (Late st Contact Info) Description 07/14/2023 Abstract [facility] [place] [facility] 112 [facility] 110 [place] [phone] Singh Morse MD [address] [facility] 110 [place], [place] [address] Social History Tobacco Use Types Packs/Day Years [...] on filedocumented in this encounter Care Teams Databases Computer Consultant Relationship Specialty Start Date End Date Singh Morse MD [address] [place] [address] [place] [address] PCP - [facility] 01/15/23 01/15/24 Singh oMrse MD [address] [place] [address] [place] [address] PCP - General Internal Medicine 04/06/23 Pato Lambert DO [address] [place] [address] Dr Leslye [place]an [place], [place] [id number] PCP - [facility] 04/16/24 10/16/24 Sharifa Adams, REDUCTION FURNACE OPERATOR [address] [place] [address] [place] [address] PCP - [facility] 10/17/24TuesdayElisa LPN [address] [place] [address] Licensed Practical Nurse Family Medicine 07/04/24 11/06/24 Diamond Alvarenga, [place] [address] [place] [address] Nut Tapper Family Medicine 10/30/24 documented as of this encounter
--- OUTSIDE RECORDS SUMMARY | 2025-06-27 14:42 | XMS_ITS | Encounter Summary ---
Author Organization [facility] Address [address] [facility] [place] [address] Care Team Providers Care French Binding Folder Name Role Phone Singh Morse MD Unavailable [phone] Singh Morse MD Primary Care Provider Pato Lambert DO Unavailable Tuesday, Elisa HAND TUFTER Unavailable [phone] Diamond Alvarenga ART CLASS MODEL Unavailable Sharifa Adams CLINICAL RESOURCE COORDINATOR Unavailable [phone] Encounter Details Date Type Department Care Team (Late st Contact Info) Description 04/13/[address] [facility] 112 [facility] 110 [place] [address] Singh Morse MD [address] [facility] 110 [place], [place] [id number] Social History Tobacco Use Types Packs/Day Years [...] on filedocumented in this encounter Care Teams French Binding Folder Relationship Specialty Start Date End Date Singh Morse MD [address] [place] [address] [place] [address] PCP - [facility] 01/15/23 01/15/24 Singh Morse MD [address] [place] [address] [place] [address] PCP - General Internal Medicine 04/06/23 Pato Lambert DO [address] [place] [address] Dr [place]lye [place]an [place], [place] [id number] PCP - [facility] 04/16/24 10/16/24 Sharifa Adams, CLINICAL RESOURCE COORDINATOR [address] [place] [address] [place] [address] PCP - [facility] 10/17/24TuesdayElisa LPN [address] [place] [address] Licensed Practical Nurse Family Medicine 07/04/24 11/06/24 Diamond Alvarenga, [place] [address] [place] [address] Top Lift Nailer Family Medicine 10/30/24 documented as of this encounter
--- OUTSIDE RECORDS SUMMARY | 2025-06-27 14:42 | XMS_ITS | Encounter Summary ---
Author Organization [facility] Address [address] [facility] [address] Care Team Providers Care Obstetrics Technician Name Role Phone Singh Morse MD Unavailable [phone] Singh Morse MD Primary Care Provider [phone] Pato Lambert DO Unavailable Tuesday, Elisa GAS LINE INSTALLER SUPERVISOR Unavailable [phone] Diamond Alvarenga OPERATING SYSTEM PROGRAMMER Unavailable Sharifa Adams SCREENING SPECIALIST Unavailable [phone] Encounter Details Date Type Department Care Team (Late st Contact Info) Description 05/18/2023 Abstract [facility] [place] [facility] 112 [facility] 110 [place] [address] Singh Morse MD [address] [facility] 110 [place], [place] [address] Social History Tobacco Use Types Packs/Day Years [...] on filedocumented in this encounter Care Teams Obstetrics Technician Relationship Specialty Start Date End Date Singh Morse MD [address] [place] [address] [place] [address] PCP - [facility] 01/15/23 01/15/24 Singh Morse MD [address] [place] [address] [place] [address] PCP - General Internal Medicine 04/06/23 Pato Lambert DO [address] [place] [address] Dr [place]e [place], [place] [id number] PCP - [facility] 04/16/24 10/16/24 Sharifa Adams, SCREENING SPECIALIST [address] [place] [address] [place] [address] PCP - [facility] 10/17/24TuesdayElisa LPN [address] [place] [address] Licensed Practical Nurse Family Medicine 07/04/24 11/06/24 Diamond Alvarenga, [place] [address] [place] [address] Supervisor Concrete Block Plant Family Medicine 10/30/24 documented as of this encounter
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
--- OUTSIDE RECORDS SUMMARY | 2025-06-27 14:42 | XMS_ITS | Encounter Summary ---
Author Organization [facility] Address [address] [place] [address] Care Team Providers Care Milled Lumber Grader Name Role Phone Singh Morse MD Primary Care Provider [phone] Diamond Alvarenga CYANIDE FURNACE OPERATOR Unavailable [phone] Sharifa Adams LEHR ATTENDANT Unavailable [phone] Encounter Details Date Type Department Care Team (Late st Contact Info) Description 03/29/2025 Abstract [facility] [address] [facility] [address] [place] [address] Singh Morse MD [address] [facility] 110 [place] [address] Social History Tobacco Use Types [...] Never 03/22/2024 How often do you attend denominational or moravian serv ices? Never 03/22/2024 Do you belong to any clubs o r organizations such as denominational groups, unions, fraternal or athletic groups, or [...] Recorded Patient Health Questionnaire-2 Score 6 02/09/2024 [facility] [place] of Occupat ional Health - Occupational Stress [...] documented as of this encounter Care Teams Milled Lumber Grader Relationship Specialty Start Date End Date Singh Morse MD [address] [place] [address] PCP - General Internal Medicine 04/06/23 Sharifa Adams, LEHR ATTENDANT [address] [facility] 110 [place] [address] PCP - [facility] 10/17/24 Diamond Alvarenga, [place] [address] [place] [address] City Supervisor Family Medicine 10/30/24 documented as of this encounter
--- OUTSIDE RECORDS SUMMARY | 2025-06-27 14:42 | XMS_ITS | Encounter Summary ---
Author Organization [facility] Address [address] [place] [address] Care Team Providers Care Labeling Specialist Name Role Phone Singh Morse MD Primary Care Provider [phone] Pato Lambert DO Unavailable Tuesday, Elisa FARM MACHINERY MECHANIC Unavailable [phone] Diamond Alvarenga SNOW BLOWER Unavailable Sharifa Adams COMPUTER BUILDER Unavailable Encounter Details Date Type Department Care Team (Late st Contact Info) Description 10/15/2024 Abstract [facility] 112 [facility] 110 [place] [id number] Singh Morse MD 112 [facility] 110 [place], [place] [id number] Social History Tobacco Use Types Packs/Day Years [...] Never 03/22/2024 How often do you attend nondenominational or anabaptism serv ices? Never 03/22/2024 Do you belong to any clubs o r organizations such as nondenominational groups, unions, fraternal or athletic groups, or [...] Recorded Patient Health Questionnaire-2 Score 6 02/09/2024 [facility] of Occupat ional Health - Occupational [...] documented as of this encounter Care Teams Labeling Specialist Relationship Specialty Start Date End Date Singh Morse MD [address] [place] [address] [place] [address] PCP - General Internal Medicine 04/06/23 Pato Lambert DO 102 [facility] Les[address] Catalan [place], [place] [id number] PCP - [facility] 04/16/24 10/16/24 Sharifa Adams, DEANDRE [address] [place] [address] [place] [address] PCP - [facility] 10/17/24TueNasElisa yee LPN [address] [place] [address] Licensed Practical Nurse Family Medicine 07/04/24 11/06/24 Diamond Alvarenga, [place] [address] [place] [address] Assistant Speech Language Pathologist Family Medicine 10/30/24 documented as of this encounter
--- OUTSIDE RECORDS SUMMARY | 2025-06-27 14:42 | XMS_ITS | Encounter Summary ---
Author Organization [facility] Address [address] [place] [address] Care Team Providers Care Sewer Pipe Press Operator Name Role Phone Singh Morse MD Primary Care Provider Diamond Alvarenga PLANER SETTER Unavailable [phone] Sharifa Adams COAL PULVERIZER OPERATOR Unavailable Encounter Details Date Type Department Care Team (Late st Contact Info) Description 03/18/2025 Abstract [facility] [address] [facility] [facility] 110 [place] [id number] Singh Morse MD 112 [facility] 110 [place] [address] Social History Tobacco Use Types [...] Never 03/22/2024 How often do you attend scientology or scientologist serv ices? Never 03/22/2024 Do you belong to any clubs o r organizations such as scientology groups, unions, fraternal or athletic groups, or [...] Recorded Patient Health Questionnaire-2 Score 6 02/09/2024 [facility] [place] of Occupat ional Health - Occupational Stress [...] documented as of this encounter Care Teams Sewer Pipe Press Operator Relationship Specialty Start Date End Date Singh Morse MD 112 [place] [address] PCP - General Internal Medicine 04/06/23 Sharifa Adams, COAL PULVERIZER OPERATOR 112 [facility] 110 [place] [address] PCP - [facility] 10/17/24 Diamond Al[place]renga, [place] [address] [place] [address] Manager Federal Family Medicine 10/30/24 documented as of this encounter
--- OUTSIDE RECORDS SUMMARY | 2025-06-27 14:42 | XMS_ITS | Encounter Summary ---
Author Organization [facility] Address [address] [place] [address] Care Team Providers Care Biosolids Management Technician Name Role Phone Singh Morse MD Primary Care Provider Diamond Alvarenga CRAP SHOOTER Unavailable [phone] Sharifa Adams POURING CRANE OPERATOR Unavailable [phone] Encounter Details Date Type Department Care Team (Late st Contact Info) Description 05/06/2025 Abstract [facility] 112 [facility] [facility] 110 [place] [phone] Singh Morse MD 112 [facility] 110 [place] [address] Social History Tobacco Use Types [...] Never 03/22/2024 How often do you attend yazidi or restoration serv ices? Never 03/22/2024 Do you belong to any clubs o r organizations such as yazidi groups, unions, fraternal or athletic groups, or [...] Recorded Patient Health Questionnaire-2 Score 0 04/04/2025 [facility] [place] of Occupat ional Health - Occupational Stress [...] place to sleep or slept in a snf (including now)? No 03/22/2024 Education Answer Date [...] documented as of this encounter Care Teams Biosolids Management Technician Relationship Specialty Start Date End Date Singh Morse MD 112 [place] [address] PCP - General Internal Medicine 04/06/23 Sharifa Adams, POURING CRANE OPERATOR 112 [facility] 110 [place] [address] PCP - [facility] 10/17/24 Diamond Al[place]renga, [place] [address] [place] [address] Community Worker Family Medicine 10/30/24 documented as of this encounter
--- OUTSIDE RECORDS SUMMARY | 2025-06-27 14:42 | XMS_ITS | Encounter Summary ---
Author Organization [facility] Address [address] [place] [address] Care Team Providers Care Criminal Analyst Name Role Phone Dalton Saez MD Unavailable [phone] Nathalia Justice MD Unavailable [phone] Tracy Jacobsen RECEIVING WORKER-AUDIO/VIDEO TECHNICIAN Unavailable [phone] Evelina Durham RECEIVING WORKER-AUDIO/VIDEO TECHNICIAN Unavailable [phone] Encounter Details Date Type Department Care Team (Late st Contact Info) Description 01/14/2022 Abstract PATIENT ACUITY SCORE Social History Tobacco [...] on filedocumented in this encounter Care Teams Criminal Analyst Relationship Specialty Start Date End Date Dalton Saez MD [address] [place] [address] Physician Orthopaedic Surgery 07/22/20 Nathalia Justice MD [address] [place] [address] Physician Infectious Diseases 07/22/20 Tracy Jacobsen APRN-ELIZABETH [address] [place], [place] [phone] CUSTOM LEATHER PRODUCTS MAKER Infectious Diseases 03/20/21 Evelina Durham APRN-ELIZABETH [address] [place], [place] [id number] CUSTOM LEATHER PRODUCTS MAKER Infectious Diseases 05/22/21 documented as of this encounter
--- OUTSIDE RECORDS SUMMARY | 2025-06-27 14:42 | XMS_ITS | Encounter Summary ---
Author Organization [facility] Address [address] [facility] [place] [address] Care Team Providers Care 3 Year Olds Preschool Teacher Name Role Phone Singh Morse MD Unavailable [phone] Singh Morse MD Primary Care Provider [phone] Pato Lambert DO Unavailable Tuesday, Elisa ACCESS SERVICES LIBRARIAN Unavailable [phone] Diamond Alvarenga HAND MIXER Unavailable Sharifa Adams ANESTHESIOLOGY FACULTY Unavailable Encounter Details Date Type Department Care Team (Late st Contact Info) Description 04/25/2023 Abstract [facility] [address] [facility] 110 [place] [address] Singh Morse MD 112 [facility] 110 [place], [place] [address] Social History Tobacco Use Types Packs/Day Years [...] on filedocumented in this encounter Care Teams 3 Year Olds Preschool Teacher Relationship Specialty Start Date End Date Singh Morse MD [address] [place] [address] [place] [address] PCP - [facility] 01/15/23 01/15/24 Singh Morse MD [address] [place] [address] [place] [address] PCP - General Internal Medicine 04/06/23 Pato Lambert DO [address] [place] [address] Dr [address] [place], [place] [id number] PCP - [facility] 04/16/24 10/16/24 Shairfa Adams, ANESTHESIOLOGY FACULTY [address] [place] [address] [place] [address] PCP - [facility] 10/17/24TuesdayElisa LPN [address] [place] [address] Licensed Practical Nurse Family Medicine 07/04/24 11/06/24 Diamond Alvarenga, [place] [address] [place] [address] Therapist Asst Family Medicine 10/30/24 documented as of this encounter
--- OUTSIDE RECORDS SUMMARY | 2025-06-27 14:42 | XMS_ITS | Encounter Summary ---
Author Organization [facility] Address [address] [place] [address] Care Team Providers Care Cnc Lathe Machinist Name Role Phone Singh Morse MD Primary Care Provider Diamond Alvarenga VP TRAINING Unavailable [phone] Sharifa Adams DANCE PROFESSOR Unavailable Reason for Visit * Reason Comments Med Refill Encounter Details Date Type Department Care Team (Late st Contact Info) Description 06/27/2025 Refill [facility] [address] [facility] 110 [place] [address] Singh Morse MD 112 [facility] 110 [place] [address] Acne vulgaris Social History Tobacco Use Types Packs/Day Years [...] Never 03/22/2024 How often do you attend yazdanism or scientologist serv ices? Never 03/22/2024 Do you belong to any clubs o r organizations such as yazdanism groups, unions, fraternal or athletic groups, or [...] Recorded Patient Health Questionnaire-2 Score 0 04/04/2025 [facility] [place] of Occupat ional Health - Occupational Stress [...] as of this encounter Visit Diagnoses Diagnosis Acne vulgaris Other acne documented in this encounter Additional Health Concerns Assessment Noted Time PHQ-9 Depression Total Score: 19 024 3:25 PM EDT documented as of this encounter Care Teams Cnc Lathe Machinist Relationship Specialty Start Date End Date Singh Morse MD [address] [email or web address] 110 [place] [address] PCP - General Internal Medicine 04/06/23 Sharifa Adams, DANCE PROFESSOR [address] [facility] 110 [place], [place] [id number] PCP - [facility] 10/17/24 Diamond Alvarenga, VP TRAINING [address] [place] [address] Digital Marketing Strategist Family Medicine 10/30/24 documented as of this encounter
--- OUTSIDE RECORDS SUMMARY | 2025-06-27 14:42 | XMS_ITS | Encounter Summary ---
Author Organization [facility] Address [address] [place] [address] Care Team Providers Care Carpenter'S Helper Name Role Phone Singh Morse MD Primary Care Provider [phone] Diamond Alvarenga BEAD MAKER Unavailable [phone] Sharifa Adams COMMUNICATIONS PROFESSIONAL Unavailable [phone] Encounter Details Date Type Department Care Team (Late st Contact Info) Description 06/03/2025 Abstract [facility] [address] [facility] 110 [place] [address] Singh Morse MD 112 [facility] 110 [place] [address] Social History Tobacco Use Types [...] Never 03/22/2024 How often do you attend latter day or methodist serv ices? Never 03/22/2024 Do you belong to any clubs o r organizations such as latter day groups, unions, fraternal or athletic groups, or [...] Recorded Patient Health Questionnaire-2 Score 0 04/04/2025 [facility] [place] of Occupat ional Health - Occupational Stress [...] documented as of this encounter Care Teams Carpenter'S Helper Relationship Specialty Start Date End Date Singh Morse MD 112 [place] [address] PCP - General Internal Medicine 04/06/23 Sharifa Adams, COMMUNICATIONS PROFESSIONAL 112 [facility] 110 [place] [address] PCP - [facility] 10/17/24 Diamond Alvarenga, [place] [address] [place] [address] Broadcast Transmitter Operator Family Medicine 10/30/24 documented as of this encounter
--- OUTSIDE RECORDS SUMMARY | 2025-06-27 14:42 | XMS_ITS | Encounter Summary ---
Author Organization [facility] Address [address] [place] [address] Care Team Providers Care Supply Planner Name Role Phone Dalton Saez MD Unavailable [phone] Nathalia Justice MD Unavailable [phone] Tracy Jacobsen MONTESSORI TODDLER TEACHER-POWERTRAIN ENGINEER Unavailable [phone] Evelina Durham MONTESSORI TODDLER TEACHER-POWERTRAIN ENGINEER Unavailable [phone] Encounter Details Date Type Department Care Team (Late st Contact Info) Description 11/26/2021 Prep for Surgery [facility] Main OR [address] [place], [place] [id number] Jayshree Winn DDS [address] [place], [place] [id number] Social History Tobacco Use Types Packs/Day Years [...] documented in this encounter Plan of Treatment Scheduled Orders Name Type Priority Associated Diagnoses Orde r Schedule URINE HCG-IN OFFICE Lab Routine One t griffin for 1 Occurrences starting 11/26/2021 until 11/26/2021 documented as of this encounter Visit Diagnoses Diagnosis Caries- Primary Unspecified dental caries documented in this encounter Care Teams Supply Planner Relationship Specialty Start Date End Date Dalton Saez MD [address] [place] [address] Physician Orthopaedic Surgery 07/22/20 Nathalia Justice MD [address] [place], [place] [phone] Physician Infectious Diseases 07/22/20 Tracy Jacobsen APRN-ELIZABETH [address] [place] [address] VENDING MACHINE OPERATOR Infectious Diseases 03/20/21 Evelina Durham APRN-ELIZABETH [address] [place] [address] VENDING MACHINE OPERATOR Infectious Diseases 05/22/21 documented as of this encounter
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
--- OUTSIDE RECORDS SUMMARY | 2025-06-27 14:43 | XMS_ITS | Encounter Summary ---
Author Organization [facility] Address [address] [place] [address] Care Team Providers Care Awning Maker Name Role Phone Singh Morse MD Primary Care Provider Pato Lambert DO Unavailable Tuesday, Elisa MAP MOUNTER Unavailable [phone] Diamond Alvarenga CNC CUTTING OPERATOR Unavailable Sharifa Adams CYLINDER PRESS OPERATOR HELPER Unavailable Encounter Details Date Type Department Care Team (Late st Contact Info) Description 08/07/2024 Abstract [facility] [place] [facility] [address] [facility] 110 [place] [phone] Singh Morse MD 112 [facility] 110 [place], [place] [address] Social History Tobacco Use Types Packs/Day Years [...] How often do you attend rastafari or cheondoism serv ices? Never 03/22/2024 Do you belong [...] Recorded Patient Health Questionnaire-2 Score 6 02/09/2024 [facility] of Occupat ional Health - [...] documented as of this encounter Care Teams Awning Maker Relationship Specialty Start Date End Date Singh Morse MD [address] [place] [address] [place] [address] PCP - General Internal Medicine 04/06/23 Pato Lambert DO [address] [facility] [address] [place], [place] [phone] PCP - [facility] 04/16/24 10/16/24 Sharifa Adams, DEANDRE [address] [place] [address] PCP - [facility] 10/17/24TueNasElisa yee LPN [address] [place] [address] Licensed Practical Nurse Family Medicine 07/04/24 11/06/24 Diamond Alvarenga, [place] [address] [place] [place] [address] Manufacturing Weaver Family Medicine 10/30/24 documented as of this encounter
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
--- OUTSIDE RECORDS SUMMARY | 2025-06-27 14:43 | XMS_ITS | Encounter Summary ---
Author Organization [facility] Address [address] [place] [address] Care Team Providers Care Vacuum Plastic Forming Machine Operator Name Role Phone Singh Morse MD Primary Care Provider [phone] Pato Lambert DO Unavailable Tuesday, Elisa SENIOR LIVING ADVISOR Unavailable [phone] Diamond Alvarenga SEMICONDUCTOR PACKAGE SYMBOL STAMPER Unavailable Sharifa Adams GEOTHERMAL POWERPLANT SUPERVISOR Unavailable Encounter Details Date Type Department Care Team (Late st Contact Info) Description 07/05/2024 Abstract [facility] 112 [facility] 110 [place] [id number] Singh Morse MD 112 [facility] 110 [place], [place] [id number] Social History Tobacco Use Types Packs/Day Years [...] How often do you attend uatsdin or jehovah's witness serv ices? Never 03/22/2024 Do you belong [...] Recorded Patient Health Questionnaire-2 Score 6 02/09/2024 [facility] of Occupat ional Health - [...] place to sleep or slept in a skilled nursing (including now)? No 03/22/2024 Education Answer Date [...] documented as of this encounter Care Teams Vacuum Plastic Forming Machine Operator Relationship Specialty Start Date End Date Singh Morse MD [address] [place] [address] PCP - General Internal Medicine 04/06/23 Pato Lambert DO 102 [facility] [address] [place], [place] [phone] PCP - [facility] 04/16/24 10/16/24 Sharifa Adams, DEANDRE [address] [place] [address] [place] [address] PCP - [facility] 10/17/24TueNasElisa yee LPN [address] [place] [address] Licensed Practical Nurse Family Medicine 07/04/24 11/06/24 Diamond Alvarenga, [place] [address] [place] [address] Licensed Optician Family Medicine 10/30/24 documented as of this encounter
--- OUTSIDE RECORDS SUMMARY | 2025-06-27 14:43 | XMS_ITS | Encounter Summary ---
Author Organization [facility] Address [address] [place] [address] Care Team Providers Care Insole Taper Name Role Phone Singh Morse MD Primary Care Provider [phone] Pato Lambert DO Unavailable Tuesday, Elisa WELCOME WAGON HOST/HOSTESS Unavailable [phone] Diamond Alvarenga COOLER CONVEYOR LOADER Unavailable Sharifa Adams SKEIN YARN DRIER Unavailable [phone] Encounter Details Date Type Department Care Team (Late st Contact Info) Description 02/16/2024 Abstract [facility] [address] [facility] 110 [place] [id number] Singh Morse MD 112 [facility] 110 [place], [place] [address] Social History Tobacco Use Types Packs/Day Years [...] week 08/03/2023 How often do you attend congregational or baptist serv ices? Never 08/03/2023 Do you belong to any clubs o r organizations such as congregational groups, unions, fraternal or athletic groups, or [...] Patient Health Questionnaire-2 Score 6 02/09/2024 [facility] Occupat ional Health - [...] place to sleep or slept in a detention (including now)? No 08/03/2023 Education Answer Date [...] documented as of this encounter Care Teams Insole Taper Relationship Specialty Start Date End Date Singh Morse MD [address] [place] [address] [place] [address] PCP - General Internal Medicine 04/06/23 Pato Lambert DO 102 [facility] [address] [place], [place] [address] PCP - [facility] 04/16/24 10/16/24 Sharifa Adams NP [address] [facility] 110 [place] [address] PCP - [facility] 10/17/24TuesdayElisa LPN [address] [place] [address] Licensed Practical Nurse Family Medicine 07/04/24 11/06/24 Diamond Alvarenga, [place] [address] [place] [address] Investigator Operator Family Medicine 10/30/24 documented as of this encounter
--- OUTSIDE RECORDS SUMMARY | 2025-06-27 14:43 | XMS_ITS | Encounter Summary ---
Author Organization [facility] Address [address] [place] [address] Care Team Providers Care Fitness Management Director Name Role Phone Singh Morse MD Primary Care Provider Pato Lambert DO Unavailable Tuesday, Elisa BEVELLER OPERATOR Unavailable [phone] Diamond Alvarenga MARKET BASKET MAKER Unavailable [phone] Sharifa Adams VITICULTURE TEACHER Unavailable [phone] Encounter Details Date Type Department Care Team (Late st Contact Info) Description 07/04/2024 Abstract [facility] 112 [facility] 110 [place] [phone] Singh Morse MD 112 [facility] 110 [place], [place] [id number] Social History Tobacco Use Types Packs/Day Years [...] How often do you attend yazidi or buddhist serv ices? Never 03/22/2024 Do you belong [...] Recorded Patient Health Questionnaire-2 Score 6 02/09/2024 [facility] of Occupat ional Health - Occupational Stress [...] place to sleep or slept in a penitentiary (including now)? No 03/22/2024 Education Answer Date [...] documented as of this encounter Care Teams Fitness Management Director Relationship Specialty Start Date End Date Singh Morse MD [address] [place] [address] PCP - General Internal Medicine 04/06/23 Pato Lambert DO 102 [facility] [address] [place], [place] [id number] PCP - [facility] 04/16/24 10/16/24 Sharifa Adams, DEANDRE [address] [place] [address] PCP - [facility] 10/17/24TueNasElisa yee LPN [address] [place] [address] Licensed Practical Nurse Family Medicine 07/04/24 11/06/24 Diamond Alvarenga, [place] [address] [place] [address] Piano Mechanic Apprentice Family Medicine 10/30/24 documented as of this encounter
--- OUTSIDE RECORDS SUMMARY | 2025-06-27 14:43 | XMS_ITS | Encounter Summary ---
Author Organization [facility] Address [address] [facility] [place] [address] Care Team Providers Care Research Scholar Name Role Phone Singh Morse MD Primary Care Provider [phone] Pato Lambert DO Unavailable Tuesday, Elisa RN PICU Unavailable [phone] Diamond Alvarenga TREE TAPPING LABORER Unavailable Sharifa Adams NP Unavailable Encounter Details Date Type Department Care Team (Late st Contact Info) Description 03/22/2024 Orders Only [facility] [address] [place] [address] Sharifa Adams NP [address] [place] [address] Social History Tobacco Use Types Packs/Day Years [...] Never 03/22/2024 How often do you attend jewish or zoroastrian serv ices? Never 03/22/2024 Do you belong [...] Recorded Patient Health Questionnaire-2 Score 6 02/09/2024 [facility] of Occupat ional Health - Occupational [...] place to sleep or slept in a jail (including now)? No 03/22/2024 Education Answer Date [...] Audit-C Score Answer Date of Assessment Author 2 03/22/2024 8:49 AM EDT Laura, Generic * Q1: How often do you have a drink containing alcohol? Answer Date of Assessment Author Monthly or less 03/22/2024 8:49 AM EDT Mychart, Generic * Q2: How many drinks containing alcohol do you have on a typical day when you are drinking? Answer Date of Assessment Author 1 or 2 03/22/2024 8:49 AM EDT Mychart, Generic * Q3: How often do you have six or more drinks on one occasion? Answer Date of Assessment Author Less than monthly 03/22/2024 8:49 AM EDT Mychart , Generic documented as of this encounter Plan of Treatment Not on file documented as of this encounter Visit Diagnoses Not on filedocumented in this encounter Additional Health Concerns Assessment Noted Time PHQ-9 Depression Total Score: 19 024 3:25 PM EDT documented as of this encounter Care Teams Research Scholar Relationship Specialty Start Date End Date Singh Morse MD [address] [place] [address] PCP - General Internal Medicine 04/06/23 Pato Lambert DO [address] [place] [id number] PCP - [facility] 04/16/24 10/16/24 Sharifa Adams, DEANDRE [address] [facility] 110 [place] [address] PCP - [facility] 10/17/24TuesdayElisa LPN [address] [place] [address] Licensed Practical Nurse Family Medicine 07/04/24 11/06/24 Diamond Alvarenga, [place] [address] [place] [address] Developmental Mathematics Professor Family Medicine 10/30/24 documented as of this encounter
--- OUTSIDE RECORDS SUMMARY | 2025-06-27 14:43 | XMS_ITS | Encounter Summary ---
Author Organization [facility] Address [address] [place] [address] Care Team Providers Care Register Of Wills Name Role Phone Singh Morse MD Primary Care Provider [phone] Pato Lambert DO Unavailable Tuesday, Elisa TILE ERECTOR Unavailable [phone] Diamond Alvarenga ULTRASOUND MANAGER Unavailable Sharifa Adams MOVIE THEATER MANAGER Unavailable [phone] Encounter Details Date Type Department Care Team (Late st Contact Info) Description 10/09/2024 Abstract [facility] 112 [facility] 110 [place] [address] Singh Morse MD 112 [facility] 110 [place], [place] [id number] Social History Tobacco Use Types Packs/Day Years [...] How often do you attend denominational or pentecostalism serv ices? Never 03/22/2024 Do you belong [...] Recorded Patient Health Questionnaire-2 Score 6 02/09/2024 [facility] of Occupat ional Health - [...] documented as of this encounter Care Teams Register Of Wills Relationship Specialty Start Date End Date Singh Morse MD [address] [place] [address] PCP - General Internal Medicine 04/06/23 Pato Lambert DO 102 [facility] [address] [place], [place] [address] PCP - [facility] 04/16/24 10/16/24 Sharifa Adams, DEANDRE [address] [place] [address] PCP - [facility] 10/17/24TueNasElisa yee LPN [address] [place] [address] Licensed Practical Nurse Family Medicine 07/04/24 11/06/24 Diamond Alvarenga, [place] [address] [place] [address] Patient Coordinator Family Medicine 10/30/24 documented as of this encounter
--- OUTSIDE RECORDS SUMMARY | 2025-06-27 14:43 | XMS_ITS | Encounter Summary ---
Author Organization [facility] Address [address] [place] [address] Care Team Providers Care Wood Machine Carver Name Role Phone Singh Morse MD Primary Care Provider aPto Lambert DO Unavailable Tuesday, Elisa CABIN MAN Unavailable [phone] Diamond Alvarenga COMPUTER SCIENCE INTERN Unavailable Sharifa Adams PREFABRICATOR Unavailable Encounter Details Date Type Department Care Team (Late st Contact Info) Description 07/09/2024 Abstract [facility] 112 [facility] 110 [place] [address] Singh Morse MD 112 [facility] 110 [place], [place] [address] Social History Tobacco Use Types Packs/Day Years [...] Never 03/22/2024 How often do you attend sabianism or amish serv ices? Never 03/22/2024 Do [...] Recorded Patient Health Questionnaire-2 Score 6 02/09/2024 [facility] of Occupat ional Health - [...] documented as of this encounter Care Teams Wood Machine Carver Relationship Specialty Start Date End Date Singh Morse MD [address] [place] [address] PCP - General Internal Medicine 04/06/23 Pato Lambert DO 102 [facility] [address] [place], [place] [address] PCP - [facility] 04/16/24 10/16/24 Sharifa Adams, DEANDRE [address] [place] [address] PCP - [facility] 10/17/24TueNasElisa yee LPN [address] [place] [address] Licensed Practical Nurse Family Medicine 07/04/24 11/06/24 Diamond Alvarenga, [place] [address] [place] [address] Billing Coordinator Family Medicine 10/30/24 documented as of this encounter
--- OUTSIDE RECORDS SUMMARY | 2025-06-27 14:43 | XMS_ITS | Encounter Summary ---
Author Organization [facility] Address [address] [place] [address] Care Team Providers Care Sock Liner Name Role Phone Singh Morse MD Primary Care Provider Pato Lambert DO Unavailable Tuesday, Elisa WIRE MESH FILTER FABRICATOR Unavailable [phone] Diamond Alvarenga MACADAM RAKER Unavailable [phone] Sharifa Adams POWER SUPPLY ENGINEER Unavailable [phone] Encounter Details Date Type Department Care Team (Late st Contact Info) Description 07/05/2024 Abstract [facility] [address] [facility] [place] [address] Pato Lambert DO [address] [facility] [address] [place], [place] [id number] Social History Tobacco Use Types Packs/Day Years [...] Never 03/22/2024 How often do you attend gnosticist or uatsdin serv ices? Never 03/22/2024 Do you belong to any clubs o r organizations such as gnosticist groups, unions, fraternal or athletic groups, or [...] Recorded Patient Health Questionnaire-2 Score 6 02/09/2024 [facility] of Occupat ional Health - [...] documented as of this encounter Care Teams Sock Liner Relationship Specialty Start Date End Date Singh Morse MD [address] [place] [address] PCP - General Internal Medicine 04/06/23 Pato Lambert DO 102 [facility] [address] [place], [place] [address] PCP - [facility] 04/16/24 10/16/24 Sharifa Adams, DEANDRE [address] [place] [address] PCP - [facility] 10/17/24TueNasElisa yee LPN [address] [place] [address] Licensed Practical Nurse Family Medicine 07/04/24 11/06/24 Diamond Alvarenga, [place] [address] [place] [address] Airframe Technical Officer Family Medicine 10/30/24 documented as of this encounter
--- OUTSIDE RECORDS SUMMARY | 2025-06-27 14:43 | XMS_ITS | Encounter Summary ---
Author Organization [facility] Address [address] [place] [address] Care Team Providers Care Network Support Administrator Name Role Phone Singh Morse MD Primary Care Provider [phone] Pato Lambert DO Unavailable Tuesday, Elisa BALCONY WORKER Unavailable [phone] Diamond Alvarenga IMMIGRATION COORDINATOR Unavailable [phone] Sharifa Adams CLERK TRAVEL RESERVATIONS Unavailable Encounter Details Date Type Department Care Team (Late st Contact Info) Description 08/21/2024 Abstract [facility] [address] [facility] [place] [address] Pato Lambert DO [address] [facility] [address] [place], [place] [address] Social History Tobacco Use Types Packs/Day Years [...] Never 03/22/2024 How often do you attend hinduism or gnosticist serv ices? Never 03/22/2024 Do you belong to any clubs o r organizations such as hinduism groups, unions, fraternal or athletic groups, or [...] Recorded Patient Health Questionnaire-2 Score 6 02/09/2024 [facility] of Occupat ional Health - Occupational [...] documented as of this encounter Care Teams Network Support Administrator Relationship Specialty Start Date End Date Singh Morse MD [address] [place] [address] PCP - General Internal Medicine 04/06/23 Pato Lambert DO 102 [facility] [address] [place], [place] [address] PCP - [facility] 04/16/24 10/16/24 Sharifa Adams, DEANDRE [address] [place] [address] PCP - [facility] 10/17/24TueNasElisa yee LPN [address] [place] [address] Licensed Practical Nurse Family Medicine 07/04/24 11/06/24 Diamond Alvarenga, [place] [address] [place] [address] Writing Tutor Family Medicine 10/30/24 documented as of this encounter
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
--- OUTSIDE RECORDS SUMMARY | 2025-06-27 14:43 | XMS_ITS | Encounter Summary ---
Author Organization [facility] Address [address] [place] [address] Care Team Providers Care Petroleum Products District Supervisor Name Role Phone Singh Morse MD Primary Care Provider Pato Lambert DO Unavailable Tuesday, Elisa SUNGLASS CLIP ATTACHER Unavailable [phone] Diamond Alvarenga BACKWINDER Unavailable Sharifa Adams DOCTOR CHIROPRACTIC Unavailable [phone] Encounter Details Date Type Department Care Team (Late st Contact Info) Description 06/13/2024 Abstract [facility] 112 [facility] 110 [place] [id number] Singh Morse MD 112 [facility] 110 [place], [place] [id number] Social History Tobacco Use Types Packs/Day Years [...] How often do you attend mosque or spiritism serv ices? Never 03/22/2024 Do you belong [...] Recorded Patient Health Questionnaire-2 Score 6 02/09/2024 [facility] of Occupat ional Health - Occupational [...] documented as of this encounter Care Teams Petroleum Products District Supervisor Relationship Specialty Start Date End Date Singh Morse MD [address] [place] [address] [place] [address] PCP - General Internal Medicine 04/06/23 Pato Lambert DO 102 [facility] [address] [place], [place] [id number] PCP - [facility] 04/16/24 10/16/24 Sharifa Adams, DEANDRE [address] [place] [address] [place] [address] PCP - [facility] 10/17/24TueNasElisa yee LPN [address] [place] [address] Licensed Practical Nurse Family Medicine 07/04/24 11/06/24 Diamond Alvarenga, [place] [address] [place] [address] Facility Service Manager Family Medicine 10/30/24 documented as of this encounter
--- OUTSIDE RECORDS SUMMARY | 2025-06-27 14:43 | XMS_ITS | Encounter Summary ---
Author Organization [facility] Address [address] [place] [address] Care Team Providers Care Strip Winder Name Role Phone Singh Morse MD Primary Care Provider Pato Lambert DO Unavailable Tuesday, Elisa DIRECTOR SUMMER SESSIONS Unavailable [phone] Diamond Alvarenga WALL STEAMER Unavailable Sharifa Adams BRIEF WRITER Unavailable Encounter Details Date Type Department Care Team (Late st Contact Info) Description 07/10/2024 Abstract [facility] 112 [facility] 110 [place] [id number] Singh Morse MD 112 [facility] 110 [place], [place] [id number] Social History Tobacco Use Types Packs/Day Years [...] Never 03/22/2024 How often do you attend muslim or shinto serv ices? Never 03/22/2024 Do you belong to any clubs o r organizations such as muslim groups, unions, fraternal or athletic groups, or [...] place to sleep or slept in a fdc (including now)? No 03/22/2024 Education Answer Date [...] documented as of this encounter Care Teams Strip Winder Relationship Specialty Start Date End Date Singh Morse MD [address] [place] [address] [place] [address] PCP - General Internal Medicine 04/06/23 Pato Lambert DO 102 [facility] [address] [place], [place] [id number] PCP - [facility] 04/16/24 10/16/24 Sharifa Adams, DEANDRE [address] [place] [address] [place] [address] PCP - [facility] 10/17/24TueNasElisa yee LPN [address] [place] [address] Licensed Practical Nurse Family Medicine 07/04/24 11/06/24 Diamond Alvarenga, [place] [address] [place] [address] Film Coater Family Medicine 10/30/24 documented as of this encounter
--- OUTSIDE RECORDS SUMMARY | 2025-06-27 14:43 | XMS_ITS | Encounter Summary ---
Author Organization [facility] Address [address] [facility] [place] [address] Care Team Providers Care Industrial Engineering Manager Name Role Phone Singh Morse MD Unavailable [phone] Singh Morse MD Primary Care Provider Pato Lambert DO Unavailable Tuesday, Elisa TRAY ROOM WORKER Unavailable [phone] Diamond Alvarenga TAPE CALENDER Unavailable Sharifa Adams WATCH HAIRSPRING ASSEMBLER Unavailable [phone] Encounter Details Date Type Department Care Team (Late st Contact Info) Description 01/02/2024 Orders Only [facility] [address] [place] [address] [place] [address] Unallocated, Noms Provider, [address] [facility] [place] [id number] Social History Tobacco Use Types Packs/Day Years [...] week 08/03/2023 How often do you attend gnosticist or roman catholic serv ices? Never 08/03/2023 Do you belong [...] Recorded Patient Health Questionnaire-2 Score 5 08/03/2023 [facility] of Occupat ional Health - Occupational Stress [...] in a nursing home (including now)? No 08/03/2023 Education Answer Date [...] on file documented as of this encounter Procedures Procedure Name Priority Date/Time Associated Diagnosis Comments X-RAY : SPINE, LUMBAR Routine 12/30/2023 1:35 PM EDT documented in this encounter Results * X-RAY : SPINE, LUMBAR (12/30/2023 1:35 PM EDT) Anatomical Region Laterality Modality Radiographic Christy ging us Noms Provider Unallocated MD LOMBARDO XR PROCEDURES F inal Result documented in this encounter Visit Diagnoses Not on filedocumented in this encounter Additional Health Concerns Assessment Noted Time PHQ-9 Depression Total Score: 14 023 2:58 PM EDT documented as of this encounter Care Teams Industrial Engineering Manager Relationship Specialty Start Date End Date Singh Morse MD [address] [place] [address] [place] [address] PCP - [facility] 01/15/23 01/15/24 Singh Morse MD [address] [place] [address] [place] [address] PCP - General Internal Medicine 04/06/23 Pato Lambert DO [address] [place] [address] [address] [place] [address] PCP - [facility] 04/16/24 10/16/24 Sharifa Adams, DEANDRE [address] [place] [address] [place] [address] PCP - [facility] 10/17/24TuesdayElisa LPN [address] [place] [address] Licensed Practical Nurse Family Medicine 07/04/24 11/06/24 Diamond Alvarenga, [place] [address] [place] [address] Commercial Administrator Family Medicine 10/30/24 documented as of this encounter
--- OUTSIDE RECORDS SUMMARY | 2025-06-27 14:43 | XMS_ITS | Encounter Summary ---
Author Organization [facility] Address [address] [place] [address] Care Team Providers Care Religion Professor Name Role Phone Singh Morse MD Primary Care Provider Pato Lambert DO Unavailable Tuesday, Elisa DISTRIBUTION ENGINEERING TECHNOLOGIST Unavailable [phone] Diamond Alvarenga HALFTONE OPERATOR Unavailable [phone] Sharifa Adams CORPORATE OFFICER Unavailable Encounter Details Date Type Department Care Team (Late st Contact Info) Description 07/05/2024 Abstract [facility] [address] [facility] [address] Pato Lambert DO [address] [facility] [address] [place], [place] [id number] Social History Tobacco Use Types Packs/Day Years [...] Never 03/22/2024 How often do you attend mormon or uatsdin serv ices? Never 03/22/2024 Do you belong to any clubs o r organizations such as mormon groups, unions, fraternal or athletic groups, or [...] Recorded Patient Health Questionnaire-2 Score 6 02/09/2024 [facility] of Occupat ional Health - Occupational Stress [...] documented as of this encounter Care Teams Religion Professor Relationship Specialty Start Date End Date Singh Morse MD [address] [place] [address] [place] [address] PCP - General Internal Medicine 04/06/23 Pato Lambert DO 102 [facility] [address] [place], [place] [id number] PCP - [facility] 04/16/24 10/16/24 Sharifa Adams, DEANDRE [address] [place] [address] [place] [address] PCP - [facility] 10/17/24TueNasElisa yee LPN [address] [place] [address] Licensed Practical Nurse Family Medicine 07/04/24 11/06/24 Diamond Alvarenga, [place] [address] [place] [address] Plant Biology Professor Family Medicine 10/30/24 documented as of this encounter
--- OUTSIDE RECORDS SUMMARY | 2025-06-27 14:43 | XMS_ITS | Encounter Summary ---
Author Organization [facility] Address [address] [place] [address] Care Team Providers Care Audiometrist Name Role Phone Singh Morse MD Primary Care Provider [phone] Pato Lambert DO Unavailable Tuesday, Elisa FACS TEACHER Unavailable [phone] Diamond Alvarenga BOARD MILL SUPERVISOR Unavailable Sharifa Adams CANAL TENDER Unavailable Encounter Details Date Type Department Care Team (Late st Contact Info) Description 03/26/2024 Abstract [facility] 112 [facility] 110 [place] [phone] Singh Morse MD 112 [facility] 110 [place], [place] [address] Social History Tobacco Use Types Packs/Day Years [...] Never 03/22/2024 How often do you attend taoist or methodist serv ices? Never 03/22/2024 Do you belong to any clubs o r organizations such as taoist groups, unions, fraternal or athletic groups, or [...] Recorded Patient Health Questionnaire-2 Score 6 02/09/2024 [facility] of Occupat ional Health - Occupational [...] documented as of this encounter Care Teams Audiometrist Relationship Specialty Start Date End Date Singh Morse MD [address] [place] [address] [place] [address] PCP - General Internal Medicine 04/06/23 Pato Lambert DO 102 [facility] [address] [place], [place] [address] PCP - [facility] 04/16/24 10/16/24 Sharifa Adams, DEANDRE [address] [place] [address] PCP - [facility] 10/17/24TueNasElisa yee LPN [address] [place] [address] Licensed Practical Nurse Family Medicine 07/04/24 11/06/24 Diamond Alvarenga, [place] [address] [place] [address] Manufacturing Inspector Family Medicine 10/30/24 documented as of this encounter
--- OUTSIDE RECORDS SUMMARY | 2025-06-27 14:43 | XMS_ITS | Encounter Summary ---
Author Organization [facility] Address [address] [place] [address] Care Team Providers Care Web Press Operator Name Role Phone Singh Morse MD Primary Care Provider Pato Lambert DO Unavailable Tuesday, Elisa DIAMOND SAW OPERATOR Unavailable [phone] Diamond Alvarenga PROPERTY CONSULTANT Unavailable Sharifa Adams PARTS COUNTERMAN Unavailable Encounter Details Date Type Department Care Team (Late st Contact Info) Description 01/16/2024 Abstract [facility] 112 [facility] 110 [place] [address] Singh Morse MD 112 [facility] 110 [place], [place] [address] Social History Tobacco Use Types Packs/Day Years [...] week 08/03/2023 How often do you attend bahai or jain serv ices? Never 08/03/2023 Do you belong to any clubs o r organizations such as bahai groups, unions, fraternal or athletic groups, or [...] Recorded Patient Health Questionnaire-2 Score 5 08/03/2023 [facility] of Occupat ional Health - [...] slept in a longterm (including now)? No 08/03/2023 Education Answer Date [...] documented as of this encounter Care Teams Web Press Operator Relationship Specialty Start Date End Date Singh Morse MD [address] [place] [address] [place] [address] PCP - General Internal Medicine 04/06/23 Pato Lambert DO 102 [facility] [address] [place], [place] [address] PCP - [facility] 04/16/24 10/16/24 Sharifa Adams NP [address] [facility] 110 [place] [address] PCP - [facility] 10/17/24TuesdayElisa LPN [address] [place] [address] Licensed Practical Nurse Family Medicine 07/04/24 11/06/24 Diamond Alvarenga, [place] [address] [place] [address] Choirmaster Family Medicine 10/30/24 documented as of this encounter
--- OUTSIDE RECORDS SUMMARY | 2025-06-27 14:43 | XMS_ITS | Encounter Summary ---
Author Organization [facility] Address [address] [place] [address] Care Team Providers Care Fish Hatchery Worker Name Role Phone Singh Morse MD Primary Care Provider Pato Lambert DO Unavailable Tuesday, Elisa TEXTILE PIN WORKER Unavailable [phone] Diamond Alvarenga REFERRAL MANAGER Unavailable Sharifa Adams POWER TRANSFORMER ASSEMBLER Unavailable Encounter Details Date Type Department Care Team (Late st Contact Info) Description 10/11/2024 Abstract [facility] 112 [facility] 110 [place] [address] Singh Morse MD 112 [facility] 110 [place], [place] [address] Social History Tobacco Use Types Packs/Day Years [...] Never 03/22/2024 How often do you attend gnosticism or hinduism serv ices? Never 03/22/2024 Do you belong to any clubs o r organizations such as gnosticism groups, unions, fraternal or athletic groups, or [...] Recorded Patient Health Questionnaire-2 Score 6 02/09/2024 [facility] of Occupat ional Health - [...] documented as of this encounter Care Teams Fish Hatchery Worker Relationship Specialty Start Date End Date Singh Morse MD [address] [place] [address] PCP - General Internal Medicine 04/06/23 Pato Lambert DO 102 [facility] [address] [place], [place] [phone] PCP - [facility] 04/16/24 10/16/24 Sharifa Adams, EDANDRE [address] [place] [address] PCP - [facility] 10/17/24TueNasElisa yee LPN [address] [place] [address] Licensed Practical Nurse Family Medicine 07/04/24 11/06/24 Diamond Alvarenga, [place] [address] [place] [address] Shirt Presser Family Medicine 10/30/24 documented as of this encounter
--- OUTSIDE RECORDS SUMMARY | 2025-06-27 14:43 | XMS_ITS | Encounter Summary ---
Author Organization [facility] Address [address] [place] [address] Care Team Providers Care Electric Trucker Name Role Phone Singh Morse MD Primary Care Provider [phone] Pato Lambert DO Unavailable Tuesday, Elisa DATA MIGRATION CONSULTANT Unavailable [phone] Diamond Alvarenga GRAPHITE MILL OPERATOR Unavailable Sharifa Adams ELECTRICIAN YARD Unavailable [phone] Encounter Details Date Type Department Care Team (Late st Contact Info) Description 07/06/2024 Abstract [facility] 112 [facility] 110 [place] [id number] Singh Morse MD 112 [facility] 110 [place], [place] [address] Social History Tobacco Use Types Packs/Day Years [...] Never 03/22/2024 How often do you attend presybeterian or holiness serv ices? Never 03/22/2024 Do you belong to any clubs o r organizations such as presybeterian groups, unions, fraternal or athletic groups, or [...] Recorded Patient Health Questionnaire-2 Score 6 02/09/2024 [facility] of Occupat ional Health - [...] documented as of this encounter Care Teams Electric Trucker Relationship Specialty Start Date End Date Singh Morse MD [address] [place] [address] [place] [address] PCP - General Internal Medicine 04/06/23 Pato Lambert DO 102 [facility] Les[address] Catalan [place], [place] [id number] PCP - [facility] 04/16/24 10/16/24 Sharifa Adams, DEANDRE [address] [place] [address] [place] [address] PCP - [facility] 10/17/24TueNasElisa yee LPN [address] [place] [address] Licensed Practical Nurse Family Medicine 07/04/24 11/06/24 Diamond Alvarenga, [place] [address] [place] [address] Preventive Medicine Physician Family Medicine 10/30/24 documented as of this encounter
--- OUTSIDE RECORDS SUMMARY | 2025-06-27 14:43 | XMS_ITS | Encounter Summary ---
Author Organization [facility] Address [address] [facility] [place] [address] Care Team Providers Care Pack Train Driver Name Role Phone Singh Morse MD Unavailable [phone] Singh Morse MD Primary Care Provider Pato Lambert DO Unavailable Tuesday, Elisa LEGAL ASSISTANT Unavailable [phone] Diamond Alvarenga HAND BINDER STRIPPER Unavailable [phone] Sharifa Adams SCALP TREATMENT SPECIALIST Unavailable Encounter Details Date Type Department Care Team (Late st Contact Info) Description 10/18/2023 Abstract [facility] 112 [facility] 110 [place] [address] Singh Morse MD 112 [facility] 110 [place], [place] [address] Social History Tobacco Use Types Packs/Day Years [...] week 08/03/2023 How often do you attend samaritan or christianity serv ices? Never 08/03/2023 Do you belong to any clubs o r organizations such as samaritan groups, unions, fraternal or athletic groups, or [...] Recorded Patient Health Questionnaire-2 Score 5 08/03/2023 [facility] of Occupat ional Health - Occupational [...] documented as of this encounter Care Teams Pack Train Driver Relationship Specialty Start Date End Date Singh Morse MD [address] [place] [address] [place] [address] PCP - [facility] 01/15/23 01/15/24 Singh Morse MD [address] [place] [address] [place] [address] PCP - General Internal Medicine 04/06/23 Pato Lambert DO [address] [place] [address] [place] [address] PCP - [facility] 04/16/24 10/16/24 Sharifa Adams, SCALP TREATMENT SPECIALIST [address] [place] [address] [place] [address] PCP - [facility] 10/17/24TuesdayElisa LPN [address] [place] [address] Licensed Practical Nurse Family Medicine 07/04/24 11/06/24 Diamond Alvarenga, HAND BINDER STRIPPER [address] [place] [address] Depositing Machine Operator Family Medicine 10/30/24 documented as of this encounter
--- OUTSIDE RECORDS SUMMARY | 2025-06-27 14:43 | XMS_ITS | Encounter Summary ---
Author Organization [facility] Address [address] [place] [address] Care Team Providers Care Account Leader Name Role Phone Singh Morse MD Primary Care Provider [phone] Pato Lambert DO Unavailable Tuesday, Elisa GRADUATION COACH Unavailable [phone] Diamond Alvarenga ALGOLOGIST Unavailable Sharifa Adams TEACHING MANAGER Unavailable Encounter Details Date Type Department Care Team (Late st Contact Info) Description 08/13/2024 Abstract [facility] 112 [facility] 110 [place] [address] Singh Morse MD 112 [facility] 110 [place], [place] [address] Social History Tobacco Use Types Packs/Day Years [...] How often do you attend yazidi or voodoo serv ices? Never 03/22/2024 Do you belong [...] Patient Health Questionnaire-2 Score 6 02/09/2024 [facility] of Occupat ional Health - Occupational [...] documented as of this encounter Care Teams Account Leader Relationship Specialty Start Date End Date Singh Morse MD [address] [place] [address] [place] [address] PCP - General Internal Medicine 04/06/23 Pato Lambert DO 102 [facility] [address] Catalan [place], [place] [address] PCP - [facility] 04/16/24 10/16/24 Sharifa Adams, DEANDRE [address] [place] [address] [place] [address] PCP - [facility] 10/17/24TueNasElisa yee LPN [address] [place] [address] Licensed Practical Nurse Family Medicine 07/04/24 11/06/24 Diamond Alva[place]ga, [place] [address] [place] [address] Camp Coordinator Family Medicine 10/30/24 documented as of this encounter
--- OUTSIDE RECORDS SUMMARY | 2025-06-27 14:43 | XMS_ITS | Encounter Summary ---
Author Organization [facility] Address [address] [place] [address] Care Team Providers Care User Interface Designer Name Role Phone Singh Morse MD Primary Care Provider Pato Lambert DO Unavailable Tuesday, Elisa LEARNING SUPPORT TEACHER Unavailable [phone] Diamond Alvarenga SUPERVISOR BIT AND SHANK DEPARTMENT Unavailable Sharifa Adams PHYSICAL THERAPIST CENTER MANAGER Unavailable Encounter Details Date Type Department Care Team (Late st Contact Info) Description 07/09/2024 Abstract [facility] 112 [facility] 110 [place] [address] Singh Morse MD 112 [facility] 110 [place], [place] [address] Social History Tobacco Use Types Packs/Day Years [...] Never 03/22/2024 How often do you attend christian or hindu serv ices? Never 03/22/2024 Do you belong to any clubs o r organizations such as christian groups, unions, fraternal or athletic groups, or [...] Recorded Patient Health Questionnaire-2 Score 6 02/09/2024 [facility] of Occupat ional Health - Occupational [...] documented as of this encounter Care Teams User Interface Designer Relationship Specialty Start Date End Date Singh Morse MD [address] [place] [address] [place] [address] PCP - General Internal Medicine 04/06/23 Pato Lambert DO 102 [facility] [address] [place], [place] [address] PCP - [facility] 04/16/24 10/16/24 Sharifa Adams, DEANDRE [address] [place] [address] [place] [address] PCP - [facility] 10/17/24TueNasElisa yee LPN [address] [place] [address] Licensed Practical Nurse Family Medicine 07/04/24 11/06/24 Diamond Alvarenga, [place] [address] [place] [address] School Library Media Specialist Family Medicine 10/30/24 documented as of this encounter
--- OUTSIDE RECORDS SUMMARY | 2025-06-27 14:43 | XMS_ITS | Encounter Summary ---
Author Organization [facility] Address [facility] [place] [address] Care Team Providers Care Wet Process Miller Head Assistant Name Role Phone Alice Rojas Primary Care Provider Salima Larsen RN Unavailable Unavailable Source Comments In the event this information is protected by the Federal Confidentiality of Alcohol and Drug AbusePatient Records regulations: The Federal rules restrict any use of the information to criminally investigate or prosecute any alcohol or drug abuse patient.[facility] Encounter Details Date Type Department Care Team (Late st Contact Info) Description 07/26/2024 Patient M[facility] [address] [place] [address] Provider, [facility] appointment Social History Tobacco Use Types Packs/Day Years Used Date Smoking Tobacco: Former Cigarettes 2 15 Smokeless Tobacco: Never Alcohol Use Standard Drinks/Week Comments Yes 0 (1 standard drink = 0.6 oz pur e alcohol) occasionally PHQ-2 Answer Date Recorded PHQ2 Score 0 07/01/2018 Area Deprivation Index Answer Date Landen rded National Score (1-100), lower number is lower ri 77 07/23/2024 State Score (1-10), lower number is lower risk 6 07/23/2024 Data from: https://www.neighborhoodatlas.medicine.[facility].edu/. Last address used for calculation [address] 07/23/2024 Comments Yes Sex and Gender Information Value Date Recorded Sex Assigned at Female 07/31/2024 4:40 PM EDT Legal Sex Female 1:19 PM EDT Gender Identity Female 07/31/2024 4:40 PM EDT Sexual Orientation Not on file documented as of this encounter Plan of Treatment Not on file documented as of this encounter Visit Diagnoses Not on filedocumented in this encounter Additional Health Concerns Infection Onset Date Last Indicated Resolved Time COVID-19 Rule-Out 08/02/2024 08/02/2024 08/02/2024 4:31 PM EDT documented as of this encounter Care Teams Wet Process Miller Head Assistant Relationship Specialty Start Date End Date Alice Rojas DO PCP - General Family Medicine 09/21/16 Salima Larsen, product marketing executiveElectric Trucker Maternal Medicine 07/20/24 08/31/24 documented as of this encounter
--- OUTSIDE RECORDS SUMMARY | 2025-06-27 14:43 | XMS_ITS | Encounter Summary ---
Author Organization [facility] Address [address] [place] [address] Care Team Providers Care Senior Analyst Name Role Phone Singh Morse MD Primary Care Provider Pato Lambert DO Unavailable Tuesday, Elisa SHELTER DIRECTOR Unavailable [phone] Diamond Alvarenga EDUCATION AND OUTREACH COORDINATOR Unavailable [phone] Sharifa Adams MULTIMEDIA PRODUCER Unavailable [phone] Encounter Details Date Type Department Care Team (Late st Contact Info) Description 02/23/2024 Abstract [facility] 112 [facility] 110 [place] [address] Singh Morse MD 112 [facility] 110 [place], [place] [address] Social History Tobacco Use Types Packs/Day Years [...] week 08/03/2023 How often do you attend confucianist or gnosticist serv ices? Never 08/03/2023 Do you belong to any clubs o r organizations such as confucianist groups, unions, fraternal or athletic groups, or [...] Patient Health Questionnaire-2 Score 6 02/09/2024 [facility] of Occupat ional Health - Occupational [...] slept in a fdc (including now)? No 08/03/2023 Education Answer Date [...] documented as of this encounter Care Teams Senior Analyst Relationship Specialty Start Date End Date Singh Morse MD [address] [place] [address] PCP - General Internal Medicine 04/06/23 Pato Lambert DO 102 [facility] [address] Catalan [place], [place] [address] PCP - [facility] 04/16/24 10/16/24 Sharifa Adams NP [address] [facility] 110 [place] [address] PCP - [facility] 10/17/24TuesdayElisa LPN [address] [place] [address] Licensed Practical Nurse Family Medicine 07/04/24 11/06/24 Diamond Alvarenga, [place] [address] [place] [address] Gift Manager Family Medicine 10/30/24 documented as of this encounter
--- OUTSIDE RECORDS SUMMARY | 2025-06-27 14:43 | XMS_ITS | Encounter Summary ---
Author Organization [facility] Address [address] [place] [address] Care Team Providers Care Automobile Inspector Name Role Phone Singh Morse MD Primary Care Provider Pato Lambert DO Unavailable Tuesday, Elisa MERCERIZING RANGE FEEDER Unavailable [phone] Diamond Alvarenga PLASTICS ENGINEERING TEACHER Unavailable Sharifa Adams SECONDARY EDUCATION PROFESSOR Unavailable [phone] Encounter Details Date Type Department Care Team (Late st Contact Info) Description 08/13/2024 Abstract [facility] 112 [facility] 110 [place] [address] Singh Morse MD 112 [facility] 110 [place], [place] [address] Social History Tobacco Use Types Packs/Day Years [...] How often do you attend taoist or church serv ices? Never 03/22/2024 Do you belong [...] Recorded Patient Health Questionnaire-2 Score 6 02/09/2024 [facility] of Occupat ional Health - [...] documented as of this encounter Care Teams Automobile Inspector Relationship Specialty Start Date End Date Singh Morse MD [address] [place] [address] PCP - General Internal Medicine 04/06/23 Pato Lambert DO 102 [facility] [address] [place], [place] [address] PCP - [facility] 04/16/24 10/16/24 Sharifa Adams, DEANDRE [address] [place] [address] PCP - [facility] 10/17/24TueNasElisa yee LPN [address] [place] [address] Licensed Practical Nurse Family Medicine 07/04/24 11/06/24 Diamond Alvarenga, [place] [address] [place] [address] Account Support Manager Family Medicine 10/30/24 documented as of this encounter
--- OUTSIDE RECORDS SUMMARY | 2025-06-27 14:43 | XMS_ITS | Encounter Summary ---
Author Organization [facility] Address [address] [place] [address] Care Team Providers Care Furniture Sprayer Name Role Phone Singh Morse MD Primary Care Provider [phone] Pato Lambert DO Unavailable Tuesday, Elisa SACK CLEANER Unavailable [phone] Diamond Alvarenga EVENT PROMOTIONS COORDINATOR Unavailable [phone] Monique Mesa NP Unavailable Encounter Details Date Type Department Care Team (Late st Contact Info) Description 07/06/2024 Clinisync Result Encounter [facility] External Department Unsolicited Monique Mesa, SAND TECHNICIAN [address] [facility] 110 [place] [address] Social History Tobacco Use Types Packs/Day Years [...] How often do you attend catholic or presybeterian serv ices? Never 03/22/2024 Do you belong [...] Recorded Patient Health Questionnaire-2 Score 6 02/09/2024 [facility] of Occupat ional Health - Occupational Stress [...] Procedure Name Priority Date/Time Associated Diagnosis Comments XR ABDOMEN MIN 2V 07/06/2024 7:4 5 AM EDT documented in this encounter Results * XR ABDOMEN MIN 2V (07/06/2024 7:45 AM EDT) Anatomical Region Laterality Modality Other 07/06/2024 7:45 AM EDT Narrative 07/06/2024 7:48 AM EDT [address] [address] XRay Report Signed Patient: CHRISTINA THOMSON MR#: [id number] : 1985 Acct:[id number] Age/Sex: 38 / F ADM Date: 07/04/24 Loc: RAD Attending Dr: MONIQUE MESA Ordering Physician: MONIQUE MESA Date of Service: 07/04/24 Procedure(s): XR abdomen min 2V Accession Number(s): [id number] cc: SINGH MORSE ; MONIQUE MESA [address] [address] Patient Name: CHRISTINA THOMSON MRN: [id number] date: 1985 Sex: F Assigned Patient Location: [facility] Current Patient Location: Accession/Order Number: [id number] Exam Date: 07/04/2024 15:45 Report Date: 07/06/2024 07:45 At the request of: MONIQUE MESA Procedure: XR abdomen min 2V EXAMINATION: XR abdomen min 2V HISTORY: Bowel trouble K63.9 COMPARISON: No relevant comparison available. FINDINGS: BOWEL GAS PATTERN: Moderate amount of stool identified throughout the colon. Pelayo intrauterine gestation with a cephalic presentation CALCIFICATIONS: Calcified mass measuring 13.1 cm transversely in the central abdomen, CT exam demonstrates this to be calcification of a remote burst type vertebral body fractures. Spinal fixation hardware thoracic spine with no mechanical failure. Remote internal fixation of left pelvic fractures. OTHER: Negative. No abnormal gaseous collections. XR/XR abdomen min 2V IMPRESSION: Pelayo intrauterine gestation Moderate amount of stool throughout the colon Electronically authenticated by: NAYELI NORRIS Date: 07/06/2024 07:45 Dictated By: Nayeli Norris M.D. Signed By: 07/06/24 0748 DD/ 0745 TD/TT: Tube Trailer Filler: Procedure Note Radiology, Radiologist, MD - 07/06/[address] [address] XRay Report Signed Patient: CHRISTINA THOMSON MMR#: [id number] : 1985Acct:[id number] Age/Sex: 38 / FADM Date: 07/04/24 Loc: RAD Attending Dr: MONIQUE MESA Ordering Physician: MONIQUE MESA Date of Service: 07/04/24 Procedure(s): XR abdomen min 2V Accession Number(s): [id number] cc: SINGH MORSE ; MONIQUE MESA The [address] [address] Patient Name: CHRISTINA THOMSON MRN: [id number] date: 1985 Sex: F Assigned Patient Location: RAD Current Patient Location: Accession/Order Number: [id number] Exam Date: 07/04/2024 15:45 Report Date: 07/06/2024 07:45 At the request of: MONIQUE MESA Procedure: XR abdomen min 2V EXAMINATION: XR abdomen min 2V HISTORY: Bowel trouble K63.9 COMPARISON: No relevant comparison available. FINDINGS: BOWEL GAS PATTERN: Moderate amount of stool identified throughout thecolon. Pelayo intrauterine gestation with a cephalic presentation CALCIFICATIONS: Calcified mass measuring 13.1 cm transversely in thecentral abdomen, CT exam demonstrates this to be calcification of a remote bursttype vertebral body fractures. Spinal fixation hardware thoracic spine with no mechanical failure. Remote internal fixation of left pelvic fractures. OTHER: Negative. No abnormal gaseous collections. XR/XR abdomen min 2V IMPRESSION: Pelayo intrauterine gestation Moderate amount of stool throughout the colon Electronically authenticated by: NAYELI NORRIS Date: 07/06/2024 07:45 Dictated By: Nayeli Norris M.D. Signed By:07/06/24 0748 DD/ TD/TT: Tube Trailer Filler: us Monique Mesa SAND TECHNICIAN [facility] Final Resu lt documented in this encounter Visit Diagnoses Not on filedocumented in this encounter Additional Health Concerns Assessment Noted Time PHQ-9 Depression Total Score: 19 04//2 024 3:25 PM EDT documented as of this encounter Care Teams Furniture Sprayer Relationship Specialty Start Date End Date Singh Morse MD [address] [place] [address] PCP - General Internal Medicine 04/06/23 Pato Lambert DO 102 [facility] [address] [place], [place] [address] PCP - [facility] 04/16/24 10/16/24 Monique Mesa, SAND TECHNICIAN [address] [place] [address] PCP - [facility] 10/17/24Tuesday, LEO Pérez [address] [place] [address] Licensed Practical Nurse Family Medicine 07/04/24 11/06/24 Diamond Alvarenga, [place] [address] [place] [address] Catalogue Maker Family Medicine 10/30/24 documented as of this encounter
--- OUTSIDE RECORDS SUMMARY | 2025-06-27 14:43 | XMS_ITS | Encounter Summary ---
Author Organization [facility] Address [address] [place] [address] Care Team Providers Care Supervisor Sewer System Name Role Phone Singh Morse MD Primary Care Provider [phone] Pato Lambert DO Unavailable Tuesday, Elisa MANAGER SALT Unavailable [phone] Diamond Alvarenga PHOTOCOMPOSITION KEYBOARD OPERATOR Unavailable [phone] Sharifa Adams SYSTEMS SOFTWARE DEVELOPER Unavailable Encounter Details Date Type Department Care Team (Late st Contact Info) Description 07/09/2024 Abstract [facility] 112 [facility] 110 [place] [address] Singh Morse MD 112 [facility] 110 [place], [place] [address] Social History Tobacco Use Types Packs/Day Years [...] Never 03/22/2024 How often do you attend temple or restorationist serv ices? Never 03/22/2024 Do [...] Recorded Patient Health Questionnaire-2 Score 6 02/09/2024 [facility] of Occupat ional [...] documented as of this encounter Care Teams Supervisor Sewer System Relationship Specialty Start Date End Date Singh Morse MD [address] [place] [address] PCP - General Internal Medicine 04/06/23 Pato Lambert DO [address] [facility] [address] Catalan [place], [place] [address] PCP - [facility] 04/16/24 10/16/24 Sharifa Adams, DEANDRE [address] [place] [address] PCP - [facility] 10/17/24TueNasElisa yee LPN [address] [place] [address] Licensed Practical Nurse Family Medicine 07/04/24 11/06/24 Diamond Alvarenga, [place] [address] [place] [address] Citrus Fruit Packer Family Medicine 10/30/24 documented as of this encounter
--- OUTSIDE RECORDS SUMMARY | 2025-06-27 14:43 | XMS_ITS | Encounter Summary ---
Author Organization [facility] Address [address] [facility] [place] [address] Care Team Providers Care Appeals Reviewer Veteran Name Role Phone Singh Morse MD Primary Care Provider [phone] Pato Lambert DO Unavailable Tuesday, Elisa ECONOMIST RESEARCH ASSISTANT Unavailable [phone] Diamond Alvarenga SHUTTLE REPAIRER Unavailable Sharifa Adams SANITATION WORKER CLEANING EQUIPMENT Unavailable Reason for Visit * Reason Onset Date Comments Med Refill 09/17/2024 Encounter Details Date Type Department Care Team (Late st Contact Info) Description 09/17/2024 [facility] 112 [facility] 110 [place] [phone] Mely Wayne PA 112 [facility] 110 [place] [address] Other chronic pain; Recurrent UTI; URI, acute Social History Tobacco Use Types Packs/Day Years [...] Never 03/22/2024 How often do you attend episcopalian or tenriism serv ices? Never 03/22/2024 Do you belong to any clubs o r organizations such as episcopalian groups, unions, fraternal or athletic groups, or [...] Recorded Patient Health Questionnaire-2 Score 6 02/09/2024 [facility] of Occupat ional Health - Occupational Stress [...] encounter Miscellaneous Notes * Telephone Encounter - Cyndi Norwoodeldon - 09/25/2024 10:44 AM EST lvm unable to contact letter sent * Telephone Encounter - Cyndi Bills - 09/21/2024 9:45 AM EST Lvm * Telephone Encounter - Cyndi Bills - 09/17/2024 2:41 PM EST MAIL BOX FULL UNABLE TO LVM * Telephone Encounter - TORSTEN Lopez - 09/17/2024 12:53 PM EST Please help pt get scheduled for controlled medication follow up in mid October. OARRS reviewed, Rx sent into patient's pharmacy. documented in this encounter Plan of Treatment Not on file documented as of this encounter Visit Diagnoses Diagnosis Other chronic pain Recurrent UTI Urinary tract infection, site not specified URI, acute Acute upper respiratory infections of unspecified site documented in this encounter Additional Health Concerns Assessment Noted Time PHQ-9 Depression Total Score: 19 02/08/2 024 3:25 PM EDT documented as of this encounter Care Teams Appeals Reviewer Veteran Relationship Specialty Start Date End Date Singh Morse MD [address] [place] [address] PCP - General Internal Medicine 04/06/23 Pato Lambert DO [address] [place] [address] [place] [address] PCP - [facility] 04/16/24 10/16/24 Sharifa Adams NP [address] [place] [address] PCP - [facility] 10/17/24Tuesday, LEO Pérez [address] [place] [address] Licensed Practical Nurse Family Medicine 07/04/24 11/06/24 Diamond Alvarenga, [place] [address] [place] [address] Manager [place] Family Medicine 10/30/24 documented as of this encounter
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
--- OUTSIDE RECORDS SUMMARY | 2025-06-27 14:44 | XMS_ITS | Encounter Summary ---
Author Organization [facility] Address [address] [facility] [place] [address] Care Team Providers Care [place] Program Coordinator Name Role Phone Singh Morse MD Unavailable [phone] Singh Morse MD Primary Care Provider Pato Lambert DO Unavailable Tuesday, Elisa FOOD SERVICE WORK[facility] Unavailable [phone] Diamond Alvarenga EMBROIDERY SPECIALIST Unavailable [phone] Sharifa Adams WEALTH MANAGEMENT ADVISOR Unavailable [phone] Encounter Details Date Type Department Care Team (Late st Contact Info) Description 09/19/2023 Orders Only [facility] [address] [facility] [address] [place] [address] A, Unknown Practice [address] [place] [address] Social History Tobacco Use Types Packs/Day Years [...] week 08/03/2023 How often do you attend scientology or yarsanism serv ices? Never 08/03/2023 Do you belong [...] Recorded Patient Health Questionnaire-2 Score 5 08/03/2023 [facility] - Occupational Stress Questionnaire Answer Date Recorded [...] Procedure Name Priority Date/Time Associated Diagnosis Comments US PELVIS TRANSVAGINAL Routine 09/18/2023 2:18 PM EST documented in this encounter Results * US pelvis transvaginal (09/18/2023 2:18 PM EST) Anatomical Region Laterality Modality Pelvis Ultrasound us Unknown Practice A IMG US PROCEDURES Final Resul t documented in this encounter Visit Diagnoses Not on filedocumented in this encounter Additional Health Concerns Assessment Noted Time PHQ-9 Depression Total Score: 14 023 2:58 PM EDT documented as of this encounter Care Teams [place] Program Coordinator Relationship Specialty Start Date End Date Singh Morse MD [address] [place] [address] [place] [address] PCP - [facility] 01/15/23 01/15/24 Singh Morse MD [address] [facility] [address] [place] [address] PCP - General Internal Medicine 04/06/23 Pato Lambert DO [address] [place] [id number] PCP - [facility] 04/16/24 10/16/24 Sharifa Adams, DEANDRE [address] [facility] [address] [place] [address] PCP - [facility] 10/17/24TueNasElisa yee LPN [address] [facility] [address] [place] [address] Licensed Practical Nurse Family Medicine 07/04/24 11/06/24 Diamond Alvarenga, [place] [address] [place] [address] Director Group Sales Family Medicine 10/30/24 documented as of this encounter
--- OUTSIDE RECORDS SUMMARY | 2025-06-27 14:44 | XMS_ITS | Encounter Summary ---
Author Organization [facility] Address [address] [facility] [place] [address] Care Team Providers Care Newspaper Copy Editor Name Role Phone Singh Morse MD Unavailable [phone] Singh Morse MD Primary Care Provider [phone] Pato Lambert DO Unavailable Tuesday, Elisa LINE INSTALLER REPAIRER Unavailable [phone] Diamond Alvarenga MODELING MANAGER Unavailable Sharifa Adams DRILLING ENGINEER Unavailable Encounter Details Date Type Department Care Team (Late st Contact Info) Description 09/19/2023 [facility] [address] [facility] 110 [place] [address] Singh Morse MD 112 [facility] 110 [place], [place] [phone] Social History Tobacco Use Types Packs/Day Years [...] How often do you attend temple or temple serv ices? Never 08/03/2023 Do you belong [...] Recorded Patient Health Questionnaire-2 Score 5 08/03/2023 [facility]at ional [facility] - [...] place to sleep or slept in a care home (including now)? No 08/03/2023 Education Answer [...] documented as of this encounter Care Teams Newspaper Copy Editor Relationship Specialty Start Date End Date Singh Morse MD [address] [place] [address] [place] [address] PCP - [facility] 01/15/23 01/15/24 Singh Morse MD [address] [place] [address] [place] [address] PCP - General Internal Medicine 04/06/23 Pato Lambert DO [address] [place] [address] [place] [address] PCP - [facility] 04/16/24 10/16/24 Sharifa Adams, DRILLING ENGINEER [address] [place] [address] [place] [address] PCP - [facility] 10/17/24TuesdayElisa LPN [address] [place] [address] Licensed Practical Nurse Family Medicine 07/04/24 11/06/24 Diamond Alvarenga, MODELING MANAGER [address] [place] [address] University Manager Family Medicine 10/30/24 documented as of this encounter
--- OUTSIDE RECORDS SUMMARY | 2025-06-27 14:44 | XMS_ITS | Encounter Summary ---
Author Organization [facility] Address [address] [place] [address] Care Team Providers Care Sap Bobj Developer Name Role Phone Dalton Saez MD Unavailable [phone] Nathalia Justice MD Unavailable [phone] Tracy Jacobsen THERAPY ADMINISTRATIVE ASSISTANT-HOSE MAKER Unavailable [phone] Evelina Durham THERAPY ADMINISTRATIVE ASSISTANT-HOSE MAKER Unavailable [phone] Encounter Details Date Type Department Care Team (Late st Contact Info) Description 06/06/2015 Prep for Surgery [facility] Plastic Surgery [address] [place] [address] [phone] Gabriele Laboy MD [address] [place] [address] Social History Tobacco Use Types Packs/Day Years Used Date Smoking Tobacco: Former Comments:09/2014 quit smokin g Comments Unknown Sex and Gender Information Value [...] Infection Onset Date Last Indicated Resolved Time Rule-Out C. difficile 03/28/2020 03/28/20202019 9:16 PM EDT Rule-Out C. difficile 01/25/2021 01/25/20212020 8:15 AM EDT documented as of this encounter Care Teams Sap Bobj Developer Relationship Specialty Start Date End Date Dalton Saez MD [address] [place] [phone] Physician Orthopaedic Surgery 07/22/20 Nathalia Justice MD [address] [place] [address] Physician Infectious Diseases 07/22/20 Tracy Jacobsen APRN-ELIZABETH [address] [place] [phone] FEED PROJECT ENGINEER Infectious Diseases 03/20/21 Evelina Durham APRN-ELIZABETH [address] [place] [address] [place] [address] FEED PROJECT ENGINEER Infectious Diseases 05/22/21 documented as of this encounter
--- OUTSIDE RECORDS SUMMARY | 2025-06-27 14:44 | XMS_ITS | Encounter Summary ---
Author Organization [facility] Address [address] [facility], [address] [place] [address] Care Team Providers Care Retail Consultant Name Role Phone Alice Rojas DO Primary Care Provider [phone] Encounter Details Date Type Department Care Team (Late st Contact Info) Description 04/07/2016 Post-op Telephone [facility] General Surgery [address] [place] [address] Paola Davila RN Social History Tobacco Use Types Packs/Day Years Used Date Smoking Tobacco: Former Cigarettes Q uit: 09/23/2014 Alcohol Use Standard Drinks/Week Comments Yes 0 (1 standard drink = 0.6 oz pur e alcohol) Comments No Sex and Gender Information Value [...] documented as of this encounter Care Teams Retail Consultant Relationship Specialty Start Date End Date Alice Rojas DO PCP - General 06/09/16 documented as of this encounter
--- OUTSIDE RECORDS SUMMARY | 2025-06-27 14:44 | XMS_ITS | Encounter Summary ---
Author Organization [facility] Address [address] [facility] [place] [address] Care Team Providers Care Drug And Alcohol Counsellor Name Role Phone Singh Morse MD Unavailable Singh Morse MD Primary Care Provider [phone] Pato Lambert DO Unavailable Tuesday, Elisa SCHOOL LEADER Unavailable [phone] Diamond Alvarenga SPRAY PAINTING MACHINE OPERATOR Unavailable [phone] Sharifa Adams COMMISSARY OFFICER Unavailable [phone] Encounter Details Date Type Department Care Team (Late st Contact Info) Description 09/27/2023 Orders Only [facility] [address] [facility] [address] [place] [address] A, Unknown Practice [address] [place] [address] Social History Tobacco Use Types [...] week 08/03/2023 How often do you attend amish or synagogue serv ices? Never 08/03/2023 Do you belong to any clubs o r organizations such as amish groups, unions, fraternal or athletic groups, or [...] Recorded Patient Health Questionnaire-2 Score 5 08/03/2023 [facility] - Occupational Stress Questionnaire Answer Date [...] Associated Diagnosis Comments US PELVIS TRANSVAGINAL Routine 09/27/2023 11:55 AM EST documented in this encounter Results * US pelvis transvaginal (09/27/2023 11:55 AM EST) Anatomical Region Laterality Modality Pelvis Ultrasound us Unknown Practice A IMG US PROCEDURES Final Resul t documented in this encounter Visit Diagnoses Not on filedocumented in this encounter Additional Health Concerns Assessment Noted Time PHQ-9 Depression Total Score: 14 023 2:58 PM EDT documented as of this encounter Care Teams Drug And Alcohol Counsellor Relationship Specialty Start Date End Date Singh Morse MD [address] [place] [address] [place] [address] PCP - [facility] 01/15/23 01/15/24 Singh Morse MD [address] [facility] [address] [place] [address] PCP - General Internal Medicine 04/06/23 Pato Lambert DO [address] [place] [id number] PCP - [facility] 04/16/24 10/16/24 Sharifa Adams, DEANDRE [address] [facility] [address] [place] [address] PCP - [facility] 10/17/24TueNasElisa yee LPN [address] [facility] [address] [place] [address] Licensed Practical Nurse Family Medicine 07/04/24 11/06/24 Diamond Alvarenga, [place] [address] [place] [address] Mill Oiler Family Medicine 10/30/24 documented as of this encounter
--- OUTSIDE RECORDS SUMMARY | 2025-06-27 14:44 | XMS_ITS | Encounter Summary ---
Author Organization [facility] Address [address] [place] [address] Care Team Providers Care Drapery And Upholstery Estimator Name Role Phone Dalton Saez MD Unavailable [phone] Nathalia Justice MD Unavailable [phone] Tracy Jacobsen BINDER CASER-NAPRAPATH Unavailable [phone] Evelina Durham BINDER CASER-NAPRAPATH Unavailable [phone] Encounter Details Date Type Department Care Team (Late st Contact Info) Description 08/26/2021 Abstract PATIENT ACUITY SCORE Social History Tobacco [...] on filedocumented in this encounter Care Teams Drapery And Upholstery Estimator Relationship Specialty Start Date End Date Dalton Saez MD [address] [place] [address] Physician Orthopaedic Surgery 07/22/20 Nathalia Justice MD [address] [place] [address] Physician Infectious Diseases 07/22/20 Tracy Jacobsen APRN-ELIZABETH [address] [place], [place] [phone] VISCOSE CELLAR CHARGE HAND Infectious Diseases 03/20/21 Evelina Durham APRN-ELIZABETH [address] [place], [place] [phone] VISCOSE CELLAR CHARGE HAND Infectious Diseases 05/22/21 documented as of this encounter
--- OUTSIDE RECORDS SUMMARY | 2025-06-27 14:44 | XMS_ITS | Encounter Summary ---
Author Organization [facility] Address [address] [place] [address] Care Team Providers Care Scrap Breaker Name Role Phone Dalton Saez MD Unavailable [phone] Nathalia Justice MD Unavailable [phone] Tracy Jacobsen LIBRARY TECHNICIAN-RADIAL DRILL OPERATOR Unavailable [phone] Evelina Durham LIBRARY TECHNICIAN-RADIAL DRILL OPERATOR Unavailable [phone] Encounter Details Date Type Department Care Team (Late st Contact Info) Description 07/26/2015 Procedure Visit Initial Department Assigned, To Be Social History Tobacco Use Types Packs/Day Years Used Date Smoking Tobacco: Former Cigarettes Smokeless Tobacco: Never Comments:09/2014 quit smokin g Alcohol Use Standard Drinks/Week Comments Yes 0 (1 standard drink = 0.6 oz pur e alcohol) rare Substance Use Types Use/Week Comments No Comments [...] 6:18 PM EDT Roxana Krueger RN * Difficulty with errands? Answer Date of Assessment Author No 07/11/2015 6:18 PM EDT Roxana Krueger RN documented as of this encounter Mental Status * Cognitive difficulty? Answer Entry Date Author No 07/11/2015 6:18 PM EDT Roxana Krueger RN documented in this encounter Plan of Treatment Not on file documented as of this encounter Visit Diagnoses Not on filedocumented in this encounter Additional Health Concerns Infection Onset Date Last Indicated Resolved Time Rule-Out C. difficile 03/28/2020 03/28/20202019 9:16 PM EDT Rule-Out C. difficile 01/25/2021 01/25/20212020 8:15 AM EDT documented as of this encounter Care Teams Scrap Breaker Relationship Specialty Start Date End Date Dalton Saez MD [address] [place], [place] [phone] Physician Orthopaedic Surgery 07/22/20 Nathalia Justice MD [address] [place], [place] [phone] Physician Infectious Diseases 07/22/20 Tracy Jacobsen APRN-ELIZABETH [address] [place], [place] [id number] PSYCHIATRIC CLINICAL NURSE SPECIALIST Infectious Diseases 03/20/21 Evelina Durham APRN-ELIZABETH [address] [place] [address] PSYCHIATRIC CLINICAL NURSE SPECIALIST Infectious Diseases 05/22/21 documented as of this encounter
--- OUTSIDE RECORDS SUMMARY | 2025-06-27 14:44 | XMS_ITS | Encounter Summary ---
Author Organization [facility] Address [address] [facility] [place] [address] Care Team Providers Care Estate Planning Counselor Name Role Phone Singh Morse MD Unavailable [phone] Singh Morse MD Primary Care Provider Pato Lambert DO Unavailable Tuesday, Elisa SENIOR HEALTH EDUCATOR Unavailable [phone] Diamond Alvarenga TRANSPORTATION SUPERINTENDENT Unavailable Sharifa Adams MACHINE RUG CLEANER Unavailable Encounter Details Date Type Department Care Team (Late st Contact Info) Description 09/30/2023 [facility] [address] [facility] 110 [place] [address] Singh Morse MD [address] [facility] [address] [place], [place] [address] Social History Tobacco Use Types Packs/Day Years [...] week 08/03/2023 How often do you attend jainism or quaker serv ices? Never 08/03/2023 Do you belong to any clubs o r organizations such as jainism groups, unions, fraternal or athletic groups, or [...] Recorded Patient Health Questionnaire-2 Score 5 08/03/2023 [facility] of Occupat ional Health - Occupational Stress [...] place to sleep or slept in a custodial (including now)? No 08/03/2023 Education Answer Date [...] documented as of this encounter Care Teams Estate Planning Counselor Relationship Specialty Start Date End Date Singh Morse MD [address] [place] [address] [place] [address] PCP - [facility] 01/15/23 01/15/24 Singh Morse MD [address] [place] [address] [place] [address] PCP - General Internal Medicine 04/06/23 Pato Lambert DO [address] [place] [address] [place] [address] [facility] - [facility] 04/16/24 10/16/24 Shariaf Adams, MACHINE RUG CLEANER [address] [place] [address] [place] [address] [facility] - [facility] 10/17/24TuesdayElisa LPN [address] [place] [address] Licensed Practical Nurse Family Medicine 07/04/24 11/06/24 Diamond Avlarenga, TRANSPORTATION SUPERINTENDENT [address] [place] [address] Mural Painter Family Medicine 10/30/24 documented as of this encounter
--- OUTSIDE RECORDS SUMMARY | 2025-06-27 14:44 | XMS_ITS | Encounter Summary ---
Author Organization [facility] Address [address] [place] [address] Care Team Providers Care Play Reader Name Role Phone Dalton Saez MD Unavailable [phone] Nathalia Justice MD Unavailable [phone] Tracy Jacobsen ELASTIC TAPE INSERTER-CLARIFIER OPERATOR HELPER Unavailable [phone] Evelina Durham ELASTIC TAPE INSERTER-CLARIFIER OPERATOR HELPER Unavailable [phone] Encounter Details Date Type Department Care Team (Late st Contact Info) Description 09/18/2021 Prep for Surgery [facility] [address] [place], [place] [id number] Jayshree Winn DDS [address] [place], [place] [id number] Social History Tobacco Use Types Packs/Day Years [...] caries documented in this encounter Care Teams Play Reader Relationship Specialty Start Date End Date Dalton Saez MD [address] [place] [address] Physician Orthopaedic Surgery 07/22/20 Nathalia Justice MD [address] [place], [place] [id number] Physician Infectious Diseases 07/22/20 Tracy Jacobsen APRN-CLARIFIER OPERATOR HELPER [address] [place] [address] ASSISTANT BRANCH MANAGER Infectious Diseases 03/20/21 Evelina Durham APRN-ELIZABETH [address] [place], [place] [phone] ASSISTANT BRANCH MANAGER Infectious Diseases 05/22/21 documented as of this encounter
--- OUTSIDE RECORDS SUMMARY | 2025-06-27 14:44 | XMS_ITS | Encounter Summary ---
Author Organization [facility] Address [address] [facility], [address] [place] [address] Care Team Providers Care Market Intelligence Consultant Name Role Phone Alice Rojas DO Primary Care Provider [phone] Encounter Details Date Type Department Care Team (Late st Contact Info) Description 04/05/2016 PAT Telephone [facility] Pre-Admit Testing [address] [id number] Katie Torres, RN Social History Tobacco Use Types Packs/Day [...] documented as of this encounter Care Teams Market Intelligence Consultant Relationship Specialty Start Date End Date Alice Rojas DO PCP - General 06/09/16 documented as of this encounter
--- OUTSIDE RECORDS SUMMARY | 2025-06-27 14:44 | XMS_ITS | Clinical Summary ---
Author Organization [facility] Address [address] [place] [address] Phone Care Team Providers Care Box Covering Machine Operator Name Role Phone Unavailable Primary Care Provider Unavailabl e Social History Tobacco Use Types Packs/Day Years Used Date Smoking Tobacco: Never Assessed Comments Unknown Sex and Gender Information Value Date Recorded Sex Assigned at Not on file Legal Sex Female 9:48 AM EST Gender Identity Not on file Sexual Orientation Not on file Plan of Treatment Not on file
--- OUTSIDE RECORDS SUMMARY | 2025-06-27 14:44 | XMS_ITS | Encounter Summary ---
Author Organization [facility] Address [address] [facility] [place] [address] Care Team Providers Care Director Of Market Intelligence Name Role Phone Dalton Saez MD Unavailable [phone] Nathalia Justice MD Unavailable [phone] Tracy Jacobsen [employer] CERTIFIED NETWORK ASSOCIATE-RN ELIGIBILITY Unavailable [phone] Evelina Durham [employer] CERTIFIED NETWORK ASSOCIATE-RN ELIGIBILITY Unavailable [phone] Encounter Details Date Type Department Care Team (Late st Contact Info) Description 08/26/2021 Results Only [facility] Infectious Disease [facility] [address] [facility] [place], [place] [phone] Evelina Durham APRN-RN ELIGIBILITY [address] [facility] [place], [place] [phone] Social History Tobacco Use Types Packs/Day Years [...] Procedure Name Priority Date/Time Associated Diagnosis Comments C-REACTIVE PROTEIN Routine 08/24/2021 documented in this encounter Results * C-REACTIVE PROTEIN (08/24/2021) C-Reactive Protein 0.6 0.0 - 0.8 mg/dL [facility] Blood BLOOD SPECIMEN / Unknown 08/24/2021 [facility] GENERAL LAB Final Resu lt Performing Organization Address City/State/[facility] Co de Phone Number [facility] [address] [phone] documented in this encounter Visit Diagnoses Not on filedocumented in this encounter Care Teams Director Of Market Intelligence Relationship Specialty Start Date End Date Dalton Saez MD [address] [place], [place] [phone] Physician Orthopaedic Surgery 07/22/20 Nathalia Justice MD [address] [place], [place] [address] Physician Infectious Diseases 07/22/20 Tracy Jacobsen APRN-RN ELIGIBILITY [address] [place] [address] BUYER ASSISTANT Infectious Diseases 03/20/21 Evelina Durham APRN-RN ELIGIBILITY [address] [place] [address] BUYER ASSISTANT Infectious Diseases 05/22/21 documented as of this encounter
--- OUTSIDE RECORDS SUMMARY | 2025-06-27 14:44 | XMS_ITS | Encounter Summary ---
Author Organization [facility] Address [address] [facility], [address] [place] [address] Care Team Providers Care Municipal Services Manager Name Role Phone Alice Rojas DO Primary Care Provider [phone] Encounter Details Date Type Department Care Team (Late st Contact Info) Description 08/11/2016 PAT Telephone [facility] Pre-Admit Testing [address] [place], [place] [phone] Jen Doe RN Social History Tobacco Use Types Packs/Day Years Used Date Smoking Tobacco: Former Cigarettes Q uit: 09/23/2014 Alcohol Use Standard Drinks/Week Comments Yes 0 (1 standard drink = 0.6 oz pur e alcohol) MIXED DRINK 1 A MONTH Comments No Sex and Gender Information Value Date Recorded Sex Assigned at Not on file Legal Sex Female 6:48 AM EST Gender Identity Not on file Sexual Orientation Not on file documented as of this encounter Last Filed Vital Signs Vital Sign Reading Time Taken Comments Blood Pressure - - Pulse - - Temperature - - Respiratory Rate - - Oxygen Saturation - - Inhaled Oxygen Concentration - - Weight 99.8 kg (220 lb) 08/11/2016 9:18 AM EDT Height 167.6 cm (5' 6 ) 08/11/2016 9:18 AM EDT Body Mass Index 35.51 08/11/2016 9:18 AM EDT documented in this encounter Plan of Treatment Not on file documented as of this encounter Visit Diagnoses Not on filedocumented in this encounter Additional Health Concerns Infection Onset Date Last Indicated Resolved Time ESBL (Extended Spectrum Beta Lactamase) Comment:E.coli- urine 07/202408/13/2024 08/15/2024 documented as of this encounter Care Teams Municipal Services Manager Relationship Specialty Start Date End Date Alice Rojas DO PCP - General 06/09/16 documented as of this encounter
--- OUTSIDE RECORDS SUMMARY | 2025-06-27 14:44 | XMS_ITS | Encounter Summary ---
Author Organization [facility] Address [address] [facility] [place] [address] Care Team Providers Care Quality Assurance Tech Name Role Phone Singh Morse MD Unavailable [phone] Singh Morse MD Primary Care Provider [phone] Pato Lambert DO Unavailable Tuesday, Elisa BOWL ATTENDANT Unavailable [phone] Diamond Alvarenga LOOP DRIER OPERATOR Unavailable Sharifa Adams FENCE SUPERVISOR Unavailable [phone] Encounter Details Date Type Department Care Team (Late st Contact Info) Description 09/22/2023 [facility] [address] [facility] 110 [place] [address] Singh Morse MD [address] [facility] 110 [place], [place] [phone] Social History Tobacco Use Types Packs/Day Years [...] week 08/03/2023 How often do you attend sikh or holiness serv ices? Never 08/03/2023 Do you belong to any clubs o r organizations such as sikh groups, unions, fraternal or athletic groups, or [...] Recorded Patient Health Questionnaire-2 Score 5 08/03/2023 [facility] of Occupat ional Health - [...] documented as of this encounter Care Teams Quality Assurance Tech Relationship Specialty Start Date End Date Singh Morse MD [address] [place] [address] [place] [address] PCP - [facility] 01/15/23 01/15/24 Singh Morse MD [address] [place] [address] PCP - General Internal Medicine 04/06/23 Pato Lambert DO [address] [place] [address] [place] [address] PCP - [facility] 04/16/24 10/16/24 Sharifa Adams, FENCE SUPERVISOR [address] [place] [address] [place] [address] PCP - [facility] 10/17/24TuesdayElisa LPN [address] [place] [address] Licensed Practical Nurse Family Medicine 07/04/24 11/06/24 Diamond Alvarenga, LOOP DRIER OPERATOR [address] [place] [address] Project Geophysicist Family Medicine 10/30/24 documented as of this encounter
--- OUTSIDE RECORDS SUMMARY | 2025-06-27 14:44 | XMS_ITS | Encounter Summary ---
Author Organization [facility] Address [facility] [id number] [address] [place] [address] Care Team Providers Care Collection Officer Name Role Phone Unavailable Primary Care Provider Unavailabl e Encounter Details Date Type Department Care Team (Late st Contact Info) Description 07/05/2024 Orders Only [facility] [place] [address] Transcribe, Orders Support User Pain (Primary Dx) Social History Tobacco Use Types Packs/Day Years Used Date Smoking Tobacco: Every Day Cigarettes Comments Yes Sex and Gender Information Value Date Recorded Sex Assigned at Not on file Legal Sex Female 6:00 PM EDT Gender Identity Not on file Sexual Orientation Not on file documented as of this encounter Plan of Treatment Not on file documented as of this encounter Results * CT abdomen and pelvis without contrast (07/04/2024 5:10 PM EDT) us Scanning Provider External IMG CT ORDERABLES Fin al Result * X-ray abdomen complete series with pa chest (07/04/2024 3:45 PM EDT) us Scanning Provider External IMG DIAGNOSTIC IMAGIN G ORDERABLES Final Result documented in this encounter Visit Diagnoses Diagnosis Pain- Primary Generalized pain documented in this encounter Additional Health Concerns Infection Onset Date Last Indicated Resolved Time COVID-19 Rule-Out 07/05/2024 07/05/2024 07/05/2024 10:23 AM EDT documented as of this encounter
--- OUTSIDE RECORDS SUMMARY | 2025-06-27 14:44 | XMS_ITS | Encounter Summary ---
Author Organization [facility] Address [address] [facility] [place] [address] Care Team Providers Care Director Of Consulting Services Name Role Phone Dalton Saez MD Unavailable [phone] Nathalia Justice MD Unavailable [phone] Tracy Jacobsen DATA MODELING ARCHITECT-REGISTERED NURSE MATERNAL CHILD Unavailable [phone] Evelina Durham DATA MODELING ARCHITECT-REGISTERED NURSE MATERNAL CHILD Unavailable [phone] Encounter Details Date Type Department Care Team (Late st Contact Info) Description 11/05/2020 Results Only [facility] Infectious Disease [facility] [address] [facility] [address] [place], [place] [id number] Evelina Durham APRN-REGISTERED NURSE MATERNAL CHILD [address] [facility] [place], [place] [id number] Social History Tobacco Use Types Packs/Day Years [...] Date/Time Associated Diagnosis Comments C-REACTIVE PROTEIN Routine 08/03/2021 COMPLETE BLOOD COUNT W/DIFF Routine 06/08/2021 HEPATIC FUNCTION PANEL Routine 06/08/2021 BASIC METABOLIC PANEL Routine 06/08/2021 C-REACTIVE PROTEIN Routine 06/08/2021 COMPLETE BLOOD COUNT W/DIFF Routine 05/29/2021 HEPATIC FUNCTION PANEL Routine 05/29/2021 BASIC METABOLIC PANEL Routine 05/29/2021 C-REACTIVE PROTEIN Routine 05/29/2021 C-REACTIVE PROTEIN Routine 05/25/2021 C-REACTIVE PROTEIN Routine 05/18/2021 COMPLETE BLOOD COUNT W/DIFF Routine 05/11/2021 HEPATIC FUNCTION PANEL Routine 05/11/2021 BASIC METABOLIC PANEL Routine 05/11/2021 C-REACTIVE PROTEIN Routine 05/11/2021 C-REACTIVE PROTEIN Routine 04/29/2021 COMPLETE BLOOD COUNT W/DIFF Routine 04/28/2021 HEPATIC FUNCTION PANEL Routine 04/28/2021 BASIC METABOLIC PANEL Routine 04/28/2021 C-REACTIVE PROTEIN Routine 04/13/2021 C-REACTIVE PROTEIN Routine 03/30/2021 HEPATIC FUNCTION PANEL Routine 3:51 AM EDT VANCOMYCIN TROUGH Routine 03/09/2021 3:5 1 AM EDT COMPLETE BLOOD COUNT W/DIFF Routine 03/09/2021 BASIC METABOLIC PANEL Routine 03/09/2021 VANCOMYCIN TROUGH Routine 03/02/2021 3:5 8 AM EDT COMPLETE BLOOD COUNT W/DIFF Routine 03/02/2021 HEPATIC FUNCTION PANEL Routine 03/02/2021 BASIC METABOLIC PANEL Routine 03/02/2021 C-REACTIVE PROTEIN Routine 03/02/2021 COMPLETE BLOOD COUNT W/DIFF Routine 02/23/2021 HEPATIC FUNCTION PANEL Routine 02/23/2021 BASIC METABOLIC PANEL Routine 02/23/2021 VANCOMYCIN TROUGH Routine 02/23/2021 VANCOMYCIN TROUGH Routine 02/19/2021 COMPLETE BLOOD COUNT W/DIFF Routine 02/16/2021 HEPATIC FUNCTION PANEL Routine 02/16/2021 BASIC METABOLIC PANEL Routine 02/16/2021 C-REACTIVE PROTEIN Routine 02/16/2021 VANCOMYCIN TROUGH Routine 02/16/2021 COMPLETE BLOOD COUNT W/DIFF Routine 02/09/2021 HEPATIC FUNCTION PANEL Routine 02/09/2021 BASIC METABOLIC PANEL Routine 02/09/2021 VANCOMYCIN TROUGH Routine 02/09/2021 BASIC METABOLIC PANEL Routine 02/02/2021 C-REACTIVE PROTEIN Routine 02/02/2021 VANCOMYCIN TROUGH Routine 02/02/2021 HEPATIC FUNCTION PANEL Routine 01/05/2021 BASIC METABOLIC PANEL Routine 01/05/2021 ERYTHROCYTE SEDIMENTATION RATE Routine 12/08/2020 C-REACTIVE PROTEIN Routine 12/08/2020 C-REACTIVE PROTEIN Routine 12/01/2020 ERYTHROCYTE SEDIMENTATION RATE Routine 11/10/2020 C-REACTIVE PROTEIN Routine 11/10/2020 ERYTHROCYTE SEDIMENTATION RATE Routine 11/03/2020 C-REACTIVE PROTEIN Routine 11/03/2020 ERYTHROCYTE SEDIMENTATION RATE Routine 10/27/2020 C-REACTIVE PROTEIN Routine 10/27/2020 documented in this encounter Results * C-REACTIVE PROTEIN (08/03/2021) C-Reactive Protein 0.3 <=10.0 mg/dL [facility] Blood BLOOD SPECIMEN / Unknown 08/03/2021 Provider Non-[facility] GENERAL LAB Final Resu lt Performing Organization Address [facility] de Phone Number [facility] [address] [place] [address] * HEPATIC FUNCTION PANEL (06/08/2021) Protein, Total [facility] Albumin [facility] Bilirubin, Direct [facility] Bilirubin, Total [facility] Alkaline Phosphatase [facility] ALT (SGPT) 10 0 - 40 IU/L [facility] AST (SGOT) 10 0 - 40 IU/L [facility] Blood BLOOD SPECIMEN / Unknown 06/08/2021 Provider Non-[facility] GENERAL LAB Final Resu lt Performing Organization Address [facility] Phone Number [facility] [address] [place] [address] * (ABNORMAL) C-REACTIVE PROTEIN (06/08/2021) C-Reactive Protein 2.7(A) 0.0 - 0.8 mg/dL [facility] Blood BLOOD SPECIMEN / Unknown 06/08/2021 Provider Non-[facility] GENERAL LAB Final Resu lt Performing Organization Address [facility] Phone Number [facility] [address] [place] [address] * COMPLETE BLOOD COUNT W/DIFF (06/08/2021) WBC 5.9 4.5 - 11.5 K/uL [facility] Hemoglobin 13.8 12.0 - 15.0 g/dL [facility] Platelet 227 150 - 400 x10-3/uL [facility] Neutrophil # 2.30 1.50 - 8.00 K/uL [facility] Blood BLOOD SPECIMEN / Unknown 06/08/2021 us Provider Non-[facility] GENERAL LAB Final Resu lt Performing Organization Address [facility] de Phone Number [facility] [address] [place] [address] * (ABNORMAL) BASIC METABOLIC PANEL (06/08/2021) Sodium [facility] Potassium [facility] Chloride [facility] Carbon Dioxide [facility] BUN [facility] Glucose [facility] Creatinine 0.4(A) 0.5 - 1.5 mg/dL [facility] Anion Gap [facility] Calcium [facility] Blood BLOOD SPECIMEN / Unknown 06/08/2021 [facility] Final Resu lt Performing Organization Address [facility] de Phone Number [facility] [address] [place] [phone] * (ABNORMAL) C-REACTIVE PROTEIN (05/29/2021) C-Reactive Protein 1.2(A) 0.0 - 0.8 mg/dL [facility] Blood BLOOD SPECIMEN / Unknown 05/29/2021 us Provider Non-[facility] 98 GENERAL LAB Final Resu lt Performing Organization Address [facility] de Phone Number [facility] [address] [place] [id number] * HEPATIC FUNCTION PANEL (05/29/2021) Protein, Total [facility] Albumin [facility] Bilirubin, Direct [facility] Bilirubin, Total [facility] Alkaline Phosphatase [facility] ALT (SGPT) 12 0 - 40 IU/L [facility] AST (SGOT) 9 0 - 40 IU/L [facility] Blood BLOOD SPECIMEN / Unknown 05/29/2021 Provider Non-[facility] GENERAL LAB Final Resu lt Performing Organization Address [facility] de Phone Number [facility] [address] [place] [address] * COMPLETE BLOOD COUNT W/DIFF (05/29/2021) WBC 7.3 4.5 - 11.5 K/uL [facility] Hemoglobin 13.6 12.0 - 15.0 g/dL [facility] Platelet 227 150 - 400 x10-3/uL [facility] Neutrophil # 3.20 1.50 - 8.00 K/uL [facility] Blood BLOOD SPECIMEN / Unknown 05/29/2021 Provider Non-[facility] GENERAL LAB Final Resu lt [facility] [address] [place] [address] * (ABNORMAL) BASIC METABOLIC PANEL (05/29/2021) Sodium [facility] Potassium [facility] Chloride [facility] Carbon Dioxide [facility] BUN [facility] Glucose [facility] Creatinine 0.4(A) 0.5 - 1.5 mg/dL [facility] Anion Gap [facility] Calcium [facility] Blood BLOOD SPECIMEN / Unknown 05/29/2021 Provider Non-[facility] GENERAL LAB Final Resu lt [facility] [address] [place] [address] * C-REACTIVE PROTEIN (05/25/2021) C-Reactive Protein 1.4 mg/dL [facility] Blood BLOOD SPECIMEN / Unknown 05/25/2021 Provider Non-[facility] GENERAL LAB Final Resu lt [facility] [address] [place] [address] * (ABNORMAL) C-REACTIVE PROTEIN (05/18/2021) C-Reactive Protein 3.8(A) 0.0 - 0.8 mg/dL [facility] Blood BLOOD SPECIMEN / Unknown 05/18/2021 Provider Non-[facility] 98 GENERAL LAB Final Resu lt Performing Organization Address [facility] Co de Phone Number [facility] [address] [place] [address] * HEPATIC FUNCTION PANEL (05/11/2021) Protein, Total [facility] Albumin [facility] Bilirubin, Direct [facility] Bilirubin, Total [facility] Alkaline Phosphatase [facility] ALT (SGPT) 11 0 - 40 IU/L [facility] AST (SGOT) 10 0 - 40 IU/L [facility] Blood BLOOD SPECIMEN / Unknown 05/11/2021 Provider Non-[facility] 98 GENERAL LAB Final Resu lt Performing Organization Address [facility] de Phone Number [facility] [address] [place] [address] * COMPLETE BLOOD COUNT W/DIFF (05/11/2021) WBC 6.9 4.5 - 11.5 K/uL [facility] Hemoglobin 13.4 12.0 - 15.0 g/dL [facility] Platelet 202 150 - 400 x10-3/uL [facility] Neutrophil # 3.10 1.50 - 8.00 K/uL [facility] Blood BLOOD SPECIMEN / Unknown 05/11/2021 Provider Non-[facility] 98 GENERAL LAB Final Resu lt Performing Organization Address [facility] Co de Phone Number [facility] [address] [place] [address] * BASIC METABOLIC PANEL (05/11/2021) Sodium [facility] Potassium [facility] Chloride [facility] Carbon Dioxide [facility] BUN 14 5 - 26 mg/dL [facility] Glucose [facility] Creatinine 0.5 0.5 - 1.5 mg/dL [facility] Anion Gap [facility] Calcium [facility] Blood BLOOD SPECIMEN / Unknown 05/11/2021 [facility] LAB Final Resu lt Performing Organization Address [facility] Co de Phone Number [facility] [address] [place] [address] * (ABNORMAL) C-REACTIVE PROTEIN (05/11/2021) C-Reactive Protein 2.9(A) 0.0 - 0.8 mg/dL [facility] Blood BLOOD SPECIMEN / Unknown 05/11/2021 Provider Non-[place] [address] GENERAL LAB Final Resu lt Performing Organization Address [facility] Phone Number [facility] [address] [place] [address] * (ABNORMAL) C-REACTIVE PROTEIN (04/29/2021) C-Reactive Protein 1.4(A) 0.0 - 0.8 mg/dL [facility] Blood BLOOD SPECIMEN / Unknown 04/29/2021 Provider Non-[place] [address] GENERAL LAB Final Resu lt Performing Organization Address [facility] Phone Number [facility] [address] [place] [address] * HEPATIC FUNCTION PANEL (04/28/2021) Protein, Total [facility] Albumin [facility] Bilirubin, Direct [facility] Bilirubin, Total [facility] Alkaline Phosphatase [facility] ALT (SGPT) 11 0 - 40 IU/L [facility] AST (SGOT) 9 0 - 40 IU/L [facility] Blood BLOOD SPECIMEN / Unknown 04/28/2021 [place] [address] GENERAL LAB Final Resu lt Performing Organization Address [facility] de Phone Number [facility] [address] [place] [address] * (ABNORMAL) COMPLETE BLOOD COUNT W/DIFF (04/28/2021) WBC 5.7 4.5 - 11.5 K/uL [facility] Hemoglobin 13.8 12.0 - 15.0 g/dL [facility] Platelet 217 150 - 400 x10-3/uL [facility] Neutrophil # 8.10(A) 1.50 - 8.00 K/uL [facility] Blood BLOOD SPECIMEN / Unknown 04/28/2021 Provider Non-[facility] 98 GENERAL LAB Final Resu lt Performing Organization Address [facility] Co de Phone Number [facility] [address] [place] [address] * (ABNORMAL) BASIC METABOLIC PANEL (04/28/2021) Sodium [facility] Potassium [facility] Chloride [facility] Carbon Dioxide [facility] BUN [facility] Glucose [facility] Creatinine 0.4(A) 0.5 - 1.5 mg/dL [facility] Anion Gap [facility] Calcium [facility] Blood BLOOD SPECIMEN / Unknown 04/28/2021 [facility] GENERAL LAB Final Resu lt Performing Organization Address [facility] de Phone Number [facility] [address] [place] [address] * (ABNORMAL) C-REACTIVE PROTEIN (04/13/2021) C-Reactive Protein 1.2(A) 0.0 - 0.8 mg/dL [facility] Blood BLOOD SPECIMEN / Unknown 04/13/2021 [facility] GENERAL LAB Final Resu lt Performing Organization Address [facility] de Phone Number [facility] [address] [place] [address] * (ABNORMAL) C-REACTIVE PROTEIN (03/30/2021) C-Reactive Protein 1.4(A) 0.0 - 0.8 mg/dL [facility] Blood BLOOD SPECIMEN / Unknown 03/30/2021 [facility] GENERAL LAB Final Resu lt Performing Organization Address [facility] Co de Phone Number [facility] [address] [place] [address] * HEPATIC FUNCTION PANEL (03/09/2021 3:51 AM EDT) Protein, Total [facility] Albumin [facility] Bilirubin, Direct [facility] Bilirubin, Total [facility] Alkaline Phosphatase [facility] ALT (SGPT) 12 0 - 40 IU/L [facility] AST (SGOT) 14 0 - 40 IU/L [facility] Blood BLOOD SPECIMEN / Unknown 03/09/2021 3:51 AM EDT Provider [place] [address] GENERAL LAB Final Resu lt Performing Organization Address [facility] de Phone Number [facility] [address] [place] [address] * VANCOMYCIN TROUGH (03/09/2021 3:51 AM EDT) Vancomycin Trough 18.6 10.0 - 20.0 ug/mL [facility] Blood BLOOD SPECIMEN / Unknown 03/09/2021 3:51 AM EDT Result [facility] Provider Non-[place] [address] GENERAL LAB Final Resu lt Performing Organization Address [facility] Phone Number [facility] [address] [place] [address] * COMPLETE BLOOD COUNT W/DIFF (03/09/2021) Pathologist [facility] WBC 5.2 4.5 - 11.5 K/uL [facility] Hemoglobin 13.5 12.0 - 15.0 g/dL [facility] Hematocrit 42.3 36.0 - 46.0 % [facility] Platelet 247 150 - 400 x10-3/uL [facility] Blood BLOOD SPECIMEN / Unknown 03/09/2021 Provider Non-[place] [address] GENERAL LAB Final Resu lt Performing Organization Address [facility] de Phone Number [facility] [address] [place] [address] * (ABNORMAL) BASIC METABOLIC PANEL (03/09/2021) Sodium [facility] Potassium [facility] Chloride [facility] Carbon Dioxide [facility] BUN 12 5 - 26 mg/dL [facility] Glucose [facility] Creatinine 0.4(A) 0.5 - 1.5 mg/dL [facility] Anion Gap [facility] Calcium [facility] Blood BLOOD SPECIMEN / Unknown 03/09/2021 us Provider Non-[facility] 98 GENERAL LAB Final Resu lt Performing Organization Address [facility] de Phone Number [facility] [address] [place] [address] * VANCOMYCIN TROUGH (03/02/2021 3:58 AM EDT) Pathologist [facility] Vancomycin Trough 17.1 10.0 - 20.0 ug/mL [facility] Blood BLOOD SPECIMEN / Unknown 03/02/2021 3:58 AM EDT Provider Non-[facility] 98 GENERAL LAB Final Resu lt Performing Organization Address [facility] de Phone Number [facility] [address] [place] [address] * C-REACTIVE PROTEIN (03/02/2021) Pathologist [facility] C-Reactive Protein 0.3 0.0 - 0.8 mg/dL [facility] Blood BLOOD SPECIMEN / Unknown 03/02/2021 [facility] GENERAL LAB Final Resu lt Performing Organization Address [facility] de Phone Number [facility] [address] [place] [address] * HEPATIC FUNCTION PANEL (03/02/2021) Pathologist [facility] Protein, Total [facility] Albumin [facility] Bilirubin, Direct [facility] Bilirubin, Total [facility] Alkaline Phosphatase [facility] ALT (SGPT) 8 0 - 40 IU/L [facility] AST (SGOT) 11 0 - 40 IU/L [facility] Blood BLOOD SPECIMEN / Unknown 03/02/2021 [facility] GENERAL LAB Final Resu lt Performing Organization Address [facility] de Phone Number [facility] [address] [place] [address] * COMPLETE BLOOD COUNT W/DIFF (03/02/2021) Pathologist [facility] WBC 5.5 4.5 - 11.5 K/uL [facility] Hemoglobin 13.0 12.0 - 15.0 g/dL [facility] Hematocrit 39.5 36.0 - 46.0 % [facility] Platelet 217 150 - 400 x10-3/uL [facility] Blood BLOOD SPECIMEN / Unknown 03/02/2021 us Provider Non-[facility] 98 GENERAL LAB Final Resu lt Performing Organization Address [facility] Co de Phone Number [facility] [address] [place] [address] * (ABNORMAL) BASIC METABOLIC PANEL (03/02/2021) Sodium [facility] Potassium [facility] Chloride [facility] Carbon Dioxide [facility] BUN 14 5 - 26 mg/dL [facility] Glucose [facility] Creatinine 0.4(A) 0.5 - 1.5 mg/dL [facility] Anion Gap [facility] Calcium [facility] Blood BLOOD SPECIMEN / Unknown 03/02/2021 Provider Non-[facility] 98 GENERAL LAB Final Resu lt Performing Organization Address [facility] de Phone Number [facility] [address] [place] [address] * VANCOMYCIN TROUGH (02/23/2021) Vancomycin Trough 15.0 10.0 - 20.0 ug/mL [facility] Blood BLOOD SPECIMEN / Unknown 02/23/2021 Provider Non-[facility] 98 GENERAL LAB Final Resu lt Performing Organization Address [facility] de Phone Number [facility] [address] [place] [address] * HEPATIC FUNCTION PANEL (02/23/2021) Protein, Total [facility] Albumin [facility] Bilirubin, Direct [facility] Bilirubin, Total [facility] Alkaline Phosphatase [facility] ALT (SGPT) 6 0 - 40 IU/L [facility] AST (SGOT) 9 0 - 40 IU/L [facility] Blood BLOOD SPECIMEN / Unknown 02/23/2021 Provider Non-[facility] 98 GENERAL LAB Final Resu lt Performing Organization Address [facility] de Phone Number [facility] [address] [place] [address] * (ABNORMAL) COMPLETE BLOOD COUNT W/DIFF (02/23/2021) WBC 5.8 4.5 - 11.5 K/uL [facility] Hemoglobin 12.3 12.0 - 15.0 g/dL [facility] Hematocrit 37.6 36.0 - 46.0 % [facility] Platelet 147(A) 150 - 400 x10-3/uL [facility] Blood BLOOD SPECIMEN / Unknown 02/23/2021 Provider Non-[facility] 98 GENERAL LAB Final Resu lt Performing Organization Address [facility] Co de Phone Number [facility] [address] [place] [address] * (ABNORMAL) BASIC METABOLIC PANEL (02/23/2021) Sodium [facility] Potassium [facility] Chloride [facility] Carbon Dioxide [facility] BUN 8 5 - 26 mg/dL [facility] Glucose [facility] Creatinine 0.3(A) 0.5 - 1.5 mg/dL [facility] Anion Gap [facility] Calcium [facility] Blood BLOOD SPECIMEN / Unknown 02/23/2021 Provider Non-[facility] 98 GENERAL LAB Final Resu lt Performing Organization Address [facility] de Phone Number [facility] [address] [place] [address] * VANCOMYCIN TROUGH (02/19/2021) Vancomycin Trough 18.4 10.0 - 20.0 ug/mL [facility] Blood BLOOD SPECIMEN / Unknown 02/19/2021 Provider Non-[facility] 98 GENERAL LAB Final Resu lt Performing Organization Address [facility] de Phone Number [facility] [address] [place] [address] * VANCOMYCIN TROUGH (02/16/2021) Vancomycin Trough 15.1 10.0 - 20.0 ug/mL [facility] Blood BLOOD SPECIMEN / Unknown 02/16/2021 Provider Non-[facility] 98 GENERAL LAB Final Resu lt Performing Organization Address [facility] de Phone Number [facility] [address] [place] [address] * C-REACTIVE PROTEIN (02/16/2021) C-Reactive Protein 0.4 0.0 - 0.8 mg/dL [facility] Blood BLOOD SPECIMEN / Unknown 02/16/2021 [facility] Final Resu lt Performing Organization Address [facility] de Phone Number [facility] [address] [place] [address] * HEPATIC FUNCTION PANEL (02/16/2021) Protein, Total [facility] Albumin [facility] Bilirubin, Direct [facility] Bilirubin, Total [facility] Alkaline Phosphatase [facility] ALT (SGPT) 7 0 - 40 IU/L [facility] AST (SGOT) 11 0 - 40 IU/L [facility] Blood BLOOD SPECIMEN / Unknown 02/16/2021 Provider Non-[facility] 98 GENERAL LAB Final Resu lt Performing Organization Address [facility] de Phone Number [facility] [address] [place] [address] * COMPLETE BLOOD COUNT W/DIFF (02/16/2021) WBC 5.4 4.5 - 11.5 K/uL [facility] Hemoglobin 13.7 12.0 - 15.0 g/dL [facility] Hematocrit 42.3 36.0 - 46.0 % [facility] Platelet 227 150 - 400 x10-3/uL [facility] Blood BLOOD SPECIMEN / Unknown 02/16/2021 Provider Non-[facility] 98 GENERAL LAB Final Resu lt Performing Organization Address [facility] de Phone Number [facility] [address] [place] [address] * (ABNORMAL) BASIC METABOLIC PANEL (02/16/2021) Sodium [facility] Potassium [facility] Chloride [facility] Carbon Dioxide [facility] BUN 11 5 - 26 mg/dL [facility] Glucose [facility] Creatinine 0.4(A) 0.5 - 1.5 mg/dL [facility] Anion Gap [facility] Calcium [facility] Blood BLOOD SPECIMEN / Unknown 02/16/2021 [facility] GENERAL LAB Final Resu lt Performing Organization Address [facility] de Phone Number [facility] [address] [place] [address] * (ABNORMAL) VANCOMYCIN TROUGH (02/09/2021) Vancomycin Trough 27.1(A) 10.0 - 20.0 ug/mL [facility] Blood BLOOD SPECIMEN / Unknown 02/09/2021 Provider Non-[facility] 98 GENERAL LAB Final Resu lt Performing Organization Address [facility] de Phone Number [facility] [address] [place] [address] * HEPATIC FUNCTION PANEL (02/09/2021) Protein, Total [facility] Albumin [facility] Bilirubin, Direct [facility] Bilirubin, Total [facility] Alkaline Phosphatase [facility] ALT (SGPT) 4 0 - 40 IU/L [facility] AST (SGOT) 8 0 - 40 IU/L [facility] Blood BLOOD SPECIMEN / Unknown 02/09/2021 Provider Non-[facility] 98 GENERAL LAB Final Resu lt Performing Organization Address [facility] de Phone Number [facility] [address] [place] [address] * COMPLETE BLOOD COUNT W/DIFF (02/09/2021) WBC 5.5 4.5 - 11.5 K/uL [facility] Hemoglobin 12.6 12.0 - 15.0 g/dL [facility] Hematocrit 39.8 36.0 - 46.0 % [facility] Platelet 281 150 - 400 x10-3/uL [facility] Blood BLOOD SPECIMEN / Unknown 02/09/2021 Provider [place] [address] GENERAL LAB Final Resu lt Performing Organization Address City/[facility] Co de Phone Number [facility] [address] [place] [address] * BASIC METABOLIC PANEL (02/09/2021) Sodium [facility] Potassium [facility] Chloride [facility] Carbon Dioxide [facility] BUN 13 5 - 26 mg/dL [facility] Glucose [facility] Creatinine 0.5 0.5 - 1.5 mg/dL [facility] Anion Gap [facility] Calcium [facility] Blood BLOOD SPECIMEN / Unknown 02/09/2021 Provider Non-[facility] 98 GENERAL LAB Final Resu lt Performing Organization Address [facility] de Phone Number [facility] [address] [place] [address] * VANCOMYCIN TROUGH (02/02/2021) Pathologist [facility] Vancomycin Trough 18.4 10.0 - 20.0 ug/mL [facility] Blood BLOOD SPECIMEN / Unknown 02/02/2021 Provider Non-[facility] 98 GENERAL LAB Final Resu lt Performing Organization Address [facility] de Phone Number [facility] [address] [place] [address] * (ABNORMAL) BASIC METABOLIC PANEL (02/02/2021) Pathologist [facility] Sodium [facility] Potassium [facility] Chloride [facility] Carbon Dioxide [facility] BUN 6 5 - 26 mg/dL [facility] Glucose [facility] Creatinine 0.3(A) 0.5 - 1.5 mg/dL [facility] Anion Gap [facility] Calcium [facility] Blood BLOOD SPECIMEN / Unknown 02/02/2021 [facility] GENERAL LAB Final Resu lt Performing Organization Address [facility] de Phone Number [facility] [address] [place] [address] * (ABNORMAL) C-REACTIVE PROTEIN (02/02/2021) [facility] C-Reactive Protein 1.8(A) 0.0 - 0.8 mg/dL [facility] Blood BLOOD SPECIMEN / Unknown 02/02/2021 Provider Non-[facility] 98 GENERAL LAB Final Resu lt Performing Organization Address [facility] Co de Phone Number [facility] [address] [place] [address] * HEPATIC FUNCTION PANEL (01/05/2021) Protein, Total [facility] Albumin [facility] Bilirubin, Direct [facility] Bilirubin, Total [facility] Alkaline Phosphatase [facility] ALT (SGPT) 8 0 - 40 IU/L [facility] AST (SGOT) 9 0 - 40 IU/L [facility] Blood BLOOD SPECIMEN / Unknown 01/05/2021 Provider Non-[facility] 98 GENERAL LAB Final Resu lt Performing Organization Address [facility] [facility] Co de Phone Number [facility] [address] [place] [address] * (ABNORMAL) BASIC METABOLIC PANEL (01/05/2021) Sodium [facility] Potassium [facility] Chloride [facility] Carbon Dioxide [facility] BUN 17 5 - 26 mg/dL [facility] Glucose [facility] Creatinine 0.3(A) 0.5 - 1.5 mg/dL [facility] Anion Gap [facility] Calcium [facility] Blood BLOOD SPECIMEN / Unknown 01/05/2021 Provider [facility] GENERAL LAB Final Resu lt Performing Organization Address [facility] Co de Phone Number [facility] [address] [place] [address] * ERYTHROCYTE SEDIMENTATION RATE (12/08/2020) Sed Rate (ESR) 13 0 - 20 mm/hr [facility] Blood BLOOD SPECIMEN / Unknown 12/08/2020 [facility] GENERAL LAB Final Resu lt Performing Organization Address [facility] Co de Phone Number [facility] [address] [place] [address] * (ABNORMAL) C-REACTIVE PROTEIN (12/08/2020) C-Reactive Protein 1.7(A) 0.0 - 0.8 mg/dL [facility] Blood BLOOD SPECIMEN / Unknown 12/08/2020 Provider Non-[facility] 98 GENERAL LAB Edited Res ult - Final Performing Organization Address [facility] Co de Phone Number [facility] [address] [place] [address] * (ABNORMAL) C-REACTIVE PROTEIN (12/01/2020) C-Reactive Protein 1.38(A) 0.0 - 0.8 mg/dL [facility] Blood BLOOD SPECIMEN / Unknown 12/01/2020 Provider Non-[facility] 98 GENERAL LAB Final Resu lt Performing Organization Address [facility] de Phone Number [facility] [address] [place] [address] * ERYTHROCYTE SEDIMENTATION RATE (11/10/2020) Sed Rate (ESR) 42 mm/hr [facility] Blood BLOOD SPECIMEN / Unknown 11/10/2020 Provider Non-[facility] 98 GENERAL LAB Final Resu lt Performing Organization Address [facility] de Phone Number [facility] [address] [place] [address] * C-REACTIVE PROTEIN (11/10/2020) C-Reactive Protein 2.6 mg/dL [facility] Blood BLOOD SPECIMEN / Unknown 11/10/2020 us Provider Non-[facility] 98 GENERAL LAB Final Resu lt Performing Organization Address [facility] Co de Phone Number [facility] [address] [place] [address] * (ABNORMAL) ERYTHROCYTE SEDIMENTATION RATE (11/03/2020) Sed Rate (ESR) 70(A) 0 - 20 mm/hr [facility] Blood BLOOD SPECIMEN / Unknown 11/03/2020 us Provider Non-[facility] 98 GENERAL LAB Final Resu lt Performing Organization Address [facility] de Phone Number [facility] [address] [place] [address] * (ABNORMAL) C-REACTIVE PROTEIN (11/03/2020) C-Reactive Protein 2.5(A) 0.0 - 0.8 mg/dL [facility] Blood BLOOD SPECIMEN / Unknown 11/03/2020 [facility] GENERAL LAB Final Resu lt Performing Organization Address [facility] Phone Number [facility] [address] [place] [address] * (ABNORMAL) ERYTHROCYTE SEDIMENTATION RATE (10/27/2020) Pathologist [facility] Sed Rate (ESR) 74(A) 0 - 20 mm/hr [facility] Blood BLOOD SPECIMEN / Unknown 10/27/2020 [facility] GENERAL LAB Final Resu lt Performing Organization Address [facility] Phone Number [facility] [address] [place] [address] * (ABNORMAL) C-REACTIVE PROTEIN (10/27/2020) Pathologist [facility] C-Reactive Protein 4.4(A) 0.0 - 0.8 mg/dL [facility] Blood BLOOD SPECIMEN / Unknown 10/27/2020 [place] [address] GENERAL LAB Final Resu lt Performing Organization Address [facility] Phone Number [facility] [address] [place] [address] documented in this encounter Visit Diagnoses Not on filedocumented in this encounter Additional Health Concerns Infection Onset Date Last Indicated Resolved Time Rule-Out C. difficile 01/25/2021 01/25/20212020 8:15 AM EDT documented as of this encounter Care Teams Director Of Consulting Services Relationship Specialty Start Date End Date Dalton Saez MD [address] [place] [address] Physician Orthopaedic Surgery 07/22/20 Nathalia Justice MD [address] [place] [address] Physician Infectious Diseases 07/22/20 Tracy Jacobsen APRN-REGISTERED NURSE MATERNAL CHILD [address] [place] [address] CVICU RN Infectious Diseases 03/20/21 Evelina Durham APRN-REGISTERED NURSE MATERNAL CHILD [address] [facility] [place] [address] CVICU RN Infectious Diseases 05/22/21 documented as of this encounter
--- OUTSIDE RECORDS SUMMARY | 2025-06-27 14:44 | XMS_ITS | Encounter Summary ---
Author Organization [facility] Address [address] [place] [address] Care Team Providers Care Lightout Examiner Name Role Phone Singh Morse MD Unavailable [phone] Singh Morse MD Primary Care Provider [phone] Pato Lambert DO Unavailable Tuesday, Elisa WAX BLENDER Unavailable [phone] Diamond Alvarenga SWEATBAND MAKER Unavailable [phone] Monique Mesa NP Unavailable Encounter Details Date Type Department Care Team (Late st Contact Info) Description 01/01/2024 Clinisync Result Encounter [facility] External Department Unsolicited Monique Mesa NP [address] [facility] [address] [place] [address] Social History Tobacco Use Types Packs/Day Years [...] week 08/03/2023 How often do you attend jew or temple serv ices? Never 08/03/2023 Do you belong to any clubs o r organizations such as jew groups, unions, fraternal or athletic groups, or [...] Recorded Patient Health Questionnaire-2 Score 5 08/03/2023 [facility] [place] of Occupat ional Health - Occupational Stress [...] Name Priority Date/Time Associated Diagnosis Comments XR LUMBAR SPINE 6V W BENDING 01/01/2024 12:34 PM EDT documented in this encounter Results * XR LUMBAR SPINE 6V W BENDING (01/01/2024 12:34 PM EDT) Anatomical Region Laterality Modality Other 01/01/2024 12:3 4 PM EDT Narrative 01/01/2024 12:36 PM EDT [address] [address] XRay Report Signed Patient: TYESHA THOMSON MR#: [id number] : 1985 Acct:[id number] Age/Sex: 38 / F ADM Date: 12/30/23 Loc: [facility] Attending Dr: MONIQUE MESA Ordering Physician: MONIQUE MESA Date of Service: 12/30/23 Procedure(s): XR lumbar spine 6V w bending Accession Number(s): [id number] cc: SINGH MORSE ; MONIQUE MESA [place] [address] Patient Name: TYESHA THOMSON MRN: [id number] date: 1985 Sex: F Assigned Patient Location: [facility] Current Patient Location: Accession/Order Number: [id number] Exam Date: 12/30/2023 13:05 Report Date: 01/01/2024 12:34 At the request of: MONIQUE MESA Procedure: XR lumbar spine 6V w bending EXAMINATION: XR lumbar spine 6V w bending HISTORY: Acute midline low back pain without sciatica M54.50 COMPARISON: CT abdomen pelvis 09/18/2023 FINDINGS: BONES: Marked posterior dislocation of the upper lumbar spine in relation to the lower lumbar spine with fracture fragments and exuberant heterotopic bone formation bridging the junction. Prior mechanical fusion of the left sacroiliac joint. Posterior mechanical fusion of the visible thoracic spine. DISC SPACES: No appreciable significant disc space narrowing. PARASPINOUS: Filter within the IVC. OTHER: Negative. XR/XR lumbar spine 6V w bending IMPRESSION: 1. Grossly stable significant posttraumatic changes of the lumbar spine with transection of the spine, remote fractured vertebral bodies, and significant posterior displacement of the upper lumbar spine in relation to the lower lumbar spine. 2. Stable surgical changes. 3. No appreciable acute findings to account for patient's symptoms. Electronically authenticated by: CHARMAINE SANABRIA Date: 01/01/2024 12:34 Dictated By: Charmaine Sanabria M.D. Signed By: 01/01/24 1236 DD/ 1234 TD/TT: Offal Icer Poultry: Procedure Note Radiology, Radiologist, - 01/01/2024 [place] [address] XRay Report Signed Patient: TYESHA THOMSON MMR#: [id number] : 1985Acct:[id number] Age/Sex: 38 / FADM Date: 12/30/23 Loc: [facility] Attending Dr: MONIQUE MESA Ordering Physician: MONIQUE MESA Date of Service: 12/30/23 Procedure(s): XR lumbar spine 6V w bending Accession Number(s): [id number] cc: SINGH MORSE ; MONIQUE MESA [place] [address] Patient Name: TYESHA THOMSON MRN: [id number] date: 1985 Sex: F Assigned Patient Location: [facility] Current Patient Location: Accession/Order Number: [id number] Exam Date: 12/30/2023 13:05 Report Date: 01/01/2024 12:34 At the request of: MONIQUE MESA Procedure: XR lumbar spine 6V w bending EXAMINATION: XR lumbar spine 6V w bending HISTORY: Acute midline low back pain without sciatica M54.50 COMPARISON: CT abdomen pelvis 09/18/2023 FINDINGS: BONES: Marked posterior dislocation of the upper lumbar spine in relationto the lower lumbar spine with fracture fragments and exuberant heterotopicbone formation bridging the junction. Prior mechanical fusion of the left sacroiliac joint. Posterior mechanical fusion of the visible thoracic spine. DISC SPACES: No appreciable significant disc space narrowing. PARASPINOUS: Filter within the IVC. OTHER: Negative. XR/XR lumbar spine 6V w bending IMPRESSION: 1. Grossly stable significant posttraumatic changes of the lumbar spinewith transection of the spine, remote fractured vertebral bodies, andsignificant posterior displacement of the upper lumbar spine in relation to the lower lumbar spine. 2. Stable surgical changes. 3. No appreciable acute findings to account for patient's symptoms. Electronically authenticated by: CHARMAINE SANABRIA Date: 01/01/2024 12:34 Dictated By: Charmaine Sanabria M.D. Signed By:01/01/24 1236 DD/ 1234 TD/TT: Offal Icer Poultry: us Monique Mesa [facility] Final Resu lt documented in this encounter Visit Diagnoses Not on filedocumented in this encounter Additional Health Concerns Assessment Noted Time PHQ-9 Depression Total Score: 14 023 2:58 PM EDT documented as of this encounter Care Teams Lightout Examiner Relationship Specialty Start Date End Date Singh Morse MD [address] [facility] [address] [place] [address] PCP - [facility] 01/15/23 01/15/24 Singh Morse MD [address] [facility] [address] [place] [address] PCP - General Internal Medicine 04/06/23 Pato Lambert DO [address] [place] [address] Dr Leslye Catalan [place], [place] [id number] PCP - [facility] 04/16/24 10/16/24 Monique Mesa NP [address] [facility] [address] [place] [address] PCP - [facility] 10/17/24TuesdayElisa LPN 112 [facility] [address] [place] [address] Licensed Practical Nurse Family Medicine 07/04/24 11/06/24 Diamond Alvarenga, SWEATBAND MAKER [address] [place] [address] Polymerization Oven Tender Family Medicine 10/30/24 documented as of this encounter
--- OUTSIDE RECORDS SUMMARY | 2025-06-27 14:44 | XMS_ITS | Encounter Summary ---
Author Organization [facility] Address [address] [place] [address] Care Team Providers Care Fuel Storage Technician Name Role Phone Dalton Saez MD Unavailable [phone] Nathalia Justice MD Unavailable [phone] Tracy Jacobsen PLATINUM SMITH-CARBURETOR REBUILDER Unavailable [phone] Evelina Durham PLATINUM SMITH-CARBURETOR REBUILDER Unavailable [phone] Encounter Details Date Type Department Care Team (Late st Contact Info) Description 10/16/2020 Abstract PATIENT ACUITY SCORE Social History Tobacco [...] Author No 07/11/2015 6:18 PM EDT Roxana Krueger, PATTI * Visual impairment? Answer Date of Assessment [...] documented as of this encounter Care Teams Fuel Storage Technician Relationship Specialty Start Date End Date Dalton Saez MD [address] [place] [address] Physician Orthopaedic Surgery 07/22/20 Nathalia Justice MD [address] [place], [place] [address] Physician Infectious Diseases 07/22/20 Tracy Jacobsen PLATINUM SMITH-CARBURETOR REBUILDER [address] [place], [place] [address] LSAT INSTRUCTOR Infectious Diseases 03/20/21 Evelina Durham PLATINUM SMITH-CARBURETOR REBUILDER [address] [place] [address] LSAT INSTRUCTOR Infectious Diseases 05/22/21 documented as of this encounter
--- OUTSIDE RECORDS SUMMARY | 2025-06-27 14:44 | XMS_ITS | Clinical Summary ---
Author Organization [employer] [employer] Address [id number] [address] [place] [address] Care Team Providers Care Appraiser Name Role Phone Unavailable Primary Care Provider Unavailabl e Allergies Active Allergy Reactions Criticality Noted Date Comments Cefazolin Itching,Rash Low 07/02/2015 Other Reaction(s): itching Cephalexin Rash,Other (See Comments) Low 09/26/2023 Other Reaction(s): does not know reaction Ciprofloxacin Hallucinations,Abn ormal Behavior,Other (See Comments),Rash High 07/11/2015 Other Reaction(s): Unknown Nausea Nausea Other reaction(s): Hallucinations Other reaction(s): Hallucinations Ondansetron Hcl (Pf) Other (See Comments) 09/21/2016 Headache Sulfamethoxazole-Trime thoprim Diarrhea 03/24/2023 Medications cholecalciferol , vitamin D3, (cholecalcifero l, vit D3,,bulk,) 100,000 unit/gram powder Take by mouth once a week. Active multivitamin with minerals (MY-VITALIFE) capsule Take 1 capsule by mouth in the morning. Active ascorbic acid (VITAMIN C) 500 mg tablet Take 1 tablet (500 mg total) by mouth in the morning. Active cholecalciferol , vitamin D3, 2,000 units capsule TAKE 1 CAPSULE BY MOUTH EVERY DAY FOR 90 DAYS 3 Active docusate sodium (COLACE) 100 mg capsule TAKE 1 TO 2 CAPSULES BY MOUTH NEEDED ONCE DAILY FOR 30 DAYS 4 Active gabapentin (NEURONTIN) 600 mg tablet Take 1.5 tablets (900 mg total) by mouth. Active ondansetron (ZOFRAN) 8 mg tablet Take 1 tablet (8 mg total) by mouth in the morning. Active promethazine (PHENERGAN) 25 mg tablet Take 1 tablet (25 mg total) by mouth every 6 (six) hours as needed. Active heparin lock flush, porcine, 10 unit/mL injection Infuse 1-5 mL (10-50 Units total) into a venous catheter as needed (line care per nursing agency protocol.). 1 mL 4 Active heparin lock flush, porcine, injection 100 unit/mL solution Infuse 1-5 mL (100-500 Units total) into a venous catheter as needed (line care per nursing agency protocol.). 1 mL 4 Active sodium chloride injection Infuse 10-20 mL into a venous catheter as needed for line care (line care per nursing agency protocol.). 1 mL 4 Active docusate sodium (COLACE) 100 mg capsule Take 1 capsule (100 mg total) by mouth 2 (two) times a day as needed for constipation. 10 capsule 4 Active acetaminophen (TYLENOL EXTRA STRENGTH) 500 mg tablet Take 2 tablets (1,000 mg total) by mouth every 8 (eight) hours as needed for pain. 30 tablet 4 Active PNV 119-iron fum-folic acid 29 mg iron- 1 mg tablet Take 1 tablet by mouth in the morning. 60 tablet 3 4 Active nicotine (NICODERM CQ) 14 mg/[address] 1 patch on the skin in the morning. 28 patch 2 4 Active naloxone (NARCAN) 4 mg/actuation spray,non-aeros ol nasal spray Administer 1 spray (4 mg total) into alternating nostrils as needed for opioid reversal. 2 each 1 4 Active Active Problems Problem Noted Date Diagnosed Date Intertriginous dermatitis associated with moistu re 07/06/2024 Dermatitis associated with m oisture from urinary incontinence 07/06/2024 Dermatitis associated with moisture from stool i ncontinence 07/06/2024 Pyelonephritis affecting 07/05/2024 Immunizations No known immunizations Social History Tobacco Use Types Packs/Day Years Used Date Smoking Tobacco: Every Day Cigarettes Tobacco Cessation:Ready to Q uit: Not Asked; Counseling Given: Not Answered Comments No Sex and Gender Information Value Date Recorded Sex Assigned at Not on file Legal Sex Female 6:00 PM EDT Gender Identity Not on file Sexual Orientation Not on file Last Filed Vital Signs Vital Sign Reading Time Taken Comments Blood Pressure 101/75 07/09/2024 8:40 AM EDT Pulse 72 07/09/2024 8:40 AM EDT Temperature 36.8 C (98.2 F) 07/09/2024 8:40 AM EDT Respiratory Rate 18 07/09/2024 8:40 AM EDT Oxygen Saturation 98% 07/08/2024 8:07 PM EDT Inhaled Oxygen Concentration - - Weight 87.8 kg (193 lb 9 oz) 07/05/2024 1:48 AM EDT Height 165.1 cm (5' 5 ) 07/06/2024 6:00 AM EDT Body Mass Index 32.21 07/05/2024 1:48 AM EDT Plan of Treatment Health Maintenance Due Date Last Done Comments Tobacco Counseling 1985 Depression Screening 1998 Tobacco Screening 1998 Adult BMI Follow Up Plan 2004 DTaP,Tdap and Td Vaccines (1 - Tdap) 2005 Pap Smear 12/27/2007 COVID-19 Vaccine ( season) 2025, 02/03/2021 Influenza Vaccine 06/17/2025 Adult BMI Screening 07/05/2025 07/05/2024 Medical Devices Not on file Insurance [employer] Advance Directives * Full Code (Latest Code Status on File) Date Activated Date Inactivated Comments 07/05/2024 1:14 AM 07/09/2024 8:54 PM
--- OUTSIDE RECORDS SUMMARY | 2025-06-27 14:44 | XMS_ITS | Encounter Summary ---
Author Organization [facility] Address [address] [place] [address] Care Team Providers Care Hand Picker Name Role Phone Dalton Saez MD Unavailable [phone] Nathalia Justice MD Unavailable [phone] Tracy Jacobsen DINING SERVICE INSPECTOR-BRINEYARD SUPERVISOR Unavailable [phone] Evelina Durham DINING SERVICE INSPECTOR-BRINEYARD SUPERVISOR Unavailable [phone] Encounter Details Date Type Department Care Team (Late st Contact Info) Description 10/16/2021 Abstract PATIENT ACUITY SCORE Social History Tobacco [...] on filedocumented in this encounter Care Teams Hand Picker Relationship Specialty Start Date End Date Dalton Saez MD [address] [place] [address] Physician Orthopaedic Surgery 07/22/20 Nathalia Justice MD [address] [place] [address] Physician Infectious Diseases 07/22/20 Tracy Jacobsen APRN-ELIZABETH [address] [place], [place] [address] COUNTER HAND Infectious Diseases 03/20/21 Evelina Durham APRN-ELIZABETH [address] [place], [place] [id number] COUNTER HAND Infectious Diseases 05/22/21 documented as of this encounter
--- OUTSIDE RECORDS SUMMARY | 2025-06-27 14:44 | XMS_ITS | Encounter Summary ---
Author Organization [facility] Address [address] [facility], [address] [place] [address] Care Team Providers Care Saddle Mechanic Name Role Phone Alice Rojas DO Primary Care Provider [phone] Encounter Details Date Type Department Care Team (Late st Contact Info) Description 06/09/2016 PAT Telephone [facility] Pre-Admit Testing [address] [place], [place] [id number] Peggy Orantes RN Social History Tobacco Use Types Packs/Day [...] - Inhaled Oxygen Concentration - - Weight 88.5 kg (195 lb) 06/09/2016 10:54 AM EDT APPROX Height 165.1 cm (5' 5 ) 06/09/2016 10:54 AM EDT Body Mass Index 32.45 06/09/2016 10:54 AM EDT documented in this encounter Plan of Treatment Not on file documented as of this encounter Visit Diagnoses Not on filedocumented in this encounter Additional Health Concerns Infection Onset Date Last Indicated Resolved Time ESBL (Extended Spectrum Beta Lactamase) Comment:E.coli- urine 07/202408/13/2024 08/15/2024 documented as of this encounter Care Teams Saddle Mechanic Relationship Specialty Start Date End Date Alice Rojas DO PCP - General 06/09/16 documented as of this encounter
--- NOTE | 2025-06-27 14:46 | MR_ITS ---
The [place] [id number] Patient Name: CHRISTINA PERALTA MRN: [facility]:[id number] date: 1985 Sex: F Assigned Patient Location: MRI Current Patient Location: MRI Accession/Order Number: [id number] Exam Date: 06/27/2025 15:35 Report Date: 06/27/2025 18:21 At the request of: JEF JON APRN Procedure: MR thoracic spine wo/w con MRI of the thoracic spine performed without and with contrast INDICATION: Traumatic injury spinal cord T7-T12 Comparison CT abdomen pelvis 07/04/2024 FINDINGS: Mild straightening normal thoracic kyphosis. Vertebral body heights and marrow signal unremarkable. There are postsurgical changes T8-T12 status post multilevel posterior instrument fusion. There is mild retrolisthesis T9 on T10 measuring 3 mm with focal intervertebral space narrowing at this level.. Evidence of zuxk-ht-rrwinrra multilevel facet arthropathy causing mild neural foraminal narrowing notably T7-T8. Minimal multilevel disc bulges notably T6-T7 with minimal ventral indentation thecal sac. Left paracentral bulge T7-T8. There is diffuse thinning of the thoracic aorta. There is focal cord transection at the T8 level. At T10 there is suspected a focal disc desiccation with central cord syrinx likely posttraumatic. There is a small band of tissue at the T9-T10 possible focal gliosis or dural scarring and thickening possibly related to prior trauma or surgery. Otherwise no loculated collections. No evidence evidence abnormal postcontrast enhancement. 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 Mild degenerative changes notably involving the posterior elements. No high-grade canal or neural foraminal narrowing identified. Impression dictated by: Luciano Gold M.D. 06/27/2025 6:21 PM Dictation Location: [place] [address] Electronically authenticated by: [id number] Y Date: 06/27/2025 18:21
--- NOTE | 2025-06-27 14:46 | MR_ITS ---
The [address] [address] Patient Name: CHRISTINA PERALTA MRN: [facility]:[id number] date: 1985 Sex: F Assigned Patient Location: MRI Current Patient Location: MRI Accession/Order Number: [id number] Exam Date: 06/27/2025 15:25 Report Date: 06/27/2025 23:02 At the request of: JEF JON APRN Procedure: MR lumbar spine wo/w con MRI of the lumbar spine performed without with contrast INDICATION: Traumatic injury on the spinal cord T7-T12 COMPARISON: CT abdomen pelvis 07/04/2024 FINDINGS: Postsurgical changes status post thoracic instrumentation noted. The postsurgical changes involving the pelvis/sacrum noted.. Redemonstration of traumatic injury involving the lumbar spine. Last well-formed well-formed vertebral body at the T12 vertebral body. There is posttraumatic deformity involving the anterior inferior endplate of L1. There is subtle widening of the T12-L1 disc space anteriorly. Abnormal appearance of L2-L3 unclear if this is related to traumatic injury or possible surgical decompression versus neurogenic spondyloarthropathy. There is a defect involving the superior aspect of the L4 vertebral body and posterior elements. L5 vertebral body appears grossly intact. The postsurgical changes status post instrumentation of the left sacrum. There is anterior translation of L1-L2 anteriorly approximately 3.6 cm. There is destruction of the canal as result L2 and L3. At L4 S1, there is diffuse clumping of the nerve roots due to arachnoiditis. Diminished T2 signal along the epidural space posteriorly to blood products related to prior traumatic injury. Following contrast administration no abnormal postcontrast enhancement identified. 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 Impression dictated by: Luciano Gold M.D. 06/27/2025 11:02 PM Dictation Location: [place] [address] Electronically authenticated by: [id number] Y Date: 06/27/2025 23:02
--- OUTSIDE RECORDS SUMMARY | 2025-06-27 16:05 | XMS_ITS | CCD ---
Author Organization [facility] Care Team Providers Care Keg Raiser Name Role Phone PROVIDER, UNKNOWN Attending Unavailable [...] MESA Admitting Unavailable SHARIFA MESA Attending Unavailable MOSHE, SHARIFA Consulting Unavailable Dalton Saez MD Unavailable [phone] Nathalia Justice MD Unavailable Tirbaso EDITORIAL MANAGER-ORGANISATIONAL PSYCHOLOGIST, Tracy Unavailable Gut EDITORIAL MANAGER-ORGANISATIONAL PSYCHOLOGIST, Evelina Unavailable SHARIFA MESA WELL HEAD PUMPER-C Primary Care Physician [phone] Yun Hermosillo Unavailable Unavailable Maria De Jesus Denton I Unavailable Unavailable Sandeep LOPEZ Attending Unavailable Rach Ledbetter Attending Unavailable MENDOZA GIPSON Attending Unavailab SHARIFA Davison WELL HEAD PUMPER-C Referring Unavailable Singh Morse MD Unavailable Singh Morse MD Primary Care Provider Dalton Saez MD Unavailable Tirbaso EDITORIAL MANAGER-ORGANISATIONAL PSYCHOLOGIST, Tracy Unavailable [facility] EDITORIAL MANAGER-ORGANISATIONAL PSYCHOLOGIST, Evelina Unavailable Allsop DO, Alice Sweetie Primary Care Provider Chava ARMSTRONG, Salima Unavailable Unavailable Petra DO, Pato Unavailable Tuesday HAND PLEATERElisa Unavailable DO Singh Schroeder Primary Care Provider [phone] PetraDO Pato canada Attending Provider Allsop DO, Alice Primary Care Provider RON RUIZ Attending Unavailable ALLSOP, ALICE SWEETIE Primary Care Unavailab TRISTAN Fong Attending Unavailable THA AGUILAR Referring Unavailable ALLSOP, ALICE SWEETIE Primary Care Unavailab THA Chandra Referring Unavailable ALLSOP, ALICE SWEETIE Primary Care Unavailab le AHMED, AHMED Admitting Unavailable ALLSOP, ALICE SWEETIE Primary Care Unavailab le EMILE ALVAMED Attending Unavailable AHMED, AHMED Admitting Unavailable AHMED, EMILEMED Attending Unavailable ALLSOP, ALICE SWEETIE Primary Care Unavailab le Singh Schroeder A Primary Care Unavailable Petra, Pato Admitting Unavailable Britany Lamberty Attending Unavailable Amna, Jacklyn A Attending Unavailable Diab, Jacklyn A Admitting Unavailable KHUSHBOOKIRSTIN KELLEYTT A Attending Unavailable DIAB, JACKLYN Referring Unavailable YON DIAZ Unavailable ALLSOP, ALICE Primary Care Unavailable KHUSHBOO, DEMETRIUS A Admitting Unavailable Unavailable Primary Care Provider Unavailabl e Lyle CHANNEL OPENER, Diamond Unavailable [phone] Moshe CARRERA, Sharifa Sorenson Unavailable [phone] Unavailable Primary Care Provider Unavailabl e Lyle CHANNEL OPENER, Diamond Unavailable Sreekanth Dey Admitting Unavailable Sreekanth Dey Attending Unavailable MORSE, SINGH Primary Care Unavailable Sreekanth Dey Admitting Unavailable Sreekanth Dey Attending Unavailable MORSE, SINGH Primary Care Unavailable Sreekanth Dey Admitting Unavailable Sreekanth Dey Attending Unavailable MORSE, SINGH Primary Care Unavailable Sreekanth Dey Attending Unavailable Sreekanth Dey Admitting Unavailable MORSE, SINGH Primary Care Unavailable PETRA, PATO Attending Unavailable SHARIFA MESA Attending Unavailable SHARIFA MESA Attending Unavailable RACHAEL NAIDU Attending Unavailable SHARIFA MESA Referring Unavailable SHARIFA MESA Attending Unavailable PATO LAMBERT Attending Unavailable SHARIFA MESA Attending Unavailable Allergies Allergy Classification Reported Allergen(s) Allergy Type Date of Onset Reaction(s) Facility (20 sources) ceFAZolin; Translations: [CEFAZOLIN] Drug Allergy 07-02-20 15 Itching, Rash [facility] Repository (20 sources) Ciprofloxacin; Translations: [CIPROFLOXACIN] Drug Allergy 07-11-20 15 Hallucinations , Eruption of skin (disorder), Unknown, Rash, Mental Status Change, Abnormal Behavior, Other (See Comments) [facility] Repository (10 sources) Ondansetron; Translations: [ONDANSETRON] Drug Allergy 04-06-20 16 Headache, Other, Unknown [facility] Repository (2 sources) Ciprofloxacin; Translations: [Cipro] Drug Allergy 12-27-19 17 [facility] Repository (2 sources) Ondansetron; Translations: [Zofran] Drug Allergy 12-27-19 17 [facility] Repository (20 sources) Cephalexin; Translations: [cephalexin] Drug Allergy 09-26-20 23 Rash, Unknown, Other (See Comments) [facility] (20 sources) Sulfamethoxazole / Trimethoprim Drug Allergy 03-24-20 23 Diarrhea [facility] (14 sources) Ondansetron; Translations: [ONDANSETRON HCL (PF)] Drug Allergy 09-21-20 16 Other: See Comments, [facility] (See Comments) [facility] cat dander; Translations: [cat dander] Allergy to substance 09-23-20 21 [facility] (1 source) Ondansetron Drug Allergy 04-06-20 16 Other (See Comments) [facility] Medications Current Medications Medication Drug Class(es) Dates Sig (Normalized) Sig (Original) acetaminophen 500 mg oral tablet (5 sources) Start: 08-13-2024 End: 08-13-2024 1,000 mg, Oral, EVERY 6 HOURS SCHEDULED (4 times per day), First dose (after last modification) on Tue08/13/24 at 1200, Until Discontinued, Maximum dose of acetaminophen is 4000mg from all sources in 24 hours. Alternate ibuprofen and acetaminophen every 4 hours., Start: 01-29-2021 take 2 tablets by mo uth every six hours as needed acetaminophen (TYLENOL) 325 mg tablet Take 2 Tablets by mouth every 6 hours as needed. 30 Tablet 01/29/2021 Active acetaminophen 325 mg / oxyCODONE hydrochloride 5 mg oral tablet (18 sources) Opioid Agonist Start: 09-17-2024 End: 10-19-2024 take 2 tablets by mouth every six hours for pain oxyCODONE-acetaminophen (Percocet) 5-325 MG tablet Indications: Other chronic pain Take 2 tablets by mouth every 6 (six) hours if needed for severe pain for up to 15 days 120 tablet 10/04/2024 10/19/2024 Active Start: 08-12-2024 End: 08-13-2024 2 tablet, Oral, EVERY 4 HOUR S PRN, Starting on 08/12/24 at 2124, Until 08/13/24 at 1027, Pain Severe (7-10), Maximum dose of acetaminophen is 4000 mg from all sources in 24 hours. Start: 07-20-2024 End: 09-04-2024 take 2 tablets by mouth every six hours for pain oxyCODONE-acetaminophen (Percocet) 5-325 MG tablet Indications: Other chronic pain Take 2 tablets by mouth every 6 (six) hours if needed for severe pain for up to 15 days 120 tablet 08/20/2024 09/04/2024 Active Start: 05-17-2024 End: 07-15-2024 take 2 tablets by mouth every six hours as needed oxyCODONE-acetaminophen (PERCOCET) 5-325 mg per tablet Take 2 tablets by mouth every 6 (six) hours as needed. Max Daily Amount: 8 tablets 06/15/2024 07/15/2024 Active ALPRAZolam 0.5 mg oral tablet (20 sources) Benzodiazepine Start: 10-18-2024 End: 07-18-2025 take 1 tablet by mouth in the morning, then take 1 tablet by mouth in the evening, then take 1 tablet by mouth at bedtime ALPRAZolam (Xanax) 0.5 MG tablet Indications: Panic attacks Take 1 tablet (0.5 mg) by mouth in the morning and 1 tablet (0.5 mg) in the evening and 1 tablet (0.5 mg) before bedtime. 90 tablet 06/18/2025 07/18/2025 Active amoxicillin 500 mg oral capsule (2 sources) Penicillin-class Antibacterial Start: 08-06-2024 take 2 capsules by mouth three times daily amoxicillin (AMOXIL) 500 mg capsule Take 2 capsules by mouth three times a day. 42 capsule 08/06/2024 Active ascorbic acid 500 mg oral tablet (13 sources) Vitamin C take 1 tablet by mouth once daily ascorbic acid, vitamin C, (VITAMIN C) 500 mg tablet Take 500 mg by mouth once daily. Active baclofen 20 mg oral tablet (20 sources) gamma-Aminobutyric Acid-ergic Agonist Start: 12-31-2024 take 1 tablet by mouth four times daily at mealtime baclofen (Lioresal) 20 MG tablet Indications: Spinal cord injury at T8 level, subsequent encounter ([facility]) TAKE 1 TABLET BY MOUTH 4 TIMES DAILY, ADMINISTER WITHOUT REGARDS TO MEALS 120 tablet 11 12/31/2024 Active Start: 08-12-2024 take 20 mg by mouth four times daily 20 mg, Oral, 4 TIMES DAILY, First dose on 08/12/24 at 2145, Until Discontinued Start: 03-04-2016 End: 07-09-2024 take 1 tablet by mouth four times daily at mealtime baclofen (Lioresal) 20 MG tablet Indications: Spinal cord injury at T8 level, subsequent encounter (CMS/HCC) TAKE 1 TABLET BY MOUTH 4 TIMES DAILY, ADMINISTER WITHOUT REGARDS TO MEALS 120 tablet 11 01/12/2024 Active take 1 tablet by lynn every six hours baclofen (Lioresal) 20 MG tablet Take 20 mg by mouth every 6 (six) hours. 0 Active benzocaine 0.2 mg/mg oral gel (15 sources) Standardized Chemical Allergen Start: 08-07-2015 benzocaine 20 % gel 1 Drop. 08/07/2015 Active Start: 08-07-2015 benzocaine (HU RRICAINE) oral gel 1 Drop in the mouth as needed for Pain (for tooth pain). 1 Tube 2 08/07/2015 Active benzocaine 200 mg/ml / menthol 5 mg/ml topical spray (1 source) Standardized Chemical Allergen Start: 08-12-2024 Topical, PRN, Pain, Starting on 08/12/24 at 2122, Apply to perineal area. Patient is capable and may self administer at bedside., cholecalciferol 0.05 mg oral capsule (20 sources) Vitamin D Start: 10-29-2024 take 1 capsule by mouth once daily cholecalciferol (Vitamin D-3) 50 MCG (1999 UT) capsule Indications: Vitamin D deficiency TAKE 1 CAPSULE BY MOUTH EVERY DAY 30 capsule 11 10/29/2024 Active Start: 09-14-2023 take 1 capsule by mo uth once daily cholecalciferol (Vitamin D-3) 50 MCG (1999 UT) capsule Indications: Vitamin D deficiency TAKE 1 CAPSULE BY MOUTH EVERY DAY FOR 90 DAYS 30 capsule 11 09/14/2023 Active Cholecalciferol (VITAMIN D PO) Take by mouth once a week Active cholecalciferol, vitamin D3, (cholecalciferol, vit D3,,bulk,) 100,000 unit/gram powder (1 source) cholecalciferol, vitamin D3, (cholecalciferol, vit D3,,bulk,) 100,000 unit/gram powder Take by mouth once a week. Active cholecalciferol, vitamin D3, (CHOLECALCIFEROL, VITD3,, BULK,) 100,000 unit/gram powd (12 sources) cholecalciferol, vitamin D3, (CHOLECALCIFEROL, VITD3,, BULK,) 100,000 unit/gram powd Take by mouth. Suspended cholecalciferol, vitamin D3, (CHOLECALCIFEROL, VITD3,, BULK,) 100,000 unit/gram powd Take by mouth. Active Cranberry-Vit C-Lactobacillus (RA Cranberry Supplements) 450-30 MG tablet (20 sources) Start: 09-17-2024 take 1 tablet by mouth once daily Cranberry-Vit C-Lactobacillus (RA Cranberry Supplements) 450-30 MG tablet Indications: Recurrent UTI Take 1 tablet by mouth Daily 100 tablet 3 09/17/2024 Active Start: 03-01-2024 take 1 tablet by lynn th once daily Cranberry-Vit C-Lactobacillus (RA Cranberry Supplements) [...] Ordered dicyclomine hydrochloride 10 mg oral capsule (3 sources) Anticholinergic Start: 01-29-2021 take 1 capsule by mouth four times daily dicyclomine (BENTYL) 10 MG capsule Take 1 Capsule by mouth 4 times daily. 120 Capsule 3 01/29/2021 Active docusate sodium 100 mg oral capsule (20 sources) Start: 11-29-2024 take 1-2 capsules by mouth once daily as needed docusate sodium (Colace) 100 MG capsule Indications: Constipation, unspecified constipation type TAKE 1 TO 2 CAPSULES BY MOUTH NEEDED ONCE DAILY FOR 30 DAYS 60 capsule 11 11/29/2024 Active Start: 11-16-2023 take 1-2 capsules by mouth once daily as needed docusate sodium (Colace) 100 MG capsule Indications: Constipation, unspecified constipation type TAKE 1 TO 2 CAPSULES BY MOUTH NEEDED ONCE DAILY FOR 30 DAYS 60 capsule 11 11/16/2023 Active Start: 12-20-2016 take 1 capsule by [facility] twice daily docusate sodium (COLACE) 100 mg capsule Take 1 capsule by mouth twice daily. 30 capsule 12/20/2016 Active docusate sodium 50 mg / sennosides, residential 8.6 mg oral tablet (3 sources) Start: 08-14-2024 take 1 tablet by mouth once daily sennosides-docusate sodium (SENOKOT-S) 8.6-50 MG tablet Take 1 tablet by mouth daily 30 tablet 08/14/2024 Active Start: 08-12-2024 End: 08-13-2024 take 1 tablet by mouth twice daily 1 tablet, Oral, 2 TIMES DAILY, First dose on 08/12/24 at 2145, Until Discontinued, esomeprazole 40 mg delayed release oral capsule (3 sources) Proton Pump Inhibitor Start: 01-30-2021 take 1 capsule by mouth once daily 30 minutes before breakfast esomeprazole (NEXIUM) 40 MG capsule Take 1 Capsule by mouth daily (30 minutes before breakfast). 30 Capsule 3 01/30/2021 Active fluticasone propionate 0.05 mg/actuat metered dose nasal spray (20 sources) Corticosteroid Start: 09-17-2024 End: 04-01-2026 take 2 spray(s) nasal route once daily fluticasone (Flonase) 50 MCG/ACT nasal spray Indications: URI, acute ADMINISTER 2 SPRAYS INTO EACH NOSTRIL DAILY SHAKE GENTLY. BEFORE FIRST USE, PRIME PUMP. AFTER USE, CLEAN TIP AND REPLACE CAP. 16 mL 1 04/01/2025 04/01/2026 Active Start: 08-03-2023 End: 08-02-2024 take 2 spray(s) nasal route in the morning fluticasone (Flonase) 50 MCG/ACT nasal spray Indications: URI, acute Administer 2 sprays into each nostril in the morning. Shake gently. Before first use, prime pump. After use, clean tip and replace cap.. 16 g 1 08/03/2023 Active Start: 08-03-2023 End: 08-02-2024 fluticasone propionate (FLON ASE) 50 mcg/actuation nasal spray 2 sprays in the morning. 08/03/2023 08/02/2024 Active gabapentin 300 mg oral capsule (20 sources) Anti-epileptic Agent Start: 02-08-2025 take 3 capsules by mouth four times daily gabapentin (Neurontin) 300 MG capsule Indications: Acute radial nerve palsy of right upper extremity TAKE 3 CAPSULES BY MOUTH 4 TIMES DAILY 360 capsule 11 02/08/2025 Active Start: 08-13-2024 take 900 mg by mouth four times daily 900 mg, Oral, 4 times daily, First dose (after last modification) on Tue08/13/24 at 1315, Until Discontinued Start: 08-13-2024 End: 08-13-2024 take 900 mg by mouth three times daily 900 mg, Oral, 3 TIMES DAILY, First dose (after last modification) on 08/13/24 at 0900, Until Discontinued Start: 08-12-2024 End: 08-13-2024 take 800 mg by mouth three times daily 800 mg, Oral, 3 TIMES DAILY, First dose on 08/12/24 at 2145, Until Discontinued Start: 08-06-2024 End: 08-17-2024 gabapentin (NEURONTIN) 600 m g tablet Take one and a half tablets by mouth four times daily for 42 doses. 63 tablet 08/06/2024 08/17/2024 Active Start: 02-13-2024 End: 09-13-2024 take 3 capsules by mouth four times daily gabapentin (Neurontin) 300 MG capsule Indications: Acute radial nerve palsy of right upper extremity TAKE 3 CAPSULES BY MOUTH 4 TIMES DAILY 360 capsule 11 02/13/2024 Active Start: 12-14-2019 take 1 capsule by mo uth four times daily gabapentin (NEURONTIN) 300 MG capsule Take 1 Capsule by mouth 4 times daily. 90 Capsule 3 01/29/2021 Active gabapentin (NEUR ONTIN) 600 MG tablet Take 800 mg by mouth 3 times daily Active gabapentin (NEUR ONTIN) 600 mg tablet Take 900 mg by mouth three times daily. Active gabapentin (NEUR ONTIN) 600 mg tablet Take 1.5 tablets (900 mg total) by mouth. Active take 3 capsules by m outh four times daily in the morning gabapentin (Neurontin) 300 MG capsule Take 900 mg by mouth in the morning and 900 mg at noon and 900 mg in the evening and 900 mg before bedtime. Take 3 capsules by mouth 4 times a day.. 0 Active honey ([facility]) GEL gel (3 sources) Start: 01-29-2021 honey ([employer]) GEL gel Apply topically daily. 01/29/2021 Active Start: 01-29-2021 honey ([employer]) GEL gel Apply topically daily. 0 01/29/2021 Active ibuprofen 600 mg oral tablet (5 sources) Nonsteroidal Anti-inflammatory Drug Start: 08-12-2024 take 1 tablet by mouth every six hours as needed for pain ibuprofen (ADVIL;MOTRIN) 600 MG tablet Take 1 tablet by mouth every 6 hours as needed for Pain 30 tablet 1 08/14/2024 Active Start: 01-29-2021 take 1 tablet by lynn every six hours as needed ibuprofen (MOTRIN) 400 MG tablet Take 1 Tablet by mouth every 6 hours as needed. 30 Tablet 3 01/29/2021 Active melatonin 3 mg oral tablet (16 sources) Start: 08-06-2024 take 1 tablet by mouth once daily at bedtime melatonin 3 mg tablet Take 1 tablet by mouth daily at bedtime. 42 tablet 08/06/2024 Active melatonin 1 mg t ablet Take 3 mg by mouth. Active metroNIDAZOLE 500 mg oral tablet (1 source) Nitroimidazole Antimicrobial Start: 07-05-2024 End: 07-12-2024 take 1 tablet by mouth every twelve hours metroNIDAZOLE (FLAGYL) 500 mg tablet Take 1 tablet (500 mg total) by mouth every 12 (twelve) hours for 7 days. 14 tablet 07/05/2024 07/12/2024 Active miconazole nitrate 0.02 mg/mg topical powder (1 source) Azole Antifungal Start: 08-14-2024 apply 1 dose topically twice daily Topical, 2 TIMES DAILY, First dose on Tue08/14/24 at 0115, Apply to affected area. Substituted for Nystatin (NYSTOP) powder. Multivitamin capsule (12 sources) take 1 capsule by mouth once daily Multivitamin capsule Take 1 capsule by mouth once daily. Suspended take 1 capsule by mouth once scar ly Multivitamin capsule Take 1 capsule by mouth once daily. Active multivitamin with minerals (MY-VITALIFE) capsule (1 source) take 1 capsule by mouth in the morning multivitamin with minerals (MY-VITALIFE) capsule Take 1 capsule by mouth in the morning. Active nystatin [id number] unt/ml topical cream (20 sources) Polyene Antifungal Start: 12-11-19 nystatin (Mycostatin) cream APPLY TO AFFECTED AREA TWICE A DAY FOR 14 DAYS AND NEEDED 12/11/2023 Active omeprazole 20 mg oral tablet (18 sources) Proton Pump Inhibitor Start: 06-29-20 take 20 mg by mouth once daily as needed Prilosec 20 mg, Oral, Daily, PRN Control of stomach acid, Refills(s) 0, Control of stomach acid Start Date: 06/29/16 Status: Ordered take 2 capsules by m out once daily as needed omeprazole (PRILOSEC) 20 MG capsule Take 40 mg by mouth daily as needed Active ondansetron 4 mg disintegrating oral tablet (20 sources) Serotonin-3 Receptor Antagonist Start: 12-27-2024 End: 12-27-2025 take 1 tablet by mouth every eight hours as needed for nausea and vomiting ondansetron ODT (Zofran-ODT) 4 MG disintegrating tablet Indications: Nausea and vomiting, unspecified vomiting type TAKE 1 TABLET (4 MG) BY MOUTH EVERY 8 HOURS NEEDED FOR NAUSEA AND VOMITING 30 tablet 05/02/2025 Active Start: 11-29-2024 take 1 tablet by lynn once daily ondansetron (Zofran) 8 MG tablet Indications: Nausea TAKE 1 TABLET BY MOUTH EVERY DAY 20 tablet 11/29/2024 Active Start: 10-29-2024 take 1 tablet by lynn th once daily ondansetron (Zofran) 8 MG tablet Indications: Nausea TAKE 1 TABLET BY MOUTH EVERY DAY 20 tablet 10/29/2024 Active Start: 10-18-2024 End: 10-18-2024 take 1 tablet by mouth once daily ondansetron (Zofran) 8 MG tablet Indications: Nausea Take 1 tablet (8 mg) by mouth Daily 20 tablet 10/18/2024 Active take 1 tablet by lynn th in the morning ondansetron (ZOFRAN) 8 mg tablet Take 1 tablet (8 mg total) by mouth in the morning. Active 24 hr oxybutynin chloride 5 mg extended release oral tablet (20 sources) Cholinergic Muscarinic Antagonist Start: 08-14-2024 take 1 tablet by mouth at bedtime oxyBUTYnin (DITROPAN XL) 5 MG extended release tablet Take 1 tablet by mouth in the morning, at noon, in the evening, and at bedtime 30 tablet 1 08/14/2024 Active Start: 08-12-2024 take 5 mg by mouth f our times daily 5 mg, Oral, 4 TIMES DAILY, First dose on 08/12/24 at 2145, Until Discontinued Start: 05-07-2019 take 1 tablet by lynn th once daily oxybutynin ER (DITROPAN XL) 10 mg 24 hr tablet Take 1 tablet by mouth once daily. 30 tablet 11 05/07/2019 Active Start: 08-26-2017 take 1 tablet by lynn th three times daily oxybutynin (DITROPAN) 5 MG tablet Take 1 Tablet by mouth 3 times daily. 90 Tablet 3 01/29/2021 Active pantoprazole 40 mg delayed r elease oral tablet (11 sources) Proton Pump Inhibitor Start: 08-13-2024 pantoprazole sod ium (PANTOPRAZOLE ORAL) Take by mouth. Suspended pantoprazole sod ium (PANTOPRAZOLE ORAL) Take by mouth. Active [id number] ( 19) 29 mg iron- 1 mg (2 sources) Start: 08-06-2024 take 1 tablet by mouth once daily [id number] ( 19) 29 mg iron- 1 mg Take 1 tablet by mouth once daily. 30 tablet 2 08/06/2024 Active promethazine hydrochloride 25 mg rectal suppository (17 sources) Phenothiazine Start: 06-18-2016 promethazine (PHENERGAN) 25 MG suppository 1 tablet as needed 06/18/2016 Active Start: 03-04-2016 take 1 tablet by lynn th every six hours as needed for nausea Phenergan 25 mg Tab 25 mg = 1 tab(s), Oral, q6hr, PRN as needed for nausea/vomiting, Refills(s) 0 Start Date: 03/04/16 Status: Ordered rOPINIRole 3 mg oral tablet (20 sources) Nonergot Dopamine Agonist Start: 05-20-2025 take 1 tablet by mouth at bedtime rOPINIRole (Requip) 3 MG tablet Indications: Restless Leg Syndrome Take 1 tablet (3 mg) by mouth at bedtime 90 tablet 3 05/20/2025 Active Start: 01-21-2025 take 1 tablet by lynn th 3 hour(s) before bedtime rOPINIRole (Requip) 0.25 MG tablet Indications: Muscle spasticity TAKE 1 TABLET BY MOUTH 3 HOURS BEFORE BEDTIME 30 tablet 11 01/21/2025 Active Start: 08-14-2024 take 1 tablet by lynn th at bedtime rOPINIRole (Requip) 3 MG tablet Take 3 mg by mouth at bedtime 08/14/2024 Active Start: 08-14-2024 take 1.5 tablets by mouth once daily rOPINIRole (REQUIP) 2 MG tablet Take 1.5 tablets by mouth nightly 90 tablet 3 08/14/2024 Active Start: 08-12-2024 take 3 mg by mouth once daily 3 mg, Oral, NIGHTLY, First dose on 08/12/24 at 2145, Until Discontinued Start: 08-06-2024 take 3 tablets by mo uth once daily rOPINIRole (REQUIP) 1 mg tablet Take 3 tablets by mouth once daily. 63 tablet 08/06/2024 Active Start: 01-16-2024 End: 12-27-2024 take 1 tablet by mouth 3 hour(s) before bedtime rOPINIRole (Requip) 0.25 MG tablet Indications: Muscle spasticity TAKE 1 TABLET BY MOUTH 3 HOURS BEFORE BEDTIME 30 tablet 11 01/16/2024 12/27/2024 Discontinued (Dose adjustment) Start: 01-29-2021 take 1 tablet by lynn [...] Refills(s) 0 Start Date: 03/20/20 Status: Ordered End: 07-09-2024 rOPINIRole (REQUIP) 1 mg tab let Take 3 tablets (3 mg total) by mouth. 07/09/2024 Discontinued (Stop Taking at Discharge) take 1 tablet by lynn th at bedtime rOPINIRole (Requip) 0.25 MG tablet Take 0.25 mg by mouth at bedtime. 0 Active sertraline 25 mg oral tablet (12 sources) Serotonin Reuptake Inhibitor take 3 tablets by mouth once daily sertraline (ZOLOFT) 25 mg tablet Take 75 mg by mouth once daily. Active 1000 ml sodium chloride 9 mg/ml injection (3 sources) Start: 08-12-20 take 20 mL intravenously every hour IntraVENous, at 5-250 mL/hr, PRN, if patient receiving piggyback infusions and maintenance fluids are not ordered OR KVO fluids to protect IV site / prevent frequent line interruptions/ long duration, Starting on 08/12/24 at 2122, For piggyback infusion, administer at same rate as piggyback for a total of 25 mL. Enter 25 mL into dose field and piggyback rate into rate field of order. If piggyback is infusing at a rate less than 100 mL/hr, enter 25 mL into dose field and 100 mL/hr into rate field of order. For KVO fluids, enter rate of 20 mL/hr or less into rate field of order., Start: 08-12-2024 5-40 mL, Intra VENous, EVERY 12 HOURS SCHEDULED (2 times per day), First dose on 08/12/24 at 2145, Until Discontinued, For Line Patency: Peripheral IV = 5 mL; Midline or Central Line = 10 mL/lumen. If following IV push medication, administer flush at same rate as the IV push. Flush volume is determined by type of infusion therapy being given. For non-viscous solutions use: Peripheral IV = 5 mL Midline or Central Line = 10 mL/lumen For viscous solutions (i.e. blood components, parenteral nutrition, contrast media, or after obtaining blood sample) use: Peripheral IV = 10 mL Midline or Central Line = 20 mL/lumen, Start: 08-12-2024 5-40 mL, Intra VENous, PRN, Starting on 08/12/24 at 2122, Until Discontinued, Line Care, After every IV line use, For Line Patency: Peripheral IV = 5 mL; Midline or Central Line = 10 mL/lumen. If following IV push medication, administer flush at same rate as the IV push. Flush volume is determined by type of infusion therapy being given. For non-viscous solutions use: Peripheral IV = 5 mL Midline or Central Line = 10 mL/lumen For viscous solutions (i.e. blood components, parenteral nutrition, contrast media, or after obtaining blood sample) use: Peripheral IV = 10 mL Midline or Central Line = 20 mL/lumen, solifenacin succinate 10 mg oral tablet (20 sources) Cholinergic Muscarinic Antagonist Start: 10-29-2024 solifenacin (VESIc are) 10 MG tablet Indications: Acne vulgaris TAKE 1 TABLET DAILY 30 tablet 4 10/29/2024 Active Start: 07-20-2023 End: 07-09-2024 take 1 tablet by mouth in the morning solifenacin (VESICARE) 10 mg tablet Take 1 tablet (10 mg total) by mouth in the morning. 06/07/2024 07/09/2024 Discontinued (Stop Taking at Discharge) sulfamethoxazole 800 mg / trimethoprim 160 mg oral tablet (13 sources) Dihydrofolate Reductase Inhibitor Antibacterial, Sulfonamide Antimicrobial Start: 08-16-2016 take 1 tablet by mouth twice daily sulfamethoxazole-trimethoprim (BACTRIM DS) 800-160 mg per tablet Take 1 tablet by mouth twice daily. 14 tablet 01/24/2017 Active therapeutic (THERA-DERM) hand/body lotion (1 source) Start: 08-12-2024 Topical, PRN, Dry Skin, nipp le discomfort, Starting on 08/12/24 at 2122, tiZANidine 2 mg oral tablet (1 source) [...] Active traZODone hydrochloride 50 mg oral tablet (20 sources) Serotonin Reuptake Inhibitor Start: 03-21-2025 take 1 tablet by mouth at bedtime traZODone (Desyrel) 50 MG tablet Indications: Depressive disorder due to another medical condition with depressive features TAKE 1 TABLET BY MOUTH AT BEDTIME 90 tablet 3 03/21/2025 Active Start: 08-12-2024 End: 08-14-2024 take 75 mg by mouth once daily 75 mg, Oral, NIGHTLY, F irst dose on 08/12/24 at 2145, Until Discontinued Start: 10-27-2015 End: 03-06-2025 traZODone (DESYREL) 50 mg ta blet Take 1 tablet (50 mg total) by mouth. 03/06/2024 07/09/2024 Discontinued (Stop Taking at Discharge) traZODone (DESYR EL) 50 MG tablet Take 75 mg by mouth nightly Active tretinoin 0.25 mg/ml topical cream (20 sources) Retinoid Start: 02-13-2024 tretinoin (Ret in-A) 0.025 % cream Indications: [...] g 3 08/07/2015 Active 24 hr venlafaxine 75 mg extended release oral capsule (20 sources) Serotonin and Norepinephrine Reuptake Inhibitor Start: 05-02-2025 End: 05-02-2026 take 1 capsule by mouth once daily venlafaxine XR (Effexor XR) 75 MG 24 hr capsule Indications: Depressive disorder due to another medical condition with depressive features Take 1 capsule (75 mg) by mouth Daily Do not crush or chew. 30 capsule 11 05/02/2025 05/02/2026 Active Start: 12-12-2024 End: 12-12-2025 take 1 capsule by mouth once daily venlafaxine XR (Effexor XR) 37.5 MG 24 hr capsule Indications: Post depression Take 1 capsule (37.5 mg) by mouth Daily Do not crush or chew. 30 capsule 11 12/12/2024 05/02/2025 Discontinued take 1 capsule by mo ut once daily venlafaxine (Effexor XR) 150 MG ER capsule Take 150 mg by mouth daily. Active [facility] [place] 500 mg/ml medicated pad (1 source) Start: 08-12-2024 Topical, PRN, Hemorrhoids, For perineal pain or discomfort, Starting on 08/12/24 at 2122, Apply to perineal area. Patient is capable and may self administer at bedside., Zinc Sulfate (12 sources) zinc sulfate (ZI NC-220 ORAL) Take by mouth. Suspended zinc sulfate (ZI NC-220 ORAL) Take by mouth. Active Completed/Discontinued Medications Medication Drug Class(es) Dates Sig (Normalized) Sig (Original) [id number] 200 actuat albuterol 0.09 mg/actuat metered dose inhaler (20 sources) beta2-Adrenergic Agonist Start: 08-03-2023 End: 12-12-2024 take 2 puff(s) by inhalation every four hours for wheezing albuterol HFA (ProAir HFA) 90 mcg/act inhaler Indications: Mild intermittent asthma, unspecified whether complicated (CMS/HCC) Inhale 2 puffs every 4 (four) hours if needed for wheezing or shortness of breath. 8.5 g 1 08/03/2023 12/12/2024 Discontinued (Other) Start: 08-03-2023 End: 08-02-2024 take 2 puff(s) by inhalation every four hours as needed albuterol (PROVENTIL HFA;VENTOLIN HFA) 90 mcg/actuation inhaler Inhale 2 puffs every 4 (four) hours as needed. 08/03/2023 08/02/2024 Active Start: 11-22-2016 albuterol (PRO VENTIL) 2.5 mg /3 mL (0.083 %) nebulizer solution 3 ml as needed 11/22/2016 Active bisacodyl 10 mg rectal suppository (1 source) Stimulant Laxative Start: 08-12-2024 take 10 mg rectal route once daily as needed 10 mg, Rectal, DAILY PRN, Starting on 08/12/24 at 2122, Until Discontinued, Constipation, brexpiprazole 1 mg oral tablet (20 sources) Atypical Antipsychotic Start: 06-11-2024 End: 12-12-2024 take 1 tablet by mouth once daily Brexpiprazole (Rexulti) 1 MG tablet Indications: Mild anxiety TAKE 1 TABLET BY MOUTH EVERY DAY 14 tablet 07/10/2024 12/12/2024 Discontinued (Other) DULoxetine 30 mg delayed release oral capsule (20 sources) Serotonin and Norepinephrine Reuptake Inhibitor Start: 08-13-2024 take 1 capsule by mouth once daily 60 mg, Oral, DAILY, First dose on Tue08/13/24 at 0900, Until Discontinued, Do not crush or break. May add contents of capsule to apple juice or apple sauce, but not chocolate. Start: 01-12-2024 End: 07-27-2024 take 2 capsules by mouth once daily DULoxetine (Cymbalta) [address] capsule Indications: Mild anxiety Take 2 capsules (120 mg) by mouth Daily 60 capsule 52 07/27/2024 Active Start: 06-21-20[address] [facility] once daily DULoxetine (Cymbalta) [address] capsule Indications: Mild anxiety TAKE 2 CAPSULES BY MOUTH EVERY DAY 60 capsule 5 06/21/2023 Active Start: 01-30-2021 take 1 capsule by mo ut once daily DULoxetine (CYMBALTA) 60 MG extended release capsule Take 1 capsule by mouth daily 30 capsule 1 08/14/2024 Active take 1 capsule by mo ut once daily DULoxetine (CYMBALTA) 30 mg capsule Take 30 mg by mouth once daily. Active 0.4 ml enoxaparin sodium 100 mg/ml prefilled syringe (1 source) Low Molecular Weight Heparin Start: 08-13-2024 inject 40 mg by subcutaneous injection once daily 40 mg, SubCUTAneous, DAILY, First dose on 08/13/24 at 0900, Until Discontinued, Indication of Use: Prophylaxis-DVT/PE, Administer by deep subCUTAneous injection with pt lying down. Alternate injection sites on abdominal wall. Do not rub site after injection. Check with provider prior to any invasive procedure., magnesium hydroxide 80 mg/ml oral suspension (1 source) Start: 08-12-2024 take 30 mL by mouth once daily as needed 30 mL, Oral, DAILY PRN, Starting on 08/12/24 at 2122, Until Discontinued, Constipation, 24 hr mirabegron 25 mg extended release oral tablet (15 sources) beta3-Adrenerg ic Agonist Start: 12-12-2023 End: 10-18-2024 Myrbetriq 25 MG 24 hr tablet Indications: Neuromuscular dysfunction of bladder TAKE 1 TABLET DAILY 30 tablet 4 12/12/2023 10/18/2024 Discontinued (Other) Start: 12-12-2023 End: 07-09-2024 take 1 tablet by mouth every twenty-four hours in the morning mirabegron (MYRBETRIQ) 25 mg tablet extended release 24 hr Take 1 tablet (25 mg total) by mouth in the morning. 12/12/2023 07/09/2024 Discontinued (Stop Taking at Discharge) Start: 07-20-2023 mirabegron ER (Myrbetriq) 25 MG 24 hr tablet Indications: Neuromuscular dysfunction of bladder TAKE 1 TABLET EVERY DAY 30 tablet 4 07/20/2023 Active naloxone hydrochloride 40 mg/ml nasal spray (17 sources) Opioid Antagonist Start: 04-03-2020 End: 12-12-2024 take 4 mg nasal route every twenty-four hours as needed naloxone (Narcan) 4 mg/0.1 mL nasal spray Administer 4 mg into affected nostril(s) Daily as needed 07/09/2024 12/12/2024 Discontinued (Other) 24 hr nicotine 0.583 mg/hr transdermal system (14 sources) Cholinergic Nicotinic Agonist Start: 07-10-2024 End: 12-12-2024 nicotine (Nicoderm, Step 2) 14 MG/24HR patch Place 1 patch on the skin in the morning. 07/10/2024 12/12/2024 Discontinued (Other) nitrofurantoin, macrocrystals 25 mg / nitrofurantoin, monohydrate 75 mg oral capsule (8 sources) Nitrofuran Antibacterial Start: 04-25-2025 End: 05-05-2025 take 1 capsule by mouth in the morning nitrofurantoin, macrocrystal-mono hydrate, (Macrobid) 100 MG capsule Indications: Urinary tract infection associated with indwelling urethral catheter, sequela Take 1 capsule (100 mg) by mouth in the morning and 1 capsule (100 mg) before bedtime. Do all this for 10 days. 20 capsule 04/25/2025 05/05/2025 Start: 04-04-2025 End: 04-11-2025 take 1 capsule by mouth in the morning nitrofurantoin, macrocrystal-monohydrate , (Macrobid) 100 MG capsule Indications: Dysuria Take 1 capsule (100 mg) by mouth in the morning and 1 capsule (100 mg) before bedtime. Do all this for 7 days. 14 capsule 04/04/2025 04/11/2025 Active Start: 07-04-2024 End: 07-11-2024 take 1 capsule by mouth in the morning, then take 1 capsule by mouth at bedtime nitrofurantoin, macrocrystal-monohydrate , (MACROBID) 100 mg capsule Take 1 capsule (100 mg total) by mouth in the morning and 1 capsule (100 mg total) before bedtime. 07/04/2024 07/09/2024 Discontinued (Stop Taking at Discharge) oxyCODONE hydrochloride 5 mg oral tablet (20 sources) Opioid Agonist Start: 05-20-2025 End: 07-19-2025 take 2 tablets by mouth every six hours for pain oxyCODONE (Roxicodone) 5 MG immediate release tablet Indications: Other chronic pain Take 2 tablets (10 mg) by mouth every 6 (six) hours if needed for severe pain 240 tablet 06/18/2025 06/19/2025 Discontinued (Reorder) Start: 11-01-2024 End: 05-18-2025 take 2 tablets by mouth every six hours for pain oxyCODONE (Roxicodone) 5 MG immediate release tablet Indications: Other chronic pain Take 2 tablets (10 mg) by mouth every 6 (six) hours if needed for severe pain 240 tablet 04/18/2025 05/18/2025 Active Start: 10-18-2024 End: 12-01-2024 take 1 tablet by mouth every six hours for pain oxyCODONE (Roxicodone) 5 MG immediate release tablet Indications: Other chronic pain Take 1 tablet (5 mg) by mouth every 6 (six) hours if needed for severe pain 120 tablet 11/01/2024 11/01/2024 Discontinued Start: 08-14-2024 End: 08-17-2024 take 1 tablet by mouth every six hours as needed for pain oxyCODONE (ROXICODONE) 5 MG immediate release tablet Indications: (spontaneous vaginal delivery) Take 1 tablet by mouth every 6 hours as needed for Pain for up to 3 days. Intended supply: 3 days. Take lowest dose possible to manage pain Max Daily Amount: 20 mg 12 tablet 08/14/2024 08/17/2024 Active Start: 12-20-2016 take 5 mg by mouth e very four hours as needed 5 mg, Oral, EVERY 4 HOURS PRN, Starting on 08/13/24 at 1026, Until Discontinued, Pain Moderate (4-6) take 1 tablet by lynn every six hours as needed for pain oxyCODONE 5 MG immediate release tablet Take 5 mg by mouth every 6 hours as needed for Pain. Active phenazopyridine hydrochloride 95 mg oral tablet (10 sources) Start: 09-12-2024 End: 12-12-2024 take 1 tablet by mouth three times daily as needed for muscle spasms [facility] 95 MG tablet Indications: Recurrent UTI TAKE 1 TABLET BY MOUTH 3 TIMES A DAY NEEDED FOR BLADDER SPASMS 90 tablet 09/12/2024 12/12/2024 Discontinued (Other) pregabalin 200 mg oral capsule (10 sources) Start: 09-28-2019 Pregabalin (LY ALEXANDR) 200 mg capsule 09/28/2019 Suspended Prenat w/o Z-EG-Vyekzst-FA-DHA (PNV-DHA) 27-0.6-0.4-300 MG capsule (17 sources) Start: 11-10-2024 End: 04-04-2025 take 1 capsule by mouth once daily Prenat w/o G-FJ-Uxqxchm-FA-DHA (PNV-DHA) 27-0.6-0.4-300 MG capsule Take 1 capsule by mouth Daily 11/10/2024 04/04/2025 Discontinued Start: 11-10-2024 take 1 capsule by mo [facility] once daily Prenat w/o A-IS-Zttfsir-FA-DHA (PNV-DHA) 27-0.6-0.4-300 MG capsule Take 1 capsule by mouth Daily 11/10/2024 Active Start: 07-10-2024 End: 10-18-2024 Prenat w/o D-JP-Rmsnavi-FA-D CLARKE (PNV-DHA) 27-0.6-0.4-300 MG capsule Use 1 capsule in the mouth or throat 07/10/2024 10/18/2024 Discontinued (Therapy completed) Start: 07-10-2024 Prenat w/o A-F X-Cgkhwjf-SH-DHA (PNV-DHA) 27-0.6-0.4-300 MG capsule Use 1 capsule in the mouth or throat 07/10/2024 Active rifAMPin 300 mg oral capsule (10 sources) Rifamycin Antibacterial take 1 capsule by mouth once daily rifAMPin (RIFADIN) 300 mg capsule Take 300 mg by mouth once daily. Suspended simethicone 80 mg chewable tablet (1 source) Start: 4 take 80 mg by mouth every six hours as needed 80 mg, Oral, EVERY 6 HOURS PRN, Starting on 08/12/24 at 2122, Until Discontinued, Cramping, Flatulence, Problems Active Problems Problem Classification Problem Date Documented Da te Episodic/Chronic Anxiety disorders (20 sources) Anxiety; Translations: [Mild anxiety] Onset: 3 01-19-2016 Chronic Aortic; peripheral; and visceral artery aneurysms (20 sources) Dissection of carotid artery; Translations: [Dissection of carotid artery] Onset: 4 11-24-2023 Chronic Asthma (20 sources) Mild intermittent asthma; Translations: [Mild intermittent asthma, uncomplicated] Onset: 0 05-01-2020 Chronic Chronic ulcer of skin (20 sources) Pressure ulcer of buttock; Translations: [Pressure ulcer of unspecified buttock, unspecified stage] Onset: 5 06-18-2015 Chronic Contraceptive and procreative management (3 sources) Patient encounter status; Translations: [Encounter for insertion of intrauterine contraceptive device] Onset: 4 08-16-2024 Episodic Diseases of white blood cells (20 sources) Leukocytosis; Translations: [Elevated white blood cell count, unspecified] Onset: 4 Resolved: 4 11-24-2023 Chronic Disorders of lipid metabolism (20 sources) Raised low density lipoprotein cholesterol; Translations: [Pure hypercholesterolemia, unspecified] Onset: 3 03-24-2023 Chronic Esophageal disorders (20 sources) Gastroesophageal reflux disease without esophagitis; Translations: [Gastro-esophageal reflux disease without esophagitis] Onset: 0 05-01-2020 Chronic Genitourinary symptoms and ill-defined conditions (20 sources) Unspecified urinary incontinence; Translations: [Incontinence] Onset: 6 Chronic Genitourinary symptoms and ill-defined conditions (13 sources) Unspecified abnormal findings in urine; Translations: [Retention of urine] Onset: 4 Resolved: 6 02-26-2016 Episodic Immunizations and screening for infectious disease (2 sources) Extended spectrum beta-lactamase producing bacteria carrier; Translations: [ESBL E. coli carrier] Onset: 4 08-16-2024 Episodic Infective arthritis and osteomyelitis (except that caused by tuberculosis or sexually transmitted disease) (20 sources) Osteomyelitis; Translations: [Osteomyelitis, unspecified] Onset: 0 03-21-2020 Chronic Menstrual disorders (4 sources) Dysmenorrhea; Translations: [Dysmenorrhea, unspecified] Onset: 4 08-16-2024 Chronic Miscellaneous mental health disorders (2 sources) depression; Translations: [ depression] 12-12-2024 Episodic Mood disorders (20 sources) Reactive depression (situational); Translations: [Major depressive disorder, single episode, unspecified] Onset: 3 03-24-2023 Chronic Nausea and vomiting (4 sources) Nausea; Translations: [Nausea] 10-18-2024 Episodic Osteoporosis (20 sources) Disuse osteoporosis; Translations: [Other osteoporosis without current pathological fracture] Onset: 6 04-27-2016 Chronic Other aftercare (4 sources) Other [facility] (current) drug therapy; Translations: [OTH [facility] CURRENT DRUG THERAPY] Onset: 2 Episodic Other complications of (3 sources) Maternal obesity complicating , childbirth and the puerperium, antepartum; Translations: [Obesity complicating , third trimester] Onset: 4 08-02-2024 Chronic Other complications of (4 sources) Urinary tract infection in ; Translations: [Unspecified infection of urinary tract in , third trimester] Onset: 4 08-02-2024 Episodic Other complications of (3 sources) High risk ; Translations: [Supervision of high risk , unspecified, unspecified trimester] Onset: 4 08-02-2024 Episodic Other complications of (3 sources) Elderly primigravida; Translations: [Supervision of elderly primigravida, third trimester] Onset: 4 08-02-2024 Episodic Other complications of (3 sources) heart deceleration; Translations: [Maternal care for abnormalities of the heart rate or rhythm, unspecified trimester, not applicable or unspecified] Onset: 4 08-02-2024 Episodic Other complications of (3 sources) Flank pain; Translations: [Other specified related conditions, unspecified trimester] Onset: 4 08-02-2024 Episodic Other complications of (2 sources) Maternal tobacco use; Translations: [Smoking (tobacco) complicating , third trimester] Onset: 4 08-04-2024 Episodic Other complications of (1 source) Disease of nervous system complicating , childbirth and puerperium; Translations: [Diseases of the nervous system complicating , third trimester] Onset: 4 08-09-2024 Episodic Other complications of (2 sources) Unspecified infection of urinary tract in , third trimester; Translations: [Infection of urinary tract in in third trimester] Onset: 4 Episodic Other diseases of bladder and urethra (20 sources) Neurogenic bladder; Translations: [Neuromuscular dysfunction of bladder, unspecified] Onset: 5 08-07-2015 Chronic Other diseases of bladder and urethra (20 sources) Bladder dysfunction; Translations: [Neuromuscular dysfunction of bladder, unspecified] Onset: 3 03-24-2023 Chronic Other diseases of bladder and urethra (20 sources) Low compliance bladder; Translations: [Other neuromuscular dysfunction of bladder] Onset: 6 09-21-2016 Chronic Other diseases of bladder and urethra (1 source) Neuromuscular dysfunction of bladder, unspecified; Translations: [Neurogenic bladder] Onset: 7 Chronic Other diseases of bladder and urethra (1 source) Neurogenic bladder NOS Onset: 5 08-07-2015 Chronic Other female genital disorders (20 sources) Urethrovaginal fistula; Translations: [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] Onset: 1 07-09-2024 Chronic Other female genital disorders (13 sources) Vesicovaginal fistula; Translations: [Vesicovaginal fistula] Onset: 1 12-22-2020 Chronic Other female genital disorders (2 sources) Vaginal bleeding; Translations: [Abnormal uterine and vaginal bleeding, unspecified] Onset: 4 Resolved: 4 08-14-2024 Chronic Other female genital disorders (1 source) 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; Translations: [Urethrovaginal fistula] Onset: 1 Chronic Other female genital disorders (1 source) Vesicovaginal fistula; Translations: [Vesicovaginal fistula] Onset: 4 Chronic Other fractures (2 sources) Fracture of pelvis; Translations: [Fracture of unspecified parts of lumbosacral spine and pelvis, initial encounter for closed fracture] Onset: 4 08-13-2024 Episodic Other gastrointestinal disorders (20 sources) Neurogenic bowel; Translations: [Neurogenic bowel, not elsewhere classified] Onset: 5 08-07-2015 Chronic Other gastrointestinal disorders (1 source) Neurogenic bowel Onset: 5 08-07-2015 Chronic Other gastrointestinal disorders (2 sources) Bowel problem; Translations: [Disease of intestine, unspecified] 07-04-2024 Episodic Other hereditary and degenerative nervous system conditions (20 sources) Restless legs; Translations: [Restless legs syndrome] Onset: 3 03-24-2023 Chronic Other infections; including parasitic (3 sources) H/O: infectious disease; Translations: [Personal history of other infectious and parasitic diseases] Onset: 4 08-02-2024 Episodic Other injuries and conditions due to external causes (14 sources) Acute paraplegia; Translations: [Injury, unspecified, initial encounter] Onset: 4 09-21-2016 Episodic Other nervous system disorders (2 sources) Carpal tunnel syndrome of right wrist; Translations: [Carpal tunnel syndrome, right upper limb] Onset: 6 02-26-2016 Chronic Other nervous system disorders (2 sources) Carpal tunnel syndrome 08-26-2017 Chronic Other nervous system disorders (20 sources) Acute radial nerve palsy; Translations: [Lesion of radial nerve, right upper limb] Onset: 3 03-24-2023 Chronic Other nervous system disorders (20 sources) Bilateral carpal tunnel syndrome; Translations: [Carpal tunnel syndrome, bilateral upper limbs] Onset: 3 03-24-2023 Chronic Other nervous system disorders (20 sources) Chronic pain; Translations: [Other chronic pain] Onset: 3 03-24-2023 Chronic Other nervous system disorders (1 source) Carpal tunnel syndrome Onset: 6 02-26-2016 Chronic Other nervous system disorders (1 source) Chronic pain syndrome; Translations: [Chronic pain syndrome] 01-25-2025 Chronic Other nutritional; endocrine; and metabolic disorders (14 sources) Obesity; Translations: [Obesity, unspecified] Onset: 6 09-21-2016 Chronic Other nutritional; endocrine; and metabolic disorders (20 sources) Hypocalcemia; Translations: [Hypocalcemia] Onset: 4 Resolved: 4 11-24-2023 Chronic Other nutritional; endocrine; and metabolic disorders (2 sources) Obesity caused by energy imbalance; Translations: [Morbid (severe) obesity due to excess calories] 12-27-2024 Chronic Other nutritional; endocrine; and metabolic disorders (2 sources) Body mass index 30+ - obesity; Translations: [Body mass index (BMI) 35.0-35.9, adult] 12-27-2024 Chronic Other and delivery including normal (5 sources) Vaginal delivery; Translations: [Encounter for full-term uncomplicated delivery] Onset: 4 Resolved: 4 08-14-2024 Episodic Other screening for suspected conditions (not mental disorders or infectious disease) (3 sources) Culture positive for methicillin resistant Staphylococcus aureus; Translations: [Patient encounter status] Onset: 0 03-24-2020 Episodic Comment on above: MRSA in blood cultur es x 2 on 03/20/2020 Other skin disorders (2 sources) History of pressure ulcer; Translations: [Personal history of diseases of the skin and subcutaneous tissue] Onset: 4 08-04-2024 Episodic Paralysis (20 sources) Paraplegia; Translations: [Paraplegia, unspecified] Onset: 4 04-02-2020 Chronic Residual codes; unclassified (20 sources) Dependence on wheelchair; Translations: [Dependence on wheelchair] Onset: 0 05-01-2020 Chronic Residual codes; unclassified (1 source) Wheelchair dependence Onset: 0 05-01-2020 Chronic Residual codes; unclassified (1 source) Gestation period, 32 weeks; Translations: [32 weeks gestation of ] 07-09-2024 Episodic Residual codes; unclassified (1 source) Failed encounter; Translations: [No-show for appointment] 07-27-2024 Episodic Residual codes; unclassified (5 sources) Gestation period, 35 weeks; Translations: [35 weeks gestation of ] Onset: 4 08-02-2024 Episodic Residual codes; unclassified (1 source) Tobacco user; Translations: [Tobacco use] Onset: 4 08-01-2024 Episodic Residual codes; unclassified (1 source) H/O: major abdominal surgery; Translations: [Other specified postprocedural states] Onset: 4 08-02-2024 Episodic Residual codes; unclassified (2 sources) Gestation period, 36 weeks; Translations: [36 weeks gestation of ] Onset: 4 Resolved: 4 08-14-2024 Episodic Residual codes; unclassified (1 source) 35 weeks gestation of ; Translations: [35 weeks gestation of ] Onset: Episodic Spinal cord injury (20 sources) Injury of thoracic spinal cord; Translations: [Unspecified injury at T7-T10 level of thoracic spinal cord, initial encounter] Onset: 4 05-01-2020 Chronic Spondylosis; intervertebral disc disorders; other back problems (3 sources) Acute low back pain; Translations: [Acute midline low back pain without sciatica] 07-09-2024 Episodic Substance-related disorders (20 sources) Smoker; Translations: [Nicotine dependence, unspecified, uncomplicated] Onset: 4 06-09-2018 Chronic Comment on above: Added secondary to d ocumentation in Social History. Unclassified (2 sources) Chronic Stomach Pain 06-25-2011 Unclassified (1 source) Open fracture of bone of knee joint; Translations: [Type I or II open fracture of bone of left knee joint] Onset: 4 09-26-2014 Unclassified (1 source) Open fracture of bone of knee joint; Translations: [Type I or II open fracture of bone of right knee joint] Onset: 4 09-26-2014 Unclassified (1 source) No-show for appointment; Translations: [No-show for appointment] Onset: 4 Unclassified (2 sources) Non-pressure chronic ulcer of right lower leg, unspecified ulcer stage (CMS/[facility]) 12-27-2024 Urinary tract infections (11 sources) Urinary tract infection, site not specified; Translations: [Chronic urinary tract infection] Onset: 2 Episodic Past or Other Problems Problem Classification Problem Date Documented Da te Episodic/Chronic Abdominal pain (20 sources) Abdominal pain; Translations: [Unspecified abdominal pain] Onset: 11-24-2023 01-25-2021 Episodic Acute posthemorrhagic anemia (20 sources) Acute posthemorrhagic anemia; Translations: [Acute posthemorrhagic anemia] Onset: 09-23-2014 Resolved: 08-13-2024 11-24-2023 Episodic Allergic reactions (20 sources) Exogenous dermatitis; Translations: [Unspecified contact dermatitis, unspecified cause] Onset: 07-06-2024 08-01-2024 Episodic Bacterial infection; unspecified site (20 sources) Bacteremia due to Methicillin resistant Staphylococcus aureus; Translations: [Bacteremia] Onset: 03-24-2023 04-03-2020 Episodic Complications of surgical procedures or medical care (20 sources) Stenosis of stoma; Translations: [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] Onset: 11-19-2020 11-19-2020 Episodic Crushing injury or internal injury (20 sources) Laceration of spleen; Translations: [Unspecified laceration of spleen, initial encounter] Onset: 09-23-2014 11-24-2023 Episodic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 [#/Vol] ANISOCYTOSIS PRESENT [facility] Segmented neutrophils/100 WBC (Bld) 7.60 % [facility] WBC other (Bld) [#/Vol] 10.6 [facility] CBC with Diffon 08-13-2024 Abs. Basophil 0.05 k/uL Normal 0.00-0.20 [facility] Comment on above: Performed By: #### C DP #### [facility] [address] [place] [id number] Senior Investment Manager: Clyde Del Real MD Abs.Imm.Granulocyt e 0.09 k/uL Normal 0.00-0.30 [facility] Comment on above: Performed By: #### C DP #### [place] [address] Senior Investment Manager: Clyde Del Real MD Abs.Neutrophil (Seg) 7.60 k/uL Normal 1.50-8.10 [facility] Comment on above: Performed By: #### C DP #### [address] [address] Senior Investment Manager: Clyde Del Real MD Basophils/100 WBC (Bld) 1 % Normal 0-2 [facility] Comment on above: Performed By: #### C DP #### [facility] [address] [place] [id number] Senior Investment Manager: Clyde Del Real MD Eosinophils (Bld) [#/Vol] 0.14 10*3/uL Normal 0.00-0.44 [facility] Comment on above: Performed By: #### C DP #### [address] [address] Senior Investment Manager: Clyde Del Real MD Eosinophils/100 WBC (Bld) 1 % Normal 1-4 [facility] Comment on above: Performed By: #### C DP #### [address] [address] Senior Investment Manager: Clyde Del Real MD Erythrocyte distribution width (RBC) [Ratio] 15.7 % High 11.8-14.4 [facility] Comment on above: Performed By: #### C DP #### [address] [address] Senior Investment Manager: Clyde Del Real MD Hematocrit (Bld) [Volume fraction] 32.7 % Low 36.3-47.1 [facility] Comment on above: Performed By: #### C DP #### [address] [address] Senior Investment Manager: Clyde Del Real MD Hemoglobin (Bld) [Mass/Vol] 10.4 g/dL Low 11.9-15.1 [facility] Comment on above: Performed By: #### C DP #### [address] [address] Senior Investment Manager: Clyde Del Real MD Immature granulocytes/100 WBC (Bld) 1 % High 0 [facility] Comment on above: Performed By: #### C DP #### [address] [address] Senior Investment Manager: Clyde Del Real MD Lymphocytes (Bld) [#/Vol] 1.73 10*3/uL Normal 1.10-3.70 [facility] Comment on above: Performed By: #### C DP #### [address] [address] Senior Investment Manager: Clyde Del Real MD Lymphocytes/100 WBC (Bld) 16 % Low 24-43 [facility] Comment on above: Performed By: #### C DP #### [address] [address] Senior Investment Manager: Clyde Del Real MD MCH (RBC) [Entitic mass] 30.1 pg Normal 25.2-33.5 [facility] Comment on above: Performed By: #### C DP #### [address] [address] Senior Investment Manager: Clyde Del Real MD MCHC (RBC) [Mass/Vol] 31.8 g/dL Normal 28.4-34.8 [facility] Comment on above: Performed By: #### C DP #### [address] [address] Senior Investment Manager: Clyde Del Real MD MCV (RBC) [Entitic vol] 94.8 fL Normal 82.6-102.9 [facility] Comment on above: Performed By: #### C DP #### [address] [address] Senior Investment Manager: Clyde Del Real MD Monocytes (Bld) [#/Vol] 0.97 10*3/uL Normal 0.10-1.20 [facility] Comment on above: Performed By: #### C DP #### [address] [address] Senior Investment Manager: Clyde Del Real MD Monocytes/100 WBC (Bld) 9 % Normal 3-12 [facility] Comment on above: Performed By: #### C DP #### [address] [address] Senior Investment Manager: Clyde Del Real MD Neutrophil (Seg) 72 % High 36-65 [facility] Comment on above: Performed By: #### C DP #### [address] [address] Senior Investment Manager: Clyde Del Real MD NRBC Automated 0.0 per 100 WBC Normal 0.0 [facility] Comment on above: Performed By: #### C DP #### [address] [address] Senior Investment Manager: Clyde Del Real MD Platelet mean volume (Bld) [Entitic vol] 11.0 fL Normal 8.1-13.5 [facility] Comment on above: Performed By: #### C DP #### [address] [address] Senior Investment Manager: Clyde Del Real MD Platelets (Bld) [#/Vol] 384 10*3/uL Normal 138-453 [facility] Comment on above: Performed By: #### C DP #### [address] [address] Senior Investment Manager: Clyde Del Real MD RBC (Bld) [#/Vol] 3.45 10*6/uL Low 3.95-5.11 [facility] Comment on above: Performed By: #### C DP #### [address] [address] Senior Investment Manager: Clyde Del Real MD RBC morphology finding Nom (Bld) ANISOCYTOSIS PRESENT Normal [facility] Comment on above: Performed By: #### C DP #### [address] [address] Senior Investment Manager: Clyde Del Real MD WBC (Bld) [#/Vol] 10.6 10*3/uL Normal 3.5-11.3 [facility] Comment on above: Performed By: #### C DP #### [address] [address] Senior Investment Manager: Clyde Del Real MD DRUG SCREEN MULTI URINEon Amphetamines Ql (U) Negative NEGATIVE [facility] Comment on above: Cutoff: 1000 ng/mL Barbiturates Screen Ql (U) Negative NEGATIVE [facility] Comment on above: Cutoff: 200 ng/ml Benzodiazepines Ql (U) Negative NEGATIVE [facility] Comment on above: Cutoff: 200 ng/ml Cannabinoids Screen Ql (U) Positive Abnormal NEGATIVE [facility] Comment on above: Cutoff: 50 ng/ml Cocaine Ql (U) Negative NEGATIVE [facility] Comment on above: Cutoff: 300 ng/ml fentaNYL Ql (U) Negative NEGATIVE [facility] Comment on above: Cutoff: 5 ng/ml Interpretation and review of laboratory results Abnormal [facility] Methadone Ql (U) Negative NEGATIVE [facility] Comment on above: Cutoff: 300 ng/ml Opiates Screen Ql (U) Positive Abnormal NEGATIVE [facility] Comment on above: Cutoff: 300 ng/ml oxyCODONE Ql (U) Negative NEGATIVE [facility] Comment on above: Cutoff: 100 ng/ml Phencyclidine Ql (U) Negative NEGATIVE [facility] Comment on above: Cutoff: 25 ng/ml Test Information Assay provides rapid clinical screening only. Presumptive positive results for legal purposes should be confirmed by another method. To request confirmation, please call the lab within 7 days of sample submission. [facility] Drug Scr, Abuse, Uron 2023 Cannabinoid(s),Ur Positive Abnormal NEG [facility] Comment on above: Result Comment: Cuto ff: 50 ng/ml Performed By: #### D AU #### [employer] [address] [place] [address] Senior Investment Manager: Clyde Del Real MD Interpretive Info Assay provides rapid clinical screening only. Presumptive positive results for Normal [facility] Comment on above: Result Comment: lega l purposes should be confirmed by another method. To request confirmation, please call the lab within 7 days of sample submission. Performed By: #### D AU #### [employer] [address] [place], [place] [phone] Senior Investment Manager: Clyde Del Real MD Opiate(s), Ur Positive Abnormal NEG [facility] Comment on above: Result Comment: Cuto ff: 300 ng/ml Performed By: #### D AU #### [employer] [address] [place], [place] [phone] Senior Investment Manager: Clyde Del Real MD Amphetamine(s),Ur Negative Normal NEG [facility] Comment on above: Result Comment: Cuto ff: 1000 ng/mL Performed By: #### D AU #### [address] [address] Senior Investment Manager: Clyde Del Real MD Barbiturate(s),Ur Negative Normal NEG [facility] Comment on above: Result Comment: Cuto ff: 200 ng/ml Performed By: #### D AU #### [address] [address] Senior Investment Manager: Clyde Del Real MD Benzodiazepine(s) Negative Normal NEG [facility] Comment on above: Result Comment: Cuto ff: 200 ng/ml Performed By: #### D AU #### [address] [address] Senior Investment Manager: Clyde Del Real MD Cocaine Metabolite Negative Normal NEG [facility] Comment on above: Result Comment: Cuto ff: 300 ng/ml Performed By: #### D AU #### [address] [address] Senior Investment Manager: Clyde Del Real MD Fentanyl, Urine Negative Normal NEG [facility] Comment on above: Result Comment: Cuto ff: 5 ng/ml Performed By: #### D AU #### [address] [address] Senior Investment Manager: Clyde Del Real MD Methadone Ql (U) Negative Normal NEG [facility] Comment on above: Result Comment: Cuto ff: 300 ng/ml Performed By: #### D AU #### [facility] [address] [place] [phone] Senior Investment Manager: Clyde Del Real MD Oxycodone, Urine Negative Normal NEG [facility] Comment on above: Result Comment: Cuto ff: 100 ng/ml Performed By: #### D AU #### [employer] [address] [place], [place] [phone] Senior Investment Manager: Clyde Del Real MD Phencyclidine, Ur Negative Normal NEG [facility] Comment on above: Result Comment: Cuto ff: 25 ng/ml Performed By: #### D AU #### [employer] [address] [place], [place] [phone] Senior Investment Manager: Clyde Del Real MD BLOOD BANK SPECIMENon 2023 [facility] CBC with Auto Differentialon 08-12-2024 Basophils (Bld) [#/Vol] 0.06 10*3/uL [facility] Basophils/100 WBC (Bld) 0 % 0 - 2 % [facility] Eosinophils (Bld) [#/Vol] 0.09 10*3/uL [facility] Eosinophils/100 WBC (Bld) 1 % 1 - 4 % [facility] Erythrocyte distribution width (RBC) [Ratio] 15.6 % High 11.8 - 14.4 % [facility] Hematocrit (Bld) [Volume fraction] 35.8 % Low 36.3 - 47.1 % [facility] Hemoglobin (Bld) [Mass/Vol] 11.5 g/dL Low 11.9 - 15.1 g/dL [facility] Immature granulocytes (Bld) [#/Vol] 0.15 10*3/uL [facility] Immature granulocytes/100 WBC (Bld) 1 % High 0 [facility] Interpretation and review of laboratory results Abnormal [facility] Lymphocytes/100 WBC (Bld) 11 % Low 24 - 43 % [facility] Lymphocytes/100 WBC (Bld) 1.81 % [facility] MCH (RBC) [Entitic mass] 29.8 pg 25.2 - 33.5 pg [facility] MCHC (RBC) [Mass/Vol] 32.1 g/dL 28.4 - 34.8 g/dL [facility] MCV (RBC) [Entitic vol] 92.7 fL 82.6 - 102.9 fL [facility] Monocytes/100 WBC (Bld) 7 % 3 - 12 % [facility] Monocytes/100 WBC (Bld) 1.10 % [facility] Neutrophils/100 WBC (Bld) 80 % High 36 - 65 % [facility] Nucleated RBC/100 WBC (Bld) [Ratio] 0.0 % 0.0 per 100 WBC [facility] Platelet mean volume (Bld) [Entitic vol] 10.8 fL 8.1 - 13.5 fL [facility] Platelets (Bld) [#/Vol] 425 10*3/uL [facility] RBC (Bld) [#/Vol] 3.86 10*6/uL Low 3.95 - 5.1 1 m/uL [facility] RBC (Bld) [#/Vol] ANISOCYTOSIS PRESENT [facility] Segmented neutrophils/100 WBC (Bld) 13.00 % High [facility] WBC other (Bld) [#/Vol] 16.2 High [facility] CBC with Diffon 08-12-2024 Abs. Basophil 0.06 k/uL Normal 0.00-0.20 [facility] Comment on above: Performed By: #### C DP #### [facility] [address] [place] [address] Senior Investment Manager: Clyde Del Real MD Abs.Imm.Granulocyt e 0.15 k/uL Normal 0.00-0.30 [facility] Comment on above: Performed By: #### C DP #### [facility] [place] [phone] Senior Investment Manager: Clyde Del Real MD Abs.Neutrophil (Seg) 13.00 k/uL High 1.50-8.10 [facility] Comment on above: Performed By: #### C DP #### [facility] [address] [place] [phone] Senior Investment Manager: Clyde Del Real MD Basophils/100 WBC (Bld) 0 % Normal 0-2 [facility] Comment on above: Performed By: #### C DP #### [address] [address] Senior Investment Manager: Clyde Del Real MD Eosinophils (Bld) [#/Vol] 0.09 10*3/uL Normal 0.00-0.44 [facility] Comment on above: Performed By: #### C DP #### [address] [address] Senior Investment Manager: Clyde Del Real MD Eosinophils/100 WBC (Bld) 1 % Normal 1-4 [facility] Comment on above: Performed By: #### C DP #### [address] [address] Senior Investment Manager: Clyde Del Real MD Erythrocyte distribution width (RBC) [Ratio] 15.6 % High 11.8-14.4 [facility] Comment on above: Performed By: #### C DP #### [address] [address] Senior Investment Manager: Clyde Del Real MD Hematocrit (Bld) [Volume fraction] 35.8 % Low 36.3-47.1 [facility] Comment on above: Performed By: #### C DP #### [address] [address] Senior Investment Manager: Clyde Del Real MD Hemoglobin (Bld) [Mass/Vol] 11.5 g/dL Low 11.9-15.1 [facility] Comment on above: Performed By: #### C DP #### [address] [address] Senior Investment Manager: Clyde Del Real MD Immature granulocytes/100 WBC (Bld) 1 % High 0 [facility] Comment on above: Performed By: #### C DP #### [address] [address] Senior Investment Manager: Clyde Del Real MD Lymphocytes (Bld) [#/Vol] 1.81 10*3/uL Normal 1.10-3.70 [facility] Comment on above: Performed By: #### C DP #### [address] [address] Senior Investment Manager: Clyde Del Real MD Lymphocytes/100 WBC (Bld) 11 % Low 24-43 [facility] Comment on above: Performed By: #### C DP #### [address] [address] Senior Investment Manager: Clyde Del Real MD MCH (RBC) [Entitic mass] 29.8 pg Normal 25.2-33.5 [facility] Comment on above: Performed By: #### C DP #### [address] [address] Senior Investment Manager: Clyde Del Real MD MCHC (RBC) [Mass/Vol] 32.1 g/dL Normal 28.4-34.8 [facility] Comment on above: Performed By: #### C DP #### [address] [address] Senior Investment Manager: Clyde Del Real MD MCV (RBC) [Entitic vol] 92.7 fL Normal 82.6-102.9 [facility] Comment on above: Performed By: #### C DP #### [address] [address] Senior Investment Manager: Clyde Del Real MD Monocytes (Bld) [#/Vol] 1.10 10*3/uL Normal 0.10-1.20 [facility] Comment on above: Performed By: #### C DP #### [address] [address] Senior Investment Manager: Clyde Del Real MD Monocytes/100 WBC (Bld) 7 % Normal 3-12 [facility] Comment on above: Performed By: #### C DP #### [address] [address] Senior Investment Manager: Clyde Del Real MD Neutrophil (Seg) 80 % High 36-65 [facility] Comment on above: Performed By: #### C DP #### [address] [address] Senior Investment Manager: Clyde Del Real MD NRBC Automated 0.0 per 100 WBC Normal 0.0 [facility] Comment on above: Performed By: #### C DP #### [address] [address] Senior Investment Manager: Clyde Del Real MD Platelet mean volume (Bld) [Entitic vol] 10.8 fL Normal 8.1-13.5 [facility] Comment on above: Performed By: #### C DP #### [address] [address] Senior Investment Manager: Clyde Del Real MD Platelets (Bld) [#/Vol] 425 10*3/uL Normal 138-453 [facility] Comment on above: Performed By: #### C DP #### [address] [address] Senior Investment Manager: Clyde Del Real MD RBC (Bld) [#/Vol] 3.86 10*6/uL Low 3.95-5.11 [facility] Comment on above: Performed By: #### C DP #### [address] [address] Senior Investment Manager: Clyde Del Real MD RBC morphology finding Nom (Bld) ANISOCYTOSIS PRESENT Normal [facility] Comment on above: Performed By: #### C DP #### [address] [address] Senior Investment Manager: Clyde Del Real MD WBC (Bld) [#/Vol] 16.2 10*3/uL High 3.5-11.3 [facility] Comment on above: Performed By: #### C DP #### [facility] [address] [place] [address] Senior Investment Manager: MD Tyshawn Owen 08-12-2024 L Specimen: [id number] Received: 08/14/24 Status: ESVIN Rosario Num: [id number] Spec Type: Surgical Subm Dr: Pato Lambert Tissues: A Placenta - 3rd Trimester (Greater than 28 weeks) (PLACENTA) Procedures: HE/3, Gross/Micro L5 Age/ Patient Sex Location Account Attending Physician Tyesha Thomson 38/F LABELL [id number] Pato Lambert SPEC NUM: [id number] RECD: 08/14/24 STATUS: ESVIN ROSARIO NUM: [id number] LADONNA: 08/12/24- SUBM DR: Pato Lambert ENTERED: 08/14/24 [facility] DR: Josh,Lab SPEC TYPE: Surgical DEPT: [facility] ENTERED BY: [id number] RECV BY: [id number] ORDERED: HE/3, Gross/Micro L5 ORDERED: HE/3, Gross/Micro L5 Pathological Diagnosis Placental removal, : -Mature third-trimester placenta with three-vessel cord (395 gm, unknown EDC) -No evidence of acute chorioamnionitis, funisitis, or villitis -No significant marginal or retroplacental hemorrhage, and also no evidence of disruption of the attached basal plate portion, or any significant PMN response in surround tissue, therefore also inconclusive for prelabor abruption -No other significant histopathological findings, except focal mild incidental subchorionic fibrin degeneration Clinical Information Suspected placental abruption Estimated 35 weeks History of spinal injury, limited reactive Unknown Apgars, delivered in Squad Gross Description Received in formalin labeled placenta : Single MEMBRANES: Specimen: [id number] Received: 08/14/24 Status: ESVIN Rosario Num: [id number] Spec Type: Surgical Subm Dr: Pato Lambert Tissues: A Placenta - 3rd Trimester (Greater than 28 weeks) (PLACENTA) Procedures: HE/3, Gross/Micro L5 Patient: Tyesha Thomson [id number] (Continued) Specimen: [id number] Received: 08/14/24 (Continued) Gross Description (Continued) Signed (signature on file) Janice Montero MD 08/17/24 1745 Specimen: [id number] Received: 08/14/24 Status: ESVIN Rosario Num: [id number] Spec Type: Surgical Subm Dr: Pato Lambert Tissues: A Placenta - 3rd Trimester (Greater than 28 weeks) (PLACENTA) Procedures: HE/3, Gross/Micro L5 Patient: Tyesha Thomson [id number] (Continued) Specimen: [id number] Received: 08/14/24 (Continued) Gross Description (Continued) Placenta Sac Rupture (cm from margin): 5 cm Color: Blue-granados Other Characteristics: No Insertion Site: [Marginal 100%] CORD: Appearance: Unremarkable Site of Insertion: [Eccentric] Length Diameter (cm): 6.5 x 1.3 cm True Knots: No Number of vessels: 3 GENERAL: Trimmed Weight (grams): 395 g Complete: Indeterminate, the placental floor displays a region of densely adherent hemorrhagic material Size 1 x Size 2 x Size 3 (cm): 16.5 x 14.5 x 2.8 cm Accessory Lobe(s): No PLACENTAL DISK: Color of Surface: Blue-granados Sub-amniotic Cyst: No Amnion Nodosum: No Subchorionic Fibrin: Yes, up to 0.3 cm in thickness, less than 5% Appearance of Cut Surface: [Unremarkable] Maternal floor: There are approximately 8 cc (less than 5%) of densely adherent hemorrhagic material, 5.5 x 4 x 2 cm; however, no extrinsic compression is identified. Retroplacental hematoma: [See above] Cassettes: A1 Rolled membrane, two sections of cord A2-3 Order Taker sections of placenta (to include bisected full-thickness cross-section in cassette A2 with densely adherent hemorrhagic material) (3, ss, [id number]) JG Microscopic Description Microscopic examinations are performed supporting the above interpretation Specimen: [id number] Received: 08/14/24 Status: ESVIN Rosairo Num: [id number] Spec Type: Surgical Subm Dr: Pato Lambert Tissues: A Placenta - 3rd Trimester (Greater than 28 weeks) (PLACENTA) Procedures: HE/3, Gross/Micro L5 Patient: Tyesha Thomson [id number] (Continued) Specimen: [id number] Received: 08/14/24 (Continued) Signed (signature on file) Janice Montero MD 08/17/24 1745 Specimen: (more content not included)... Normal [facility] T. PALLIDUM ABon 08-12-2024 T. pallidum Ab IA Ql (S) Non-Reactive NONREACTIVE [facility] Comment on above: T. pallidum antibodies are not detected. There is no serological evidence of infection with T. pallidum (early primary syphilis cannot be excluded). Retest in 2-4 weeks if syphilis is clinically suspect. [facility] T.pallidum Ab Screenon 08-12 T.pallidum Ab Screen Non-Reactive Normal NR [facility] Comment on above: Result Comment: T. pallidum antibodies are not detected. There is no serological evidence of infection with T. pallidum (early primary syphilis cannot be excluded). Retest in 2-4 weeks if syphilis is clinically suspect. Performed By: #### T REP #### [employer] [address] [place] [address] [phone] Senior Investment Manager: Clyde Del Real MD TYPE AND SCREENon 08-12-2024 ABO and Rh group Nom (Bld) Blood group O Rh(D) positive [facility] Arm Band Number BE [id number] [facility] Blood Bank Sample Expiration 08/15/2024,2359 [facility] Blood group antibodies identified Nom Negative [facility] Type + Screenon 08-12-2024 Type + Screen Sample Expiration 08/15/2024,2359 Arm Band Number BE [id number] ABO/Rh(D) O POSITIVE Antibody Screen NEGATIVE Normal [facility] Comment on above: Performed By: #### T YS #### [employer] [address] [place], [place] [phone] Senior Investment Manager: MD Emerita Owen 08-09-2024 [facility] TYESHA THOMSON ([id number]) 1985 F Date Time Provider Department 08/09[facility] visit today, we recorded the following information about you: Salima Abrams RN 08/09/2024 8:22 AM Signed Call to patient to confirm visit for today. Patient had previously confirmed she would attend see telephone encounter from 08/07 My call went to , unable to leave message as voicemail box is full. Text message sent to patient. RADHA Mandujano Samantha, RN 08/09/2024 8:51 AM Signed Text message returned by patient. Reports she is not going to attend the appointments scheduled for her today. She reports she will reschedule, reviewed there may not be time before her scheduled delivery 08/16, patient requests admission on Tuesday 08/14 instead. Will review with team. Salima Abrams RN Allergies As of Date: 08/09/2024 Noted Allergy Reaction CEFAZOLIN 09/21/2016 2 - Rash 9 - Itching CIPROFLOXACIN 09/21/2016 1 - Mental Status Change ZOFRAN (ONDANSETRON HCL (PF)) 09/21/2016 14 - Other: See Comments Comments: Headache - pt states able to tolerate Zofran Date Reviewed: 08/03/2024 Reviewed by: Lucia Sevilla, RADHA - Fully Assessed Prescriptions as of 08/15/2024 - amoxicillin (AMOXIL) 500 mg capsule Take 2 capsules by mouth three times a day. - gabapentin (NEURONTIN) 600 mg tablet Take one and a half tablets by mouth four times daily for 42 doses. - rOPINIRole (REQUIP) 1 mg tablet Take 3 tablets by mouth once daily. - [id number] acid ( 19) 29 mg iron- 1 mg Take 1 tablet by mouth once daily. - melatonin 3 mg tablet Take 1 tablet by mouth daily at bedtime. - melatonin 3 mg tablet Take 1 tablet by mouth daily at bedtime. - ascorbic acid, vitamin C, (VITAMIN C) 500 mg tablet Take 500 mg by mouth once daily. - Multivitamin capsule Take 1 capsule by mouth once daily. - zinc sulfate [...] nebulizer solution 3 ml as needed - gabapentin (NEURONTIN) 300 mg capsule TK [...] 60 mg by mouth once daily. - gabapentin (NEURONTIN) 600 mg tablet Take 900 mg by mouth three times daily. - omeprazole (PRILOSEC) 20 mg capsule Take 40 mg by mouth once daily as needed. - baclofen (LIORESAL) 20 mg tablet Take 20 mg by mouth four times daily. 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 coli infection [Z86.19] 08/02/2024 AMA (advanced maternal age) primigravida 35+, t*08/02/2024 Maternal care for decelerations during pr*08/02/2024 35 weeks gestation of [Z3A.35] 08/02/2024 Obesity affecting in third trimester *08/02/2024 Flank pain in patient [O26.899, R10.9] 08/02/2024 Supervision of high risk in third tri*08/04/2024 History of decubitus ulcer [Z87.2] 08/04/2024 Paraplegia (HCC) [G82.20] 08/04/2024 Maternal tobacco use in third trimester [O9 (more content not included)... Normal [facility] Emerita 08-07-2024 KADEEM Telephone (OBMN) TYESHA THOMSON ([id number]) 1985 F Date Time Provider Department [facility]07[facility], we recorded the following information about you: Salima Abrams RN 08/07/2024 4:30 PM Addendum Call to patient. Discussed recent admission, patient states that she and her partner had many issues with their stay, patient had already been connected to the [facility] office. They confirmed that they were happy with their care from the medical team's perspective. Discussed plan moving forward. Plan for visit and ultrasound on 08/[address] Padilla to review delivery plan and ensure family is comfortable moving forward. Extensively discussed my role as critical care physician, reviewed that being seen as an outpatient for planning can prevent miscommunications as an inpatient. Patient accepts NICU consult. Reviewed the need for NICU admission for baby, d/t lack of locked pp unit. Reiterated banding and alarm system to ensure infant safety while inpatient. Discussed that Admission to [facility] will be on 08/15 and post delivery patient will be admitted to [facility] for recovery. Reviewed with patient that urology team will be involved in her case along with JORY. All questions answered at this time. Reassured patient and her partner. They verbalized that they are comfortable with the plan so far and look forward to their visit . They did verbalize their issue with gas money, pt reports she plans to call [facility] to inquire about mileage reimbursement. Allergies As of Date: 08/07/2024 Noted Allergy Reaction CEFAZOLIN 09/21/2016 2 - Rash 9 - Itching CIPROFLOXACIN 09/21/2016 1 - Mental Status Change ZOFRAN (ONDANSETRON HCL (PF)) 09/21/2016 14 - Other: See Comments Comments: Headache - pt states able to tolerate Zofran Date Reviewed: 08/03/2024 Reviewed by: Lucia Sevilla, ARDHA - Fully Assessed Primary Visit Diagnosis:Spinal cord injury at T8 level, sequela (HCC) [S24.103S] Other Visit Diagnosis:35 weeks gestation of [Z3A.35] Order(s):BIOPHYSICAL PROFILE US [facility] [[id number]] Order #: [id number]: 1 STANDING Prescriptions as of 08/07/2024 - amoxicillin (AMOXIL) 500 mg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 above: Performed By: #### T SH, LIPID, CMP #### [facility] [address] [place] [address] Dr. Karina Montero VITAMIN D 25 OHon 09-02-2022 VIT D 25-OH 28.4 ng/mL Normal [facility] Comment on above: Performed By: #### V ITAD #### [facility] [address] [place] [address] Dr. Karina Montero VIT D RANGES SEE BELOW [facility] Comment on above: Result Comment: <20 ng/mL Vit D deficient 20 - <30 ng/mL Vit D insufficient 30 - 100 ng/mL Vit D sufficient >100 ng/mL Potential Toxicity Performed By: #### V ITAD #### [facility] [address] [place] [address] Dr. Karina Montero Telephone Encounteron 2021 [employer] Authentication Interface Message Text LM for her to call me for appt. Pt only considered New if 3 years have passed since last visit. Normal [facility] CULTURE URINEon 01-03-2022 CULTURE URINE Isolate [...] F Trimethoprim/Sulfametho xazole >=320 R F Normal [facility] Comment on above: Performed By: #### U RCX #### [facility] [address] [place] [address] Dr. Karina Montero UA (CLEAN/CATCH) TIMBER SIZER/MICRO I F IND.on 01-01-2022 Bilirubin Ql (U) Negative Normal NEGATIVE [facility] Comment on above: Performed By: #### U ACSIND, UMICRO #### [facility] [address] [address] [address] Karina Montero Clarity (U) CLEAR Normal CLEAR [facility] Comment on above: Performed By: #### U ACSIND, UMICRO #### [facility] [address] [place] [address] Dr. Karina Montero Color (U) LT. YELLOW Normal YELLOW [facility] Comment on above: Performed By: #### U ACSIND, UMICRO #### [facility] [address] [place] [address] Dr. Karina Montero Glucose Ql (U) Negative Normal NEGATIVE [facility] Comment on above: Performed By: #### U ACSIND, UMICRO #### [facility] [address] [place] [address] Dr. Karina Montero Hemoglobin Ql (U) TRACE-LYSED Abnormal NEGATIVE [facility] Comment on above: Performed By: #### U ACSIND, UMICRO #### [facility] [address] [place] [address] Dr. Karina Montero Ketones Ql (U) Negative Normal NEGATIVE [facility] Comment on above: Performed By: #### U ACSIND, UMICRO #### [facility] [address] [place] [address] Dr. Karina Montero LEUKOCYTES LARGE Abnormal NEGATIVE [facility] Comment on above: Performed By: #### U ACSIND, UMICRO #### [facility] [address] [place] [address] Dr. Karina Montero Nitrite Ql (U) Positive Abnormal NEGATIVE [facility] Comment on above: Performed By: #### U ACSIND, UMICRO #### [facility] [address] [place] [address] Dr. Karina Montero pH (U) 8.5 [pH] Normal 5-9 [facility] Comment on above: Performed By: #### U ACSIND, UMICRO #### [facility] [address] [address] [address] Karina Montero SPEC GRAVITY 1.015 Normal 1.005-<=1.025 [facility] Comment on above: Performed By: #### U ACSIND, UMICRO #### [facility] [address] [address] [address] Karina Montero UA PROTEIN 100 mg/dl Abnormal NEGATIVE/ TRACE [facility] Comment on above: Performed By: #### U ACSIND, UMICRO #### [facility] [address] [address] [address] Karina Montero UR MICRO IND INDICATED Normal [facility] Comment on above: Performed By: #### U ACSIND, UMICRO #### [facility] [address] [place] [address] Dr. Karina Montero Urobilinogen Qn (U) 1.0 {Peterson'U}/dL Normal 0.2 - 1.0 [facility] Comment on above: Performed By: #### U ACSIND, UMICRO #### [facility] [address] [address] [address] Karina Montero URINE MICROSCOPIC ONLYon BACTERIA LARGE Abnormal NONE SEEN [facility] Comment on above: Performed By: #### U ACSIND, UMICRO #### [facility] [address] [address] [address] Karina Montero Bacteria identified Cx Nom (U) INDICATED Normal [facility] Comment on above: Performed By: #### U ACSIND, UMICRO #### [facility] [address] [address] [address] Karina Montero CAST NONE SEEN Normal NONE SEEN [facility] Comment on above: Performed By: #### U ACSIND, UMICRO #### [facility] [address] [address] [address] Karina Montero Crystals LM Nom (Urine sed) SEEN Abnormal NONE SEEN [facility] Comment on above: Performed By: #### U ACSIND, UMICRO #### [facility] [address] [address] [address] Karina Montero Epithelial cells LM Ql (Urine sed) NONE SEEN Normal NONE SEEN /RARE [facility] Comment on above: Performed By: #### U ACSIND, UMICRO #### [facility] [address] [address] [address] Karina Montero MUCOUS LARGE Abnormal NONE SEEN [facility] Comment on above: Performed By: #### U ACSIND, UMICRO #### [facility] [address] [address] [address] Karina Montero RBC 5-10 Abnormal 0-2 [facility] Comment on above: Performed By: #### U ACSIND, UMICRO #### [facility] [address] [address] [address] Karina Montero TRIPLE PHOS CRYSTALS MODERATE Normal [facility] Comment on above: Performed By: #### U ACSIND, UMICRO #### [facility] [address] [address] [address] Karina Montero WBC 50-75 Abnormal NONE SEEN [facility] Comment on above: Performed By: #### U ACSIND, UMICRO #### [facility] [address] [address] [address] Karina Montero Progress Noteson 12-28-2021 [employer] Authentication Interface Message Text Ms Thomson's appointment [...] Specialist -- Clinic: [place] ----- Normal [facility] PSE Call H AND Stephen [employer] Authentication Interface Message Text Patient was identified by name and date of by [facility]. Sophy Dong RN Preop and medication instructions given to staff. Pt is vaccinated x2 for covid and will not need covid testing prior to dental surgery . Normal [facility] Telephone Encounteron 2021 [employer] Authentication Interface Message Text Pt does not need covid testing for surgery . Covid vaccine completed. 01/16/2021 and 03/03/2021 Normal [facility] Progress Noteson 11-03-2021 [employer] Authentication Interface Message Text ----- Wednesday, November 03, 2021 at 10:51:21 AM ----- ----- Provider: Destiny Winn, Resident -- Clinic: [place] ----- Due to the weather conditions the patient was unable to make the appointment at [place]. OR was cancelled. Normal [facility] Anesthesia Preprocedure Eval uationon 10-31-2021 [employer] Authentication Interface Message Text ASA: 3 PSE [...] abdominal abscess, and thus was sent to [facility] for further evaluation. Patient presented with low [...] EKG, imaging, and consults reviewed Normal [facility] PSE Appt H AND Stephen [employer] Authentication Interface Message Text Patient was identified by name and date of . Nati Carroll Bill of rights provided to patient Normal [facility] Patient Instructionson 10-27 [employer] Authentication Interface Message Text MEDICATIONS: Follow your [...] procedure. Contact the Pre-Surgical Evaluation department at [phone] or your surgeon's office with any additional [...] surgery. Contact the Pre-Surgical Evaluation department at [phone] or your surgeon's office with any questions. Normal [facility] Progress Noteson 09-14-2021 [employer] Authentication Interface Message Text Spoke to Ms. [...] any restorations needed will be completed. Ms. Thomson agreed to the OR visit on 11/02/21 (PSE 10/27/21 @ 1:00 pm) ----- Tuesday, September 14, 2021 at 11:18:34 AM ----- ----- Provider: Yisel Guevara Specialist -- Clinic: [place] ----- Normal [facility] Telephone Encounteron 2020 [employer] Authentication Interface Message Text Nathalia Justice MD ??? 12:08 PM Note Evelina and Tracy - can one of you please call [facility] and discontinue Bactrim and Rifampin? She does not need labs for monitoring anymore either. [facility] contacted at [phone] Orders relayed to Paola BAILEY Patient has f/u with Tracy Jacobsen APRN on 09/15/21 Evelina Durham APRN-ORGANISATIONAL PSYCHOLOGIST Normal [facility] [employer] Authentication Interface Message Text Sukhjinder - can one of you please call [facility] and discontinue Bactrim and Rifampin? She does not need labs for monitoring anymore either. Normal [facility] Telephone Encounteron 2020 [employer] Authentication Interface Message Text Forwarded to Dr Justice Normal [facility] Telephone Encounteron 2020 [employer] Authentication Interface Message Text Please advise Last seen by Tracy Jacobsen 04/28 Normal [facility] [employer] Authentication Interface Message Text From: Tyesha Alix To: Nathalia Justice MD Sent: 08/19/2021 4:42 PM EDT Subject: Visit Follow-Up Question Is it required for you to see me in person every month? Or can we do over the phone visits? It's just been a hassle for this facility to find a ride for me to get up there to [place]. Just mainly curious if you had anything to discuss with me in an email form. Thanks for taking the time to read this. -Tyesha Thomson Normal [facility] Progress Note - WOUND CENTER on 01-05-2021 Progress Note - WOUND CENTER NAME: TYESHA THOMSON MR#: [id number] DATE OF SERVICE: 01/05/2021 WOUND CARE PROGRESS [...] for followup is recommended. NAYELI HENDRICKS MD DFP/MODL/[id number] E/S: Nayeli Hendricks MD 01/08/21 1244 Signature on File [facility] PATIENT NAME: TYESHA THOMSON [address] [id number] UNIT #: [id number] : 86 DOS: 01/05/21 WOUND CLINIC PROGRESS NOTE ATTENDING PHY: Nayeli Hendricks MD [facility] Progress Note - WOUND CENTER on 12-15-2020 Progress Note - WOUND CENTER NAME: TYESHA THOMSON MR#: [id number] DATE OF SERVICE: 12/15/2020 WOUND CARE PROGRESS [...] debridement at this time. NAYELI HENDRICKS MD [facility]/[id number] E/S: Nayeli Hendricks MD 12/18/20 1257 Signature on File [facility] PATIENT NAME: TYESHA THOMSON [address] [address] UNIT #: [id number] : 86 DOS: 12/15/20 WOUND CLINIC PROGRESS NOTE ATTENDING PHY: Nayeli Hendricks MD [facility] Vital Signs Date Time Vital Sign Value Performing Clinician Facility 05-02-2025 11:56-0400 Diastolic blood pressure 70 mm[Hg] Pato Selfo DO Work Phone: [facility] 05-02-2025 11:56-0400 Systolic blood pressure 98 mm[Hg] Pato Lambert DO Work Phone: [facility] 04-04-2025 15:02-0400 Body height 165.1 cm Sharifa Bald Eagle WELL HEAD PU[employer]ER Work Phone: [facility] 04-04-2025 15:02-0400 Body mass index (BMI) [Ratio] 35.78 kg/m2 Sharifa Bald Eagle WELL HEAD PU[employer]ER Work Phone: [facility] 04-04-2025 15:02-0400 Body weight 97.52 kg Sharifa Bald Eagle WELL HEAD PU[employer]ER Work Phone: [facility] 04-04-2025 15:02-0400 Diastolic blood pressure 80 mm[Hg] Sharifa Moshe WELL HEAD PUMPER Work Phone: [facility] 04-04-2025 15:02-0400 Heart rate 108 /min Sharifa Bald Eagle WELL HEAD PUMPER Work Phone: [facility] 04-04-2025 15:02-0400 Respiratory rate 17 /min Sharifa Moshe WELL HEAD PUMPER Work Phone: [facility] 04-04-2025 15:02-0400 SaO2% (BldA) [Mass fraction] 94 % Sharifa Moshe WELL HEAD PUMPER Work Phone: [facility] 04-04-2025 15:02-0400 Systolic blood pressure 122 mm[Hg] Sharifa Bald Eagle WELL HEAD PUMPER Work Phone: [facility] 12-27-2024 14:36-0400 Body height 165.1 cm Sharifa Bald Eagle WELL HEAD PU[employer]ER Work Phone: [facility] 12-27-2024 14:36-0400 Body mass index (BMI) [Ratio] 35.78 kg/m2 Sharifa Moshe WELL HEAD PUMPER Work Phone: [facility] 12-27-2024 14:36-0400 Body weight 97.52 kg Sharifa Bald Eagle WELL HEAD PU[employer]ER Work Phone: [facility] 12-27-2024 14:36-0400 Diastolic blood pressure 74 mm[Hg] Sharifa Moshe WELL HEAD PUMPER Work Phone: [facility] 12-27-2024 14:36-0400 Heart rate 96 /min Sharifa Moshe WELL HEAD PUMPER Work Phone: [facility] 12-27-2024 14:36-0400 SaO2% (BldA) [Mass fraction] 97 % Sharifa Mesa WELL HEAD PUMPER Work Phone: [facility] 12-27-2024 14:36-0400 Systolic blood pressure 126 mm[Hg] Sharifa Mesa WELL HEAD PUMPER Work Phone: [facility] 10-18-2024 14:09-0500 Body height 165.1 cm Sharifa Mesa WELL HEAD PUMPER Work Phone: [facility] 10-18-2024 14:09-0500 Body mass index (BMI) [Ratio] 35.78 kg/m2 Sharifa Mesa WELL HEAD PU[employer]ER Work Phone: [facility] 10-18-2024 14:09-0500 Body weight 97.52 kg Sharifa Mesa WELL HEAD PUMPER Work Phone: [facility] 10-18-2024 14:09-0500 Diastolic blood pressure 78 mm[Hg] Sharifa Mesa WELL HEAD PUMPER Work Phone: [facility] 10-18-2024 14:09-0500 Heart rate 97 /min Sharifa Mesa WELL HEAD PUMPER Work Phone: [facility] 10-18-2024 14:09-0500 Respiratory rate 16 /min Sharifa Mesa WELL HEAD PUMPER Work Phone: [facility] 10-18-2024 14:09-0500 SaO2% (BldA) [Mass fraction] 97 % Sharifa Mesa WELL HEAD PUMPER Work Phone: [facility] 10-18-2024 14:09-0500 Systolic blood pressure 126 mm[Hg] Sharifa Mesa WELL HEAD PUMPER Work Phone: [facility] 08-16-2024 10:15-0400 Body temperature 98.8 [degF] Demetrius Khushboo DO Work Phone: [facility] 08-16-2024 10:15-0400 Diastolic blood pressure 74 mm[Hg] Demetrius Khushboo DO Work Phone: [facility] 08-16-2024 10:15-0400 Heart rate 97 /min Demetrius Khushboo DO Work Phone: [facility] 08-16-2024 10:15-0400 Respiratory rate 18 /min Demetrius Khushboo DO Work Phone: [facility] 08-16-2024 10:15-0400 SaO2% (BldA) [Mass fraction] 97 % Demetrius [place] DO Work Phone: [facility] 08-16-2024 10:15-0400 Systolic blood pressure 123 mm[Hg] Demetrius Khushboo DO Work Phone: [facility] 07-04-2024 11:02-0400 Body height 165.1 cm Sharifa Mesa WELL HEAD PUMPER Work Phone: [facility] 07-04-2024 11:02-0400 Body mass index (BMI) [Ratio] 33.61 kg/m2 Sharifa Mesa WELL HEAD PU[employer]ER Work Phone: [facility] 07-04-2024 11:02-0400 Body weight 91.63 kg Sharifa Mesa WELL HEAD PUMPER Work Phone: [facility] 07-04-2024 11:02-0400 Diastolic blood pressure 64 mm[Hg] Sharifa Mesa WELL HEAD PUMPER Work Phone: [facility] 07-04-2024 11:02-0400 Heart rate 127 /min Sharifa Mesa WELL HEAD PUMPER Work Phone: [facility] 07-04-2024 11:02-0400 SaO2% (BldA) [Mass fraction] 97 % Sharifa Mesa WELL HEAD PUMPER Work Phone: [facility] 07-04-2024 11:02-0400 Systolic blood pressure 124 mm[Hg] Sharifa Mesa WELL HEAD PUMPER Work Phone: [facility] Healthcare Encounters Encounter Date Encounter Type Care Provider Facility Start: 06-19-2025 End: 06-19-2025 Telephone encounter Singh Morse MD Work Phone: [facility] Start: 06-18-2025 End: 06-18-2025 Refanabelle Loo PA Work Phone: [facility] Comment on above: Panic attacks ; Other chronic pain Start: 05-20-2025 End: 05-20-2025 Refill Mely Loo PA Work Phone: [facility] Comment on above: Panic attacks Start: 05-02-2025 End: 05-02-2025 ambulatory PATODawit SELFO Not Available Start: 05-02-2025 End: 05-02-2025 Patient encounter procedure Pato Selfo DO Work Phone: [facility] Comment on above: Encounter for IUD re moval; Depressive disorder due to another medical condition with depressive features Start: 04-18-2025 End: 04-18-2025 Refill Mely Loo PA Work Phone: [facility] Comment on above: Other chronic pain Start: 04-15-2025 End: 04-15-2025 Refill Sharifa Mesa WELL HEAD PU[employer]ER Work Phone: [facility] Comment on above: Panic attacks Start: 04-04-2025 End: 04-04-2025 Office outpatient visit 25 minutes Sharifa Mesa WELL HEAD PU[employer]ER Work Phone: [facility] Comment on above: Dysuria (Primary Dx) ; Anxiety and depression ; Panic attacks Start: 04-04-2025 End: 04-04-2025 ambulatory SHARIFA MESA Not Available Start: 04-04-2025 End: 04-04-2025 Bamboo flowsheet Sharifa Mesa WELL HEAD PUMPER Work Phone: [facility] Start: 04-04-2025 End: 04-04-2025 Bamboo flowsheet Sharifa Mesa WELL HEAD PUMPER Work Phone: [facility] Start: 04-03-2025 End: 04-03-2025 ambulatory Sreekanth Dey Facility:[facility] Start: 03-21-2025 End: 03-21-2025 Refill Singh Morse MD Work Phone: [facility] Comment on above: Panic attacks (CMS/H CC); Other chronic pain Start: 02-21-2025 End: 02-22-2025 Refill Sharifa Mesa NP Work Phone: [facility] Comment on above: Panic attacks (CMS/H CC); Other chronic pain Start: 01-25-2025 End: 01-25-2025 ambulatory Rachael L Naidu PT Work Phone: [facility] Comment on above: Paraplegia (Primary Dx); Spinal cord injury at T8 level, initial encounter (CMS/HCC); Chronic pain syndrome Start: 01-25-2025 End: 01-25-2025 Bamboo flowsheet Rachael L Naidu PT Work Phone: [facility] PT Start: 01-25-2025 End: 01-25-2025 Bamboo flowsheet Rachael L Naidu PT Work Phone: [facility] PT Start: 01-24-2025 End: 01-24-2025 Refill Sharifa Mesa WELL HEAD PUMPER Work Phone: [facility] Comment on above: Panic attacks (CMS/H CC); Other chronic pain Start: 12-27-2024 End: 12-27-2024 Office outpatient visit 25 minutes Sharifa Mesa WELL HEAD PUMPER Work Phone: [facility] Comment on above: Nausea and vomiting, unspecified vomiting type (Primary Dx); Morbid (severe) obesity due to excess calories (CMS/HCC); Pure hypercholesterolemia, unspecified (CMS/HCC); Body mass index (BMI) 35.0-35.9, adult; Pressure ulcer of unspecified part of back, stage 4 (CMS/HCC); 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 (CMS/HCC); Paraplegia (CMS/HCC); Non-pressure chronic ulcer of right lower leg, unspecified ulcer stage (CMS/HCC) Start: 12-27-2024 End: 12-27-2024 Refill Sharifa Mesa WELL HEAD PUMPER Work Phone: [facility] Comment on above: Panic attacks (CMS/H CC); Other chronic pain Start: 12-12-2024 End: 12-12-2024 ambulatory PATO PETRA Not Available Start: 12-12-2024 End: 12-12-2024 Office outpatient visit 15 minutes Pato Petra DO Work Phone: [facility] Comment on above: 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); Breakthrough bleeding associated with intrauterine device (IUD) Start: 12-12-2024 End: 12-12-2024 Bamboo flowsheet Pato Petra DO Work Phone: [facility] Start: 12-12-2024 End: 12-12-2024 Bamboo flowsheet Pato Petra DO Work Phone: [facility] Start: 12-07-2024 End: 12-07-2024 ambulatory [facility] Facility:[facility] Start: 11-29-2024 End: 11-29-2024 Refill Sharifa Mesa WELL HEAD PUMPER Work Phone: [facility] Comment on above: Panic attacks (CMS/H CC) Other chronic pain Start: 11-09-2024 End: 11-09-2024 ambulatory [facility] Facility:[facility] Start: 11-01-2024 End: 11-01-2024 Refill Sharifa Mesa WELL HEAD PU[employer]ER Work Phone: [facility] Comment on above: Other chronic pain Start: 10-18-2024 End: 10-18-2024 Office outpatient visit 25 minutes Sharifa Mesa WELL HEAD PUMPER Work Phone: [facility] Comment on above: Nausea (Primary Dx); Other chronic pain; Panic attacks (CMS/HCC) Start: 10-18-2024 End: 10-18-2024 ambulatory SHARIFA MESA Not Available Start: 10-03-2024 End: 10-04-2024 Refill Mely Loo PA Work Phone: [facility] Comment on above: Other chronic pain Start: 08-20-2024 End: 08-20-2024 Refill Mely Loo PA Work Phone: [facility] Comment on above: Other chronic pain Start: 08-12-2024 End: 08-16-2024 Evaluation and management of inpatient Demetrius A Khushboo DO Work Phone: [facility] Comment on above: Vesicovaginal fistul a (Primary Dx); in EMS 08/12/24 M Apg Wt 4#15 Start: 08-12-2024 End: 08-12-2024 ambulatory DO Singh Schroeder Work Phone: [facility] Work Phone: Start: 08-12-2024 End: 08-12-2024 Departed Referred DO Singh Schroeder Work Phone: [facility] Start: 08-09-2024 End: 08-15-2024 Telephone encounter Salima Abrams RN Maternal Medicine Start: 08-07-2024 End: 08-07-2024 Telephone encounter Salima Abrams RN Maternal Medicine Start: 08-02-2024 End: 08-02-2024 Clinisync Result Encounter Generic External Data Provider [facility] External Department Unsolicited Start: 08-02-2024 End: 08-02-2024 Clinisync Result Encounter Generic External Data Provider [facility] External Department Unsolicited Start: 08-02-2024 End: 08-02-2024 ambulatory THA AGUILAR Facility:[place] Start: 08-02-2024 End: 08-02-2024 Patient encounter procedure Whi Tech 2 Mobility Architect Manager [facility] Main R Maternal Medicine Comment on above: Urethrovaginal fistu la (Primary Dx); Neurogenic bladder; Spinal cord injury at T8 level, sequela (HCC); Infection of urinary tract in in third trimester; 35 weeks gestation of Start: 08-01-2024 End: 08-06-2024 Evaluation and management of inpatient AHMED AHMED Facility:[place] Start: 08-01-2024 End: 08-01-2024 Clinisync Result Encounter Generic External Data Provider [facility] External Department Unsolicited Start: 08-01-2024 End: 08-01-2024 Clinisync Result Encounter Generic External Data Provider [facility] External Department Unsolicited Start: 08-01-2024 End: 08-01-2024 Telephone encounter Salima Abrams RN Maternal Medicine Start: 08-01-2024 End: 08-01-2024 Evaluation and management of inpatient ARTIE ALVA Facility:[place] Start: 07-31-2024 End: 07-31-2024 ambulatory Sreekanth Dey Facility:[facility] Start: 07-27-2024 End: 07-27-2024 Refill Mely SARMIENTO Work Phone: [facility] Comment on above: Mild anxiety Start: 07-27-2024 End: 07-27-2024 ambulatory RON RUIZ Facility:[place] Start: 07-27-2024 End: 07-27-2024 Patient encounter procedure [...] Telephone encounter Ron Ruiz MD Work Phone: [facility] Start: 07-11-2024 End: 07-11-2024 ambulatory [facility] Work Phone: [facility]aternal Medicine Start: 07-11-2024 End: 07-11-2024 E-mail encounter from caregiver [facility] Work Phone: [facility]aternal Medicine Start: 07-11-2024 End: 07-11-2024 Telephone encounter [facility] Work Phone: Maternal Medicine Comment on above: Appointment Start: 07-09-2024 End: 07-10-2024 Transcribe Orders Sharifa Mesa Work Phone: [facility] Physician Referral Service Start: 07-05-2024 Non-patient / Non-visit DO Joaquín Schroeder Work Phone: [facility] Work Phone: Start: 07-04-2024 End: 07-06-2024 Clinisync Result Encounter Generic External Data Provider [facility] External Department Unsolicited Start: 07-04-2024 End: 07-06-2024 Clinisync Result Encounter Generic External Data Provider [facility] External Department Unsolicited Start: 07-04-2024 End: 07-09-2024 Telephone encounter Singh Morse MD Work Phone: [facility] Start: 07-04-2024 End: 07-04-2024 Office outpatient visit 25 minutes Sharifa Mesa NP Work Phone: [facility] Comment on above: Acute midline low ba ck pain without sciatica (Primary Dx); Urinary tract infection without hematuria, site unspecified; Bowel trouble; Generalized abdominal pain; 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) Start: 07-04-2024 End: 07-04-2024 ambulatory SHARIFA MESA Not Available Start: 06-15-2024 End: 06-29-2024 Refill Sharifa Mesa WELL HEAD [employer]ER Work Phone: [facility] Comment on above: Other chronic pain Start: 06-14-2024 End: 06-15-2024 Refill Arielle Holguin MA [facility] Comment on above: Other chronic pain Start: 01-01-2024 Letter encounter [facility] Work Phone: Start: 11-24-2023 Chart abstracting Sharifa miller WELL HEAD PUMPER Work Phone: [facility] Start: 05-18-2023 End: 05-19-2023 ambulatory Rach Ledbetter Facility:[facility] Start: 05-18-2023 End: 05-18-2023 Patient encounter procedure Rach Ledbetter [facility] Start: 04-12-2023 End: 04-13-2023 ambulatory MENDOZA GIPSON Facility:[facility] Start: 04-12-2023 End: 04-12-2023 Patient encounter procedure ALICE GIPSON [facility] Start: 02-16-2023 ambulatory Sandeep JESSICA Facility :[facility] Start: 12-28-2022 Letter encounter Dalton alvarez MD Work Phone: [facility] Start: 12-06-2022 ambulatory Sandeep LOPEZ Facili ty:[facility] Start: 09-02-2022 End: 09-03-[address] MELY LOO Facility: Start: 01-01-2022 End: 01-01-2022 ambulatory SHARIFA MESA Facility:[facility] Start: 12-17-2021 ambulatory UNKNOWN PROVIDER Facili ty:[facility] Start: 11-27-2021 ambulatory KLAUDIA AL MASHNI Facilit y:[facility] Start: 11-02-2021 ambulatory UNKNOWN PROVIDER Facili ty:[facility] Start: 10-27-2021 ambulatory UNKNOWN PROVIDER Facili ty:[facility] Start: 09-23-2021 ambulatory KLAUDIA AL MASHNI Facilit y:[facility] Procedures Date Procedure Procedure Detail Performing Clinician Start: 04-04-2025 Urnls dip stick/tabl et rgnt non-auto w/o micrscp Sharifa Mesa WELL HEAD PUMPER Work Phone: Start: 08-13-2024 WOUND OSTOMY EVAL AN D TREAT Yokasta Mullins MD Work Phone: Start: 08-13-2024 Blood count complete auto&auto difrntl wbc Dottie Quintero DO Work Phone: Start: 08-13-2024 Culture bacterial quanttative colony count urine Dottie Quintero DO Work Phone: Start: 08-13-2024 Drug tst prsmv instr mnt chem analyzers pr date Dottie Quintero DO Work Phone: Start: 08-12-2024 BLOOD BANK SPECIMEN Kirstin tt A [place] DO Work Phone: Start: 08-12-2024 Blood typing serologic abo Dottie Quintero DO Work Phone: Start: 08-12-2024 T. PALLIDUM AB Dottie Yossi lertrenton DO Work Phone: Start: 08-12-2024 Blood count complete auto&auto difrntl wbc Dottie Quintero DO Work Phone: Start: 08-02-2024 Us preg uterus after 1st trimest 10/17 gestation Salima Abrams RN Start: 08-02-2024 [facility] URINALYSIS COMPL ETE PNL UR Generic External Data Provider Start: 08-01-2024 Antibody screen RON RUIZ Comment on above: Order Comment: Speci men Type: BLOOD SPECIMENOrdering Facility: [facility] Address: [address] [place] [address] Performed By: #### T SPN ####CC MAIN BLOOD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 Comments 07/05/2024 1:14 AM 07/09/2024 8:54 PM Reason for Referral Specialty Diagnoses / Procedures Referred By Contac t Referred To Contact Urology Diagnoses Vesicovaginal fistula Dottie Quintero DO [address] [place] [address] Carlos Enriquez MD [address] [place] [address] Referral ID Status Reason Start Date Expiration Date V isits Requested Visits Authorized [id number] Open Specialty Services Required 08/14/2024 02/10/2025 1 1 Scheduling Instructions [facility] [place] Urology Question Answer Reason For External Referral? [facility] ([facility]) Comments The patient can be scheduled with any member of the group, including the provider with the first available appointments. Specialty Diagnoses / Procedures Referred By Contac t Referred To Contact Neurosurgery Diagnoses Acute midline low back pain without sciatica Sharifa Mesa [address] [place] [address] Alice Mcnamara APRN-ORGANISATIONAL PSYCHOLOGIST [address] [place] [address] Referral ID Status Reason Start Date Expiration Date V isits Requested Visits Authorized [id number] Authorized 07/09/2024 07/09/2025 3 3 Scheduling Instructions Please call the Department of Neurosurgery at to schedule an appointment if one was not made for you today. If imaging was done outside of [facility], please ensure that you have copies of those images available at your appointment. Question Answer Reasons for referral Other [19] - Acute midline low back pain without sciatica Has the patient had any relevant imaging completed? Not Available Additional Source Comments INFORMATION SOURCE (unrecogn ized section and content) DATE CREATED AUTHOR 11/29/2021 [facility] DATE CREATED AUTHOR AUTHOR'S ORGANIZ ATION 06/12/2022 [facility] DATE CREATED AUTHOR AUTHOR'S ORGANIZ ATION 09/06/2022 [facility] DATE CREATED AUTHOR AUTHOR'S ORGANIZ ATION 05/19/2023 [facility] DATE CREATED AUTHOR AUTHOR'S ORGANIZ ATION 07/17/2024 [facility] DATE CREATED AUTHOR AUTHOR'S ORGANIZ ATION 08/16/2024 [facility] DATE CREATED AUTHOR AUTHOR'S ORGANIZ ATION 08/19/2024 [facility] DATE CREATED AUTHOR AUTHOR'S ORGANIZ ATION 08/21/2024 [facility] DATE CREATED AUTHOR AUTHOR'S ORGANIZ ATION 04/05/2025 [facility] DATE CREATED AUTHOR AUTHOR'S ORGANIZ ATION 05/06/2025 [facility] dical Specialists EPIC Care Teams (unrecognized sec tion and content) Keg Raiser Relationship Specialty Start Date End Date Dalton Saez MD [address] [place] [address] Physician Orthopaedic Surgery 07/22/20 Nathalia Justice MD [address] [place] [address] Physician Infectious Diseases 07/22/20 Tracy Jacobsen, YARELIS-ORGANISATIONAL PSYCHOLOGIST [address] [place] [address] PHYSICS INSTRUCTOR Infectious Diseases 03/20/21 Evelina Durham APRN-ORGANISATIONAL PSYCHOLOGIST [address] [facility] [address] PHYSICS INSTRUCTOR Infectious Diseases 05/22/21 Keg Raiser Relationship Specialty Start Date End Date Singh Morse MD [address] [facility] [address] [place] [address] PCP - S [facility] 01/15/23 Singh Morse MD [address] [facility] [address] [place] [address] PCP - General Internal Medicine 04/06/23 Keg Raiser Relationship Specialty Start Date End Date Dalton Saez MD [address] [place] [address] Physician Orthopaedic Surgery 07/22/20 Nathalia Justice MD [address] [place] [address] Physician Infectious Diseases 07/22/20 Tracy Jacobsen APRN-ORGANISATIONAL PSYCHOLOGIST [address] [place] [address] PHYSICS INSTRUCTOR Infectious Diseases 03/20/21 Evelina Durham EDITORIAL MANAGER-ORGANISATIONAL PSYCHOLOGIST [address] [facility] [place] [address] PHYSICS INSTRUCTOR Infectious Diseases 05/22/21 Keg Raiser Relationship Specialty Start Date End Date Alice Rojas DO PCP - General Family Medicine 09/21/16 Keg Raiser Relationship Specialty Start Date End Date Alice Rojas DO PCP - General Family Medicine 09/21/16 Keg Raiser Relationship Specialty Start Date End Date Alice Rojas DO PCP - General Family Medicine 09/21/16 Keg Raiser Relationship Specialty Start Date End Date JoseagustinAlice PCP - General Family Medicine 09/21/16 Keg Raiser Relationship Specialty Start Date End Date JoseagustinJackieAlice SweetieDO jaja PCP - General Family Medicine 09/21/16 Salima Abrams, workforce management consultantAutomation Clerk Maternal Medicine 07/20/24 08/31/24 Keg Raiser Relationship Specialty Start Date End Date Joseagustin Alice Sweetie PCP - General Family Medicine 09/21/16 Salima Abrams, workforce management consultantAutomation Clerk Maternal Medicine 07/20/24 08/31/24 Keg Raiser Relationship Specialty Start Date End Date Alice Rojas DO PCP - General Family Medicine 09/21/16 Salima Abrams, workforce management consultantAutomation Clerk Maternal Medicine 07/20/24 08/31/24 Keg Raiser Relationship Specialty Start Date End Date Singh Morse MD [address] [facility] [address] [place] [address] PCP - General Internal Medicine 04/06/23 Pato Lambert DO [address] [place] [address] [place] [address] PCP - [facility] 04/16/24Tuesday, Elisa, HAND PLEATER [address] [place] [address] Licensed Practical Nurse Family Medicine 07/04/24 Keg Raiser Relationship Specialty Start Date End Date Alice Rojas DO PCP - General Family Medicine 09/21/16 Salima Abrams, workforce management consultantAutomation Clerk Maternal Medicine 07/20/24 08/31/24 Keg Raiser Relationship Specialty Start Date End Date Singh Morse MD [address] [place] [address] [place] [address] PCP - General Internal Medicine 04/06/23 Pato Lambert DO [address] [place] [address] [address] [place], [place] [id number] PCP - [facility] 04/16/24Tuesday, Elisa, HAND PLEATER [address] [place] [address] Licensed Practical Nurse Family Medicine 07/04/24 Keg Raiser Relationship Specialty Start Date End Date Alice Rojas DO PCP - General Family Medicine 09/21/16 Salima Abrams, workforce management consultantAutomation Clerk Maternal Medicine 07/20/24 08/31/24 Keg Raiser Relationship Specialty Start Date End Date Alice Rojas DO PCP - General Family Medicine 09/21/16 Salima Abrams, workforce management consultantAutomation Clerk Maternal Medicine 07/20/24 08/31/24 Team Status: Active Member Role Status Dates Singh Schroeder , Primary Care Provider Active Team Status: Active Member Role Status Dates Singh Schroeder DO Primary Care Provider Active Start: July 05, 2024 Sandoval Garcia DO Attending Provider Active Sta rt: July 05, 2024 Team Status: Inactive Member Role Status Dates Singh Schroeder DO Primary Care Provider Active Start: August 12, 2024 End: August 12, 2024 Pato Lambert DO Attending Provider Active Start : August 12, 2024 End: August 12, 2024 Keg Raiser Relationship Specialty Start Date End Date DevynparkerAlice velez PCP - General Family Medicine 09/21/16 Salima Abrams, workforce management consultantAutomation Clerk Maternal Medicine 07/20/24 08/31/24 Keg Raiser Relationship Specialty Start Date End Date Jackie Rojasjavi PCP - General 06/09/16 Keg Raiser Relationship Specialty Start Date End Date Singh Morse MD [address] [place] [address] [place] [address] PCP - General Internal Medicine 04/06/23 Pato Lambert DO [address] [place] [address] PCP - [facility] 04/16/24Tuesday, Elisa, LEO [address] [place] [address] Licensed Practical Nurse Family Medicine 07/04/24 Keg Raiser Relationship Specialty Start Date End Date Singh Morse MD [address] [place] [address] [place] [address] PCP - General Internal Medicine 04/06/23 Pato Lambert DO [address] [place], [place] [id number] PCP - [facility] 04/16/24 Keg Raiser Relationship Specialty Start Date End Date Singh Morse MD [address] [place] [address] [place] [address] PCP - General Internal Medicine 04/06/23 Pato Lambert, [address] [place], [place] [address]du[address] [place] [address] PCP - [facility] 04/16/24 Keg Raiser Relationship Specialty Start Date End Date Singh Morse MD [address] [place] [address] [place] [address] PCP - General Internal Medicine 04/06/23 Pato Lambert, [address] [place], [place] [address]du[address] [place] [address] PCP - [facility] 04/16/24 Keg Raiser Relationship Specialty Start Date End Date Singh Morse MD [address] [place] [address] [place] [address] PCP - General Internal Medicine 04/06/23 Pato Lambert, [address] [place], [place] [address]du[address] [place] [address] PCP - [facility] 04/16/24TueNas, LEO Pérez [address] [place] [address] Licensed Practical Nurse Family Medicine 07/04/24 Keg Raiser Relationship Specialty Start Date End Date Singh Morse MD [address] [place] [address] [place] [address] PCP - General Internal Medicine 04/06/23 Pato Lambert, DO [address] [place] [address] PCP - [facility] 04/16/24Tuesday, Elisa, HAND PLEATER [address] [place] [address] Licensed Practical Nurse Family Medicine 07/04/24 Keg Raiser Relationship Specialty Start Date End Date Singh Morse MD [address] [facility] [address] [place] [address] PCP - General Internal Medicine 04/06/23 Pato Lambert, DO [address] [place] [address] PCP - [facility] 04/16/24Tuesday, Elisa, HAND PLEATER [address] [place] [address] Licensed Practical Nurse Family Medicine 07/04/24 Keg Raiser Relationship Specialty Start Date End Date Singh Morse MD [address] [place] [address] [place] [address] PCP - General Internal Medicine 04/06/23 Pato Lambert, DO [address] [place] [address] PCP - [facility] 04/16/24Tuesday, Elisa, HAND PLEATER [address] [place] [address] Licensed Practical Nurse Family Medicine 07/04/24 Keg Raiser Relationship Specialty Start Date End Date Singh Morse MD [address] [place] [address] [place] [address] PCP - General Internal Medicine 04/06/23 Pato Lambert, [address] [place] [address] PCP - [facility] 04/16/24Tuesday, Elisa, HAND PLEATER [address] [place] [address] Licensed Practical Nurse Family Medicine 07/04/24 Diamond Alvarenga LSW Chronometer Assembler And Adjuster [facility] Medicine 10/30/24 Keg Raiser Relationship Specialty Start Date End Date Singh Morse MD [address] [facility] [address] [place] [address] PCP - General Internal Medicine 04/06/23 Pato Lambert, [facility] [place] [address] PCP [facility] 04/16/24Tuesday, Elisa, HAND PLEATER [address] [place] [address] Licensed Practical Nurse Family Medicine 07/04/24 Diamond Alvarenga [facility] Chronometer Assembler And Adjuster [facility] Medicine 10/30/24 Keg Raiser Relationship Specialty Start Date End Date Singh Morse MD [address] [place] [address] [place] [address] PCP - General Internal Medicine 04/06/23 Sharifa Mesa, WELL HEAD PUMPER [address] [place] [address] [place] [address] PCP - [facility] 10/17/24 LyleDiamond sexton, [facility] Chronometer Assembler And Adjuster Family Medicine 10/30/24 Keg Raiser Relationship Specialty Start Date End Date Singh Morse MD [address] [place] [address] [place] [address] PCP - General Internal Medicine 04/06/23 Sharifa Mesa, WELL HEAD PUMPER [address] [place] [address] [place] [address] PCP [facility] 10/17/24 Lyle, Diamond, [facility] Chronometer Assembler And Adjuster Family Medicine 10/30/24 Keg Raiser Relationship Specialty Start Date End Date Singh Morse MD [address] [place] [address] [place] [address] PCP - General Internal Medicine 04/06/23 Sharifa Mesa, WELL HEAD PUMPER [address] [place] [address] [place] [address] PCP [facility] 10/17/24 Lyle Diamond, [facility] Chronometer Assembler And Adjuster Family Medicine 10/30/24 Keg Raiser Relationship Specialty Start Date End Date Singh Morse MD [address] [place] [address] [place] [address] PCP - General Internal Medicine 04/06/23 Sharifa Mesa, WELL HEAD PUMPER [address] [place] [address] [place] [address] PCP [facility] 10/17/24 Lyle Diamond, [facility] Chronometer Assembler And Adjuster Family Medicine 10/30/24 Keg Raiser Relationship Specialty Start Date End Date Singh Morse MD [address] [place] [address] [place] [address] PCP - General Internal Medicine 04/06/23 Sharifa Mesa, DEANDRE [address] [place] [address] [place] [address] PCP - [facility] 10/17/24 Diamond Alvarenga, [facility] Chronometer Assembler And Adjuster Family Medicine 10/30/24 Keg Raiser Relationship Specialty Start Date End Date Singh Morse MD [address] [place] [address] [place] [address] PCP - [facility] Internal [facility] 04/06/23 Sharifa Mesa, WELL HEAD PUMPER [address] [place] [address] [place] [address] PCP - [facility] 10/17/24 Diamond Alvarenga, [facility] Chronometer Assembler And Adjuster [facility] Medicine 10/30/24 Keg Raiser Relationship Specialty Start Date End Date Singh Morse MD [address] [place] [address] [place] [address] PCP - General Internal Medicine 04/06/23 Sharifa Mesa, WELL HEAD PUMPER [address] [place] [address] [place] [address] PCP [facility] 10/17/24 Diamond Alvarenga, [facility] Chronometer Assembler And Adjuster Family [facility] 10/30/24 Keg Raiser Relationship Specialty Start Date End Date Singh Morse MD [address] [place] [address] [place] [address] PCP - General Internal Medicine 04/06/23 Sharifa Mesa, WELL HEAD PUMPER [address] [place] [address] [place] [address] PCP - [facility] 10/17/24 Diamond Alvarenga LSW Chronometer Assembler And Adjuster Family Medicine 10/30/24 Keg Raiser Relationship Specialty Start Date End Date Singh Morse MD [address] [place] [address] [place] [address] PCP - General Internal Medicine 04/06/23 Sharifa Mesa, WELL HEAD PUMPER [address] [place] [address] [place] [address] PCP - [facility] 10/17/24 Diamond Alvarenga LSW Chronometer Assembler And Adjuster Family Medicine 10/30/24 Keg Raiser Relationship Specialty Start Date End Date Singh Morse MD [address] [place] [address] [place] [address] PCP - General Internal Medicine 04/06/23 Sharifa Mesa, WELL HEAD PUMPER [address] [place] [address] [place] [address] PCP - [facility] 10/17/24 Diamond Alvarenga LSW Chronometer Assembler And Adjuster Family Medicine 10/30/24 Keg Raiser Relationship Specialty Start Date End Date Singh Morse MD [address] [place] [address] [place] [address] PCP - General Internal Medicine 04/06/23 Sharifa Mesa, WELL HEAD PUMPER [address] [place] [address] [place] [address] PCP - [facility] 10/17/24 Diamond Alvarenga, CHANNEL OPENER [address] [place] [address] Chronometer Assembler And Adjuster Family [facility] 10/30/24 Keg Raiser Relationship Specialty Start Date End Date Singh Morse MD [address] [place] [address] [place] [address] PCP - General Internal Medicine 04/06/23 Sharifa Mesa, WELL HEAD PUMPER [address] [place] [address] [place] [address] PCP [facility] 10/17/24 Diamond Alvarenga, CHANNEL OPENER [address] [facility] [place] [address] Chronometer Assembler And Adjuster [facility] 10/30/24 Keg Raiser Relationship Specialty Start Date End Date Singh Morse MD [address] [place] [address] [place] [address] PCP - General Internal Medicine 04/06/23 Sharifa Mesa, WELL HEAD PUMPER [address] [place] [address] [place] [address] [facility] 10/17/24 Diamond Alvarenga, CHANNEL OPENER [address] [place] [place] [address] Chronometer Assembler And Adjuster [facility] 10/30/24 Keg Raiser Relationship Specialty Start Date End Date Singh Morse MD [address] [place] [address] [place] [address] PCP - General Internal Medicine 04/06/23 Sharifa Mesa, WELL HEAD PUMPER [address] [place] [address] [place] [address] PCP [facility] 10/17/24 Diamond Alvarenga, CHANNEL OPENER [address] [place] [facility] [address] Chronometer Assembler And Adjuster Family Medicine 10/30/24 Keg Raiser Relationship Specialty Start Date End Date Singh Morse MD [address] [place] [address] [place] [address] PCP - General Internal Medicine 04/06/23 Sharifa Mesa, WELL HEAD PUMPER [address] [place] [address] [place] [address] PCP - [facility] 10/17/24 Devyn Alvarengaison, CHANNEL OPENER [address] [place] [address] Chronometer Assembler And Adjuster Family Medicine 10/30/24 Keg Raiser Relationship Specialty Start Date End Date Singh Morse MD [address] [place] [address] [place] [address] PCP - General Internal Medicine 04/06/23 Sharifa Mesa, WELL HEAD PUMPER [address] [place] [address] [place] [address] PCP - [facility] 10/17/24 Lyle Diamond, CHANNEL OPENER [address] [place] [address] Chronometer Assembler And Adjuster Family Medicine 10/30/24 Keg Raiser Relationship Specialty Start Date End Date Singh Morse MD [address] [place] [address] [place] [address] PCP - General Internal Medicine 04/06/23 Sharifa Mesa, WELL HEAD PUMPER [address] [place] [address] [place] [address] PCP - [facility] 10/17/24 Diamond Alvarenga, CHANNEL OPENER [address] [place] [address] Chronometer Assembler And Adjuster Family Medicine 10/30/24 Keg Raiser Relationship Specialty Start Date End Date Singh Morse MD [address] [place] [address] [place] [address] PCP - General Internal Medicine 04/06/23 Sharifa Mesa NP [address] [facility] [address] [place] [address] PCP - [facility] 10/17/24 Lyle Diamond, CHANNEL OPENER [address] [place], [place] [id number] Chronometer Assembler And Adjuster Family Medicine 10/30/24 Source Comments (unrecognize d section and content) In the event this informatio n is protected by the Federal Confidentiality of Alcohol and Drug Abuse Patient Records regulations: The Federal rules restrict any use of the information to criminally investigate or prosecute any alcohol or drug abuse patient.[facility] the event this information is protected by the Federal Confidentiality of Alcohol and Drug Abuse Patient Records regulations: The Federal rules restrict any use of the information to criminally investigate or prosecute any alcohol or drug abuse patient.[facility] the event this information is protected by the Federal Confidentiality of Alcohol and Drug Abuse Patient Records regulations: The Federal rules restrict any use of the information to criminally investigate or prosecute any alcohol or drug abuse patient.[facility] the event this information is protected by the Federal Confidentiality of Alcohol and Drug Abuse Patient Records regulations: The Federal rules restrict any use of the information to criminally investigate or prosecute any alcohol or drug abuse patient.[facility] the event this information is protected by the Federal Confidentiality of Alcohol and Drug Abuse Patient Records regulations: The Federal rules restrict any use of the information to criminally investigate or prosecute any alcohol or drug abuse patient.[facility] the event this information is protected by the Federal Confidentiality of Alcohol and Drug Abuse Patient Records regulations: The Federal rules restrict any use of the information to criminally investigate or prosecute any alcohol or drug abuse patient.[facility] the event this information is protected by the Federal Confidentiality of Alcohol and Drug Abuse Patient Records regulations: The Federal rules restrict any use of the information to criminally investigate or prosecute any alcohol or drug abuse patient.[facility] the event this information is protected by the Federal Confidentiality of Alcohol and Drug Abuse Patient Records regulations: The Federal rules restrict any use of the information to criminally investigate or prosecute any alcohol or drug abuse patient.[facility] the event this information is protected by the Federal Confidentiality of Alcohol and Drug Abuse Patient Records regulations: The Federal rules restrict any use of the information to criminally investigate or prosecute any alcohol or drug abuse patient.[facility] the event this information is protected by the Federal Confidentiality of Alcohol and Drug Abuse Patient Records regulations: The Federal rules restrict any use of the information to criminally investigate or prosecute any alcohol or drug abuse patient.[facility] the event this information is protected by the Federal Confidentiality of Alcohol and Drug Abuse Patient Records regulations: The Federal rules restrict any use of the information to criminally investigate or prosecute any alcohol or drug abuse patient.[facility] the event this information is protected by the Federal Confidentiality of Alcohol and Drug Abuse Patient Records regulations: The Federal rules restrict any use of the information to criminally investigate or prosecute any alcohol or drug abuse patient.[facility] Reason for Visit (unrecogniz ed section and content) Reason Comments Appointment Reason Comments Consult Reason Comments Med Refill Reason Comments US Specialty Diagnoses / Procedures Referred By Contac t Referred To Contact [facility] Diagnoses Neurogenic bladder Spinal cord injury at T8 level, sequela (HCC) Procedures OBSTETRIC ULTRASOUND WHI US PREG UTERUS AFTER [address] [place] [id number] [place] [address] [facility] [address] [place] [address] Referral ID Status Reason Start Date Expiration Date V isits Requested Visits Authorized [id number] Closed Auto-Generate d Referral 07/10/2024 07/10/2025 1 1 Specialty Diagnoses / Procedures Referred By Contac t Referred To Contact Diagnoses Vagina bleeding Vaginal Bleeding out fo hospital delivery parallyzed from waist down [place], Demetrius A, DO [address] [place] [address] [facility] [address] [place] [address] Referral ID Status Reason Start Date Expiration Date Visits Re quested Visits Authorized [id number] 1 Reason Onset Date Comments Med Refill 08/20/2024 Reason Onset Date Comments Med Refill 06/15/2024 Reason Comments UTI Hernia Reason Onset Date Comments Med Refill 06/14/2024 Reason Onset Date Comments Med Refill 10/03/2024 Reason Onset Date Comments Med Refill 11/01/2024 Reason Onset Date Comments Med Refill 11/29/2024 Reason Comments Discuss PP Depression Reason Onset Date Comments Med Refill 12/27/2024 Reason Comments FACE TO FACE FOR WHEELCHAIR Pt is going through [employer] wheelchair Med Refill Xanax,roxicodone--cv rosalia wiseman discuss changing nausea med Pt was on Zo marisol ODT 8mg in past and felt it worked well for her Referral Pt would like to loo k into water therapy discuss weight loss options Pt wondering if ozempic would be an option to use Reason Onset Date Comments Med Refill 01/24/2025 Reason Onset Date Comments Med Refill 02/21/2025 Reason Onset Date Comments Med Refill 03/21/2025 Reason Onset Date Comments Med Refill 04/15/2025 Reason Onset Date Comments Med Refill 04/18/2025 Reason Comments Mirena Removal Reason Onset Date Comments Med Refill 05/20/2025 Reason Onset Date Comments Med Refill 06/18/2025 Goals (unrecognized section and content) Goals may be documented in a n alternate section Ordered Prescriptions (unrec ognized section and content) Prescription Sig Dispensed Refills Start Date End Da te oxyCODONE (ROXICODONE) 5 MG immediate release tabletIndications: (spontaneous vaginal delivery) Take 1 tablet by mouth every 6 hours as needed for Pain for up to 3 days. Intended supply: 3 days. Take lowest dose possible to manage pain Max Daily Amount: 20 mg 12 tablet 08/14/2024 08/17/2024 traZODone (DESYREL) 50 MG tablet Take 1 tablet by mouth nightly as needed for Sleep 30 tablet 1 08/14/2024 rOPINIRole (REQUIP) 2 MG tablet Take 1.5 tablets by mouth nightly 90 tablet 3 08/14/2024 oxyBUTYnin (DITROPAN XL) 5 MG extended release tablet Take 1 tablet by mouth in the morning, at noon, in the evening, and at bedtime 30 tablet 1 08/14/2024 gabapentin (NEURONTIN) 300 MG capsule Take 3 capsules by mouth 4 times daily for 30 days. Intended supply: 30 days 360 capsule 08/14/2024 09/13/2024 DULoxetine (CYMBALTA) 60 MG extended release capsule Take 1 capsule by mouth daily 30 capsule 1 08/14/2024 baclofen (LIORESAL) 20 MG tablet Take 1 tablet by mouth in the morning, at noon, in the evening, and at bedtime 30 tablet 1 08/14/2024 sennosides-docusate sodium (SENOKOT-S) 8.6-50 MG tablet Take 1 tablet by mouth daily 30 tablet 08/14/2024 ibuprofen (ADVIL;MOTRIN) 600 MG tablet Take 1 tablet by mouth every 6 hours as needed for Pain 30 tablet 1 08/14/2024 Scheduled Active and Recently Administ ered Medications (unrecognized section and content) Medication Order 08/14/2024 08/15/2024 08/16/2024 acetaminophen (TYLENOL) tablet 1,000 mg 1,000 mg, Oral, EVERY 6 HOURS SCHEDULED (4 times per day), First dose (after last modification) on Tue08/13/24 at 1200, Until Discontinued, Maximum dose of acetaminophen is 4000mg from all sources in 24 hours. Alternate ibuprofen and acetaminophen every 4 hours., 0033 (Given - Provider: Hina Sin RN)0726 (Given - Provider: Hina Sin RN)1335 (Given - Provider: Vladislav Hicks RN)2247 (Given - Provider: Hina Sin RN) 0658 (Given - Provider: Hina Sin RN)0931 (Not Given - Provider: Conchita Rodriguez RN - Reason: Order parameters not met)1323 (Given - Provider: Conchita Rodriguez RN)2232 (Given - Provider: Kimberly Rojas RN) 0515 (Given - Provider: Kimberly Rojas RN)0600 (Due)1515 (Given - Provider: Sushma Zurita, RADHA)1800 (Due) baclofen (LIORESAL) tablet 20 mg 20 mg, Oral, 4 TIMES DAILY, First dose on Tue08/12/24 at 2145, Until Discontinued 0901 (Given - Provider: Vladislav Hicks RN)1334 (Given - Provider: Vladislav Hicks RN)1740 (Given - Provider: Vladislav Hicks RN)2247 (Given - Provider: Hina Sin RN) 1008 (Given - Provider: Conchita Rodriguez, RADHA)1326 (Given - Provider: Conchita Rodriguez, RADHA)1658 (Given - Provider: Conchita Rodriguez RN)2302 (Given - Provider: Kimberly Rojas RN) 1027 (Given - Provider: Sushma Zurita RN)1520 (Given - Provider: Sushma Zurita RN - Comment: Pt was in NICU)1700 (Due)2100 (Due) DULoxetine (CYMBALTA) extended release capsule 60 mg 60 mg, Oral, DAILY, First dose on Tue08/13/24 at 0900, Until Discontinued, Do not crush or break. May add contents of capsule to apple juice or apple sauce, but not chocolate. 0901 (Given - Provider: Vladislav Hicks RN) 1009 (Given - Provider: Conchita Rodriguez RN) 1026 (Given - Provider: Ssuhma Zurita RN) enoxaparin (LOVENOX) injection 40 mg 40 mg, SubCUTAneous, DAILY, First dose on Tue08/13/24 at 0900, Until Discontinued, Indication of Use: Prophylaxis-DVT/PE, Administer by deep subCUTAneous injection with pt lying down. Alternate injection sites on abdominal wall. Do not rub site after injection. Check with provider prior to any invasive procedure., 0900 (Given - Provider: Vladislav Hicks RN) 1008 (Given - Provider: Conchita Rodriguez RN) 1025 (Given - Provider: Sushma Zurita RN - Comment: pt was outside) gabapentin (NEURONTIN) tablet 900 mg 900 mg, Oral, 4 times daily, First dose (after last modification) on Tue08/13/24 at 1315, Until Discontinued 0901 (Given - Provider: Vladislav Hicks RN)1335 (Given - Provider: Vladislav Hicks RN)1741 (Given - Provider: Vladislav Hicks RN)2246 (Given - Provider: Hina Sin RN) 1008 (Given - Provider: Conchita Rodriguez, RADHA)1326 (Given - Provider: Conchita Rodriguez, RADHA)1658 (Given - Provider: Conchita Rodriguez RN)2234 (Given - Provider: Kimberly Rojas, RADHA) 1026 (Given - Provider: Sushma Zurita RN - Comment: pt was outside)1520 (Given - Provider: Sushma Zurita RN - Comment: Pt was in NICU)1700 (Due)2100 (Due) ibuprofen (ADVIL;MOTRIN) tablet 600 mg 600 mg, Oral, EVERY 6 HOURS, First dose on Tue08/12/24 at 2145, Until Discontinued, Once tolerating PO, discontinue Ketorolac and begin ibuprofen 8 hours after the final dose of Ketotolac. Alternate ibuprofen and acetaminophen every 4 hours., 0034 (Given - Provider: Hina Sin RN)0727 (Given - Provider: Hina Sin RN)1336 (Given - Provider: Vladislav Hicks RN)2030 (Not Given - Provider: Hina Sin RN - Reason: Other)2247 (Given - Provider: Hina Sin RN) 0657 (Given - Provider: Hina Sin RN)1322 (Given - Provider: Conchita Rodriguez RN)2232 (Given - Provider: Kimberly Rojas RN)2238 (Not Given - Provider: Kimberly Rojas RN - Reason: Contraindicated) 0516 (Given - Provider: Kimberly Rojas RN)0945 (Due)1514 (Given - Provider: Sushma Zurita RN)2145 (Due) levonorgestrel (MIRENA) IUD 52 mg 1 each 1 each, IntraUTERine, ONCE, 1 dose, On Jessica 08/16/24 at 1315 1315 (Due) miconazole (MICOTIN) 2 % powder Topical, 2 TIMES DAILY, First dose on Tue08/14/24 at 0115, Apply to affected area. Substituted for Nystatin (NYSTOP) powder. 0430 (Given - Provider: Hina Sin RN)0907 (Given - Provider: Vladislav Hicks RN)2250 (Given - Provider: Hina Sin RN) 1024 (Given - Provider: Conchita Rodriguez RN) 0017 (Given - Provider: Kimberly Rojas, RADHA)1037 (Not Given - Provider: Sushma Zurita RN - Reason: Patient/family refused - Comment: Pt does not find it helpful; prefers the zinc cream)2100 (Due) oxyBUTYnin (DITROPAN) tablet 5 mg 5 mg, Oral, 4 TIMES DAILY, First dose on 08/12/24 at 2145, Until Discontinued 0901 (Given - Provider: Vladislav Hicks RN)1337 (Given - Provider: Vladislav Hicks RN)1740 (Given - Provider: Vladislav Hicks RN)2247 (Given - Provider: Hina Sin RN) 1009 (Given - Provider: Conchita Rodriguez RN)1327 (Given - Provider: Conchita Rodriguez RN)1658 (Given - Provider: Conchita Rodriguez, RADHA)2237 (Given - Provider: Kimberly Rojas, RADHA) 1027 (Given - Provider: Sushma Zurita, RADHA)1521 (Given - Provider: Sushma Zurita RN - Comment: Pt was in NICU)1700 (Due)2100 (Due) pantoprazole (PROTONIX) tablet 40 mg 40 mg, Oral, DAILY, First dose on Tue08/13/24 at 0900, Until Discontinued, Do not crush or break. Substituted for Omeprazole (PRILOSEC). 0906 (Not Given - Provider: Vladislav Hicks RN - Reason: Patient/family refused) 1024 (Not Given - Provider: Conchita Rodriguez RN - Reason: Patient/family refused) 1027 (Not Given - Provider: Sushma Zurita RN - Reason: Patient/family refused) rOPINIRole (REQUIP) tablet 3 mg 3 mg, Oral, NIGHTLY, First dose on 08/12/24 at 2145, Until Discontinued 224 (Given - Provider: Hina Sin RN) 2236 (Given - Provider: Kimberly Rojas RN) 2100 (Due) sennosides-docusate sodium (SENOKOT-S) 8.6-50 MG tablet 1 tablet 1 tablet, Oral, DAILY, First dose (after last modification) on Tue08/14/24 at 0100, Until Discontinued, 0047 (Given - Provider: Hina Sin RN) 1025 (Given - Provider: Conchita Rodriguez RN) 1027 (Not Given - Provider: Sushma Zurita RN - Reason: Patient/family refused - Comment: prefersmto only take at night) sodium chloride flush 0.9 % injection 5-40 mL 5-40 mL, IntraVENous, EVERY 12 HOURS SCHEDULED (2 times per day), First dose on Tue08/12/24 at 2145, Until Discontinued, For Line Patency: Peripheral IV = 5 mL; Midline or Central Line = 10 mL/lumen. If following IV push medication, administer flush at same rate as the IV push. Flush volume is determined by type of infusion therapy being given. For non-viscous solutions use: Peripheral IV = 5 mL Midline or Central Line = 10 mL/lumen For viscous solutions (i.e. blood components, parenteral nutrition, contrast media, or after obtaining blood sample) use: Peripheral IV = 10 mL Midline or Central Line = 20 mL/lumen, 0902 (Given - Provider: Vladislav Hicks RN)224 (Given - Provider: Hina Sin RN) 1700 (Not Given - Provider: Conchita Rodriguez RN - Reason: Loss of IV access)2145 (Not Given - Provider: Kimberly Rojas RN - Reason: Loss of IV access) 0900 (Due)2100 (Due) Aprvkde-Mnxjet-Cnerd Pertussis (BOOSTRIX) injection 0.5 mL 0.5 mL, IntraMUSCular, PRIOR TO DISCHARGE, 1 dose, Starting on Tue08/12/24 at 2122, Until Discontinued, If not previously administered during at 27-36 weeks as recommended by CDC., traZODone (DESYREL) tablet 50 mg 50 mg, Oral, NIGHTLY, First dose (after last modification) on Tue08/14/24 at 2100, Until Discontinued 2247 (Given - Provider: Hina Sin RN) 2236 (Given - Provider: Kimberly Rojas RN) 2100 (Due) traZODone (DESYREL) tablet 75 mg (CANCELED) 75 mg, Oral, NIGHTLY, First dose on 08/12/24 at 2145, Until Discontinued 0034 (Given - Provider: Hina Sin RN - Comment: patient only takes 50mg at home. does not want 75mg) PRN Medication Order 08/14/2024 08/15/2024 08/16/2024 0.9 % sodium chloride infusion IntraVENous, at 5-250 mL/hr, PRN, if patient receiving piggyback infusions and maintenance fluids are not ordered OR KVO fluids to protect IV site / prevent frequent line interruptions/ long duration, Starting on 08/12/24 at 2121, For piggyback infusion, administer at same rate as piggyback for a total of 25 mL. Enter 25 mL into dose field and piggyback rate into rate field of order. If piggyback is infusing at a rate less than 100 mL/hr, enter 25 mL into dose field and 100 mL/hr into rate field of order. For KVO fluids, enter rate of 20 mL/hr or less into rate field of order., benzocaine-menthol (DERMOPLAST) 20-0.5 % spray Topical, PRN, Pain, Starting on 08/12/24 at 2121, Apply to perineal area. Patient is capable and may self administer at bedside., bisacodyl (DULCOLAX) suppository 10 mg 10 mg, Rectal, DAILY PRN, Starting on 08/12/24 at 2121, Until Discontinued, Constipation, magnesium hydroxide (MILK OF MAGNESIA) 400 MG/5ML suspension 30 mL 30 mL, Oral, DAILY PRN, Starting on 08/12/24 at 2121, Until Discontinued, Constipation, oxyCODONE (ROXICODONE) immediate release tablet 5 mg 5 mg, Oral, EVERY 4 HOURS PRN, Starting on 08/13/24 at 1026, Until Discontinued, Pain Moderate (4-6) 0034 (Given - Provider: Hina Sin RN)0429 (Given - Provider: Hian Sin RN)0902 (Given - Provider: Vladislav Hicks RN)1335 (Given - Provider: Vladislav Hicks RN)1740 (Given - Provider: Vladislav Hicks RN)2246 (Given - Provider: Hina Sin, RADHA) 0250 (Given - Provider: Hina Sin, RADHA)0658 (Given - Provider: Hina Sin, RN)1323 (Given - Provider: Conchita Rodriguez, RN)1743 (Given - Provider: Conchita Rodriguez, RADHA)2232 (Given - Provider: Kimberly Rojas, RADHA) 0515 (Given - Provider: Kimberly Rojas, RADHA)1023 (Given - Provider: Sushma Zurita, RN)1515 (Given - Provider: Sushma Zurita, RN) simethicone (MYLICON) chewable tablet 80 mg 80 mg, Oral, EVERY 6 HOURS PRN, Starting on 08/12/24 at 2121, Until Discontinued, Cramping, Flatulence, 2231 (Given - Provider: Kimberly Rojas RN) sodium chloride flush 0.9 % injection 5-40 mL 5-40 mL, IntraVENous, PRN, Starting on 08/12/24 at 2121, Until Discontinued, Line Care, After every IV line use, For Line Patency: Peripheral IV = 5 mL; Midline or Central Line = 10 mL/lumen. If following IV push medication, administer flush at same rate as the IV push. Flush volume is determined by type of infusion therapy being given. For non-viscous solutions use: Peripheral IV = 5 mL Midline or Central Line = 10 mL/lumen For viscous solutions (i.e. blood components, parenteral nutrition, contrast media, or after obtaining blood sample) use: Peripheral IV = 10 mL Midline or Central Line = 20 mL/lumen, therapeutic (THERA-DERM) hand/body lotion Topical, PRN, Dry Skin, nipple discomfort, Starting on 08/12/24 at 2121, witch [place]-glycerin (TUCKS) pad Topical, PRN, Hemorrhoids, For perineal pain or discomfort, Starting on 08/12/24 at 2121, Apply to perineal area. Patient is capable and may self administer at bedside., FOR RECORDS PERTAINING TO PATIENTS WHO ARE [...] BE BASED ON THE PRIMARY CLINICAL RECORDS. [facility], [facility]. provides no warranty or guarantee of the accuracy or completeness of information in this document.
== END 2025-06-27 14:39 | disposition home or self-care (01) ==
LOC: MRI 14:38
PROVIDERS: PCP Internal Medicine; Visit Provider Nurse Practitioner Family
DX: M54.9 Dorsalgia, unspecified (principal); G82.20 Paraplegia, unspecified; S24.103A Unspecified injury at T7-T10 level of thoracic spinal cord, initial encounter; S34.109A Unspecified injury to unspecified level of lumbar spinal cord, initial encounter; G03.9 Meningitis, unspecified; G95.0 Syringomyelia and syringobulbia
CPT/HCPCS: 72157; 72158; A9575